=== PATIENT | female | born 1975 | race American Indian/Alaskan Native ===

== ENCOUNTER 2017-12-25 15:56 | Inpatient (IN) | payer MEDICAID ==
[2017-12-25 16:04] VITALS: BMI 10.6
--- NOTE | 2017-12-25 17:01 | ED PDOC ---
Arrival/HPI - General Time Seen by Provider: 12/25/17 16:15 Historian: Patient, Family (Mother) - History of Present Illness Narrative History of Present Illness (Text): 12/25/17 16:20 A 42 year old female, whose past medical history includes mental retardation, presents to the emergency department accompanied by mother complaining of hypoglycemic episode that occurred today. Per patient's mother, patient was noted to be not feeling well this morning and would appear to be intermittently confused. Mother further noted Patient had a brief episode of looking straight and was unresponsive to any commands. Mother reported patient sustained a seizure and ems was called. EMS noted patient's blood sugar was very low and administered an amp of D50 prior to arrival and patient was noted to have a low body temperature of 86.7. Mother denies any recent sick contacts, sick hospitalizations, fever, chills, dysuria, hematuria, bowel incontinence, or any other symptoms. A more complete HPI is unable to be obtained due to the patient's clinical condition. PMD: Dr. Ritchie Mariano Time/Duration: 4-6 hours (earlier today) Symptom Onset: Gradual Symptom Course: Worsening Quality: Unable to Describe Severity Level: Severe Activities at Onset: Light Context: Home Past Medical History - Provider Review Nursing Documentation Reviewed: Yes - Travel History Have you recently traveled outside [place] w/in the past 3 mons?: No Family/Social History - Physician Review Nursing Documentation Reviewed: Yes Family/Social History: Unknown Family HX Smoking Status: Never Smoked Allergies/Home Meds Allergies/Adverse Reactions: Allergies No Known Allergies Allergy (Verified 12/25/17 21:52) Home Medications: Home Meds Medication Instructions Recorded Confirmed Risperidone [Risperdal] 1 mg PO DAILY 12/25/17 12/25/17 Review of Systems - Physician Review All systems were reviewed & negative as marked: Yes - Review of Systems Systems not reviewed;Unavailable: Other Physical Exam Vital Signs Reviewed: Yes Vital Signs Temp Pulse Resp BP Pulse Ox 12/25/17 20:10 90.0 F L 84 16 119/74 12/25/17 18:51 89.4 F L 87 18 93 L 12/25/17 16:33 96.7 F L 71 19 123/65 98 Temperature: Hypothermic Blood Pressure: Normal Pulse: Regular Respiratory Rate: Normal Appearance: Positive for: Well-Appearing, Non-Toxic, Comfortable Pain Distress: None Mental Status: Positive for: Alert and Oriented X 3 - Systems Exam Head: Present: Atraumatic, Normocephalic Pupils: Present: PERRL Extroacular Muscles: Present: EOMI Conjunctiva: Present: Normal Mouth: Present: Moist Mucous Membranes Neck: Present: Normal Range of Motion Respiratory/Chest: Present: Clear to Auscultation, Good Air Exchange, Tachypneic , Other (contracted to left side ). No: Respiratory Distress, Accessory Muscle Use, Wheezes, Decreased Breath Sounds, Rales, Retracting, Rhonchi, Tender to Palpation Cardiovascular: Present: Regular Rate and Rhythm, Normal S1, S2. No: Murmurs Abdomen: Present: Other (Abdomen is scaphoid; pulses strong and equal, bilateral and present). No: Tenderness, Distention, Normal Bowel Sounds, Peritoneal Signs, Rebound, Guarding, McBurney's Point Tender, Rovsing's Sign Present, Hernias, Feeding Tubes, Ostomy Tubes, Mass/Organomegaly, Scars Back: Present: Normal Inspection Upper Extremity: Present: Normal Inspection. No: Cyanosis, Edema Lower Extremity: Present: Normal Inspection. No: Edema Neurological: Present: GCS=15, CN II-XII Intact, Speech Normal Skin: Present: Warm, Dry, Normal Color. No: Rashes Psychiatric: Present: Alert, Oriented x 3, Normal Insight, Normal Concentration Medical Decision Making ED Course and Treatment: 12/25/17 16:25 Impression: A 42 y/o F w/ h/o mental retardation presenting with hypoglycemic seizure Differential Diagnosis included but are not limited to: - Neoplasm - Sepsis - UTI - PNA Plan: -- EKG -- Labs -- VBG --Antibiotics --IVF -- Chest X-ray -- Blood Culture -- Urine Culture -- Urinalysis -- Reassess and disposition Prior Visits: Notes and results from previous visits were reviewed. Progress Notes: 12/25/17 16:25 Patient noted to be hypoglycemic to 60s, additional d50 syringe given. IVF switched from NS to D51/2NS. Hospitalist called. 12/25/17 17:[address] Whitmore(hospitalist), who is aware and agrees with decision to pursue head CT and ultrasound of abdomen; will follow up on patient once imaging studies have been resulted. 12/25/17 18:[address] Ruffin(health unit supervisor), who has agreed to come to emergency room and examine patient. 12/25/17 18:[address] Ruffin wo accepts him onto his service. Dr. Whitmore updated on patient's status. - Lab Interpretations Microbiology Results: Microbiology Results 12/25/17 16:45 Blood Blood Culture - Preliminary NO GROWTH AFTER 24 HOURS 12/25/17 16:30 Blood Blood Culture - Preliminary NO GROWTH AFTER 24 HOURS Lab Results: 12/25/17 16:45 12/25/17 16:45 Lab Results 12/25/17 18:00: Acetaminophen < 10.0 L 12/25/17 17:51: POC Glucose (mg/dL) 63 L 12/25/17 16:45: pO2 28 L, VBG pH 7.22 L, VBG pCO2 65.0 H, VBG HCO3 26.6, VBG Total CO2 28.6 H, VBG O2 Sat (Calc) 42.6, VBG Base Excess -2.5 L, VBG Potassium 4.3, Sodium 143.0, Chloride 113.0 H, Glucose 107 H, Lactate 1.4, FiO2 21.0, Venous Blood Potassium 4.3 12/25/17 16:45: PT 25.8 H, INR 2.23, APTT 27.2 12/25/17 16:45: WBC 9.1, RBC 3.47 L, Hgb 9.0 L, Hct 27.2 L, MCV 78.4 L, MCH 25.9 , MCHC 33.1, RDW 15.9 H, Plt Count 137, MPV 10.9, Gran % 85.1 H, Lymph % (Auto) 13.7 L, Starr % (Auto) 1.2, Eos % (Auto) 0.0 L, Baso % (Auto) 0.0, Gran # 7.71 H , Lymph # (Auto) 1.2, Starr # (Auto) 0.1, Eos # (Auto) 0.0, Baso # (Auto) 0.00 12/25/17 16:45: Beta HCG, Quant < 2.39 12/25/17 16:45: Sodium 143, Chloride 113 H, Potassium 4.5, Carbon Dioxide 26, Anion Gap 9 L, BUN 41 H, Creatinine 0.7, Est GFR ( Amer) > 60, Est GFR ( Non-Af Amer) > 60, Random Glucose 106, Calcium 6.3 L*, Total Bilirubin 0.7, AST 1576 H, ALT 1103 H, Alkaline Phosphatase 924 H, Troponin I < 0.01, Total Protein 4.4 L, Albumin 1.7 L, Globulin 2.6, Albumin/Globulin Ratio 0.7 L 12/25/17 16:15: POC Glucose (mg/dL) 213 H - RAD Interpretation Radiology Orders: 12/25/17 18:03 HEAD W/O CONTRAST [CT] Stat ABDOMEN COMPLETE [US] Stat 12/25/17 20:18 CHEST PORTABLE [RAD] Stat - Medication Orders Current Medication Orders: Heparin Sodium (Porcine) (Heparin) 5,000 units SC Q12 NASH PRN Reason: Protocol Last Admin: 12/26/17 22:25 Dose: 5,000 units Subcutaneous Administrations Document 12/26/17 22:25 AYAAN (Rec: 12/26/17 23:25 [facility] Injection Site MAR Injection Site Left Abdomen Charges for Administration # of Subcutaneous Administrations 1 Hydrocortisone Sodium Succinate (Solu-Cortef) 50 mg IVP Q6 [facility] Last Admin: 12/26/17 23:47 Dose: 50 mg IVP Administration Document 12/26/17 23:47 AYAAN (Rec: 12/26/17 23:47 [facility]) Charges for Administration # of IVP Administrations 1 Norepinephrine Bitartrate 8 mg (/ Sodium Chloride) 508 mls @ 15.24 mls/hr IV .Q24H PRN; Protocol; 4 MCG/MIN PRN Reason: TITRATE PER MD ORDER Last Titration: 12/26/17 23:46 Dose: 0 mcg/min, 0 mls/hr Titration Intervention Document 12/26/17 23:46 AYAAN (Rec: 12/26/17 23:46 [facility]) Titration Intake Titration Intake 10 Cumulative Intake 332 Cumulative Intake (Rx) 332 Waste Amount 0 Container Volume 176 Titration Dosing Titration Dose 0 IV Rate 0 Intake/Decrease Paused Cumulative Dose 5.228 Piperacillin Sod/Tazobactam Sod (Zosyn 3.375 In Ns 100ml) 100 mls @ 200 mls/hr IVPB Q6 NASH PRN Reason: Protocol Stop: 01/01/18 20:33 Last Admin: 12/26/17 23:48 Dose: 200 mls/hr eMAR Start Stop Document 12/26/17 23:48 AYAAN (Rec: 12/26/17 23:48 [facility]AN [facility]) Intravenous Solution Start Date 12/26/17 Start Time 23:48 End Date 12/27/17 End time 00:40 Total Infusion Time 52 Vancomycin HCl (Vancomycin 1gm) 1 gm in 250 mls @ 167 mls/hr IVPB Q12 NASH PRN Reason: Protocol Last Admin: 12/26/17 10:46 Dose: Levetiracetam 500 mg/ Sodium (Chloride) 105 mls @ 460 mls/hr IV Q12 NASH Last Admin: 12/26/17 22:25 Dose: 460 mls/hr eMAR Start Stop Document 12/26/17 22:25 AYAAN (Rec: 12/26/17 23:26 [facility]YAAN [facility]) Intravenous Solution Start Date 12/26/17 Start Time 22:00 End Date 12/26/17 End time 23:00 Total Infusion Time 60 Dextrose/Sodium Chloride (Dextrose 5%/0.45% Ns 1000 Ml) 1,000 mls @ 125 mls/hr IV .Q8H NASH Last Admin: 12/26/17 23:24 Dose: 125 mls/hr Pantoprazole Sodium (Protonix Inj) 40 mg IVP DAILY NASH Last Admin: 12/26/17 09:18 Dose: 40 mg IVP Administration Document 12/26/17 09:18 AE (Rec: 12/26/17 09:18 AE [id number]) Charges for Administration # of IVP Administrations 1 Discontinued Medications Albumin Human (Albumin Human 25% (12.5 Gm/50 Ml)) 12.5 gm IV ONCE ONE Stop: 12/26/17 03:44 Last Admin: 12/26/17 04:08 Dose: 12.5 gm eMAR Start Stop Document 12/26/17 04:08 MG (Rec: 12/26/17 04:09 MG [id number]) Intravenous Solution Start Date 12/26/17 Start Time 04:08 End Date 12/26/17 End time 05:08 Total Infusion Time 60 Atropine Sulfate (Atropine) 0.5 mg IVP STAT STA Stop: 12/25/17 20:05 Last Admin: 12/25/17 20:10 Dose: 0.5 mg IVP Administration Document 12/25/17 20:10 CNR (Rec: 12/25/17 20:17 CNR [id number]) Charges for Administration # of IVP Administrations 1 Calcium Gluconate (Calcium Gluconate Iv) 1,000 mg IVP ONCE ONE Stop: 12/25/17 20:12 Last Admin: 12/25/17 20:17 Dose: 1,000 mg IVP Administration Document 12/25/17 20:17 CNR (Rec: 12/25/17 20:17 CNR [id number]) Charges for Administration # of IVP Administrations 1 Dextrose (Dextrose 50% Inj) 50 ml IVP STAT STA Stop: 12/25/17 17:57 Last Admin: 12/25/17 17:54 Dose: 50 ml IVP Administration Document 12/25/17 17:54 GMD (Rec: 12/25/17 19:05 GMD [id number]) Charges for Administration # of IVP Administrations 1 Dextrose (Dextrose 50% Inj) 50 ml IVP STAT STA Stop: 12/26/17 12:45 Dextrose/Sodium Chloride (Dextrose 5%/0.45% Ns 1000 Ml) 1,000 mls @ 200 mls/hr IV .Q5H NASH Last Admin: 12/26/17 00:11 Dose: 200 mls/hr eMAR Start Stop Document 12/26/17 00:11 MG (Rec: 12/26/17 00:11 MG [id number]) Intravenous Solution Start Date 12/26/17 Start Time 00:11 Vancomycin HCl (Vancomycin 1gm) 1 gm in 250 mls @ 167 mls/hr IVPB DAILY NASH PRN Reason: Protocol Last Admin: 12/26/17 09:21 Dose: 167 mls/hr eMAR Start Stop Document 12/26/17 09:21 AE (Rec: 12/26/17 09:24 AE [id number]) Intravenous Solution Start Date 12/26/17 Start Time 09:24 End Date 12/26/17 End time 11:00 Total Infusion Time 96 Sodium Chloride (Sodium Chloride 0.9%) 500 mls @ 500 mls/hr IV .Q1H STA Stop: 12/26/17 03:02 Last Admin: 12/26/17 02:05 Dose: 500 mls/hr eMAR Start Stop Document 12/26/17 02:05 AYAAN (Rec: 12/26/17 03:17 [facility]YAAN [email or web address]) Intravenous Solution Start Date 12/26/17 Start Time 02:00 End Date 12/26/17 End time 02:30 Total Infusion Time 30 Sodium Chloride (Sodium Chloride 0.9%) 500 mls @ 500 mls/hr IV .Q1H NASH Last Admin: 12/26/17 02:50 Dose: 500 mls/hr eMAR Start Stop Document 12/26/17 02:50 AYAAN (Rec: 12/26/17 03:20 AYAAN [email or web address]) Intravenous Solution Start Date 12/26/17 Start Time 02:45 End Date 12/26/17 End time 03:30 Total Infusion Time 45 Sodium Chloride (Sodium Chloride 0.9%) 1,000 mls @ 125 mls/hr IV .Q8H NASH Last Admin: 12/26/17 06:00 Dose: 125 mls/hr eMAR Start Stop Document 12/26/17 06:00 MG (Rec: 12/26/17 06:35 MG [id number]) Intravenous Solution Start Date 12/26/17 Start Time 06:00 Albumin Human (Albumin Human 25% (12.5 Gm/50 Ml)) 50 mls @ 1 mls/min IVPB ONCE ONE Stop: 12/26/17 06:04 Last Admin: 12/26/17 06:20 Dose: 1 mls/min eMAR Start Stop Document 12/26/17 06:20 MG (Rec: 12/26/17 06:21 MG [id number]) Intravenous Solution Start Date 12/26/17 Start Time 06:30 End Date 12/26/17 End time 07:20 Total Infusion Time 50 Sodium Chloride (Sodium Chloride 0.9%) 500 mls @ 999 mls/hr IV .Q31M STA Stop: 12/26/17 08:12 Last Admin: 12/26/17 08:05 Dose: 999 mls/hr eMAR Start Stop Document 12/26/17 08:05 AE (Rec: 12/26/17 08:06 AE [id number]) Intravenous Solution Start Date 12/26/17 Start Time 08:06 End Date 12/26/17 End time 09:06 Total Infusion Time 60 Potassium Chloride (Potassium Chloride 20 Meq/100 Ml) 20 meq in 100 mls @ 50 mls/hr IVPB Q2H NASH Stop: 12/26/17 12:29 Last Admin: 12/26/17 12:30 Dose: 50 mls/hr eMAR Start Stop Document 12/26/17 12:30 AE (Rec: 12/26/17 14:33 AE [id number]) Intravenous Solution Start Date 12/26/17 Start Time 12:30 End Date 12/26/17 End time 14:30 Total Infusion Time 120 Magnesium Sulfate/Dextrose (Magnesium Sulfate 1 Gm/100 Ml D5w) 1 gm in 100 mls @ 100 mls/hr IVPB ONCE ONE Stop: 12/26/17 10:30 Last Admin: 12/26/17 13:30 Dose: 100 mls/hr eMAR Start Stop Document 12/26/17 13:30 AE (Rec: 12/26/17 14:30 AE [id number]) Intravenous Solution Start Date 12/26/17 Start Time 13:30 End Date 12/26/17 End time 14:30 Total Infusion Time 60 Levetiracetam 1,000 mg/ Sodium (Chloride) 110 mls @ 440 mls/hr IV ONCE ONE Stop: 12/26/17 11:40 Last Admin: 12/26/17 12:30 Dose: 440 mls/hr eMAR Start Stop Document 12/26/17 12:30 AE (Rec: 12/26/17 14:29 AE [id number]) Intravenous Solution Start Date 12/26/17 Start Time 12:30 End Date 12/26/17 End time 12:45 Total Infusion Time 15 Lorazepam (Ativan) 0.5 mg IVP ONCE ONE PRN Reason: Protocol Stop: 12/25/17 21:07 Last Admin: 12/25/17 20:30 Dose: 0.5 mg IVP Administration Document 12/25/17 20:30 CNR (Rec: 12/25/17 21:07 CNR [id number]) Charges for Administration # of IVP Administrations 1 Pneumococcal Polyvalent Vaccine (Pneumovax 23 Vaccine) 0.5 ml IM .ONCE ONE Stop: 12/25/17 23:02 Last Admin: 12/26/17 08:59 Dose: Immunization Registry Document 12/26/17 08:59 AE (Rec: 12/26/17 08:59 AE [id number]) Immunization Registry Consent Date 12/25/17 - Scribe Statement The provider has reviewed the documentation as recorded by the José Luisibmelanie Boyd All medical record entries made by the Scribe were at my direction and personally dictated by me. I have reviewed the chart and agree that the record accurately reflects my personal performance of the history, physical exam, medical decision making, and the department course for this patient. I have also personally directed, reviewed, and agree with the discharge instructions and disposition. Disposition/Present on Arrival - Present on Arrival Any Indicators Present on Arrival: No History of DVT/PE: No History of Uncontrolled Diabetes: No Urinary Catheter: No History of Decub. Ulcer: No - Disposition Have Diagnosis and Disposition been Completed?: Yes Diagnosis: Hypoglycemia, Seizure Disposition: HOSPITALIZED Disposition Time: 19:20 Patient Plan: ICU Patient Problems: Current Active Problems Problem Status Onset Hypoglycemia Acute Seizure Acute Condition: SERIOUS
[2017-12-25 17:02] LABS: VENOUS BLOOD GAS BASE EXCESS -2.5 mmol/L (0.0-2.0); VENOUS BLOOD GAS PO2 28 mm/Hg (30-55); VENOUS BLOOD PH 7.22 (7.32-7.43)
[2017-12-25 17:07] LABS: GRAN # 7.71 (1.4-6.5); GRAN % 85.1 % (50.0-68.0); LYMPH # 1.2 (1.2-3.4); LYMPH % 13.7 % (22.0-35.0); MEAN CELL VOLUME 78.4 fl (80.0-105.0); MEAN CORPUSCULAR HEMOGLOBIN 25.9 pg (25.0-35.0); MEAN CORPUSCULAR HGB CONC 33.1 g/dl (31.0-37.0); MEAN PLATELET VOLUME 10.9 fl (7.0-11.0); MONO # 0.1 (0.1-0.6); MONO % 1.2 % (1.0-6.0); RBC 3.47 10^6/uL (3.5-6.1); RED CELL DISTRIBUTION WIDTH 15.9 % (11.5-14.5); WHITE BLOOD COUNT 9.1 10^3/ul (4.5-11.0)
[2017-12-25 17:11] LABS: INR 2.23; PARTIAL THROMBOPLASTIN TIME 27.2 Seconds (25.1-36.5); PROTHROMBIN TIME 25.8 SECONDS (9.4-12.5)
[2017-12-25 17:23] LABS: TROPONIN I < 0.01 ng/mL
[2017-12-25 17:39] LABS: ALB/GLOB RATIO 0.7 (1.1-1.8); ALBUMIN 1.7 g/dL (3.0-4.8); ALT/SGPT 1103 U/L (7-56); BLOOD UREA NITROGEN 41 mg/dL (7-21); CALCIUM 6.3 mg/dL (8.4-10.5); GFR NON-AFRICAN AMERICAN > 60
[2017-12-25 17:45] LABS: AST/SGOT 1576 U/L (14-36)
[2017-12-25] MEDS ORDERED: Dextrose 50% SYRINGE Inj (50 ml) ONE (17:54)
[2017-12-25] MEDS ORDERED: Dextrose 50% SYRINGE Inj (50 ml) IVP STA (17:56)
--- NOTE | 2017-12-25 18:52 | CARD ---
APPROVED REPORT Date of service: 12/25/2017 EKG Measurement Heart [id number] <Conclusion> A Fib with slow Ventricular response Nonspecific ST and T wave abnormality Prolonged QT Abnormal ECG
[2017-12-25] MEDS: Dextrose 5%/0.45% NS 1,000 ML IV SCH (19:05)
[2017-12-25 19:38] LABS: URINE BILIRUBIN NEGATIVE (NEGATIVE); URINE BLOOD NEGATIVE (NEGATIVE); URINE GLUCOSE (UA) NEGATIVE (NEGATIVE); URINE LEUKOCYTE ESTERASE NEGATIVE Leu/uL (NEGATIVE); URINE PROTEIN NEGATIVE mg/dL (<30 mg/dL); URINE UROBILINOGEN 0.2 E.U./dL (<1 E.U./dL)
[2017-12-25 19:40] LABS: URINE APPEARANCE CLEAR (CLEAR); URINE COLOR LIGHT YELLOW (YELLOW)
[2017-12-25 20:22] LABS: ARTERIAL BLOOD GAS HCO3 21.6 mmol/L (21-28); ARTERIAL BLOOD GAS HEMOGLOBIN 7.8 g/dL (11.7-17.4); ARTERIAL BLOOD GAS O2 CAPACITY 10.9 mL/dl (16-24); ARTERIAL BLOOD GAS O2 CONTENT 10.9 ML/dl (15-23); ARTERIAL BLOOD GAS O2 SAT 99.6 % (95-98); ARTERIAL BLOOD GAS PCO2 41 mm/Hg (35-45); ARTERIAL BLOOD GAS PH 7.33 (7.35-7.45); ARTERIAL BLOOD GAS TCO2 22.9 mmol.L (22-28)
--- NOTE | 2017-12-25 20:52 | CP.PCM.HP ---
<Manoj Knox - Last Filed: 12/26/17 05:49> History of Present Illness - History of Present Illness History of Present Illness: Manoj Knox, PGY-1 History and Physical for Hospitalist Service CC: Hypoglycemia HPI: Ms. Mccartney is a 42 year old Female with developmental delay who presents with unresponsiveness and a seizure in the field. Patient lives with her mother , who provided the history. Patient had no symptoms until the late morning, when she started feeling weak and was staring into space and was not responding to questions. These symptoms had never occurred previously. Mother reports that patient's legs gave out, and she fell to the ground. Patient's mother was unclear whether she hit her head or how she landed on the ground. EMS was called , at which time they found that her sugars were in the 40's. Patient received 1 amp of D50 and reportedly had seizure activity after infusion. Patient's mother does not report any seizure activity in the past. Remainder of HPI and ROS was unobtainable due to patient's mental status. PMHx: history of mental retardation PSHx: none All: NKDA Social: denies ETOH, tobacco, IVDU. Currently lives at home with mom Family Hx: noncontributory Meds: Risperidone 1 mg PO daily PMD: Dr. Laura Pharmacy: [facility] Present on Admission - Present on Admission Any Indicators Present on Admission: Yes Decubitus Ulcer Present: Yes Decubitus Ulcer Location: R gluteal area Past Patient History - Past Social History Smoking Status: Never Smoked - CARDIAC Hx Cardiac Disorders: No - PULMONARY Hx Respiratory Disorders: No - NEUROLOGICAL Hx Neurological Disorder: No - HEENT Hx HEENT Problems: No - RENAL Hx Chronic Kidney Disease: No - ENDOCRINE/METABOLIC Hx Endocrine Disorders: No - HEMATOLOGICAL/ONCOLOGICAL Hx Blood Disorders: No - INTEGUMENTARY Hx Dermatological Problems: No - MUSCULOSKELETAL/RHEUMATOLOGICAL Hx Musculoskeletal Disorders: No - GASTROINTESTINAL Hx Gastrointestinal Disorders: No - GENITOURINARY/GYNECOLOGICAL Hx Genitourinary Disorders: No - PSYCHIATRIC Hx Psychophysiologic Disorder: Yes Hx Substance Use: No Other/Comment: Developmental delay - SURGICAL HISTORY Hx Surgeries: No Meds Allergies/Adverse Reactions: Allergies Allergy/AdvReac Type Severity Reaction Status Date / Time No Known Allergies Allergy Verified 12/25/17 21:52 Physical Exam - Constitutional Appears: In Acute Distress, Unkempt, Older Than Stated Age, Cachectic - Head Exam Head Exam: ATRAUMATIC. absent: NORMAL INSPECTION, NORMOCEPHALIC - Eye Exam Eye Exam: Normal appearance Pupil Exam: PERRL Additional comments: Patient unable to cooperate with commands. - ENT Exam ENT Exam: Mucous Membranes Dry - Neck Exam Neck exam: Positive for: Normal Inspection - Respiratory Exam Respiratory Exam: Rales (bilateral bbases), NORMAL BREATHING PATTERN - Cardiovascular Exam Cardiovascular Exam: Irregular Rhythm, +S1, +S2 - GI/Abdominal Exam GI & Abdominal Exam: Tenderness. absent: Distended, Firm, Guarding, Rebound - Extremities Exam Extremities exam: Positive for: calf tenderness, pedal pulses present. Negative for: pedal edema - Back Exam Back exam: NORMAL INSPECTION - Neurological Exam Additional comments: Patient is awake, alert, responds to verbal stimuli, occasionally follows commands, and moves extremities past midline. - Psychiatric Exam Psychiatric exam: Anxious - Skin Skin Exam: Dry, Intact, Pallor, Warm Results - Vital Signs Recent Vital Signs: Last Vital Signs Temp 90.0 F L 12/25/17 20:10 Pulse 84 12/25/17 20:10 Resp 16 12/25/17 20:10 BP 119/74 12/25/17 20:10 Pulse Ox 93 L 12/25/17 18:51 - Labs Result Diagrams: 12/25/17 16:45 12/25/17 16:45 Labs: Laboratory Results - last 24 hr 12/25/17 12/25/17 12/25/17 19:34 20:03 20:19 pCO2 41 pO2 110.0 H HCO3 21.6 ABG pH 7.33 L ABG Total CO2 22.9 ABG O2 Saturation 99.6 H ABG O2 Content 10.9 L ABG Base Excess -4.0 L ABG Hemoglobin 7.8 L ABG Carboxyhemoglobin 1.4 POC ABG HHb (Measured) 0.4 ABG Methemoglobin 0.7 ABG O2 Capacity 10.9 L Hgb O2 Saturation 97.4 FiO2 21.0 POC Glucose (mg/dL) 284 H Urine Color Light yellow Urine Appearance Clear Urine pH 6.0 Ur Specific [place] 1.010 Urine Protein Negative Urine Glucose (UA) Negative Urine Ketones Negative Urine Blood Negative Urine Nitrate Negative Urine Bilirubin Negative Urine Urobilinogen 0.2 Ur Leukocyte Esterase Negative Assessment & Plan - Assessment and Plan (Free Text) Assessment: Assessment: Ms. Mccartney is a 42 year old female with a PMHx of developmental delay who presented with sepsis of unknown etiology. Plan: Neuro: - possible seizure in field vs hypoglycemia - f/u CT head w/o contrast - f/u prolactin - aspiration, fall and seizure precautions in place; Neuro checks q2 - patient had episodes of hypothermia, Tmin 86.3 F, most recent 90.0 F, placed in bear-hugger - Maintain normothermia - Neuro consult placed (Dr. Rios) - appreciate recommendations Cardio: - HR upon admission was 71 bpm, then sander to 87 bpm - BP 123/65 upon admission . Hypothermic - EKG showed A fib with RVR in the 70's, slight QT prolongation with QTc 493. - Trop neg x1. Continue to trend next 2 - unclear if patient is chronically in a. fib. Follow up with Dr. Laura in AM - cardio consut placed (Dr. Newton)- recommendations appreciated - Levophed 4 mcg/min IV PRN, reported bradycardia and hypotension in field - keep MAPs > 65 - continue to monitor vitals Pulm: - f/u CXR final read. ? Dextrocardia, ? LLL infiltrate - keep SaO2 above 92% GI: - Abdominal U/S showed Echogenic atrophic kidneys without focal abnormality, gallbladder sludge without stones, and hepatic steatosis - CT Chest/Abd/Pelvis w/o contrast for source of infection. LLL infiltrate, Left 7-9 rib fractures- ? pathological vs 2/2 to fall, abdominal and pelvic ascites - Acute Liver failure with transaminitis AST/ALT 1576/1103 - Alk Phos 924 - NGT placed - Vanc 1gm IVPB daily and Zosyn 3.375 mg IV q6h broad spectrum ABx coverage - f/u amylase/lipase - f/u Mg and Phos - prophylaxis with protonix Renal/Electrolytes: - BUN and creatinine 41/0.7. Unknown if at baseline - Ammonia of 37 - D5 1/2 NS @ 200 cc/hr - UA negative - ann in place - f/u UDS - f/u AM CMP Endo: - sugars were 63 on admission but were reportedly in 40s in the field. Amp of D50 given at that time. F/u POC - Lactate 1.4 - F/u ammonia level - Pseudohypocalcemia 6.3 with Albumin 1.7 gives corrected Ca of 7.7, Calcium gluconate 1 gm given to replete - f/u TSH - f/u GI consult (Dr. Rizo) - recommendations appreciated - accuchecks - keep patient euglycemic Heme: - Hgbs 9.0, microcytic anemia, unknown if at baseline - ABG pH 7.33/pO2 110/ HCO3 21.6 - PLT 137 - f/u AM CBC - f/u blood and urine cx - ID consult placed (Dr. Jonas) - appreciate recommendations for continued antibiotic coverage - DVT prophylaxis with subq heparin 500 units SC BID Patient seen, case reviewed, and plan discussed with Dr. Diaz. Manoj Knox, PGY-1 <Willie Diaz - Last Filed: 12/28/17 04:37> Results - Vital Signs Recent Vital Signs: Last Vital Signs Temp 99.7 F H 12/27/17 20:00 Pulse 37 L 12/27/17 22:00 Resp 18 12/27/17 18:10 BP 137/82 12/27/17 18:00 Pulse Ox 94 L 12/27/17 18:10 - Labs Result Diagrams: 12/27/17 17:40 12/27/17 19:55 Labs: Laboratory Results - last 24 hr 12/26/17 12/26/17 12/26/17 11:00 14:55 19:49 WBC RBC Hgb Hct MCV MCH MCHC RDW Plt Count MPV Gran % Lymph % (Auto) [place] % (Auto) Eos % (Auto) Baso % (Auto) Gran # Lymph # (Auto) [place] # (Auto) Eos # (Auto) Baso # (Auto) PT INR Sodium Potassium Chloride Carbon Dioxide Anion Gap BUN Creatinine Est GFR ( Amer) Est GFR (Non-Af Amer) POC Glucose (mg/dL) 143 H Random Glucose Calcium Magnesium Total Bilirubin AST ALT Alkaline Phosphatase Total Protein Albumin Globulin Albumin/Globulin Ratio Whole Blood Lead <1 Hep B Core Total Ab Non reactive 12/26/17 12/26/17 12/27/17 21:34 23:48 01:48 WBC RBC Hgb Hct MCV MCH MCHC RDW Plt Count MPV Gran % Lymph % (Auto) [place] % (Auto) Eos % (Auto) Baso % (Auto) Gran # Lymph # (Auto) [place] # (Auto) Eos # (Auto) Baso # (Auto) PT INR Sodium Potassium Chloride Carbon Dioxide Anion Gap BUN Creatinine Est GFR ( Amer) Est GFR (Non-Af Amer) POC Glucose (mg/dL) 162 H 155 H 129 H Random Glucose Calcium Magnesium Total Bilirubin AST ALT Alkaline Phosphatase Total Protein Albumin Globulin Albumin/Globulin Ratio Whole Blood Lead Hep B Core Total Ab 12/27/17 12/27/17 12/27/17 03:57 05:15 05:15 WBC 7.7 RBC 3.95 Hgb 10.9 L Hct 31.4 L MCV 79.5 L MCH 27.6 MCHC 34.7 RDW 15.0 H Plt Count 52 L MPV 10.5 Gran % 93.9 H Lymph % (Auto) 5.1 L [place] % (Auto) 0.9 L Eos % (Auto) 0.0 L Baso % (Auto) 0.1 Gran # 7.24 H Lymph # (Auto) 0.4 L [place] # (Auto) 0.1 Eos # (Auto) 0.0 Baso # (Auto) 0.01 PT INR Sodium 151 H Potassium 2.6 L* D Chloride 116 H Carbon Dioxide 27 Anion Gap 10 BUN 24 H Creatinine 0.8 Est GFR ( Amer) > 60 Est GFR (Non-Af Amer) > 60 POC Glucose (mg/dL) 100 Random Glucose 114 H Calcium 6.7 L* Magnesium Total Bilirubin 2.4 H AST 639 H D ALT 596 H Alkaline Phosphatase 547 H Total Protein 4.7 L Albumin 2.2 L Globulin 2.5 Albumin/Globulin Ratio 0.9 L Whole Blood Lead Hep B Core Total Ab 12/27/17 12/27/17 12/27/17 05:15 05:58 07:00 WBC RBC Hgb Hct MCV MCH MCHC RDW Plt Count MPV Gran % Lymph % (Auto) [place] % (Auto) Eos % (Auto) Baso % (Auto) Gran # Lymph # (Auto) [place] # (Auto) Eos # (Auto) Baso # (Auto) PT 18.2 H INR 1.57 Sodium Potassium Chloride Carbon Dioxide Anion Gap BUN Creatinine Est GFR ( Amer) Est GFR (Non-Af Amer) POC Glucose (mg/dL) 145 H Random Glucose Calcium Magnesium 1.7 Total Bilirubin AST ALT Alkaline Phosphatase Total Protein Albumin Globulin Albumin/Globulin Ratio Whole Blood Lead Hep B Core Total Ab 12/27/17 12/27/17 12/27/17 07:56 10:32 13:10 WBC 9.2 RBC 4.51 Hgb 12.6 Hct 36.0 MCV 79.8 L MCH 27.9 MCHC 35.0 RDW 15.2 H Plt Count 49 L* MPV 10.3 Gran % 93.6 H Lymph % (Auto) 5.4 L [place] % (Auto) 1.0 Eos % (Auto) 0.0 L Baso % (Auto) 0.0 Gran # 8.63 H Lymph # (Auto) 0.5 L [place] # (Auto) 0.1 Eos # (Auto) 0.0 Baso # (Auto) 0.00 PT INR Sodium Potassium Chloride Carbon Dioxide Anion Gap BUN Creatinine Est GFR ( Amer) Est GFR (Non-Af Amer) POC Glucose (mg/dL) 129 H 151 H Random Glucose Calcium Magnesium Total Bilirubin AST ALT Alkaline Phosphatase Total Protein Albumin Globulin Albumin/Globulin Ratio Whole Blood Lead Hep B Core Total Ab 12/27/17 12/27/17 12/27/17 13:28 13:30 16:16 WBC RBC Hgb Hct MCV MCH MCHC RDW Plt Count MPV Gran % Lymph % (Auto) [place] % (Auto) Eos % (Auto) Baso % (Auto) Gran # Lymph # (Auto) [place] # (Auto) Eos # (Auto) Baso # (Auto) PT INR Sodium 152 H Potassium 3.2 L Chloride 114 H Carbon Dioxide 29 Anion Gap 12 BUN 21 Creatinine 0.8 Est GFR ( Amer) > 60 Est GFR (Non-Af Amer) > 60 POC Glucose (mg/dL) 169 H 196 H Random Glucose 166 H Calcium 7.1 L Magnesium Total Bilirubin 2.7 H AST 639 H ALT 660 H Alkaline Phosphatase 680 H D Total Protein 5.4 L Albumin 2.6 L Globulin 2.7 Albumin/Globulin Ratio 0.9 L Whole Blood Lead Hep B Core Total Ab 12/27/17 12/27/17 12/27/17 17:40 18:03 19:43 WBC 9.0 RBC 4.61 Hgb 13.1 Hct 36.8 MCV 79.8 L MCH 28.4 MCHC 35.6 RDW 15.4 H Plt Count 51 L MPV 10.5 Gran % 92.9 H Lymph % (Auto) 5.9 L [place] % (Auto) 1.2 Eos % (Auto) 0.0 L Baso % (Auto) 0.0 Gran # 8.33 H Lymph # (Auto) 0.5 L [place] # (Auto) 0.1 Eos # (Auto) 0.0 Baso # (Auto) 0.00 PT INR Sodium Potassium Chloride Carbon Dioxide Anion Gap BUN Creatinine Est GFR ( Amer) Est GFR (Non-Af Amer) POC Glucose (mg/dL) 177 H 203 H Random Glucose Calcium Magnesium Total Bilirubin AST ALT Alkaline Phosphatase Total Protein Albumin Globulin Albumin/Globulin Ratio Whole Blood Lead Hep B Core Total Ab 12/27/17 19:55 WBC RBC Hgb Hct MCV MCH MCHC RDW Plt Count MPV Gran % Lymph % (Auto) [place] % (Auto) Eos % (Auto) Baso % (Auto) Gran # Lymph # (Auto) [place] # (Auto) Eos # (Auto) Baso # (Auto) PT INR Sodium 149 H Potassium 3.2 L Chloride 113 H Carbon Dioxide 30 Anion Gap 10 BUN 19 Creatinine 0.8 Est GFR ( Amer) > 60 Est GFR (Non-Af Amer) > 60 POC Glucose (mg/dL) Random Glucose 196 H Calcium 7.5 L Magnesium 2.0 Total Bilirubin 2.3 H AST 491 H D ALT 617 H Alkaline Phosphatase 652 H Total Protein 5.4 L Albumin 2.6 L Globulin 2.8 Albumin/Globulin Ratio 0.9 L Whole Blood Lead Hep B Core Total Ab Attending/Attestation - Attestation I have personally seen and examined this patient.: Yes I have fully participated in the care of the patient.: Yes I have reviewed all pertinent clinical information: Yes Notes (Text): 12/28/17 04:35 Patient was seen when she was in the ER . Medical record was reviewed. Agree with history, physical examination, assessment and plan. 42 year old womanis here with hypoglycemia,confusion,possible seizure, hypothermia,hypotension,atrial fibrillation, bradyarrhythmia, sepsis,anemia, dementia,prolonged QT,hypocalcemia,hypoalbuminemia,malnourishment,cachexia.
[2017-12-25] MEDS: Norepinephrine 8 MG in Sodium Chloride 0.9% 500 ML IV PRN (22:05)
[2017-12-25] MEDS ORDERED: Pneumococcal 23-Valent Vaccine IM ONE (23:01)
[2017-12-25] MEDS: Vancomycin 1gm in NS 250ml 1 GM/250 ML BAG IVPB SCH (23:08)
[2017-12-25] MEDS: Piperacillin/Tazobact 3.375 gm 100 ML IVPB SCH (23:09)
[2017-12-25 23:44] LABS: BARBITURATES, UR NEGATIVE (NEGATIVE); BENZODIAZEPINES, UR NEGATIVE (NEGATIVE); OPIATES, UR NEGATIVE (NEGATIVE); PHENCYCLIDINE, UR NEGATIVE (NEGATIVE)
[2017-12-26] MEDS: Dextrose 5%/0.45% NS 1,000 ML IV SCH ×3 (00:11→23:24)
[2017-12-26] MEDS: Piperacillin/Tazobact 3.375 gm 100 ML IVPB SCH ×5 (00:39→23:48)
[2017-12-26] MEDS ORDERED: Sodium Chloride 0.9% 500 ML IV STA ×2 (02:03→07:42)
--- NOTE | 2017-12-26 02:32 | CP.PCM.CON ---
Past Patient History - Past Social History Smoking Status: Never Smoked - CARDIAC Hx Cardiac Disorders: No - PULMONARY Hx Respiratory Disorders: No - NEUROLOGICAL Hx Neurological Disorder: No - HEENT Hx HEENT Problems: No - RENAL Hx Chronic Kidney Disease: No - ENDOCRINE/METABOLIC Hx Endocrine Disorders: No - HEMATOLOGICAL/ONCOLOGICAL Hx Blood Disorders: No - INTEGUMENTARY Hx Dermatological Problems: No - MUSCULOSKELETAL/RHEUMATOLOGICAL Hx Musculoskeletal Disorders: No - GASTROINTESTINAL Hx Gastrointestinal Disorders: No - GENITOURINARY/GYNECOLOGICAL Hx Genitourinary Disorders: No - PSYCHIATRIC Hx Psychophysiologic Disorder: Yes Hx Substance Use: No Other/Comment: Developmental delay - SURGICAL HISTORY Hx Surgeries: No Meds Allergies/Adverse Reactions: Allergies Allergy/AdvReac Type Severity Reaction Status Date / Time No Known Allergies Allergy Verified 12/25/17 21:52 - Medications Medications: Current Medications Heparin Sodium (Porcine) (Heparin) 5,000 units SC BID NASH PRN Reason: Protocol Dextrose/Sodium Chloride (Dextrose 5%/0.45% Ns 1000 Ml) 1,000 mls @ 200 mls/hr IV .Q5H [facility] Last Admin: 12/26/17 00:11 Dose: 200 mls/hr Norepinephrine Bitartrate 8 mg (/ Sodium Chloride) 508 mls @ 15.24 mls/hr IV .Q24H PRN; Protocol; 4 MCG/MIN PRN Reason: TITRATE PER MD ORDER Last Titration: 12/26/17 00:30 Dose: 3 mcg/min, 11.43 mls/hr Vancomycin HCl (Vancomycin 1gm) 1 gm in 250 mls @ 167 mls/hr IVPB DAILY NASH PRN Reason: Protocol Last Admin: 12/25/17 23:08 Dose: 167 mls/hr Piperacillin Sod/Tazobactam Sod (Zosyn 3.375 In Ns 100ml) 100 mls @ 200 mls/hr IVPB Q6 NASH PRN Reason: Protocol Stop: 01/01/18 20:33 Last Admin: 12/26/17 00:39 Dose: Not Given Sodium Chloride (Sodium Chloride 0.9%) 500 mls @ 500 mls/hr IV .Q1H STA Stop: 12/26/17 03:02 Pantoprazole Sodium (Protonix Inj) [address] [facility] Results - Vital Signs Recent Vital Signs: Last Vital Signs Temp 98.1 F 12/26/17 01:21 Pulse 57 L 12/26/17 01:21 Resp 22 12/26/17 01:21 BP 87/57 L 12/26/17 01:15 Pulse Ox 98 12/26/17 01:21 - Labs Result Diagrams: 12/25/17 16:45 12/25/17 16:45 Labs: Laboratory Results - last 24 hr 12/25/17 12/25/17 12/25/17 19:34 20:03 20:19 pCO2 41 pO2 110.0 H HCO3 21.6 ABG pH 7.33 L ABG Total CO2 22.9 ABG O2 Saturation 99.6 H ABG O2 Content 10.9 L ABG Base Excess -4.0 L ABG Hemoglobin 7.8 L ABG Carboxyhemoglobin 1.4 POC ABG HHb (Measured) 0.4 ABG Methemoglobin 0.7 ABG O2 Capacity 10.9 L Hgb O2 Saturation 97.4 FiO2 21.0 POC Glucose (mg/dL) 284 H Ammonia Amylase Lipase Urine Color Light yellow Urine Appearance Clear Urine pH 6.0 Ur Specific [place] 1.010 Urine Protein Negative Urine Glucose (UA) Negative Urine Ketones Negative Urine Blood Negative Urine Nitrate Negative Urine Bilirubin Negative Urine Urobilinogen 0.2 Ur Leukocyte Esterase Negative Urine Opiates Screen Urine Methadone Screen Ur Barbiturates Screen Ur Phencyclidine Scrn Ur Amphetamines Screen U Benzodiazepines Scrn U Oth Cocaine Metabols U Cannabinoids Screen 12/25/17 12/25/17 12/25/17 21:30 21:30 23:09 pCO2 pO2 HCO3 ABG pH ABG Total CO2 ABG O2 Saturation ABG O2 Content ABG Base Excess ABG Hemoglobin ABG Carboxyhemoglobin POC ABG HHb (Measured) ABG Methemoglobin ABG O2 Capacity Hgb O2 Saturation FiO2 POC Glucose (mg/dL) Ammonia 37 H Amylase 367 H Lipase 549 H Urine Color Urine Appearance Urine pH Ur Specific [place] Urine Protein Urine Glucose (UA) Urine Ketones Urine Blood Urine Nitrate Urine Bilirubin Urine Urobilinogen Ur Leukocyte Esterase Urine Opiates Screen Negative Urine Methadone Screen Negative Ur Barbiturates Screen Negative Ur Phencyclidine Scrn Negative Ur Amphetamines Screen Negative U Benzodiazepines Scrn Negative U Oth Cocaine Metabols Negative U Cannabinoids Screen Negative
[2017-12-26] MEDS ORDERED: Sodium Chloride 0.9% 500 ML IV SCH (02:45)
[2017-12-26] MEDS ORDERED: Sodium Chloride 0.9% 1,000 ML IV SCH (02:45)
[2017-12-26] MEDS ORDERED: Albumin Human 25% (12.5 gm/50 ml) IV ONE (03:43)
[2017-12-26] MEDS ORDERED: Albumin Human 25% (12.5gm/50 ML) IVPB ONE (05:15)
[2017-12-26 06:20] LABS: TROPONIN I < 0.01 ng/mL
[2017-12-26 06:38] LABS: GRAN # 7.4 (1.4-6.5); GRAN % 89.1 % (50.0-68.0); HEMOGLOBIN 7.3 g/dL (12.0-16.0); LYMPH # 0.8 (1.2-3.4); LYMPH % 9.1 % (22.0-35.0); MEAN CELL VOLUME 77.5 fl (80.0-105.0); MEAN CORPUSCULAR HEMOGLOBIN 25.7 pg (25.0-35.0); MEAN CORPUSCULAR HGB CONC 33.2 g/dl (31.0-37.0); MEAN PLATELET VOLUME 10.7 fl (7.0-11.0); MONO # 0.2 (0.1-0.6); MONO % 1.8 % (1.0-6.0); RBC 2.84 10^6/uL (3.5-6.1); WHITE BLOOD COUNT 8.3 10^3/ul (4.5-11.0)
[2017-12-26 07:03] LABS: TROPONIN I < 0.01 ng/mL
[2017-12-26 07:57] LABS: ALB/GLOB RATIO 0.8 (1.1-1.8); ALBUMIN 2.1 g/dL (3.0-4.8); ALT/SGPT 788 U/L (7-56); AST/SGOT > 750 U/L (14-36); BLOOD UREA NITROGEN 31 mg/dL (7-21); CALCIUM 6.4 mg/dL (8.4-10.5); GFR NON-AFRICAN AMERICAN > 60
--- NOTE | 2017-12-26 08:03 | RAD ---
Date of service: 12/25/2017 HISTORY: seizure COMPARISON: No prior. FINDINGS: LUNGS: Limited examination as the left costophrenic angle has been excluded from the film. Allowing for this, the lungs are clear. PLEURA: No significant pleural effusion identified, no pneumothorax apparent. CARDIOVASCULAR: Normal. OSSEOUS STRUCTURES: No significant abnormalities. VISUALIZED UPPER ABDOMEN: Normal. OTHER FINDINGS: None. IMPRESSION: No acute findings.
[2017-12-26] MEDS: Vancomycin 1gm in NS 250ml 1 GM/250 ML BAG IVPB SCH ×3 (09:21→22:00)
[2017-12-26 09:23] LABS: INR 1.69; PROTHROMBIN TIME 19.6 SECONDS (9.4-12.5)
[2017-12-26] MEDS ORDERED: Magnesium Sulfate 1 gm in D5W 1 GM/100 ML BAG IVPB ONE (09:31)
--- NOTE | 2017-12-26 09:49 | CT ---
Date of service: 12/25/2017 PROCEDURE: CT HEAD WITHOUT CONTRAST. HISTORY: headache COMPARISON: None available. TECHNIQUE: Axial computed tomography images were obtained through the head/brain without intravenous contrast. Examination is degraded by patient motion. Radiation dose: Total exam DLP = 1650.04 mGy-cm. This CT exam was performed using one or more of the following dose reduction techniques: Automated exposure control, adjustment of the mA and/or kV according to patient size, and/or use of iterative reconstruction technique. FINDINGS: HEMORRHAGE: No intracranial hemorrhage. BRAIN: Alfredo-white matter differentiation is preserved. There is no mass, mass effect or abnormal extra-axial fluid collection. There is no territorial infarction. The midline sagittal structures are normal. VENTRICLES: There is mild age advanced global parenchymal volume loss and proportionate enlargement of the ventricles and cortical sulci. CALVARIUM: There is no calvarial fracture. PARANASAL SINUSES: Predominantly clear. MASTOID AIR CELLS: Predominantly clear. OTHER FINDINGS: There is dislocation of the left lens which is identified in the dependent posterior chamber. There is mild anterior scar and periorbital edema. IMPRESSION: No acute intracranial abnormality. Mild anterior scalp and periorbital edema. A preliminary report was provided by [facility] services.
--- NOTE | 2017-12-26 09:51 | CT ---
Date of service: 12/25/2017 PROCEDURE: CT Chest, Abdomen and Pelvis without intravenous contrast HISTORY: sepsis COMPARISON: None available. TECHNIQUE: Radiation dose: Total exam DLP = 246 mGy-cm. This CT exam was performed using one or more of the following dose reduction techniques: Automated exposure control, adjustment of the mA and/or kV according to patient size, and/or use of iterative reconstruction technique. FINDINGS: CT CHEST WITHOUT CONTRAST: LUNGS: There is a left lower lobe infiltrate or atelectasis which is adjacent to several left-sided rib fractures. There is no pneumothorax MEDIASTINUM: Unremarkable. Normal caliber aorta and pulmonary arterial trunk. Normal size heart. LYMPH NODES: Unremarkable. PLEURA: Unremarkable. No pneumothorax. No pleural fluid. BONES: Unremarkable. OTHER FINDINGS: None. CT ABDOMEN AND PELVIS: Evaluation of the abdomen is severely limited in this case due to lack of intra-abdominal fat as well as edema of the mesenteric fat and ascites. There is no oral or IV contrast LIVER: Unremarkable. No gross lesion or ductal dilatation. GALLBLADDER AND BILE DUCTS: Unremarkable. PANCREAS: Unremarkable. No gross lesion or ductal dilatation. SPLEEN: Unremarkable. ADRENALS: Unremarkable. No mass. KIDNEYS AND URETERS: Unremarkable. No hydronephrosis. No solid mass. VASCULATURE: Unremarkable. No aortic aneurysm. BOWEL: Unremarkable. No obstruction. No gross mural thickening. APPENDIX: Not visualized PERITONEUM: Ascites mesenteric edema , anasarca LYMPH NODES: Unremarkable. No enlarged lymph nodes. BLADDER: Unremarkable. REPRODUCTIVE: Unremarkable. BONES: No acute fracture. OTHER FINDINGS: The report concurs with the preliminary [facility] report The case was reviewed with Dr. Rizo IMPRESSION: Evaluation of the abdomen is severely limited in this case due to lack of intra-abdominal fat as well as edema of the mesenteric fat and ascites. There is no oral or IV contrast Left-sided rib fractures with atelectasis or pneumonia in the left lower lobe No obstruction or free air
[2017-12-26 10:36] LABS: TROPONIN I 0.02 ng/mL
--- NOTE | 2017-12-26 10:50 | US ---
Date of service: 12/25/2017 HISTORY: elevated LFTs COMPARISON: CT from 12/25/2017 TECHNIQUE: Grayscale imaging was performed. FINDINGS: LIVER: Measures 10.1 cm. There is diffuse increased echogenicity of the liver parenchyma. No mass. No intrahepatic bile duct dilatation. GALLBLADDER: The gallbladder is distended. No gallstones, wall thickening or pericholecystic fluid. The sonographic Diaz's sign is negative. COMMON BILE DUCT: Measures 3.6 mm. No stones. No dilatation. PANCREAS: Unremarkable as visualized. No mass. No ductal dilatation. RIGHT KIDNEY: Measures 7.5cm. Small echogenic atrophic kidney. No calculus, mass, or hydronephrosis. LEFT KIDNEY: Measures 5.5cm. Small echogenic atrophic kidney. No calculus, mass, or hydronephrosis. SPLEEN: Normal in size and contour. No mass. AORTA: No aneurysmal dilatation. IVC: Unremarkable. OTHER FINDINGS: None. IMPRESSION: Atrophied liver. Diffuse increased echogenicity in the liver may reflect hepatic steatosis however parenchymal infectious/ inflammatory etiologies cannot be entirely excluded. Clinical and laboratory correlation is advised. Bilateral renal atrophy. A preliminary report was provided by [employer] services.
--- NOTE | 2017-12-26 11:00 | PCM.PROC ---
<America Hernández - Last Filed: 12/26/17 10:58> Procedures Attestation:: I certify that I have explained the specified Operation(s) or Procedure(s), risks, benefits and reasonable alternatives to the Patient and/or other person responsible. The opportunity was given to ask questions and all questions answered - Central Line Placement Right Internal Jugular Triple Lumen Catheter Aseptic technique was employed throughout the procedure: Hand Hygiene done prior to procedure, Full sterile barriers (mask, hair cover, sterile gown, sterile gloves), Full body sterile drape, Chloraprep Antiseptic: 30 second prep for IJ or SC sites CVP Time Out Performed: Yes Pt. Placed on Pulse Ox Monitor: Yes Central Line Prep: Chlorhexidine-Alcohol Combination Local Anesthesia Used: Lidocaine 1% Amount of Anesthesia Used (mls): 5 Ultrasound Used for Placement: Yes Central Line Lumen Inserted: triple Central Line Length: 16 cm Post Procedure: Sutured in Place, Good Blood Return, All Ports Aspirated, Flushed, Capped, Sterile Dressing Applied Secured by: Suture Post procedure dressing: Gauze Post Procedure X-Ray: Yes Patient Tolerated Procedure: Well, No Complications Immediate Complications: None <Quinton Ruffin - Last Filed: 12/26/17 17:51> Addendum Addendum: 12/26/17 17:51 ICU Attending: I was present for the entire procedure. Agree with above. Quinton Ruffin MD [employer]
[2017-12-26] MEDS ORDERED: levETIRAcetam 1,000 MG in Sodium Chloride 0.9% 100 ML IV ONE (11:26)
--- NOTE | 2017-12-26 11:58 | RAD ---
Date of service: 12/26/2017 HISTORY: central line placement COMPARISON: No prior. FINDINGS: LUNGS: No active pulmonary disease. PLEURA: No significant pleural effusion identified, no pneumothorax apparent. CARDIOVASCULAR: Normal. OSSEOUS STRUCTURES: No significant abnormalities. VISUALIZED UPPER ABDOMEN: Normal. OTHER FINDINGS: There is a right internal jugular line that terminates in the right atrium. No pneumothorax IMPRESSION: As above
--- NOTE | 2017-12-26 12:00 | CT ---
Date of service: 12/26/2017 PROCEDURE: CT HEAD WITHOUT CONTRAST. HISTORY: pupils non reactive COMPARISON: Noncontrast head CT 12/25/2017. TECHNIQUE: Axial computed tomography images were obtained through the head/brain without intravenous contrast. Radiation dose: Total exam DLP = 788.41 mGy-cm. This CT exam was performed using one or more of the following dose reduction techniques: Automated exposure control, adjustment of the mA and/or kV according to patient size, and/or use of iterative reconstruction technique. FINDINGS: HEMORRHAGE: No intracranial hemorrhage. BRAIN: Normal contreras-white matter differentiation and density are appreciated throughout the cerebrum and cerebellum with the brainstem appearing unremarkable as well. There is no mass effect. There is no suspicious extra-axial fluid collection and the midline brain anatomy appears diffusely unremarkable. VENTRICLES: Unremarkable. No hydrocephalus. CALVARIUM: No destructive bony lesion or displaced fracture identified including through the skullbase. PARANASAL SINUSES: Unremarkable as visualized. No significant inflammatory changes. MASTOID AIR CELLS: Unremarkable as visualized. No inflammatory changes. OTHER FINDINGS: Limited left greater right periorbital and bilateral frontal scattered soft tissue edema changes. IMPRESSION: Unremarkable noncontrast head CT as discussed above. No significant interval change. Given clinical history, consider follow-up brain MRI if there is no contraindication. Limited left greater right periorbital and bilateral frontal scattered soft tissue edema changes.
[2017-12-26 12:22] LABS: PROLACTIN 29.2 ng/mL (3.0-18.9)
[2017-12-26] MEDS ORDERED: Dextrose 50% SYRINGE Inj (50 ml) IVP STA (12:44)
[2017-12-26 12:45] LABS: HEPATITIS A IGM NEGATIVE (NEGATIVE); HEPATITIS B CORE AB NEGATIVE (NEGATIVE)
[2017-12-26] MEDS ORDERED: Dextrose 50% SYRINGE Inj (50 ml) ONE (12:45)
--- NOTE | 2017-12-26 12:50 | RAD ---
Date of service: 12/26/2017 PROCEDURE: Bilateral ribs HISTORY: rib fracture COMPARISON: CT of the chest abdomen and pelvis 12/25/2017 TECHNIQUE: Three views FINDINGS: Two separate fractures are seen in the left 7th rib. There appears to be callus formation around the more proximal rib consistent with a previous injury. There is also a probable nondisplaced rib fracture of the 8th rib laterally There is an infiltrate at the left lung base that obscures the diaphragm. There is no pneumothorax IMPRESSION: Fractures in the left 7th and 8th ribs
[2017-12-26 12:59] LABS: HEPATITIS C ANTIBODY NEGATIVE (NEGATIVE)
[2017-12-26 13:07] LABS: HEPATITIS B SURFACE AG Negative (NEGATIVE)
--- NOTE | 2017-12-26 13:15 | CP.CCUPN ---
<America Hernández - Last Filed: 12/26/17 13:16> CCU Subjective - Physician Review Events Since Last Encounter (Free Text): Aimeehunter Edgar, PGY-1 ICU Progress Note Patient seen and examined at bedside this morning. Currently on elton hugger with Tmin of 89.2 overnight with most recent temperature of 97.2. Continues to be bradycardic in the 40s. Patient is altered and is poor historian at this time. Per mother, patient slept well and has no complaints. ROS limited due to patient status. CCU Objective - Vital Signs / Intake & Output Intake and Output (Last 8hrs): Intake & Output 12/25/17 12/26/17 12/26/17 22:59 06:59 14:59 Intake Total 3534 Output Total 725 Balance 2809 Weight 60 lb Intake: IV 3534 Left Antecubital 3397 Right Forearm 106 Output: Urine 725 Urethral (Jimenez) 725 Other: Voiding Method Incontinent # Bowel Movements 0 - Physical Exam Head: Positive for: Normocephalic, Other (right orbital swelling) Pupils: Positive for: PERRL, Sluggish Conjunctiva: Positive for: Normal Mouth: Positive for: Moist Mucous Membranes Neck: Positive for: Normal Range of Motion Respiratory/Chest: Positive for: Clear to Auscultation, Good Air Exchange. Negative for: Respiratory Distress, Accessory Muscle Use, Wheezes Cardiovascular: Positive for: Normal S1, S2. Negative for: Murmurs Abdomen: Positive for: Other (cachectic ). Negative for: Tenderness, Distention , Peritoneal Signs, Rebound, Guarding, McBurney's Point Tender, Rovsing's Sign Present, Hernias Back: Positive for: Normal Inspection Upper Extremity: Positive for: Normal Inspection. Negative for: Cyanosis, Edema Lower Extremity: Positive for: Normal Inspection. Negative for: Edema Neurological: Positive for: Other (altered mental status) Skin: Positive for: Warm, Dry, Normal Color. Negative for: Rashes Psychiatric: Positive for: Other (altered) - Medications Active Medications: Active Medications Generic Name Dose Route Start Last Admin Trade Name Freq PRN Reason Stop Dose Admin Heparin Sodium (Porcine) 5,000 units 12/26/17 10:00 Heparin SC Q12 [facility] Protocol Norepinephrine Bitartrate 8 mg 508 mls @ 15.24 mls/hr 12/25/17 20:06 01:30 / Sodium Chloride IV 4 mcg/min .Q24H PRN 15.24 mls/hr TITRATE PER MD ORDER Titration Protocol 4 MCG/MIN Piperacillin Sod/Tazobactam Sod 100 mls @ 200 mls/hr 12/25/17 20:32 12/26/17 06:42 Zosyn 3.375 In Ns 100ml IVPB 01/01/18 20:33 200 mls/hr Q6 NASH Administration Protocol Sodium Chloride 1,000 mls @ 125 mls/hr 12/26/17 02:45 12/26/17 06:00 Sodium Chloride 0.9% IV 125 mls/hr .Q8H [facility]H Administration Vancomycin HCl 1 gm in 250 mls @ 167 mls/hr 12/26/17 10:00 12/26/17 10:46 Vancomycin 1gm IVPB Not Given Q12 [facility] Protocol Pantoprazole Sodium 40 mg 12/26/17 10:00 12/26/17 09:18 Protonix Inj IVP 40 mg DAILY NASH Administration - Patient Studies Lab Studies: Lab Studies 12/26/17 12/26/17 12/26/17 Range/Units 09:35 09:10 09:10 WBC (4.5-11.0) 10^3/ul RBC (3.5-6.1) 10^6/uL Hgb (12.0-16.0) g/dL Hct (36.0-48.0) % MCV (80.0-105.0) fl MCH (25.0-35.0) pg MCHC (31.0-37.0) g/dl RDW (11.5-14.5) % Plt Count (120.0-450.0) 10^3/uL MPV (7.0-11.0) fl Gran % (50.0-68.0) % Lymph % (Auto) (22.0-35.0) % Bond % (Auto) (1.0-6.0) % Eos % (Auto) (1.5-5.0) % Baso % (Auto) (0.0-3.0) % Gran # (1.4-6.5) Lymph # (Auto) (1.2-3.4) Bond # (Auto) (0.1-0.6) Eos # (Auto) (0.0-0.7) Baso # (Auto) (0.0-2.0) K/mm3 PT 19.6 H (9.4-12.5) SECONDS INR 1.69 pCO2 (35-45) mm/Hg pO2 (80-100) mm/Hg HCO3 (21-28) mmol/L ABG pH (7.35-7.45) ABG Total CO2 (22-28) mmol.L ABG O2 Saturation (95-98) % ABG O2 Content (15-23) ML/dl ABG Base Excess (-2.0-3.0) mmol/L ABG Hemoglobin (11.7-17.4) g/dL ABG Carboxyhemoglobin (0.5-1.5) % POC ABG HHb (Measured) (0-5) % ABG Methemoglobin (0.0-3.0) % ABG O2 Capacity (16-24) mL/dl Hgb O2 Saturation (95.0-98.0) % FiO2 % Sodium (132-148) mmol/L Potassium (3.6-5.0) mmol/L Chloride (98-107) mmol/L Carbon Dioxide (21-33) mmol/L Anion Gap (10-20) BUN (7-21) mg/dL Creatinine (0.7-1.2) mg/dl Est GFR ( Amer) Est GFR (Non-Af Amer) POC Glucose (mg/dL) (65-110) mg/dL Random Glucose (70-110) mg/dL Calcium (8.4-10.5) mg/dL Phosphorus (2.5-4.5) mg/dL Magnesium (1.7-2.2) mg/dL Total Bilirubin (0.2-1.3) mg/dL AST (14-36) U/L ALT (7-56) U/L Alkaline Phosphatase (38-126) U/L Ammonia (9-33) umol/L Troponin I 0.02 D ng/mL Total Protein (5.8-8.3) g/dL Albumin (3.0-4.8) g/dL Globulin gm/dL Albumin/Globulin Ratio (1.1-1.8) Amylase (35-125) U/L Lipase (23-300) U/L Procalcitonin (0.19-0.49) NG/ML TSH 3rd Generation 2.98 (0.46-4.68) mIU/mL Prolactin (3.0-18.9) ng/mL Urine Color (YELLOW) Urine Appearance (CLEAR) Urine pH (4.7-8.0) Ur Specific Clayton (1.005-1.035) Urine Protein (<30 mg/dL) mg/dL Urine Glucose (UA) (NEGATIVE) mg/dL Urine Ketones (NEGATIVE) mg/dL Urine Blood (NEGATIVE) Urine Nitrate (NEGATIVE) Urine Bilirubin (NEGATIVE) Urine Urobilinogen (<1 E.U./dL) E.U./dL Ur Leukocyte Esterase (NEGATIVE) Alverto/uL Urine Opiates Screen (NEGATIVE) Urine Methadone Screen (NEGATIVE) Ur Barbiturates Screen (NEGATIVE) Ur Phencyclidine Scrn (NEGATIVE) Ur Amphetamines Screen (NEGATIVE) U Benzodiazepines Scrn (NEGATIVE) U Oth Cocaine Metabols (NEGATIVE) U Cannabinoids Screen (NEGATIVE) Hepatitis A IgM Ab (NEGATIVE) Hep Bs Antigen (NEGATIVE) Hep B Core IgM Ab (NEGATIVE) Hepatitis C Antibody (NEGATIVE) Blood Type Blood Type Confirm Antibody Screen Crossmatch BBK History Checked 12/26/17 12/26/17 12/26/17 Range/Units 08:06 05:30 05:30 WBC (4.5-11.0) 10^3/ul RBC (3.5-6.1) 10^6/uL Hgb (12.0-16.0) g/dL Hct (36.0-48.0) % MCV (80.0-105.0) fl MCH (25.0-35.0) pg MCHC (31.0-37.0) g/dl RDW (11.5-14.5) % Plt Count (120.0-450.0) 10^3/uL MPV (7.0-11.0) fl Gran % (50.0-68.0) % Lymph % (Auto) (22.0-35.0) % Bond % (Auto) (1.0-6.0) % Eos % (Auto) (1.5-5.0) % Baso % (Auto) (0.0-3.0) % Gran # (1.4-6.5) Lymph # (Auto) (1.2-3.4) Bond # (Auto) (0.1-0.6) Eos # (Auto) (0.0-0.7) Baso # (Auto) (0.0-2.0) K/mm3 PT (9.4-12.5) SECONDS INR pCO2 (35-45) mm/Hg pO2 (80-100) mm/Hg HCO3 (21-28) mmol/L ABG pH (7.35-7.45) ABG Total CO2 (22-28) mmol.L ABG O2 Saturation (95-98) % ABG O2 Content (15-23) ML/dl ABG Base Excess (-2.0-3.0) mmol/L ABG Hemoglobin (11.7-17.4) g/dL ABG Carboxyhemoglobin (0.5-1.5) % POC ABG HHb (Measured) (0-5) % ABG Methemoglobin (0.0-3.0) % ABG O2 Capacity (16-24) mL/dl Hgb O2 Saturation (95.0-98.0) % FiO2 % Sodium (132-148) mmol/L Potassium (3.6-5.0) mmol/L Chloride (98-107) mmol/L Carbon Dioxide (21-33) mmol/L Anion Gap (10-20) BUN (7-21) mg/dL Creatinine (0.7-1.2) mg/dl Est GFR ( Amer) Est GFR (Non-Af Amer) POC Glucose (mg/dL) 126 H (65-110) mg/dL Random Glucose (70-110) mg/dL Calcium (8.4-10.5) mg/dL Phosphorus (2.5-4.5) mg/dL Magnesium (1.7-2.2) mg/dL Total Bilirubin (0.2-1.3) mg/dL AST (14-36) U/L ALT (7-56) U/L Alkaline Phosphatase (38-126) U/L Ammonia (9-33) umol/L Troponin I ng/mL Total Protein (5.8-8.3) g/dL Albumin (3.0-4.8) g/dL Globulin gm/dL Albumin/Globulin Ratio (1.1-1.8) Amylase (35-125) U/L Lipase (23-300) U/L Procalcitonin 0.99 H (0.19-0.49) NG/ML TSH 3rd Generation (0.46-4.68) mIU/mL Prolactin (3.0-18.9) ng/mL Urine Color (YELLOW) Urine Appearance (CLEAR) Urine pH (4.7-8.0) Ur Specific Clayton (1.005-1.035) Urine Protein (<30 mg/dL) mg/dL Urine Glucose (UA) (NEGATIVE) mg/dL Urine Ketones (NEGATIVE) mg/dL Urine Blood (NEGATIVE) Urine Nitrate (NEGATIVE) Urine Bilirubin (NEGATIVE) Urine Urobilinogen (<1 E.U./dL) E.U./dL Ur Leukocyte Esterase (NEGATIVE) Alverto/uL Urine Opiates Screen (NEGATIVE) Urine Methadone Screen (NEGATIVE) Ur Barbiturates Screen (NEGATIVE) Ur Phencyclidine Scrn (NEGATIVE) Ur Amphetamines Screen (NEGATIVE) U Benzodiazepines Scrn (NEGATIVE) U Oth Cocaine Metabols (NEGATIVE) U Cannabinoids Screen (NEGATIVE) Hepatitis A IgM Ab Negative (NEGATIVE) Hep Bs Antigen Negative (NEGATIVE) Hep B Core IgM Ab Negative (NEGATIVE) Hepatitis C Antibody Negative (NEGATIVE) Blood Type Blood Type Confirm Antibody Screen Crossmatch BBK History Checked 12/26/17 12/26/17 12/26/17 Range/Units 05:30 05:30 03:24 WBC 8.3 (4.5-11.0) 10^3/ul RBC 2.84 L (3.5-6.1) 10^6/uL Hgb 7.3 L (12.0-16.0) g/dL Hct 22.0 L (36.0-48.0) % MCV 77.5 L (80.0-105.0) fl MCH 25.7 (25.0-35.0) pg MCHC 33.2 (31.0-37.0) g/dl RDW 16.0 H (11.5-14.5) % Plt Count 116 L (120.0-450.0) 10^3/uL MPV 10.7 (7.0-11.0) fl Gran % 89.1 H (50.0-68.0) % Lymph % (Auto) 9.1 L (22.0-35.0) % Bond % (Auto) 1.8 (1.0-6.0) % Eos % (Auto) 0.0 L (1.5-5.0) % Baso % (Auto) 0.0 (0.0-3.0) % Gran # 7.40 H (1.4-6.5) Lymph # (Auto) 0.8 L (1.2-3.4) Bond # (Auto) 0.2 (0.1-0.6) Eos # (Auto) 0.0 (0.0-0.7) Baso # (Auto) 0.00 (0.0-2.0) K/mm3 PT (9.4-12.5) SECONDS INR pCO2 (35-45) mm/Hg pO2 (80-100) mm/Hg HCO3 (21-28) mmol/L ABG pH (7.35-7.45) ABG Total CO2 (22-28) mmol.L ABG O2 Saturation (95-98) % ABG O2 Content (15-23) ML/dl ABG Base Excess (-2.0-3.0) mmol/L ABG Hemoglobin (11.7-17.4) g/dL ABG Carboxyhemoglobin (0.5-1.5) % POC ABG HHb (Measured) (0-5) % ABG Methemoglobin (0.0-3.0) % ABG O2 Capacity (16-24) mL/dl Hgb O2 Saturation (95.0-98.0) % FiO2 % Sodium 148 (132-148) mmol/L Potassium 3.3 L (3.6-5.0) mmol/L Chloride 117 H (98-107) mmol/L Carbon Dioxide 22 (21-33) mmol/L Anion Gap 12 (10-20) BUN 31 H (7-21) mg/dL Creatinine 0.8 (0.7-1.2) mg/dl Est GFR ( Amer) > 60 Est GFR (Non-Af Amer) > 60 POC Glucose (mg/dL) (65-110) mg/dL Random Glucose 126 H (70-110) mg/dL Calcium 6.4 L* (8.4-10.5) mg/dL Phosphorus 2.9 (2.5-4.5) mg/dL Magnesium 1.5 L (1.7-2.2) mg/dL Total Bilirubin 0.7 (0.2-1.3) mg/dL AST > 750 H D (14-36) U/L ALT 788 H (7-56) U/L Alkaline Phosphatase 707 H D (38-126) U/L Ammonia (9-33) umol/L Troponin I < 0.01 ng/mL Total Protein 4.7 L (5.8-8.3) g/dL Albumin 2.1 L (3.0-4.8) g/dL Globulin 2.6 gm/dL Albumin/Globulin Ratio 0.8 L (1.1-1.8) Amylase (35-125) U/L Lipase (23-300) U/L Procalcitonin (0.19-0.49) NG/ML TSH 3rd Generation (0.46-4.68) mIU/mL Prolactin (3.0-18.9) ng/mL Urine Color (YELLOW) Urine Appearance (CLEAR) Urine pH (4.7-8.0) Ur Specific Clayton (1.005-1.035) Urine Protein (<30 mg/dL) mg/dL Urine Glucose (UA) (NEGATIVE) mg/dL Urine Ketones (NEGATIVE) mg/dL Urine Blood (NEGATIVE) Urine Nitrate (NEGATIVE) Urine Bilirubin (NEGATIVE) Urine Urobilinogen (<1 E.U./dL) E.U./dL Ur Leukocyte Esterase (NEGATIVE) Alverto/uL Urine Opiates Screen (NEGATIVE) Urine Methadone Screen (NEGATIVE) Ur Barbiturates Screen (NEGATIVE) Ur Phencyclidine Scrn (NEGATIVE) Ur Amphetamines Screen (NEGATIVE) U Benzodiazepines Scrn (NEGATIVE) U Oth Cocaine Metabols (NEGATIVE) U Cannabinoids Screen (NEGATIVE) Hepatitis A IgM Ab (NEGATIVE) Hep Bs Antigen (NEGATIVE) Hep B Core IgM Ab (NEGATIVE) Hepatitis C Antibody (NEGATIVE) Blood Type Blood Type Confirm A NEGATIVE Antibody Screen Crossmatch BBK History Checked 12/26/17 12/25/17 12/25/17 Range/Units 03:00 23:09 21:49 WBC (4.5-11.0) 10^3/ul RBC (3.5-6.1) 10^6/uL Hgb (12.0-16.0) g/dL Hct (36.0-48.0) % MCV (80.0-105.0) fl MCH (25.0-35.0) pg MCHC (31.0-37.0) g/dl RDW (11.5-14.5) % Plt Count (120.0-450.0) 10^3/uL MPV (7.0-11.0) fl Gran % (50.0-68.0) % Lymph % (Auto) (22.0-35.0) % Bond % (Auto) (1.0-6.0) % Eos % (Auto) (1.5-5.0) % Baso % (Auto) (0.0-3.0) % Gran # (1.4-6.5) Lymph # (Auto) (1.2-3.4) Bond # (Auto) (0.1-0.6) Eos # (Auto) (0.0-0.7) Baso # (Auto) (0.0-2.0) K/mm3 PT (9.4-12.5) SECONDS INR pCO2 (35-45) mm/Hg pO2 (80-100) mm/Hg HCO3 (21-28) mmol/L ABG pH (7.35-7.45) ABG Total CO2 (22-28) mmol.L ABG O2 Saturation (95-98) % ABG O2 Content (15-23) ML/dl ABG Base Excess (-2.0-3.0) mmol/L ABG Hemoglobin (11.7-17.4) g/dL ABG Carboxyhemoglobin (0.5-1.5) % POC ABG HHb (Measured) (0-5) % ABG Methemoglobin (0.0-3.0) % ABG O2 Capacity (16-24) mL/dl Hgb O2 Saturation (95.0-98.0) % FiO2 % Sodium (132-148) mmol/L Potassium (3.6-5.0) mmol/L Chloride (98-107) mmol/L Carbon Dioxide (21-33) mmol/L Anion Gap (10-20) BUN (7-21) mg/dL Creatinine (0.7-1.2) mg/dl Est GFR ( Amer) Est GFR (Non-Af Amer) POC Glucose (mg/dL) 269 H (65-110) mg/dL Random Glucose (70-110) mg/dL Calcium (8.4-10.5) mg/dL Phosphorus (2.5-4.5) mg/dL Magnesium (1.7-2.2) mg/dL Total Bilirubin (0.2-1.3) mg/dL AST (14-36) U/L ALT (7-56) U/L Alkaline Phosphatase (38-126) U/L Ammonia (9-33) umol/L Troponin I ng/mL Total Protein (5.8-8.3) g/dL Albumin (3.0-4.8) g/dL Globulin gm/dL Albumin/Globulin Ratio (1.1-1.8) Amylase (35-125) U/L Lipase (23-300) U/L Procalcitonin (0.19-0.49) NG/ML TSH 3rd Generation (0.46-4.68) mIU/mL Prolactin (3.0-18.9) ng/mL Urine Color (YELLOW) Urine Appearance (CLEAR) Urine pH (4.7-8.0) Ur Specific Clayton (1.005-1.035) Urine Protein (<30 mg/dL) mg/dL Urine Glucose (UA) (NEGATIVE) mg/dL Urine Ketones (NEGATIVE) mg/dL Urine Blood (NEGATIVE) Urine Nitrate (NEGATIVE) Urine Bilirubin (NEGATIVE) Urine Urobilinogen (<1 E.U./dL) E.U./dL Ur Leukocyte Esterase (NEGATIVE) Alverto/uL Urine Opiates Screen Negative (NEGATIVE) Urine Methadone Screen Negative (NEGATIVE) Ur Barbiturates Screen Negative (NEGATIVE) Ur Phencyclidine Scrn Negative (NEGATIVE) Ur Amphetamines Screen Negative (NEGATIVE) U Benzodiazepines Scrn Negative (NEGATIVE) U Oth Cocaine Metabols Negative (NEGATIVE) U Cannabinoids Screen Negative (NEGATIVE) Hepatitis A IgM Ab (NEGATIVE) Hep Bs Antigen (NEGATIVE) Hep B Core IgM Ab (NEGATIVE) Hepatitis C Antibody (NEGATIVE) Blood Type A NEGATIVE Blood Type Confirm Antibody Screen Negative Crossmatch See Detail BBK History Checked No verified bt 12/25/17 12/25/17 12/25/17 Range/Units 21:30 21:30 21:30 WBC (4.5-11.0) 10^3/ul RBC (3.5-6.1) 10^6/uL Hgb (12.0-16.0) g/dL Hct (36.0-48.0) % MCV (80.0-105.0) fl MCH (25.0-35.0) pg MCHC (31.0-37.0) g/dl RDW (11.5-14.5) % Plt Count (120.0-450.0) 10^3/uL MPV (7.0-11.0) fl Gran % (50.0-68.0) % Lymph % (Auto) (22.0-35.0) % Bond % (Auto) (1.0-6.0) % Eos % (Auto) (1.5-5.0) % Baso % (Auto) (0.0-3.0) % Gran # (1.4-6.5) Lymph # (Auto) (1.2-3.4) Bond # (Auto) (0.1-0.6) Eos # (Auto) (0.0-0.7) Baso # (Auto) (0.0-2.0) K/mm3 PT (9.4-12.5) SECONDS INR pCO2 (35-45) mm/Hg pO2 (80-100) mm/Hg HCO3 (21-28) mmol/L ABG pH (7.35-7.45) ABG Total CO2 (22-28) mmol.L ABG O2 Saturation (95-98) % ABG O2 Content (15-23) ML/dl ABG Base Excess (-2.0-3.0) mmol/L ABG Hemoglobin (11.7-17.4) g/dL ABG Carboxyhemoglobin (0.5-1.5) % POC ABG HHb (Measured) (0-5) % ABG Methemoglobin (0.0-3.0) % ABG O2 Capacity (16-24) mL/dl Hgb O2 Saturation (95.0-98.0) % FiO2 % Sodium (132-148) mmol/L Potassium (3.6-5.0) mmol/L Chloride (98-107) mmol/L Carbon Dioxide (21-33) mmol/L Anion Gap (10-20) BUN (7-21) mg/dL Creatinine (0.7-1.2) mg/dl Est GFR ( Amer) Est GFR (Non-Af Amer) POC Glucose (mg/dL) (65-110) mg/dL Random Glucose (70-110) mg/dL Calcium (8.4-10.5) mg/dL Phosphorus 3.1 (2.5-4.5) mg/dL Magnesium 1.7 (1.7-2.2) mg/dL Total Bilirubin (0.2-1.3) mg/dL AST (14-36) U/L ALT (7-56) U/L Alkaline Phosphatase (38-126) U/L Ammonia 37 H (9-33) umol/L Troponin I < 0.01 ng/mL Total Protein (5.8-8.3) g/dL Albumin (3.0-4.8) g/dL Globulin gm/dL Albumin/Globulin Ratio (1.1-1.8) Amylase 367 H (35-125) U/L Lipase 549 H (23-300) U/L Procalcitonin (0.19-0.49) NG/ML TSH 3rd Generation (0.46-4.68) mIU/mL Prolactin 29.2 H (3.0-18.9) ng/mL Urine Color (YELLOW) Urine Appearance (CLEAR) Urine pH (4.7-8.0) Ur Specific Clayton (1.005-1.035) Urine Protein (<30 mg/dL) mg/dL Urine Glucose (UA) (NEGATIVE) mg/dL Urine Ketones (NEGATIVE) mg/dL Urine Blood (NEGATIVE) Urine Nitrate (NEGATIVE) Urine Bilirubin (NEGATIVE) Urine Urobilinogen (<1 E.U./dL) E.U./dL Ur Leukocyte Esterase (NEGATIVE) Alverto/uL Urine Opiates Screen (NEGATIVE) Urine Methadone Screen (NEGATIVE) Ur Barbiturates Screen (NEGATIVE) Ur Phencyclidine Scrn (NEGATIVE) Ur Amphetamines Screen (NEGATIVE) U Benzodiazepines Scrn (NEGATIVE) U Oth Cocaine Metabols (NEGATIVE) U Cannabinoids Screen (NEGATIVE) Hepatitis A IgM Ab (NEGATIVE) Hep Bs Antigen (NEGATIVE) Hep B Core IgM Ab (NEGATIVE) Hepatitis C Antibody (NEGATIVE) Blood Type Blood Type Confirm Antibody Screen Crossmatch BBK History Checked 12/25/17 12/25/17 12/25/17 Range/Units 20:19 20:03 19:34 WBC (4.5-11.0) 10^3/ul RBC (3.5-6.1) 10^6/uL Hgb (12.0-16.0) g/dL Hct (36.0-48.0) % MCV (80.0-105.0) fl MCH (25.0-35.0) pg MCHC (31.0-37.0) g/dl RDW (11.5-14.5) % Plt Count (120.0-450.0) 10^3/uL MPV (7.0-11.0) fl Gran % (50.0-68.0) % Lymph % (Auto) (22.0-35.0) % Bond % (Auto) (1.0-6.0) % Eos % (Auto) (1.5-5.0) % Baso % (Auto) (0.0-3.0) % Gran # (1.4-6.5) Lymph # (Auto) (1.2-3.4) Bond # (Auto) (0.1-0.6) Eos # (Auto) (0.0-0.7) Baso # (Auto) (0.0-2.0) K/mm3 PT (9.4-12.5) SECONDS INR pCO2 41 (35-45) mm/Hg pO2 110.0 H (80-100) mm/Hg HCO3 21.6 (21-28) mmol/L ABG pH 7.33 L (7.35-7.45) ABG Total CO2 22.9 (22-28) mmol.L ABG O2 Saturation 99.6 H (95-98) % ABG O2 Content 10.9 L (15-23) ML/dl ABG Base Excess -4.0 L (-2.0-3.0) mmol/L ABG Hemoglobin 7.8 L (11.7-17.4) g/dL ABG Carboxyhemoglobin 1.4 (0.5-1.5) % POC ABG HHb (Measured) 0.4 (0-5) % ABG Methemoglobin 0.7 (0.0-3.0) % ABG O2 Capacity 10.9 L (16-24) mL/dl Hgb O2 Saturation 97.4 (95.0-98.0) % FiO2 21.0 % Sodium (132-148) mmol/L Potassium (3.6-5.0) mmol/L Chloride (98-107) mmol/L Carbon Dioxide (21-33) mmol/L Anion Gap (10-20) BUN (7-21) mg/dL Creatinine (0.7-1.2) mg/dl Est GFR ( Amer) Est GFR (Non-Af Amer) POC Glucose (mg/dL) 284 H (65-110) mg/dL Random Glucose (70-110) mg/dL Calcium (8.4-10.5) mg/dL Phosphorus (2.5-4.5) mg/dL Magnesium (1.7-2.2) mg/dL Total Bilirubin (0.2-1.3) mg/dL AST (14-36) U/L ALT (7-56) U/L Alkaline Phosphatase (38-126) U/L Ammonia (9-33) umol/L Troponin I ng/mL Total Protein (5.8-8.3) g/dL Albumin (3.0-4.8) g/dL Globulin gm/dL Albumin/Globulin Ratio (1.1-1.8) Amylase (35-125) U/L Lipase (23-300) U/L Procalcitonin (0.19-0.49) NG/ML TSH 3rd Generation (0.46-4.68) mIU/mL Prolactin (3.0-18.9) ng/mL Urine Color Light yellow (YELLOW) Urine Appearance Clear (CLEAR) Urine pH 6.0 (4.7-8.0) Ur Specific Clayton 1.010 (1.005-1.035) Urine Protein Negative (<30 mg/dL) mg/dL Urine Glucose (UA) Negative (NEGATIVE) mg/dL Urine Ketones Negative (NEGATIVE) mg/dL Urine Blood Negative (NEGATIVE) Urine Nitrate Negative (NEGATIVE) Urine Bilirubin Negative (NEGATIVE) Urine Urobilinogen 0.2 (<1 E.U./dL) E.U./dL Ur Leukocyte Esterase Negative (NEGATIVE) Alverto/uL Urine Opiates Screen (NEGATIVE) Urine Methadone Screen (NEGATIVE) Ur Barbiturates Screen (NEGATIVE) Ur Phencyclidine Scrn (NEGATIVE) Ur Amphetamines Screen (NEGATIVE) U Benzodiazepines Scrn (NEGATIVE) U Oth Cocaine Metabols (NEGATIVE) U Cannabinoids Screen (NEGATIVE) Hepatitis A IgM Ab (NEGATIVE) Hep Bs Antigen (NEGATIVE) Hep B Core IgM Ab (NEGATIVE) Hepatitis C Antibody (NEGATIVE) Blood Type Blood Type Confirm Antibody Screen Crossmatch BBK History Checked Laboratory Results - last 24 hr 12/25/17 12/25/17 12/25/17 19:34 20:03 20:19 WBC RBC Hgb Hct MCV MCH MCHC RDW Plt Count MPV Gran % Lymph % (Auto) Bond % (Auto) Eos % (Auto) Baso % (Auto) Gran # Lymph # (Auto) Bond # (Auto) Eos # (Auto) Baso # (Auto) PT INR pCO2 41 pO2 110.0 H HCO3 21.6 ABG pH 7.33 L ABG Total CO2 22.9 ABG O2 Saturation 99.6 H ABG O2 Content 10.9 L ABG Base Excess -4.0 L ABG Hemoglobin 7.8 L ABG Carboxyhemoglobin 1.4 POC ABG HHb (Measured) 0.4 ABG Methemoglobin 0.7 ABG O2 Capacity 10.9 L Hgb O2 Saturation 97.4 FiO2 21.0 Sodium Potassium Chloride Carbon Dioxide Anion Gap BUN Creatinine Est GFR ( Amer) Est GFR (Non-Af Amer) POC Glucose (mg/dL) 284 H Random Glucose Calcium Phosphorus Magnesium Total Bilirubin AST ALT Alkaline Phosphatase Ammonia Troponin I Total Protein Albumin Globulin Albumin/Globulin Ratio Amylase Lipase Procalcitonin TSH 3rd Generation Prolactin Urine Color Light yellow Urine Appearance Clear Urine pH 6.0 Ur Specific [place] 1.010 Urine Protein Negative Urine Glucose (UA) Negative Urine Ketones Negative Urine Blood Negative Urine Nitrate Negative Urine Bilirubin Negative Urine Urobilinogen 0.2 Ur Leukocyte Esterase Negative Urine Opiates Screen Urine Methadone Screen Ur Barbiturates Screen Ur Phencyclidine Scrn Ur Amphetamines Screen U Benzodiazepines Scrn U Oth Cocaine Metabols U Cannabinoids Screen Hepatitis A IgM Ab Hep Bs Antigen Hep B Core IgM Ab Hepatitis C Antibody Blood Type Blood Type Confirm Antibody Screen Crossmatch BBK History Checked 08/12/25/17 12/25/17 21:30 21:30 21:30 WBC RBC Hgb Hct MCV MCH MCHC RDW Plt Count MPV Gran % Lymph % (Auto) Bond % (Auto) Eos % (Auto) Baso % (Auto) Gran # Lymph # (Auto) Bond # (Auto) Eos # (Auto) Baso # (Auto) PT INR pCO2 pO2 HCO3 ABG pH ABG Total CO2 ABG O2 Saturation ABG O2 Content ABG Base Excess ABG Hemoglobin ABG Carboxyhemoglobin POC ABG HHb (Measured) ABG Methemoglobin ABG O2 Capacity Hgb O2 Saturation FiO2 Sodium Potassium Chloride Carbon Dioxide Anion Gap BUN Creatinine Est GFR ( Amer) Est GFR (Non-Af Amer) POC Glucose (mg/dL) Random Glucose Calcium Phosphorus 3.1 Magnesium 1.7 Total Bilirubin AST ALT Alkaline Phosphatase Ammonia 37 H Troponin I < 0.01 Total Protein Albumin Globulin Albumin/Globulin Ratio Amylase 367 H Lipase 549 H Procalcitonin TSH 3rd Generation Prolactin 29.2 H Urine Color Urine Appearance Urine pH Ur Specific [place] Urine Protein Urine Glucose (UA) Urine Ketones Urine Blood Urine Nitrate Urine Bilirubin Urine Urobilinogen Ur Leukocyte Esterase Urine Opiates Screen Urine Methadone Screen Ur Barbiturates Screen Ur Phencyclidine Scrn Ur Amphetamines Screen U Benzodiazepines Scrn U Oth Cocaine Metabols U Cannabinoids Screen Hepatitis A IgM Ab Hep Bs Antigen Hep B Core IgM Ab Hepatitis C Antibody Blood Type Blood Type Confirm Antibody Screen Crossmatch BBK History Checked 12/25/17 12/25/17 12/26/17 21:49 23:09 03:00 WBC RBC Hgb Hct MCV MCH MCHC RDW Plt Count MPV Gran % Lymph % (Auto) Bond % (Auto) Eos % (Auto) Baso % (Auto) Gran # Lymph # (Auto) Bond # (Auto) Eos # (Auto) Baso # (Auto) PT INR pCO2 pO2 HCO3 ABG pH ABG Total CO2 ABG O2 Saturation ABG O2 Content ABG Base Excess ABG Hemoglobin ABG Carboxyhemoglobin POC ABG HHb (Measured) ABG Methemoglobin ABG O2 Capacity Hgb O2 Saturation FiO2 Sodium Potassium Chloride Carbon Dioxide Anion Gap BUN Creatinine Est GFR ( Amer) Est GFR (Non-Af Amer) POC Glucose (mg/dL) 269 H Random Glucose Calcium Phosphorus Magnesium Total Bilirubin AST ALT Alkaline Phosphatase Ammonia Troponin I Total Protein Albumin Globulin Albumin/Globulin Ratio Amylase Lipase Procalcitonin TSH 3rd Generation Prolactin Urine Color Urine Appearance Urine pH Ur Specific [place] Urine Protein Urine Glucose (UA) Urine Ketones Urine Blood Urine Nitrate Urine Bilirubin Urine Urobilinogen Ur Leukocyte Esterase Urine Opiates Screen Negative Urine Methadone Screen Negative Ur Barbiturates Screen Negative Ur Phencyclidine Scrn Negative Ur Amphetamines Screen Negative U Benzodiazepines Scrn Negative U Oth Cocaine Metabols Negative U Cannabinoids Screen Negative Hepatitis A IgM Ab Hep Bs Antigen Hep B Core IgM Ab Hepatitis C Antibody Blood Type A NEGATIVE Blood Type Confirm Antibody Screen Negative Crossmatch See Detail BBK History Checked No verified bt 12/26/17 12/26/17 12/26/17 03:24 05:30 05:30 WBC 8.3 RBC 2.84 L Hgb 7.3 L Hct 22.0 L MCV 77.5 L MCH 25.7 MCHC 33.2 RDW 16.0 H Plt Count 116 L MPV 10.7 Gran % 89.1 H Lymph % (Auto) 9.1 L Bond % (Auto) 1.8 Eos % (Auto) 0.0 L Baso % (Auto) 0.0 Gran # 7.40 H Lymph # (Auto) 0.8 L Bond # (Auto) 0.2 Eos # (Auto) 0.0 Baso # (Auto) 0.00 PT INR pCO2 pO2 HCO3 ABG pH ABG Total CO2 ABG O2 Saturation ABG O2 Content ABG Base Excess ABG Hemoglobin ABG Carboxyhemoglobin POC ABG HHb (Measured) ABG Methemoglobin ABG O2 Capacity Hgb O2 Saturation FiO2 Sodium 148 Potassium 3.3 L Chloride 117 H Carbon Dioxide 22 Anion Gap 12 BUN 31 H Creatinine 0.8 Est GFR ( Amer) > 60 Est GFR (Non-Af Amer) > 60 POC Glucose (mg/dL) Random Glucose 126 H Calcium 6.4 L* Phosphorus 2.9 Magnesium 1.5 L Total Bilirubin 0.7 AST > 750 H D ALT 788 H Alkaline Phosphatase 707 H D Ammonia Troponin I < 0.01 Total Protein 4.7 L Albumin 2.1 L Globulin 2.6 Albumin/Globulin Ratio 0.8 L Amylase Lipase Procalcitonin TSH 3rd Generation Prolactin Urine Color Urine Appearance Urine pH Ur Specific [place] Urine Protein Urine Glucose (UA) Urine Ketones Urine Blood Urine Nitrate Urine Bilirubin Urine Urobilinogen Ur Leukocyte Esterase Urine Opiates Screen Urine Methadone Screen Ur Barbiturates Screen Ur Phencyclidine Scrn Ur Amphetamines Screen U Benzodiazepines Scrn U Oth Cocaine Metabols U Cannabinoids Screen Hepatitis A IgM Ab Hep Bs Antigen Hep B Core IgM Ab Hepatitis C Antibody Blood Type Blood Type Confirm A NEGATIVE Antibody Screen Crossmatch BBK History Checked 12/26/17 12/26/17 12/26/17 05:30 05:30 08:06 WBC RBC Hgb Hct MCV MCH MCHC RDW Plt Count MPV Gran % Lymph % (Auto) Bond % (Auto) Eos % (Auto) Baso % (Auto) Gran # Lymph # (Auto) Bond # (Auto) Eos # (Auto) Baso # (Auto) PT INR pCO2 pO2 HCO3 ABG pH ABG Total CO2 ABG O2 Saturation ABG O2 Content ABG Base Excess ABG Hemoglobin ABG Carboxyhemoglobin POC ABG HHb (Measured) ABG Methemoglobin ABG O2 Capacity Hgb O2 Saturation FiO2 Sodium Potassium Chloride Carbon Dioxide Anion Gap BUN Creatinine Est GFR ( Amer) Est GFR (Non-Af Amer) POC Glucose (mg/dL) 126 H Random Glucose Calcium Phosphorus Magnesium Total Bilirubin AST ALT Alkaline Phosphatase Ammonia Troponin I Total Protein Albumin Globulin Albumin/Globulin Ratio Amylase Lipase Procalcitonin 0.99 H TSH 3rd Generation Prolactin Urine Color Urine Appearance Urine pH Ur Specific Clayton Urine Protein Urine Glucose (UA) Urine Ketones Urine Blood Urine Nitrate Urine Bilirubin Urine Urobilinogen Ur Leukocyte Esterase Urine Opiates Screen Urine Methadone Screen Ur Barbiturates Screen Ur Phencyclidine Scrn Ur Amphetamines Screen U Benzodiazepines Scrn U Oth Cocaine Metabols U Cannabinoids Screen Hepatitis A IgM Ab Negative Hep Bs Antigen Negative Hep B Core IgM Ab Negative Hepatitis C Antibody Negative Blood Type Blood Type Confirm Antibody Screen Crossmatch BBK History Checked 12/26/17 12/26/17 12/26/17 09:10 09:10 09:35 WBC RBC Hgb Hct MCV MCH MCHC RDW Plt Count MPV Gran % Lymph % (Auto) Bond % (Auto) Eos % (Auto) Baso % (Auto) Gran # Lymph # (Auto) Bond # (Auto) Eos # (Auto) Baso # (Auto) PT 19.6 H INR 1.69 pCO2 pO2 HCO3 ABG pH ABG Total CO2 ABG O2 Saturation ABG O2 Content ABG Base Excess ABG Hemoglobin ABG Carboxyhemoglobin POC ABG HHb (Measured) ABG Methemoglobin ABG O2 Capacity Hgb O2 Saturation FiO2 Sodium Potassium Chloride Carbon Dioxide Anion Gap BUN Creatinine Est GFR ( Amer) Est GFR (Non-Af Amer) POC Glucose (mg/dL) Random Glucose Calcium Phosphorus Magnesium Total Bilirubin AST ALT Alkaline Phosphatase Ammonia Troponin I 0.02 D Total Protein Albumin Globulin Albumin/Globulin Ratio Amylase Lipase Procalcitonin TSH 3rd Generation 2.98 Prolactin Urine Color Urine Appearance Urine pH Ur Specific Clayton Urine Protein Urine Glucose (UA) Urine Ketones Urine Blood Urine Nitrate Urine Bilirubin Urine Urobilinogen Ur Leukocyte Esterase Urine Opiates Screen Urine Methadone Screen Ur Barbiturates Screen Ur Phencyclidine Scrn Ur Amphetamines Screen U Benzodiazepines Scrn U Oth Cocaine Metabols U Cannabinoids Screen Hepatitis A IgM Ab Hep Bs Antigen Hep B Core IgM Ab Hepatitis C Antibody Blood Type Blood Type Confirm Antibody Screen Crossmatch BBK History Checked EKG/Cardiology Studies: Cardiology / EKG Studies 12/25/17 22:30 EKG [ELECTROCARDIOGRAM] Q6H Comment: Reason For Exam: a fib, hypotension edis-tachy arrhythmia 12/26/17 07:00 EKG [ELECTROCARDIOGRAM] Routine Comment: Reason For Exam: syncope Fingerstick Blood Sugar Results: 269 Critical Care Progress Note - Nutrition Nutrition: Nutrition Category Date Time Status NPO Diet [DIET] Diets 12/26/17 Dinner Ordered Assessment/Plan - Assessment and Plan (Free Text) Assessment: This is a 42 year old female with PMH of mental retardation on risperodone presenting to ICU for management of cardiogenic shock requiring pressor support with hypotension, bradycardia, hypoglycemia, transaminitis and hypothermia 2/2 to likely chronic malnutrition with BMI of 10. Patient also has periorbital swelling, anterior scalp swelling and left rib 7-9 fractures concerning for trauma/fall. Plan: Neuro: -maintain normothermia, currently on elton hugger with improving temperature -patient is altered with sluggish pupils and minimal verbal response. CT Head last night showed anterior scalp and periorbital swelling. Repeat CT head today showed no interval change. Concern for recent trauma/fall. 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 Rios Cardio: -maintain MAP>65, currently receiving levophed @ 4 mcg/min -will monitor vitals including HR and BP closely, heart rate in the 40's today -EKG on admission showed afib, currently in sinus rhythm -troponin unremarkable -echo shows EF 53%, RVSP 57 and moderate MR. Otherwise unremarkable -Cardiology on consult, Dr. Pierson Lungs: -SaO2 >90% -supplementary O2 PRN -CT chest shows LLB atelectasis/infiltrate and acute left rib 7-9 fracture concerning for trauma/fall -CXR shows no active disease Renal: -maintain euvolemia -avoid nephrotoxic agents, hypochloremia -replace electrolytes as needed -BUN/Cr WNL -Mg and calcium low, replacements given -urine drug screen and acetominphen level are negative -GI: -patient is cachectic with BMI of 10, concern for chronic malnutrition -transaminitis improved today, likely secondary to shock liver -CT abd/chest shows severe edema in mesenteric fat, esophagitis and pelvis ascites. The swelling is consistent with severe malnutrition with low albumin -albumin on admission was 1.7, total of 25mg albumin given and today albumin is 2.1 -hepatitis panel is negative -CA-125 pending -GI prophylaxis with protonix -GI on consult, Dr. Rizo Heme: -INR elevated at 2.23 yesterday, received 2 units FFP. Today INR is 1.69 -Hg this morning was 7.3 from 9 yesterday. Recheck CBC today at 4pm -3 units PRBC on hold -DVT ppx with heparin 5k Endo: -maintain euglycemia, glucose 46 at 12pm -c-peptide pending -currently receiving D5 1/2 NS @ 125 ml/hr -TSH WNL ID: -WBC is 8.3 WNL, hypothermic -on vanc, zosyn -blood culture, urine culture, MRSA screen pending -HIV panel pending -ID on consult, Dr. Miles <Quinton Ruffin - Last Filed: 12/26/17 17:37> CCU Objective - Vital Signs / Intake & Output Vital Signs (Last 4 hours): Vital Signs Temp Pulse Resp BP 12/26/17 16:51 95.7 F L 38 L 15 116/58 L 12/26/17 16:34 95.6 F L 38 L 18 118/77 Intake and Output (Last 8hrs): Intake & Output 12/26/17 12/26/17 12/26/17 06:59 14:59 22:59 Intake Total 3534 0 Output Total 725 Balance 2809 0 Intake: IV 3534 Left Antecubital 3397 Right Forearm 106 Blood Product 0 Apheresis Rbc Cp2d As3 Lr 0 1st Unit [id number] Output: Urine 725 Urethral (Jimenez) 725 Other: # Bowel Movements 0 - Medications Active Medications: Active Medications Generic Name Dose Route Start Last Admin Trade Name Freq PRN Reason Stop Dose Admin Heparin Sodium (Porcine) 5,000 units 12/26/17 10:00 12/26/17 16:48 Heparin SC Not Given Q12 NASH Protocol Hydrocortisone Sodium Succinate 50 mg 12/26/17 18:00 Solu-Cortef IVP Q6 NASH Norepinephrine Bitartrate 8 mg 508 mls @ 15.24 mls/hr 12/25/17 20:06 01:30 / Sodium Chloride IV 4 mcg/min .Q24H PRN 15.24 mls/hr TITRATE PER MD ORDER Titration Protocol 4 MCG/MIN Piperacillin Sod/Tazobactam Sod 100 mls @ 200 mls/hr 12/25/17 20:32 12/26/17 17:34 Zosyn 3.375 In Ns 100ml IVPB 01/01/18 20:33 200 mls/hr Q6 NASH Administration Protocol Vancomycin HCl 1 gm in 250 mls @ 167 mls/hr 12/26/17 10:00 12/26/17 10:46 Vancomycin 1gm IVPB Not Given Q12 [facility]H Protocol Levetiracetam 500 mg/ Sodium 105 mls @ 460 mls/hr 12/26/17 22:00 Chloride IV Q12 NASH Dextrose/Sodium Chloride 1,000 mls @ 125 mls/hr 12/26/17 14:15 12/26/17 14:31 Dextrose 5%/0.45% Ns 1000 Ml IV 125 mls/hr .Q8H NASH Administration Pantoprazole Sodium 40 mg 12/26/17 10:00 12/26/17 09:18 Protonix Inj IVP 40 mg DAILY NASH Administration - Patient Studies Lab Studies: Lab Studies 12/26/17 12/26/17 12/26/17 Range/Units 16:00 14:55 13:00 WBC 4.5 D (4.5-11.0) 10^3/ul RBC 2.36 L (3.5-6.1) 10^6/uL Hgb 6.2 L* (12.0-16.0) g/dL Hct 18.4 L* (36.0-48.0) % MCV 78.0 L (80.0-105.0) fl MCH 26.3 (25.0-35.0) pg MCHC 33.7 (31.0-37.0) g/dl RDW 16.3 H (11.5-14.5) % Plt Count 89 L (120.0-450.0) 10^3/uL MPV 11.7 H (7.0-11.0) fl Gran % 89.8 H (50.0-68.0) % Lymph % (Auto) 8.9 L (22.0-35.0) % Bond % (Auto) 1.3 (1.0-6.0) % Eos % (Auto) 0.0 L (1.5-5.0) % Baso % (Auto) 0.0 (0.0-3.0) % Gran # 4.03 (1.4-6.5) Lymph # (Auto) 0.4 L (1.2-3.4) Bond # (Auto) 0.1 (0.1-0.6) Eos # (Auto) 0.0 (0.0-0.7) Baso # (Auto) 0.00 (0.0-2.0) K/mm3 Differential Comment Haptoglobin 55.8 (30.0-200.0) mg/dL PT (9.4-12.5) SECONDS INR pCO2 (35-45) mm/Hg pO2 (80-100) mm/Hg HCO3 (21-28) mmol/L ABG pH (7.35-7.45) ABG Total CO2 (22-28) mmol.L ABG O2 Saturation (95-98) % ABG O2 Content (15-23) ML/dl ABG Base Excess (-2.0-3.0) mmol/L ABG Hemoglobin (11.7-17.4) g/dL ABG Carboxyhemoglobin (0.5-1.5) % POC ABG HHb (Measured) (0-5) % ABG Methemoglobin (0.0-3.0) % ABG O2 Capacity (16-24) mL/dl Hgb O2 Saturation (95.0-98.0) % FiO2 % Sodium 150 H (132-148) mmol/L Potassium 3.5 L (3.6-5.0) mmol/L Chloride 119 H (98-107) mmol/L Carbon Dioxide 25 (21-33) mmol/L Anion Gap 10 (10-20) BUN 27 H (7-21) mg/dL Creatinine 0.9 (0.7-1.2) mg/dl Est GFR ( Amer) > 60 Est GFR (Non-Af Amer) > 60 POC Glucose (mg/dL) (65-110) mg/dL Random Glucose 146 H (70-110) mg/dL Calcium 6.2 L* (8.4-10.5) mg/dL Phosphorus (2.5-4.5) mg/dL Magnesium (1.7-2.2) mg/dL Iron (45-180) ug/dL TIBC (265-497) ug/dL % Saturation (20-55) % Transferrin 100.93 L (206-381) mg/dL Total Bilirubin 1.3 (0.2-1.3) mg/dL AST 975 H D (14-36) U/L ALT 680 H (7-56) U/L Alkaline Phosphatase 576 H (38-126) U/L Ammonia (9-33) umol/L Troponin I ng/mL Total Protein 4.5 L (5.8-8.3) g/dL Albumin 2.1 L (3.0-4.8) g/dL Globulin 2.4 gm/dL Albumin/Globulin Ratio 0.9 L (1.1-1.8) Amylase (35-125) U/L Lipase (23-300) U/L CA 125 Antigen (0-35) U/mL Procalcitonin (0.19-0.49) NG/ML TSH 3rd Generation (0.46-4.68) mIU/mL Prolactin (3.0-18.9) ng/mL Urine Color (YELLOW) Urine Appearance (CLEAR) Urine pH (4.7-8.0) Ur Specific Clayton (1.005-1.035) Urine Protein (<30 mg/dL) mg/dL Urine Glucose (UA) (NEGATIVE) mg/dL Urine Ketones (NEGATIVE) mg/dL Urine Blood (NEGATIVE) Urine Nitrate (NEGATIVE) Urine Bilirubin (NEGATIVE) Urine Urobilinogen (<1 E.U./dL) E.U./dL Ur Leukocyte Esterase (NEGATIVE) Alverto/uL Urine Opiates Screen (NEGATIVE) Urine Methadone Screen (NEGATIVE) Ur Barbiturates Screen (NEGATIVE) Ur Phencyclidine Scrn (NEGATIVE) Ur Amphetamines Screen (NEGATIVE) U Benzodiazepines Scrn (NEGATIVE) U Oth Cocaine Metabols (NEGATIVE) U Cannabinoids Screen (NEGATIVE) Hepatitis A IgM Ab (NEGATIVE) Hepatitis A Ab Total (NEGATIVE) Hep Bs Antigen (NEGATIVE) Hep B Core IgM Ab (NEGATIVE) Hepatitis C Antibody (NEGATIVE) Blood Type Blood Type Confirm Antibody Screen Crossmatch BBK History Checked 12/26/17 12/26/17 12/26/17 Range/Units 13:00 11:00 11:00 WBC (4.5-11.0) 10^3/ul RBC (3.5-6.1) 10^6/uL Hgb (12.0-16.0) g/dL Hct (36.0-48.0) % MCV (80.0-105.0) fl MCH (25.0-35.0) pg MCHC (31.0-37.0) g/dl RDW (11.5-14.5) % Plt Count (120.0-450.0) 10^3/uL MPV (7.0-11.0) fl Gran % (50.0-68.0) % Lymph % (Auto) (22.0-35.0) % Bond % (Auto) (1.0-6.0) % Eos % (Auto) (1.5-5.0) % Baso % (Auto) (0.0-3.0) % Gran # (1.4-6.5) Lymph # (Auto) (1.2-3.4) Bond # (Auto) (0.1-0.6) Eos # (Auto) (0.0-0.7) Baso # (Auto) (0.0-2.0) K/mm3 Differential Comment Haptoglobin (30.0-200.0) mg/dL PT (9.4-12.5) SECONDS INR pCO2 (35-45) mm/Hg pO2 (80-100) mm/Hg HCO3 (21-28) mmol/L ABG pH (7.35-7.45) ABG Total CO2 (22-28) mmol.L ABG O2 Saturation (95-98) % ABG O2 Content (15-23) ML/dl ABG Base Excess (-2.0-3.0) mmol/L ABG Hemoglobin (11.7-17.4) g/dL ABG Carboxyhemoglobin (0.5-1.5) % POC ABG HHb (Measured) (0-5) % ABG Methemoglobin (0.0-3.0) % ABG O2 Capacity (16-24) mL/dl Hgb O2 Saturation (95.0-98.0) % FiO2 % Sodium (132-148) mmol/L Potassium (3.6-5.0) mmol/L Chloride (98-107) mmol/L Carbon Dioxide (21-33) mmol/L Anion Gap (10-20) BUN (7-21) mg/dL Creatinine (0.7-1.2) mg/dl Est GFR ( Amer) Est GFR (Non-Af Amer) POC Glucose (mg/dL) (65-110) mg/dL Random Glucose (70-110) mg/dL Calcium (8.4-10.5) mg/dL Phosphorus (2.5-4.5) mg/dL Magnesium (1.7-2.2) mg/dL Iron 55 (45-180) ug/dL TIBC 174 L (265-497) ug/dL % Saturation 32 (20-55) % Transferrin (206-381) mg/dL Total Bilirubin (0.2-1.3) mg/dL AST (14-36) U/L ALT (7-56) U/L Alkaline Phosphatase (38-126) U/L Ammonia (9-33) umol/L Troponin I ng/mL Total Protein (5.8-8.3) g/dL Albumin (3.0-4.8) g/dL Globulin gm/dL Albumin/Globulin Ratio (1.1-1.8) Amylase (35-125) U/L Lipase (23-300) U/L CA 125 Antigen 21.4 (0-35) U/mL Procalcitonin (0.19-0.49) NG/ML TSH 3rd Generation (0.46-4.68) mIU/mL Prolactin (3.0-18.9) ng/mL Urine Color (YELLOW) Urine Appearance (CLEAR) Urine pH (4.7-8.0) Ur Specific Clayton (1.005-1.035) Urine Protein (<30 mg/dL) mg/dL Urine Glucose (UA) (NEGATIVE) mg/dL Urine Ketones (NEGATIVE) mg/dL Urine Blood (NEGATIVE) Urine Nitrate (NEGATIVE) Urine Bilirubin (NEGATIVE) Urine Urobilinogen (<1 E.U./dL) E.U./dL Ur Leukocyte Esterase (NEGATIVE) Alverto/uL Urine Opiates Screen (NEGATIVE) Urine Methadone Screen (NEGATIVE) Ur Barbiturates Screen (NEGATIVE) Ur Phencyclidine Scrn (NEGATIVE) Ur Amphetamines Screen (NEGATIVE) U Benzodiazepines Scrn (NEGATIVE) U Oth Cocaine Metabols (NEGATIVE) U Cannabinoids Screen (NEGATIVE) Hepatitis A IgM Ab Negative (NEGATIVE) Hepatitis A Ab Total Antibody neg (NEGATIVE) Hep Bs Antigen (NEGATIVE) Hep B Core IgM Ab (NEGATIVE) Hepatitis C Antibody Negative (NEGATIVE) Blood Type Blood Type Confirm Antibody Screen Crossmatch BBK History Checked 12/26/17 12/26/17 12/26/17 Range/Units 09:35 09:10 09:10 WBC (4.5-11.0) 10^3/ul RBC (3.5-6.1) 10^6/uL Hgb (12.0-16.0) g/dL Hct (36.0-48.0) % MCV (80.0-105.0) fl MCH (25.0-35.0) pg MCHC (31.0-37.0) g/dl RDW (11.5-14.5) % Plt Count (120.0-450.0) 10^3/uL MPV (7.0-11.0) fl Gran % (50.0-68.0) % Lymph % (Auto) (22.0-35.0) % Bond % (Auto) (1.0-6.0) % Eos % (Auto) (1.5-5.0) % Baso % (Auto) (0.0-3.0) % Gran # (1.4-6.5) Lymph # (Auto) (1.2-3.4) Bond # (Auto) (0.1-0.6) Eos # (Auto) (0.0-0.7) Baso # (Auto) (0.0-2.0) K/mm3 Differential Comment Haptoglobin (30.0-200.0) mg/dL PT 19.6 H (9.4-12.5) SECONDS INR 1.69 pCO2 (35-45) mm/Hg pO2 (80-100) mm/Hg HCO3 (21-28) mmol/L ABG pH (7.35-7.45) ABG Total CO2 (22-28) mmol.L ABG O2 Saturation (95-98) % ABG O2 Content (15-23) ML/dl ABG Base Excess (-2.0-3.0) mmol/L ABG Hemoglobin (11.7-17.4) g/dL ABG Carboxyhemoglobin (0.5-1.5) % POC ABG HHb (Measured) (0-5) % ABG Methemoglobin (0.0-3.0) % ABG O2 Capacity (16-24) mL/dl Hgb O2 Saturation (95.0-98.0) % FiO2 % Sodium (132-148) mmol/L Potassium (3.6-5.0) mmol/L Chloride (98-107) mmol/L Carbon Dioxide (21-33) mmol/L Anion Gap (10-20) BUN (7-21) mg/dL Creatinine (0.7-1.2) mg/dl Est GFR ( Amer) Est GFR (Non-Af Amer) POC Glucose (mg/dL) (65-110) mg/dL Random Glucose (70-110) mg/dL Calcium (8.4-10.5) mg/dL Phosphorus (2.5-4.5) mg/dL Magnesium (1.7-2.2) mg/dL Iron (45-180) ug/dL TIBC (265-497) ug/dL % Saturation (20-55) % Transferrin (206-381) mg/dL Total Bilirubin (0.2-1.3) mg/dL AST (14-36) U/L ALT (7-56) U/L Alkaline Phosphatase (38-126) U/L Ammonia (9-33) umol/L Troponin I 0.02 D ng/mL Total Protein (5.8-8.3) g/dL Albumin (3.0-4.8) g/dL Globulin gm/dL Albumin/Globulin Ratio (1.1-1.8) Amylase (35-125) U/L Lipase (23-300) U/L CA 125 Antigen (0-35) U/mL Procalcitonin (0.19-0.49) NG/ML TSH 3rd Generation 2.98 (0.46-4.68) mIU/mL Prolactin (3.0-18.9) ng/mL Urine Color (YELLOW) Urine Appearance (CLEAR) Urine pH (4.7-8.0) Ur Specific Clayton (1.005-1.035) Urine Protein (<30 mg/dL) mg/dL Urine Glucose (UA) (NEGATIVE) mg/dL Urine Ketones (NEGATIVE) mg/dL Urine Blood (NEGATIVE) Urine Nitrate (NEGATIVE) Urine Bilirubin (NEGATIVE) Urine Urobilinogen (<1 E.U./dL) E.U./dL Ur Leukocyte Esterase (NEGATIVE) Alverto/uL Urine Opiates Screen (NEGATIVE) Urine Methadone Screen (NEGATIVE) Ur Barbiturates Screen (NEGATIVE) Ur Phencyclidine Scrn (NEGATIVE) Ur Amphetamines Screen (NEGATIVE) U Benzodiazepines Scrn (NEGATIVE) U Oth Cocaine Metabols (NEGATIVE) U Cannabinoids Screen (NEGATIVE) Hepatitis A IgM Ab (NEGATIVE) Hepatitis A Ab Total (NEGATIVE) Hep Bs Antigen Negative (NEGATIVE) Hep B Core IgM Ab (NEGATIVE) Hepatitis C Antibody (NEGATIVE) Blood Type Blood Type Confirm Antibody Screen Crossmatch BBK History Checked 12/26/17 12/26/17 12/26/17 Range/Units 08:06 06:30 05:30 WBC (4.5-11.0) 10^3/ul RBC (3.5-6.1) 10^6/uL Hgb (12.0-16.0) g/dL Hct (36.0-48.0) % MCV (80.0-105.0) fl MCH (25.0-35.0) pg MCHC (31.0-37.0) g/dl RDW (11.5-14.5) % Plt Count (120.0-450.0) 10^3/uL MPV (7.0-11.0) fl Gran % (50.0-68.0) % Lymph % (Auto) (22.0-35.0) % Bond % (Auto) (1.0-6.0) % Eos % (Auto) (1.5-5.0) % Baso % (Auto) (0.0-3.0) % Gran # (1.4-6.5) Lymph # (Auto) (1.2-3.4) Bond # (Auto) (0.1-0.6) Eos # (Auto) (0.0-0.7) Baso # (Auto) (0.0-2.0) K/mm3 Differential Comment See pathology report Haptoglobin (30.0-200.0) mg/dL PT (9.4-12.5) SECONDS INR pCO2 (35-45) mm/Hg pO2 (80-100) mm/Hg HCO3 (21-28) mmol/L ABG pH (7.35-7.45) ABG Total CO2 (22-28) mmol.L ABG O2 Saturation (95-98) % ABG O2 Content (15-23) ML/dl ABG Base Excess (-2.0-3.0) mmol/L ABG Hemoglobin (11.7-17.4) g/dL ABG Carboxyhemoglobin (0.5-1.5) % POC ABG HHb (Measured) (0-5) % ABG Methemoglobin (0.0-3.0) % ABG O2 Capacity (16-24) mL/dl Hgb O2 Saturation (95.0-98.0) % FiO2 % Sodium (132-148) mmol/L Potassium (3.6-5.0) mmol/L Chloride (98-107) mmol/L Carbon Dioxide (21-33) mmol/L Anion Gap (10-20) BUN (7-21) mg/dL Creatinine (0.7-1.2) mg/dl Est GFR ( Amer) Est GFR (Non-Af Amer) POC Glucose (mg/dL) 126 H (65-110) mg/dL Random Glucose (70-110) mg/dL Calcium (8.4-10.5) mg/dL Phosphorus (2.5-4.5) mg/dL Magnesium (1.7-2.2) mg/dL Iron (45-180) ug/dL TIBC (265-497) ug/dL % Saturation (20-55) % Transferrin (206-381) mg/dL Total Bilirubin (0.2-1.3) mg/dL AST (14-36) U/L ALT (7-56) U/L Alkaline Phosphatase (38-126) U/L Ammonia (9-33) umol/L Troponin I ng/mL Total Protein (5.8-8.3) g/dL Albumin (3.0-4.8) g/dL Globulin gm/dL Albumin/Globulin Ratio (1.1-1.8) Amylase (35-125) U/L Lipase (23-300) U/L CA 125 Antigen (0-35) U/mL Procalcitonin (0.19-0.49) NG/ML TSH 3rd Generation (0.46-4.68) mIU/mL Prolactin (3.0-18.9) ng/mL Urine Color (YELLOW) Urine Appearance (CLEAR) Urine pH (4.7-8.0) Ur Specific Clayton (1.005-1.035) Urine Protein (<30 mg/dL) mg/dL Urine Glucose (UA) (NEGATIVE) mg/dL Urine Ketones (NEGATIVE) mg/dL Urine Blood (NEGATIVE) Urine Nitrate (NEGATIVE) Urine Bilirubin (NEGATIVE) Urine Urobilinogen (<1 E.U./dL) E.U./dL Ur Leukocyte Esterase (NEGATIVE) Alverto/uL Urine Opiates Screen (NEGATIVE) Urine Methadone Screen (NEGATIVE) Ur Barbiturates Screen (NEGATIVE) Ur Phencyclidine Scrn (NEGATIVE) Ur Amphetamines Screen (NEGATIVE) U Benzodiazepines Scrn (NEGATIVE) U Oth Cocaine Metabols (NEGATIVE) U Cannabinoids Screen (NEGATIVE) Hepatitis A IgM Ab Negative (NEGATIVE) Hepatitis A Ab Total (NEGATIVE) Hep Bs Antigen Negative (NEGATIVE) Hep B Core IgM Ab Negative (NEGATIVE) Hepatitis C Antibody Negative (NEGATIVE) Blood Type Blood Type Confirm Antibody Screen Crossmatch BBK History Checked 08/24/18 08/24/18 08/24/18 Range/Units 05:30 05:30 05:30 WBC 8.3 (4.5-11.0) 10^3/ul RBC 2.84 L (3.5-6.1) 10^6/uL Hgb 7.3 L (12.0-16.0) g/dL Hct 22.0 L (36.0-48.0) % MCV 77.5 L (80.0-105.0) fl MCH 25.7 (25.0-35.0) pg MCHC 33.2 (31.0-37.0) g/dl RDW 16.0 H (11.5-14.5) % Plt Count 116 L (120.0-450.0) 10^3/uL MPV 10.7 (7.0-11.0) fl Gran % 89.1 H (50.0-68.0) % Lymph % (Auto) 9.1 L (22.0-35.0) % Bond % (Auto) 1.8 (1.0-6.0) % Eos % (Auto) 0.0 L (1.5-5.0) % Baso % (Auto) 0.0 (0.0-3.0) % Gran # 7.40 H (1.4-6.5) Lymph # (Auto) 0.8 L (1.2-3.4) Bond # (Auto) 0.2 (0.1-0.6) Eos # (Auto) 0.0 (0.0-0.7) Baso # (Auto) 0.00 (0.0-2.0) K/mm3 Differential Comment Haptoglobin (30.0-200.0) mg/dL PT (9.4-12.5) SECONDS INR pCO2 (35-45) mm/Hg pO2 (80-100) mm/Hg HCO3 (21-28) mmol/L ABG pH (7.35-7.45) ABG Total CO2 (22-28) mmol.L ABG O2 Saturation (95-98) % ABG O2 Content (15-23) ML/dl ABG Base Excess (-2.0-3.0) mmol/L ABG Hemoglobin (11.7-17.4) g/dL ABG Carboxyhemoglobin (0.5-1.5) % POC ABG HHb (Measured) (0-5) % ABG Methemoglobin (0.0-3.0) % ABG O2 Capacity (16-24) mL/dl Hgb O2 Saturation (95.0-98.0) % FiO2 % Sodium 148 (132-148) mmol/L Potassium 3.3 L (3.6-5.0) mmol/L Chloride 117 H (98-107) mmol/L Carbon Dioxide 22 (21-33) mmol/L Anion Gap 12 (10-20) BUN 31 H (7-21) mg/dL Creatinine 0.8 (0.7-1.2) mg/dl Est GFR ( Amer) > 60 Est GFR (Non-Af Amer) > 60 POC Glucose (mg/dL) (65-110) mg/dL Random Glucose 126 H (70-110) mg/dL Calcium 6.4 L* (8.4-10.5) mg/dL Phosphorus 2.9 (2.5-4.5) mg/dL Magnesium 1.5 L (1.7-2.2) mg/dL Iron (45-180) ug/dL TIBC (265-497) ug/dL % Saturation (20-55) % Transferrin (206-381) mg/dL Total Bilirubin 0.7 (0.2-1.3) mg/dL AST > 750 H D (14-36) U/L ALT 788 H (7-56) U/L Alkaline Phosphatase 707 H D (38-126) U/L Ammonia (9-33) umol/L Troponin I < 0.01 ng/mL Total Protein 4.7 L (5.8-8.3) g/dL Albumin 2.1 L (3.0-4.8) g/dL Globulin 2.6 gm/dL Albumin/Globulin Ratio 0.8 L (1.1-1.8) Amylase (35-125) U/L Lipase (23-300) U/L CA 125 Antigen (0-35) U/mL Procalcitonin 0.99 H (0.19-0.49) NG/ML TSH 3rd Generation (0.46-4.68) mIU/mL Prolactin (3.0-18.9) ng/mL Urine Color (YELLOW) Urine Appearance (CLEAR) Urine pH (4.7-8.0) Ur Specific Clayton (1.005-1.035) Urine Protein (<30 mg/dL) mg/dL Urine Glucose (UA) (NEGATIVE) mg/dL Urine Ketones (NEGATIVE) mg/dL Urine Blood (NEGATIVE) Urine Nitrate (NEGATIVE) Urine Bilirubin (NEGATIVE) Urine Urobilinogen (<1 E.U./dL) E.U./dL Ur Leukocyte Esterase (NEGATIVE) Alverto/uL Urine Opiates Screen (NEGATIVE) Urine Methadone Screen (NEGATIVE) Ur Barbiturates Screen (NEGATIVE) Ur Phencyclidine Scrn (NEGATIVE) Ur Amphetamines Screen (NEGATIVE) U Benzodiazepines Scrn (NEGATIVE) U Oth Cocaine Metabols (NEGATIVE) U Cannabinoids Screen (NEGATIVE) Hepatitis A IgM Ab (NEGATIVE) Hepatitis A Ab Total (NEGATIVE) Hep Bs Antigen (NEGATIVE) Hep B Core IgM Ab (NEGATIVE) Hepatitis C Antibody (NEGATIVE) Blood Type Blood Type Confirm Antibody Screen Crossmatch BBK History Checked 12/26/17 12/26/17 12/25/17 Range/Units 03:24 03:00 23:09 WBC (4.5-11.0) 10^3/ul RBC (3.5-6.1) 10^6/uL Hgb (12.0-16.0) g/dL Hct (36.0-48.0) % MCV (80.0-105.0) fl MCH (25.0-35.0) pg MCHC (31.0-37.0) g/dl RDW (11.5-14.5) % Plt Count (120.0-450.0) 10^3/uL MPV (7.0-11.0) fl Gran % (50.0-68.0) % Lymph % (Auto) (22.0-35.0) % Bond % (Auto) (1.0-6.0) % Eos % (Auto) (1.5-5.0) % Baso % (Auto) (0.0-3.0) % Gran # (1.4-6.5) Lymph # (Auto) (1.2-3.4) Bond # (Auto) (0.1-0.6) Eos # (Auto) (0.0-0.7) Baso # (Auto) (0.0-2.0) K/mm3 Differential Comment Haptoglobin (30.0-200.0) mg/dL PT (9.4-12.5) SECONDS INR pCO2 (35-45) mm/Hg pO2 (80-100) mm/Hg HCO3 (21-28) mmol/L ABG pH (7.35-7.45) ABG Total CO2 (22-28) mmol.L ABG O2 Saturation (95-98) % ABG O2 Content (15-23) ML/dl ABG Base Excess (-2.0-3.0) mmol/L ABG Hemoglobin (11.7-17.4) g/dL ABG Carboxyhemoglobin (0.5-1.5) % POC ABG HHb (Measured) (0-5) % ABG Methemoglobin (0.0-3.0) % ABG O2 Capacity (16-24) mL/dl Hgb O2 Saturation (95.0-98.0) % FiO2 % Sodium (132-148) mmol/L Potassium (3.6-5.0) mmol/L Chloride (98-107) mmol/L Carbon Dioxide (21-33) mmol/L Anion Gap (10-20) BUN (7-21) mg/dL Creatinine (0.7-1.2) mg/dl Est GFR ( Amer) Est GFR (Non-Af Amer) POC Glucose (mg/dL) (65-110) mg/dL Random Glucose (70-110) mg/dL Calcium (8.4-10.5) mg/dL Phosphorus (2.5-4.5) mg/dL Magnesium (1.7-2.2) mg/dL Iron (45-180) ug/dL TIBC (265-497) ug/dL % Saturation (20-55) % Transferrin (206-381) mg/dL Total Bilirubin (0.2-1.3) mg/dL AST (14-36) U/L ALT (7-56) U/L Alkaline Phosphatase (38-126) U/L Ammonia (9-33) umol/L Troponin I ng/mL Total Protein (5.8-8.3) g/dL Albumin (3.0-4.8) g/dL Globulin gm/dL Albumin/Globulin Ratio (1.1-1.8) Amylase (35-125) U/L Lipase (23-300) U/L CA 125 Antigen (0-35) U/mL Procalcitonin (0.19-0.49) NG/ML TSH 3rd Generation (0.46-4.68) mIU/mL Prolactin (3.0-18.9) ng/mL Urine Color (YELLOW) Urine Appearance (CLEAR) Urine pH (4.7-8.0) Ur Specific Clayton (1.005-1.035) Urine Protein (<30 mg/dL) mg/dL Urine Glucose (UA) (NEGATIVE) mg/dL Urine Ketones (NEGATIVE) mg/dL Urine Blood (NEGATIVE) Urine Nitrate (NEGATIVE) Urine Bilirubin (NEGATIVE) Urine Urobilinogen (<1 E.U./dL) E.U./dL Ur Leukocyte Esterase (NEGATIVE) Alverto/uL Urine Opiates Screen Negative (NEGATIVE) Urine Methadone Screen Negative (NEGATIVE) Ur Barbiturates Screen Negative (NEGATIVE) Ur Phencyclidine Scrn Negative (NEGATIVE) Ur Amphetamines Screen Negative (NEGATIVE) U Benzodiazepines Scrn Negative (NEGATIVE) U Oth Cocaine Metabols Negative (NEGATIVE) U Cannabinoids Screen Negative (NEGATIVE) Hepatitis A IgM Ab (NEGATIVE) Hepatitis A Ab Total (NEGATIVE) Hep Bs Antigen (NEGATIVE) Hep B Core IgM Ab (NEGATIVE) Hepatitis C Antibody (NEGATIVE) Blood Type A NEGATIVE Blood Type Confirm A NEGATIVE Antibody Screen Negative Crossmatch See Detail BBK History Checked No verified bt 12/25/17 12/25/17 12/25/17 Range/Units 21:49 21:30 21:30 WBC (4.5-11.0) 10^3/ul RBC (3.5-6.1) 10^6/uL Hgb (12.0-16.0) g/dL Hct (36.0-48.0) % MCV (80.0-105.0) fl MCH (25.0-35.0) pg MCHC (31.0-37.0) g/dl RDW (11.5-14.5) % Plt Count (120.0-450.0) 10^3/uL MPV (7.0-11.0) fl Gran % (50.0-68.0) % Lymph % (Auto) (22.0-35.0) % Bond % (Auto) (1.0-6.0) % Eos % (Auto) (1.5-5.0) % Baso % (Auto) (0.0-3.0) % Gran # (1.4-6.5) Lymph # (Auto) (1.2-3.4) Bond # (Auto) (0.1-0.6) Eos # (Auto) (0.0-0.7) Baso # (Auto) (0.0-2.0) K/mm3 Differential Comment Haptoglobin (30.0-200.0) mg/dL PT (9.4-12.5) SECONDS INR pCO2 (35-45) mm/Hg pO2 (80-100) mm/Hg HCO3 (21-28) mmol/L ABG pH (7.35-7.45) ABG Total CO2 (22-28) mmol.L ABG O2 Saturation (95-98) % ABG O2 Content (15-23) ML/dl ABG Base Excess (-2.0-3.0) mmol/L ABG Hemoglobin (11.7-17.4) g/dL ABG Carboxyhemoglobin (0.5-1.5) % POC ABG HHb (Measured) (0-5) % ABG Methemoglobin (0.0-3.0) % ABG O2 Capacity (16-24) mL/dl Hgb O2 Saturation (95.0-98.0) % FiO2 % Sodium (132-148) mmol/L Potassium (3.6-5.0) mmol/L Chloride (98-107) mmol/L Carbon Dioxide (21-33) mmol/L Anion Gap (10-20) BUN (7-21) mg/dL Creatinine (0.7-1.2) mg/dl Est GFR ( Amer) Est GFR (Non-Af Amer) POC Glucose (mg/dL) 269 H (65-110) mg/dL Random Glucose (70-110) mg/dL Calcium (8.4-10.5) mg/dL Phosphorus 3.1 (2.5-4.5) mg/dL Magnesium 1.7 (1.7-2.2) mg/dL Iron (45-180) ug/dL TIBC (265-497) ug/dL % Saturation (20-55) % Transferrin (206-381) mg/dL Total Bilirubin (0.2-1.3) mg/dL AST (14-36) U/L ALT (7-56) U/L Alkaline Phosphatase (38-126) U/L Ammonia (9-33) umol/L Troponin I < 0.01 ng/mL Total Protein (5.8-8.3) g/dL Albumin (3.0-4.8) g/dL Globulin gm/dL Albumin/Globulin Ratio (1.1-1.8) Amylase 367 H (35-125) U/L Lipase 549 H (23-300) U/L CA 125 Antigen (0-35) U/mL Procalcitonin (0.19-0.49) NG/ML TSH 3rd Generation (0.46-4.68) mIU/mL Prolactin 29.2 H (3.0-18.9) ng/mL Urine Color (YELLOW) Urine Appearance (CLEAR) Urine pH (4.7-8.0) Ur Specific [place] (1.005-1.035) Urine Protein (<30 mg/dL) mg/dL Urine Glucose (UA) (NEGATIVE) mg/dL Urine Ketones (NEGATIVE) mg/dL Urine Blood (NEGATIVE) Urine Nitrate (NEGATIVE) Urine Bilirubin (NEGATIVE) Urine Urobilinogen (<1 E.U./dL) E.U./dL Ur Leukocyte Esterase (NEGATIVE) Alverto/uL Urine Opiates Screen (NEGATIVE) Urine Methadone Screen (NEGATIVE) Ur Barbiturates Screen (NEGATIVE) Ur Phencyclidine Scrn (NEGATIVE) Ur Amphetamines Screen (NEGATIVE) U Benzodiazepines Scrn (NEGATIVE) U Oth Cocaine Metabols (NEGATIVE) U Cannabinoids Screen (NEGATIVE) Hepatitis A IgM Ab (NEGATIVE) Hepatitis A Ab Total (NEGATIVE) Hep Bs Antigen (NEGATIVE) Hep B Core IgM Ab (NEGATIVE) Hepatitis C Antibody (NEGATIVE) Blood Type Blood Type Confirm Antibody Screen Crossmatch BBK History Checked 12/25/17 12/25/17 12/25/17 Range/Units 21:30 20:19 20:03 WBC (4.5-11.0) 10^3/ul RBC (3.5-6.1) 10^6/uL Hgb (12.0-16.0) g/dL Hct (36.0-48.0) % MCV (80.0-105.0) fl MCH (25.0-35.0) pg MCHC (31.0-37.0) g/dl RDW (11.5-14.5) % Plt Count (120.0-450.0) 10^3/uL MPV (7.0-11.0) fl Gran % (50.0-68.0) % Lymph % (Auto) (22.0-35.0) % Bond % (Auto) (1.0-6.0) % Eos % (Auto) (1.5-5.0) % Baso % (Auto) (0.0-3.0) % Gran # (1.4-6.5) Lymph # (Auto) (1.2-3.4) Bond # (Auto) (0.1-0.6) Eos # (Auto) (0.0-0.7) Baso # (Auto) (0.0-2.0) K/mm3 Differential Comment Haptoglobin (30.0-200.0) mg/dL PT (9.4-12.5) SECONDS INR pCO2 41 (35-45) mm/Hg pO2 110.0 H (80-100) mm/Hg HCO3 21.6 (21-28) mmol/L ABG pH 7.33 L (7.35-7.45) ABG Total CO2 22.9 (22-28) mmol.L ABG O2 Saturation 99.6 H (95-98) % ABG O2 Content 10.9 L (15-23) ML/dl ABG Base Excess -4.0 L (-2.0-3.0) mmol/L ABG Hemoglobin 7.8 L (11.7-17.4) g/dL ABG Carboxyhemoglobin 1.4 (0.5-1.5) % POC ABG HHb (Measured) 0.4 (0-5) % ABG Methemoglobin 0.7 (0.0-3.0) % ABG O2 Capacity 10.9 L (16-24) mL/dl Hgb O2 Saturation 97.4 (95.0-98.0) % FiO2 21.0 % Sodium (132-148) mmol/L Potassium (3.6-5.0) mmol/L Chloride (98-107) mmol/L Carbon Dioxide (21-33) mmol/L Anion Gap (10-20) BUN (7-21) mg/dL Creatinine (0.7-1.2) mg/dl Est GFR ( Amer) Est GFR (Non-Af Amer) POC Glucose (mg/dL) 284 H (65-110) mg/dL Random Glucose (70-110) mg/dL Calcium (8.4-10.5) mg/dL Phosphorus (2.5-4.5) mg/dL Magnesium (1.7-2.2) mg/dL Iron (45-180) ug/dL TIBC (265-497) ug/dL % Saturation (20-55) % Transferrin (206-381) mg/dL Total Bilirubin (0.2-1.3) mg/dL AST (14-36) U/L ALT (7-56) U/L Alkaline Phosphatase (38-126) U/L Ammonia 37 H (9-33) umol/L Troponin I ng/mL Total Protein (5.8-8.3) g/dL Albumin (3.0-4.8) g/dL Globulin gm/dL Albumin/Globulin Ratio (1.1-1.8) Amylase (35-125) U/L Lipase (23-300) U/L CA 125 Antigen (0-35) U/mL Procalcitonin (0.19-0.49) NG/ML TSH 3rd Generation (0.46-4.68) mIU/mL Prolactin (3.0-18.9) ng/mL Urine Color (YELLOW) Urine Appearance (CLEAR) Urine pH (4.7-8.0) Ur Specific [place] (1.005-1.035) Urine Protein (<30 mg/dL) mg/dL Urine Glucose (UA) (NEGATIVE) mg/dL Urine Ketones (NEGATIVE) mg/dL Urine Blood (NEGATIVE) Urine Nitrate (NEGATIVE) Urine Bilirubin (NEGATIVE) Urine Urobilinogen (<1 E.U./dL) E.U./dL Ur Leukocyte Esterase (NEGATIVE) Alverto/uL Urine Opiates Screen (NEGATIVE) Urine Methadone Screen (NEGATIVE) Ur Barbiturates Screen (NEGATIVE) Ur Phencyclidine Scrn (NEGATIVE) Ur Amphetamines Screen (NEGATIVE) U Benzodiazepines Scrn (NEGATIVE) U Oth Cocaine Metabols (NEGATIVE) U Cannabinoids Screen (NEGATIVE) Hepatitis A IgM Ab (NEGATIVE) Hepatitis A Ab Total (NEGATIVE) Hep Bs Antigen (NEGATIVE) Hep B Core IgM Ab (NEGATIVE) Hepatitis C Antibody (NEGATIVE) Blood Type Blood Type Confirm Antibody Screen Crossmatch BBK History Checked 12/25/17 Range/Units 19:34 WBC (4.5-11.0) 10^3/ul RBC (3.5-6.1) 10^6/uL Hgb (12.0-16.0) g/dL Hct (36.0-48.0) % MCV (80.0-105.0) fl MCH (25.0-35.0) pg MCHC (31.0-37.0) g/dl RDW (11.5-14.5) % Plt Count (120.0-450.0) 10^3/uL MPV (7.0-11.0) fl Gran % (50.0-68.0) % Lymph % (Auto) (22.0-35.0) % Bond % (Auto) (1.0-6.0) % Eos % (Auto) (1.5-5.0) % Baso % (Auto) (0.0-3.0) % Gran # (1.4-6.5) Lymph # (Auto) (1.2-3.4) Bond # (Auto) (0.1-0.6) Eos # (Auto) (0.0-0.7) Baso # (Auto) (0.0-2.0) K/mm3 Differential Comment Haptoglobin (30.0-200.0) mg/dL PT (9.4-12.5) SECONDS INR pCO2 (35-45) mm/Hg pO2 (80-100) mm/Hg HCO3 (21-28) mmol/L ABG pH (7.35-7.45) ABG Total CO2 (22-28) mmol.L ABG O2 Saturation (95-98) % ABG O2 Content (15-23) ML/dl ABG Base Excess (-2.0-3.0) mmol/L ABG Hemoglobin (11.7-17.4) g/dL ABG Carboxyhemoglobin (0.5-1.5) % POC ABG HHb (Measured) (0-5) % ABG Methemoglobin (0.0-3.0) % ABG O2 Capacity (16-24) mL/dl Hgb O2 Saturation (95.0-98.0) % FiO2 % Sodium (132-148) mmol/L Potassium (3.6-5.0) mmol/L Chloride (98-107) mmol/L Carbon Dioxide (21-33) mmol/L Anion Gap (10-20) BUN (7-21) mg/dL Creatinine (0.7-1.2) mg/dl Est GFR ( Amer) Est GFR (Non-Af Amer) POC Glucose (mg/dL) (65-110) mg/dL Random Glucose (70-110) mg/dL Calcium (8.4-10.5) mg/dL Phosphorus (2.5-4.5) mg/dL Magnesium (1.7-2.2) mg/dL Iron (45-180) ug/dL TIBC (265-497) ug/dL % Saturation (20-55) % Transferrin (206-381) mg/dL Total Bilirubin (0.2-1.3) mg/dL AST (14-36) U/L ALT (7-56) U/L Alkaline Phosphatase (38-126) U/L Ammonia (9-33) umol/L Troponin I ng/mL Total Protein (5.8-8.3) g/dL Albumin (3.0-4.8) g/dL Globulin gm/dL Albumin/Globulin Ratio (1.1-1.8) Amylase (35-125) U/L Lipase (23-300) U/L CA 125 Antigen (0-35) U/mL Procalcitonin (0.19-0.49) NG/ML TSH 3rd Generation (0.46-4.68) mIU/mL Prolactin (3.0-18.9) ng/mL Urine Color Light yellow (YELLOW) Urine Appearance Clear (CLEAR) Urine pH 6.0 (4.7-8.0) Ur Specific [place] 1.010 (1.005-1.035) Urine Protein Negative (<30 mg/dL) mg/dL Urine Glucose (UA) Negative (NEGATIVE) mg/dL Urine Ketones Negative (NEGATIVE) mg/dL Urine Blood Negative (NEGATIVE) Urine Nitrate Negative (NEGATIVE) Urine Bilirubin Negative (NEGATIVE) Urine Urobilinogen 0.2 (<1 E.U./dL) E.U./dL Ur Leukocyte Esterase Negative (NEGATIVE) Alverto/uL Urine Opiates Screen (NEGATIVE) Urine Methadone Screen (NEGATIVE) Ur Barbiturates Screen (NEGATIVE) Ur Phencyclidine Scrn (NEGATIVE) Ur Amphetamines Screen (NEGATIVE) U Benzodiazepines Scrn (NEGATIVE) U Oth Cocaine Metabols (NEGATIVE) U Cannabinoids Screen (NEGATIVE) Hepatitis A IgM Ab (NEGATIVE) Hepatitis A Ab Total (NEGATIVE) Hep Bs Antigen (NEGATIVE) Hep B Core IgM Ab (NEGATIVE) Hepatitis C Antibody (NEGATIVE) Blood Type Blood Type Confirm Antibody Screen Crossmatch BBK History Checked Laboratory Results - last 24 hr 12/25/17 12/25/17 12/25/17 19:34 20:03 20:19 WBC RBC Hgb Hct MCV MCH MCHC RDW Plt Count MPV Gran % Lymph % (Auto) Bond % (Auto) Eos % (Auto) Baso % (Auto) Gran # Lymph # (Auto) Bond # (Auto) Eos # (Auto) Baso # (Auto) Differential Comment Haptoglobin PT INR pCO2 41 pO2 110.0 H HCO3 21.6 ABG pH 7.33 L ABG Total CO2 22.9 ABG O2 Saturation 99.6 H ABG O2 Content 10.9 L ABG Base Excess -4.0 L ABG Hemoglobin 7.8 L ABG Carboxyhemoglobin 1.4 POC ABG HHb (Measured) 0.4 ABG Methemoglobin 0.7 ABG O2 Capacity 10.9 L Hgb O2 Saturation 97.4 FiO2 21.0 Sodium Potassium Chloride Carbon Dioxide Anion Gap BUN Creatinine Est GFR ( Amer) Est GFR (Non-Af Amer) POC Glucose (mg/dL) 284 H Random Glucose Calcium Phosphorus Magnesium Iron TIBC % Saturation Transferrin Total Bilirubin AST ALT Alkaline Phosphatase Ammonia Troponin I Total Protein Albumin Globulin Albumin/Globulin Ratio Amylase Lipase CA 125 Antigen Procalcitonin TSH 3rd Generation Prolactin Urine Color Light yellow Urine Appearance Clear Urine pH 6.0 Ur Specific [place] 1.010 Urine Protein Negative Urine Glucose (UA) Negative Urine Ketones Negative Urine Blood Negative Urine Nitrate Negative Urine Bilirubin Negative Urine Urobilinogen 0.2 Ur Leukocyte Esterase Negative Urine Opiates Screen Urine Methadone Screen Ur Barbiturates Screen Ur Phencyclidine Scrn Ur Amphetamines Screen U Benzodiazepines Scrn U Oth Cocaine Metabols U Cannabinoids Screen Hepatitis A IgM Ab Hepatitis A Ab Total Hep Bs Antigen Hep B Core IgM Ab Hepatitis C Antibody Blood Type Blood Type Confirm Antibody Screen Crossmatch BBK History Checked 12/25/17 12/25/17 12/25/17 21:30 21:30 21:30 WBC RBC Hgb Hct MCV MCH MCHC RDW Plt Count MPV Gran % Lymph % (Auto) Bond % (Auto) Eos % (Auto) Baso % (Auto) Gran # Lymph # (Auto) Bond # (Auto) Eos # (Auto) Baso # (Auto) Differential Comment Haptoglobin PT INR pCO2 pO2 HCO3 ABG pH ABG Total CO2 ABG O2 Saturation ABG O2 Content ABG Base Excess ABG Hemoglobin ABG Carboxyhemoglobin POC ABG HHb (Measured) ABG Methemoglobin ABG O2 Capacity Hgb O2 Saturation FiO2 Sodium Potassium Chloride Carbon Dioxide Anion Gap BUN Creatinine Est GFR ( Amer) Est GFR (Non-Af Amer) POC Glucose (mg/dL) Random Glucose Calcium Phosphorus 3.1 Magnesium 1.7 Iron TIBC % Saturation Transferrin Total Bilirubin AST ALT Alkaline Phosphatase Ammonia 37 H Troponin I < 0.01 Total Protein Albumin Globulin Albumin/Globulin Ratio Amylase 367 H Lipase 549 H CA 125 Antigen Procalcitonin TSH 3rd Generation Prolactin 29.2 H Urine Color Urine Appearance Urine pH Ur Specific [place] Urine Protein Urine Glucose (UA) Urine Ketones Urine Blood Urine Nitrate Urine Bilirubin Urine Urobilinogen Ur Leukocyte Esterase Urine Opiates Screen Urine Methadone Screen Ur Barbiturates Screen Ur Phencyclidine Scrn Ur Amphetamines Screen U Benzodiazepines Scrn U Oth Cocaine Metabols U Cannabinoids Screen Hepatitis A IgM Ab Hepatitis A Ab Total Hep Bs Antigen Hep B Core IgM Ab Hepatitis C Antibody Blood Type Blood Type Confirm Antibody Screen Crossmatch BBK History Checked 12/25/17 12/25/17 12/26/17 21:49 23:09 03:00 WBC RBC Hgb Hct MCV MCH MCHC RDW Plt Count MPV Gran % Lymph % (Auto) Bond % (Auto) Eos % (Auto) Baso % (Auto) Gran # Lymph # (Auto) Bond # (Auto) Eos # (Auto) Baso # (Auto) Differential Comment Haptoglobin PT INR pCO2 pO2 HCO3 ABG pH ABG Total CO2 ABG O2 Saturation ABG O2 Content ABG Base Excess ABG Hemoglobin ABG Carboxyhemoglobin POC ABG HHb (Measured) ABG Methemoglobin ABG O2 Capacity Hgb O2 Saturation FiO2 Sodium Potassium Chloride Carbon Dioxide Anion Gap BUN Creatinine Est GFR ( Amer) Est GFR (Non-Af Amer) POC Glucose (mg/dL) 269 H Random Glucose Calcium Phosphorus Magnesium Iron TIBC % Saturation Transferrin Total Bilirubin AST ALT Alkaline Phosphatase Ammonia Troponin I Total Protein Albumin Globulin Albumin/Globulin Ratio Amylase Lipase CA 125 Antigen Procalcitonin TSH 3rd Generation Prolactin Urine Color Urine Appearance Urine pH Ur Specific [place] Urine Protein Urine Glucose (UA) Urine Ketones Urine Blood Urine Nitrate Urine Bilirubin Urine Urobilinogen Ur Leukocyte Esterase Urine Opiates Screen Negative Urine Methadone Screen Negative Ur Barbiturates Screen Negative Ur Phencyclidine Scrn Negative Ur Amphetamines Screen Negative U Benzodiazepines Scrn Negative U Oth Cocaine Metabols Negative U Cannabinoids Screen Negative Hepatitis A IgM Ab Hepatitis A Ab Total Hep Bs Antigen Hep B Core IgM Ab Hepatitis C Antibody Blood Type A NEGATIVE Blood Type Confirm Antibody Screen Negative Crossmatch See Detail BBK History Checked No verified bt 12/26/17 12/26/17 12/26/17 03:24 05:30 05:30 WBC 8.3 RBC 2.84 L Hgb 7.3 L Hct 22.0 L MCV 77.5 L MCH 25.7 MCHC 33.2 RDW 16.0 H Plt Count 116 L MPV 10.7 Gran % 89.1 H Lymph % (Auto) 9.1 L Bond % (Auto) 1.8 Eos % (Auto) 0.0 L Baso % (Auto) 0.0 Gran # 7.40 H Lymph # (Auto) 0.8 L Bond # (Auto) 0.2 Eos # (Auto) 0.0 Baso # (Auto) 0.00 Differential Comment Haptoglobin PT INR pCO2 pO2 HCO3 ABG pH ABG Total CO2 ABG O2 Saturation ABG O2 Content ABG Base Excess ABG Hemoglobin ABG Carboxyhemoglobin POC ABG HHb (Measured) ABG Methemoglobin ABG O2 Capacity Hgb O2 Saturation FiO2 Sodium 148 Potassium 3.3 L Chloride 117 H Carbon Dioxide 22 Anion Gap 12 BUN 31 H Creatinine 0.8 Est GFR ( Amer) > 60 Est GFR (Non-Af Amer) > 60 POC Glucose (mg/dL) Random Glucose 126 H Calcium 6.4 L* Phosphorus 2.9 Magnesium 1.5 L Iron TIBC % Saturation Transferrin Total Bilirubin 0.7 AST > 750 H D ALT 788 H Alkaline Phosphatase 707 H D Ammonia Troponin I < 0.01 Total Protein 4.7 L Albumin 2.1 L Globulin 2.6 Albumin/Globulin Ratio 0.8 L Amylase Lipase CA 125 Antigen Procalcitonin TSH 3rd Generation Prolactin Urine Color Urine Appearance Urine pH Ur Specific [place] Urine Protein Urine Glucose (UA) Urine Ketones Urine Blood Urine Nitrate Urine Bilirubin Urine Urobilinogen Ur Leukocyte Esterase Urine Opiates Screen Urine Methadone Screen Ur Barbiturates Screen Ur Phencyclidine Scrn Ur Amphetamines Screen U Benzodiazepines Scrn U Oth Cocaine Metabols U Cannabinoids Screen Hepatitis A IgM Ab Hepatitis A Ab Total Hep Bs Antigen Hep B Core IgM Ab Hepatitis C Antibody Blood Type Blood Type Confirm A NEGATIVE Antibody Screen Crossmatch BBK History Checked 12/26/17 12/26/17 12/26/17 05:30 05:30 06:30 WBC RBC Hgb Hct MCV MCH MCHC RDW Plt Count MPV Gran % Lymph % (Auto) Bond % (Auto) Eos % (Auto) Baso % (Auto) Gran # Lymph # (Auto) Bond # (Auto) Eos # (Auto) Baso # (Auto) Differential Comment See pathology report Haptoglobin PT INR pCO2 pO2 HCO3 ABG pH ABG Total CO2 ABG O2 Saturation ABG O2 Content ABG Base Excess ABG Hemoglobin ABG Carboxyhemoglobin POC ABG HHb (Measured) ABG Methemoglobin ABG O2 Capacity Hgb O2 Saturation FiO2 Sodium Potassium Chloride Carbon Dioxide Anion Gap BUN Creatinine Est GFR ( Amer) Est GFR (Non-Af Amer) POC Glucose (mg/dL) Random Glucose Calcium Phosphorus Magnesium Iron TIBC % Saturation Transferrin Total Bilirubin AST ALT Alkaline Phosphatase Ammonia Troponin I Total Protein Albumin Globulin Albumin/Globulin Ratio Amylase Lipase CA 125 Antigen Procalcitonin 0.99 H TSH 3rd Generation Prolactin Urine Color Urine Appearance Urine pH Ur Specific [place] Urine Protein Urine Glucose (UA) Urine Ketones Urine Blood Urine Nitrate Urine Bilirubin Urine Urobilinogen Ur Leukocyte Esterase Urine Opiates Screen Urine Methadone Screen Ur Barbiturates Screen Ur Phencyclidine Scrn Ur Amphetamines Screen U Benzodiazepines Scrn U Oth Cocaine Metabols U Cannabinoids Screen Hepatitis A IgM Ab Negative Hepatitis A Ab Total Hep Bs Antigen Negative Hep B Core IgM Ab Negative Hepatitis C Antibody Negative Blood Type Blood Type Confirm Antibody Screen Crossmatch BBK History Checked 12/26/17 12/26/17 12/26/17 08:06 09:10 09:10 WBC RBC Hgb Hct MCV MCH MCHC RDW Plt Count MPV Gran % Lymph % (Auto) Bond % (Auto) Eos % (Auto) Baso % (Auto) Gran # Lymph # (Auto) Bond # (Auto) Eos # (Auto) Baso # (Auto) Differential Comment Haptoglobin PT 19.6 H INR 1.69 pCO2 pO2 HCO3 ABG pH ABG Total CO2 ABG O2 Saturation ABG O2 Content ABG Base Excess ABG Hemoglobin ABG Carboxyhemoglobin POC ABG HHb (Measured) ABG Methemoglobin ABG O2 Capacity Hgb O2 Saturation FiO2 Sodium Potassium Chloride Carbon Dioxide Anion Gap BUN Creatinine Est GFR ( Amer) Est GFR (Non-Af Amer) POC Glucose (mg/dL) 126 H Random Glucose Calcium Phosphorus Magnesium Iron TIBC % Saturation Transferrin Total Bilirubin AST ALT Alkaline Phosphatase Ammonia Troponin I Total Protein Albumin Globulin Albumin/Globulin Ratio Amylase Lipase CA 125 Antigen Procalcitonin TSH 3rd Generation 2.98 Prolactin Urine Color Urine Appearance Urine pH Ur Specific [place] Urine Protein Urine Glucose (UA) Urine Ketones Urine Blood Urine Nitrate Urine Bilirubin Urine Urobilinogen Ur Leukocyte Esterase Urine Opiates Screen Urine Methadone Screen Ur Barbiturates Screen Ur Phencyclidine Scrn Ur Amphetamines Screen U Benzodiazepines Scrn U Oth Cocaine Metabols U Cannabinoids Screen Hepatitis A IgM Ab Hepatitis A Ab Total Hep Bs Antigen Hep B Core IgM Ab Hepatitis C Antibody Blood Type Blood Type Confirm Antibody Screen Crossmatch BBK History Checked 12/26/17 12/26/17 12/26/17 09:35 11:00 11:00 WBC RBC Hgb Hct MCV MCH MCHC RDW Plt Count MPV Gran % Lymph % (Auto) Bond % (Auto) Eos % (Auto) Baso % (Auto) Gran # Lymph # (Auto) Bond # (Auto) Eos # (Auto) Baso # (Auto) Differential Comment Haptoglobin PT INR pCO2 pO2 HCO3 ABG pH ABG Total CO2 ABG O2 Saturation ABG O2 Content ABG Base Excess ABG Hemoglobin ABG Carboxyhemoglobin POC ABG HHb (Measured) ABG Methemoglobin ABG O2 Capacity Hgb O2 Saturation FiO2 Sodium Potassium Chloride Carbon Dioxide Anion Gap BUN Creatinine Est GFR ( Amer) Est GFR (Non-Af Amer) POC Glucose (mg/dL) Random Glucose Calcium Phosphorus Magnesium Iron TIBC % Saturation Transferrin Total Bilirubin AST ALT Alkaline Phosphatase Ammonia Troponin I 0.02 D Total Protein Albumin Globulin Albumin/Globulin Ratio Amylase Lipase CA 125 Antigen 21.4 Procalcitonin TSH 3rd Generation Prolactin Urine Color Urine Appearance Urine pH Ur Specific [place] Urine Protein Urine Glucose (UA) Urine Ketones Urine Blood Urine Nitrate Urine Bilirubin Urine Urobilinogen Ur Leukocyte Esterase Urine Opiates Screen Urine Methadone Screen Ur Barbiturates Screen Ur Phencyclidine Scrn Ur Amphetamines Screen U Benzodiazepines Scrn U Oth Cocaine Metabols U Cannabinoids Screen Hepatitis A IgM Ab Negative Hepatitis A Ab Total Antibody neg Hep Bs Antigen Negative Hep B Core IgM Ab Hepatitis C Antibody Negative Blood Type Blood Type Confirm Antibody Screen Crossmatch BBK History Checked 12/26/17 12/26/17 12/26/17 13:00 13:00 14:55 WBC RBC Hgb Hct MCV MCH MCHC RDW Plt Count MPV Gran % Lymph % (Auto) Bond % (Auto) Eos % (Auto) Baso % (Auto) Gran # Lymph # (Auto) Bond # (Auto) Eos # (Auto) Baso # (Auto) Differential Comment Haptoglobin 55.8 PT INR pCO2 pO2 HCO3 ABG pH ABG Total CO2 ABG O2 Saturation ABG O2 Content ABG Base Excess ABG Hemoglobin ABG Carboxyhemoglobin POC ABG HHb (Measured) ABG Methemoglobin ABG O2 Capacity Hgb O2 Saturation FiO2 Sodium 150 H Potassium 3.5 L Chloride 119 H Carbon Dioxide 25 Anion Gap 10 BUN 27 H Creatinine 0.9 Est GFR ( Amer) > 60 Est GFR (Non-Af Amer) > 60 POC Glucose (mg/dL) Random Glucose 146 H Calcium 6.2 L* Phosphorus Magnesium Iron 55 TIBC 174 L % Saturation 32 Transferrin 100.93 L Total Bilirubin 1.3 AST 975 H D ALT 680 H Alkaline Phosphatase 576 H Ammonia Troponin I Total Protein 4.5 L Albumin 2.1 L Globulin 2.4 Albumin/Globulin Ratio 0.9 L Amylase Lipase CA 125 Antigen Procalcitonin TSH 3rd Generation Prolactin Urine Color Urine Appearance Urine pH Ur Specific [place] Urine Protein Urine Glucose (UA) Urine Ketones Urine Blood Urine Nitrate Urine Bilirubin Urine Urobilinogen Ur Leukocyte Esterase Urine Opiates Screen Urine Methadone Screen Ur Barbiturates Screen Ur Phencyclidine Scrn Ur Amphetamines Screen U Benzodiazepines Scrn U Oth Cocaine Metabols U Cannabinoids Screen Hepatitis A IgM Ab Hepatitis A Ab Total Hep Bs Antigen Hep B Core IgM Ab Hepatitis C Antibody Blood Type Blood Type Confirm Antibody Screen Crossmatch BBK History Checked 12/26/17 16:00 WBC 4.5 D RBC 2.36 L Hgb 6.2 L* Hct 18.4 L* MCV 78.0 L MCH 26.3 MCHC 33.7 RDW 16.3 H Plt Count 89 L MPV 11.7 H Gran % 89.8 H Lymph % (Auto) 8.9 L Bond % (Auto) 1.3 Eos % (Auto) 0.0 L Baso % (Auto) 0.0 Gran # 4.03 Lymph # (Auto) 0.4 L Bond # (Auto) 0.1 Eos # (Auto) 0.0 Baso # (Auto) 0.00 Differential Comment Haptoglobin PT INR pCO2 pO2 HCO3 ABG pH ABG Total CO2 ABG O2 Saturation ABG O2 Content ABG Base Excess ABG Hemoglobin ABG Carboxyhemoglobin POC ABG HHb (Measured) ABG Methemoglobin ABG O2 Capacity Hgb O2 Saturation FiO2 Sodium Potassium Chloride Carbon Dioxide Anion Gap BUN Creatinine Est GFR ( Amer) Est GFR (Non-Af Amer) POC Glucose (mg/dL) Random Glucose Calcium Phosphorus Magnesium Iron TIBC % Saturation Transferrin Total Bilirubin AST ALT Alkaline Phosphatase Ammonia Troponin I Total Protein Albumin Globulin Albumin/Globulin Ratio Amylase Lipase CA 125 Antigen Procalcitonin TSH 3rd Generation Prolactin Urine Color Urine Appearance Urine pH Ur Specific [place] Urine Protein Urine Glucose (UA) Urine Ketones Urine Blood Urine Nitrate Urine Bilirubin Urine Urobilinogen Ur Leukocyte Esterase Urine Opiates Screen Urine Methadone Screen Ur Barbiturates Screen Ur Phencyclidine Scrn Ur Amphetamines Screen U Benzodiazepines Scrn U Oth Cocaine Metabols U Cannabinoids Screen Hepatitis A IgM Ab Hepatitis A Ab Total Hep Bs Antigen Hep B Core IgM Ab Hepatitis C Antibody Blood Type Blood Type Confirm Antibody Screen Crossmatch BBK History Checked EKG/Cardiology Studies: Cardiology / EKG Studies 12/25/17 22:30 EKG [ELECTROCARDIOGRAM] Q6H Comment: Reason For Exam: a fib, hypotension edis-tachy arrhythmia 12/26/17 07:00 EKG [ELECTROCARDIOGRAM] Routine Comment: Reason For Exam: syncope Critical Care Progress Note - Nutrition Nutrition: Nutrition Category Date Time Status NPO Diet [DIET] Diets 12/26/17 Dinner Ordered Addendum Addendum: 12/26/17 17:36 ICU Attending Addendum: Patient seen and examined. Case reviewed on round with housestaff. Agree with resident note above with the following additions/exceptions: 42 with mental retardation admitted with a seizure like episode, hypothermia and hypoglycemia now in shock and bradycardic. It is unclear what the precipitating cause of she shock is. No clear source for sepsis but empiric abx given and cultures pending. ECHO not significant for heart failure. Relative adrenal insuff is possible and we will give solucortef while awaiting cortisol. TSH normal. She is malnourished as evident by her low albumin and low weight. It is possible that this is causing her hypoglycemia is her glycogen storage is depleted. Hypoglycemia can result in hypothermia and bradycardia. Cardio is on board as well. For now, cont levophed titrate to systolic > 90. She has recevied 3L IVF which is sufficient for her given her low weight. Cont steroids. F/u cultures. Cont D5 drip with frequent fiddlesticks. Neuro on board, f.u EEG Consult nutrition for diet recs and possible refeeding syndrome risk Consult Social work with concern for abuse Rest of care as noted above. Quinton Ruffin MD Vice President Business & Corporate Development Critical care time : 40 mins
--- NOTE | 2017-12-26 13:28 | CON ---
Copied To: Giancarlo Rizo MD Attending MD: Giancarlo Rizo MD DATE: 12/26/2017 REQUESTING PHYSICIAN: Dr. Berrios. REASON FOR CONSULTATION: I have been asked to see this 42-year-old female with mental retardation who was admitted to the hospital after an episode of unresponsiveness and seizures. There is no history of any syncope or head trauma. EMS was called and the patient was hypoglycemic with blood sugar in the 40s. She had a witnessed seizure by EMS at home. I have been asked to see this patient for elevated liver enzymes. CT scan of the abdomen and pelvis performed in the emergency room reveals anasarca with large amount of ascites in the abdomen and pelvis. There is also mesenteric edema. The patient is nonverbal. History is obtained from the chart. PAST MEDICAL HISTORY: Notable for mental retardation. SOCIAL HISTORY: She apparently lives at home with her mother. There is no history of alcohol use, drug use or cigarette smoking. REVIEW OF SYSTEMS: A 14-point review of systems is unobtainable. PHYSICAL EXAMINATION: GENERAL: Cachectic female lying in bed, eyes open, but nonverbal. VITAL SIGNS: Reveal temperature of 97.2, blood pressure 93/59, heart rate of 33. HEENT: Reveal sclerae to be white. Conjunctivae pink. NECK: Supple. CHEST: Revealed decreased breath sounds. HEART: Reveals bradycardia. ABDOMEN: Softly distended, nontender. EXTREMITIES: Show no edema with muscle wasting. LABORATORY DATA: Reveal white blood cell count 8.3, hemoglobin 7.3. Chemistries reveal on admission to the hospital, AST 1576, ALT 1103, alkaline phosphatase of 924, BUN 41, creatinine 0.7. This morning, her BUN is 31, creatinine 0.8, potassium 3.3, AST is greater than 750, ALT 788, alkaline phosphatase 707, total bilirubin is 0.7. Tox screen is negative. Acetaminophen level was less than 10. Hepatitis serology is pending. IMPRESSION: An unfortunate 42-year-old mentally-retarded female admitted to the hospital with altered mental status, seizure activity, hypoglycemia with elevated AST, ALT. I suspect that the elevated AST, ALT, alk phos are from shock liver as the patient did have a period of unresponsiveness. Her liver enzymes are trending downwards. CT scan of the abdomen and pelvis shows moderate amount of ascites, anasarca and mesenteric edema. The etiology includes protein-calorie malnutrition as her albumin on admission to the hospital was only 1.7. One must also rule out proteinuria. Her spot protein on urinalysis was negative. One must also rule out [place] syndrome with ovarian cancer. The CAT scan was a limited study. RECOMMENDATIONS: 1. Check CA-125 level. 2. Would check a pelvic and transvaginal ultrasound when the patient becomes more stable. Giancarlo Rizo MD
[2017-12-26 13:52] LABS: IRON 55 ug/dL (45-180)
[2017-12-26 14:02] LABS: % IRON SATURATION 32 % (20-55); TOTAL IRON BINDING CAPACITY 174 ug/dL (265-497)
--- NOTE | 2017-12-26 14:08 | CARD ---
APPROVED REPORT Date of service: 12/26/2017 EXAM: Two-dimensional and M-mode echocardiogram with Doppler and color Doppler. INDICATION Atrial Fibrillation 2D DIMENSIONS RVDd2.5 (2.9-3.5cm)Left Atrium (2D)4.9 (1.6-4.0cm) IVSd0.8 (0.7-1.1cm)LVDd4.0 (3.9-5.9cm) PWd0.7 (0.7-1.1cm)LVDs2.9 (2.5-4.0cm) FS (%) 27.2 %LVEF (%)53.6 (>50%) M-Mode DIMENSIONS Aortic Root2.40 (2.2-3.7cm)Aortic Cusp Exc.1.40 (1.5-2.0cm) Aortic Valve AoV Peak Vgozmnba567.0cm/Светлана Peak GR.4mmHg Mitral Valve MV E Ywuhdqhh01.4cm/sMV A Ljllxjsd83.0cm/sE/A ratio2.3 TDI E/Lateral E'0.0E/Medial E'0.0 Pulmonary Valve PV Peak Mubmcjut97.3cm/sPV Peak Grad.1mmHg Tricuspid Valve TR Peak Xmoyqqdk101fq/sRAP [id number] Peak Gr.47mmHg [id number] LEFT VENTRICLE The left ventricle is normal size. There is normal left ventricular wall thickness. The left ventricular function is normal. The left ventricular ejection fraction is within the normal range. There is normal LV segmental wall motion. The left ventricular diastolic function is normal. RIGHT VENTRICLE The right ventricle is normal size. There is normal right ventricular wall thickness. The right ventricular systolic function is normal. ATRIA The left atrium is moderately dilated. The right atrium is moderately dilated. AORTIC VALVE The aortic valve is normal in structure. No aortic regurgitation is present. There is no aortic valvular stenosis. MITRAL VALVE The mitral valve is mildly thickened. Mitral regurgitation is moderate. There is no mitral valve stenosis. TRICUSPID VALVE The tricuspid valve is normal in structure. There is moderate tricuspid regurgitation. There is moderate to severe pulmonary hypertension. PULMONIC VALVE The pulmonary valve is normal in structure. There is no pulmonic valvular regurgitation. GREAT VESSELS The aortic root is normal in size. The IVC is dilated. PERICARDIAL EFFUSION There is small left pleural effusion. There is no pericardial effusion. <Conclusion> The left ventricle is normal size. There is normal left ventricular wall thickness. The left ventricular function is normal. The left ventricular ejection fraction is within the normal range. There is normal LV segmental wall motion. The left ventricular diastolic function is normal. Mitral regurgitation is moderate. There is moderate tricuspid regurgitation. There is moderate to severe pulmonary hypertension.
[2017-12-26 15:58] LABS: GRAN # 4.03 (1.4-6.5); GRAN % 89.8 % (50.0-68.0); LYMPH # 0.4 (1.2-3.4); LYMPH % 8.9 % (22.0-35.0); MEAN CORPUSCULAR HEMOGLOBIN 26.3 pg (25.0-35.0); MEAN CORPUSCULAR HGB CONC 33.7 g/dl (31.0-37.0); MEAN PLATELET VOLUME 11.7 fl (7.0-11.0); MONO # 0.1 (0.1-0.6); MONO % 1.3 % (1.0-6.0); RBC 2.36 10^6/uL (3.5-6.1); RED CELL DISTRIBUTION WIDTH 16.3 % (11.5-14.5)
--- NOTE | 2017-12-26 15:58 | CP.PCM.PN ---
Subjective - Date & Time of Evaluation Date of Evaluation: 12/26/17 Time of Evaluation: 15:56 Objective - Vital Signs/Intake and Output Vital Signs (last 24 hours): Temp Pulse Resp BP Pulse Ox 97.2 F L 45 L 13 93/59 L 95 12/26/17 05:50 12/26/17 05:50 12/26/17 05:50 12/26/17 05:45 12/26/17 05:50 Intake and Output: 12/26/17 12/26/17 06:59 18:59 Intake Total 3534 Output Total 725 Balance 2809 - Medications Medications: Current Medications Heparin Sodium (Porcine) (Heparin) 5,000 units SC Q12 NAS[facility] PRN Reason: Protocol Norepinephrine Bitartrate 8 mg (/ Sodium Chloride) 508 mls @ 15.24 mls/hr IV .Q24H PRN; Protocol; 4 MCG/MIN PRN Reason: TITRATE PER MD ORDER Last Titration: 12/26/17 01:30 Dose: 4 mcg/min, 15.24 mls/hr Piperacillin Sod/Tazobactam Sod (Zosyn 3.375 In Ns 100ml) 100 mls @ 200 mls/hr IVPB Q6 NASH PRN Reason: Protocol Stop: 01/01/18 20:33 Last Admin: 12/26/17 06:42 Dose: 200 mls/hr Vancomycin HCl (Vancomycin 1gm) 1 gm in 250 mls @ 167 mls/hr IVPB Q12 NASH PRN Reason: Protocol Last Admin: 12/26/17 10:46 Dose: Not Given Levetiracetam 500 mg/ Sodium (Chloride) 105 mls @ 460 mls/hr IV Q12 NASH Dextrose/Sodium Chloride (Dextrose 5%/0.45% Ns 1000 Ml) 1,000 mls @ 125 mls/hr IV .Q8H NASH Last Admin: 12/26/17 14:31 Dose: 125 mls/hr Pantoprazole Sodium (Protonix Inj) 40 mg IVP DAILY NASH Last Admin: 12/26/17 09:18 Dose: 40 mg - Labs Labs: 12/26/17 05:30 12/26/17 05:30 PT 19.6 SECONDS (9.4-12.5) H 12/26/17 09:10 INR 1.69 12/26/17 09:10 APTT 27.2 Seconds (25.1-36.5) 12/25/17 16:45
[2017-12-26 16:04] LABS: HEMOGLOBIN 6.2 g/dL (12.0-16.0); WHITE BLOOD COUNT 4.5 10^3/ul (4.5-11.0)
--- NOTE | 2017-12-26 16:28 | CON ---
Copied To: Bk Newton MD Attending MD: Bk Newton MD DATE: 12/26/2017 REASON FOR CONSULTATION: Atrial fibrillation. HISTORY OF PRESENT ILLNESS: The patient is a 42-year-old mentally challenged female who lives with her mom and was brought in because of unresponsiveness. According to the mom, the patient was sitting and staring and when was activated, EMS told the mother that her daughter had the seizure, mother herself did not witness any chronic orthotic movements and she is unaware of any prior history of seizures. The patient was noticed to be hypoglycemic and the mother denies having any diabetic medications for the patient or for the mother herself at home and nobody else lives with them and the mom takes full care of her daughter and she takes her to the primary physician, Dr. Mariano in [place] and the mother denies any hospitalization either in the recent or the remote past for any medical problems. The patient's mother claims that the patient eats three or four meals a day and she does have enough Government financial support to help maintain reasonable living conditions for the patient and for the mother herself. Mother denies that the patient has fallen or assaulted by anyone. The patient was noted to be hypotensive requiring Levophed infusion; initially was in slow atrial fibrillation and now converted to sinus bradycardia. The mother is unaware of any prior cardiac history. SOCIAL HISTORY: Nonsmoker, nondrinker. She lives with her mother who takes full care of her. MEDICATIONS: Heparin 5000 units subcutaneously twice a day, Levophed infusion 4 mcg/minute, vancomycin 1 g intravenously twice a day, Zosyn 3.375 g intravenously every 6 hours. PHYSICAL EXAMINATION: GENERAL: The patient is a middle-aged female who does not appear to be in acute distress, but she is . VITAL SIGNS: Blood pressure 93/59, heart rate 45, temperature 97.2, respirations 13. HEENT: Right eye brow bruising. CHEST: Diminished breath sounds bilaterally. HEART: S1 and S2 regular. ABDOMEN: Soft. EXTREMITIES: Significant muscle wasting. LABORATORY DATA: Hemoglobin and hematocrit today is 7.3 and 22, white count 8.3, platelet count 116,000. Today's SMA-7: Sodium 148, potassium 3.3, chloride 117, CO2 22, glucose 126. BUN 31, creatinine 0.8, calcium 6.4. AST and ALT are 750 and 788, alkaline phosphatase 707, amylase 367, lipase 549. Troponin 0.01 and 0.02. Ammonia is elevated at 37. Magnesium is below normal at 1.5. INR is 1.69. Urine drug screen is negative. Initial EKG revealed atrial fibrillation with slow ventricular response. Subsequent EKG reveals sinus bradycardia at rate of 55. Chest, abdomen and pelvis CT scan, left-sided rib fracture with atelectasis or pneumonia in the left lower lobe. Head CT scan without contrast, no acute intracranial findings, mild anterior scalp and periorbital edema. Abdomen ultrasound, atrophied liver, diffuse increased echogenicity in the liver may reflect hepatic steatosis. Bilateral renal atrophy. Urinalysis is unremarkable. ASSESSMENT: 1. Hypoglycemia. 2. Pancreatitis. 3. Hepatitis. 4. Hypokalemia and hypomagnesemia. 5. Hypotension, rule out underlying sepsis. 6. Right eyebrow bruising with evidence of mild anterior scalp and periorbital edema, consider a fall. RECOMMENDATIONS: Case was discussed with crop roller and with the hospitalist. Continue subcutaneous heparin. Continue Levophed infusion. Optimize hydration. Start enteral nutrition. Supplement potassium and magnesium. Obtain a bedside echocardiogram study as well as TSH level. Bk Newton MD
[2017-12-26 16:32] LABS: TRANSFERRIN 100.93 mg/dL (206-381)
[2017-12-26 17:04] LABS: HEPATITIS B SURFACE AG Negative (NEGATIVE)
[2017-12-26 17:14] LABS: HEPATITIS A IGM NEGATIVE (NEGATIVE)
[2017-12-26 17:19] LABS: ALB/GLOB RATIO 0.9 (1.1-1.8); ALBUMIN 2.1 g/dL (3.0-4.8); ALT/SGPT 680 U/L (7-56); AST/SGOT 975 U/L (14-36); BLOOD UREA NITROGEN 27 mg/dL (7-21); CALCIUM 6.2 mg/dL (8.4-10.5); GFR NON-AFRICAN AMERICAN > 60
[2017-12-26 17:26] LABS: HEPATITIS C ANTIBODY NEGATIVE (NEGATIVE)
--- NOTE | 2017-12-26 17:55 | CARD ---
APPROVED REPORT Date of service: 12/25/2017 EKG Measurement Heart [id number] <Conclusion> Poor data quality, interpretation may be adversely affected Sinus bradycardia T wave abnormality, consider anterior ischemia Abnormal ECG
--- NOTE | 2017-12-26 19:47 | CP.PCM.CON ---
History of Present Illness - History of Present Illness History of Present Illness: 42 year old female with PMH of mental disability and developmental delay, cachexia was brought in to [facility] after she was noted have seizure-like activity and experienced a fall after that. As per the mother, she was doing well prior to the episode, did not have fevers, no vomiting, no diarrhea, no cough, no rhinorrhea, able to eat, conversant. EMS was called and at the scene, she was noted to have low sugars and was given 1 amp of D50 and was brought in for further evaluation. Currently the patient is still lethargic, under a warming blanket. She is noted to have hypotension. Infectious Diseases consult is requested to further evaluate and manage. Review of Systems - Review of Systems All systems: reviewed and no additional remarkable complaints except (as per HPI ) Past Patient History - Past Social History Smoking Status: Never Smoked - CARDIAC Hx Cardiac Disorders: No - PULMONARY Hx Respiratory Disorders: No - NEUROLOGICAL Hx Neurological Disorder: No - HEENT Hx HEENT Problems: No - RENAL Hx Chronic Kidney Disease: No - ENDOCRINE/METABOLIC Hx Endocrine Disorders: No - HEMATOLOGICAL/ONCOLOGICAL Hx Blood Disorders: No - INTEGUMENTARY Hx Dermatological Problems: No - MUSCULOSKELETAL/RHEUMATOLOGICAL Hx Musculoskeletal Disorders: No - GASTROINTESTINAL Hx Gastrointestinal Disorders: No - GENITOURINARY/GYNECOLOGICAL Hx Genitourinary Disorders: No - PSYCHIATRIC Hx Psychophysiologic Disorder: Yes Hx Substance Use: No Other/Comment: Developmental delay - SURGICAL HISTORY Hx Surgeries: No Meds Allergies/Adverse Reactions: Allergies Allergy/AdvReac Type Severity Reaction Status Date / Time No Known Allergies Allergy Verified 12/25/17 21:52 - Medications Medications: Current Medications Heparin Sodium (Porcine) (Heparin) 5,000 units SC BID NASH PRN Reason: Protocol Dextrose/Sodium Chloride (Dextrose 5%/0.45% Ns 1000 Ml) 1,000 mls @ 200 mls/hr IV .Q5H NASH Last Admin: 12/25/17 19:05 Dose: 200 mls/hr Norepinephrine Bitartrate 8 mg (/ Sodium Chloride) 508 mls @ 15.24 mls/hr IV .Q24H PRN; Protocol; 4 MCG/MIN PRN Reason: TITRATE PER MD ORDER Last Admin: 12/25/17 22:05 Dose: 2 mcg/min, 7.62 mls/hr Vancomycin HCl (Vancomycin 1gm) 1 gm in 250 mls @ 167 mls/hr IVPB DAILY [facility] PRN Reason: Protocol Piperacillin Sod/Tazobactam Sod (Zosyn 3.375 In Ns 100ml) 100 mls @ 200 mls/hr IVPB Q6 [facility] PRN Reason: Protocol Stop: 12/26/17 00:29 Pantoprazole Sodium (Protonix Inj) 40 mg IVP DAILY [facility] Physical Exam - Constitutional Appears: Cachectic, Chronically Ill - Head Exam Head Exam: NORMAL INSPECTION - Neck Exam Neck exam: Negative for: Meningismus - Respiratory Exam Respiratory Exam: Decreased Breath Sounds - Cardiovascular Exam Cardiovascular Exam: +S1, +S2 - GI/Abdominal Exam GI & Abdominal Exam: Soft. absent: Tenderness Results - Vital Signs Recent Vital Signs: Last Vital Signs Temp 90.0 F L 12/25/17 20:10 Pulse 84 12/25/17 20:10 Resp 16 12/25/17 20:10 BP 119/74 12/25/17 20:10 Pulse Ox 93 L 12/25/17 18:51 - Labs Result Diagrams: 12/26/17 16:00 12/26/17 14:55 Labs: Laboratory Results - last 24 hr 12/25/17 12/25/17 12/25/17 19:34 20:03 20:19 pCO2 41 pO2 110.0 H HCO3 21.6 ABG pH 7.33 L ABG Total CO2 22.9 ABG O2 Saturation 99.6 H ABG O2 Content 10.9 L ABG Base Excess -4.0 L ABG Hemoglobin 7.8 L ABG Carboxyhemoglobin 1.4 POC ABG HHb (Measured) 0.4 ABG Methemoglobin 0.7 ABG O2 Capacity 10.9 L Hgb O2 Saturation 97.4 FiO2 21.0 POC Glucose (mg/dL) 284 H Ammonia Amylase Lipase Urine Color Light yellow Urine Appearance Clear Urine pH 6.0 Ur Specific [place] 1.010 Urine Protein Negative Urine Glucose (UA) Negative Urine Ketones Negative Urine Blood Negative Urine Nitrate Negative Urine Bilirubin Negative Urine Urobilinogen 0.2 Ur Leukocyte Esterase Negative 12/25/17 12/25/17 21:30 21:30 pCO2 pO2 HCO3 ABG pH ABG Total CO2 ABG O2 Saturation ABG O2 Content ABG Base Excess ABG Hemoglobin ABG Carboxyhemoglobin POC ABG HHb (Measured) ABG Methemoglobin ABG O2 Capacity Hgb O2 Saturation FiO2 POC Glucose (mg/dL) Ammonia 37 H Amylase 367 H Lipase 549 H Urine Color Urine Appearance Urine pH Ur Specific [place] Urine Protein Urine Glucose (UA) Urine Ketones Urine Blood Urine Nitrate Urine Bilirubin Urine Urobilinogen Ur Leukocyte Esterase Assessment & Plan - Assessment and Plan (Free Text) Plan: Assessment Systemic Inflammatory Response Syndrome after seizure episode from hypoglycemia , R/O sepsis source to be determined in this patient with malnutrition mental disability and developmental delay cachexia Plan Started Vancomycin and Zosyn pending blood cx, urine cx reviewed CT A/P which showed anasarca but no specific source of infection follow up Neurology evaluation - would recommend MRI brain will check HIV test will monitor clinically
--- NOTE | 2017-12-26 20:42 | CP.PCM.PN ---
<Tenzin Welch - Last Filed: 12/26/17 20:39> Subjective - Date & Time of Evaluation Date of Evaluation: 12/26/17 Time of Evaluation: 20:39 - Subjective Subjective: Tenzin Welch DO PGY1 - Internal Medicine Job Trainer -Hospital Progress Note Patient was seen and examined at bedside in ICU this AM. Mother was present at bedside as well. HPI and baseline reviewed. Mother states patient is able to walk and toilet on her own; typically AAOx1 at baseline. Patient appears extremely lethargic however was arousable to pain this AM. Remainder of ROS unable to be assessed due to current state/ condition. Objective - Vital Signs/Intake and Output Vital Signs (last 24 hours): Temp Pulse Resp BP Pulse Ox 97.7 F 41 L 22 131/76 100 12/26/17 19:40 12/26/17 19:40 12/26/17 19:40 12/26/17 19:30 12/26/17 19:40 Intake and Output: 12/26/17 12/27/17 18:59 06:59 Intake Total 1605 332 Output Total 2300 Balance -695 332 - Medications Medications: Current Medications Heparin Sodium (Porcine) (Heparin) 5,000 units SC Q12 [facility] PRN Reason: Protocol Last Admin: 12/26/17 16:48 Dose: Not Given Hydrocortisone Sodium Succinate (Solu-Cortef) 50 mg IVP Q6 [facility] Last Admin: 12/26/17 17:46 Dose: 50 mg Norepinephrine Bitartrate 8 mg (/ Sodium Chloride) 508 mls @ 15.24 mls/hr IV .Q24H PRN; Protocol; 4 MCG/MIN PRN Reason: TITRATE PER MD ORDER Last Titration: 12/26/17 01:30 Dose: 4 mcg/min, 15.24 mls/hr Piperacillin Sod/Tazobactam Sod (Zosyn 3.375 In Ns 100ml) 100 mls @ 200 mls/hr IVPB Q6 [facility] PRN Reason: Protocol Stop: 01/01/18 20:33 Last Admin: 12/26/17 17:34 Dose: 200 mls/hr Vancomycin HCl (Vancomycin 1gm) 1 gm in 250 mls @ 167 mls/hr IVPB Q12 [facility] PRN Reason: Protocol Last Admin: 12/26/17 10:46 Dose: Not Given Levetiracetam 500 mg/ Sodium (Chloride) 105 mls @ 460 mls/hr IV Q12 [facility] Dextrose/Sodium Chloride (Dextrose 5%/0.45% Ns 1000 Ml) 1,000 mls @ 125 mls/hr IV .Q8H [facility] Last Admin: 12/26/17 14:31 Dose: 125 mls/hr Pantoprazole Sodium (Protonix Inj) 40 mg IVP DAILY [facility] Last Admin: 12/26/17 09:18 Dose: 40 mg - Labs Labs: 12/26/17 16:00 12/26/17 14:55 PT 19.6 SECONDS (9.4-12.5) H 12/26/17 09:10 INR 1.69 12/26/17 09:10 APTT 27.2 Seconds (25.1-36.5) 12/25/17 16:45 - Constitutional Appears: No Acute Distress, Younger Than Stated Age, Cachectic, Chronically Ill - Head Exam Additional comments: Echymosis appreciated under R eye L upper lid with significant swelling - Eye Exam Additional comments: Pupils unequal; L pupil w/ significant dilation compared to R. L pupil sluggish in reaction to light. - ENT Exam Additional comments: Poor dentition - Respiratory Exam Respiratory Exam: Clear to Ausculation Bilateral, NORMAL BREATHING PATTERN. absent: Respiratory Distress - Cardiovascular Exam Cardiovascular Exam: Bradycardia, REGULAR RHYTHM, +S1, +S2. absent: JVD, Rubs, Murmur - GI/Abdominal Exam GI & Abdominal Exam: Soft. absent: Tenderness - Extremities Exam Additional comments: UE and LE BL appear to be Atrophied; Distal pulses difficult to palpate; limbs do not appear to be ischemic - Neurological Exam Neurological Exam: Altered Additional comments: Arousable to painful stimulus; Babinski reflexes within normal limit - Skin Skin Exam: Dry, Intact Assessment and Plan - Assessment and Plan (Free Text) Assessment: 42F with PMH of developmental delay reported to have absence seizure and BL LE weakness prior to admission; was found to have altered mental status, significant hypotension, bradycardia, hypothermia, liver failure, and paroxysmal atrial fibrillation; admitted to ICU for further workup and management. AMS Etiologies: Post-Ictal State vs. Septic Encephalopathy vs. Hepatic Encephalopathy vs. ACS vs. Intoxication -CT Head on admission showed no acute intracranial abnormality. mild anterior scalp and periorbital edema. -Repeat CT head showed limited left greater right periorbital and bilateral frontal scattered soft tissue edema changes -CT Chest, Abdomen and Pelvis showed edema of mesenteric fat and ascites. left- sided rib fractures with atelectasis or pneumonia in the LLL -Chest X-Ray showed no acute findings -EKG on admission showed atrial fibrillation at 71 beats/min with prolonged QTc at 493 -EEG pending -Prolactin elevated at 29.2 -Ammonia mildly elevated at 37 -Four serial troponins negative -UA without signs of UTI -UDS and Acetaminophen levels negative -HIV, Procal, blood, urine and MRSA screen cultures pending -Continue emperic IV Vancomycin 1gm Q12 and IVPB Zosyn 3.375 Q6 -IV Keppra 1000mg ONCE -Neuro checks Q2 and fall/aspiration/seizure precautions -Neurology, ID, Cardiology, and GI consulted, all recommendations appreciated Acute Liver Failure Etiologies: Shock Liver vs. Inflammatory vs. Infectious vs. Drug-Induced -CT Chest, Abdomen and Pelvis showed findings as above -Abdominal US showed atrophied liver. diffuse increased echogenicity in liver may reflect hepatic steatosis however parenchymal infectious/inflammatory etiologies cannot be excluded. bilateral renal atrophy. -Total Bilirubin/AST/ALT/ALP: 0.7/>750/788/707 (downtrending) -Hepatitis and HIV workup pending -Acetaminophen levels negative -GI Consulted, all recommendations appreciated Hypotension -BP at 73/40 overnight and ranging in 80-90's/40-50s consistently -Unresponsive to two liters of NS bolus and Albumin 25% 12.5mg ONCE -Continue Levophed at 4mcg/min -Continue NS at 125mls/hr -Continue to monitor Q15min Microcytic Normochromic Anemia -H/H at 7.3/22.0 (9.0/27.2 on admission) -S/P two units FFP -Four units of pRBCs ordered in preparation for possible transfusion -Transvaginal US, CA-125, and FOBT pending -Continue to monitor with daily CBCs Paroxysmal Atrial Fibrillation -EKG on admission showed atrial fibrillation at 71 beats/min with prolonged QTc at 493 -Repeat EKGs showing NSR -[id number] score: 1 -Echocardiogram pending -Continue to monitor with telemetry monitoring Bradycardia -EKG and electronic device monitor showing sinus bradycardia in the 40-50 beats/min range -S/P Atropine 0.5mg -Continue to monitor with telemetry monitoring in ICU -Cardiology consulted, all recommendations appreciated Fractured Left Ribs 7-9 -CT Chest, Abdomen and Pelvis findings as above -Ribs X-Ray - fractures in the left 7th and 8th ribs -Will hold pain medication at this time due to AMS Access: Right IJ TLC and PIV Diet: NPO (NGT in place) GI Prophylaxis: Protonix IVP DVT Prophylaxis: Heparin SC Disposition: Palliative care consulted to clarify resuscitation status. Will remain in ICU until she is no longer requiring pressure support. Patient seen and case discussed with attending, Dr. Berrios. Tenzin Welch DO PGY1 - Internal Medicine Job Trainer - Pager [phone] <Brandon Berrios - Last Filed: 12/27/17 07:28> Objective - Vital Signs/Intake and Output Vital Signs (last 24 hours): Temp Pulse Resp BP Pulse Ox 94.1 F L 35 L 12 132/59 L 97 12/27/17 03:40 12/27/17 06:00 12/27/17 03:40 12/27/17 03:30 12/27/17 03:40 Intake and Output: 12/27/17 12/27/17 06:59 18:59 Intake Total 2812 Output Total 1900 Balance 912 - Medications Medications: Current Medications Heparin Sodium (Porcine) (Heparin) 5,000 units SC Q12 [facility] PRN Reason: Protocol Last Admin: 12/26/17 22:25 Dose: 5,000 units Hydrocortisone Sodium Succinate (Solu-Cortef) 50 mg IVP Q6 [facility] Last Admin: 12/27/17 06:08 Dose: 50 mg Norepinephrine Bitartrate 8 mg (/ Sodium Chloride) 508 mls @ 15.24 mls/hr IV .Q24H PRN; Protocol; 4 MCG/MIN PRN Reason: TITRATE PER MD ORDER Last Titration: 12/26/17 23:46 Dose: 0 mcg/min, 0 mls/hr Piperacillin Sod/Tazobactam Sod (Zosyn 3.375 In Ns 100ml) 100 mls @ 200 mls/hr IVPB Q6 [facility] PRN Reason: Protocol Stop: 01/01/18 20:33 Last Admin: 12/27/17 06:14 Dose: 200 mls/hr Vancomycin HCl (Vancomycin 1gm) 1 gm in 250 mls @ 167 mls/hr IVPB Q12 [facility] PRN Reason: Protocol Last Admin: 12/26/17 22:00 Dose: 167 mls/hr Levetiracetam 500 mg/ Sodium (Chloride) 105 mls @ 460 mls/hr IV Q12 [facility] Last Admin: 12/26/17 22:25 Dose: 460 mls/hr Dextrose/Sodium Chloride (Dextrose 5%/0.45% Ns 1000 Ml) 1,000 mls @ 125 mls/hr IV .Q8H [facility] Last Admin: 12/26/17 23:24 Dose: 125 mls/hr Pantoprazole Sodium (Protonix Inj) 40 mg IVP DAILY [facility] Last Admin: 12/26/17 09:18 Dose: 40 mg - Labs Labs: 12/27/17 05:15 12/27/17 05:15 PT 18.2 SECONDS (9.4-12.5) H 12/27/17 05:15 INR 1.57 12/27/17 05:15 APTT 27.2 Seconds (25.1-36.5) 12/25/17 16:45 Attending/Attestation - Attestation I have personally seen and examined this patient.: Yes I have fully participated in the care of the patient.: Yes I have reviewed all pertinent clinical information, including history, physical exam and plan: Yes Notes (Text): 12/26/17 42 year old female with past medical history of developmental delay who presented with seizure at home. She was found to have hypothermia, hypotension, bradycardia and transaminitis. CT head was negative for acute findings except mild anterior scalp and periorbital edema. CT chest/abdomen/pelvis showed anasarca, ascites, left sided rib fractures and LLL atelecatasis or pneumonia. GI is following. Transaminitis possibly secondary to shock liver. Hepatitis panel was ordered. Transvaginal ultrasound is ordered and CA 125. Neurology evaluation was appreciated. EEG is ordered. Patient is started on keppra. Cardiology evaluation was appreciated. Echocardiogram is ordered. Patient initially had afib not now has sinus bradycardia. Patient is on broad spectrum antibiotics as per ID. Will follow up on cultures. Patient has worsening anemia, possibly dilutional component. Will monitor and transfuse as needed. She is currently on pressors. Mother is at bedside and questions were answered. wash worker evaluation was requested. Brandon Berrios MD Hospitalist.
--- NOTE | 2017-12-26 21:56 | CP.PCM.CON ---
History of Present Illness - History of Present Illness History of Present Illness: Mp Yi PGY2 Neurology Consult Note for Dr. Rios Ms. Mccartney is a 42-year-old female with a PMH of mental retardation and developmental delay who was brought to [facility] ED via EMS for a hypoglycemic episode and subsequent seizure-like activity following administration of 1 amp of D50. The patient is in the ICU due to hypotension requiring pressors and lethargy. Neurology is consulted for the questionable seizure-like activity. Per mother, who is at bedside, the patient has had no prior seizure episodes. HPI and ROS were limited due to patient being minimally responsive, but mother denies recent fevers/chills, nausea/vomiting/diarrhea/constipation, chest pain, shortness of breath. CT head showed edema in the soft tissues over anterior scalp, and lens of the left globe lies dependently in the left lobe. Abdominal ultrasound showed echogenic atrophic kidneys, gallbladder sludge without gallstones and hepatic steatosis. CT abdomen showed severe edema within the mesenteric fat limiting evaluation of organs, consolidative infiltrate or atelectasis in left lower lobe, scattered infiltrates in the remainder of each lobe, worrisome for pneumonia. Diffuse subcutaneous edema suggesting anasarca, left 7 through 9 rib fractures laterally. Extensive mucosal thickening in the mid and distal esophagus concerning for esophagitis. When evaluated in the ICU, mom is bedside. The patient is minimally responsive , awakening to pain/sternal rub but nonverbal. The patient is off sedation. She is not intubated, but is requiring pressors for BP support. ROS was attempted but limited due to altered mental state. Review of Systems - Review of Systems Systems not reviewed;Unavailable: Altered Mental Status Past Patient History - Past Social History Smoking Status: Never Smoked - CARDIAC Hx Cardiac Disorders: No - PULMONARY Hx Respiratory Disorders: No - NEUROLOGICAL Hx Neurological Disorder: Yes Other/Comment: developmental delay - HEENT Hx HEENT Problems: No - RENAL Hx Chronic Kidney Disease: No - ENDOCRINE/METABOLIC Hx Endocrine Disorders: No - HEMATOLOGICAL/ONCOLOGICAL Hx Blood Disorders: No - INTEGUMENTARY Hx Dermatological Problems: No - MUSCULOSKELETAL/RHEUMATOLOGICAL Hx Musculoskeletal Disorders: No - GASTROINTESTINAL Hx Gastrointestinal Disorders: No - GENITOURINARY/GYNECOLOGICAL Hx Genitourinary Disorders: No - PSYCHIATRIC Hx Psychophysiologic Disorder: Yes Hx Substance Use: No Other/Comment: Developmental delay - SURGICAL HISTORY Hx Surgeries: No Meds Allergies/Adverse Reactions: Allergies Allergy/AdvReac Type Severity Reaction Status Date / Time No Known Allergies Allergy Verified 12/25/17 21:52 - Medications Medications: Current Medications Heparin Sodium (Porcine) (Heparin) 5,000 units SC Q12 [facility] PRN Reason: Protocol Last Admin: 12/26/17 16:48 Dose: Not Given Hydrocortisone Sodium Succinate (Solu-Cortef) 50 mg IVP Q6 [facility] Last Admin: 12/26/17 17:46 Dose: 50 mg Norepinephrine Bitartrate 8 mg (/ Sodium Chloride) 508 mls @ 15.24 mls/hr IV .Q24H PRN; Protocol; 4 MCG/MIN PRN Reason: TITRATE PER MD ORDER Last Titration: 12/26/17 01:30 Dose: 4 mcg/min, 15.24 mls/hr Piperacillin Sod/Tazobactam Sod (Zosyn 3.375 In Ns 100ml) 100 mls @ 200 mls/hr IVPB Q6 [facility]H PRN Reason: Protocol Stop: 01/01/18 20:33 Last Admin: 12/26/17 17:34 Dose: 200 mls/hr Vancomycin HCl (Vancomycin 1gm) 1 gm in 250 mls @ 167 mls/hr IVPB Q12 [facility]H PRN Reason: Protocol Last Admin: 12/26/17 10:46 Dose: Not Given Levetiracetam 500 mg/ Sodium (Chloride) 105 mls @ 460 mls/hr IV Q12 [facility] Dextrose/Sodium Chloride (Dextrose 5%/0.45% Ns 1000 Ml) 1,000 mls @ 125 mls/hr IV .Q8H [facility] Last Admin: 12/26/17 14:31 Dose: 125 mls/hr Pantoprazole Sodium (Protonix Inj) 40 mg IVP DAILY [facility] Last Admin: 12/26/17 09:18 Dose: 40 mg Physical Exam - Constitutional Appears: Non-toxic, No Acute Distress, Chronically Ill - Head Exam Head Exam: NORMAL INSPECTION - Eye Exam Eye Exam: Periorbital swelling (left eye, consistent w/ CT). absent: PERRL ( right eye sluggish, left eye minimally responsive (appears detached)) Pupil Exam: Unequal - ENT Exam ENT Exam: Mucous Membranes Dry - Neck Exam Neck exam: Negative for: Meningismus Additional comments: R IJ TLC in place - Respiratory Exam Respiratory Exam: NORMAL BREATHING PATTERN - Cardiovascular Exam Cardiovascular Exam: Bradycardia (40's), +S1, +S2 - GI/Abdominal Exam GI & Abdominal Exam: Soft. absent: Tenderness - Extremities Exam Extremities exam: Negative for: pedal edema - Neurological Exam Neurological exam: Altered Additional comments: Babinski negative b/l reflexes 2+ patellar GCS 9 ([id number]) Results - Vital Signs Recent Vital Signs: Last Vital Signs Temp 98 F 12/26/17 21:10 Pulse 45 L 12/26/17 21:10 Resp 20 12/26/17 21:10 BP 127/77 12/26/17 21:10 Pulse Ox 100 12/26/17 19:40 - Labs Result Diagrams: 12/26/17 16:00 12/26/17 14:55 Labs: Laboratory Results - last 24 hr 12/25/17 12/25/17 12/25/17 21:30 21:30 21:30 WBC RBC Hgb Hct MCV MCH MCHC RDW Plt Count MPV Gran % Lymph % (Auto) [place] % (Auto) Eos % (Auto) Baso % (Auto) Gran # Lymph # (Auto) [place] # (Auto) Eos # (Auto) Baso # (Auto) Differential Comment Haptoglobin PT INR Sodium Potassium Chloride Carbon Dioxide Anion Gap BUN Creatinine Est GFR ( Amer) Est GFR (Non-Af Amer) POC Glucose (mg/dL) Random Glucose Calcium Phosphorus 3.1 Magnesium 1.7 Iron TIBC % Saturation Transferrin Ferritin Total Bilirubin AST ALT Alkaline Phosphatase Ammonia 37 H Troponin I < 0.01 Total Protein Albumin Globulin Albumin/Globulin Ratio Amylase 367 H Lipase 549 H CA 125 Antigen Procalcitonin TSH 3rd Generation Prolactin 29.2 H Plasma Cortisol PM Urine Opiates Screen Urine Methadone Screen Ur Barbiturates Screen Ur Phencyclidine Scrn Ur Amphetamines Screen U Benzodiazepines Scrn U Oth Cocaine Metabols U Cannabinoids Screen Hepatitis A IgM Ab Hepatitis A Ab Total Hep Bs Antigen Hep B Core IgM Ab Hepatitis C Antibody Blood Type Blood Type Confirm Antibody Screen Crossmatch BBK History Checked 12/25/17 12/25/17 12/26/17 21:49 23:09 03:00 WBC RBC Hgb Hct MCV MCH MCHC RDW Plt Count MPV Gran % Lymph % (Auto) [place] % (Auto) Eos % (Auto) Baso % (Auto) Gran # Lymph # (Auto) [place] # (Auto) Eos # (Auto) Baso # (Auto) Differential Comment Haptoglobin PT INR Sodium Potassium Chloride Carbon Dioxide Anion Gap BUN Creatinine Est GFR ( Amer) Est GFR (Non-Af Amer) POC Glucose (mg/dL) 269 H Random Glucose Calcium Phosphorus Magnesium Iron TIBC % Saturation Transferrin Ferritin Total Bilirubin AST ALT Alkaline Phosphatase Ammonia Troponin I Total Protein Albumin Globulin Albumin/Globulin Ratio Amylase Lipase CA 125 Antigen Procalcitonin TSH 3rd Generation Prolactin Plasma Cortisol PM Urine Opiates Screen Negative Urine Methadone Screen Negative Ur Barbiturates Screen Negative Ur Phencyclidine Scrn Negative Ur Amphetamines Screen Negative U Benzodiazepines Scrn Negative U Oth Cocaine Metabols Negative U Cannabinoids Screen Negative Hepatitis A IgM Ab Hepatitis A Ab Total Hep Bs Antigen Hep B Core IgM Ab Hepatitis C Antibody Blood Type A NEGATIVE Blood Type Confirm Antibody Screen Negative Crossmatch See Detail BBK History Checked No verified bt 12/26/17 12/26/17 12/26/17 03:24 05:30 05:30 WBC 8.3 RBC 2.84 L Hgb 7.3 L Hct 22.0 L MCV 77.5 L MCH 25.7 MCHC 33.2 RDW 16.0 H Plt Count 116 L MPV 10.7 Gran % 89.1 H Lymph % (Auto) 9.1 L [place] % (Auto) 1.8 Eos % (Auto) 0.0 L Baso % (Auto) 0.0 Gran # 7.40 H Lymph # (Auto) 0.8 L [place] # (Auto) 0.2 Eos # (Auto) 0.0 Baso # (Auto) 0.00 Differential Comment Haptoglobin PT INR Sodium 148 Potassium 3.3 L Chloride 117 H Carbon Dioxide 22 Anion Gap 12 BUN 31 H Creatinine 0.8 Est GFR ( Amer) > 60 Est GFR (Non-Af Amer) > 60 POC Glucose (mg/dL) Random Glucose 126 H Calcium 6.4 L* Phosphorus 2.9 Magnesium 1.5 L Iron TIBC % Saturation Transferrin Ferritin Total Bilirubin 0.7 AST > 750 H D ALT 788 H Alkaline Phosphatase 707 H D Ammonia Troponin I < 0.01 Total Protein 4.7 L Albumin 2.1 L Globulin 2.6 Albumin/Globulin Ratio 0.8 L Amylase Lipase CA 125 Antigen Procalcitonin TSH 3rd Generation Prolactin Plasma Cortisol PM Urine Opiates Screen Urine Methadone Screen Ur Barbiturates Screen Ur Phencyclidine Scrn Ur Amphetamines Screen U Benzodiazepines Scrn U Oth Cocaine Metabols U Cannabinoids Screen Hepatitis A IgM Ab Hepatitis A Ab Total Hep Bs Antigen Hep B Core IgM Ab Hepatitis C Antibody Blood Type Blood Type Confirm A NEGATIVE Antibody Screen Crossmatch BBK History Checked 12/26/17 12/26/17 12/26/17 05:30 05:30 06:30 WBC RBC Hgb Hct MCV MCH MCHC RDW Plt Count MPV Gran % Lymph % (Auto) [place] % (Auto) Eos % (Auto) Baso % (Auto) Gran # Lymph # (Auto) [place] # (Auto) Eos # (Auto) Baso # (Auto) Differential Comment See pathology report Haptoglobin PT INR Sodium Potassium Chloride Carbon Dioxide Anion Gap BUN Creatinine Est GFR ( Amer) Est GFR (Non-Af Amer) POC Glucose (mg/dL) Random Glucose Calcium Phosphorus Magnesium Iron TIBC % Saturation Transferrin Ferritin Total Bilirubin AST ALT Alkaline Phosphatase Ammonia Troponin I Total Protein Albumin Globulin Albumin/Globulin Ratio Amylase Lipase CA 125 Antigen Procalcitonin 0.99 H TSH 3rd Generation Prolactin Plasma Cortisol PM Urine Opiates Screen Urine Methadone Screen Ur Barbiturates Screen Ur Phencyclidine Scrn Ur Amphetamines Screen U Benzodiazepines Scrn U Oth Cocaine Metabols U Cannabinoids Screen Hepatitis A IgM Ab Negative Hepatitis A Ab Total Hep Bs Antigen Negative Hep B Core IgM Ab Negative Hepatitis C Antibody Negative Blood Type Blood Type Confirm Antibody Screen Crossmatch BBK History Checked 12/26/17 12/26/17 12/26/17 08:06 09:10 09:10 WBC RBC Hgb Hct MCV MCH MCHC RDW Plt Count MPV Gran % Lymph % (Auto) [place] % (Auto) Eos % (Auto) Baso % (Auto) Gran # Lymph # (Auto) [place] # (Auto) Eos # (Auto) Baso # (Auto) Differential Comment Haptoglobin PT 19.6 H INR 1.69 Sodium Potassium Chloride Carbon Dioxide Anion Gap BUN Creatinine Est GFR ( Amer) Est GFR (Non-Af Amer) POC Glucose (mg/dL) 126 H Random Glucose Calcium Phosphorus Magnesium Iron TIBC % Saturation Transferrin Ferritin Total Bilirubin AST ALT Alkaline Phosphatase Ammonia Troponin I Total Protein Albumin Globulin Albumin/Globulin Ratio Amylase Lipase CA 125 Antigen Procalcitonin TSH 3rd Generation 2.98 Prolactin Plasma Cortisol PM Urine Opiates Screen Urine Methadone Screen Ur Barbiturates Screen Ur Phencyclidine Scrn Ur Amphetamines Screen U Benzodiazepines Scrn U Oth Cocaine Metabols U Cannabinoids Screen Hepatitis A IgM Ab Hepatitis A Ab Total Hep Bs Antigen Hep B Core IgM Ab Hepatitis C Antibody Blood Type Blood Type Confirm Antibody Screen Crossmatch BBK History Checked 12/26/17 12/26/17 12/26/17 09:35 11:00 11:00 WBC RBC Hgb Hct MCV MCH MCHC RDW Plt Count MPV Gran % Lymph % (Auto) [place] % (Auto) Eos % (Auto) Baso % (Auto) Gran # Lymph # (Auto) [place] # (Auto) Eos # (Auto) Baso # (Auto) Differential Comment Haptoglobin PT INR Sodium Potassium Chloride Carbon Dioxide Anion Gap BUN Creatinine Est GFR ( Amer) Est GFR (Non-Af Amer) POC Glucose (mg/dL) Random Glucose Calcium Phosphorus Magnesium Iron TIBC % Saturation Transferrin Ferritin Total Bilirubin AST ALT Alkaline Phosphatase Ammonia Troponin I 0.02 D Total Protein Albumin Globulin Albumin/Globulin Ratio Amylase Lipase CA 125 Antigen 21.4 Procalcitonin TSH 3rd Generation Prolactin Plasma Cortisol PM Urine Opiates Screen Urine Methadone Screen Ur Barbiturates Screen Ur Phencyclidine Scrn Ur Amphetamines Screen U Benzodiazepines Scrn U Oth Cocaine Metabols U Cannabinoids Screen Hepatitis A IgM Ab Negative Hepatitis A Ab Total Antibody neg Hep Bs Antigen Negative Hep B Core IgM Ab Hepatitis C Antibody Negative Blood Type Blood Type Confirm Antibody Screen Crossmatch BBK History Checked 12/26/17 12/26/17 12/26/17 12:40 13:00 13:00 WBC RBC Hgb Hct MCV MCH MCHC RDW Plt Count MPV Gran % Lymph % (Auto) [place] % (Auto) Eos % (Auto) Baso % (Auto) Gran # Lymph # (Auto) [place] # (Auto) Eos # (Auto) Baso # (Auto) Differential Comment Haptoglobin 55.8 PT INR Sodium Potassium Chloride Carbon Dioxide Anion Gap BUN Creatinine Est GFR ( Amer) Est GFR (Non-Af Amer) POC Glucose (mg/dL) 46 L Random Glucose Calcium Phosphorus Magnesium Iron 55 TIBC 174 L % Saturation 32 Transferrin 100.93 L Ferritin Total Bilirubin AST ALT Alkaline Phosphatase Ammonia Troponin I Total Protein Albumin Globulin Albumin/Globulin Ratio Amylase Lipase CA 125 Antigen Procalcitonin TSH 3rd Generation Prolactin Plasma Cortisol PM Urine Opiates Screen Urine Methadone Screen Ur Barbiturates Screen Ur Phencyclidine Scrn Ur Amphetamines Screen U Benzodiazepines Scrn U Oth Cocaine Metabols U Cannabinoids Screen Hepatitis A IgM Ab Hepatitis A Ab Total Hep Bs Antigen Hep B Core IgM Ab Hepatitis C Antibody Blood Type Blood Type Confirm Antibody Screen Crossmatch BBK History Checked 12/26/17 12/26/17 12/26/17 14:35 14:55 14:55 WBC RBC Hgb Hct MCV MCH MCHC RDW Plt Count MPV Gran % Lymph % (Auto) [place] % (Auto) Eos % (Auto) Baso % (Auto) Gran # Lymph # (Auto) [place] # (Auto) Eos # (Auto) Baso # (Auto) Differential Comment Haptoglobin PT INR Sodium 150 H Potassium 3.5 L Chloride 119 H Carbon Dioxide 25 Anion Gap 10 BUN 27 H Creatinine 0.9 Est GFR ( Amer) > 60 Est GFR (Non-Af Amer) > 60 POC Glucose (mg/dL) 171 H Random Glucose 146 H Calcium 6.2 L* Phosphorus Magnesium Iron TIBC % Saturation Transferrin Ferritin 182.0 Total Bilirubin 1.3 AST 975 H D ALT 680 H Alkaline Phosphatase 576 H Ammonia Troponin I Total Protein 4.5 L Albumin 2.1 L Globulin 2.4 Albumin/Globulin Ratio 0.9 L Amylase Lipase CA 125 Antigen Procalcitonin TSH 3rd Generation Prolactin Plasma Cortisol PM Urine Opiates Screen Urine Methadone Screen Ur Barbiturates Screen Ur Phencyclidine Scrn Ur Amphetamines Screen U Benzodiazepines Scrn U Oth Cocaine Metabols U Cannabinoids Screen Hepatitis A IgM Ab Hepatitis A Ab Total Hep Bs Antigen Hep B Core IgM Ab Hepatitis C Antibody Blood Type Blood Type Confirm Antibody Screen Crossmatch BBK History Checked 12/26/17 12/26/17 12/26/17 14:55 15:45 16:00 WBC 4.5 D RBC 2.36 L Hgb 6.2 L* Hct 18.4 L* MCV 78.0 L MCH 26.3 MCHC 33.7 RDW 16.3 H Plt Count 89 L MPV 11.7 H Gran % 89.8 H Lymph % (Auto) 8.9 L [place] % (Auto) 1.3 Eos % (Auto) 0.0 L Baso % (Auto) 0.0 Gran # 4.03 Lymph # (Auto) 0.4 L [place] # (Auto) 0.1 Eos # (Auto) 0.0 Baso # (Auto) 0.00 Differential Comment Haptoglobin PT INR Sodium Potassium Chloride Carbon Dioxide Anion Gap BUN Creatinine Est GFR ( Amer) Est GFR (Non-Af Amer) POC Glucose (mg/dL) 175 H Random Glucose Calcium Phosphorus Magnesium Iron TIBC % Saturation Transferrin Ferritin Total Bilirubin AST ALT Alkaline Phosphatase Ammonia Troponin I Total Protein Albumin Globulin Albumin/Globulin Ratio Amylase Lipase CA 125 Antigen Procalcitonin TSH 3rd Generation Prolactin Plasma Cortisol PM 27.4 H Urine Opiates Screen Urine Methadone Screen Ur Barbiturates Screen Ur Phencyclidine Scrn Ur Amphetamines Screen U Benzodiazepines Scrn U Oth Cocaine Metabols U Cannabinoids Screen Hepatitis A IgM Ab Hepatitis A Ab Total Hep Bs Antigen Hep B Core IgM Ab Hepatitis C Antibody Blood Type Blood Type Confirm Antibody Screen Crossmatch BBK History Checked 12/26/17 17:36 WBC RBC Hgb Hct MCV MCH MCHC RDW Plt Count MPV Gran % Lymph % (Auto) [place] % (Auto) Eos % (Auto) Baso % (Auto) Gran # Lymph # (Auto) [place] # (Auto) Eos # (Auto) Baso # (Auto) Differential Comment Haptoglobin PT INR Sodium Potassium Chloride Carbon Dioxide Anion Gap BUN Creatinine Est GFR ( Amer) Est GFR (Non-Af Amer) POC Glucose (mg/dL) 172 H Random Glucose Calcium Phosphorus Magnesium Iron TIBC % Saturation Transferrin Ferritin Total Bilirubin AST ALT Alkaline Phosphatase Ammonia Troponin I Total Protein Albumin Globulin Albumin/Globulin Ratio Amylase Lipase CA 125 Antigen Procalcitonin TSH 3rd Generation Prolactin Plasma Cortisol PM Urine Opiates Screen Urine Methadone Screen Ur Barbiturates Screen Ur Phencyclidine Scrn Ur Amphetamines Screen U Benzodiazepines Scrn U Oth Cocaine Metabols U Cannabinoids Screen Hepatitis A IgM Ab Hepatitis A Ab Total Hep Bs Antigen Hep B Core IgM Ab Hepatitis C Antibody Blood Type Blood Type Confirm Antibody Screen Crossmatch BBK History Checked Assessment & Plan - Assessment and Plan (Free Text) Assessment: 42-year-old -[place] female with a PMH of MR and DD being managed in ICU for hypoglycemia and seizure-like activity, possibly in postictal state at this time. Multiple metabolic derangements noted on lab work including transaminitis, with elevated ammonia level. Elevated amylase lipase concerning for possible pancreatitis. Anemia is also noted. Patient is bradycardic and hypotensive, currently requiring pressors. Plan: - Keppra 1000 mg 1 - Keppra 500 mg twice daily to be started - CT head ordered - EEG stat ordered - Neurochecks - On Vanco and Zosyn, ID is managing - Cardio and GI also following - Palliative care - Maintain MAP > 65 - Avoid hepatotoxic drugs. - Further recs per Dr. Rios Case was reviewed and discussed with attending, Dr. Gabriel Yi PGY2
[2017-12-26] MEDS ORDERED: levETIRAcetam 500 MG in Sodium Chloride 0.9% 100 ML IV SCH (22:00)
[2017-12-26 22:23] LABS: FOLATE 11.1 ng/mL
[2017-12-27 00:44] LABS: GRAN # 6.66 (1.4-6.5); GRAN % 96.1 % (50.0-68.0); LYMPH # 0.2 (1.2-3.4); LYMPH % 3.3 % (22.0-35.0); MEAN CELL VOLUME 80.3 fl (80.0-105.0); MEAN CORPUSCULAR HEMOGLOBIN 27.8 pg (25.0-35.0); MEAN CORPUSCULAR HGB CONC 34.6 g/dl (31.0-37.0); MEAN PLATELET VOLUME 10.7 fl (7.0-11.0); MONO % 0.6 % (1.0-6.0); PLATELET COUNT 58 10^3/uL (120.0-450.0); RBC 3.96 10^6/uL (3.5-6.1); RED CELL DISTRIBUTION WIDTH 15.1 % (11.5-14.5); WHITE BLOOD COUNT 6.9 10^3/ul (4.5-11.0)
[2017-12-27 02:57] LABS: ANISOCYTOSIS SLIGHT; BAND 6 % (0-2); EOSINOPHIL 1 % (0.0-3.0); HYPOCHROMIA 2+; LYMPHOCYTE 7 % (22.0-35.0); MONOCYTE 3 % (1.0-6.0); NEUTROPHIL 83 % (50.0-70.0); PLATELET ESTIMATE NORMAL (NORMAL); TARGET CELLS 1+
[2017-12-27 02:58] LABS: ROULEAU 1+; STOMATOCYTE SLIGHT
[2017-12-27 05:59] LABS: BASO # 0.01 K/mm3 (0.0-2.0); BASO % 0.1 % (0.0-3.0); GRAN # 7.24 (1.4-6.5); GRAN % 93.9 % (50.0-68.0); HEMOGLOBIN 10.9 g/dL (12.0-16.0); LYMPH # 0.4 (1.2-3.4); LYMPH % 5.1 % (22.0-35.0); MEAN CELL VOLUME 79.5 fl (80.0-105.0); MEAN CORPUSCULAR HEMOGLOBIN 27.6 pg (25.0-35.0); MEAN CORPUSCULAR HGB CONC 34.7 g/dl (31.0-37.0); MEAN PLATELET VOLUME 10.5 fl (7.0-11.0); MONO # 0.1 (0.1-0.6); MONO % 0.9 % (1.0-6.0); RBC 3.95 10^6/uL (3.5-6.1); WHITE BLOOD COUNT 7.7 10^3/ul (4.5-11.0)
[2017-12-27 06:05] LABS: INR 1.57; PROTHROMBIN TIME 18.2 SECONDS (9.4-12.5)
[2017-12-27] MEDS: Piperacillin/Tazobact 3.375 gm 100 ML IVPB SCH ×3 (06:14→17:19)
[2017-12-27 06:35] LABS: ALB/GLOB RATIO 0.9 (1.1-1.8); ALBUMIN 2.2 g/dL (3.0-4.8); ALT/SGPT 596 U/L (7-56); AST/SGOT 639 U/L (14-36); BLOOD UREA NITROGEN 24 mg/dL (7-21); CALCIUM 6.7 mg/dL (8.4-10.5); GFR NON-AFRICAN AMERICAN > 60
--- NOTE | 2017-12-27 08:32 | PN ---
Copied To: Erasmo Remy MD Attending MD: Erasmo Remy MD DATE: 12/27/2017 [employer] NOTE LOCATION: At [facility] SUBJECTIVE: The patient is still lethargic, resting in bed with her family member/mother is at bedside. The patient has O2 via nasal cannula, but saturation is 100%. No obvious distress this morning. The patient will be given potassium for hypokalemia this morning and she continues to be bradycardic on the monitor, but blood pressure is stable. The patient continues with a warming blanket. PHYSICAL EXAMINATION: VITAL SIGNS: Physical exam note that her temperature is 94.1, her pulse is 38, respirations of 12 and BP is 132/59. HEENT: Head is atraumatic, normocephalic. Eyes reactive to light. Ears, nose and throat seemed to be within normal limits. NECK: Supple. No JVD. No thyroid enlargement. No lymph nodes. HEART: Has normal rhythm, but is bradycardic. Normal S1, S2. LUNGS: Reveal decreased breath sounds at the bases, but no significant rhonchi or rales. ABDOMEN: Soft. Decreased bowel sounds. GENITALIA AND RECTAL: Deferred. MUSCULOSKELETAL: No joint deformities. EXTREMITIES: Reveal no significant edema. NEUROLOGICAL: The patient is lethargic. LABORATORY DATA: As far as her laboratories are concerned, her white count is 7.7, hemoglobin is 10.9 and hematocrit 31.4 with platelets of 52,000. The patient's sodium is 151, potassium 2.6, chloride 116, CO2 of 27 with a BUN of 24, creatinine of 0.8 and a glucose of 114. The patient has increased LFTs as well. IMPRESSION: As far as my impression, this patient has possible sepsis with hypothermia, also is noted to be hypokalemic this morning. The patient has left-sided rib fractures of seventh and eighth along with some atelectasis and possible pneumonia on that side as well. The patient has a history of mental retardation and cachexia. She also presented with possible seizure and falling. The patient has bradycardia, anemia, thrombocytopenia and elevated liver enzymes. PLAN: As far as our plan, we will correct the potassium and continue with D5 and half normal saline as far as IV fluids. The patient is getting heparin prophylactically and is getting Keppra as well. She is getting Protonix and hydrocortisone as well as vancomycin and Zosyn. We will continue to monitor closely and treat aggressively along with the other consultants and the primary care doctor. Erasmo Remy MD
[2017-12-27] MEDS ORDERED: DOPamine 400mg/250ml D5W 400 MG/250 ML BAG IV ONE (08:46)
[2017-12-27] MEDS: DOPamine 400mg/250ml D5W 400 MG/250 ML BAG IV PRN (08:49)
--- NOTE | 2017-12-27 08:49 | CP.PCM.PN ---
<Tenzin Welch - Last Filed: 12/27/17 13:00> Subjective - Date & Time of Evaluation Date of Evaluation: 12/27/17 Time of Evaluation: 08:48 - Subjective Subjective: Tenzin Welch DO PGY1 - Internal Medicine [employer] - Hospital Progress Note Patient was seen and examined at bedside in ICU; No change in presentation from day before. Mother was presented and reported patient had minimal Clarified code status with mother; patient is full code. DNI order discontinued. Still bradycardic, MAP is improving; ROS unable to be obtained Objective - Vital Signs/Intake and Output Vital Signs (last 24 hours): Temp Pulse Resp BP Pulse Ox 95.9 F L 37 L 14 108/54 L 100 12/27/17 08:30 12/27/17 08:30 12/27/17 08:30 12/27/17 08:30 12/27/17 08:30 Intake and Output: 12/27/17 12/27/17 06:59 18:59 Intake Total 2812 Output Total 1900 Balance 912 - Medications Medications: Current Medications Heparin Sodium (Porcine) (Heparin) 5,000 units SC Q12 NAS[facility] PRN Reason: Protocol Last Admin: 12/26/17 22:25 Dose: 5,000 units Hydrocortisone Sodium Succinate (Solu-Cortef) 50 mg IVP Q6 NAS[facility] Last Admin: 12/27/17 06:08 Dose: 50 mg Norepinephrine Bitartrate 8 mg (/ Sodium Chloride) 508 mls @ 15.24 mls/hr IV .Q24H PRN; Protocol; 4 MCG/MIN PRN Reason: TITRATE PER MD ORDER Last Titration: 12/26/17 23:46 Dose: 0 mcg/min, 0 mls/hr Piperacillin Sod/Tazobactam Sod (Zosyn 3.375 In Ns 100ml) 100 mls @ 200 mls/hr IVPB Q6 NASH PRN Reason: Protocol Stop: 01/01/18 20:33 Last Admin: 12/27/17 06:14 Dose: 200 mls/hr Vancomycin HCl (Vancomycin 1gm) 1 gm in 250 mls @ 167 mls/hr IVPB Q12 [facility] PRN Reason: Protocol Last Admin: 12/26/17 22:00 Dose: 167 mls/hr Dextrose/Sodium Chloride (Dextrose 5%/0.45% Ns 1000 Ml) 1,000 mls @ 125 mls/hr IV .Q8H [facility] Last Admin: 12/26/17 23:24 Dose: 125 mls/hr Potassium Chloride (Potassium Chloride 20 Meq/100 Ml) 20 meq in 100 mls @ 50 mls/hr IVPB Q2H [facility] Stop: 12/27/17 11:29 Last Admin: 12/27/17 07:41 Dose: 50 mls/hr Levetiracetam (Keppra 500mg Ivpb) 500 mg in 100 mls @ 460 mls/hr IV Q12 NAS[facility] Dopamine HCl/Dextrose (Dopamine 400mg/250ml D5w) 400 mg in 250 mls @ 5.188 mls/ hr IV .Q24H PRN; Protocol; 5 MCG/KG/MIN PRN Reason: TITRATE PER MD ORDER Pantoprazole Sodium (Protonix Inj) 40 mg IVP DAILY [facility] Last Admin: 12/26/17 09:18 Dose: 40 mg - Labs Labs: 12/27/17 05:15 12/27/17 05:15 PT 18.2 SECONDS (9.4-12.5) H 12/27/17 05:15 INR 1.57 12/27/17 05:15 APTT 27.2 Seconds (25.1-36.5) 12/25/17 16:45 Physical - Constitutional Appears: No Acute Distress, Younger Than Stated Age, Cachectic, Chronically Ill , Still minimally responsive - Head Exam Additional comments: Echymosis appreciated under R eye L upper lid with significant swelling - Eye Exam Additional comments: Pupils appearing to be minimally sluggish to light; 5mm dilated - ENT Exam Additional comments: Poor dentition - Respiratory Exam Respiratory Exam: Clear to Ausculation Bilateral, NORMAL BREATHING PATTERN. absent: Respiratory Distress - Cardiovascular Exam Cardiovascular Exam: Bradycardia, REGULAR RHYTHM, +S1, +S2. absent: JVD, Rubs, Murmur - GI/Abdominal Exam GI & Abdominal Exam: Soft. absent: Tenderness - Extremities Exam Additional comments: UE and LE BL appear to be Atrophied; Distal pulses difficult to palpate; limbs do not appear to be ischemic - Neurological Exam Neurological Exam: Altered Additional comments: GCS 9 Arousable to painful stimulus; Withdraws from stimuli; Babinski reflexes within normal limit - Skin Skin Exam: Dry, Intact Assessment and Plan - Assessment and Plan (Free Text) Assessment: 42F with PMH of developmental delay reported to have absence seizure and BL LE weakness prior to admission; was found to have altered mental status, significant hypotension, bradycardia, hypothermia, liver failure, and paroxysmal atrial fibrillation; admitted to ICU for further workup and management. AMS Etiologies: Post-Ictal State vs. Septic Encephalopathy vs. Hepatic Encephalopathy vs. ACS vs. Intoxication -CT Head on admission showed no acute intracranial abnormality. mild anterior scalp and periorbital edema. -Repeat CT head showed limited left greater right periorbital and bilateral frontal scattered soft tissue edema changes -CT Chest, Abdomen and Pelvis showed edema of mesenteric fat and ascites. left- sided rib fractures with atelectasis or pneumonia in the LLL -Chest X-Ray showed no acute findings -EEG pending -Prolactin elevated at 29.2 -Ammonia mildly elevated at 37 -Four serial troponins negative -UA without signs of UTI -UDS and Acetaminophen levels negative -HIV pending -Blood Cx 2/2 negative @ 24H; UCx negative; MRSA screen negative -Continue emperic IV Vancomycin 1gm Q12 and IVPB Zosyn 3.375 Q6 -IV Keppra 1000mg ONCE; Then Keppra 500mg BID -Neuro checks Q2 and fall/aspiration/seizure precautions -Neurology, ID, Cardiology, and GI consulted, all recommendations appreciated Acute Liver Failure Etiologies: Shock Liver vs. Inflammatory vs. Infectious vs. Drug-Induced -CT Chest, Abdomen and Pelvis showed findings as above -Abdominal US showed atrophied liver. diffuse increased echogenicity in liver may reflect hepatic steatosis however parenchymal infectious/inflammatory etiologies cannot be excluded. bilateral renal atrophy. -Total Bilirubin/AST/ALT/ALP: 0.7/>750/788/707 (downtrending) -Hepatitis and HIV workup pending -Acetaminophen levels negative -GI Consulted, all recommendations appreciated Hypotension -MAPs significantly improved over last 24H -Unresponsive to two liters of NS bolus and Albumin 25% 12.5mg ONCE initially -S/p Levophed drip -Maintaining pressures well -Continue D5 1/2 @125mls/hr -Continue to monitor Q15min Bradycardia -EKG and teletypesetter monitor showing sinus bradycardia in the 40-50 beats/min range -S/P Atropine 0.5mg -Continue to monitor with telemetry monitoring in ICU - Started on Dopamine drip -Cardiology following, all recommendations appreciated Fractured Left Ribs 7-9 -CT Chest, Abdomen and Pelvis findings as above -Ribs X-Ray - fractures in the left 7th and 8th ribs -Will hold pain medication at this time due to AMS Hypkalemia/Hypomag Repleted today 60meqK+/ 1gm Mg Recheck tomorrow Microcytic Normochromic Anemia -H/H at 7.3/22.0 (9.0/27.2 on admission) -S/P two units FFP; Two units pRBC -Hb 11 this AM. -2U pRBC prepared for further transfusion -Transvaginal US, CA-125, and FOBT pending -Continue to monitor with daily CBCs Paroxysmal Atrial Fibrillation - Ruled out - Most likely due to artifact -EKG on admission showed atrial fibrillation at 71 beats/min with prolonged QTc at 493 -Repeat EKGs showing NSR -[id number] score: 1 -Echocardiogram pending -Continue to monitor with telemetry monitoring Access: Right IJ TLC and PIV Diet: NPO (NGT in place) GI Prophylaxis: Protonix IVP DVT Prophylaxis: Heparin SC Disposition: Resuscitation status confirmed w/ mother today; patient is FULL CODE. She will remain in ICU until she is stable. Patient seen and case discussed with attending, Dr. Berrios. Tenzin Welch DO PGY1 - Internal Medicine [employer] - Pager [phone] <Brandon Berrios - Last Filed: 12/27/17 14:47> Objective - Vital Signs/Intake and Output Vital Signs (last 24 hours): Temp Pulse Resp BP Pulse Ox 96.3 F L 37 L 17 146/75 100 12/27/17 13:20 12/27/17 13:20 12/27/17 13:20 12/27/17 13:00 12/27/17 13:20 Intake and Output: 12/27/17 12/27/17 06:59 18:59 Intake Total 2812 50 Output Total 1900 Balance 912 50 - Medications Medications: Current Medications Heparin Sodium (Porcine) (Heparin) 5,000 units SC Q12 NASH PRN Reason: Protocol Last Admin: 12/27/17 09:42 Dose: 5,000 units Hydrocortisone Sodium Succinate (Solu-Cortef) 50 mg IVP Q6 NASH Last Admin: 12/27/17 12:21 Dose: 50 mg Norepinephrine Bitartrate 8 mg (/ Sodium Chloride) 508 mls @ 15.24 mls/hr IV .Q24H PRN; Protocol; 4 MCG/MIN PRN Reason: TITRATE PER MD ORDER Last Titration: 12/26/17 23:46 Dose: 0 mcg/min, 0 mls/hr Piperacillin Sod/Tazobactam Sod (Zosyn 3.375 In Ns 100ml) 100 mls @ 200 mls/hr IVPB Q6 NASH PRN Reason: Protocol Stop: 01/01/18 20:33 Last Admin: 12/27/17 12:22 Dose: 200 mls/hr Vancomycin HCl (Vancomycin 1gm) 1 gm in 250 mls @ 167 mls/hr IVPB Q12 NASH PRN Reason: Protocol Last Admin: 12/27/17 09:47 Dose: 167 mls/hr Dextrose/Sodium Chloride (Dextrose 5%/0.45% Ns 1000 Ml) 1,000 mls @ 125 mls/hr IV .Q8H [facility] Last Admin: 12/27/17 09:42 Dose: 125 mls/hr Levetiracetam (Keppra 500mg Ivpb) 500 mg in 100 mls @ 460 mls/hr IV Q12 [facility] Last Admin: 12/27/17 09:47 Dose: 460 mls/hr Dopamine HCl/Dextrose (Dopamine 400mg/250ml D5w) 400 mg in 250 mls @ 5.188 mls/ hr IV .Q24H PRN; Protocol; 5 MCG/KG/MIN PRN Reason: TITRATE PER MD ORDER Last Titration: 12/27/17 12:26 Dose: 10 mcg/kg/min, 10.376 mls/hr Magnesium Sulfate/Dextrose (Magnesium Sulfate 1 Gm/100 Ml D5w) 1 gm in 100 mls @ 100 mls/hr IVPB ONCE ONE Stop: 12/27/17 15:05 Last Admin: 12/27/17 14:22 Dose: 100 mls/hr Potassium Chloride (Potassium Chloride 20 Meq/100 Ml) 20 meq in 100 mls @ 50 mls/hr IVPB ONCE ONE Stop: 12/27/17 16:04 Last Admin: 12/27/17 14:22 Dose: 50 mls/hr Pantoprazole Sodium (Protonix Inj) 40 mg IVP DAILY [facility] Last Admin: 12/27/17 10:21 Dose: 40 mg - Labs Labs: 12/27/17 13:10 12/27/17 13:30 PT 18.2 SECONDS (9.4-12.5) H 12/27/17 05:15 INR 1.57 12/27/17 05:15 APTT 27.2 Seconds (25.1-36.5) 12/25/17 16:45 Attending/Attestation - Attestation I have personally seen and examined this patient.: Yes I have fully participated in the care of the patient.: Yes I have reviewed all pertinent clinical information, including history, physical exam and plan: Yes Notes (Text): 12/27/17 14:44 42 year old female with past medical history of developmental delay who presented with seizure at home. She was found to have hypothermia, hypotension, bradycardia and transaminitis. CT head was negative for acute findings except mild anterior scalp and periorbital edema. CT chest/abdomen/pelvis showed anasarca, ascites, left sided rib fractures and LLL atelecatasis or pneumonia. I did discuss rib fracture and periorbital edema findings with the mother at bedside; she denied any recent fall, trauma or abuse. GI is following. Transaminitis possibly secondary to shock liver is slowly improving. Hepatitis panel was negative. Transvaginal ultrasound was ordered and CA 125. Neurology evaluation was appreciated. EEG was ordered. Patient is started on keppra. Cardiology is also following for bradycardia and patient is started on dopamine drip. Patient is on broad spectrum antibiotics as per ID. Will follow up on cultures. Anemia improved after prbc transfusion yesterday. Will replete and repeat lytes (potassium). railway traction line worker evaluation was requested. Brandon Berrios MD Hospitalist.
[2017-12-27] MEDS: Dextrose 5%/0.45% NS 1,000 ML IV SCH ×2 (09:42→17:18)
[2017-12-27] MEDS: Vancomycin 1gm in NS 250ml 1 GM/250 ML BAG IVPB SCH ×2 (09:47→21:44)
[2017-12-27] MEDS: levETIRAcetam 500mg IVPB 500 MG/100 ML BAG IV SCH ×2 (09:47→21:44)
--- NOTE | 2017-12-27 11:14 | PN ---
Copied To: Abdiaziz Sousa MD Attending MD: Abdiaziz Sousa MD DATE: 12/27/2017 SUBJECTIVE: The patient is in bed, in no acute distress, nontoxic. PHYSICAL EXAMINATION: VITAL SIGNS: On exam, temperature is 95, respiratory rate is 18, heart rate of 38. HEENT: examination of HEENT is unremarkable. NECK: Supple. LUNGS: Have decreased breath sounds. HEART: Normal S1, S2. ABDOMEN: Soft, nontender. LABORATORY DATA: Laboratory examination reveals the patient's white count is 7.7, hemoglobin of 10, platelets of 52. Chemistries reveals a BUN of 24, creatinine of 0.8. Urinalysis is noted. Microbiology reveals the blood cultures are negative. Urine cultures are negative. Review of orders are noted. ASSESSMENT AND PLAN: A 42-year-old female with mental disability, developmental delay, cachexia, who was brought in, noted to have seizure-like activity after a fall with systemic inflammatory response syndrome after a seizure episode from hypoglycemia. The patient with cachexia, mental disability, developmental delay with malnutrition, on vancomycin and Zosyn. Thus far with negative blood cultures, negative urine cultures, normal white count, elevated procalcitonin of 29. We will continue the vancomycin and Zosyn pending panculture results. The patient also had a CAT scan of the chest and abdomen, had a chest x-ray yesterday with no pulmonary disease. CAT scan of the chest and abdomen, left-sided rib fracture, atelectasis in the left lower lobe. We will follow with you. LFTs are elevated as is the alkaline phosphatase. The patient also had an ultrasound of the abdomen. Distended gallbladder. No gallstones. No wall thickening or pericholecystic fluid. Sonographic Diaz's sign is negative and the common bile duct is not dilated. The patient did have hypothermia. We will follow closely with you. Dr. Erasmo Remy's progress note from today who was the technician support association in bed in the ICU is reviewed. His concern is that the left-sided rib fracture with possible atelectasis and possible pneumonia. We will follow closely with you. We will continue the antibiotics for now. Prognosis is poor. Abdiaziz Sousa MD
[2017-12-27 13:25] LABS: GRAN # 8.63 (1.4-6.5); GRAN % 93.6 % (50.0-68.0); HEMOGLOBIN 12.6 g/dL (12.0-16.0); LYMPH # 0.5 (1.2-3.4); LYMPH % 5.4 % (22.0-35.0); MEAN CELL VOLUME 79.8 fl (80.0-105.0); MEAN CORPUSCULAR HEMOGLOBIN 27.9 pg (25.0-35.0); MEAN PLATELET VOLUME 10.3 fl (7.0-11.0); MONO # 0.1 (0.1-0.6); RBC 4.51 10^6/uL (3.5-6.1); RED CELL DISTRIBUTION WIDTH 15.2 % (11.5-14.5); WHITE BLOOD COUNT 9.2 10^3/ul (4.5-11.0)
[2017-12-27 13:27] LABS: PLATELET COUNT 49 10^3/uL (120.0-450.0)
[2017-12-27 13:58] LABS: ALB/GLOB RATIO 0.9 (1.1-1.8); ALBUMIN 2.6 g/dL (3.0-4.8); ALT/SGPT 660 U/L (7-56); AST/SGOT 639 U/L (14-36); BLOOD UREA NITROGEN 21 mg/dL (7-21); CALCIUM 7.1 mg/dL (8.4-10.5); GFR NON-AFRICAN AMERICAN > 60
[2017-12-27] MEDS ORDERED: Magnesium Sulfate 1 gm in D5W 1 GM/100 ML BAG IVPB ONE (14:06)
--- NOTE | 2017-12-27 15:50 | PN ---
Copied To: Bhavik Pritchett MD Attending MD: Bhavik Pritchett MD DATE: 12/27/2017 LOCATION: The patient in CCU 129, bed 6. This progress note being written on behalf of Dr. Newton whom I am covering. REASON FOR CONSULTATION: Bradycardia, hypothermia. Initially, it was thought that the patient on admission had atrial fibrillation. I reviewed the EKG, this artifact is not atrial fibrillation. The patient had sinus bradycardia. SUBJECTIVE: The patient drowsy, not responding. The patient is a mentally challenged patient. Mother on the bedside. The patient on admission also was found to have hypoglycemia. The patient was brought here because of unresponsiveness and there is questionable seizure or fall. The patient also was found to have rib fractures. PHYSICAL EXAMINATION: VITAL SIGNS: Blood pressure 108/54, respirations 14, temperature 95.9, pulse 38 per minute. HEENT: Head is normocephalic. Eyes: Pupils normal, conjunctivae slightly pale. NECK: JVP low, carotid equal. THORAX: AP diameter normal. LUNGS: No rales. CARDIOVASCULAR: S1, S2. EXTREMITIES: No clubbing. No cyanosis. LABORATORY DATA: WBC 7.7; hemoglobin 10.9, hematocrit 31.4, platelet 252. Sodium 151, potassium 2.6, BUN 24, creatinine 0.8, sugar 129. Total bilirubin 2.4, AST 639, ALT 596, alkaline phosphatase 547, total protein 4.7, albumin 2.2. TSH 2.98, which is normal. DIAGNOSES: The patient unresponsive, hypoglycemia, question of fall versus seizures, hepatitis, liver enzymes are elevated, hypokalemia, hypernatremia, hypothermia, thrombocytopenia, bradycardia. PLAN: The patient continued IV fluid therapy. The patient is rehydrated. I will start dopamine drip for bradycardia. Continue to treat the patient for hypothermia. The patient also getting levetiracetam 500 mg IV every 12 hours. Potassium therapy has been ordered. Protonix 40 IV daily, hydrocortisone 50 mg IV every 6 hours, vancomycin 1 g IV every 12 hours, piperacillin and tazobactam 100 mL IV every 6 hours. For anemia, the patient received blood transfusion. Repeat labs for the morning already requested. Echo was done yesterday, showed ejection fraction normal, left ventricle size normal, wall thickness normal. Moderate mitral regurgitation. Moderate tricuspid regurgitation. [id number] pulmonary hypertension with RVSP of 57 mmHg. We will follow up. Bhavik Pritchett MD
[2017-12-27 17:54] LABS: GRAN # 8.33 (1.4-6.5); GRAN % 92.9 % (50.0-68.0); HEMOGLOBIN 13.1 g/dL (12.0-16.0); LYMPH # 0.5 (1.2-3.4); LYMPH % 5.9 % (22.0-35.0); MEAN CELL VOLUME 79.8 fl (80.0-105.0); MEAN CORPUSCULAR HEMOGLOBIN 28.4 pg (25.0-35.0); MEAN CORPUSCULAR HGB CONC 35.6 g/dl (31.0-37.0); MEAN PLATELET VOLUME 10.5 fl (7.0-11.0); MONO # 0.1 (0.1-0.6); MONO % 1.2 % (1.0-6.0); RBC 4.61 10^6/uL (3.5-6.1); RED CELL DISTRIBUTION WIDTH 15.4 % (11.5-14.5)
[2017-12-27 20:39] LABS: ALB/GLOB RATIO 0.9 (1.1-1.8); ALBUMIN 2.6 g/dL (3.0-4.8); ALT/SGPT 617 U/L (7-56); AST/SGOT 491 U/L (14-36); BLOOD UREA NITROGEN 19 mg/dL (7-21); CALCIUM 7.5 mg/dL (8.4-10.5); GFR NON-AFRICAN AMERICAN > 60
[2017-12-27] MEDS: Potassium Chloride 40 MEQ in Dextrose 5%/0.45% NS 1,000 ML IV SCH (21:46)
[2017-12-28] MEDS: Piperacillin/Tazobact 3.375 gm 100 ML IVPB SCH ×4 (01:42→17:15)
--- NOTE | 2017-12-28 05:57 | CP.PCM.PN ---
Subjective - Date & Time of Evaluation Date of Evaluation: 12/28/17 Time of Evaluation: 05:54 - Subjective Subjective: Ms. Mccartney was seen and examined at the bedside in ICU. She remains non-verbal, withdraws from pain stimuli, breathing on her own with oxygen supplement via nasal cannula. Her pupils is in downward position, unable to assess pupils. Currently, on vasopressor for blood pressure support.There was no untoward events overnight. Objective - Vital Signs/Intake and Output Vital Signs (last 24 hours): Temp Pulse Resp BP Pulse Ox 99.7 F H 37 L 18 137/82 94 L 12/27/17 20:00 12/27/17 22:00 12/27/17 18:10 12/27/17 18:00 12/27/17 18:10 Intake and Output: 12/27/17 12/28/17 18:59 06:59 Intake Total 2476 Output Total 3300 Balance -824 - Medications Medications: Current Medications Heparin Sodium (Porcine) (Heparin) 5,000 units SC Q12 NASH PRN Reason: Protocol Last Admin: 12/27/17 21:44 Dose: 5,000 units Hydrocortisone Sodium Succinate (Solu-Cortef) 50 mg IVP Q6 [facility] Last Admin: 12/28/17 01:42 Dose: 50 mg Norepinephrine Bitartrate 8 mg (/ Sodium Chloride) 508 mls @ 15.24 mls/hr IV .Q24H PRN; Protocol; 4 MCG/MIN PRN Reason: TITRATE PER MD ORDER Last Titration: 12/26/17 23:46 Dose: 0 mcg/min, 0 mls/hr Piperacillin Sod/Tazobactam Sod (Zosyn 3.375 In Ns 100ml) 100 mls @ 200 mls/hr IVPB Q6 NASH PRN Reason: Protocol Stop: 01/01/18 20:33 Last Admin: 12/28/17 01:42 Dose: 200 mls/hr Vancomycin HCl (Vancomycin 1gm) 1 gm in 250 mls @ 167 mls/hr IVPB Q12 [facility]H PRN Reason: Protocol Last Admin: 12/27/17 21:44 Dose: 167 mls/hr Levetiracetam (Keppra 500mg Ivpb) 500 mg in 100 mls @ 460 mls/hr IV Q12 [facility] Last Admin: 12/27/17 21:44 Dose: 460 mls/hr Dopamine HCl/Dextrose (Dopamine 400mg/250ml D5w) 400 mg in 250 mls @ 5.188 mls/ hr IV .Q24H PRN; Protocol; 5 MCG/KG/MIN PRN Reason: TITRATE PER MD ORDER Last Titration: 12/27/17 12:26 Dose: 10 mcg/kg/min, 10.376 mls/hr Potassium Chloride 40 meq/ (Dextrose/Sodium Chloride) 1,020 mls @ 100 mls/hr IV .[id number] [facility] Last Admin: 12/27/17 21:46 Dose: 100 mls/hr Pantoprazole Sodium (Protonix Inj) 40 mg IVP DAILY [facility] Last Admin: 12/27/17 10:21 Dose: 40 mg - Labs Labs: 12/27/17 17:40 12/27/17 19:55 PT 18.2 SECONDS (9.4-12.5) H 12/27/17 05:15 INR 1.57 12/27/17 05:15 APTT 27.2 Seconds (25.1-36.5) 12/25/17 16:45 - Constitutional Appears: No Acute Distress - Head Exam Head Exam: ATRAUMATIC - Neurological Exam Neuro motor strength exam: Left Upper Extremity: 0, Right Upper Extremity: 0, Left Lower Extremity: 0, Right Lower Extremity: 0 Additional comments: response to pain stimuli, sensation remains intact. Assessment and Plan (1) Seizure Assessment & Plan: Continue all current medical regimen including ICU team management for blood pressure. EEG result is pending. Recommend to treat any electrolyte abnormalities, normothermic. Status: Acute
[2017-12-28 06:19] LABS: BASO # 0.01 K/mm3 (0.0-2.0); BASO % 0.1 % (0.0-3.0); GRAN # 8.82 (1.4-6.5); GRAN % 91.3 % (50.0-68.0); HEMOGLOBIN 13.3 g/dL (12.0-16.0); LYMPH # 0.7 (1.2-3.4); LYMPH % 6.8 % (22.0-35.0); MEAN CELL VOLUME 80.9 fl (80.0-105.0); MEAN CORPUSCULAR HEMOGLOBIN 28.2 pg (25.0-35.0); MEAN CORPUSCULAR HGB CONC 34.8 g/dl (31.0-37.0); MONO # 0.2 (0.1-0.6); MONO % 1.8 % (1.0-6.0); RBC 4.72 10^6/uL (3.5-6.1); RED CELL DISTRIBUTION WIDTH 15.7 % (11.5-14.5); WHITE BLOOD COUNT 9.7 10^3/ul (4.5-11.0)
[2017-12-28] MEDS: DOPamine 400mg/250ml D5W 400 MG/250 ML BAG IV PRN (06:21)
[2017-12-28 06:31] LABS: PLATELET COUNT 39 10^3/uL (120.0-450.0)
[2017-12-28 06:41] LABS: ALB/GLOB RATIO 0.9 (1.1-1.8); ALBUMIN 2.6 g/dL (3.0-4.8); ALT/SGPT 568 U/L (7-56); AST/SGOT 365 U/L (14-36); BLOOD UREA NITROGEN 17 mg/dL (7-21); CALCIUM 7.6 mg/dL (8.4-10.5); GFR NON-AFRICAN AMERICAN > 60
--- NOTE | 2017-12-28 08:34 | PN ---
Copied To: Erasmo Remy MD Attending MD: Erasmo Remy MD DATE: 12/28/2017 [employer] CONSULTANT NOTE LOCATION: At [facility] SUBJECTIVE: The patient continues to be lethargic, resting in bed. Family at bedside. O2 via nasal cannula. O2 saturations are very good. No obvious distress. Still on a warming blanket. The patient is on dopamine to help correct the bradycardia. Her heart rate is up to 47 this morning. PHYSICAL EXAMINATION: VITAL SIGNS: Physical exam note that her temperature is 99.7, pulse is 47, respirations are 18, BP is 125/71. SKIN: Warm and dry. HEENT: Head atraumatic, normocephalic. Eyes reactive to light. Ears, nose and throat seemed to be within normal limits. NECK: Supple. No JVD. No thyroid enlargement or lymph nodes. HEART: Has a normal rhythm, but rate is slow, slightly bradycardic. LUNGS: Reveal good breath sounds bilaterally. ABDOMEN: Soft. Decreased bowel sounds. GENITALIA AND RECTAL: Deferred. MUSCULOSKELETAL: No joint deformities. EXTREMITIES: Reveal no significant lower extremity edema. NEUROLOGICAL: She is lethargic. LABORATORY DATA: As far as her laboratories are concerned, her white count is 9.7, hemoglobin is 13.3, hematocrit 38.2 with platelets of 39,000. Her sodium is 150, potassium 3.5, chloride 113, CO2 of 29 with a BUN of 17, creatinine of 0.7 and a glucose of 159. LFTs continue to be elevated. IMPRESSION: As far as my impression, this patient has possible sepsis with hypothermia and noted hypokalemia this morning as well. She has the right-sided rib fractures, seventh and eighth and atelectasis and possible pneumonia in that area. History of mental retardation and cachexia. The patient has history of falling with possible seizures. She has bradycardia as well as anemia, thrombocytopenia and elevated liver enzymes. PLAN: As far as our plan, we will continue to correct the potassium. The patient is on dopamine IV. She will continue with the D5 half normal saline and is on heparin prophylactically and Keppra, Protonix, hydrocortisone, vancomycin and Zosyn. We will continue to treat aggressively along with the other consultants and the primary care doctor. Erasmo Remy MD
[2017-12-28] MEDS: Vancomycin 1gm in NS 250ml 1 GM/250 ML BAG IVPB SCH (10:09)
[2017-12-28] MEDS: levETIRAcetam 500mg IVPB 500 MG/100 ML BAG IV SCH ×2 (10:09→21:01)
[2017-12-28] MEDS: Potassium Chloride 40 MEQ in Dextrose 5%/0.45% NS 1,000 ML IV SCH ×2 (10:09→21:02)
[2017-12-28] MEDS ORDERED: Gadodiamide 287 MG/ML VIAL (15ML) IV ONE (11:28)
--- NOTE | 2017-12-28 11:37 | PN ---
Copied To: Abdiaziz Sousa MD Attending MD: Abdiaziz Sousa MD DATE: 12/28/2017 SUBJECTIVE: The patient is in bed, in no acute distress, nontoxic. No fevers; however, the patient did have periods of hypothermia. PHYSICAL EXAMINATION: VITAL SIGNS: On exam, temperature is 96.4, it was down to 95 and blood pressure is 135/90, respiratory rate of 18, heart rate of 55. HEENT: Examination of HEENT is unremarkable. NECK: Supple. LUNGS: Have decreased breath sounds. HEART: Normal S1, S2. ABDOMEN: Soft, nontender. LABORATORY DATA: Laboratory examination reveals the patient's white count is 9, hemoglobin of 13, platelets of 39. Chemistries reveals a BUN of 17, creatinine of 0.7. LFTs are elevated. The alk phos is 630. Procalcitonin is 0.99. Urinalysis is noted and that is from 12/25/2017. Microbiology reveals negative nasal MRSA, negative urine cultures, negative blood cultures. Review of orders reveals the patient to be on Solu-Cortef, vancomycin, Zosyn. Dr. Remy's progress note from today is reviewed. Dr. Pritchett's progress note from yesterday is reviewed. progress note from today is reviewed. ASSESSMENT AND PLAN: A 42-year-old female, seen in the ICU 129, bed six earlier who is end stage, cachectic, chronically ill, unresponsive, mentally disability, developmental delay and found to have seizures, systemic inflammatory response syndrome with hypoglycemia, cachectic, malnutrition with negative blood cultures, negative urine cultures, negative methicillin-resistant Staphylococcus aureus screen. Has liver function test elevations. No evidence of infection. Possible atelectasis versus pneumonia with mild elevation of procalcitonin. Negative cultures. Etiology of the hypothermia is not entirely clear, although the LFTs are elevated. The patient's albumin is 2.6 with bilirubin mildly elevated. Coagulation is essentially normal. I doubt the hypoglycemia being from underlying liver disease, although the LFTs are elevated. Dr. Rizo's consultation from 12/26/2017 is reviewed. LFTs are elevated, but not extremely high, from hypotension. Protein calorie malnutrition, albumin. Etiology of the LFT elevation is not entirely clear. Appears to be on downward. The hypothermia is not entirely clear with no evidence of infection. Hepatitis profile is pending. We will follow with you. Overall prognosis is quite poor. Abdiaziz Sousa MD
--- NOTE | 2017-12-28 12:14 | MRI ---
Date of service: 12/28/2017 PROCEDURE: MRI brain without contrast HISTORY: RULE OUT MASS COMPARISON: Noncontrast head CT from 12/26/2017 TECHNIQUE: MRI of the brain without intravenous contrast was attempted however the patient was unable to cooperate and examination was terminated due to severe motion degraded images and lack of diagnostic quality. FINDINGS: As above IMPRESSION: Examination were terminated due to significant patient motion and lack of diagnostic quality.
--- NOTE | 2017-12-28 12:56 | CARD ---
APPROVED REPORT Date of service: 12/27/2017 EKG Measurement Heart [id number] <Conclusion> Marked sinus bradycardia with Junctional escape T wave abnormality, consider anterior ischemia Abnormal ECG
--- NOTE | 2017-12-28 14:55 | CP.PCM.PN ---
<Tenzin Welch - Last Filed: 12/28/17 14:46> Subjective - Date & Time of Evaluation Date of Evaluation: 12/28/17 Time of Evaluation: 14:46 - Subjective Subjective: Tenzin Welch DO PGY1 - Internal Medicine Radio Station Operator - Hospital Progress Patient was seen and examined this AM at bedside in ICU. No acute events overnight; patient much more responsive this morning than days prior. She is spontaneously opening her eyes to verbal stimulus and answering back w/ appropriate statments to questions. Albeit she is still lethargic ROS is still unobtainable at this time Objective - Vital Signs/Intake and Output Vital Signs (last 24 hours): Temp Pulse Resp BP Pulse Ox 95.2 F L 37 L 15 105/60 100 12/28/17 12:14 12/28/17 12:14 12/28/17 12:14 12/28/17 12:15 12/28/17 12:14 Intake and Output: 12/28/17 12/28/17 06:59 18:59 Intake Total 200 35 Balance 200 35 - Medications Medications: Current Medications Heparin Sodium (Porcine) (Heparin) 5,000 units SC Q12 NASH PRN Reason: Protocol Last Admin: 12/27/17 21:44 Dose: 5,000 units Hydrocortisone Sodium Succinate (Solu-Cortef) 50 mg IVP DAILY [facility] Norepinephrine Bitartrate 8 mg (/ Sodium Chloride) 508 mls @ 15.24 mls/hr IV .Q24H PRN; Protocol; 4 MCG/MIN PRN Reason: TITRATE PER MD ORDER Last Titration: 12/26/17 23:46 Dose: 0 mcg/min, 0 mls/hr Piperacillin Sod/Tazobactam Sod (Zosyn 3.375 In Ns 100ml) 100 mls @ 200 mls/hr IVPB Q6 NASH PRN Reason: Protocol Stop: 01/01/18 20:33 Last Admin: 12/28/17 12:48 Dose: 200 mls/hr Vancomycin HCl (Vancomycin 1gm) 1 gm in 250 mls @ 167 mls/hr IVPB Q12 NASH PRN Reason: Protocol Last Admin: 12/28/17 10:09 Dose: 167 mls/hr Levetiracetam (Keppra 500mg Ivpb) 500 mg in 100 mls @ 460 mls/hr IV Q12 NASH Last Admin: 12/28/17 10:09 Dose: 460 mls/hr Dopamine HCl/Dextrose (Dopamine 400mg/250ml D5w) 400 mg in 250 mls @ 5.188 mls/ hr IV .Q24H PRN; Protocol; 5 MCG/KG/MIN PRN Reason: TITRATE PER MD ORDER Last Titration: 12/28/17 12:24 Dose: 8 mcg/kg/min, 8.301 mls/hr Potassium Chloride 40 meq/ (Dextrose/Sodium Chloride) 1,020 mls @ 100 mls/hr IV .[id number] NASH Last Admin: 12/28/17 10:09 Dose: 100 mls/hr Pantoprazole Sodium (Protonix Inj) 40 mg IVP DAILY [facility] Last Admin: 12/28/17 10:08 Dose: 40 mg - Labs Labs: 12/28/17 05:30 12/28/17 05:30 PT 18.2 SECONDS (9.4-12.5) H 12/27/17 05:15 INR 1.57 12/27/17 05:15 APTT 27.2 Seconds (25.1-36.5) 12/25/17 16:45 Physical Exam - Constitutional Appears: No Acute Distress, Younger Than Stated Age, Cachectic, Chronically Ill , More responsive today than day prior - Head Exam Additional comments: Echymosis appreciated under R eye improving L upper lid with significant swelling improving - Eye Exam Additional comments: Less sluggish; responsive - ENT Exam Additional comments: Poor dentition - Respiratory Exam Respiratory Exam: Clear to Ausculation Bilateral, NORMAL BREATHING PATTERN. absent: Respiratory Distress - Cardiovascular Exam Cardiovascular Exam: Bradycardia, REGULAR RHYTHM, +S1, +S2. absent: JVD, Rubs, Murmur - GI/Abdominal Exam GI & Abdominal Exam: Soft. absent: Tenderness - Extremities Exam Additional comments: UE and LE BL appear to be Atrophied; Distal pulses difficult to palpate; limbs do not appear to be ischemic - Neurological Exam Neurological Exam: Altered Additional comments: GCS 12 -[id number] Opening eyes to verbal stimuli, Responds to greetings / questions as she does at baseline, Withdraws from painful stimuli Babinski reflexes within normal limit - Skin Skin Exam: Dry, Intact Assessment and Plan - Assessment and Plan (Free Text) Assessment: 42F with PMH of developmental delay reported to have absence seizure and BL LE weakness prior to admission; was found to have altered mental status, significant hypotension, bradycardia, hypothermia, liver failure, and paroxysmal atrial fibrillation; admitted to ICU for further workup and management. Plan: AMS - Improving Etiologies: Post-Ictal State vs. Septic Encephalopathy vs. Hepatic Encephalopathy vs. ACS vs. Intoxication Appears to be improving today; Less lethargic than prior encounters; MRI unable to be completed yesterday as patient began moving too much in exam -CT Head on admission showed no acute intracranial abnormality. mild anterior scalp and periorbital edema. -Repeat CT head showed limited left greater right periorbital and bilateral frontal scattered soft tissue edema changes -CT Chest, Abdomen and Pelvis showed edema of mesenteric fat and ascites. left- sided rib fractures with atelectasis or pneumonia in the LLL -Chest X-Ray showed no acute findings -EEG pending -Prolactin elevated at 29.2 -Ammonia mildly elevated at 37 -Four serial troponins negative -UA without signs of UTI -UDS and Acetaminophen levels negative -HIV pending -Blood Cx 1/2 Positive @ 48H - GNR -Blood Cx 1/2 negative@ 48H -Sent for repeat set 12/28 PM -UCx negative; MRSA screen negative -Continue emperic IV Vancomycin 1gm Q12 and IVPB Zosyn 3.375 Q6 ; Day 3 -IV Keppra 1000mg ONCE; Then Keppra 500mg BID -Neuro checks Q2 and fall/aspiration/seizure precautions -Neurology, ID, Cardiology, and GI consulted, all recommendations appreciated Acute Liver Failure - Improving Etiologies: Shock Liver vs. Inflammatory vs. Infectious vs. Drug-Induced -CT Chest, Abdomen and Pelvis showed findings as above -Abdominal US showed atrophied liver. diffuse increased echogenicity in liver may reflect hepatic steatosis however parenchymal infectious/inflammatory etiologies cannot be excluded. bilateral renal atrophy. -Total Bilirubin/AST/ALT/ALP: 0.7/>750/788/707 (downtrending) -Hepatitis and HIV workup pending -Acetaminophen levels negative -GI Consulted, all recommendations appreciated Hypotension - Improved -Initially on levophed drip -Has not required pressors in last 24H -MAPs significantly improved over last 24H -Maintaining pressures well -Continue D5 1/2 @125mls/hr -Continue to monitor Q15min Bradycardia -EKG and monitoring coordinator showing sinus bradycardia in the 40-50 beats/min range -S/P Atropine 0.5mg -Continue to monitor with telemetry monitoring in ICU -Decreased dopamine drip rate today -Cardiology following, all recommendations appreciated Fractured Left Ribs 7-9 -CT Chest, Abdomen and Pelvis findings as above -Ribs X-Ray - fractures in the left 7th and 8th ribs -Will hold pain medication at this time due to AMS Hypkalemia/Hypomag Repleted today 60meqK+/ 1gm Mg Recheck tomorrow Microcytic Normochromic Anemia -H/H at 7.3/22.0 (9.0/27.2 on admission) -S/P two units FFP; Two units pRBC -Hb 13.3 this AM Improving -2U pRBC prepared for further transfusion -Transvaginal US, CA-125, and FOBT pending -Continue to monitor with daily CBCs Paroxysmal Atrial Fibrillation - Ruled out - Most likely due to artifact -EKG on admission showed atrial fibrillation at 71 beats/min with prolonged QTc at 493 -Repeat EKGs showing NSR -[id number] score: 1 -Echocardiogram pending -Continue to monitor with telemetry monitoring Access: Right IJ TLC and PIV Diet: NPO; Consider NG tube vs PO GI Prophylaxis: Protonix IVP DVT Prophylaxis: Heparin SC Disposition: Patient is full code, clinical status much improved from day prior ; no issues overnight; continued ICU management at this time. Patient seen and case discussed with attending, Dr. Berrios. Tenzin Welch DO PGY1 - Internal Medicine Radio Station Operator - Pager [phone] <Brandon Berrios - Last Filed: 12/28/17 18:15> Objective - Vital Signs/Intake and Output Vital Signs (last 24 hours): Temp Pulse Resp BP Pulse Ox 97.0 F L 41 L 22 112/63 98 12/28/17 17:20 12/28/17 17:37 12/28/17 17:20 12/28/17 17:00 12/28/17 17:20 Intake and Output: 12/28/17 12/28/17 06:59 18:59 Intake Total 200 1895 Output Total 950 Balance 200 945 - Medications Medications: Current Medications Heparin Sodium (Porcine) (Heparin) 5,000 units SC Q12 NASH PRN Reason: Protocol Last Admin: 12/27/17 21:44 Dose: 5,000 units Hydrocortisone Sodium Succinate (Solu-Cortef) 50 mg IVP DAILY [facility] Norepinephrine Bitartrate 8 mg (/ Sodium Chloride) 508 mls @ 15.24 mls/hr IV .Q24H PRN; Protocol; 4 MCG/MIN PRN Reason: TITRATE PER MD ORDER Last Titration: 12/26/17 23:46 Dose: 0 mcg/min, 0 mls/hr Piperacillin Sod/Tazobactam Sod (Zosyn 3.375 In Ns 100ml) 100 mls @ 200 mls/hr IVPB Q6 NASH PRN Reason: Protocol Stop: 01/01/18 20:33 Last Admin: 12/28/17 17:15 Dose: 200 mls/hr Vancomycin HCl (Vancomycin 1gm) 1 gm in 250 mls @ 167 mls/hr IVPB Q12 ANSH PRN Reason: Protocol Last Admin: 12/28/17 10:09 Dose: 167 mls/hr Levetiracetam (Keppra 500mg Ivpb) 500 mg in 100 mls @ 460 mls/hr IV Q12 NASH Last Admin: 12/28/17 10:09 Dose: 460 mls/hr Dopamine HCl/Dextrose (Dopamine 400mg/250ml D5w) 400 mg in 250 mls @ 5.188 mls/ hr IV .Q24H PRN; Protocol; 5 MCG/KG/MIN PRN Reason: TITRATE PER MD ORDER Last Titration: 12/28/17 12:24 Dose: 8 mcg/kg/min, 8.301 mls/hr Potassium Chloride 40 meq/ (Dextrose/Sodium Chloride) 1,020 mls @ 100 mls/hr IV .[id number] [facility] Last Admin: 12/28/17 10:09 Dose: 100 mls/hr Pantoprazole Sodium (Protonix Inj) 40 mg IVP DAILY [facility] Last Admin: 12/28/17 10:08 Dose: 40 mg - Labs Labs: 12/28/17 05:30 12/28/17 15:18 PT 18.2 SECONDS (9.4-12.5) H 12/27/17 05:15 INR 1.57 12/27/17 05:15 APTT 27.2 Seconds (25.1-36.5) 12/25/17 16:45 Attending/Attestation - Attestation I have personally seen and examined this patient.: Yes I have fully participated in the care of the patient.: Yes I have reviewed all pertinent clinical information, including history, physical exam and plan: Yes Notes (Text): 12/28/17 18:10 42 year old female with past medical history of developmental delay who presented with seizure at home. She was found to have hypothermia, hypotension, bradycardia and transaminitis. CT head was negative for acute findings except mild anterior scalp and periorbital edema. CT chest/abdomen/pelvis showed anasarca, ascites, left sided rib fractures and LLL atelecatasis or pneumonia. Rib fracture and periorbital edema findings were discussed with the mother at bedside; she denied any recent fall, trauma or abuse. GI is following. Transaminitis possibly secondary to shock liver is slowly improving. Hepatitis panel was negative. Transvaginal ultrasound was ordered and CA 125 was within normal limits. Neurology evaluation was appreciated. EEG was done with pending read. MRI brain done today but limited study. Patient is started on keppra. Cardiology is also following for bradycardia and patient is on dopamine drip with mild improvement of heart rate. She has been on levophed. Will begin to taper her stress dose steroids. Patient is on broad spectrum antibiotics as per ID. Will follow up on cultures. Anemia improved after prbc transfusion. Will replete and repeat lytes (potassium). Hypernatremia has improved. Continue to monitor mental status closely; consider feeds. tailings worker evaluation was requested. Brandon Berrios MD Hospitalist.
[2017-12-28 15:38] LABS: ALB/GLOB RATIO 0.8 (1.1-1.8); ALBUMIN 2.2 g/dL (3.0-4.8); ALT/SGPT 558 U/L (7-56); AST/SGOT 555 U/L (14-36); BLOOD UREA NITROGEN 16 mg/dL (7-21); CALCIUM 7.7 mg/dL (8.4-10.5); GFR NON-AFRICAN AMERICAN > 60
--- NOTE | 2017-12-28 16:44 | PN ---
Copied To: Bhavik Pritchett MD Attending MD: Bhavik Pritchett MD DATE: 12/28/2017 LOCATION: Patient in CCU, room 129, bed 6. This progress note is being dictated on behalf of Dr. Newton, whom I am covering. REASON FOR CONSULTATION: Bradycardia, hypothermia. Initially, it was thought that patient on admission had atrial fibrillation. I reviewed the EKG, but it was artifact and there was no atrial fibrillation. Patient continued to be in sinus bradycardia and patient is unresponsive. SUBJECTIVE: Patient continued to be unresponsive, mentally challenged patient, cachexia and malnutrition, also found to have hypoglycemia on admission. There is a question about seizures at home. Patient also found to have rib fractures, so there is a question about the fall. Patient also had hypothermia on admission. PHYSICAL EXAMINATION: VITAL SIGNS: Blood pressure is 105/60, respirations 15, pulse at times 49 to 40, temperature again 95.2. HEENT: Head is normocephalic. Eyes: Pupils normal, conjunctivae slightly pale. NECK: JVP low, carotid equal. THORAX: AP diameter normal. LUNGS: No significant rales. CARDIOVASCULAR: S1, S2. ABDOMEN: Soft. No tenderness. Bowels are normal. EXTREMITIES: No clubbing. No cyanosis. LABORATORY DATA: WBC 9.7, hemoglobin 13.3, hematocrit 38.2, and platelets 39. Sodium 150, potassium 3.5. BUN 17, creatinine 0.7. Sugar 159. AST 365, ALT 568, alkaline phosphatase 630. Total protein 5.4, albumin 2.6. Echo done on 12/26/2017, showed LV size normal. Normal LV systolic function. Ejection fraction about 54%. Moderate mitral regurgitation. Moderate tricuspid regurgitation. RVSP 57 mmHg suggestive of [id number] pulmonary hypertension. DIAGNOSES: Patient unresponsive, hypoglycemia, question of fall versus seizure disorder, liver enzymes elevated, hypokalemia, hypernatremia, hypothermia, thrombocytopenia, anemia, status post blood transfusions, bradycardia, mentally challenged patient, cachexia, low proteins, malnutrition. PLAN: Patient getting D5W with potassium and IV. Patient on dopamine drip for bradycardia. Heparin 5000 units subcutaneous every 12 hours, which has been put on hold because of low platelet count. Levitra 500 mg every 12 hours. potassium, piggyback also ordered, Protonix 40 IV daily, hydrocortisone 50 mg IV every 6 hours, vancomycin 1 g IV every 12 hours, piperacillin and tazobactam 100 mL IV every 6 hours. We will continue present therapy and Dr. Newton will be following the patient starting tomorrow. Bhavik Pritchett MD
--- NOTE | 2017-12-28 17:37 | RAD ---
Date of service: 12/28/2017 HISTORY: s/p ngt placement COMPARISON: 12/26/2017 FINDINGS: The nasogastric tube terminates in the stomach. The right IJV line terminates in the right atrium. LUNGS: The lungs are well inflated. The right lung is clear. There is interval development of left perihilar airspace disease. PLEURA: Bilateral pleural effusions. No pneumothorax. CARDIOVASCULAR: Normal. OSSEOUS STRUCTURES: No significant abnormalities. VISUALIZED UPPER ABDOMEN: Normal. OTHER FINDINGS: None. IMPRESSION: Nasogastric tube terminates in the stomach. Interval development of left perihilar airspace disease which may represent pulmonary edema or pneumonia. Follow-up is advised. Small pleural effusions.
[2017-12-28] MEDS: Meropenem IV 1 gm in NS 50 ML IVPB SCH (21:02)
[2017-12-29] MEDS: Meropenem IV 1 gm in NS 50 ML IVPB SCH ×5 (01:52→22:14)
[2017-12-29 08:47] LABS: EOS % 0.1 % (1.5-5.0); GRAN # 9.67 (1.4-6.5); GRAN % 89.6 % (50.0-68.0); HEMOGLOBIN 10.8 g/dL (12.0-16.0); LYMPH # 0.9 (1.2-3.4); LYMPH % 8.5 % (22.0-35.0); MEAN CELL VOLUME 82.6 fl (80.0-105.0); MEAN CORPUSCULAR HEMOGLOBIN 27.6 pg (25.0-35.0); MEAN CORPUSCULAR HGB CONC 33.4 g/dl (31.0-37.0); MONO # 0.2 (0.1-0.6); MONO % 1.8 % (1.0-6.0); RBC 3.91 10^6/uL (3.5-6.1); RED CELL DISTRIBUTION WIDTH 15.8 % (11.5-14.5); WHITE BLOOD COUNT 10.8 10^3/ul (4.5-11.0)
[2017-12-29 08:54] LABS: PLATELET COUNT 32 10^3/uL (120.0-450.0)
[2017-12-29 09:14] LABS: ALB/GLOB RATIO 0.8 (1.1-1.8); ALBUMIN 2.1 g/dL (3.0-4.8); ALT/SGPT 485 U/L (7-56); AST/SGOT 337 U/L (14-36); BLOOD UREA NITROGEN 16 mg/dL (7-21); CALCIUM 7.7 mg/dL (8.4-10.5); GFR NON-AFRICAN AMERICAN > 60
[2017-12-29] MEDS ORDERED: Potassium Phosphate 15 MMOLE in Sodium Chloride 0.9% 250 ML IVPB ONE ×2 (09:18→09:48)
[2017-12-29] MEDS: levETIRAcetam 500mg IVPB 500 MG/100 ML BAG IV SCH ×2 (10:18→22:16)
[2017-12-29] MEDS: Potassium Chloride 40 MEQ in Dextrose 5%/0.45% NS 1,000 ML IV SCH (10:25)
[2017-12-29 10:37] LABS: INR 1.32; PARTIAL THROMBOPLASTIN TIME 35.9 Seconds (25.1-36.5); PROTHROMBIN TIME 15.3 SECONDS (9.4-12.5)
--- NOTE | 2017-12-29 11:42 | CP.CCUPN ---
<Tenzin Welch - Last Filed: 12/29/17 11:38> CCU Subjective - Physician Review Subjective (Free Text): 12/29/17 11:39 Tenzin Welch DO PGy1 - Internal Medicine [employer]orer [employer] - ICU Progress Note Seen and examined this morning at bedside in ICU. Overnight patient pulled out NG tube Patient appears to be much more responsive today than prior encounters. However still not able to provide complete ROS; Critical Care Time Spent (in minutes): 60 CCU Objective - Vital Signs / Intake & Output Intake and Output (Last 8hrs): Intake & Output 12/28/17 12/29/17 12/29/17 22:59 06:59 14:59 Intake Total 1860 3866 Output Total 950 950 Balance 910 2916 Weight 63 lb Intake: IV 1850 3856 Left Antecubital 400 Right External Jugular 1500 Right Forearm 106 Right Internal Jugular 1850 1850 Tube Feeding 10 10 Output: Urine 950 950 Urethral (Jimenez) 950 950 Other: # Bowel Movements 1 1 - Physical Exam Head: Positive for: Atraumatic, Normocephalic Pupils: Positive for: PERRL Extroacular Muscles: Positive for: EOMI Conjunctiva: Positive for: Normal Mouth: Positive for: Moist Mucous Membranes Neck: Positive for: Normal Range of Motion Respiratory/Chest: Positive for: Clear to Auscultation, Good Air Exchange, Tachypneic, Other (contracted to left side ). Negative for: Respiratory Distress, Accessory Muscle Use, Wheezes, Decreased Breath Sounds, Rales, Retracting, Rhonchi, Tender to Palpation Cardiovascular: Positive for: Regular Rate and Rhythm, Normal S1, S2. Negative for: Murmurs Abdomen: Positive for: Other (Abdomen is scaphoid;). Negative for: Tenderness, Distention, Normal Bowel Sounds, Peritoneal Signs, Rebound, Guarding, McBurney' s Point Tender, Rovsing's Sign Present, Hernias, Feeding Tubes, Ostomy Tubes, Mass/Organomegaly, Scars Back: Positive for: Normal Inspection Upper Extremity: Positive for: Normal Inspection. Negative for: Cyanosis, Edema Lower Extremity: Positive for: Normal Inspection, NORMAL PULSES ( pulses strong and equal, bilateral and present). Negative for: Edema Skin: Positive for: Warm, Dry, Normal Color. Negative for: Rashes Psychiatric: Positive for: Alert, Lethargic - Medications Active Medications: Active Medications Generic Name Dose Route Start Last Admin Trade Name Freq PRN Reason Stop Dose Admin Hydrocortisone Sodium Succinate 50 mg 12/29/17 10:00 12/29/17 10:19 Solu-Cortef IVP 50 mg DAILY NASH Administration Norepinephrine Bitartrate 8 mg 508 mls @ 15.24 mls/hr 12/25/17 20:06 23:46 / Sodium Chloride IV 0 mcg/min .Q24H PRN 0 mls/hr TITRATE PER MD ORDER Titration Protocol 4 MCG/MIN Levetiracetam 500 mg in 100 mls @ 460 mls/hr 12/27/17 07:57 12/29/17 10:18 Keppra 500mg Ivpb IV 460 mls/hr Q12 NASH Administration Dopamine HCl/Dextrose 400 mg in 250 mls @ 5.188 mls/hr 12/27/17 08:40 12:24 Dopamine 400mg/250ml D5w IV 8 mcg/kg/min .Q24H PRN 8.301 mls/hr TITRATE PER MD ORDER Titration Protocol 5 MCG/KG/MIN Potassium Chloride 40 meq/ 1,020 mls @ 100 mls/hr 12/27/17 21:15 12/29/17 10: 25 Dextrose/Sodium Chloride IV 100 mls/hr .[id number] NASH Administration Meropenem 50 mls @ 100 mls/hr 12/28/17 19:07 12/29/17 10:23 Merrem Iv 1 Gm Premix IVPB 01/06/18 19:08 100 mls/hr Q8 NASH Administration Protocol Potassium Phosphate 15 mmole/ 255 mls @ 42.5 mls/hr 12/29/17 09:18 12/29/17 10:35 Sodium Chloride IVPB 12/29/17 15:17 42.5 mls/hr ONCE ONE Administration Pantoprazole Sodium 40 mg 12/26/17 10:00 12/29/17 10:19 Protonix Inj IVP 40 mg DAILY NASH Administration - Patient Studies Lab Studies: Lab Studies 12/29/17 12/29/17 12/29/17 Range/Units 11:25 10:15 08:30 WBC (4.5-11.0) 10^3/ul RBC (3.5-6.1) 10^6/uL Hgb (12.0-16.0) g/dL Hct (36.0-48.0) % MCV (80.0-105.0) fl MCH (25.0-35.0) pg MCHC (31.0-37.0) g/dl RDW (11.5-14.5) % Plt Count (120.0-450.0) 10^3/uL Gran % (50.0-68.0) % Lymph % (Auto) (22.0-35.0) % Carbon % (Auto) (1.0-6.0) % Eos % (Auto) (1.5-5.0) % Baso % (Auto) (0.0-3.0) % Gran # (1.4-6.5) Lymph # (Auto) (1.2-3.4) Carbon # (Auto) (0.1-0.6) Eos # (Auto) (0.0-0.7) Baso # (Auto) (0.0-2.0) K/mm3 PT 15.3 H (9.4-12.5) SECONDS INR 1.32 APTT 35.9 (25.1-36.5) Seconds Sodium 146 (132-148) mmol/L Potassium 4.2 (3.6-5.0) mmol/L Chloride 111 H (98-107) mmol/L Carbon Dioxide 33 (21-33) mmol/L Anion Gap 6 L (10-20) BUN 16 (7-21) mg/dL Creatinine 0.6 L (0.7-1.2) mg/dl Est GFR ( Amer) > 60 Est GFR (Non-Af Amer) > 60 POC Glucose (mg/dL) 120 H (65-110) mg/dL Random Glucose 110 (70-110) mg/dL Calcium 7.7 L (8.4-10.5) mg/dL Phosphorus 1.2 L* (2.5-4.5) mg/dL Magnesium 1.7 (1.7-2.2) mg/dL Total Bilirubin 1.0 (0.2-1.3) mg/dL AST 337 H D (14-36) U/L ALT 485 H (7-56) U/L Alkaline Phosphatase 527 H (38-126) U/L Total Protein 4.6 L (5.8-8.3) g/dL Albumin 2.1 L (3.0-4.8) g/dL Globulin 2.5 gm/dL Albumin/Globulin Ratio 0.8 L (1.1-1.8) Hep Bs Antibody (NEGATIVE) Crossmatch 12/29/17 12/29/17 12/29/17 Range/Units 08:30 07:32 04:11 WBC 10.8 (4.5-11.0) 10^3/ul RBC 3.91 (3.5-6.1) 10^6/uL Hgb 10.8 L D (12.0-16.0) g/dL Hct 32.3 L (36.0-48.0) % MCV 82.6 (80.0-105.0) fl MCH 27.6 (25.0-35.0) pg MCHC 33.4 (31.0-37.0) g/dl RDW 15.8 H (11.5-14.5) % Plt Count 32 L* (120.0-450.0) 10^3/uL Gran % 89.6 H (50.0-68.0) % Lymph % (Auto) 8.5 L (22.0-35.0) % Carbon % (Auto) 1.8 (1.0-6.0) % Eos % (Auto) 0.1 L (1.5-5.0) % Baso % (Auto) 0.0 (0.0-3.0) % Gran # 9.67 H (1.4-6.5) Lymph # (Auto) 0.9 L (1.2-3.4) Carbon # (Auto) 0.2 (0.1-0.6) Eos # (Auto) 0.0 (0.0-0.7) Baso # (Auto) 0.00 (0.0-2.0) K/mm3 PT (9.4-12.5) SECONDS INR APTT (25.1-36.5) Seconds Sodium (132-148) mmol/L Potassium (3.6-5.0) mmol/L Chloride (98-107) mmol/L Carbon Dioxide (21-33) mmol/L Anion Gap (10-20) BUN (7-21) mg/dL Creatinine (0.7-1.2) mg/dl Est GFR ( Amer) Est GFR (Non-Af Amer) POC Glucose (mg/dL) 131 H 127 H (65-110) mg/dL Random Glucose (70-110) mg/dL Calcium (8.4-10.5) mg/dL Phosphorus (2.5-4.5) mg/dL Magnesium (1.7-2.2) mg/dL Total Bilirubin (0.2-1.3) mg/dL AST (14-36) U/L ALT (7-56) U/L Alkaline Phosphatase (38-126) U/L Total Protein (5.8-8.3) g/dL Albumin (3.0-4.8) g/dL Globulin gm/dL Albumin/Globulin Ratio (1.1-1.8) Hep Bs Antibody (NEGATIVE) Crossmatch 12/28/17 12/28/17 12/28/17 Range/Units 23:42 19:40 16:02 WBC (4.5-11.0) 10^3/ul RBC (3.5-6.1) 10^6/uL Hgb (12.0-16.0) g/dL Hct (36.0-48.0) % MCV (80.0-105.0) fl MCH (25.0-35.0) pg MCHC (31.0-37.0) g/dl RDW (11.5-14.5) % Plt Count (120.0-450.0) 10^3/uL Gran % (50.0-68.0) % Lymph % (Auto) (22.0-35.0) % Carbon % (Auto) (1.0-6.0) % Eos % (Auto) (1.5-5.0) % Baso % (Auto) (0.0-3.0) % Gran # (1.4-6.5) Lymph # (Auto) (1.2-3.4) Carbon # (Auto) (0.1-0.6) Eos # (Auto) (0.0-0.7) Baso # (Auto) (0.0-2.0) K/mm3 PT (9.4-12.5) SECONDS INR APTT (25.1-36.5) Seconds Sodium (132-148) mmol/L Potassium (3.6-5.0) mmol/L Chloride (98-107) mmol/L Carbon Dioxide (21-33) mmol/L Anion Gap (10-20) BUN (7-21) mg/dL Creatinine (0.7-1.2) mg/dl Est GFR ( Amer) Est GFR (Non-Af Amer) POC Glucose (mg/dL) 125 H 141 H 134 H (65-110) mg/dL Random Glucose (70-110) mg/dL Calcium (8.4-10.5) mg/dL Phosphorus (2.5-4.5) mg/dL Magnesium (1.7-2.2) mg/dL Total Bilirubin (0.2-1.3) mg/dL AST (14-36) U/L ALT (7-56) U/L Alkaline Phosphatase (38-126) U/L Total Protein (5.8-8.3) g/dL Albumin (3.0-4.8) g/dL Globulin gm/dL Albumin/Globulin Ratio (1.1-1.8) Hep Bs Antibody (NEGATIVE) Crossmatch 12/28/17 12/28/17 12/26/17 Range/Units 15:18 12:15 11:00 WBC (4.5-11.0) 10^3/ul RBC (3.5-6.1) 10^6/uL Hgb (12.0-16.0) g/dL Hct (36.0-48.0) % MCV (80.0-105.0) fl MCH (25.0-35.0) pg MCHC (31.0-37.0) g/dl RDW (11.5-14.5) % Plt Count (120.0-450.0) 10^3/uL Gran % (50.0-68.0) % Lymph % (Auto) (22.0-35.0) % Carbon % (Auto) (1.0-6.0) % Eos % (Auto) (1.5-5.0) % Baso % (Auto) (0.0-3.0) % Gran # (1.4-6.5) Lymph # (Auto) (1.2-3.4) Carbon # (Auto) (0.1-0.6) Eos # (Auto) (0.0-0.7) Baso # (Auto) (0.0-2.0) K/mm3 PT (9.4-12.5) SECONDS INR APTT (25.1-36.5) Seconds Sodium 148 (132-148) mmol/L Potassium 4.1 (3.6-5.0) mmol/L Chloride 112 H (98-107) mmol/L Carbon Dioxide 31 (21-33) mmol/L Anion Gap 9 L (10-20) BUN 16 (7-21) mg/dL Creatinine 0.7 (0.7-1.2) mg/dl Est GFR ( Amer) > 60 Est GFR (Non-Af Amer) > 60 POC Glucose (mg/dL) 127 H (65-110) mg/dL Random Glucose 133 H (70-110) mg/dL Calcium 7.7 L (8.4-10.5) mg/dL Phosphorus (2.5-4.5) mg/dL Magnesium 1.7 (1.7-2.2) mg/dL Total Bilirubin 1.7 H (0.2-1.3) mg/dL AST 555 H D (14-36) U/L ALT 558 H (7-56) U/L Alkaline Phosphatase 611 H (38-126) U/L Total Protein 4.8 L (5.8-8.3) g/dL Albumin 2.2 L (3.0-4.8) g/dL Globulin 2.6 gm/dL Albumin/Globulin Ratio 0.8 L (1.1-1.8) Hep Bs Antibody Negative (NEGATIVE) Crossmatch 12/26/17 Range/Units 03:00 WBC (4.5-11.0) 10^3/ul RBC (3.5-6.1) 10^6/uL Hgb (12.0-16.0) g/dL Hct (36.0-48.0) % MCV (80.0-105.0) fl MCH (25.0-35.0) pg MCHC (31.0-37.0) g/dl RDW (11.5-14.5) % Plt Count (120.0-450.0) 10^3/uL Gran % (50.0-68.0) % Lymph % (Auto) (22.0-35.0) % Carbon % (Auto) (1.0-6.0) % Eos % (Auto) (1.5-5.0) % Baso % (Auto) (0.0-3.0) % Gran # (1.4-6.5) Lymph # (Auto) (1.2-3.4) Carbon # (Auto) (0.1-0.6) Eos # (Auto) (0.0-0.7) Baso # (Auto) (0.0-2.0) K/mm3 PT (9.4-12.5) SECONDS INR APTT (25.1-36.5) Seconds Sodium (132-148) mmol/L Potassium (3.6-5.0) mmol/L Chloride (98-107) mmol/L Carbon Dioxide (21-33) mmol/L Anion Gap (10-20) BUN (7-21) mg/dL Creatinine (0.7-1.2) mg/dl Est GFR ( Amer) Est GFR (Non-Af Amer) POC Glucose (mg/dL) (65-110) mg/dL Random Glucose (70-110) mg/dL Calcium (8.4-10.5) mg/dL Phosphorus (2.5-4.5) mg/dL Magnesium (1.7-2.2) mg/dL Total Bilirubin (0.2-1.3) mg/dL AST (14-36) U/L ALT (7-56) U/L Alkaline Phosphatase (38-126) U/L Total Protein (5.8-8.3) g/dL Albumin (3.0-4.8) g/dL Globulin gm/dL Albumin/Globulin Ratio (1.1-1.8) Hep Bs Antibody (NEGATIVE) Crossmatch See Detail Laboratory Results - last 24 hr 12/26/17 12/26/17 12/28/17 03:00 11:00 12:15 WBC RBC Hgb Hct MCV MCH MCHC RDW Plt Count Gran % Lymph % (Auto) Carbon % (Auto) Eos % (Auto) Baso % (Auto) Gran # Lymph # (Auto) Carbon # (Auto) Eos # (Auto) Baso # (Auto) PT INR APTT Sodium Potassium Chloride Carbon Dioxide Anion Gap BUN Creatinine Est GFR ( Amer) Est GFR (Non-Af Amer) POC Glucose (mg/dL) 127 H Random Glucose Calcium Phosphorus Magnesium Total Bilirubin AST ALT Alkaline Phosphatase Total Protein Albumin Globulin Albumin/Globulin Ratio Hep Bs Antibody Negative Crossmatch See Detail 12/28/17 12/28/17 12/28/17 15:18 16:02 19:40 WBC RBC Hgb Hct MCV MCH MCHC RDW Plt Count Gran % Lymph % (Auto) Carbon % (Auto) Eos % (Auto) Baso % (Auto) Gran # Lymph # (Auto) Carbon # (Auto) Eos # (Auto) Baso # (Auto) PT INR APTT Sodium 148 Potassium 4.1 Chloride 112 H Carbon Dioxide 31 Anion Gap 9 L BUN 16 Creatinine 0.7 Est GFR ( Amer) > 60 Est GFR (Non-Af Amer) > 60 POC Glucose (mg/dL) 134 H 141 H Random Glucose 133 H Calcium 7.7 L Phosphorus Magnesium 1.7 Total Bilirubin 1.7 H AST 555 H D ALT 558 H Alkaline Phosphatase 611 H Total Protein 4.8 L Albumin 2.2 L Globulin 2.6 Albumin/Globulin Ratio 0.8 L Hep Bs Antibody Crossmatch 12/28/17 12/29/17 12/29/17 23:42 04:11 07:32 WBC RBC Hgb Hct MCV MCH MCHC RDW Plt Count Gran % Lymph % (Auto) Carbon % (Auto) Eos % (Auto) Baso % (Auto) Gran # Lymph # (Auto) Carbon # (Auto) Eos # (Auto) Baso # (Auto) PT INR APTT Sodium Potassium Chloride Carbon Dioxide Anion Gap BUN Creatinine Est GFR ( Amer) Est GFR (Non-Af Amer) POC Glucose (mg/dL) 125 H 127 H 131 H Random Glucose Calcium Phosphorus Magnesium Total Bilirubin AST ALT Alkaline Phosphatase Total Protein Albumin Globulin Albumin/Globulin Ratio Hep Bs Antibody Crossmatch 12/29/17 12/29/17 12/29/17 08:30 08:30 10:15 WBC 10.8 RBC 3.91 Hgb 10.8 L D Hct 32.3 L MCV 82.6 MCH 27.6 MCHC 33.4 RDW 15.8 H Plt Count 32 L* Gran % 89.6 H Lymph % (Auto) 8.5 L Carbon % (Auto) 1.8 Eos % (Auto) 0.1 L Baso % (Auto) 0.0 Gran # 9.67 H Lymph # (Auto) 0.9 L Carbon # (Auto) 0.2 Eos # (Auto) 0.0 Baso # (Auto) 0.00 PT 15.3 H INR 1.32 APTT 35.9 Sodium 146 Potassium 4.2 Chloride 111 H Carbon Dioxide 33 Anion Gap 6 L BUN 16 Creatinine 0.6 L Est GFR ( Amer) > 60 Est GFR (Non-Af Amer) > 60 POC Glucose (mg/dL) Random Glucose 110 Calcium 7.7 L Phosphorus 1.2 L* Magnesium 1.7 Total Bilirubin 1.0 AST 337 H D ALT 485 H Alkaline Phosphatase 527 H Total Protein 4.6 L Albumin 2.1 L Globulin 2.5 Albumin/Globulin Ratio 0.8 L Hep Bs Antibody Crossmatch 12/29/17 11:25 WBC RBC Hgb Hct MCV MCH MCHC RDW Plt Count Gran % Lymph % (Auto) Carbon % (Auto) Eos % (Auto) Baso % (Auto) Gran # Lymph # (Auto) Carbon # (Auto) Eos # (Auto) Baso # (Auto) PT INR APTT Sodium Potassium Chloride Carbon Dioxide Anion Gap BUN Creatinine Est GFR ( Amer) Est GFR (Non-Af Amer) POC Glucose (mg/dL) 120 H Random Glucose Calcium Phosphorus Magnesium Total Bilirubin AST ALT Alkaline Phosphatase Total Protein Albumin Globulin Albumin/Globulin Ratio Hep Bs Antibody Crossmatch Fingerstick Blood Sugar Results: 134 Review of Systems - Review of Systems Systems not reviewed;Unavailable: Altered Mental Status Critical Care Progress Note - Extremities/Vascular Does the Patient have a Central Venous Catheter?: Yes Insertion Site: Internal Jugular Vein - Prophylaxis GI Prophylaxis GI: PPI - Prophylaxis DVT Prophylaxis DVT: SCDs - Nutrition Nutrition: Nutrition Category Date Time Status NPO Diet [DIET] Diets 12/26/17 Dinner Ordered Assessment/Plan - Assessment and Plan (Free Text) Assessment: 42F w/ a PMH of developmental delay presenting w/ AMS, hypotesnion, bradycardia , Acute liver failure. Neuro: -AMS is improving at this time -Most likely 2/2 Shock -CT Head on admission negative, repeat CT head negative -Maintain normothermia, temperatures are improving, currently on bear hugger -seizure, aspiration and high fall risk precautions -EEG pending -on keppra 500 Q12 -Neurology on consult, Dr. Rios Cardio: -Patient is maintaining MAP>65; Hypotensive on admission - possibly due to septic shock given +BCx below -Bradycardia; Currently on dopamine drip @ 5mcg/kg/min; Hear rate improving - Etiology of bradycardia unknow; Hypothermia vs ? -EKG on admission showed afib, currently in sinus rhythm -troponin unremarkable -echo shows EF 53%, RVSP 57 and moderate MR. Otherwise unremarkable -Cardiology Following Lungs: -Hypoxemia: O2 Sat >95% on 4L NC -Maintain O2 Sat >90% -CTA BL -CT chest shows LLB atelectasis/infiltrate and acute left rib 7-9 fracture concerning for trauma/fall -CXR shows no active disease Renal: -Maintain euvolemia -C/w D5 1/2 NS @ 100mls/hr -Hypophosphatemia this AM ML 2/2 refeeding syndrome -Will replete and recheck in PM today -Avoid nephrotoxic agents, hypochloremia -Replace electrolytes as needed -BUN/Cr WNL -Corrected calcium 9.6 -urine drug screen and acetominphen level are negative GI: -LFTs improving; most likely 2/2 shock liver -Will get duplex ultra sound r/o hepatic thrombosis -Albumin level stable however still decreased; most likely 2/2 malnutrition- Prealbumin level pending -Patient is cachectic with BMI of 10, concern for chronic malnutrition -CT abd/chest shows severe edema in mesenteric fat, esophagitis and pelvis ascites. The swelling is consistent with severe malnutrition with low albumin -hepatitis panel is negative -CA-125 wnl -GI prophylaxis with protonix -Can consider reinserting NG tube vs peg for nutrition if patient does not show capacity for PO intake -GI on consult, Dr. Rizo Heme: -H/H Stable; S/p 2U pRBC -Thrombocytopenia - most likely 2/2 shock liver; vs HIT -Holding heparin at this time -Continue monitor for s/s of bleeding -Microcytic Anemia : -TVUS pending Endo: -Euglycemic/ Hyperglycemic now -currently receiving D5 1/2 NS @ 125 ml/hr -c-peptide wnl -Will get A1C level -TSH WNL -Was started on stress response steroid initially; began tapering yesterday; Will decrease Hydrocortisone from 50 to 25/QD ID: -Questionable septic shock due to bactremia vs contaminated samples; source of infection is still unclear -WBC wnl -Blood Cx 1/2 - negative @ 3 days -Blood Cx 1/2 - GNR -Repeat Cx set ordered -Urine Cx negative -DC'd vanc, zosyn yesterday; Received 3 days -Started Merem Q8 - Day 1 -HIV Panel negative -ID on consult, Dr. Miles GI/DVT Ppx: Protonix IVP, SCDs Dispostion: Continued ICU management at this time for workup of shock, bradycardia, possible bacteremia, and hepatic failure. Patient was seen, examined, and discussed w/ attending physician Dr. Quinton Welch DO PGY1 - Internal Medicine Laborer [employer] - Date & Time Date: 12/29/17 Time: 12:49 <Quinton Ruffin - Last Filed: 12/29/17 13:08> CCU Subjective - Physician Review Critical Care Time Spent (in minutes): 0 CCU Objective - Vital Signs / Intake & Output Vital Signs (Last 4 hours): Vital Signs Temp Pulse Resp BP Pulse Ox 12/29/17 12:30 95.9 F L 41 L 15 115/64 100 12/29/17 12:20 95.9 F L 37 L 14 100 12/29/17 12:10 95.7 F L 37 L 14 100 12/29/17 12:00 95.7 F L 41 L 15 109/73 100 12/29/17 11:50 95.9 F L 44 L 19 100 12/29/17 11:40 95.9 F L 12/29/17 11:39 95.9 F L 12/29/17 11:38 95.9 F L 62 93 L 12/29/17 11:30 104/59 L 12/29/17 11:20 95.9 F L 48 L 16 100 12/29/17 11:10 95.9 F L 40 L 21 100 12/29/17 11:00 95.7 F L 38 L 18 108/57 L 100 12/29/17 10:50 95.7 F L 39 L 14 100 12/29/17 10:40 95.7 F L 46 L 17 100 12/29/17 10:30 95.7 F L 53 L 16 105/52 L 100 12/29/17 10:20 95.7 F L 43 L 16 100 12/29/17 10:10 95.7 F L 47 L 16 100 12/29/17 10:00 95.7 F L 48 L 17 99/52 L 100 12/29/17 09:50 95.5 F L 46 L 15 100 12/29/17 09:40 95.5 F L 56 L 18 100 12/29/17 09:30 95.5 F L 55 L 22 107/63 100 12/29/17 09:23 95.5 F L 57 L 100 12/29/17 09:20 95.5 F L 48 L 13 92 L 12/29/17 09:10 95.4 F L 45 L 16 100 12/29/17 09:07 95.4 F L 53 L 98 Intake and Output (Last 8hrs): Intake & Output 12/28/17 12/29/17 12/29/17 22:59 06:59 14:59 Intake Total 1860 3866 Output Total 950 950 Balance 910 2916 Weight 63 lb Intake: IV 1850 3856 Left Antecubital 400 Right External Jugular 1500 Right Forearm 106 Right Internal Jugular 1850 1850 Tube Feeding 10 10 Output: Urine 950 950 Urethral (Jimenez) 950 950 Other: # Bowel Movements 1 1 - Medications Active Medications: Active Medications Generic Name Dose Route Start Last Admin Trade Name Freq PRN Reason Stop Dose Admin Hydrocortisone Sodium Succinate 50 mg 12/29/17 10:00 12/29/17 10:19 Solu-Cortef IVP 50 mg DAILY NASH Administration Norepinephrine Bitartrate 8 mg 508 mls @ 15.24 mls/hr 12/25/17 20:06 23:46 / Sodium Chloride IV 0 mcg/min .Q24H PRN 0 mls/hr TITRATE PER MD ORDER Titration Protocol 4 MCG/MIN Levetiracetam 500 mg in 100 mls @ 460 mls/hr 12/27/17 07:57 12/29/17 10:18 Keppra 500mg Ivpb IV 460 mls/hr Q12 NASH Administration Dopamine HCl/Dextrose 400 mg in 250 mls @ 5.188 mls/hr 12/27/17 08:40 12:24 Dopamine 400mg/250ml D5w IV 8 mcg/kg/min .Q24H PRN 8.301 mls/hr TITRATE PER MD ORDER Titration Protocol 5 MCG/KG/MIN Potassium Chloride 40 meq/ 1,020 mls @ 100 mls/hr 12/27/17 21:15 12/29/17 10: 25 Dextrose/Sodium Chloride IV 100 mls/hr .[id number] NASH Administration Meropenem 50 mls @ 100 mls/hr 12/28/17 19:07 12/29/17 10:23 Merrem Iv 1 Gm Premix IVPB 01/06/18 19:08 100 mls/hr Q8 NASH Administration Protocol Potassium Phosphate 15 mmole/ 255 mls @ 42.5 mls/hr 12/29/17 09:18 12/29/17 10:35 Sodium Chloride IVPB 12/29/17 15:17 42.5 mls/hr ONCE ONE Administration Pantoprazole Sodium 40 mg 12/26/17 10:00 12/29/17 10:19 Protonix Inj IVP 40 mg DAILY NASH Administration - Patient Studies Lab Studies: Lab Studies 12/29/17 12/29/17 12/29/17 Range/Units 11:25 10:15 08:30 WBC (4.5-11.0) 10^3/ul RBC (3.5-6.1) 10^6/uL Hgb (12.0-16.0) g/dL Hct (36.0-48.0) % MCV (80.0-105.0) fl MCH (25.0-35.0) pg MCHC (31.0-37.0) g/dl RDW (11.5-14.5) % Plt Count (120.0-450.0) 10^3/uL Gran % (50.0-68.0) % Lymph % (Auto) (22.0-35.0) % Carbon % (Auto) (1.0-6.0) % Eos % (Auto) (1.5-5.0) % Baso % (Auto) (0.0-3.0) % Gran # (1.4-6.5) Lymph # (Auto) (1.2-3.4) Carbon # (Auto) (0.1-0.6) Eos # (Auto) (0.0-0.7) Baso # (Auto) (0.0-2.0) K/mm3 PT 15.3 H (9.4-12.5) SECONDS INR 1.32 APTT 35.9 (25.1-36.5) Seconds Sodium 146 (132-148) mmol/L Potassium 4.2 (3.6-5.0) mmol/L Chloride 111 H (98-107) mmol/L Carbon Dioxide 33 (21-33) mmol/L Anion Gap 6 L (10-20) BUN 16 (7-21) mg/dL Creatinine 0.6 L (0.7-1.2) mg/dl Est GFR ( Amer) > 60 Est GFR (Non-Af Amer) > 60 POC Glucose (mg/dL) 120 H (65-110) mg/dL Random Glucose 110 (70-110) mg/dL C-Peptide (0.80-3.85) ng/mL Calcium 7.7 L (8.4-10.5) mg/dL Phosphorus 1.2 L* (2.5-4.5) mg/dL Magnesium 1.7 (1.7-2.2) mg/dL Total Bilirubin 1.0 (0.2-1.3) mg/dL AST 337 H D (14-36) U/L ALT 485 H (7-56) U/L Alkaline Phosphatase 527 H (38-126) U/L Total Protein 4.6 L (5.8-8.3) g/dL Albumin 2.1 L (3.0-4.8) g/dL Globulin 2.5 gm/dL Albumin/Globulin Ratio 0.8 L (1.1-1.8) Hep Bs Antibody (NEGATIVE) Crossmatch 12/29/17 12/29/17 12/29/17 Range/Units 08:30 07:32 04:11 WBC 10.8 (4.5-11.0) 10^3/ul RBC 3.91 (3.5-6.1) 10^6/uL Hgb 10.8 L D (12.0-16.0) g/dL Hct 32.3 L (36.0-48.0) % MCV 82.6 (80.0-105.0) fl MCH 27.6 (25.0-35.0) pg MCHC 33.4 (31.0-37.0) g/dl RDW 15.8 H (11.5-14.5) % Plt Count 32 L* (120.0-450.0) 10^3/uL Gran % 89.6 H (50.0-68.0) % Lymph % (Auto) 8.5 L (22.0-35.0) % Carbon % (Auto) 1.8 (1.0-6.0) % Eos % (Auto) 0.1 L (1.5-5.0) % Baso % (Auto) 0.0 (0.0-3.0) % Gran # 9.67 H (1.4-6.5) Lymph # (Auto) 0.9 L (1.2-3.4) Carbon # (Auto) 0.2 (0.1-0.6) Eos # (Auto) 0.0 (0.0-0.7) Baso # (Auto) 0.00 (0.0-2.0) K/mm3 PT (9.4-12.5) SECONDS INR APTT (25.1-36.5) Seconds Sodium (132-148) mmol/L Potassium (3.6-5.0) mmol/L Chloride (98-107) mmol/L Carbon Dioxide (21-33) mmol/L Anion Gap (10-20) BUN (7-21) mg/dL Creatinine (0.7-1.2) mg/dl Est GFR ( Amer) Est GFR (Non-Af Amer) POC Glucose (mg/dL) 131 H 127 H (65-110) mg/dL Random Glucose (70-110) mg/dL C-Peptide (0.80-3.85) ng/mL Calcium (8.4-10.5) mg/dL Phosphorus (2.5-4.5) mg/dL Magnesium (1.7-2.2) mg/dL Total Bilirubin (0.2-1.3) mg/dL AST (14-36) U/L ALT (7-56) U/L Alkaline Phosphatase (38-126) U/L Total Protein (5.8-8.3) g/dL Albumin (3.0-4.8) g/dL Globulin gm/dL Albumin/Globulin Ratio (1.1-1.8) Hep Bs Antibody (NEGATIVE) Crossmatch 12/28/17 12/28/17 12/28/17 Range/Units 23:42 19:40 16:02 WBC (4.5-11.0) 10^3/ul RBC (3.5-6.1) 10^6/uL Hgb (12.0-16.0) g/dL Hct (36.0-48.0) % MCV (80.0-105.0) fl MCH (25.0-35.0) pg MCHC (31.0-37.0) g/dl RDW (11.5-14.5) % Plt Count (120.0-450.0) 10^3/uL Gran % (50.0-68.0) % Lymph % (Auto) (22.0-35.0) % Carbon % (Auto) (1.0-6.0) % Eos % (Auto) (1.5-5.0) % Baso % (Auto) (0.0-3.0) % Gran # (1.4-6.5) Lymph # (Auto) (1.2-3.4) Carbon # (Auto) (0.1-0.6) Eos # (Auto) (0.0-0.7) Baso # (Auto) (0.0-2.0) K/mm3 PT (9.4-12.5) SECONDS INR APTT (25.1-36.5) Seconds Sodium (132-148) mmol/L Potassium (3.6-5.0) mmol/L Chloride (98-107) mmol/L Carbon Dioxide (21-33) mmol/L Anion Gap (10-20) BUN (7-21) mg/dL Creatinine (0.7-1.2) mg/dl Est GFR ( Amer) Est GFR (Non-Af Amer) POC Glucose (mg/dL) 125 H 141 H 134 H (65-110) mg/dL Random Glucose (70-110) mg/dL C-Peptide (0.80-3.85) ng/mL Calcium (8.4-10.5) mg/dL Phosphorus (2.5-4.5) mg/dL Magnesium (1.7-2.2) mg/dL Total Bilirubin (0.2-1.3) mg/dL AST (14-36) U/L ALT (7-56) U/L Alkaline Phosphatase (38-126) U/L Total Protein (5.8-8.3) g/dL Albumin (3.0-4.8) g/dL Globulin gm/dL Albumin/Globulin Ratio (1.1-1.8) Hep Bs Antibody (NEGATIVE) Crossmatch 12/28/17 12/28/17 12/27/17 Range/Units 15:18 12:15 00:15 WBC (4.5-11.0) 10^3/ul RBC (3.5-6.1) 10^6/uL Hgb (12.0-16.0) g/dL Hct (36.0-48.0) % MCV (80.0-105.0) fl MCH (25.0-35.0) pg MCHC (31.0-37.0) g/dl RDW (11.5-14.5) % Plt Count (120.0-450.0) 10^3/uL Gran % (50.0-68.0) % Lymph % (Auto) (22.0-35.0) % Carbon % (Auto) (1.0-6.0) % Eos % (Auto) (1.5-5.0) % Baso % (Auto) (0.0-3.0) % Gran # (1.4-6.5) Lymph # (Auto) (1.2-3.4) Carbon # (Auto) (0.1-0.6) Eos # (Auto) (0.0-0.7) Baso # (Auto) (0.0-2.0) K/mm3 PT (9.4-12.5) SECONDS INR APTT (25.1-36.5) Seconds Sodium 148 (132-148) mmol/L Potassium 4.1 (3.6-5.0) mmol/L Chloride 112 H (98-107) mmol/L Carbon Dioxide 31 (21-33) mmol/L Anion Gap 9 L (10-20) BUN 16 (7-21) mg/dL Creatinine 0.7 (0.7-1.2) mg/dl Est GFR ( Amer) > 60 Est GFR (Non-Af Amer) > 60 POC Glucose (mg/dL) 127 H (65-110) mg/dL Random Glucose 133 H (70-110) mg/dL C-Peptide 0.20 L (0.80-3.85) ng/mL Calcium 7.7 L (8.4-10.5) mg/dL Phosphorus (2.5-4.5) mg/dL Magnesium 1.7 (1.7-2.2) mg/dL Total Bilirubin 1.7 H (0.2-1.3) mg/dL AST 555 H D (14-36) U/L ALT 558 H (7-56) U/L Alkaline Phosphatase 611 H (38-126) U/L Total Protein 4.8 L (5.8-8.3) g/dL Albumin 2.2 L (3.0-4.8) g/dL Globulin 2.6 gm/dL Albumin/Globulin Ratio 0.8 L (1.1-1.8) Hep Bs Antibody (NEGATIVE) Crossmatch 12/26/17 12/26/17 Range/Units 11:00 03:00 WBC (4.5-11.0) 10^3/ul RBC (3.5-6.1) 10^6/uL Hgb (12.0-16.0) g/dL Hct (36.0-48.0) % MCV (80.0-105.0) fl MCH (25.0-35.0) pg MCHC (31.0-37.0) g/dl RDW (11.5-14.5) % Plt Count (120.0-450.0) 10^3/uL Gran % (50.0-68.0) % Lymph % (Auto) (22.0-35.0) % Carbon % (Auto) (1.0-6.0) % Eos % (Auto) (1.5-5.0) % Baso % (Auto) (0.0-3.0) % Gran # (1.4-6.5) Lymph # (Auto) (1.2-3.4) Carbon # (Auto) (0.1-0.6) Eos # (Auto) (0.0-0.7) Baso # (Auto) (0.0-2.0) K/mm3 PT (9.4-12.5) SECONDS INR APTT (25.1-36.5) Seconds Sodium (132-148) mmol/L Potassium (3.6-5.0) mmol/L Chloride (98-107) mmol/L Carbon Dioxide (21-33) mmol/L Anion Gap (10-20) BUN (7-21) mg/dL Creatinine (0.7-1.2) mg/dl Est GFR ( Amer) Est GFR (Non-Af Amer) POC Glucose (mg/dL) (65-110) mg/dL Random Glucose (70-110) mg/dL C-Peptide (0.80-3.85) ng/mL Calcium (8.4-10.5) mg/dL Phosphorus (2.5-4.5) mg/dL Magnesium (1.7-2.2) mg/dL Total Bilirubin (0.2-1.3) mg/dL AST (14-36) U/L ALT (7-56) U/L Alkaline Phosphatase (38-126) U/L Total Protein (5.8-8.3) g/dL Albumin (3.0-4.8) g/dL Globulin gm/dL Albumin/Globulin Ratio (1.1-1.8) Hep Bs Antibody Negative (NEGATIVE) Crossmatch See Detail Laboratory Results - last 24 hr 12/26/17 12/26/17 12/27/17 03:00 11:00 00:15 WBC RBC Hgb Hct MCV MCH MCHC RDW Plt Count Gran % Lymph % (Auto) Carbon % (Auto) Eos % (Auto) Baso % (Auto) Gran # Lymph # (Auto) Carbon # (Auto) Eos # (Auto) Baso # (Auto) PT INR APTT Sodium Potassium Chloride Carbon Dioxide Anion Gap BUN Creatinine Est GFR ( Amer) Est GFR (Non-Af Amer) POC Glucose (mg/dL) Random Glucose C-Peptide 0.20 L Calcium Phosphorus Magnesium Total Bilirubin AST ALT Alkaline Phosphatase Total Protein Albumin Globulin Albumin/Globulin Ratio Hep Bs Antibody Negative Crossmatch See Detail 12/28/17 12/28/17 12/28/17 12:15 15:18 16:02 WBC RBC Hgb Hct MCV MCH MCHC RDW Plt Count Gran % Lymph % (Auto) Carbon % (Auto) Eos % (Auto) Baso % (Auto) Gran # Lymph # (Auto) Carbon # (Auto) Eos # (Auto) Baso # (Auto) PT INR APTT Sodium 148 Potassium 4.1 Chloride 112 H Carbon Dioxide 31 Anion Gap 9 L BUN 16 Creatinine 0.7 Est GFR ( Amer) > 60 Est GFR (Non-Af Amer) > 60 POC Glucose (mg/dL) 127 H 134 H Random Glucose 133 H C-Peptide Calcium 7.7 L Phosphorus Magnesium 1.7 Total Bilirubin 1.7 H AST 555 H D ALT 558 H Alkaline Phosphatase 611 H Total Protein 4.8 L Albumin 2.2 L Globulin 2.6 Albumin/Globulin Ratio 0.8 L Hep Bs Antibody Crossmatch 12/28/17 12/28/17 12/29/17 19:40 23:42 04:11 WBC RBC Hgb Hct MCV MCH MCHC RDW Plt Count Gran % Lymph % (Auto) Carbon % (Auto) Eos % (Auto) Baso % (Auto) Gran # Lymph # (Auto) Carbon # (Auto) Eos # (Auto) Baso # (Auto) PT INR APTT Sodium Potassium Chloride Carbon Dioxide Anion Gap BUN Creatinine Est GFR ( Amer) Est GFR (Non-Af Amer) POC Glucose (mg/dL) 141 H 125 H 127 H Random Glucose C-Peptide Calcium Phosphorus Magnesium Total Bilirubin AST ALT Alkaline Phosphatase Total Protein Albumin Globulin Albumin/Globulin Ratio Hep Bs Antibody Crossmatch 12/29/17 12/29/17 12/29/17 07:32 08:30 08:30 WBC 10.8 RBC 3.91 Hgb 10.8 L D Hct 32.3 L MCV 82.6 MCH 27.6 MCHC 33.4 RDW 15.8 H Plt Count 32 L* Gran % 89.6 H Lymph % (Auto) 8.5 L Carbon % (Auto) 1.8 Eos % (Auto) 0.1 L Baso % (Auto) 0.0 Gran # 9.67 H Lymph # (Auto) 0.9 L Carbon # (Auto) 0.2 Eos # (Auto) 0.0 Baso # (Auto) 0.00 PT INR APTT Sodium 146 Potassium 4.2 Chloride 111 H Carbon Dioxide 33 Anion Gap 6 L BUN 16 Creatinine 0.6 L Est GFR ( Amer) > 60 Est GFR (Non-Af Amer) > 60 POC Glucose (mg/dL) 131 H Random Glucose 110 C-Peptide Calcium 7.7 L Phosphorus 1.2 L* Magnesium 1.7 Total Bilirubin 1.0 AST 337 H D ALT 485 H Alkaline Phosphatase 527 H Total Protein 4.6 L Albumin 2.1 L Globulin 2.5 Albumin/Globulin Ratio 0.8 L Hep Bs Antibody Crossmatch 12/29/17 12/29/17 10:15 11:25 WBC RBC Hgb Hct MCV MCH MCHC RDW Plt Count Gran % Lymph % (Auto) Carbon % (Auto) Eos % (Auto) Baso % (Auto) Gran # Lymph # (Auto) Carbon # (Auto) Eos # (Auto) Baso # (Auto) PT 15.3 H INR 1.32 APTT 35.9 Sodium Potassium Chloride Carbon Dioxide Anion Gap BUN Creatinine Est GFR ( Amer) Est GFR (Non-Af Amer) POC Glucose (mg/dL) 120 H Random Glucose C-Peptide Calcium Phosphorus Magnesium Total Bilirubin AST ALT Alkaline Phosphatase Total Protein Albumin Globulin Albumin/Globulin Ratio Hep Bs Antibody Crossmatch Critical Care Progress Note - Nutrition Nutrition: Nutrition Category Date Time Status NPO Diet [DIET] Diets 12/26/17 Dinner Ordered Addendum Addendum: 12/29/17 13:06 ICU Attending Addendum: Patient seen and examined. Case reviewed on round with housestaff. Agree with resident note above with the following additions/exceptions: ICU Attending Addendum: 42 with mental retardation admitted with a seizure like episode, hypothermia and hypoglycemia, bradycardia likely secondary to shock. To this point the etiology of her shock has been unclear however with recent anerobic bottle growing GNR this is likely septic shock. I suspect her septic shock caused her to be hypothermic and also caused shock liver. Given her profound malnutrition, her glycogen stores were already depleted putting her in a hypoglycemic state. She is still requiring D5 as she did not tolerated NGT. Her BP has been stable however she remains bradycardic and dependant on dopamine. Unclear as to why. Cardio is on boards. Will cont steroids for now. The source of GNR may be clearer once the bug is identified. Urine did not look dirty. This could be a hepatobiliary source such as acalculous cholecytisis. We will have GI take another look at her and will also order doppler to r/o portal vein thrombosis. Encouraged by LFTs coming down. Her HB is holding, likely anemic as baseline from Iron Def; Will begin iron IV; HB goal > 7 Plat are low, may be hepatic cause or med induced, cont to monitor, goal > 20 Nutrition will be martins for her but I am ok waiting for GI workup to be complete as to not make a potential haptobil problem worse with feeding. 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 Will discuss with family. Her overall pre-hospital care is in questoin with her low BMI, alb 1.7 all suggesting malnutrition. May need to involve ethics committee as well. Social work is on board. Neurologically improving, will await EEG. MRI was not able to be done due to movement. If EEG is negative, we can hold off on MRI. Consult nutrition for diet recs. Will replace and closely monitor phose as she is at risk for refeeding syndrome risk Rest of care as noted above. Quinton Ruffin MD [employer] Critical care time : 39 mins
[2017-12-29 12:20] LABS: C-PEPTIDE 0.2 ng/mL (0.80-3.85)
--- NOTE | 2017-12-29 13:14 | PN ---
Copied To: Giancarlo Rizo MD Attending MD: Giancarlo Rizo MD DATE: 12/29/2017 SUBJECTIVE: The patient remains in ICU. She is more awake and alert. She is beginning to verbalize. PHYSICAL EXAMINATION: VITAL SIGNS: Reveal temperature of 95.4, blood pressure 135/80, heart rate of 48. HEENT: Reveal sclerae to be white. Conjunctivae pale. NECK: Supple. CHEST: Reveal decreased breath sounds at the bases. HEART: Reveals a regular rate and rhythm. ABDOMEN: Distended with ascites. EXTREMITIES: Show no edema. LABORATORY DATA: Reveal hemoglobin 10.8, white blood cell count 10.8, platelet count 32,000, BUN 16, creatinine 0.6. AST is down to 337, ALT is down to 485, alkaline phosphatase is down to 527, total bilirubin is 1. IMPRESSION: A 42-year-old female with mental retardation with elevated liver enzymes, history of seizures, history of transient unresponsiveness with large amount of ascites and mesenteric edema on CT imaging of her Abdomen. Her serum albumin was less than 2. I suspect the ascites is partly due to protein-calorie malnutrition. Her oral intake at home was apparently poor. RECOMMENDATIONS: 1. Would obtain Palliative Care evaluation. 2. Continue comfort measures. Giancarlo Rizo MD
--- NOTE | 2017-12-29 14:41 | CP.PCM.PN ---
<Juancarlos Nguyen - Last Filed: 12/29/17 18:47> Subjective - Date & Time of Evaluation Date of Evaluation: 12/29/17 Time of Evaluation: 07:30 - Subjective Subjective: Hospitalist Service Progress Note Juancarlos Nguyen, PGY-3 IM Seen and examined at bedside in ICU. Overnight, patient pulled out NGT, but no other acute events reported. Arousable to loud verbal and light physical stimuli (i.e tapping the shoulder). Not at baseline mental state; mutters a few non-sensical words, not following commands, but tracking through room with eyes. Given patient current status, would likely require PEG or G-tube, but patient obviously not capable to consent herself to procedure. In discussion with Case Management/Parts Counter Salesperson, unclear if patient's mother is POA, trying to determine, but number for mother is either not in service or is incorrect, and has not yet shown up to bedside today. Will have to wait for any possible procedure pending determination of POA to obtain consent. Objective - Vital Signs/Intake and Output Vital Signs (last 24 hours): Temp Pulse Resp BP Pulse Ox 95.9 F L 41 L 15 115/64 100 12/29/17 12:30 12/29/17 12:30 12/29/17 12:30 12/29/17 12:30 12/29/17 12:30 Intake and Output: 12/29/17 12/29/17 06:59 18:59 Intake Total 3866 Output Total 950 Balance 2916 - Medications Medications: Current Medications Hydrocortisone Sodium Succinate (Solu-Cortef) 50 mg IVP DAILY [facility] Last Admin: 12/29/17 10:19 Dose: 50 mg Norepinephrine Bitartrate 8 mg (/ Sodium Chloride) 508 mls @ 15.24 mls/hr IV .Q24H PRN; Protocol; 4 MCG/MIN PRN Reason: TITRATE PER MD ORDER Last Titration: 12/26/17 23:46 Dose: 0 mcg/min, 0 mls/hr Levetiracetam (Keppra 500mg Ivpb) 500 mg in 100 mls @ 460 mls/hr IV Q12 [facility] Last Admin: 12/29/17 10:18 Dose: 460 mls/hr Dopamine HCl/Dextrose (Dopamine 400mg/250ml D5w) 400 mg in 250 mls @ 5.188 mls/ hr IV .Q24H PRN; Protocol; 5 MCG/KG/MIN PRN Reason: TITRATE PER MD ORDER Last Titration: 12/28/17 12:24 Dose: 8 mcg/kg/min, 8.301 mls/hr Potassium Chloride 40 meq/ (Dextrose/Sodium Chloride) 1,020 mls @ 100 mls/hr IV .[id number] [facility] Last Admin: 12/29/17 10:25 Dose: 100 mls/hr Meropenem (Merrem Iv 1 Gm Premix) 50 mls @ 100 mls/hr IVPB Q8 [facility] PRN Reason: Protocol Stop: 01/06/18 19:08 Last Admin: 12/29/17 13:58 Dose: 100 mls/hr Potassium Phosphate 15 mmole/ (Sodium Chloride) 255 mls @ 42.5 mls/hr IVPB ONCE ONE Stop: 12/29/17 15:17 Last Admin: 12/29/17 10:35 Dose: 42.5 mls/hr Pantoprazole Sodium (Protonix Inj) 40 mg IVP DAILY [facility] Last Admin: 12/29/17 10:19 Dose: 40 mg - Labs Labs: 12/29/17 08:30 12/29/17 08:30 PT 15.3 SECONDS (9.4-12.5) H 12/29/17 10:15 INR 1.32 12/29/17 10:15 APTT 35.9 Seconds (25.1-36.5) 12/29/17 10:15 - Constitutional Appears: Non-toxic, No Acute Distress - Head Exam Head Exam: ATRAUMATIC, NORMOCEPHALIC - Eye Exam Eye Exam: EOMI, Normal appearance. absent: Conjunctival injection, Scleral icterus Pupil Exam: absent: Fixed, Irregular - ENT Exam ENT Exam: Mucous Membranes Dry Additional comments: NGT no longer present poor dentition - Neck Exam Neck Exam: absent: Lymphadenopathy, Thyromegaly - Respiratory Exam Respiratory Exam: Clear to Ausculation Bilateral, NORMAL BREATHING PATTERN. absent: Accessory Muscle Use, Chest Wall Tenderness, Decreased Breath Sounds, Rales, Rhonchi, Wheezes - Cardiovascular Exam Cardiovascular Exam: Bradycardia, REGULAR RHYTHM, +S1, +S2. absent: Tachycardia , Irregular Rhythm, JVD - GI/Abdominal Exam GI & Abdominal Exam: Soft, Normal Bowel Sounds. absent: Distended, Firm, Rigid , Tenderness, Diminished Bowel Sounds, Hyperactive Bowel Sounds, Hypoactive Bowel Sounds - Extremities Exam Extremities Exam: absent: Pedal Edema Additional comments: atrophic bilateral LE, unable to palpate distal LE pulses - Neurological Exam Additional comments: somnolent but arousable, awake and alert but confused, garbled speech, not following commands, minimal spontaneous movements - Psychiatric Exam Additional comments: unable to assess, mostly non-verbal - Skin Skin Exam: Dry, Intact, Normal Color, Warm Assessment and Plan - Assessment and Plan (Free Text) Assessment: 42F with PMH of developmental delay reported to have absence seizure and BL LE weakness prior to admission; was found to have altered mental status, significant hypotension, bradycardia, hypothermia, liver failure, and paroxysmal atrial fibrillation; admitted to ICU for further workup and management. Plan: 1) AMS Ddx: Post-Ictal State vs. Septic Encephalopathy vs. Hepatic Encephalopathy vs. ACS vs. Intoxication, difficult to quantify changes due to overlying MR -Head CTs not indicative of acute process -CT Chest, Abdomen and Pelvis showed edema of mesenteric fat and ascites. left- sided rib fractures with atelectasis or pneumonia in the LLL -Chest X-Ray showed no acute findings on 12/28 -EEG pending -Prolactin elevated at 29.2, Ammonia mildly elevated at 37 -Four serial troponins negative -UA without signs of UTI -UDS and Acetaminophen levels negative -HIV negative -Blood Cx 1/2 Positive @ 48H - GNR, remaining culture remains negative, repeat blood cx negative x2 at 24 hrs -UCx negative; MRSA screen negative -Continue emperic IV Vancomycin 1gm Q12 and IVPB Zosyn 3.375 Q6 -continue Keppra 500mg BID -Neurology, ID, Cardiology, and GI consulted, all recommendations appreciated -Pulled NGT, not eating today, need to consider PEG/G-tube but need to determine POA to obtain consent; Palliative also consulted 2) Acute Liver Failure - Improving Ddx: Shock Liver vs. Inflammatory vs. Infectious vs. Drug-Induced -CT Chest, Abdomen and Pelvis showed findings as above -Abdominal US showed atrophied liver. diffuse increased echogenicity in liver may reflect hepatic steatosis however parenchymal infectious/inflammatory etiologies cannot be excluded. bilateral renal atrophy. -LFTs continue to improve -Hepatitis and HIV workup negative -Acetaminophen levels negative -GI Consulted, all recommendations appreciated 3) Hypotension - Improved -Off all pressors, maintaining BP 110's/60's 4) Bradycardia -EKG and monitor tech showing sinus bradycardia in the 40-50 beats/min range -Persisting, remains on dopamine drip -Continue to monitor with telemetry monitoring in ICU -Cardiology following, all recommendations appreciated 5) Fractured Left Ribs 7-9 -CT Chest, Abdomen, and Pelvis findings as above -Ribs X-Ray - fractures in the left 7th and 8th ribs 6) Microcytic Normochromic Anemia -H/H 10.8/32.3 -no need for transfusion at this time Dispo: Remains in ICU, pending determination of POA, pending Palliative Consult FEN: Pureed diet Access: Peripheral IV, R IJ TLC Consults: ICU, Neuro, Cardio, GI, ID Ppx: Protonix for GI, Heparin for DVT Code Status: Full Patient seen, reviewed, and examined with attending, Dr. Berrios <Brandon Berrios - Last Filed: 12/30/17 08:02> Objective - Vital Signs/Intake and Output Vital Signs (last 24 hours): Temp Pulse Resp BP Pulse Ox 95.4 F L 58 L 21 111/60 100 12/29/17 18:30 12/29/17 22:00 12/29/17 18:30 12/29/17 18:30 12/29/17 18:30 Intake and Output: 12/30/17 12/30/17 06:59 18:59 Intake Total 1320 Output Total 400 Balance 920 - Medications Medications: Current Medications Hydrocortisone Sodium Succinate (Solu-Cortef) 25 mg IVP DAILY [facility] Norepinephrine Bitartrate 8 mg (/ Sodium Chloride) 508 mls @ 15.24 mls/hr IV .Q24H PRN; Protocol; 4 MCG/MIN PRN Reason: TITRATE PER MD ORDER Last Titration: 12/26/17 23:46 Dose: 0 mcg/min, 0 mls/hr Levetiracetam (Keppra 500mg Ivpb) 500 mg in 100 mls @ 460 mls/hr IV Q12 [facility] Last Admin: 12/29/17 22:16 Dose: 460 mls/hr Dopamine HCl/Dextrose (Dopamine 400mg/250ml D5w) 400 mg in 250 mls @ 5.188 mls/ hr IV .Q24H PRN; Protocol; 5 MCG/KG/MIN PRN Reason: TITRATE PER MD ORDER Last Titration: 12/29/17 16:46 Dose: 0 mcg/kg/min, 0 mls/hr Potassium Chloride 40 meq/ (Dextrose/Sodium Chloride) 1,020 mls @ 100 mls/hr IV .[id number] [facility] Last Admin: 12/30/17 00:45 Dose: 100 mls/hr Meropenem (Merrem Iv 1 Gm Premix) 50 mls @ 100 mls/hr IVPB Q8 [facility] PRN Reason: Protocol Stop: 01/06/18 19:08 Last Admin: 12/30/17 06:31 Dose: 100 mls/hr Pantoprazole Sodium (Protonix Inj) 40 mg IVP DAILY [facility] Last Admin: 12/29/17 10:19 Dose: 40 mg - Labs Labs: 12/29/17 08:30 12/29/17 08:30 PT 14.4 SECONDS (9.4-12.5) H 12/30/17 06:00 INR 1.25 12/30/17 06:00 APTT 39.4 Seconds (25.1-36.5) H 12/30/17 06:00 Attending/Attestation - Attestation I have personally seen and examined this patient.: Yes I have fully participated in the care of the patient.: Yes I have reviewed all pertinent clinical information, including history, physical exam and plan: Yes Notes (Text): 12/29/17 42 year old female with past medical history of developmental delay who presented with seizure at home. She was found to have hypothermia, hypotension, bradycardia and transaminitis. CT head was negative for acute findings except mild anterior scalp and periorbital edema. MRI was done yesterday but limited study. EEG read is pending. Patient is on keppra. CT chest/abdomen/pelvis showed anasarca, ascites, left sided rib fractures and LLL atelecatasis or pneumonia. Rib fracture and periorbital edema findings were discussed with the mother at bedside; she denied any recent fall, trauma or abuse. GI is following. Transaminitis possibly secondary to shock liver is slowly improving. Hepatitis panel was negative. Transvaginal ultrasound is pending and CA 125 was within normal limits. Patient is on iv antibiotics. One bottle was positive for gram negative rods. Repeat culture is negative. Case was discussed with ID and repeat ultrasound was ordered. GI follow up was appreciated. Cardiology is also following for bradycardia and patient is on dopamine drip with mild improvement of heart rate. Anemia improved after prbc transfusion. Continue to monitor thrombocytopenia closely. Will replete and repeat lytes (phosphorous). Hypernatremia has improved. Continue to monitor mental status closely which has improved. Palliative care and case management social worker evaluation were requested. Brandon Berrios MD Hospitalist.
[2017-12-29] MEDS: DOPamine 400mg/250ml D5W 400 MG/250 ML BAG IV PRN (16:44)
--- NOTE | 2017-12-29 17:12 | US ---
PROCEDURE: Portal vein duplex ultrasound. CLINICAL HISTORY: Cirrhosis. Deteriorating liver function. Evaluate for portal vein thrombosis. PHYSICIAN(S): Sloan Armendariz M.D. FINDINGS: The hepatic parenchyma is nodular heterogeneous and echogenic, consistent with cirrhosis. No obvious mass is appreciated on these limited images. The extrahepatic portal vein is patent with hepatopetal flow. The hepatic artery is patent. There is a small to moderate amount of ascites in the upper abdomen. The spleen was not imaged. IMPRESSION: 1. Patent portal vein with hepatopetal flow.
--- NOTE | 2017-12-29 17:17 | PN ---
Copied To: Bk Newton MD Attending MD: Bk Newton MD DATE: 12/29/2017 SUBJECTIVE: The patient is lethargic. She has very poor oral intake. She is on dopamine for sinus bradycardia. PHYSICAL EXAMINATION: VITAL SIGNS: Blood pressure 135/80, heart rate 55, temperature 96.3, respiration 21. HEENT: Significant temporal wasting. CHEST: Clear. HEART: S1 and S2 regular. EXTREMITIES: Significant muscle wasting. LABORATORY DATA: SMA-7: Sodium 146, potassium 4.2, chloride 111, CO2 of 33, glucose 110, BUN 16, creatinine 0.6. Phosphorus is below normal, 1.2. AST and ALT are 337 and 485 respectively. Alkaline phosphatase 527. INR is 1.32. PTT is 35.9. Hemoglobin and hematocrit 10.8 and 32.7, platelet count is 32,000. Brain MRI, impression, examination was terminated due to significant patient motion and lack of diagnostic quality. Chest x-ray revealed mild cardiomegaly with left lung haziness. Official report, interval development of left perihilar airspace disease, which may represent pulmonary edema or pneumonia. Echocardiogram revealed normal left ventricular size wall thickness and ejection fraction, moderate mitral insufficiency and [id number] pulmonary hypertension. ASSESSMENT: 1. Mild sinus bradycardia. 2. Gram-negative bacteremia. 3. Left lung infiltrate, consider underlying pneumonia. 4. Malnutrition and hypoalbuminemia. RECOMMENDATIONS: Continue current IV meropenem and low-dose dopamine. Continue Solu-Cortef at 50 mg intravenously daily, Protonix 40 mg intravenously daily. I did discuss with the medical team possibility of gastrostomy feeding tube placement. No transvenous pacemaker is indicated at this time or even justified in the presence of Gram-negative bacteremia and the fact that the lowest heart rate is in the 30s and not below that. Bk Newton MD
--- NOTE | 2017-12-29 22:26 | PN ---
Copied To: Abdiaziz Sousa MD Attending MD: Abdiaziz Sousa MD DATE: 12/29/2017 SUBJECTIVE: The patient is in bed, in no acute distress, nontoxic. The patient is still hypothyroid. The patient is seen earlier. However, chronically ill, debilitated. VITAL SIGNS: Temperature of 97, blood pressure is 111/60, respiratory rate of 21, heart rate is 43 and BMI is 11. HEENT: Examination of HEENT is temporal wasting. NECK: Supple. LUNGS: Have decreased breath sounds. HEART: Normal S1, S2. ABDOMEN: Soft, nontender. LABORATORY DATA: Laboratory examination reveals the white count is 10,000, hemoglobin of 10, platelets of 32. Chemistries reveals a BUN of 16, creatinine of 0.6, phosphorus is 1.2. LFTs are elevated and the alk phos is 527. The patient's procalcitonin is 0.99. Urinalysis is noted to be negative and the serology is negative. Microbiology reveals a gram-negative nichole in the blood. Repeat blood cultures are negative. Urine cultures are negative. The patient had abdominal ultrasound as per my discussion with Dr. Berrios yesterday about the GI source of the gram-negative sepsis and patent portal vein with hepatopetal flow consistent with cirrhosis. Chest x-ray is noted. Dr. Giancarlo Rizo's progress note is reviewed from today. He recommends supportive therapy, palliative care. Dr. Ruffin's progress note is reviewed. ASSESSMENT AND PLAN: A 42-year-old female who was seen earlier today, who is end stage, cachectic, chronically ill, unresponsive, mentally disabled, developmentally delayed, found to have seizures with sepsis with gram-negative nichole bacteremia. Gastrointestinal source is most likely the case. May consider repeat CAT scan of the abdomen and pelvis to evaluate a biliary source. Currently, on meropenem, waiting for identification and sensitivity of the gram-negative nichole. The patient did have a CAT scan of the abdomen on 12/25/2017. I discussed this case in detail with Dr. Berrios yesterday, recommended reevaluation by GI and surgical evaluation and repeat CAT scan of the abdomen and pelvis. On the initial CAT scan, the gallbladder and bile ducts are unremarkable. I am concerned about biliary source of the gram-negative nichole bacteremia. We will follow with you. Overall prognosis is quite poor for this end-stage patient. Abdiaziz Sousa MD [facility] # [id number]
[2017-12-30] MEDS: Potassium Chloride 40 MEQ in Dextrose 5%/0.45% NS 1,000 ML IV SCH ×2 (00:45→21:16)
[2017-12-30] MEDS: Meropenem IV 1 gm in NS 50 ML IVPB SCH (06:31)
--- NOTE | 2017-12-30 06:48 | CARD ---
APPROVED REPORT Date of service: 12/26/2017 EKG Measurement Heart [id number] <Conclusion> Sinus bradycardia T wave abnormality, consider anterior ischemia Abnormal ECG
[2017-12-30 07:13] LABS: INR 1.25; PARTIAL THROMBOPLASTIN TIME 39.4 Seconds (25.1-36.5); PROTHROMBIN TIME 14.4 SECONDS (9.4-12.5)
[2017-12-30 08:06] LABS: GRAN # 9.14 (1.4-6.5); GRAN % 90.1 % (50.0-68.0); HEMOGLOBIN 10.7 g/dL (12.0-16.0); LYMPH # 0.8 (1.2-3.4); LYMPH % 7.8 % (22.0-35.0); MEAN CELL VOLUME 82.3 fl (80.0-105.0); MEAN CORPUSCULAR HEMOGLOBIN 27.8 pg (25.0-35.0); MEAN CORPUSCULAR HGB CONC 33.8 g/dl (31.0-37.0); MONO # 0.2 (0.1-0.6); MONO % 2.1 % (1.0-6.0); RBC 3.85 10^6/uL (3.5-6.1); RED CELL DISTRIBUTION WIDTH 15.8 % (11.5-14.5); WHITE BLOOD COUNT 10.1 10^3/ul (4.5-11.0)
[2017-12-30 08:16] LABS: ALB/GLOB RATIO 0.8 (1.1-1.8); ALT/SGPT 707 U/L (7-56); AST/SGOT 718 U/L (14-36); BLOOD UREA NITROGEN 14 mg/dL (7-21); CALCIUM 7.4 mg/dL (8.4-10.5); GFR NON-AFRICAN AMERICAN > 60
[2017-12-30 08:17] LABS: PLATELET COUNT 35 10^3/uL (120.0-450.0)
[2017-12-30 08:28] LABS: LYMPHOCYTE 11 % (22.0-35.0); MONOCYTE 2 % (1.0-6.0); NEUTROPHIL 87 % (50.0-70.0); PLATELET ESTIMATE LOW (NORMAL)
[2017-12-30] MEDS ORDERED: Potassium Phosphate 15 MMOLE in Sodium Chloride 0.9% 250 ML IVPB ONE (08:31)
[2017-12-30] MEDS ORDERED: Magnesium Sulfate 1 gm in D5W 1 GM/100 ML BAG IVPB ONE (08:31)
--- NOTE | 2017-12-30 08:50 | CP.PCM.PN ---
Subjective - Date & Time of Evaluation Date of Evaluation: 12/30/17 Time of Evaluation: 08:50 - Subjective Subjective: PGY3 ID Progress note for Dr. Sousa Objective - Vital Signs/Intake and Output Vital Signs (last 24 hours): Temp Pulse Resp BP Pulse Ox 91.9 F L 59 L 21 117/56 L 89 L 12/30/17 05:48 12/30/17 08:01 12/30/17 08:00 12/30/17 08:01 12/30/17 08:01 Intake and Output: 12/30/17 12/30/17 06:59 18:59 Intake Total 1320 Output Total 400 Balance 920 - Medications Medications: Current Medications Hydrocortisone Sodium Succinate (Solu-Cortef) 25 mg IVP DAILY [facility] Norepinephrine Bitartrate 8 mg (/ Sodium Chloride) 508 mls @ 15.24 mls/hr IV .Q24H PRN; Protocol; 4 MCG/MIN PRN Reason: TITRATE PER MD ORDER Last Titration: 12/26/17 23:46 Dose: 0 mcg/min, 0 mls/hr Levetiracetam (Keppra 500mg Ivpb) 500 mg in 100 mls @ 460 mls/hr IV Q12 [facility] Last Admin: 12/29/17 22:16 Dose: 460 mls/hr Dopamine HCl/Dextrose (Dopamine 400mg/250ml D5w) 400 mg in 250 mls @ 5.188 mls/ hr IV .Q24H PRN; Protocol; 5 MCG/KG/MIN PRN Reason: TITRATE PER MD ORDER Last Titration: 12/29/17 16:46 Dose: 0 mcg/kg/min, 0 mls/hr Potassium Chloride 40 meq/ (Dextrose/Sodium Chloride) 1,020 mls @ 100 mls/hr IV .[id number] [facility] Last Admin: 12/30/17 00:45 Dose: 100 mls/hr Meropenem (Merrem Iv 1 Gm Premix) 50 mls @ 100 mls/hr IVPB Q8 [facility] PRN Reason: Protocol Stop: 01/06/18 19:08 Last Admin: 12/30/17 06:31 Dose: 100 mls/hr Magnesium Sulfate/Dextrose (Magnesium Sulfate 1 Gm/100 Ml D5w) 1 gm in 100 mls @ 100 mls/hr IVPB ONCE ONE Stop: 12/30/17 09:30 Potassium Phosphate 15 mmole/ (Sodium Chloride) 255 mls @ 42.5 mls/hr IVPB ONCE ONE Stop: 12/30/17 14:30 Pantoprazole Sodium (Protonix Inj) 40 mg IVP DAILY [facility] Last Admin: 12/29/17 10:19 Dose: 40 mg - Labs Labs: 12/30/17 08:00 12/30/17 08:00 PT 14.4 SECONDS (9.4-12.5) H 12/30/17 06:00 INR 1.25 12/30/17 06:00 APTT 39.4 Seconds (25.1-36.5) H 12/30/17 06:00
[2017-12-30] MEDS: levETIRAcetam 500mg IVPB 500 MG/100 ML BAG IV SCH ×2 (09:06→21:15)
[2017-12-30] MEDS ORDERED: Iohexol 350 MG/100 ML VIAL ONE (09:19)
[2017-12-30] MEDS: DOPamine 400mg/250ml D5W 400 MG/250 ML BAG IV PRN (10:38)
--- NOTE | 2017-12-30 10:47 | PN ---
Copied To: Abdiaziz Sousa MD Attending MD: Abdiaziz Sousa MD DATE: 12/30/2017 SUBJECTIVE: The patient was seen in 129, bed 6 earlier this morning. The patient does have hypothermia and clinically weak and overall poor condition. PHYSICAL EXAMINATION: VITAL SIGNS: Temperature is 91, blood pressure is 117/50, respiratory rate 21, heart rate of 58. HEENT: Temporal wasting. NECK: Supple. LUNGS: Have decreased breath sounds. HEART: Normal S1 and S2. ABDOMEN: Soft. DATA: Laboratory examination reveals a white count of 10,000, hemoglobin of 10 and platelets of 35,000. BUN of 15, creatinine of 0.5. LFTs are noted to be elevated with a high alkaline phosphatase. Urinalysis is noted. The patient's creatinine is at 0.5. Microbiology reveals a gram-negative ncihole in the blood. The urine cultures are negative. Review of order reveals the patient is on dopamine, Keppra, meropenem. CAT scan of the abdomen and pelvis is ordered by Dr. Gresham . Dr. Kelli Washington's progress note is reviewed. ASSESSMENT AND PLAN: This is a 42-year-old female with a body mass index of 11, with end-stage cachectic, chronically ill, unresponsive, mentally disabled, developmentally delayed with seizures, now with sepsis with gram-negative nichole bacteremia with a negative urine cultures, considered GI, specifically biliary source, on meropenem, waiting for identification of sensitivity of gram-negative nichole. A repeat CAT scan of the abdomen and pelvis should have a GI and surgical evaluation and I have discussed the case with ICU team regarding the source of the gram-negative nichole most likely GI source, biliary source is a concern. We will follow closely with you. Abdiaziz Sousa MD
--- NOTE | 2017-12-30 11:01 | CP.PCM.CON ---
History of Present Illness - History of Present Illness History of Present Illness: Palliative consult requested by Dr Kenrick Berrios Reason: Goals of care. 42 year old female with history of mental retardation who presented to ED on with hypoglycemic episode. The patient was accompanied by her mother who reported the patient as having a seizure which prompted her to call EMS. The mother denied illness,fever, chills, dysuria, hematuria, bowel incontinence or other symptoms. CT of head showed mild anterior scalp and periorbital edema, no acute intracranial finding. CT of Abdomen;study limited due to lack of intra abdominal fat,edema of the mesenteric fat and ascites, left rib fractures with atelactasis and or pneumonia of LLL. X ray confirms fracture of left 7th and 8th ribs. US of liver showed diffuse increased echogenicity which may reflect hepatic steatosis /parenchymal infection or other inflammatory etiology, bilateral renal atrophy. Labs; Wbc 9.1, Hgb 9.0, Plt 137,Na 148, K 4.1, Bun 16, Creat 0.7, Eliot 7.7, T Bili 1.7, ASt 555,Alt 558, ALK 611, aLB 2.2. Blood culture + gram negative rods > serology panels negative for Hep, HIV. Echo; mild mitral regurgitation, otherwise normal. Social History: Non smoker, no alcohol or drug use. Lives with her mother. Family History: Unknown. Advance Care Planning: The patient does not have an advanced Directive. She is full code. Review of Systems: As per HPI, not obtained, patient is unable to communicate. Past Patient History - Past Social History Smoking Status: Never Smoked - CARDIAC Hx Cardiac Disorders: No - PULMONARY Hx Respiratory Disorders: No - NEUROLOGICAL Hx Neurological Disorder: Yes Other/Comment: developmental delay - HEENT Hx HEENT Problems: No - RENAL Hx Chronic Kidney Disease: No - ENDOCRINE/METABOLIC Hx Endocrine Disorders: No - HEMATOLOGICAL/ONCOLOGICAL Hx Blood Disorders: No - INTEGUMENTARY Hx Dermatological Problems: No - MUSCULOSKELETAL/RHEUMATOLOGICAL Hx Musculoskeletal Disorders: No - GASTROINTESTINAL Hx Gastrointestinal Disorders: No - GENITOURINARY/GYNECOLOGICAL Hx Genitourinary Disorders: No - PSYCHIATRIC Hx Psychophysiologic Disorder: Yes Hx Substance Use: No Other/Comment: Developmental delay - SURGICAL HISTORY Hx Surgeries: No Meds Allergies/Adverse Reactions: Allergies Allergy/AdvReac Type Severity Reaction Status Date / Time No Known Allergies Allergy Verified 12/25/17 21:52 - Medications Medications: Current Medications Hydrocortisone Sodium Succinate (Solu-Cortef) 25 mg IVP DAILY [facility] Last Admin: 12/30/17 09:06 Dose: 25 mg Norepinephrine Bitartrate 8 mg (/ Sodium Chloride) 508 mls @ 15.24 mls/hr IV .Q24H PRN; Protocol; 4 MCG/MIN PRN Reason: TITRATE PER MD ORDER Last Titration: 12/26/17 23:46 Dose: 0 mcg/min, 0 mls/hr Levetiracetam (Keppra 500mg Ivpb) 500 mg in 100 mls @ 460 mls/hr IV Q12 [facility] Last Admin: 12/30/17 09:06 Dose: 460 mls/hr Dopamine HCl/Dextrose (Dopamine 400mg/250ml D5w) 400 mg in 250 mls @ 5.188 mls/ hr IV .Q24H PRN; Protocol; 5 MCG/KG/MIN PRN Reason: TITRATE PER MD ORDER Last Titration: 12/29/17 16:46 Dose: 0 mcg/kg/min, 0 mls/hr Potassium Chloride 40 meq/ (Dextrose/Sodium Chloride) 1,020 mls @ 100 mls/hr IV .[id number] [facility] Last Admin: 12/30/17 00:45 Dose: 100 mls/hr Meropenem (Merrem Iv 1 Gm Premix) 50 mls @ 100 mls/hr IVPB Q8 [facility] PRN Reason: Protocol Stop: 01/06/18 19:08 Last Admin: 12/30/17 06:31 Dose: 100 mls/hr Potassium Phosphate 15 mmole/ (Sodium Chloride) 255 mls @ 42.5 mls/hr IVPB ONCE ONE Stop: 12/30/17 14:30 Last Admin: 12/30/17 10:15 Dose: 42.5 mls/hr Pantoprazole Sodium (Protonix Inj) 40 mg IVP DAILY [facility] Last Admin: 12/30/17 09:06 Dose: 40 mg Physical Exam - Constitutional Appears: Cachectic, Chronically Ill - Head Exam Head Exam: NORMOCEPHALIC - Eye Exam Eye Exam: Normal appearance, PERRL - ENT Exam ENT Exam: Mucous Membranes Moist - Respiratory Exam Respiratory Exam: Decreased Breath Sounds, NORMAL BREATHING PATTERN - Cardiovascular Exam Cardiovascular Exam: REGULAR RHYTHM, +S1, +S2 - GI/Abdominal Exam GI & Abdominal Exam: Distended, Hypoactive Bowel Sounds, Soft - Extremities Exam Additional comments: contractures - Neurological Exam Neurological exam: Altered - Skin Skin Exam: Dry, Pallor Additional comments: Stage 2 pressure ulcer R buttock, left heel ulcer Results - Vital Signs Recent Vital Signs: Last Vital Signs Temp 97.7 F 12/30/17 08:00 Pulse 59 L 12/30/17 08:01 Resp 21 12/30/17 08:00 BP 117/56 L 12/30/17 08:01 Pulse Ox 89 L 12/30/17 08:01 - Labs Result Diagrams: 12/30/17 08:00 12/30/17 08:00 Labs: Laboratory Results - last 24 hr 12/26/17 12/27/17 12/29/17 03:00 00:15 11:25 WBC RBC Hgb Hct MCV MCH MCHC RDW Plt Count Gran % Lymph % (Auto) [place] % (Auto) Eos % (Auto) Baso % (Auto) Gran # Lymph # (Auto) [place] # (Auto) Eos # (Auto) Baso # (Auto) Neutrophils % (Manual) Lymphocytes % (Manual) Monocytes % (Manual) Platelet Evaluation PT INR APTT Sodium Potassium Chloride Carbon Dioxide Anion Gap BUN Creatinine Est GFR ( Amer) Est GFR (Non-Af Amer) POC Glucose (mg/dL) 120 H Random Glucose C-Peptide 0.20 L Calcium Phosphorus Magnesium Total Bilirubin AST ALT Alkaline Phosphatase Total Protein Albumin Globulin Albumin/Globulin Ratio Crossmatch See Detail 12/29/17 12/29/17 12/29/17 16:36 19:00 20:47 WBC RBC Hgb Hct MCV MCH MCHC RDW Plt Count Gran % Lymph % (Auto) [place] % (Auto) Eos % (Auto) Baso % (Auto) Gran # Lymph # (Auto) [place] # (Auto) Eos # (Auto) Baso # (Auto) Neutrophils % (Manual) Lymphocytes % (Manual) Monocytes % (Manual) Platelet Evaluation PT INR APTT Sodium Potassium Chloride Carbon Dioxide Anion Gap BUN Creatinine Est GFR ( Amer) Est GFR (Non-Af Amer) POC Glucose (mg/dL) 82 115 H Random Glucose C-Peptide Calcium Phosphorus 2.6 Magnesium Total Bilirubin AST ALT Alkaline Phosphatase Total Protein Albumin Globulin Albumin/Globulin Ratio Crossmatch 12/30/17 12/30/1712/30/18 00:07 03:53 06:00 WBC RBC Hgb Hct MCV MCH MCHC RDW Plt Count Gran % Lymph % (Auto) [place] % (Auto) Eos % (Auto) Baso % (Auto) Gran # Lymph # (Auto) [place] # (Auto) Eos # (Auto) Baso # (Auto) Neutrophils % (Manual) Lymphocytes % (Manual) Monocytes % (Manual) Platelet Evaluation PT 14.4 H INR 1.25 APTT 39.4 H Sodium Potassium Chloride Carbon Dioxide Anion Gap BUN Creatinine Est GFR ( Amer) Est GFR (Non-Af Amer) POC Glucose (mg/dL) 99 105 Random Glucose C-Peptide Calcium Phosphorus Magnesium Total Bilirubin AST ALT Alkaline Phosphatase Total Protein Albumin Globulin Albumin/Globulin Ratio Crossmatch 12/30/17 12/30/17 12/30/17 07:47 08:00 08:00 WBC 10.1 RBC 3.85 Hgb 10.7 L Hct 31.7 L MCV 82.3 MCH 27.8 MCHC 33.8 RDW 15.8 H Plt Count 35 L* Gran % 90.1 H Lymph % (Auto) 7.8 L [place] % (Auto) 2.1 Eos % (Auto) 0.0 L Baso % (Auto) 0.0 Gran # 9.14 H Lymph # (Auto) 0.8 L [place] # (Auto) 0.2 Eos # (Auto) 0.0 Baso # (Auto) 0.00 Neutrophils % (Manual) 87 H Lymphocytes % (Manual) 11 L Monocytes % (Manual) 2 Platelet Evaluation Low PT INR APTT Sodium 145 Potassium 4.4 Chloride 112 H Carbon Dioxide 29 Anion Gap 8 L BUN 14 Creatinine 0.5 L Est GFR ( Amer) > 60 Est GFR (Non-Af Amer) > 60 POC Glucose (mg/dL) 82 Random Glucose 88 C-Peptide Calcium 7.4 L Phosphorus 2.0 L Magnesium 1.6 L Total Bilirubin 0.9 AST 718 H D ALT 707 H Alkaline Phosphatase 731 H D Total Protein 4.6 L Albumin 2.0 L Globulin 2.6 Albumin/Globulin Ratio 0.8 L Crossmatch Assessment & Plan - Assessment and Plan (Free Text) Assessment: 42 year old female with history of mental retardation who was admitted with hypoglycemia, seizures, anorexia, cachexia, malnutrition, sepsis, left 7th/ 8th rib fractures, ascites, elevated LFT's The patient is alert, unable to communicate. Bed bound, contracted. Skin break down on right gluteus, heels. She was evaluated by speech therapy with findings of moderate oropharyngeal dyspahgia and risk for aspiration. Recommendation for trial of puree diet with thin liquids. Patient also found to have lower loose tooth which speech therapist felt may be causing her discomfort. I was asked to evaluate this patient for palliative services. Due to severe anorexia/ cachexia, malnutrition, failure to thrive, liver failure,ascites, palliative performance rating 30%, she is certainly appropriate for palliative care. Attempts by Social Workers/medical team to reach patients mother have been unsuccessful. Intent would be to have discussion with parent regarding goals of care. Plan: Goals of care Seizure disorder: Continue Keppra Sepsis: ID following, On Merrem. Anorexia/ Cachexia/Malnutrition: Mild oropharangeal dyspagaia, trial of puree diet/thin liquids, aspiration precautions. GI consult reviewed and appreciated Transaminitis:shock liver resolving, monitor labs Bradycardia: Echo essentially nornmal,on doputamine, cardiology following
--- NOTE | 2017-12-30 11:15 | PN ---
Copied To: Silver Cazares MD Attending MD: Silver Cazares MD DATE: 12/30/2017 SUBJECTIVE: The patient is seen and examined at bedside. She is comfortable. She is at her baseline in terms of her mental status (the patient has developmental delay and mental retardation at baseline). The patient is malnourished; however, that is what she had at baseline even prior to admission. The patient is comfortable. PHYSICAL EXAMINATION: VITAL SIGNS: Heart rate 59, blood pressure 117/56, respiratory rate 21, oxygen saturation 89 on room air; however, ABG is pending as waveform on pulse ox monitor appears to be suboptimal. ENT: Head and neck atraumatic. LUNGS: A few crackles, left lower lobe. HEART: Regular rate and rhythm. S1 and S2 normal. ABDOMEN: Soft, nontender and nondistended. MUSCULOSKELETAL: Malnutrition is evident. SKIN: Moist. PSYCH: The patient is at baseline of her mental status. LABORATORY DATA: WBC 10.1; hemoglobin 10.7; platelet count 35, up from 32. Sodium 145, potassium 4.4, chloride 112, carbon dioxide 29, BUN 14, creatinine 0.5, glucose 88, total bilirubin 0.9, AST 718, ALT 707, alkaline phosphatase 731, ammonia level slightly elevated at 37, total protein 4.6, albumin 2, TSH is within normal limits 2.98. Beta HCG is negative. Urinalysis is negative for leukocyte esterase and nitrites. Abdominal ultrasound from 12/25/2017 and 12/28/2017 did not reveal any signs of either ascending cholangitis, CBD dilatation or signs of acute cholecystitis. CAT scan of the abdomen and pelvis from 12/25/2017 also did not reveal any potential hepatobiliary source of gram-negative rods. However, chest CT showed some ground-glass opacification/consolidation/some tree-in-bud nodule/opacities in the left lower lobes. Left lower lobe which highly suspicious for chronic aspiration. The patient did pass swallow eval here in the hospital reportedly; however, I still have high index of suspicion for chronic aspiration. Because the patient's underlying condition, potential for gram-negative colonization of the oral cavity and subsequent development of "healthcare-associated" pneumonia with subsequent seeding of her gram-negative rods into blood is a possible event and would potentially explain gram-negative bacteremia. ASSESSMENT AND PLAN: This is a 42-year-old lady who is recovering from septic shock due to gram-negative bacteremia. There is no clear-cut hepatobiliary source and urinalysis did not reveal any signs that otherwise would suggest urinary tract infection. Her chest imaging may potentially suggest pneumonia as the source of gram-negative bacteremia (as explained above). The patient is on meropenem. Speciation of gram-negative rods is still pending. The patient is off of vasopressor support. The other concern is the patient's nutrition status. I am concerned that she will not be able to get her caloric need with oral nutrition even with assistance. She pulled her NGT yesterday and has ascites, which may complicate decision to put peg tube. As her last blood culture came back negative, we will put peripherally inserted central catheter line in and start parenteral nutrition. She appears clinically improved and weaned off vasopressor support. Her TSH was within normal limits. She is still on small dose of hydrocortisone, which would likely prevent her from full-blown adrenal insufficiency. Echocardiogram also did not show significant signs of left or right ventricular failure. We will continue to target euvolemia, euglycemia, normothermia and oxygen saturation more than 90%. We will continue with deep venous thrombosis, gastrointestinal prophylaxes. Addendum: Spoke with Dr. Sousa-->will stop hydrocortisone as patient is only on minimal dopamine drip (had to be restarted as HR started trending down to 30s territory--, will try to wean later). Concern for GI origin of GNR bacteremia still present (from ID point of view)-->CTAP was repeated: progression of bibasilar consolidation and severe ascites in the setting of signs of liver cirrhosis. GB is only minimally distended. SBP vs pneumonia with parapneumonic effusion is still on Diff diagnosis list. Will consider paracenthesis once platelets>50. Meanwhile continue abx. ccm time 40 min Silver Cazares MD [facility]
--- NOTE | 2017-12-30 11:24 | CP.CCUPN ---
<YuriTenzin - Last Filed: 12/30/17 11:30> CCU Subjective - Physician Review Subjective (Free Text): Tenzin Welch DO PGY1 - Internal Medicine Physical Therapist Center Manager - ICU Progress Note Seen and examined this morning at bedside in ICU. Very responsive today; Spontaneously opening eyes and looking around However still not able to provide complete ROS due to baseline MS. 12/30/17 11:21 Critical Care Time Spent (in minutes): 60 CCU Objective - Vital Signs / Intake & Output Vital Signs (Last 4 hours): Vital Signs Temp Pulse Resp BP Pulse Ox 12/30/17 10:38 47 L 121/71 12/30/17 08:01 59 L 117/56 L 89 L 12/30/17 08:00 97.7 F 53 L 21 75 L 12/30/17 07:30 58 L 38 H 108/69 85 L Intake and Output (Last 8hrs): Intake & Output 12/29/17 12/30/17 12/30/17 22:59 06:59 14:59 Intake Total 1700 1320 250 Output Total 1000 400 Balance 700 920 250 Intake: IV 1500 1200 250 Right Internal Jugular 1500 1200 Oral 200 120 Output: Urine 900 400 Urethral (Jimenez) 900 400 Stool 100 Other: # Bowel Movements 2 - Physical Exam Head: Positive for: Atraumatic, Normocephalic Pupils: Positive for: PERRL Extroacular Muscles: Positive for: EOMI Conjunctiva: Positive for: Normal Mouth: Positive for: Moist Mucous Membranes Neck: Positive for: Normal Range of Motion Respiratory/Chest: Positive for: Clear to Auscultation, Good Air Exchange, Tachypneic, Other (contracted to left side ). Negative for: Respiratory Distress, Accessory Muscle Use, Wheezes, Decreased Breath Sounds, Rales, Retracting, Rhonchi, Tender to Palpation Cardiovascular: Positive for: Regular Rate and Rhythm, Normal S1, S2. Negative for: Murmurs Abdomen: Positive for: Other (Abdomen is scaphoid;). Negative for: Tenderness, Distention, Normal Bowel Sounds, Peritoneal Signs, Rebound, Guarding, McBurney' s Point Tender, Rovsing's Sign Present, Hernias, Feeding Tubes, Ostomy Tubes, Mass/Organomegaly, Scars Back: Positive for: Normal Inspection Upper Extremity: Positive for: Normal Inspection. Negative for: Cyanosis, Edema Lower Extremity: Positive for: Normal Inspection, NORMAL PULSES ( pulses strong and equal, bilateral and present). Negative for: Edema Neurological: Positive for: GCS=15, CN II-XII Intact, Speech Normal Skin: Positive for: Warm, Dry, Normal Color. Negative for: Rashes Psychiatric: Positive for: Alert, Lethargic - Medications Active Medications: Active Medications Generic Name Dose Route Start Last Admin Trade Name Freq PRN Reason Stop Dose Admin Hydrocortisone Sodium Succinate 25 mg 12/29/17 23:54 12/30/17 09:06 Solu-Cortef IVP 25 mg DAILY NASH Administration Norepinephrine Bitartrate 8 mg 508 mls @ 15.24 mls/hr 12/25/17 20:06 23:46 / Sodium Chloride IV 0 mcg/min .Q24H PRN 0 mls/hr TITRATE PER MD ORDER Titration Protocol 4 MCG/MIN Levetiracetam 500 mg in 100 mls @ 460 mls/hr 12/27/17 07:57 12/30/17 09:06 Keppra 500mg Ivpb IV 460 mls/hr Q12 NASH Administration Dopamine HCl/Dextrose 400 mg in 250 mls @ 5.188 mls/hr 12/27/17 08:40 10:38 Dopamine 400mg/250ml D5w IV 5 mcg/kg/min .Q24H PRN 5.188 mls/hr TITRATE PER MD ORDER Administration Protocol 5 MCG/KG/MIN Potassium Chloride 40 meq/ 1,020 mls @ 100 mls/hr 12/27/17 21:15 12/30/17 00: 45 Dextrose/Sodium Chloride IV 100 mls/hr .[id number] NASH Administration Meropenem 50 mls @ 100 mls/hr 12/28/17 19:07 12/30/17 06:31 Merrem Iv 1 Gm Premix IVPB 01/06/18 19:08 100 mls/hr Q8 NASH Administration Protocol Potassium Phosphate 15 mmole/ 255 mls @ 42.5 mls/hr 12/30/17 08:31 12/30/17 10:15 Sodium Chloride IVPB 12/30/17 14:30 42.5 mls/hr ONCE ONE Administration Pantoprazole Sodium 40 mg 12/26/17 10:00 12/30/17 09:06 Protonix Inj IVP 40 mg DAILY NASH Administration - Patient Studies Lab Studies: Microbiology Studies 12/28/17 17:00 Blood Culture - Preliminary Blood NO GROWTH AFTER 24 HOURS 12/28/17 16:30 Blood Culture - Preliminary Blood NO GROWTH AFTER 24 HOURS Lab Studies 12/30/17 12/30/17 12/30/17 Range/Units 08:00 08:00 07:47 WBC 10.1 (4.5-11.0) 10^3/ul RBC 3.85 (3.5-6.1) 10^6/uL Hgb 10.7 L (12.0-16.0) g/dL Hct 31.7 L (36.0-48.0) % MCV 82.3 (80.0-105.0) fl MCH 27.8 (25.0-35.0) pg MCHC 33.8 (31.0-37.0) g/dl RDW 15.8 H (11.5-14.5) % Plt Count 35 L* (120.0-450.0) 10^3/uL Gran % 90.1 H (50.0-68.0) % Lymph % (Auto) 7.8 L (22.0-35.0) % Sterling % (Auto) 2.1 (1.0-6.0) % Eos % (Auto) 0.0 L (1.5-5.0) % Baso % (Auto) 0.0 (0.0-3.0) % Gran # 9.14 H (1.4-6.5) Lymph # (Auto) 0.8 L (1.2-3.4) Sterling # (Auto) 0.2 (0.1-0.6) Eos # (Auto) 0.0 (0.0-0.7) Baso # (Auto) 0.00 (0.0-2.0) K/mm3 Neutrophils % (Manual) 87 H (50.0-70.0) % Lymphocytes % (Manual) 11 L (22.0-35.0) % Monocytes % (Manual) 2 (1.0-6.0) % Platelet Evaluation Low (NORMAL) PT (9.4-12.5) SECONDS INR APTT (25.1-36.5) Seconds Sodium 145 (132-148) mmol/L Potassium 4.4 (3.6-5.0) mmol/L Chloride 112 H (98-107) mmol/L Carbon Dioxide 29 (21-33) mmol/L Anion Gap 8 L (10-20) BUN 14 (7-21) mg/dL Creatinine 0.5 L (0.7-1.2) mg/dl Est GFR ( Amer) > 60 Est GFR (Non-Af Amer) > 60 POC Glucose (mg/dL) 82 (65-110) mg/dL Random Glucose 88 (70-110) mg/dL C-Peptide (0.80-3.85) ng/mL Calcium 7.4 L (8.4-10.5) mg/dL Phosphorus 2.0 L (2.5-4.5) mg/dL Magnesium 1.6 L (1.7-2.2) mg/dL Total Bilirubin 0.9 (0.2-1.3) mg/dL AST 718 H D (14-36) U/L ALT 707 H (7-56) U/L Alkaline Phosphatase 731 H D (38-126) U/L Total Protein 4.6 L (5.8-8.3) g/dL Albumin 2.0 L (3.0-4.8) g/dL Globulin 2.6 gm/dL Albumin/Globulin Ratio 0.8 L (1.1-1.8) Crossmatch 12/30/17 12/30/17 12/30/17 Range/Units 06:00 03:53 00:07 WBC (4.5-11.0) 10^3/ul RBC (3.5-6.1) 10^6/uL Hgb (12.0-16.0) g/dL Hct (36.0-48.0) % MCV (80.0-105.0) fl MCH (25.0-35.0) pg MCHC (31.0-37.0) g/dl RDW (11.5-14.5) % Plt Count (120.0-450.0) 10^3/uL Gran % (50.0-68.0) % Lymph % (Auto) (22.0-35.0) % Sterling % (Auto) (1.0-6.0) % Eos % (Auto) (1.5-5.0) % Baso % (Auto) (0.0-3.0) % Gran # (1.4-6.5) Lymph # (Auto) (1.2-3.4) Sterling # (Auto) (0.1-0.6) Eos # (Auto) (0.0-0.7) Baso # (Auto) (0.0-2.0) K/mm3 Neutrophils % (Manual) (50.0-70.0) % Lymphocytes % (Manual) (22.0-35.0) % Monocytes % (Manual) (1.0-6.0) % Platelet Evaluation (NORMAL) PT 14.4 H (9.4-12.5) SECONDS INR 1.25 APTT 39.4 H (25.1-36.5) Seconds Sodium (132-148) mmol/L Potassium (3.6-5.0) mmol/L Chloride (98-107) mmol/L Carbon Dioxide (21-33) mmol/L Anion Gap (10-20) BUN (7-21) mg/dL Creatinine (0.7-1.2) mg/dl Est GFR ( Amer) Est GFR (Non-Af Amer) POC Glucose (mg/dL) 105 99 (65-110) mg/dL Random Glucose (70-110) mg/dL C-Peptide (0.80-3.85) ng/mL Calcium (8.4-10.5) mg/dL Phosphorus (2.5-4.5) mg/dL Magnesium (1.7-2.2) mg/dL Total Bilirubin (0.2-1.3) mg/dL AST (14-36) U/L ALT (7-56) U/L Alkaline Phosphatase (38-126) U/L Total Protein (5.8-8.3) g/dL Albumin (3.0-4.8) g/dL Globulin gm/dL Albumin/Globulin Ratio (1.1-1.8) Crossmatch 12/29/17 12/29/17 12/29/17 Range/Units 20:47 19:00 16:36 WBC (4.5-11.0) 10^3/ul RBC (3.5-6.1) 10^6/uL Hgb (12.0-16.0) g/dL Hct (36.0-48.0) % MCV (80.0-105.0) fl MCH (25.0-35.0) pg MCHC (31.0-37.0) g/dl RDW (11.5-14.5) % Plt Count (120.0-450.0) 10^3/uL Gran % (50.0-68.0) % Lymph % (Auto) (22.0-35.0) % Sterling % (Auto) (1.0-6.0) % Eos % (Auto) (1.5-5.0) % Baso % (Auto) (0.0-3.0) % Gran # (1.4-6.5) Lymph # (Auto) (1.2-3.4) Sterling # (Auto) (0.1-0.6) Eos # (Auto) (0.0-0.7) Baso # (Auto) (0.0-2.0) K/mm3 Neutrophils % (Manual) (50.0-70.0) % Lymphocytes % (Manual) (22.0-35.0) % Monocytes % (Manual) (1.0-6.0) % Platelet Evaluation (NORMAL) PT (9.4-12.5) SECONDS INR APTT (25.1-36.5) Seconds Sodium (132-148) mmol/L Potassium (3.6-5.0) mmol/L Chloride (98-107) mmol/L Carbon Dioxide (21-33) mmol/L Anion Gap (10-20) BUN (7-21) mg/dL Creatinine (0.7-1.2) mg/dl Est GFR ( Amer) Est GFR (Non-Af Amer) POC Glucose (mg/dL) 115 H 82 (65-110) mg/dL Random Glucose (70-110) mg/dL C-Peptide (0.80-3.85) ng/mL Calcium (8.4-10.5) mg/dL Phosphorus 2.6 (2.5-4.5) mg/dL Magnesium (1.7-2.2) mg/dL Total Bilirubin (0.2-1.3) mg/dL AST (14-36) U/L ALT (7-56) U/L Alkaline Phosphatase (38-126) U/L Total Protein (5.8-8.3) g/dL Albumin (3.0-4.8) g/dL Globulin gm/dL Albumin/Globulin Ratio (1.1-1.8) Crossmatch 12/29/17 12/27/17 12/26/17 Range/Units 11:25 00:15 03:00 WBC (4.5-11.0) 10^3/ul RBC (3.5-6.1) 10^6/uL Hgb (12.0-16.0) g/dL Hct (36.0-48.0) % MCV (80.0-105.0) fl MCH (25.0-35.0) pg MCHC (31.0-37.0) g/dl RDW (11.5-14.5) % Plt Count (120.0-450.0) 10^3/uL Gran % (50.0-68.0) % Lymph % (Auto) (22.0-35.0) % Sterling % (Auto) (1.0-6.0) % Eos % (Auto) (1.5-5.0) % Baso % (Auto) (0.0-3.0) % Gran # (1.4-6.5) Lymph # (Auto) (1.2-3.4) Sterling # (Auto) (0.1-0.6) Eos # (Auto) (0.0-0.7) Baso # (Auto) (0.0-2.0) K/mm3 Neutrophils % (Manual) (50.0-70.0) % Lymphocytes % (Manual) (22.0-35.0) % Monocytes % (Manual) (1.0-6.0) % Platelet Evaluation (NORMAL) PT (9.4-12.5) SECONDS INR APTT (25.1-36.5) Seconds Sodium (132-148) mmol/L Potassium (3.6-5.0) mmol/L Chloride (98-107) mmol/L Carbon Dioxide (21-33) mmol/L Anion Gap (10-20) BUN (7-21) mg/dL Creatinine (0.7-1.2) mg/dl Est GFR ( Amer) Est GFR (Non-Af Amer) POC Glucose (mg/dL) 120 H (65-110) mg/dL Random Glucose (70-110) mg/dL C-Peptide 0.20 L (0.80-3.85) ng/mL Calcium (8.4-10.5) mg/dL Phosphorus (2.5-4.5) mg/dL Magnesium (1.7-2.2) mg/dL Total Bilirubin (0.2-1.3) mg/dL AST (14-36) U/L ALT (7-56) U/L Alkaline Phosphatase (38-126) U/L Total Protein (5.8-8.3) g/dL Albumin (3.0-4.8) g/dL Globulin gm/dL Albumin/Globulin Ratio (1.1-1.8) Crossmatch See Detail Laboratory Results - last 24 hr 12/26/17 12/27/17 12/29/17 03:00 00:15 11:25 WBC RBC Hgb Hct MCV MCH MCHC RDW Plt Count Gran % Lymph % (Auto) Sterling % (Auto) Eos % (Auto) Baso % (Auto) Gran # Lymph # (Auto) Sterling # (Auto) Eos # (Auto) Baso # (Auto) Neutrophils % (Manual) Lymphocytes % (Manual) Monocytes % (Manual) Platelet Evaluation PT INR APTT Sodium Potassium Chloride Carbon Dioxide Anion Gap BUN Creatinine Est GFR ( Amer) Est GFR (Non-Af Amer) POC Glucose (mg/dL) 120 H Random Glucose C-Peptide 0.20 L Calcium Phosphorus Magnesium Total Bilirubin AST ALT Alkaline Phosphatase Total Protein Albumin Globulin Albumin/Globulin Ratio Crossmatch See Detail 12/29/17 12/29/17 12/29/17 16:36 19:00 20:47 WBC RBC Hgb Hct MCV MCH MCHC RDW Plt Count Gran % Lymph % (Auto) Sterling % (Auto) Eos % (Auto) Baso % (Auto) Gran # Lymph # (Auto) Sterling # (Auto) Eos # (Auto) Baso # (Auto) Neutrophils % (Manual) Lymphocytes % (Manual) Monocytes % (Manual) Platelet Evaluation PT INR APTT Sodium Potassium Chloride Carbon Dioxide Anion Gap BUN Creatinine Est GFR ( Amer) Est GFR (Non-Af Amer) POC Glucose (mg/dL) 82 115 H Random Glucose C-Peptide Calcium Phosphorus 2.6 Magnesium Total Bilirubin AST ALT Alkaline Phosphatase Total Protein Albumin Globulin Albumin/Globulin Ratio Crossmatch 12/30/17 12/30/17 12/30/17 00:07 03:53 06:00 WBC RBC Hgb Hct MCV MCH MCHC RDW Plt Count Gran % Lymph % (Auto) Sterling % (Auto) Eos % (Auto) Baso % (Auto) Gran # Lymph # (Auto) Sterling # (Auto) Eos # (Auto) Baso # (Auto) Neutrophils % (Manual) Lymphocytes % (Manual) Monocytes % (Manual) Platelet Evaluation PT 14.4 H INR 1.25 APTT 39.4 H Sodium Potassium Chloride Carbon Dioxide Anion Gap BUN Creatinine Est GFR ( Amer) Est GFR (Non-Af Amer) POC Glucose (mg/dL) 99 105 Random Glucose C-Peptide Calcium Phosphorus Magnesium Total Bilirubin AST ALT Alkaline Phosphatase Total Protein Albumin Globulin Albumin/Globulin Ratio Crossmatch 12/30/17 12/30/17 12/30/17 07:47 08:00 08:00 WBC 10.1 RBC 3.85 Hgb 10.7 L Hct 31.7 L MCV 82.3 MCH 27.8 MCHC 33.8 RDW 15.8 H Plt Count 35 L* Gran % 90.1 H Lymph % (Auto) 7.8 L Sterling % (Auto) 2.1 Eos % (Auto) 0.0 L Baso % (Auto) 0.0 Gran # 9.14 H Lymph # (Auto) 0.8 L Sterling # (Auto) 0.2 Eos # (Auto) 0.0 Baso # (Auto) 0.00 Neutrophils % (Manual) 87 H Lymphocytes % (Manual) 11 L Monocytes % (Manual) 2 Platelet Evaluation Low PT INR APTT Sodium 145 Potassium 4.4 Chloride 112 H Carbon Dioxide 29 Anion Gap 8 L BUN 14 Creatinine 0.5 L Est GFR ( Amer) > 60 Est GFR (Non-Af Amer) > 60 POC Glucose (mg/dL) 82 Random Glucose 88 C-Peptide Calcium 7.4 L Phosphorus 2.0 L Magnesium 1.6 L Total Bilirubin 0.9 AST 718 H D ALT 707 H Alkaline Phosphatase 731 H D Total Protein 4.6 L Albumin 2.0 L Globulin 2.6 Albumin/Globulin Ratio 0.8 L Crossmatch Fingerstick Blood Sugar Results: 82 Review of Systems - Review of Systems Systems not reviewed;Unavailable: Other (baseline MS) Critical Care Progress Note - Nutrition Nutrition: Nutrition Category Date Time Status Pureed [Dysphagia/Modified Consistency Diet] [DIET] Diets 12/29/17 Lunch Ordered Assessment/Plan - Assessment and Plan (Free Text) Assessment: Assessment: 42F w/ a PMH of developmental delay presenting w/ AMS, hypotesnion, bradycardia , Acute liver failure. Neuro: -AMS is improving at this time -Most likely 2/2 Shock or Hepatic Encephalopathy -Will recheck ammonia today -CT Head on admission negative, repeat CT head negative -Maintaining Normothermia without bear hugger now -seizure, aspiration and high fall risk precautions -EEG pending -on keppra 500 Q12 -Neurology on consult, Dr. Rios Cardio: -Patient is maintaining MAP>65; Hypotensive on admission - possibly due to septic shock given +BCx below -Borderline bradycardia; Heart rate improving off of dopamine drip; Etiology of bradycardia unknown; Hypothermia vs Malnutrition/Anorexia -EKG on admission showed afib, currently in sinus rhythm; Less concern for Afib at this time (suspect artifact) -troponin unremarkable -echo shows EF 53%, RVSP 57 and moderate MR. Otherwise unremarkable -Cardiology Following Lungs: -Hypoxemia: O2 Sat >95% on 4L NC -Maintain O2 Sat >90% -CTA BL -CT chest shows LLB atelectasis/infiltrate and acute left rib 7-9 fracture concerning for trauma/fall -CXR shows no active disease -ABG pending Renal: -Maintain euvolemia -C/w D5 1/2 NS @ 100mls/hr -Hypophosphatemia this AM; Still unresolved -Will replete and recheck in PM today -Avoid nephrotoxic agents, hypochloremia -Replace electrolytes as needed -BUN/Cr WNL -Corrected calcium 8.0 -urine drug screen and acetominphen level are negative GI: -LFTs worsened overnight -Smooth muscle Ab ordered -Copper/ Ceruloplasmin ordered -ANCA ordered -Alpha1 Antitrypsin ordered -Mitochondrial Ab ordered -No hepatic thrombosis on duplex -Albumin level stable however still decreased; most likely 2/2 malnutrition- Prealbumin level pending -Patient is cachectic with BMI of 10, concern for chronic malnutrition -CT abd/chest shows severe edema in mesenteric fat, esophagitis and pelvis ascites. The swelling is consistent with severe malnutrition with low albumin -hepatitis panel is negative -CA-125 wnl -GI prophylaxis with protonix -Can consider reinserting NG tube vs peg for nutrition if patient does not show capacity for PO intake -GI on consult, Dr. Rizo Heme: -H/H Stable; S/p 2U pRBC -Thrombocytopenia - most likely 2/2 shock liver; vs HIT -Holding heparin at this time -Continue monitor for s/s of bleeding -Microcytic Anemia : -TVUS pending Endo: -Euglycemic/ Hyperglycemic now -currently receiving D5 1/2 NS @ 125 ml/hr -c-peptide wnl -Will get A1C level -TSH WNL -Was started on stress response steroid initially; began tapering yesterday; Hydrocortisone 25QD today; will DC for tomorrow ID: -Questionable septic shock due to bactremia vs contaminated samples; source of infection is still unclear -WBC wnl -Blood Cx 1/2 - negative @ 3 days -Blood Cx 1/2 - GNR -Repeat Cx 2/2 neagative @ 24H -Urine Cx negative -DC'd vanc, zosyn yesterday; Received 3 days -Started Merem Q8 - Day 2 -HIV Panel negative -ID on consult, Dr. Miles GI/DVT Ppx: Protonix IVP, SCDs Dispostion: Continued ICU management at this time for workup of shock, bradycardia, possible bacteremia, and hepatic failure. Will attempt to place PICC and begin parenteral feeds; in mean time will continue to feed w/ assist. Patient was seen, examined, and discussed w/ attending physician Dr. Sage Welch DO PGY1 - Internal Medicine Physical Therapist Center Manager - Date & Time Date: 12/30/17 Time: 11:30 <Silver Cazares - Last Filed: 12/30/17 16:57> CCU Objective - Vital Signs / Intake & Output Vital Signs (Last 4 hours): Vital Signs Pulse Resp BP Pulse Ox 12/30/17 14:44 109 H 31 H 12/30/17 14:42 119 H 12/30/17 14:40 103 H 12/30/17 14:39 111 H 19 12/30/17 14:38 127 H 17 12/30/17 14:37 114 H 35 H 12/30/17 14:36 114 H 16 12/30/17 14:35 127 H 19 12/30/17 14:33 127 H 14 12/30/17 14:32 121 H 18 12/30/17 14:30 118 H 19 135/107 H 85 L 12/30/17 14:23 126 H 50 H 12/30/17 14:22 102 H 23 12/30/17 14:21 73 21 12/30/17 14:20 74 17 12/30/17 14:19 77 33 H 12/30/17 14:18 116/93 H 12/30/17 14:17 74 12/30/17 14:16 74 19 12/30/17 14:15 79 28 H 12/30/17 14:14 76 20 12/30/17 14:13 77 12/30/17 14:12 70 15 12/30/17 14:11 71 39 H 12/30/17 14:10 74 26 H 12/30/17 14:09 73 16 12/30/17 14:08 74 26 H 12/30/17 14:07 77 28 H 12/30/17 14:06 83 23 12/30/17 14:05 87 16 12/30/17 14:04 106 H 29 H 12/30/17 14:03 115 H 12/30/17 14:02 78 35 H 12/30/17 14:01 83 21 12/30/17 14:00 131/101 H 12/30/17 13:59 105 H 15 12/30/17 13:58 82 19 12/30/17 13:57 83 29 H 12/30/17 13:56 89 17 12/30/17 13:55 89 14 12/30/17 13:54 93 H 22 12/30/17 13:53 116 H 12/30/17 13:52 93 H 12/30/17 13:51 100 H 17 12/30/17 13:48 71 16 12/30/17 13:47 77 18 12/30/17 13:46 75 24 12/30/17 13:45 77 23 12/30/17 13:44 84 20 Intake and Output (Last 8hrs): Intake & Output 12/30/17 12/30/17 12/30/17 06:59 14:59 22:59 Intake Total 1320 250 Output Total 400 Balance 920 250 Intake: IV 1200 250 Right Internal Jugular 1200 Oral 120 Output: Urine 400 Urethral (Jimenez) 400 Other: # Bowel Movements 2 - Medications Active Medications: Active Medications Generic Name Dose Route Start Last Admin Trade Name Freq PRN Reason Stop Dose Admin Norepinephrine Bitartrate 8 mg 508 mls @ 15.24 mls/hr 12/25/17 20:06 23:46 / Sodium Chloride IV 0 mcg/min .Q24H PRN 0 mls/hr TITRATE PER MD ORDER Titration Protocol 4 MCG/MIN Levetiracetam 500 mg in 100 mls @ 460 mls/hr 12/27/17 07:57 12/30/17 09:06 Keppra 500mg Ivpb IV 460 mls/hr Q12 NASH Administration Dopamine HCl/Dextrose 400 mg in 250 mls @ 5.188 mls/hr 12/27/17 08:40 10:38 Dopamine 400mg/250ml D5w IV 5 mcg/kg/min .Q24H PRN 5.188 mls/hr TITRATE PER MD ORDER Administration Protocol 5 MCG/KG/MIN Potassium Chloride 40 meq/ 1,020 mls @ 100 mls/hr 12/27/17 21:15 12/30/17 00: 45 Dextrose/Sodium Chloride IV 100 mls/hr .[id number] NASH Administration Pantoprazole Sodium 40 mg 12/26/17 10:00 12/30/17 09:06 Protonix Inj IVP 40 mg DAILY NASH Administration - Patient Studies Lab Studies: Microbiology Studies 12/28/17 17:00 Blood Culture - Preliminary Blood NO GROWTH AFTER 24 HOURS 12/28/17 16:30 Blood Culture - Preliminary Blood NO GROWTH AFTER 24 HOURS Lab Studies 12/30/17 12/30/17 12/30/17 Range/Units 16:43 16:15 11:26 WBC (4.5-11.0) 10^3/ul RBC (3.5-6.1) 10^6/uL Hgb (12.0-16.0) g/dL Hct (36.0-48.0) % MCV (80.0-105.0) fl MCH (25.0-35.0) pg MCHC (31.0-37.0) g/dl RDW (11.5-14.5) % Plt Count (120.0-450.0) 10^3/uL Gran % (50.0-68.0) % Lymph % (Auto) (22.0-35.0) % Sterling % (Auto) (1.0-6.0) % Eos % (Auto) (1.5-5.0) % Baso % (Auto) (0.0-3.0) % Gran # (1.4-6.5) Lymph # (Auto) (1.2-3.4) Sterling # (Auto) (0.1-0.6) Eos # (Auto) (0.0-0.7) Baso # (Auto) (0.0-2.0) K/mm3 Neutrophils % (Manual) (50.0-70.0) % Lymphocytes % (Manual) (22.0-35.0) % Monocytes % (Manual) (1.0-6.0) % Platelet Evaluation (NORMAL) PT (9.4-12.5) SECONDS INR APTT (25.1-36.5) Seconds Sodium (132-148) mmol/L Potassium (3.6-5.0) mmol/L Chloride (98-107) mmol/L Carbon Dioxide (21-33) mmol/L Anion Gap (10-20) BUN (7-21) mg/dL Creatinine (0.7-1.2) mg/dl Est GFR ( Amer) Est GFR (Non-Af Amer) POC Glucose (mg/dL) 154 H 103 (65-110) mg/dL Random Glucose (70-110) mg/dL Calcium (8.4-10.5) mg/dL Phosphorus (2.5-4.5) mg/dL Magnesium (1.7-2.2) mg/dL Total Bilirubin (0.2-1.3) mg/dL AST (14-36) U/L ALT (7-56) U/L Alkaline Phosphatase (38-126) U/L Ammonia 22 (9-33) umol/L Total Protein (5.8-8.3) g/dL Albumin (3.0-4.8) g/dL Globulin gm/dL Albumin/Globulin Ratio (1.1-1.8) Crossmatch 12/30/17 12/30/17 12/30/17 Range/Units 08:00 08:00 07:47 WBC 10.1 (4.5-11.0) 10^3/ul RBC 3.85 (3.5-6.1) 10^6/uL Hgb 10.7 L (12.0-16.0) g/dL Hct 31.7 L (36.0-48.0) % MCV 82.3 (80.0-105.0) fl MCH 27.8 (25.0-35.0) pg MCHC 33.8 (31.0-37.0) g/dl RDW 15.8 H (11.5-14.5) % Plt Count 35 L* (120.0-450.0) 10^3/uL Gran % 90.1 H (50.0-68.0) % Lymph % (Auto) 7.8 L (22.0-35.0) % Sterling % (Auto) 2.1 (1.0-6.0) % Eos % (Auto) 0.0 L (1.5-5.0) % Baso % (Auto) 0.0 (0.0-3.0) % Gran # 9.14 H (1.4-6.5) Lymph # (Auto) 0.8 L (1.2-3.4) Sterling # (Auto) 0.2 (0.1-0.6) Eos # (Auto) 0.0 (0.0-0.7) Baso # (Auto) 0.00 (0.0-2.0) K/mm3 Neutrophils % (Manual) 87 H (50.0-70.0) % Lymphocytes % (Manual) 11 L (22.0-35.0) % Monocytes % (Manual) 2 (1.0-6.0) % Platelet Evaluation Low (NORMAL) PT (9.4-12.5) SECONDS INR APTT (25.1-36.5) Seconds Sodium 145 (132-148) mmol/L Potassium 4.4 (3.6-5.0) mmol/L Chloride 112 H (98-107) mmol/L Carbon Dioxide 29 (21-33) mmol/L Anion Gap 8 L (10-20) BUN 14 (7-21) mg/dL Creatinine 0.5 L (0.7-1.2) mg/dl Est GFR ( Amer) > 60 Est GFR (Non-Af Amer) > 60 POC Glucose (mg/dL) 82 (65-110) mg/dL Random Glucose 88 (70-110) mg/dL Calcium 7.4 L (8.4-10.5) mg/dL Phosphorus 2.0 L (2.5-4.5) mg/dL Magnesium 1.6 L (1.7-2.2) mg/dL Total Bilirubin 0.9 (0.2-1.3) mg/dL AST 718 H D (14-36) U/L ALT 707 H (7-56) U/L Alkaline Phosphatase 731 H D (38-126) U/L Ammonia (9-33) umol/L Total Protein 4.6 L (5.8-8.3) g/dL Albumin 2.0 L (3.0-4.8) g/dL Globulin 2.6 gm/dL Albumin/Globulin Ratio 0.8 L (1.1-1.8) Crossmatch 12/30/17 12/30/17 12/30/17 Range/Units 06:00 03:53 00:07 WBC (4.5-11.0) 10^3/ul RBC (3.5-6.1) 10^6/uL Hgb (12.0-16.0) g/dL Hct (36.0-48.0) % MCV (80.0-105.0) fl MCH (25.0-35.0) pg MCHC (31.0-37.0) g/dl RDW (11.5-14.5) % Plt Count (120.0-450.0) 10^3/uL Gran % (50.0-68.0) % Lymph % (Auto) (22.0-35.0) % Sterling % (Auto) (1.0-6.0) % Eos % (Auto) (1.5-5.0) % Baso % (Auto) (0.0-3.0) % Gran # (1.4-6.5) Lymph # (Auto) (1.2-3.4) Sterling # (Auto) (0.1-0.6) Eos # (Auto) (0.0-0.7) Baso # (Auto) (0.0-2.0) K/mm3 Neutrophils % (Manual) (50.0-70.0) % Lymphocytes % (Manual) (22.0-35.0) % Monocytes % (Manual) (1.0-6.0) % Platelet Evaluation (NORMAL) PT 14.4 H (9.4-12.5) SECONDS INR 1.25 APTT 39.4 H (25.1-36.5) Seconds Sodium (132-148) mmol/L Potassium (3.6-5.0) mmol/L Chloride (98-107) mmol/L Carbon Dioxide (21-33) mmol/L Anion Gap (10-20) BUN (7-21) mg/dL Creatinine (0.7-1.2) mg/dl Est GFR ( Amer) Est GFR (Non-Af Amer) POC Glucose (mg/dL) 105 99 (65-110) mg/dL Random Glucose (70-110) mg/dL Calcium (8.4-10.5) mg/dL Phosphorus (2.5-4.5) mg/dL Magnesium (1.7-2.2) mg/dL Total Bilirubin (0.2-1.3) mg/dL AST (14-36) U/L ALT (7-56) U/L Alkaline Phosphatase (38-126) U/L Ammonia (9-33) umol/L Total Protein (5.8-8.3) g/dL Albumin (3.0-4.8) g/dL Globulin gm/dL Albumin/Globulin Ratio (1.1-1.8) Crossmatch 12/29/17 12/29/17 12/26/17 Range/Units 20:47 19:00 03:00 WBC (4.5-11.0) 10^3/ul RBC (3.5-6.1) 10^6/uL Hgb (12.0-16.0) g/dL Hct (36.0-48.0) % MCV (80.0-105.0) fl MCH (25.0-35.0) pg MCHC (31.0-37.0) g/dl RDW (11.5-14.5) % Plt Count (120.0-450.0) 10^3/uL Gran % (50.0-68.0) % Lymph % (Auto) (22.0-35.0) % Sterling % (Auto) (1.0-6.0) % Eos % (Auto) (1.5-5.0) % Baso % (Auto) (0.0-3.0) % Gran # (1.4-6.5) Lymph # (Auto) (1.2-3.4) Sterling # (Auto) (0.1-0.6) Eos # (Auto) (0.0-0.7) Baso # (Auto) (0.0-2.0) K/mm3 Neutrophils % (Manual) (50.0-70.0) % Lymphocytes % (Manual) (22.0-35.0) % Monocytes % (Manual) (1.0-6.0) % Platelet Evaluation (NORMAL) PT (9.4-12.5) SECONDS INR APTT (25.1-36.5) Seconds Sodium (132-148) mmol/L Potassium (3.6-5.0) mmol/L Chloride (98-107) mmol/L Carbon Dioxide (21-33) mmol/L Anion Gap (10-20) BUN (7-21) mg/dL Creatinine (0.7-1.2) mg/dl Est GFR ( Amer) Est GFR (Non-Af Amer) POC Glucose (mg/dL) 115 H (65-110) mg/dL Random Glucose (70-110) mg/dL Calcium (8.4-10.5) mg/dL Phosphorus 2.6 (2.5-4.5) mg/dL Magnesium (1.7-2.2) mg/dL Total Bilirubin (0.2-1.3) mg/dL AST (14-36) U/L ALT (7-56) U/L Alkaline Phosphatase (38-126) U/L Ammonia (9-33) umol/L Total Protein (5.8-8.3) g/dL Albumin (3.0-4.8) g/dL Globulin gm/dL Albumin/Globulin Ratio (1.1-1.8) Crossmatch See Detail Laboratory Results - last 24 hr 12/26/17 12/29/17 12/29/17 03:00 19:00 20:47 WBC RBC Hgb Hct MCV MCH MCHC RDW Plt Count Gran % Lymph % (Auto) Sterling % (Auto) Eos % (Auto) Baso % (Auto) Gran # Lymph # (Auto) Sterling # (Auto) Eos # (Auto) Baso # (Auto) Neutrophils % (Manual) Lymphocytes % (Manual) Monocytes % (Manual) Platelet Evaluation PT INR APTT Sodium Potassium Chloride Carbon Dioxide Anion Gap BUN Creatinine Est GFR ( Amer) Est GFR (Non-Af Amer) POC Glucose (mg/dL) 115 H Random Glucose Calcium Phosphorus 2.6 Magnesium Total Bilirubin AST ALT Alkaline Phosphatase Ammonia Total Protein Albumin Globulin Albumin/Globulin Ratio Crossmatch See Detail 12/30/17 12/30/17 12/30/17 00:07 03:53 06:00 WBC RBC Hgb Hct MCV MCH MCHC RDW Plt Count Gran % Lymph % (Auto) Sterling % (Auto) Eos % (Auto) Baso % (Auto) Gran # Lymph # (Auto) Sterling # (Auto) Eos # (Auto) Baso # (Auto) Neutrophils % (Manual) Lymphocytes % (Manual) Monocytes % (Manual) Platelet Evaluation PT 14.4 H INR 1.25 APTT 39.4 H Sodium Potassium Chloride Carbon Dioxide Anion Gap BUN Creatinine Est GFR ( Amer) Est GFR (Non-Af Amer) POC Glucose (mg/dL) 99 105 Random Glucose Calcium Phosphorus Magnesium Total Bilirubin AST ALT Alkaline Phosphatase Ammonia Total Protein Albumin Globulin Albumin/Globulin Ratio Crossmatch 12/30/17 12/30/17 12/30/17 07:47 08:00 08:00 WBC 10.1 RBC 3.85 Hgb 10.7 L Hct 31.7 L MCV 82.3 MCH 27.8 MCHC 33.8 RDW 15.8 H Plt Count 35 L* Gran % 90.1 H Lymph % (Auto) 7.8 L Sterling % (Auto) 2.1 Eos % (Auto) 0.0 L Baso % (Auto) 0.0 Gran # 9.14 H Lymph # (Auto) 0.8 L Sterling # (Auto) 0.2 Eos # (Auto) 0.0 Baso # (Auto) 0.00 Neutrophils % (Manual) 87 H Lymphocytes % (Manual) 11 L Monocytes % (Manual) 2 Platelet Evaluation Low PT INR APTT Sodium 145 Potassium 4.4 Chloride 112 H Carbon Dioxide 29 Anion Gap 8 L BUN 14 Creatinine 0.5 L Est GFR ( Amer) > 60 Est GFR (Non-Af Amer) > 60 POC Glucose (mg/dL) 82 Random Glucose 88 Calcium 7.4 L Phosphorus 2.0 L Magnesium 1.6 L Total Bilirubin 0.9 AST 718 H D ALT 707 H Alkaline Phosphatase 731 H D Ammonia Total Protein 4.6 L Albumin 2.0 L Globulin 2.6 Albumin/Globulin Ratio 0.8 L Crossmatch 12/30/17 12/30/17 12/30/17 11:26 16:15 16:43 WBC RBC Hgb Hct MCV MCH MCHC RDW Plt Count Gran % Lymph % (Auto) Sterling % (Auto) Eos % (Auto) Baso % (Auto) Gran # Lymph # (Auto) Sterling # (Auto) Eos # (Auto) Baso # (Auto) Neutrophils % (Manual) Lymphocytes % (Manual) Monocytes % (Manual) Platelet Evaluation PT INR APTT Sodium Potassium Chloride Carbon Dioxide Anion Gap BUN Creatinine Est GFR ( Amer) Est GFR (Non-Af Amer) POC Glucose (mg/dL) 103 154 H Random Glucose Calcium Phosphorus Magnesium Total Bilirubin AST ALT Alkaline Phosphatase Ammonia 22 Total Protein Albumin Globulin Albumin/Globulin Ratio Crossmatch Critical Care Progress Note - Nutrition Nutrition: Nutrition Category Date Time Status Pureed [Dysphagia/Modified Consistency Diet] [DIET] Diets 12/29/17 Lunch Ordered Attending/Attestation - Attestation I have personally seen and examined this patient.: Yes I have fully participated in the care of the patient.: Yes I have reviewed all pertinent clinical information: Yes Notes (Text): 12/30/17 16:[address] Cazares note
--- NOTE | 2017-12-30 13:12 | CP.PCM.PN ---
Subjective - Date & Time of Evaluation Date of Evaluation: 12/30/17 Time of Evaluation: 09:30 - Subjective Subjective: Donato Basilio DO PGY-1, [employer] Medicine Progress Note for Dr. Berrios Pt seen and examined at bedside. Responsive to verbal stimuli this am, improving mentation clinically. No acute events reported overnight. Unable to obtain 12-point ROS due to pt's current mental status. Objective - Vital Signs/Intake and Output Vital Signs (last 24 hours): Temp Pulse Resp BP Pulse Ox 97.7 F 47 L 21 121/71 89 L 12/30/17 08:00 12/30/17 10:38 12/30/17 08:00 12/30/17 10:38 12/30/17 08:01 Intake and Output: 12/30/17 12/30/17 06:59 18:59 Intake Total 1320 250 Output Total 400 Balance 920 250 - Medications Medications: Current Medications Hydrocortisone Sodium Succinate (Solu-Cortef) 25 mg IVP DAILY [facility] Last Admin: 12/30/17 09:06 Dose: 25 mg Norepinephrine Bitartrate 8 mg (/ Sodium Chloride) 508 mls @ 15.24 mls/hr IV .Q24H PRN; Protocol; 4 MCG/MIN PRN Reason: TITRATE PER MD ORDER Last Titration: 12/26/17 23:46 Dose: 0 mcg/min, 0 mls/hr Levetiracetam (Keppra 500mg Ivpb) 500 mg in 100 mls @ 460 mls/hr IV Q12 [facility] Last Admin: 12/30/17 09:06 Dose: 460 mls/hr Dopamine HCl/Dextrose (Dopamine 400mg/250ml D5w) 400 mg in 250 mls @ 5.188 mls/ hr IV .Q24H PRN; Protocol; 5 MCG/KG/MIN PRN Reason: TITRATE PER MD ORDER Last Admin: 12/30/17 10:38 Dose: 5 mcg/kg/min, 5.188 mls/hr Potassium Chloride 40 meq/ (Dextrose/Sodium Chloride) 1,020 mls @ 100 mls/hr IV .[id number] [facility] Last Admin: 12/30/17 00:45 Dose: 100 mls/hr Meropenem (Merrem Iv 1 Gm Premix) 50 mls @ 100 mls/hr IVPB Q8 [facility] PRN Reason: Protocol Stop: 01/06/18 19:08 Last Admin: 12/30/17 06:31 Dose: 100 mls/hr Potassium Phosphate 15 mmole/ (Sodium Chloride) 255 mls @ 42.5 mls/hr IVPB ONCE ONE Stop: 12/30/17 14:30 Last Admin: 12/30/17 10:15 Dose: 42.5 mls/hr Pantoprazole Sodium (Protonix Inj) 40 mg IVP DAILY [facility] Last Admin: 12/30/17 09:06 Dose: 40 mg - Labs Labs: 12/30/17 08:00 12/30/17 08:00 PT 14.4 SECONDS (9.4-12.5) H 12/30/17 06:00 INR 1.25 12/30/17 06:00 APTT 39.4 Seconds (25.1-36.5) H 12/30/17 06:00 - Constitutional Appears: No Acute Distress, Chronically Ill - Head Exam Head Exam: ATRAUMATIC, NORMAL INSPECTION - Eye Exam Eye Exam: EOMI, Normal appearance, PERRL - ENT Exam ENT Exam: Mucous Membranes Moist - Neck Exam Neck Exam: Full ROM, Normal Inspection - Respiratory Exam Respiratory Exam: Clear to Ausculation Bilateral, NORMAL BREATHING PATTERN - Cardiovascular Exam Cardiovascular Exam: Bradycardia, +S1, +S2 - GI/Abdominal Exam GI & Abdominal Exam: Soft, Normal Bowel Sounds - Extremities Exam Additional comments: atrophic bilateral LEs - Neurological Exam Additional comments: somnolent but arousable, awake and alert but confused, garbled speech, following some commands, minimal spontaneous movements - Psychiatric Exam Psychiatric exam: Flat Affect - Skin Skin Exam: Dry, Intact, Warm Assessment and Plan - Assessment and Plan (Free Text) Assessment: 42F with PMHx of developmental delay reported to have absence seizure and B/L LE weakness prior to admission; was found to have altered mental status, significant hypotension, bradycardia, hypothermia, liver failure, and paroxysmal atrial fibrillation; admitted to ICU for further workup and management. Plan: AMS -Differential includes Post-ictal state vs. septic encephalopathy vs. hepatic encephalopathy vs. ACS vs. intoxication, difficult to quantify due to patient's mental status -Head CT 12/26: no acute intracranial abnormality, mild anterior scalp and periorbital edema -CT Chest/abd/pelvis 12/25: anasarca, edema of mesenteric fat and ascites, L- sided rib fxs with atelectasis or PNA in L lower lobe; f/u repeat Abd/pelvis CT today -CXR 12/28: interval development of L perihilar airspace disease which may represent pulmonary edema or PNA, small pleural effusions -F/u EEG -Prolactin elevated 29.2, Ammonia mildly elevated 37 -4 serial troponins neg -U/a without signs of UTI -UDS and Acetaminophen levels neg -HIV neg -Blood cx 1/2 pos for gram-neg rods on 12/25; repeat blood cxs 2/2 neg x 24 hrs -Urine cx neg, MRSA screen neg -C/w Merrem 1 g q 8 h -C/w Keppra 500 mg IV bid -ID, Neuro, Cardio and GI consulted, recs appreciated -NGT removed, on pureed diet, consider Peg/G-tube but need to obtain consent from POA -Palliative consulted, recs appreciated Acute liver failure - improving since admission -CT Chest/abd/pelvis findings as described above -Abd U/s 12/28: atrophied liver, diffuse increased echogenicity in liver may reflect hepatic steatosis however parenchymal infectious/inflammatory etiologies cannot be excluded; b/l renal atrophy -AST 718, ALT 707, alk phos 731 -Hepatitis and HIV work-up neg -Acetaminophen levels neg -GI consulted, recs appreciated Hypotension - improving Off pressors, BP 111/60 this am Bradycardia -EKG + tele monitoring showing sinus bradycardia in 40-50s beats/min range -Off dopamine drip -Cont to monitor in ICU -Cardio following, recs appreciated Fx L Ribs 7-9 CT chest/abd/pelvis findings as listed above Ribs XR: fxs in L 7th and 8th ribs Continue to monitor Microcytic normochromic anemia H/H today 10.7/31.7 No need for transfusion at this time Iron 55, TIBC 174, normal % sat, low transferrin, normal ferritin S/p iron sucrose x 1 in ICU Continue to monitor Pt seen, examined with, and plan discussed with Dr. Berrios, attending. Donato Basilio DO PGY-1, [employer] Pager #[phone]
--- NOTE | 2017-12-30 13:29 | PN ---
Copied To: Bk Newton MD Attending MD: Bk Newton MD DATE: 12/30/2017 SUBJECTIVE: The patient is taking a pureed diet. She is in mild sinus bradycardia. PHYSICAL EXAMINATION: VITAL SIGNS: Blood pressure 121/71, heart rate is 47, temperature 97.7, respirations 21. HEENT: Pale conjunctivae. CHEST: Diminished breath sounds over the bases. HEART: S1, S2 regular. EXTREMITIES: Significant muscle wasting. LABORATORY DATA: Today's hemoglobin and hematocrit 10.7 and 31.7, white count 10.1, platelet count 35,000. Today's INR is 1.25, PTT is 39.4. SMA-7: Sodium 145, potassium 4.4, chloride 112, CO2 29, glucose 88, BUN 14, creatinine 0.5. DIAGNOSTIC DATA: An abdominal ultrasound performed day before yesterday, patent portal vein with hepatopetal flow. ASSESSMENT: 1. Sinus bradycardia. 2. Malnutrition. 3. Thrombocytopenia. 4. Status post hypoglycemia. RECOMMENDATIONS: Continue current low-dose dopamine. Continue intravenous Keppra, IV meropenem at 1 g every 8 hours, Solu-Cortef 25 mg intravenously daily, intravenous potassium chloride replacement. Bk Newton MD
--- NOTE | 2017-12-30 13:59 | CT ---
Date of service: 12/30/2017 PROCEDURE: CT Abdomen and Pelvis with contrast HISTORY: gram - bacteremia, assess for source COMPARISON: 12/25/2017 CT TECHNIQUE: Contrast dose: 100 cc of Omni 350 Radiation dose: Total exam DLP = 206 mGy-cm. This CT exam was performed using one or more of the following dose reduction techniques: Automated exposure control, adjustment of the mA and/or kV according to patient size, and/or use of iterative reconstruction technique. FINDINGS: LOWER THORAX: Moderate size pleural effusions with bibasilar consolidation. Dilated esophagus LIVER: Unremarkable. No gross lesion or ductal dilatation. GALLBLADDER AND BILE DUCTS: The gallbladder is mildly distended. There is enhancement of the gallbladder wall. PANCREAS: Unremarkable. No gross lesion or ductal dilatation. SPLEEN: Unremarkable. ADRENALS: Unremarkable. No mass. KIDNEYS AND URETERS: Unremarkable. No hydronephrosis. No solid mass. VASCULATURE: Unremarkable. No aortic aneurysm. BOWEL: The stomach is distended. The large and small bowel are unremarkable. APPENDIX: Normal appendix. PERITONEUM: There is severe ascites and mesenteric edema consistent with anasarca. LYMPH NODES: Unremarkable. No enlarged lymph nodes. BLADDER: Unremarkable. REPRODUCTIVE: Unremarkable. BONES: No acute fracture. OTHER FINDINGS: None. IMPRESSION: Moderate size pleural effusions with bibasilar consolidation. Ascites, mesenteric edema and anasarca. No evidence of obstruction.
[2017-12-30] MEDS ORDERED: Sodium Chloride 3% for Inhalation 4 ML VIAL.NEB IH SCH (14:00)
--- NOTE | 2017-12-30 15:22 | US ---
Date of service: 12/29/2017 HISTORY: ?Bleeding/Possible mass eval COMPARISON: Abdomen pelvis CT examination 12/30/2017. TECHNIQUE: Transabdominal and transvaginal pelvic ultrasound was performed with longitudinal and transverse images submitted for interpretation. FINDINGS: Moderate pelvic ascites identified. UTERUS: Measures 5.3 x 2.5 x 4.2 cm. Normal in size and appearance. No fibroid or other mass lesion seen. ENDOMETRIUM: Measures 3.1 mm in diameter. Unremarkable. CERVIX: No cervical abnormality identified. RIGHT OVARY: The right ovary is not identified in part due to overlying/obscuring bowel. LEFT OVARY: Measures 2.6 x 1.7 x 2.0 cm. No solid mass. Normal flow. FREE FLUID: No significant free fluid noted. OTHER FINDINGS: None. IMPRESSION: Moderate pelvic ascites identified. No definite suspicious cyst or solid mass throughout the exam. Bowel obscures the right adnexa compartment however. Left ovary appears unremarkable ; right ovary not identified.
--- NOTE | 2017-12-30 16:03 | PN ---
Copied To: Giancarlo Rizo MD Attending MD: Giancarlo Rizo MD DATE: 12/30/2017 SUBJECTIVE: The patient is lying in bed. She is awake, alert. She is verbalizing. Swallowing study yesterday revealed moderate oropharyngeal dysphagia. A pureed diet with thin liquids was recommended. PHYSICAL EXAMINATION: VITAL SIGNS: Reveal temperature of 97.7, blood pressure 121/71, heart rate of 47. HEENT: Reveals bitemporal wasting. Conjunctivae pale. Sclerae white. NECK: Supple. LUNGS: Reveal distant breath sounds. HEART: Reveals regular rate and rhythm. ABDOMEN: Soft, nontender. EXTREMITIES: Show muscle wasting of the extremities. LABORATORY DATA: Reveal white blood cell count 10.1, hemoglobin 10.7, platelet count 35,000. Chemistries reveal AST of 718, ALT 707, alkaline phosphatase of 731. These have increased since yesterday. IMPRESSION: 1. Elevated liver enzymes, initially secondary to passive congestion of the liver, now with rise in liver enzymes. This may be related to meropenem, which was started 2 days ago. There are no other hepatotoxic medications that the patient is receiving. 2. Mental retardation. 3. Severe protein calorie malnutrition. 4. Ascites with mesenteric edema. RECOMMENDATIONS: 1. We will start the patient on pureed diet with thin liquids. 2. Close observation for aspiration. 3. We will discontinue meropenem and ask Infectious Disease to switch to another broad-spectrum antibiotic. Currently, the patient is afebrile with a normal white count. Giancarlo Rizo MD
--- NOTE | 2017-12-30 18:27 | RAD ---
Date of service: 12/30/2017 HISTORY: Line confirmation COMPARISON: 12/28/2017 FINDINGS: LUNGS: Extensive left-sided pulmonary opacity on prior examination has decreased mildly in extent. Abnormal opacity at right base likely due to dependent pleural fluid. PLEURA: Small bilateral pleural effusion. No pneumothorax. There is a collection of gas at the right lung base of uncertain etiology. This measures roughly 3 cm in diameter. Cannot rule out small loculated pneumothorax or pneumatoceles. This was not evident on prior examination. CARDIOVASCULAR: New right IJ central venous catheter. Status post removal of nasogastric tube. OSSEOUS STRUCTURES: No significant abnormalities. VISUALIZED UPPER ABDOMEN: Normal. OTHER FINDINGS: None. IMPRESSION: Mildly decreased opacity of diffuse left-sided infiltrate. Small bilateral pleural effusion. Collection of gas at right lung base of uncertain significance. See above. New right IJ multi lumen central venous catheter. Status post removal of nasogastric tube. .
[2017-12-30 20:58] LABS: IMMUNOGLOBULIN G 974.3 mg/dL (700.0-1600.0); IMMUNOGLOBULIN M 47.5 mg/dL (40.0-230.0)
[2017-12-30] MEDS: Piperacillin/Tazobact 3.375 gm 100 ML IVPB SCH (21:02)
[2017-12-31] MEDS: Piperacillin/Tazobact 3.375 gm 100 ML IVPB SCH ×4 (00:54→18:49)
[2017-12-31 04:43] LABS: GRAN # 10.82 (1.4-6.5); GRAN % 93.1 % (50.0-68.0); HEMOGLOBIN 11.6 g/dL (12.0-16.0); LYMPH # 0.7 (1.2-3.4); LYMPH % 5.6 % (22.0-35.0); MEAN CELL VOLUME 85.2 fl (80.0-105.0); MEAN CORPUSCULAR HEMOGLOBIN 27.6 pg (25.0-35.0); MEAN CORPUSCULAR HGB CONC 32.4 g/dl (31.0-37.0); MONO # 0.2 (0.1-0.6); MONO % 1.3 % (1.0-6.0); RED CELL DISTRIBUTION WIDTH 15.8 % (11.5-14.5); WHITE BLOOD COUNT 11.6 10^3/ul (4.5-11.0)
[2017-12-31 04:47] LABS: PLATELET COUNT 48 10^3/uL (120.0-450.0)
[2017-12-31 05:10] LABS: INR 1.17; PROTHROMBIN TIME 13.5 SECONDS (9.4-12.5)
[2017-12-31 05:15] LABS: ALB/GLOB RATIO 0.8 (1.1-1.8); ALBUMIN 2.3 g/dL (3.0-4.8); ALT/SGPT 763 U/L (7-56); AST/SGOT 465 U/L (14-36); BLOOD UREA NITROGEN 11 mg/dL (7-21); CALCIUM 7.8 mg/dL (8.4-10.5); GFR NON-AFRICAN AMERICAN > 60
[2017-12-31] MEDS: levETIRAcetam 500mg IVPB 500 MG/100 ML BAG IV SCH ×2 (09:19→22:20)
[2017-12-31] MEDS ORDERED: Potassium Phosphate 15 MMOLE in Sodium Chloride 0.9% 250 ML IVPB ONE (09:35)
[2017-12-31] MEDS: Potassium Chloride 40 MEQ in Dextrose 5%/0.45% NS 1,000 ML IV SCH ×3 (11:20→22:26)
--- NOTE | 2017-12-31 11:31 | PN ---
Copied To: Abdiaziz Sousa MD Attending MD: Abdiaziz Sousa MD DATE: 12/31/2017 SUBJECTIVE: The patient is in bed, in no acute distress. PHYSICAL EXAMINATION VITAL SIGNS: Temperature of 97, blood pressure is 140/100, respiratory rate of 18, heart rate of 100. HEENT: Unremarkable. NECK: Supple. LUNGS: Decreased breath sounds. HEART: Normal S1 and S2. ABDOMEN: Soft, nontender. No rebound. No guarding. LABORATORY EXAMINATION: Reveals white count of 11,600 and platelets of 48. Chemistry reveals a BUN of 11, creatinine of 0.5. Alk phos is 866, AST is 465, ____ 763. The patient did have an elevated bilirubin, which now is normalized, it was up to 2.7 bilirubin on 12/27/2017 reviewing the trend of bilirubin and the immunology is reviewed and pending. Serology is also reviewed and pending. Microbiology is noted a Gram-negative nichole in the blood, still has not been identified. MEDICATIONS: Review of medications reveals the patient to be on Zosyn. ASSESSMENT AND PLAN: A 42-year-old female who was in the ICU 129, bed 6, with BMI of only 11 with end-stage cachectic, chronically ill, mentally disabled, developmentally delayed with seizures, now with sepsis with a Gram-negative nichole bacteremia with a negative urine culture, biliary source with LFT elevations specifically alkaline phosphatase is high with increase in bilirubin and currently now on Zosyn, concerned about the meropenem causing increase in LFTs. Dr. Rizo's note from yesterday is reviewed and he discontinued meropenem. I started Zosyn, pending further workup including MRCP and HIDA scan and we will make further recommendations. The case was discussed with the patient's mother this morning at the bedside at length. The patient is a full code. Abdiaziz Sousa MD
--- NOTE | 2017-12-31 11:47 | PN ---
Copied To: Giancarlo Rizo MD Attending MD: Giancarlo Rizo MD DATE: 12/31/2017 SUBJECTIVE: The patient is lying in bed in ICU. She is awake, alert. She is conversant. PHYSICAL EXAMINATION: VITAL SIGNS: Reveal blood pressure 136/93, heart rate 120. She is afebrile. HEENT: Reveal sclerae to be white. Conjunctivae pink. NECK: Supple. CHEST: Reveal lungs to be clear with decreased breath sounds at the bases. HEART: Reveals a regular rate and rhythm. ABDOMEN: Soft, distended with ascites. EXTREMITIES: Show muscle wasting of the extremities. There is no pedal edema. LABORATORY DATA: Reveal white blood cell count 11.6, hemoglobin 11.6, platelet count of 48,000. Chemistries reveal AST down to 465, ALT 763, alkaline phosphatase of 866, total bilirubin is normal. IMPRESSION: A 42-year-old female with mental retardation admitted with altered mental status, seizures with ascites, cryptogenic cirrhosis, elevated liver enzymes secondary to passive congestion with a recent bump in her liver enzymes most likely secondary to meropenem. CT scan of the abdomen and pelvis do not show any evidence of biliary dilatation. I do not believe that the patient has biliary sepsis. Her bilirubin is normal. Recent blood cultures were negative. She is not having any abdominal pain. RECOMMENDATIONS: 1. Continue pureed diet with close observation for aspiration. 2. Follow liver enzymes. 3. Await antimitochondrial antibody. Gaincarlo Rizo MD
--- NOTE | 2017-12-31 14:32 | CP.CCUPN ---
<Tenzin Welch - Last Filed: 12/31/17 14:33> CCU Subjective - Physician Review Subjective (Free Text): Tenzin Welch DO PGY1 - Internal Medicine Contract Project Manager - ICU Progress Note Seen and examined this morning at bedside in ICU. No changes in mental status form yesterday Patient appears to be at baseline ROS unobtainable due to mental status 12/31/17 14:28 Critical Care Time Spent (in minutes): 60 CCU Objective - Vital Signs / Intake & Output Vital Signs (Last 4 hours): Vital Signs Pulse Resp BP Pulse Ox 12/31/17 13:16 131 H 166/89 H 12/31/17 11:01 120 H 136/93 H 79 L 12/31/17 11:00 107 H 33 H 80 L 12/31/17 10:57 100 H 36 H 12/31/17 10:56 101 H 33 H 12/31/17 10:55 88 12/31/17 10:51 99 H 13 12/31/17 10:50 106 H 18 12/31/17 10:49 103 H 22 12/31/17 10:48 89 12/31/17 10:47 86 29 H 12/31/17 10:46 86 17 12/31/17 10:45 89 23 12/31/17 10:44 80 41 H 12/31/17 10:43 91 H 12/31/17 10:31 125 H 15 154/70 H 81 L Intake and Output (Last 8hrs): Intake & Output 12/30/17 12/31/17 12/31/17 22:59 06:59 14:59 Intake Total 1555 Output Total 1000 Balance 555 Intake: IV 1555 Right Internal Jugular 1555 Oral 0 Output: Urine 1000 Urethral (Jimenez) 1000 Other: # Bowel Movements 3 - Physical Exam Head: Positive for: Atraumatic, Normocephalic Pupils: Positive for: PERRL Extroacular Muscles: Positive for: EOMI Conjunctiva: Positive for: Normal Mouth: Positive for: Moist Mucous Membranes, Other (POOR DENTITION) Neck: Positive for: Normal Range of Motion Respiratory/Chest: Positive for: Clear to Auscultation, Good Air Exchange, Tachypneic, Other (contracted to left side ). Negative for: Respiratory Distress, Accessory Muscle Use, Wheezes, Decreased Breath Sounds, Rales, Retracting, Rhonchi, Tender to Palpation Cardiovascular: Positive for: Regular Rate and Rhythm, Normal S1, S2. Negative for: Murmurs Abdomen: Positive for: Other (Abdomen is scaphoid;). Negative for: Tenderness, Distention, Normal Bowel Sounds, Peritoneal Signs, Rebound, Guarding, McBurney' s Point Tender, Rovsing's Sign Present, Hernias, Feeding Tubes, Ostomy Tubes, Mass/Organomegaly, Scars Back: Positive for: Normal Inspection Upper Extremity: Positive for: Normal Inspection. Negative for: Cyanosis, Edema Lower Extremity: Positive for: Normal Inspection, NORMAL PULSES ( pulses strong and equal, bilateral and present). Negative for: Edema Neurological: Positive for: GCS=15, CN II-XII Intact, Speech Normal Skin: Positive for: Warm, Dry, Normal Color. Negative for: Rashes Psychiatric: Positive for: Alert, Lethargic - Medications Active Medications: Active Medications Generic Name Dose Route Start Last Admin Trade Name Freq PRN Reason Stop Dose Admin Norepinephrine Bitartrate 8 mg 508 mls @ 15.24 mls/hr 12/25/17 20:06 23:46 / Sodium Chloride IV 0 mcg/min .Q24H PRN 0 mls/hr TITRATE PER MD ORDER Titration Protocol 4 MCG/MIN Levetiracetam 500 mg in 100 mls @ 460 mls/hr 12/27/17 07:57 12/31/17 09:19 Keppra 500mg Ivpb IV 460 mls/hr Q12 NASH Administration Dopamine HCl/Dextrose 400 mg in 250 mls @ 5.188 mls/hr 12/27/17 08:40 13:32 Dopamine 400mg/250ml D5w IV 0 mcg/kg/min .Q24H PRN 0 mls/hr TITRATE PER MD ORDER Titration Protocol 5 MCG/KG/MIN Potassium Chloride 40 meq/ 1,020 mls @ 100 mls/hr 12/27/17 21:15 12/31/17 11: 20 Dextrose/Sodium Chloride IV 100 mls/hr .[id number] NASH Administration Piperacillin Sod/Tazobactam Sod 100 mls @ 200 mls/hr 12/30/17 19:55 12/31/17 12:19 Zosyn 3.375 In Ns 100ml IVPB 01/08/18 19:56 200 mls/hr Q6 NASH Administration Protocol Pantoprazole Sodium 40 mg 12/26/17 10:00 12/31/17 09:20 Protonix Inj IVP 40 mg DAILY NASH Administration Potassium Phos/Sodium Phos 1 pkt 12/31/17 14:00 Neutra-Phos PO TID NASH - Patient Studies Lab Studies: Microbiology Studies 12/28/17 17:00 Blood Culture - Preliminary Blood NO GROWTH AFTER 48 HOURS 12/28/17 16:30 Blood Culture - Preliminary Blood NO GROWTH AFTER 48 HOURS Lab Studies 12/31/17 12/31/17 12/31/17 Range/Units 04:30 04:30 04:30 WBC 11.6 H (4.5-11.0) 10^3/ul RBC 4.20 (3.5-6.1) 10^6/uL Hgb 11.6 L (12.0-16.0) g/dL Hct 35.8 L (36.0-48.0) % MCV 85.2 (80.0-105.0) fl MCH 27.6 (25.0-35.0) pg MCHC 32.4 (31.0-37.0) g/dl RDW 15.8 H (11.5-14.5) % Plt Count 48 L* (120.0-450.0) 10^3/uL Gran % 93.1 H (50.0-68.0) % Lymph % (Auto) 5.6 L (22.0-35.0) % [place] % (Auto) 1.3 (1.0-6.0) % Eos % (Auto) 0.0 L (1.5-5.0) % Baso % (Auto) 0.0 (0.0-3.0) % Gran # 10.82 H (1.4-6.5) Lymph # (Auto) 0.7 L (1.2-3.4) [place] # (Auto) 0.2 (0.1-0.6) Eos # (Auto) 0.0 (0.0-0.7) Baso # (Auto) 0.00 (0.0-2.0) K/mm3 PT 13.5 H (9.4-12.5) SECONDS INR 1.17 APTT 36.0 (25.1-36.5) Seconds Sodium 147 (132-148) mmol/L Potassium 5.0 (3.6-5.0) mmol/L Chloride 112 H (98-107) mmol/L Carbon Dioxide 29 (21-33) mmol/L Anion Gap 11 (10-20) BUN 11 (7-21) mg/dL Creatinine 0.5 L (0.7-1.2) mg/dl Est GFR ( Amer) > 60 Est GFR (Non-Af Amer) > 60 POC Glucose (mg/dL) (65-110) mg/dL Random Glucose 110 (70-110) mg/dL Calcium 7.8 L (8.4-10.5) mg/dL Phosphorus 2.0 L (2.5-4.5) mg/dL Magnesium 1.9 (1.7-2.2) mg/dL Total Bilirubin 0.5 (0.2-1.3) mg/dL GGT (8-78) U/L AST 465 H D (14-36) U/L ALT 763 H (7-56) U/L Alkaline Phosphatase 866 H (38-126) U/L Ammonia (9-33) umol/L Total Protein 5.1 L (5.8-8.3) g/dL Albumin 2.3 L (3.0-4.8) g/dL Globulin 2.8 gm/dL Albumin/Globulin Ratio 0.8 L (1.1-1.8) Copper IgG (700.0-1600.0) mg/dL IgM (40.0-230.0) mg/dL Anti-Mitochondrial Ab (Negative) Smooth Muscle Ab Titer Anti-Smooth Muscle Ab (Negative) 12/31/17 12/30/17 12/30/17 Range/Units 02:56 16:43 16:15 WBC (4.5-11.0) 10^3/ul RBC (3.5-6.1) 10^6/uL Hgb (12.0-16.0) g/dL Hct (36.0-48.0) % MCV (80.0-105.0) fl MCH (25.0-35.0) pg MCHC (31.0-37.0) g/dl RDW (11.5-14.5) % Plt Count (120.0-450.0) 10^3/uL Gran % (50.0-68.0) % Lymph % (Auto) (22.0-35.0) % [place] % (Auto) (1.0-6.0) % Eos % (Auto) (1.5-5.0) % Baso % (Auto) (0.0-3.0) % Gran # (1.4-6.5) Lymph # (Auto) (1.2-3.4) [place] # (Auto) (0.1-0.6) Eos # (Auto) (0.0-0.7) Baso # (Auto) (0.0-2.0) K/mm3 PT (9.4-12.5) SECONDS INR APTT (25.1-36.5) Seconds Sodium (132-148) mmol/L Potassium (3.6-5.0) mmol/L Chloride (98-107) mmol/L Carbon Dioxide (21-33) mmol/L Anion Gap (10-20) BUN (7-21) mg/dL Creatinine (0.7-1.2) mg/dl Est GFR ( Amer) Est GFR (Non-Af Amer) POC Glucose (mg/dL) 156 H 154 H (65-110) mg/dL Random Glucose (70-110) mg/dL Calcium (8.4-10.5) mg/dL Phosphorus (2.5-4.5) mg/dL Magnesium (1.7-2.2) mg/dL Total Bilirubin (0.2-1.3) mg/dL GGT (8-78) U/L AST (14-36) U/L ALT (7-56) U/L Alkaline Phosphatase (38-126) U/L Ammonia (9-33) umol/L Total Protein (5.8-8.3) g/dL Albumin (3.0-4.8) g/dL Globulin gm/dL Albumin/Globulin Ratio (1.1-1.8) Copper TNP IgG (700.0-1600.0) mg/dL IgM (40.0-230.0) mg/dL Anti-Mitochondrial Ab (Negative) Smooth Muscle Ab Titer TEST NOT PERFORMED Anti-Smooth Muscle Ab Negative (Negative) 08/12/30/17 12/30/17 Range/Units 16:15 16:15 16:15 WBC (4.5-11.0) 10^3/ul RBC (3.5-6.1) 10^6/uL Hgb (12.0-16.0) g/dL Hct (36.0-48.0) % MCV (80.0-105.0) fl MCH (25.0-35.0) pg MCHC (31.0-37.0) g/dl RDW (11.5-14.5) % Plt Count (120.0-450.0) 10^3/uL Gran % (50.0-68.0) % Lymph % (Auto) (22.0-35.0) % [place] % (Auto) (1.0-6.0) % Eos % (Auto) (1.5-5.0) % Baso % (Auto) (0.0-3.0) % Gran # (1.4-6.5) Lymph # (Auto) (1.2-3.4) [place] # (Auto) (0.1-0.6) Eos # (Auto) (0.0-0.7) Baso # (Auto) (0.0-2.0) K/mm3 PT (9.4-12.5) SECONDS INR APTT (25.1-36.5) Seconds Sodium (132-148) mmol/L Potassium (3.6-5.0) mmol/L Chloride (98-107) mmol/L Carbon Dioxide (21-33) mmol/L Anion Gap (10-20) BUN (7-21) mg/dL Creatinine (0.7-1.2) mg/dl Est GFR ( Amer) Est GFR (Non-Af Amer) POC Glucose (mg/dL) (65-110) mg/dL Random Glucose (70-110) mg/dL Calcium (8.4-10.5) mg/dL Phosphorus (2.5-4.5) mg/dL Magnesium (1.7-2.2) mg/dL Total Bilirubin (0.2-1.3) mg/dL GGT (8-78) U/L AST (14-36) U/L ALT (7-56) U/L Alkaline Phosphatase (38-126) U/L Ammonia 22 (9-33) umol/L Total Protein (5.8-8.3) g/dL Albumin (3.0-4.8) g/dL Globulin gm/dL Albumin/Globulin Ratio (1.1-1.8) Copper IgG 974.3 (700.0-1600.0) mg/dL IgM 47.5 (40.0-230.0) mg/dL Anti-Mitochondrial Ab Negative (Negative) Smooth Muscle Ab Titer Anti-Smooth Muscle Ab (Negative) 12/30/17 12/30/17 Range/Units 11:26 08:00 WBC (4.5-11.0) 10^3/ul RBC (3.5-6.1) 10^6/uL Hgb (12.0-16.0) g/dL Hct (36.0-48.0) % MCV (80.0-105.0) fl MCH (25.0-35.0) pg MCHC (31.0-37.0) g/dl RDW (11.5-14.5) % Plt Count (120.0-450.0) 10^3/uL Gran % (50.0-68.0) % Lymph % (Auto) (22.0-35.0) % [place] % (Auto) (1.0-6.0) % Eos % (Auto) (1.5-5.0) % Baso % (Auto) (0.0-3.0) % Gran # (1.4-6.5) Lymph # (Auto) (1.2-3.4) [place] # (Auto) (0.1-0.6) Eos # (Auto) (0.0-0.7) Baso # (Auto) (0.0-2.0) K/mm3 PT (9.4-12.5) SECONDS INR APTT (25.1-36.5) Seconds Sodium (132-148) mmol/L Potassium (3.6-5.0) mmol/L Chloride (98-107) mmol/L Carbon Dioxide (21-33) mmol/L Anion Gap (10-20) BUN (7-21) mg/dL Creatinine (0.7-1.2) mg/dl Est GFR ( Amer) Est GFR (Non-Af Amer) POC Glucose (mg/dL) 103 (65-110) mg/dL Random Glucose (70-110) mg/dL Calcium (8.4-10.5) mg/dL Phosphorus (2.5-4.5) mg/dL Magnesium (1.7-2.2) mg/dL Total Bilirubin (0.2-1.3) mg/dL GGT 99 H (8-78) U/L AST (14-36) U/L ALT (7-56) U/L Alkaline Phosphatase (38-126) U/L Ammonia (9-33) umol/L Total Protein (5.8-8.3) g/dL Albumin (3.0-4.8) g/dL Globulin gm/dL Albumin/Globulin Ratio (1.1-1.8) Copper IgG (700.0-1600.0) mg/dL IgM (40.0-230.0) mg/dL Anti-Mitochondrial Ab (Negative) Smooth Muscle Ab Titer Anti-Smooth Muscle Ab (Negative) Laboratory Results - last 24 hr 12/30/17 12/30/17 12/30/17 08:00 11:26 16:15 WBC RBC Hgb Hct MCV MCH MCHC RDW Plt Count Gran % Lymph % (Auto) [place] % (Auto) Eos % (Auto) Baso % (Auto) Gran # Lymph # (Auto) [place] # (Auto) Eos # (Auto) Baso # (Auto) PT INR APTT Sodium Potassium Chloride Carbon Dioxide Anion Gap BUN Creatinine Est GFR ( Amer) Est GFR (Non-Af Amer) POC Glucose (mg/dL) 103 Random Glucose Calcium Phosphorus Magnesium Total Bilirubin GGT 99 H AST ALT Alkaline Phosphatase Ammonia Total Protein Albumin Globulin Albumin/Globulin Ratio Copper IgG IgM Anti-Mitochondrial Ab Negative Smooth Muscle Ab Titer Anti-Smooth Muscle Ab 12/30/17 12/30/17 12/30/17 16:15 16:15 16:15 WBC RBC Hgb Hct MCV MCH MCHC RDW Plt Count Gran % Lymph % (Auto) [place] % (Auto) Eos % (Auto) Baso % (Auto) Gran # Lymph # (Auto) [place] # (Auto) Eos # (Auto) Baso # (Auto) PT INR APTT Sodium Potassium Chloride Carbon Dioxide Anion Gap BUN Creatinine Est GFR ( Amer) Est GFR (Non-Af Amer) POC Glucose (mg/dL) Random Glucose Calcium Phosphorus Magnesium Total Bilirubin GGT AST ALT Alkaline Phosphatase Ammonia 22 Total Protein Albumin Globulin Albumin/Globulin Ratio Copper TNP IgG 974.3 IgM 47.5 Anti-Mitochondrial Ab Smooth Muscle Ab Titer TEST NOT PERFORMED Anti-Smooth Muscle Ab Negative 12/30/17 12/31/17 12/31/17 16:43 02:56 04:30 WBC 11.6 H RBC 4.20 Hgb 11.6 L Hct 35.8 L MCV 85.2 MCH 27.6 MCHC 32.4 RDW 15.8 H Plt Count 48 L* Gran % 93.1 H Lymph % (Auto) 5.6 L [place] % (Auto) 1.3 Eos % (Auto) 0.0 L Baso % (Auto) 0.0 Gran # 10.82 H Lymph # (Auto) 0.7 L [place] # (Auto) 0.2 Eos # (Auto) 0.0 Baso # (Auto) 0.00 PT INR APTT Sodium Potassium Chloride Carbon Dioxide Anion Gap BUN Creatinine Est GFR ( Amer) Est GFR (Non-Af Amer) POC Glucose (mg/dL) 154 H 156 H Random Glucose Calcium Phosphorus Magnesium Total Bilirubin GGT AST ALT Alkaline Phosphatase Ammonia Total Protein Albumin Globulin Albumin/Globulin Ratio Copper IgG IgM Anti-Mitochondrial Ab Smooth Muscle Ab Titer Anti-Smooth Muscle Ab 12/31/17 12/31/17 04:30 04:30 WBC RBC Hgb Hct MCV MCH MCHC RDW Plt Count Gran % Lymph % (Auto) [place] % (Auto) Eos % (Auto) Baso % (Auto) Gran # Lymph # (Auto) [place] # (Auto) Eos # (Auto) Baso # (Auto) PT 13.5 H INR 1.17 APTT 36.0 Sodium 147 Potassium 5.0 Chloride 112 H Carbon Dioxide 29 Anion Gap 11 BUN 11 Creatinine 0.5 L Est GFR ( Amer) > 60 Est GFR (Non-Af Amer) > 60 POC Glucose (mg/dL) Random Glucose 110 Calcium 7.8 L Phosphorus 2.0 L Magnesium 1.9 Total Bilirubin 0.5 GGT AST 465 H D ALT 763 H Alkaline Phosphatase 866 H Ammonia Total Protein 5.1 L Albumin 2.3 L Globulin 2.8 Albumin/Globulin Ratio 0.8 L Copper IgG IgM Anti-Mitochondrial Ab Smooth Muscle Ab Titer Anti-Smooth Muscle Ab Fingerstick Blood Sugar Results: 86 Review of Systems - Review of Systems Systems not reviewed;Unavailable: Altered Mental Status (Baseline mental status) Critical Care Progress Note - Nutrition Nutrition: Nutrition Category Date Time Status Pureed [Dysphagia/Modified Consistency Diet] [DIET] Diets 12/29/17 Lunch Ordered Assessment/Plan - Assessment and Plan (Free Text) Assessment: 42F w/ a PMH of developmental delay presenting w/ AMS, hypotesnion, bradycardia , Acute liver failure. Neuro: -AMS improved; unchanged from day before -Most likely 2/2 Shock or Hepatic Encephalopathy -Ammonia normal -CT Head on admission negative, repeat CT head negative -Maintaining Normothermia without bear hugger now -seizure, aspiration and high fall risk precautions -EEG wnl -on keppra 500 Q12 -Neurology on consult, Dr. Rios Cardio: -Patient is maintaining MAP>65; Hypotensive on admission - possibly due to septic shock given +BCx below -Heart rate improved today -EKG on admission showed afib, currently in sinus rhythm; Less concern for Afib at this time (suspect artifact) -troponin unremarkable -echo shows EF 53%, RVSP 57 and moderate MR. Otherwise unremarkable -Cardiology Following Lungs: -Hypoxemia: O2 Sat >95% on 4L NC -Maintain O2 Sat >90% -CTA BL -CT chest shows LLB atelectasis/infiltrate and acute left rib 7-9 fracture concerning for trauma/fall -CXR shows no active disease Renal: -Maintain euvolemia -C/w D5 1/2 NS @ 100mls/hr -Hypophos -Will replete and recheck in PM today; -Monitor K+ as phos is being repleted w/ KPhos -Avoid nephrotoxic agents, hypochloremia -Replace electrolytes as needed -BUN/Cr WNL -urine drug screen and acetominphen level are negative GI: -AST/ALT improving; Alk phos worsening -Acute elevation may have been 2/2 Meropenem -Smooth muscle Ab negative -Copper/ Ceruloplasmin pending -ANCA pending -Alpha1 Antitrypsin pending -Mitochondrial Ab pending -No hepatic thrombosis on duplex -Albumin level stable however still decreased; most likely 2/2 malnutrition- Prealbumin level pending -Patient is cachectic with BMI of 10, concern for chronic malnutrition -CT abd/chest shows severe edema in mesenteric fat, esophagitis and pelvis ascites. The swelling is consistent with severe malnutrition with low albumin -Non tappable ascities on bedside US this AM -hepatitis panel is negative -CA-125 wnl -GI prophylaxis with protonix -On PO Feeds; -GI on consult, Dr. Rizo Heme: -H/H Stable; S/p 2U pRBC -Thrombocytopenia - most likely 2/2 shock liver; vs HIT -Thrombocytopenia improving -Holding heparin at this time -Continue monitor for s/s of bleeding -Microcytic Anemia : -TVUS pending Endo: -Euglycemic/ Hyperglycemic now -currently receiving D5 1/2 NS @ 125 ml/hr -c-peptide wnl -Will get A1C level -TSH WNL ID: -Questionable septic shock due to bactremia vs contaminated samples; source of infection is still unclear -WBC wnl -Blood Cx 1/2 - negative @ 3 days -Blood Cx 1/2 - GNR - THIS CULTURE MAY BE A NONVIABLE CULTURE PER MICRO LAB -Repeat Cx 2/2 neagative @ 24H -Urine Cx negative -Merem was DC'd as possible cause of transaminitis -HIV Panel negative -ID on consult, Dr. Miles GI/DVT Ppx: Protonix IVP, SCDs -Midline inserted / confirmed yesterdya -Central line pulled today Patient examined and discussed w/ attending Dr. Augustin Welch DO PGY1 Internal Medicine Contract Project Manager - Date & Time Date: 12/31/17 Time: 14:42 <Quinton Ruffin - Last Filed: 12/31/17 15:15> CCU Subjective - Physician Review Critical Care Time Spent (in minutes): 0 CCU Objective - Vital Signs / Intake & Output Vital Signs (Last 4 hours): Vital Signs Pulse BP 12/31/17 13:16 131 H 166/89 H - Medications Active Medications: Active Medications Generic Name Dose Route Start Last Admin Trade Name Freq PRN Reason Stop Dose Admin Norepinephrine Bitartrate 8 mg 508 mls @ 15.24 mls/hr 12/25/17 20:06 23:46 / Sodium Chloride IV 0 mcg/min .Q24H PRN 0 mls/hr TITRATE PER MD ORDER Titration Protocol 4 MCG/MIN Levetiracetam 500 mg in 100 mls @ 460 mls/hr 12/27/17 07:57 12/31/17 09:19 Keppra 500mg Ivpb IV 460 mls/hr Q12 NASH Administration Dopamine HCl/Dextrose 400 mg in 250 mls @ 5.188 mls/hr 12/27/17 08:40 13:32 Dopamine 400mg/250ml D5w IV 0 mcg/kg/min .Q24H PRN 0 mls/hr TITRATE PER MD ORDER Titration Protocol 5 MCG/KG/MIN Potassium Chloride 40 meq/ 1,020 mls @ 100 mls/hr 12/27/17 21:15 12/31/17 11: 20 Dextrose/Sodium Chloride IV 100 mls/hr .[id number] NASH Administration Piperacillin Sod/Tazobactam Sod 100 mls @ 200 mls/hr 12/30/17 19:55 12/31/17 12:19 Zosyn 3.375 In Ns 100ml IVPB 01/08/18 19:56 200 mls/hr Q6 NASH Administration Protocol Pantoprazole Sodium 40 mg 12/26/17 10:00 12/31/17 09:20 Protonix Inj IVP 40 mg DAILY NASH Administration Potassium Phos/Sodium Phos 1 pkt 12/31/17 14:00 Neutra-Phos PO TID NASH - Patient Studies Lab Studies: Microbiology Studies 12/28/17 17:00 Blood Culture - Preliminary Blood NO GROWTH AFTER 48 HOURS 12/28/17 16:30 Blood Culture - Preliminary Blood NO GROWTH AFTER 48 HOURS Lab Studies 12/31/17 12/31/17 12/31/17 Range/Units 14:40 04:30 04:30 WBC (4.5-11.0) 10^3/ul RBC (3.5-6.1) 10^6/uL Hgb (12.0-16.0) g/dL Hct (36.0-48.0) % MCV (80.0-105.0) fl MCH (25.0-35.0) pg MCHC (31.0-37.0) g/dl RDW (11.5-14.5) % Plt Count (120.0-450.0) 10^3/uL Gran % (50.0-68.0) % Lymph % (Auto) (22.0-35.0) % [place] % (Auto) (1.0-6.0) % Eos % (Auto) (1.5-5.0) % Baso % (Auto) (0.0-3.0) % Gran # (1.4-6.5) Lymph # (Auto) (1.2-3.4) [place] # (Auto) (0.1-0.6) Eos # (Auto) (0.0-0.7) Baso # (Auto) (0.0-2.0) K/mm3 PT 13.5 H (9.4-12.5) SECONDS INR 1.17 APTT 36.0 (25.1-36.5) Seconds Sodium 147 (132-148) mmol/L Potassium 4.4 5.0 (3.6-5.0) mmol/L Chloride 112 H (98-107) mmol/L Carbon Dioxide 29 (21-33) mmol/L Anion Gap 11 (10-20) BUN 11 (7-21) mg/dL Creatinine 0.5 L (0.7-1.2) mg/dl Est GFR ( Amer) > 60 Est GFR (Non-Af Amer) > 60 POC Glucose (mg/dL) (65-110) mg/dL Random Glucose 110 (70-110) mg/dL Calcium 7.8 L (8.4-10.5) mg/dL Phosphorus 2.0 L (2.5-4.5) mg/dL Magnesium 1.9 (1.7-2.2) mg/dL Total Bilirubin 0.5 (0.2-1.3) mg/dL GGT (8-78) U/L AST 465 H D (14-36) U/L ALT 763 H (7-56) U/L Alkaline Phosphatase 866 H (38-126) U/L Ammonia (9-33) umol/L Total Protein 5.1 L (5.8-8.3) g/dL Albumin 2.3 L (3.0-4.8) g/dL Globulin 2.8 gm/dL Albumin/Globulin Ratio 0.8 L (1.1-1.8) Copper IgG (700.0-1600.0) mg/dL IgM (40.0-230.0) mg/dL Anti-Mitochondrial Ab (Negative) Smooth Muscle Ab Titer Anti-Smooth Muscle Ab (Negative) 12/31/17 12/31/17 12/30/17 Range/Units 04:30 02:56 16:43 WBC 11.6 H (4.5-11.0) 10^3/ul RBC 4.20 (3.5-6.1) 10^6/uL Hgb 11.6 L (12.0-16.0) g/dL Hct 35.8 L (36.0-48.0) % MCV 85.2 (80.0-105.0) fl MCH 27.6 (25.0-35.0) pg MCHC 32.4 (31.0-37.0) g/dl RDW 15.8 H (11.5-14.5) % Plt Count 48 L* (120.0-450.0) 10^3/uL Gran % 93.1 H (50.0-68.0) % Lymph % (Auto) 5.6 L (22.0-35.0) % [place] % (Auto) 1.3 (1.0-6.0) % Eos % (Auto) 0.0 L (1.5-5.0) % Baso % (Auto) 0.0 (0.0-3.0) % Gran # 10.82 H (1.4-6.5) Lymph # (Auto) 0.7 L (1.2-3.4) [place] # (Auto) 0.2 (0.1-0.6) Eos # (Auto) 0.0 (0.0-0.7) Baso # (Auto) 0.00 (0.0-2.0) K/mm3 PT (9.4-12.5) SECONDS INR APTT (25.1-36.5) Seconds Sodium (132-148) mmol/L Potassium (3.6-5.0) mmol/L Chloride (98-107) mmol/L Carbon Dioxide (21-33) mmol/L Anion Gap (10-20) BUN (7-21) mg/dL Creatinine (0.7-1.2) mg/dl Est GFR ( Amer) Est GFR (Non-Af Amer) POC Glucose (mg/dL) 156 H 154 H (65-110) mg/dL Random Glucose (70-110) mg/dL Calcium (8.4-10.5) mg/dL Phosphorus (2.5-4.5) mg/dL Magnesium (1.7-2.2) mg/dL Total Bilirubin (0.2-1.3) mg/dL GGT (8-78) U/L AST (14-36) U/L ALT (7-56) U/L Alkaline Phosphatase (38-126) U/L Ammonia (9-33) umol/L Total Protein (5.8-8.3) g/dL Albumin (3.0-4.8) g/dL Globulin gm/dL Albumin/Globulin Ratio (1.1-1.8) Copper IgG (700.0-1600.0) mg/dL IgM (40.0-230.0) mg/dL Anti-Mitochondrial Ab (Negative) Smooth Muscle Ab Titer Anti-Smooth Muscle Ab (Negative) 12/30/17 12/30/17 12/30/17 Range/Units 16:15 16:15 16:15 WBC (4.5-11.0) 10^3/ul RBC (3.5-6.1) 10^6/uL Hgb (12.0-16.0) g/dL Hct (36.0-48.0) % MCV (80.0-105.0) fl MCH (25.0-35.0) pg MCHC (31.0-37.0) g/dl RDW (11.5-14.5) % Plt Count (120.0-450.0) 10^3/uL Gran % (50.0-68.0) % Lymph % (Auto) (22.0-35.0) % [place] % (Auto) (1.0-6.0) % Eos % (Auto) (1.5-5.0) % Baso % (Auto) (0.0-3.0) % Gran # (1.4-6.5) Lymph # (Auto) (1.2-3.4) [place] # (Auto) (0.1-0.6) Eos # (Auto) (0.0-0.7) Baso # (Auto) (0.0-2.0) K/mm3 PT (9.4-12.5) SECONDS INR APTT (25.1-36.5) Seconds Sodium (132-148) mmol/L Potassium (3.6-5.0) mmol/L Chloride (98-107) mmol/L Carbon Dioxide (21-33) mmol/L Anion Gap (10-20) BUN (7-21) mg/dL Creatinine (0.7-1.2) mg/dl Est GFR ( Amer) Est GFR (Non-Af Amer) POC Glucose (mg/dL) (65-110) mg/dL Random Glucose (70-110) mg/dL Calcium (8.4-10.5) mg/dL Phosphorus (2.5-4.5) mg/dL Magnesium (1.7-2.2) mg/dL Total Bilirubin (0.2-1.3) mg/dL GGT (8-78) U/L AST (14-36) U/L ALT (7-56) U/L Alkaline Phosphatase (38-126) U/L Ammonia 22 (9-33) umol/L Total Protein (5.8-8.3) g/dL Albumin (3.0-4.8) g/dL Globulin gm/dL Albumin/Globulin Ratio (1.1-1.8) Copper TNP IgG 974.3 (700.0-1600.0) mg/dL IgM 47.5 (40.0-230.0) mg/dL Anti-Mitochondrial Ab (Negative) Smooth Muscle Ab Titer TEST NOT PERFORMED Anti-Smooth Muscle Ab Negative (Negative) 12/30/17 12/30/17 12/30/17 Range/Units 16:15 11:26 08:00 WBC (4.5-11.0) 10^3/ul RBC (3.5-6.1) 10^6/uL Hgb (12.0-16.0) g/dL Hct (36.0-48.0) % MCV (80.0-105.0) fl MCH (25.0-35.0) pg MCHC (31.0-37.0) g/dl RDW (11.5-14.5) % Plt Count (120.0-450.0) 10^3/uL Gran % (50.0-68.0) % Lymph % (Auto) (22.0-35.0) % [place] % (Auto) (1.0-6.0) % Eos % (Auto) (1.5-5.0) % Baso % (Auto) (0.0-3.0) % Gran # (1.4-6.5) Lymph # (Auto) (1.2-3.4) [place] # (Auto) (0.1-0.6) Eos # (Auto) (0.0-0.7) Baso # (Auto) (0.0-2.0) K/mm3 PT (9.4-12.5) SECONDS INR APTT (25.1-36.5) Seconds Sodium (132-148) mmol/L Potassium (3.6-5.0) mmol/L Chloride (98-107) mmol/L Carbon Dioxide (21-33) mmol/L Anion Gap (10-20) BUN (7-21) mg/dL Creatinine (0.7-1.2) mg/dl Est GFR ( Amer) Est GFR (Non-Af Amer) POC Glucose (mg/dL) 103 (65-110) mg/dL Random Glucose (70-110) mg/dL Calcium (8.4-10.5) mg/dL Phosphorus (2.5-4.5) mg/dL Magnesium (1.7-2.2) mg/dL Total Bilirubin (0.2-1.3) mg/dL GGT 99 H (8-78) U/L AST (14-36) U/L ALT (7-56) U/L Alkaline Phosphatase (38-126) U/L Ammonia (9-33) umol/L Total Protein (5.8-8.3) g/dL Albumin (3.0-4.8) g/dL Globulin gm/dL Albumin/Globulin Ratio (1.1-1.8) Copper IgG (700.0-1600.0) mg/dL IgM (40.0-230.0) mg/dL Anti-Mitochondrial Ab Negative (Negative) Smooth Muscle Ab Titer Anti-Smooth Muscle Ab (Negative) Laboratory Results - last 24 hr 12/30/17 12/30/17 12/30/17 08:00 11:26 16:15 WBC RBC Hgb Hct MCV MCH MCHC RDW Plt Count Gran % Lymph % (Auto) [place] % (Auto) Eos % (Auto) Baso % (Auto) Gran # Lymph # (Auto) [place] # (Auto) Eos # (Auto) Baso # (Auto) PT INR APTT Sodium Potassium Chloride Carbon Dioxide Anion Gap BUN Creatinine Est GFR ( Amer) Est GFR (Non-Af Amer) POC Glucose (mg/dL) 103 Random Glucose Calcium Phosphorus Magnesium Total Bilirubin GGT 99 H AST ALT Alkaline Phosphatase Ammonia Total Protein Albumin Globulin Albumin/Globulin Ratio Copper IgG IgM Anti-Mitochondrial Ab Negative Smooth Muscle Ab Titer Anti-Smooth Muscle Ab 12/30/17 12/30/17 12/30/17 16:15 16:15 16:15 WBC RBC Hgb Hct MCV MCH MCHC RDW Plt Count Gran % Lymph % (Auto) [place] % (Auto) Eos % (Auto) Baso % (Auto) Gran # Lymph # (Auto) [place] # (Auto) Eos # (Auto) Baso # (Auto) PT INR APTT Sodium Potassium Chloride Carbon Dioxide Anion Gap BUN Creatinine Est GFR ( Amer) Est GFR (Non-Af Amer) POC Glucose (mg/dL) Random Glucose Calcium Phosphorus Magnesium Total Bilirubin GGT AST ALT Alkaline Phosphatase Ammonia 22 Total Protein Albumin Globulin Albumin/Globulin Ratio Copper TNP IgG 974.3 IgM 47.5 Anti-Mitochondrial Ab Smooth Muscle Ab Titer TEST NOT PERFORMED Anti-Smooth Muscle Ab Negative 12/30/17 12/31/17 12/31/17 16:43 02:56 04:30 WBC 11.6 H RBC 4.20 Hgb 11.6 L Hct 35.8 L MCV 85.2 MCH 27.6 MCHC 32.4 RDW 15.8 H Plt Count 48 L* Gran % 93.1 H Lymph % (Auto) 5.6 L [place] % (Auto) 1.3 Eos % (Auto) 0.0 L Baso % (Auto) 0.0 Gran # 10.82 H Lymph # (Auto) 0.7 L [place] # (Auto) 0.2 Eos # (Auto) 0.0 Baso # (Auto) 0.00 PT INR APTT Sodium Potassium Chloride Carbon Dioxide Anion Gap BUN Creatinine Est GFR ( Amer) Est GFR (Non-Af Amer) POC Glucose (mg/dL) 154 H 156 H Random Glucose Calcium Phosphorus Magnesium Total Bilirubin GGT AST ALT Alkaline Phosphatase Ammonia Total Protein Albumin Globulin Albumin/Globulin Ratio Copper IgG IgM Anti-Mitochondrial Ab Smooth Muscle Ab Titer Anti-Smooth Muscle Ab 12/31/17 12/31/17 12/31/17 04:30 04:30 14:40 WBC RBC Hgb Hct MCV MCH MCHC RDW Plt Count Gran % Lymph % (Auto) [place] % (Auto) Eos % (Auto) Baso % (Auto) Gran # Lymph # (Auto) [place] # (Auto) Eos # (Auto) Baso # (Auto) PT 13.5 H INR 1.17 APTT 36.0 Sodium 147 Potassium 5.0 4.4 Chloride 112 H Carbon Dioxide 29 Anion Gap 11 BUN 11 Creatinine 0.5 L Est GFR ( Amer) > 60 Est GFR (Non-Af Amer) > 60 POC Glucose (mg/dL) Random Glucose 110 Calcium 7.8 L Phosphorus 2.0 L Magnesium 1.9 Total Bilirubin 0.5 GGT AST 465 H D ALT 763 H Alkaline Phosphatase 866 H Ammonia Total Protein 5.1 L Albumin 2.3 L Globulin 2.8 Albumin/Globulin Ratio 0.8 L Copper IgG IgM Anti-Mitochondrial Ab Smooth Muscle Ab Titer Anti-Smooth Muscle Ab Critical Care Progress Note - Nutrition Nutrition: Nutrition Category Date Time Status Pureed [Dysphagia/Modified Consistency Diet] [DIET] Diets 12/29/17 Lunch Ordered Addendum Addendum: 12/31/17 15:15 ICU Attending Addendum: Patient seen and examined. Case reviewed on round with housestaff. Agree with resident note above with the following additions/exceptions: ICU Attending Addendum: 42 with mental retardation admitted with a seizure like episode, hypothermia and hypoglycemia, bradycardia likely secondary to shock. She is no longer in shock. Etio possibly from GNR in blood. Awaiting bug identification. ID advising abx. I performed a bedside US looking at her ascities however I did not see a large enough pocket that would be safe to tap especially considering her low plat. If there is concern for SBP still, would defer paracentesis to IR. Her HB is holding, likely anemic as baseline from Iron Def; cont iron IV; HB goal > 7 Plat are low, may be hepatic cause or med induced, cont to monitor, goal > 20; Improved from 35 to 48 today. Nutrition is a major concern. Cont feeding as per nutrition and guard for refeeding syndrome, replace phos. 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 She has been hemodynamically stable, not requiring pressors and no longer hypoglycemic. Ok with transfer out of ICU. Will pull out central line now that she has a mid line. Rest of care as noted above. Quinton Ruffin MD Tube Closing Machine Operator Critical care time : 35 mins
[2017-12-31] MEDS: Potassium & Sodium Phosphate PO SCH ×2 (14:35→18:50)
--- NOTE | 2017-12-31 15:04 | CP.PCM.PN ---
Subjective - Date & Time of Evaluation Date of Evaluation: 12/31/17 Time of Evaluation: 09:45 - Subjective Subjective: Donato Basilio DO PGY-1, Signs Cleaner Medicine Progress Note for Dr. Oneal Pt seen and examined at bedside. Improving mentation, responding to commands. 12 -point ROS unobtainable due to pt's current mental status. No acute events reported overnight. Objective - Vital Signs/Intake and Output Vital Signs (last 24 hours): Temp Pulse Resp BP Pulse Ox 97.8 F 131 H 33 H 166/89 H 79 L 12/31/17 00:00 12/31/17 13:16 12/31/17 11:00 12/31/17 13:16 12/31/17 11:01 - Medications Medications: Current Medications Norepinephrine Bitartrate 8 mg (/ Sodium Chloride) 508 mls @ 15.24 mls/hr IV .Q24H PRN; Protocol; 4 MCG/MIN PRN Reason: TITRATE PER MD ORDER Last Titration: 12/26/17 23:46 Dose: 0 mcg/min, 0 mls/hr Levetiracetam (Keppra 500mg Ivpb) 500 mg in 100 mls @ 460 mls/hr IV Q12 [facility] Last Admin: 12/31/17 09:19 Dose: 460 mls/hr Dopamine HCl/Dextrose (Dopamine 400mg/250ml D5w) 400 mg in 250 mls @ 5.188 mls/ hr IV .Q24H PRN; Protocol; 5 MCG/KG/MIN PRN Reason: TITRATE PER MD ORDER Last Titration: 12/30/17 13:32 Dose: 0 mcg/kg/min, 0 mls/hr Potassium Chloride 40 meq/ (Dextrose/Sodium Chloride) 1,020 mls @ 100 mls/hr IV .[id number] [facility] Last Admin: 12/31/17 11:20 Dose: 100 mls/hr Piperacillin Sod/Tazobactam Sod (Zosyn 3.375 In Ns 100ml) 100 mls @ 200 mls/hr IVPB Q6 [facility] PRN Reason: Protocol Stop: 01/08/18 19:56 Last Admin: 12/31/17 12:19 Dose: 200 mls/hr Pantoprazole Sodium (Protonix Inj) 40 mg IVP DAILY [facility] Last Admin: 12/31/17 09:20 Dose: 40 mg Potassium Phos/Sodium Phos (Neutra-Phos) 1 pkt PO TID [facility] - Labs Labs: 12/31/17 04:30 12/31/17 14:40 PT 13.5 SECONDS (9.4-12.5) H 12/31/17 04:30 INR 1.17 12/31/17 04:30 APTT 36.0 Seconds (25.1-36.5) 12/31/17 04:30 - Constitutional Appears: Non-toxic, No Acute Distress - Head Exam Head Exam: ATRAUMATIC, NORMAL INSPECTION - Eye Exam Eye Exam: EOMI, Normal appearance, PERRL - ENT Exam ENT Exam: Mucous Membranes Moist, Normal Oropharynx - Respiratory Exam Respiratory Exam: Decreased Breath Sounds, NORMAL BREATHING PATTERN - Cardiovascular Exam Cardiovascular Exam: REGULAR RHYTHM, +S1, +S2 - GI/Abdominal Exam GI & Abdominal Exam: Soft, Normal Bowel Sounds. absent: Tenderness - Extremities Exam Extremities Exam: Full ROM, Normal Capillary Refill, Normal Inspection - Neurological Exam Neurological Exam: Alert, Awake - Skin Skin Exam: Dry, Intact, Warm Assessment and Plan - Assessment and Plan (Free Text) Assessment: 42F with PMHx of developmental delay reported to have absence seizure and B/L LE weakness prior to admission; was found to have altered mental status, significant hypotension, bradycardia, hypothermia, liver failure, and paroxysmal atrial fibrillation; admitted to ICU for further workup and management. Plan: AMS -Differential includes Post-ictal state vs. septic encephalopathy vs. hepatic encephalopathy vs. ACS vs. intoxication, difficult to quantify due to patient's mental status; likely 2/2 severe sepsis -Head CT 12/26: no acute intracranial abnormality, mild anterior scalp and periorbital edema -CT Chest/abd/pelvis 12/25: anasarca, edema of mesenteric fat and ascites, L- sided rib fxs with atelectasis or PNA in L lower lobe; f/u repeat Abd/pelvis CT today -CXR 12/28: interval development of L perihilar airspace disease which may represent pulmonary edema or PNA, small pleural effusions -Repeat CXR 12/30: mildly decreased opacity of diffuse L-sided infiltrate, small b/l pleural effusion -F/u EEG -Prolactin elevated 29.2, Ammonia mildly elevated 37 -4 serial troponins neg -U/a without signs of UTI -UDS and Acetaminophen levels neg -HIV neg -Blood cx 1/2 pos for gram-neg rods on 12/25; repeat blood cxs 2/2 neg x 48 hrs -Urine cx neg, MRSA screen neg -Merrem d/c'd as per GI for elevated LFTs, c/w Zosyn 3.375 g IVPB q 6 h day#1 -C/w Keppra 500 mg IV bid -ID, Neuro, Cardio and GI consulted, recs appreciated -NGT removed, on pureed diet, consider Peg/G-tube but need to obtain consent from POA; TPN as per ICU if pt's mother is unable to consent to procedure -Palliative consulted, recs appreciated Acute liver failure - improving since admission -CT Chest/abd/pelvis findings as described above -Abd U/s 12/28: atrophied liver, diffuse increased echogenicity in liver may reflect hepatic steatosis however parenchymal infectious/inflammatory etiologies cannot be excluded; b/l renal atrophy -LFts trending down today -Hepatitis and HIV work-up neg -Acetaminophen levels neg -GI consulted, recs appreciated -Pending anti-mitochondrial Ab Hypotension - resolved Off pressors, BP 141/109 this am, continue to monitor vitals Central line removed by ICU Bradycardia - resolved -HR 90s-100s this am -Off dopamine drip -Cont to monitor in ICU -Cardio following, recs appreciated Fx L Ribs 7-9 CT chest/abd/pelvis findings as listed above Ribs XR: fxs in L 7th and 8th ribs Continue to monitor Microcytic normochromic anemia H/H today 11.6/35.8 No need for transfusion at this time; s/p 2 units PRBCs and FFP since admission Iron 55, TIBC 174, normal % sat, low transferrin, normal ferritin Continue to monitor GI/DVT ppx: Protonix; Heparin held due to low platelets Pt seen, examined with, and plan discussed with Dr. Oneal, attending. Donato Basilio DO PGY-1, Signs Cleaner Pager #[phone]
--- NOTE | 2017-12-31 15:15 | PN ---
Copied To: Bk Newton MD Attending MD: Bk Newton MD DATE: 12/31/2017 SUBJECTIVE: The patient is off dopamine. No reports of bradycardia. She is lethargic, has very poor oral intake. PHYSICAL EXAMINATION: VITAL SIGNS: Blood pressure 136/93, heart rate 120, temperature 97.8. HEENT: Significant temporal muscle wasting. CHEST: Diminished breath sounds bilaterally. HEART: S1 and S2 regular. EXTREMITIES: Significant muscle wasting. LABORATORY DATA: Hemoglobin and hematocrit 11.6 and 35.8, white count 11.6, platelet count 48,000. SMA-7 today's is within normal limits except for chloride 112 and BUN of 0.5. AST and ALT are 465 and 763 respectively. Alkaline phosphatase is 866. Today's chest x-ray revealed mild cardiomegaly with diffuse left lung infiltrate. Abdomen and pelvis CT scan with IV contrast only revealed moderate-sized pleural effusion with bibasilar consolidation, ascites, mesenteric edema and anasarca. No evidence of obstruction. ASSESSMENT: 1. Improved sinus bradycardia and improved hypertension. 2. Malnutrition. 3. Thrombocytopenia. 4. Consider bilateral pneumonia. 5. Gram-negative bacteremia. RECOMMENDATIONS: Continue current Neutra-Phos one packet t.i.d., Zosyn 3.375 intravenously every 6 hours and intravenous potassium chloride replacement. No further cardiac workup is indicated at this time. Bk Newton MD
[2017-12-31] MEDS ORDERED: Levalbuterol 1.25 MG/3 ML Inhal Soln UD IH STA (18:28)
--- NOTE | 2017-12-31 18:49 | RAD ---
Date of service: 12/31/2017 HISTORY: wheezing, tachycardia COMPARISON: Chest radiograph dated 12/30/2017 FINDINGS: LUNGS: Pulmonary vascular congestion. PLEURA: Increase in size of bilateral layering pleural effusions. No appreciable pneumothorax. CARDIOVASCULAR: Cardiomediastinal silhouette difficult to evaluate secondary to adjacent, obscuring lung pathology. OSSEOUS STRUCTURES: Unchanged. VISUALIZED UPPER ABDOMEN: Normal. OTHER FINDINGS: Removal of right internal jugular access central venous catheter. IMPRESSION: Increase in size of bilateral layering pleural effusions. Removal of right internal jugular access central venous catheter.
[2017-12-31] MEDS ORDERED: Albumin Human 25% (12.5 gm/50 ml) IV ONE ×2 (21:51)
--- NOTE | 2018-01-01 00:18 | CP.PCM.PCO ---
Additional Comments - Additional Comments Additional Comments: CT chest ordered as patient is tachypnic RR in in mid 30's, anasarca noticed, patient is arousable, but not communicative. Patient was on lasix for anasarca and effusion, albumin 12.5 g added once. Chest exam increased RR, b/l wheezing and rales, reduced in both basis CVS regular borderline tachycardia PA soft, distended Ext edematous CT reviewed by me b/l effusion, anasarca noticed but also has multilobar infiltrated b/l lower lobes consolidation, rul consolidation. Assessment CT and lung exam findings DD of aspiration, ards, multilobar infiltrate, multilobar collapse with effusion Plan NPO Swallow eval Add doxycycline Hold transfer to tele, stay in ICU, d/w nursing See orders for detail.
[2018-01-01] MEDS: Piperacillin/Tazobact 3.375 gm 100 ML IVPB SCH ×3 (00:43→17:09)
[2018-01-01] MEDS ORDERED: Etomidate 20 mg/10ml Inj IV ONE (03:34)
--- NOTE | 2018-01-01 04:44 | PCM.PROC ---
Procedures Attestation:: I certify that I have explained the specified Operation(s) or Procedure(s), risks, benefits and reasonable alternatives to the Patient and/or other person responsible. The opportunity was given to ask questions and all questions answered - Intubation Time Out Performed: Yes Sedative: Etomidate Laryngoscope: Matthieu (4) ET Tube Size: 7.0 ET Tube Uncuffed: No ET Tube Secured at Depth: 21 ET Tube Secured Locarion: Lips ET Tube Placement Confirmation: Visualized Passing Through Cords, Breath Sounds Equal Bilaterally, No Breath Sounds Over Epigastrum, Confirmation w/Capnometry Patient Tolerated Procedure: Well Additional comments: Patient is non communicative, tachypnic on NC and NRB in mid 40's, CT chest reviewed earlier multilobar consolidation, at time of intubation, regurgitation of gi contents noticed which was suctioned out both during and post intubation. Clinically patient was aspirating gi contents with multilobar infiltrate, and resp failure. D/w nursing patients mother is NOK, and doesn't have phone to reach her.
[2018-01-01] MEDS: Norepinephrine 8 MG in Sodium Chloride 0.9% 500 ML IV PRN (06:27)
[2018-01-01] MEDS: Potassium Chloride 40 MEQ in Dextrose 5%/0.45% NS 1,000 ML IV SCH (06:28)
[2018-01-01 06:45] LABS: GRAN # 3.14 (1.4-6.5); GRAN % 89.9 % (50.0-68.0); HEMOGLOBIN 11.8 g/dL (12.0-16.0); LYMPH # 0.3 (1.2-3.4); LYMPH % 9.5 % (22.0-35.0); MEAN CELL VOLUME 84.1 fl (80.0-105.0); MEAN CORPUSCULAR HEMOGLOBIN 27.6 pg (25.0-35.0); MEAN CORPUSCULAR HGB CONC 32.8 g/dl (31.0-37.0); MONO % 0.6 % (1.0-6.0); RBC 4.28 10^6/uL (3.5-6.1); RED CELL DISTRIBUTION WIDTH 15.6 % (11.5-14.5); WHITE BLOOD COUNT 3.5 10^3/ul (4.5-11.0)
[2018-01-01 06:49] LABS: PLATELET COUNT 49 10^3/uL (120.0-450.0)
[2018-01-01 06:50] LABS: PLATELET ESTIMATE LOW (NORMAL)
[2018-01-01 07:02] LABS: INR 1.22; PARTIAL THROMBOPLASTIN TIME 33.8 Seconds (25.1-36.5); PROTHROMBIN TIME 14.1 SECONDS (9.4-12.5)
[2018-01-01 07:19] LABS: ALB/GLOB RATIO 0.9 (1.1-1.8); ALBUMIN 2.2 g/dL (3.0-4.8); ALT/SGPT 480 U/L (7-56); AST/SGOT 152 U/L (14-36); BLOOD UREA NITROGEN 13 mg/dL (7-21); CALCIUM 7.8 mg/dL (8.4-10.5); GFR NON-AFRICAN AMERICAN > 60
[2018-01-01 07:40] LABS: ARTERIAL BLOOD GAS HCO3 31.1 mmol/L (21-28); ARTERIAL BLOOD GAS O2 SAT 64.8 % (95-98); ARTERIAL BLOOD GAS PCO2 49 mm/Hg (35-45); ARTERIAL BLOOD GAS PH 7.41 (7.35-7.45); ARTERIAL BLOOD GAS TCO2 32.6 mmol.L (22-28)
--- NOTE | 2018-01-01 08:12 | RAD ---
Date of service: 01/01/2018 HISTORY: post intubation COMPARISON: Portable chest 12/22/2017. FINDINGS: LUNGS: Endotracheal tube is now in position with its tip terminating 2 cm above the rm. Nasogastric tube is been placed as well, coiled at the left upper quadrant abdomen. Midline left PICC unchanged in position. Heterogeneous infiltrates seen at mid right lung with left base silhouetted suggesting additional airspace disease. Limited left pleural effusion, borderline on the right. No pneumothorax bilaterally. PLEURA: As above. CARDIOVASCULAR: Cardiac silhouette appears prominent, possibly for magnification. No pulmonary vascular congestion. OSSEOUS STRUCTURES: No significant abnormalities. VISUALIZED UPPER ABDOMEN: Normal. OTHER FINDINGS: None. IMPRESSION: Interval intubation and nasogastric tube placement as discussed above. Improved aeration bilaterally with some residual infiltrate at the mid right lung zone remaining and likely airspace disease the left base. Small pleural effusion is noted with borderline right pleural effusion question.
--- NOTE | 2018-01-01 08:46 | CT ---
Date of service: 12/31/2017 PROCEDURE: CT Chest without contrast HISTORY: b/l effusions COMPARISON: None available. TECHNIQUE: Contiguous axial images were obtained through the chest without intravenous contrast enhancement. Sagittal and coronal reconstructions were performed. Radiation dose (DLP): 123 mGy-cm. This CT exam was performed using one or more of the following dose reduction techniques: Automated exposure control, adjustment of the mA and/or kV according to patient size, and/or use of iterative reconstruction technique. FINDINGS: LUNGS: There is bilateral upper and lower lobe consolidation with air bronchograms consistent with pneumonia. Moderate size bilateral pleural effusions are seen. MEDIASTINUM: Unremarkable thoracic aorta. No aneurysm. Normal sized heart. Main pulmonary artery unremarkable. No vascular congestion. No lymphadenopathy. PLEURA: No pleural fluid. No pneumothorax. BONES: No fracture. No destructive lesion. UPPER ABDOMEN: Ascites and anasarca OTHER FINDINGS: None. IMPRESSION: There is bilateral upper and lower lobe consolidation with air bronchograms consistent with pneumonia. Moderate size bilateral pleural effusions are seen.
[2018-01-01] MEDS ORDERED: Potassium Phosphate 15 MMOLE in Sodium Chloride 0.9% 250 ML IVPB ONE (08:56)
[2018-01-01] MEDS ORDERED: Magnesium Sulfate 1 gm in D5W 1 GM/100 ML BAG IVPB ONE (08:59)
[2018-01-01] MEDS: levETIRAcetam 500mg IVPB 500 MG/100 ML BAG IV SCH ×2 (10:00→22:38)
[2018-01-01 10:41] LABS: CERULOPLASMIN 24 mg/dL (18-53)
[2018-01-01 11:22] LABS: ARTERIAL BLOOD GAS HCO3 25.9 mmol/L (21-28); ARTERIAL BLOOD GAS O2 CAPACITY 17.8 mL/dl (16-24); ARTERIAL BLOOD GAS O2 CONTENT 12.9 ML/dl (15-23); ARTERIAL BLOOD GAS O2 SAT 72.5 % (95-98); ARTERIAL BLOOD GAS PCO2 39 mm/Hg (35-45); ARTERIAL BLOOD GAS PH 7.43 (7.35-7.45); ARTERIAL BLOOD GAS TCO2 27.1 mmol.L (22-28)
--- NOTE | 2018-01-01 11:40 | PN ---
Copied To: Silver Cazares MD Attending MD: Silver Cazares MD DATE: 01/01/2018 SUBJECTIVE: The patient is seen and examined at bedside. Overnight she developed respiratory distress and hypoxemic respiratory failure, requiring intubation. The patient is on PRVC right now. The setting as follows; 300/25/10/60% on that setting, oxygen saturation 100%, respiratory rate 25. The patient is not overbreathing on vent. The patient is on fentanyl 40 mcg/hour. PHYSICAL EXAMINATION: VITAL SIGNS: Blood pressure 101/77, heart rate 89 and temperature 97.7 on warming blanket. ENT: Head and neck atraumatic. LUNGS: Few crackles bilaterally. HEART: Regular rate and rhythm. S1, S2 distant. ABDOMEN: Soft, nontender and nondistended. MUSCULOSKELETAL: No C/C/E. NEUROLOGIC: The patient is sedated. SKIN: Moist. PSYCHIATRIC: The patient is sedated. LABORATORY DATA: Sodium 145, potassium 4, chloride 111, carbon dioxide 28, BUN 13, creatinine 0.5, glucose 163, phosphorus 1.6, AST 152, ALT 480, total bilirubin 0.8. WBC 3.5, hemoglobin 11.8, platelet count 49. MEDICATIONS: D5 half-normal saline with potassium at 100 mL/hour, dopamine is off, Xopenex p.r.n., Keppra, Protonix, Zosyn. Chest x-ray showed bilateral infiltrates, right more than left. All foreign objects including endotracheal tube, nasogastric tube and PICC line are in correct position. ASSESSMENT AND PLAN: This is a 42-year-old lady who initially presented with HCAP complicated with gram-negative bacteremia. Fairly extensive search for alternative source of GNR bacteremia didnt bring any fruits She did progress to acute respiratory distress syndrome, hypoxemic respiratory failure, requiring intubation. At present time, the patient is on Zosyn. Speciation of gram-negative rods in blood is pending. Sputum culture will be sent as well. Procalcitonin will be ordered as well. Neurologic: The patient currently is sedated with fentanyl and benzodiazepines p.r.n. She appears to be comfortable. Pulmonary: The patient has what appears to be acute respiratory distress syndrome due to progression of healthcare-associated pneumonia and hypoxemic respiratory failure. The patient was intubated last night. Chest x-ray and CAT scan showed progression of bilateral infiltrates, right more than left. At present time, we will proceed with protective lung ventilation strategy, strict tidal volume 4-8 mL per predicted body weight and plateau pressure less than 30 cm of water. We will continue with higher PEEP/FiO2 ratio, conservative oxygen and fluid management (If BP remains stable). Head of bed elevated at >35 degrees. Oral hygiene. Once the patient stabilized, we will proceed with daily weaning trials and sedation vacations. A-line will be placed. At present time, we went down on FiO2 from 100% to 60%. Infectious Disease: The patient has progression of healthcare-associated pneumonia. The patient is on Zosyn. Speciation of gram-negative rods and blood is pending. Sputum culture will be sent as well. Continue Zosyn, preferably prolonged infusion. Infectious Disease service is following the patient as well. Gastrointestinal: We will put NG tube and start feeding the patient while she is hemodynamically stable. Gastrointestinal prophylaxis. Endocrinology: We will maintain blood glucose within 140-180 range according to NICE-SUGAR trial. Renal: Patient's creatinine slightly low which may signify critical illness. Nevertheless, she is making urine. We will maintain mean arterial pressure more than 65, avoid hyperchloremia and nephrotoxic medication but not at expense of treating underlying disease. Hematology: The patient has pancytopenia most likely related to severe sepsis/critical illness that the patient has. Nevertheless, her platelet count is somewhat improved and hemoglobin level is stable. Threshold for PRBC transfusion will be held between 7 and 9. We will hold heparin; however, continue with sequential compression devices to prevent deep venous thromboses. We will touch base with next of kin about advanced directives. Addendum: Attempts at A-line placement were unsuccessful. Blood gas is unclear whether venous or arterial-->will have to go up on fi02 again. Spoke with patient's mother-->continue full support ccm time 40 min Silver Cazares MD JERMAINE
--- NOTE | 2018-01-01 13:13 | PN ---
Copied To: Abdiaziz Sousa MD Attending MD: Abdiaziz Sousa MD DATE: 01/01/2018 SUBJECTIVE: The patient is in bed, in no acute distress, intubated on a ventilator. The patient is overall in poor condition and chronically ill, debilitated. OBJECTIVE: VITAL SIGNS: On exam, temperature is 97, blood pressure is 108/80, respiratory rate on a vent, heart rate of 78. HEENT: Unremarkable. NECK: Supple. LUNGS: Have decreased breath sounds. HEART: Normal S1, S2. ABDOMEN: Soft. DATA: Laboratory examination reveals a white count of 3.5, hemoglobin 11, platelets of 49. BUN of 13, creatinine of 0.5. LFTs are elevated, appeared to be improving. Urinalysis is noted. The patient's HIV and hepatitis profile is negative. The patient's repeat blood cultures are negative. Initial blood cultures are gram-negative nichole. ASSESSMENT AND PLAN: This is a 42-year-old female who is chronically ill, in debilitated state, cachectic with a body mass index of only 11, mentally disabled, delayed now with severe sepsis and respiratory failure, intubated on a ventilator with gram-negative nichole bacteremia, repeat culture is negative, GI is the source, biliary is the source. Dr. Rizo's progress note is reviewed. Currently now on Zosyn. An MRCP and HIDA scan were discontinued by Dr. Rizo as ordered by me with a negative urinalysis and negative urine culture with elevated bilirubin that was elevated right from the admission before meropenem and elevated LFTs and elevated alk phos out of proportion and the obvious gram-negative nichole in the blood, biliary source is obvious source for the patient's gram-negative bacteremia, gram-negative rods in the blood is never a contaminate and must not be dismissed as a contaminant. We will continue Zosyn. Dr. Gabriel Mason, has started the patient on doxycycline this morning, I will discontinue that in phase of LFT elevations. No real need for doxycycline coverage in patients whose nasal MRSA is not detected on 12/25/2017. We will continue the Zosyn. Overall prognosis is quite poor at this point. The patient's creatinine is 0.8. We will order a repeat procalcitonin. Unfortunately, the prognosis is poor and we will also order carter cultures. Abdiaziz Sousa MD
--- NOTE | 2018-01-01 13:21 | PN ---
Copied To: Giancarlo Rizo MD Attending MD: Giancarlo Rizo MD DATE: 01/01/2018 SUBJECTIVE: The patient required intubation last night due to respiratory failure. The patient became short of breath. There is a question as to whether the patient regurgitated and aspirated. She is currently not responding. PHYSICAL EXAMINATION: VITAL SIGNS: Reveal temperature of 97.2, blood pressure 108/80, heart rate of 85. HEENT: Reveal sclerae to be white. She has an endotracheal tube in her mouth. NECK: Supple. CHEST: Reveal decreased breath sounds bilaterally. HEART: Reveals a regular rate and rhythm. ABDOMEN: Softly distended with ascites. EXTREMITIES: Show muscle wasting and no pedal edema. LABORATORY DATA: Reveal white blood cell count 3.5, hemoglobin 11.8, platelet count 49,000. Electrolytes are normal. AST down to 152, ALT 480, alkaline phosphatase of 642. IMPRESSION: 1. Respiratory failure secondary to multilobar pneumonia and possible aspiration. 2. Mental retardation. 3. Elevated liver enzymes most likely secondary to shock liver and passive congestion. Her liver enzymes are trending downward towards normal. 4. Probable cirrhosis with ascites and thrombocytopenia. Etiology of the cirrhosis is unclear. Her hepatitis serology is negative. Her antimitochondrial antibody is negative. RECOMMENDATIONS: 1. Supportive care. Her long-term prognosis is extremely poor. 3. Palliative care nurse is unable to reach the patient's mother. This has been tried for several days. Giancarlo Rizo MD
--- NOTE | 2018-01-01 14:30 | CP.PCM.PN ---
<Donato aBsilio - Last Filed: 01/01/18 14:22> Subjective - Date & Time of Evaluation Date of Evaluation: 01/01/18 Time of Evaluation: 10:00 - Subjective Subjective: Donato Basilio DO PGY-1, [employer] Progress Note Pt seen and examined at bedside. Per overnight report, pt had worsening respiratory distress, anasarca demonstrated on CT chest, and pt was thus intubated by ICU team. Pt currently on levophed and fentanyl drips. Attempts made by palliative care and social work to reach out to pt's mother. Objective - Vital Signs/Intake and Output Vital Signs (last 24 hours): Temp Pulse Resp BP Pulse Ox 97.2 F L 85 53 H 97/76 L 97 01/01/18 08:00 01/01/18 08:00 01/01/18 01:16 01/01/18 12:55 01/01/18 08:00 Intake and Output: 01/01/18 01/01/18 06:59 18:59 Intake Total 1876 Output Total 1700 Balance 176 - Medications Medications: Current Medications Hydrocortisone Sodium Succinate (Solu-Cortef) 50 mg IVP Q8 [facility] Stop: 01/03/18 06:01 Norepinephrine Bitartrate 8 mg (/ Sodium Chloride) 508 mls @ 15.24 mls/hr IV .Q24H PRN; Protocol; 4 MCG/MIN PRN Reason: TITRATE PER MD ORDER Last Admin: 01/01/18 06:27 Dose: 2 mcg/min, 7.62 mls/hr Levetiracetam (Keppra 500mg Ivpb) 500 mg in 100 mls @ 460 mls/hr IV Q12 [facility] Last Admin: 01/01/18 10:00 Dose: 460 mls/hr Dopamine HCl/Dextrose (Dopamine 400mg/250ml D5w) 400 mg in 250 mls @ 5.188 mls/ hr IV .Q24H PRN; Protocol; 5 MCG/KG/MIN PRN Reason: TITRATE PER MD ORDER Last Titration: 12/30/17 13:32 Dose: 0 mcg/kg/min, 0 mls/hr Potassium Chloride 40 meq/ (Dextrose/Sodium Chloride) 1,020 mls @ 100 mls/hr IV .[id number] [facility] Last Admin: 01/01/18 06:28 Dose: 100 mls/hr Piperacillin Sod/Tazobactam Sod (Zosyn 3.375 In Ns 100ml) 100 mls @ 200 mls/hr IVPB Q6 [facility] PRN Reason: Protocol Stop: 01/08/18 19:56 Last Admin: 01/01/18 06:30 Dose: 200 mls/hr Fentanyl Citrate (Fentanyl Citrate/Sodium Chloride 1 Mg/100 Ml) 1,000 mcg in 100 mls @ 2 mls/hr IV .Q24H PRN; Protocol; 20 MCG/HR PRN Reason: TITRATE PER MD ORDER Potassium Phosphate 15 mmole/ (Sodium Chloride) 255 mls @ 42.5 mls/hr IVPB ONCE ONE Stop: 01/01/18 14:55 Last Admin: 01/01/18 10:21 Dose: 42.5 mls/hr Vasopressin 20 units/ Sodium (Chloride) 101 mls @ 9.09 mls/hr IV .Q11H7M NASH; 0.03 U/MIN PRN Reason: Protocol Last Admin: 01/01/18 12:55 Dose: 9.09 mls/hr Levalbuterol HCl (Xopenex) 1.25 mg IH [id number] PRN PRN Reason: Shortness of Breath Pantoprazole Sodium (Protonix Inj) 40 mg IVP DAILY [facility] Last Admin: 01/01/18 10:21 Dose: 40 mg Potassium Phos/Sodium Phos (Neutra-Phos) 1 pkt PO TID [facility] Last Admin: 12/31/17 18:50 Dose: 1 pkt - Labs Labs: 01/01/18 05:45 01/01/18 05:45 PT 14.1 SECONDS (9.4-12.5) H 01/01/18 05:45 INR 1.22 01/01/18 05:45 APTT 33.8 Seconds (25.1-36.5) 01/01/18 05:45 - Constitutional Appears: No Acute Distress, Chronically Ill - Head Exam Head Exam: ATRAUMATIC, NORMAL INSPECTION - Eye Exam Eye Exam: Normal appearance, PERRL - ENT Exam ENT Exam: Mucous Membranes Moist - Respiratory Exam Respiratory Exam: NORMAL BREATHING PATTERN Additional comments: Crackles and coarse breath sounds auscultated diffusely in all lung hilliard - Cardiovascular Exam Cardiovascular Exam: REGULAR RHYTHM, +S1, +S2 - GI/Abdominal Exam GI & Abdominal Exam: Soft, Normal Bowel Sounds. absent: Tenderness - Extremities Exam Extremities Exam: Normal Capillary Refill, Normal Inspection - Neurological Exam Additional comments: Pt intubated and sedated - Skin Skin Exam: Dry, Intact, Warm Assessment and Plan - Assessment and Plan (Free Text) Assessment: 42F with PMHx of developmental delay reported to have absence seizure and B/L LE weakness prior to admission; was found to have altered mental status, significant hypotension, bradycardia, hypothermia, liver failure, and paroxysmal atrial fibrillation; admitted to ICU for further workup and management. Pt had worsening respiratory distress overnight in ICU requiring intubation, prognosis poor. Plan: Respiratory distress -Developed episode overnight requiring intubation by ICU team -Pt on PRVC, setting 300/25/10/60%, O2 sat 100%, RR 25, continue to monitor -Fentanyl 40 mcg/hr -Likely acute respiratory distress due to progression of HCAP and hypoxemic respiratory failure -CXR/CT chest: progression of b/l infiltrates, R more than L AMS -Differential includes Post-ictal state vs. septic encephalopathy vs. hepatic encephalopathy vs. ACS vs. intoxication, difficult to quantify due to patient's mental status; likely 2/2 severe sepsis -Head CT 12/26: no acute intracranial abnormality, mild anterior scalp and periorbital edema -CT Chest/abd/pelvis: anasarca, edema of mesenteric fat and ascites, L-sided rib fxs with atelectasis or PNA in L lower lobe -CXR 12/28: interval development of L perihilar airspace disease which may represent pulmonary edema or PNA, small pleural effusions -Repeat CXR 12/30: mildly decreased opacity of diffuse L-sided infiltrate, small b/l pleural effusion -Repeat CXR/CT chest overnight as described above -F/u EEG -Prolactin elevated 29.2, Ammonia mildly elevated 37 -4 serial troponins neg -U/a without signs of UTI -UDS and Acetaminophen levels neg -HIV neg -Blood cx 1/2 pos for gram-neg rods on 12/25; repeat blood cxs 2/2 neg x 72 hrs -F/u carter cultures -Urine cx neg, MRSA screen neg -Merrem d/c'd as per GI for elevated LFTs, c/w Zosyn 3.375 g IVPB q 6 h day#2 -Doxycycline d/'d as per ID -C/w Keppra 500 mg IV bid -ID, Neuro, Cardio and GI consulted, recs appreciated -NGT replaced, NPO currently, consider Peg/G-tube but need to obtain consent from POA; TPN as per ICU if pt's mother is unable to consent to procedure -Palliative consulted, has reached out to pt's mother several times without response regarding goals of care, recs appreciated Acute liver failure - improving since admission -CT Chest/abd/pelvis findings as described above -Abd U/s 12/28: atrophied liver, diffuse increased echogenicity in liver may reflect hepatic steatosis however parenchymal infectious/inflammatory etiologies cannot be excluded; b/l renal atrophy -LFts trending down today -Hepatitis and HIV work-up neg -Acetaminophen levels neg -GI consulted, recs appreciated -Anti-mitochondrial Ab neg Hypotension Continue to monitor On levophed at 2 mcg/min Pt tachycardic overnight, continue to monitor -Cardio following, recs appreciated Fx L Ribs 7-9 CT chest/abd/pelvis findings as listed above Ribs XR: fxs in L 7th and 8th ribs Continue to monitor Microcytic normochromic anemia H/H today 11.8/36 No need for transfusion at this time; s/p 2 units PRBCs and FFP since admission Iron 55, TIBC 174, normal % sat, low transferrin, normal ferritin Continue to monitor GI/DVT ppx: Protonix; Heparin held due to low platelets, SCDs Pt seen, examined with, and plan discussed with Dr. Ortiz, attending. Donato Basilio DO PGY-1, [employer] Pager #[phone] <Dirk Ortiz - Last Filed: 01/01/18 16:03> Objective - Vital Signs/Intake and Output Vital Signs (last 24 hours): Temp Pulse Resp BP Pulse Ox 98.6 F 84 53 H 102/53 L 97 01/01/18 15:58 01/01/18 15:58 01/01/18 01:16 01/01/18 15:30 01/01/18 08:00 Intake and Output: 01/01/18 01/01/18 06:59 18:59 Intake Total 1876 Output Total 1700 Balance 176 - Medications Medications: Current Medications Hydrocortisone Sodium Succinate (Solu-Cortef) 50 mg IVP Q8 [facility] Stop: 01/03/18 06:01 Last Admin: 01/01/18 15:26 Dose: 50 mg Norepinephrine Bitartrate 8 mg (/ Sodium Chloride) 508 mls @ 15.24 mls/hr IV .Q24H PRN; Protocol; 4 MCG/MIN PRN Reason: TITRATE PER MD ORDER Last Admin: 01/01/18 06:27 Dose: 2 mcg/min, 7.62 mls/hr Levetiracetam (Keppra 500mg Ivpb) 500 mg in 100 mls @ 460 mls/hr IV Q12 [facility] Last Admin: 01/01/18 10:00 Dose: 460 mls/hr Dopamine HCl/Dextrose (Dopamine 400mg/250ml D5w) 400 mg in 250 mls @ 5.188 mls/ hr IV .Q24H PRN; Protocol; 5 MCG/KG/MIN PRN Reason: TITRATE PER MD ORDER Last Titration: 12/30/17 13:32 Dose: 0 mcg/kg/min, 0 mls/hr Potassium Chloride 40 meq/ (Dextrose/Sodium Chloride) 1,020 mls @ 100 mls/hr IV .[id number] [facility] Last Admin: 01/01/18 06:28 Dose: 100 mls/hr Piperacillin Sod/Tazobactam Sod (Zosyn 3.375 In Ns 100ml) 100 mls @ 200 mls/hr IVPB Q6 [facility] PRN Reason: Protocol Stop: 01/08/18 19:56 Last Admin: 01/01/18 06:30 Dose: 200 mls/hr Fentanyl Citrate (Fentanyl Citrate/Sodium Chloride 1 Mg/100 Ml) 1,000 mcg in 100 mls @ 2 mls/hr IV .Q24H PRN; Protocol; 20 MCG/HR PRN Reason: TITRATE PER MD ORDER Vasopressin 20 units/ Sodium (Chloride) 101 mls @ 9.09 mls/hr IV .Q11H7M NASH; 0.03 U/MIN PRN Reason: Protocol Last Admin: 01/01/18 12:55 Dose: 9.09 mls/hr Levalbuterol HCl (Xopenex) 1.25 mg IH [id number] PRN PRN Reason: Shortness of Breath Pantoprazole Sodium (Protonix Inj) 40 mg IVP DAILY [facility] Last Admin: 01/01/18 10:21 Dose: 40 mg Potassium Phos/Sodium Phos (Neutra-Phos) 1 pkt PO TID [facility] Last Admin: 12/31/17 18:50 Dose: 1 pkt - Labs Labs: 01/01/18 05:45 01/01/18 05:45 PT 14.1 SECONDS (9.4-12.5) H 01/01/18 05:45 INR 1.22 01/01/18 05:45 APTT 33.8 Seconds (25.1-36.5) 01/01/18 05:45 Attending/Attestation - Attestation I have personally seen and examined this patient.: Yes I have fully participated in the care of the patient.: Yes I have reviewed all pertinent clinical information, including history, physical exam and plan: Yes
--- NOTE | 2018-01-01 15:16 | PCM.ETH ---
Ethic Consultation - Ethical Consult Current (terminal) illness(es): severe sepsis, respiratory failure, malnutrition, hypotension, hypothermia Current resuscitation status: Full Code Living will status: None Advance directive status: None POLST status: None Bioethical issue being addressed: The patient has severe sepsis, respiratory failure,hypotensioin, elevated liver enzymes, ascites, thrombocytopnenia, severe malnutrition Intubated and on vasopressor support. Mother coming to hospital sporadically during evening hours. Mother will not provide phone number/address for emergent contact. Police have been sent to address listed in chart but unable to find mother at this location (apartment appeared to be vacant). Mother called and spoke with clinical marketing manager today,stated she would come to the hospital within the next two hours.Mother did not come with in specified time frame Concerns: 1. Unable to locate/contact patient's mother. Mother comes to hospital sporadically. 2. Is the mother capable of making health care decisions? 3. Should emergent guardianship be obtained? 4. Patient is critically ill with high morality risk, if unable to reach mother , when should consideration of quality of life /futility of care be determined Patients current health status: The patient with medical history of mental retardation brought to ED by EMS, mother in accompaniment. Mother stated that patient appeared to be having a seizure which is why she called EMS. The patient was found to be anorexic/ cachectic and severely malnourished. Also found to have fractures of left 7th and 8th ribs. Work up revealed severe sepsis, transamintis> possible shock liver , bilateral upper and lower lobe consolidation, pneumonia. Moderate bilateral pleural effusions. Intubated on vasopressor support Bioethics webmethods consultant recommendation(s): > Will continue to try to reach mother in order to update her of patient medical condition and for discussion regarding goals of care. >Will contact corporate probate paralegal for guidance regarding concerns about mother's absence as well as whether to seek emergency guardianship > If still unable to contact mother, will continue current supportive care for the next 3 days, if no improvement two physicians will re-evaluate and determine prognosis, quality of life and futility of care
--- NOTE | 2018-01-01 17:14 | CP.PCM.PN ---
Subjective - Date & Time of Evaluation Date of Evaluation: 01/01/18 Time of Evaluation: 14:00 - Subjective Subjective: intubated, sedated, hypotensive Objective - Vital Signs/Intake and Output Vital Signs (last 24 hours): Temp Pulse Resp BP Pulse Ox 98.6 F 84 53 H 102/53 L 97 01/01/18 15:58 01/01/18 15:58 01/01/18 01:16 01/01/18 15:30 01/01/18 08:00 Intake and Output: 01/01/18 01/01/18 06:59 18:59 Intake Total 1876 Output Total 1700 Balance 176 - Medications Medications: Current Medications Hydrocortisone Sodium Succinate (Solu-Cortef) 50 mg IVP Q8 [facility] Stop: 01/03/18 06:01 Last Admin: 01/01/18 15:26 Dose: 50 mg Norepinephrine Bitartrate 8 mg (/ Sodium Chloride) 508 mls @ 15.24 mls/hr IV .Q24H PRN; Protocol; 4 MCG/MIN PRN Reason: TITRATE PER MD ORDER Last Admin: 01/01/18 06:27 Dose: 2 mcg/min, 7.62 mls/hr Levetiracetam (Keppra 500mg Ivpb) 500 mg in 100 mls @ 460 mls/hr IV Q12 [facility] Last Admin: 01/01/18 10:00 Dose: 460 mls/hr Dopamine HCl/Dextrose (Dopamine 400mg/250ml D5w) 400 mg in 250 mls @ 5.188 mls/ hr IV .Q24H PRN; Protocol; 5 MCG/KG/MIN PRN Reason: TITRATE PER MD ORDER Last Titration: 12/30/17 13:32 Dose: 0 mcg/kg/min, 0 mls/hr Potassium Chloride 40 meq/ (Dextrose/Sodium Chloride) 1,020 mls @ 100 mls/hr IV .[id number] [facility] Last Admin: 01/01/18 06:28 Dose: 100 mls/hr Piperacillin Sod/Tazobactam Sod (Zosyn 3.375 In Ns 100ml) 100 mls @ 200 mls/hr IVPB Q6 [facility] PRN Reason: Protocol Stop: 01/08/18 19:56 Last Admin: 01/01/18 06:30 Dose: 200 mls/hr Fentanyl Citrate (Fentanyl Citrate/Sodium Chloride 1 Mg/100 Ml) 1,000 mcg in 100 mls @ 2 mls/hr IV .Q24H PRN; Protocol; 20 MCG/HR PRN Reason: TITRATE PER MD ORDER Vasopressin 20 units/ Sodium (Chloride) 101 mls @ 9.09 mls/hr IV .Q11H7M [facility]; 0.03 U/MIN PRN Reason: Protocol Last Admin: 01/01/18 12:55 Dose: 9.09 mls/hr Levalbuterol HCl (Xopenex) 1.25 mg IH [id number] PRN PRN Reason: Shortness of Breath Pantoprazole Sodium (Protonix Inj) 40 mg IVP DAILY [facility] Last Admin: 01/01/18 10:21 Dose: 40 mg Potassium Phos/Sodium Phos (Neutra-Phos) 1 pkt PO TID [facility] Last Admin: 12/31/17 18:50 Dose: 1 pkt - Labs Labs: 01/01/18 05:45 01/01/18 05:45 PT 14.1 SECONDS (9.4-12.5) H 01/01/18 05:45 INR 1.22 01/01/18 05:45 APTT 33.8 Seconds (25.1-36.5) 01/01/18 05:45 - Constitutional Appears: Cachectic, Chronically Ill - Eye Exam Eye Exam: Normal appearance - ENT Exam ENT Exam: Mucous Membranes Moist - Respiratory Exam Respiratory Exam: Decreased Breath Sounds, Rhonchi - Cardiovascular Exam Cardiovascular Exam: REGULAR RHYTHM, +S1, +S2 - GI/Abdominal Exam GI & Abdominal Exam: Soft, Hypoactive Bowel Sounds - Extremities Exam Additional comments: contracted - Neurological Exam Neurological Exam: Altered - Skin Skin Exam: Dry, Pallor Assessment and Plan - Assessment and Plan (Free Text) Assessment: 42 year old female with history of mental retardation who is admitted with severe sepsis, respiratory failure, bilateral pneumonia, pleural effusions, hypotension, transaminitis,severe malnutrition. Mother came to hospital later in the day. Multidisciplinary team met with mother to update her of patient's condition, prognosis and to establish goals of care. Dr Cazares updated mother of patients medical situation, high mortality risk. All of the mothers questions were answered. Palliative services also spent time with mother, reinforced medical situation and importance of establishing goals of care. Mother does not seem to grasp gravity of situation. Burdens of aggressive CPR explained, especially ramification of these procedures in patients with comorbidities such as her daughters. Mother unable to make decision at this time. Psychosocial support provided. Spiritual support declined. Mother provided [employer] with phone number and address where she is staying. Mother stated she intended to stay through the night but then left a short time later saying she would likely return in the morning. Time spent with mother in goals of care and advance care planning discussion, 50 minutes Plan: Goals of care and advance care planning Continue current supportive treatment measures
[2018-01-01] MEDS ORDERED: Norepinephrine 8 MG in Dextrose 5% In Water 500 ML IV PRN (18:19)
[2018-01-01] MEDS ORDERED: Dextrose 50% SYRINGE Inj (50 ml) IVP ONE (18:19)
[2018-01-01] MEDS ORDERED: NOREPINEPHRINE BIT/0.9 % NACL 4 MG/250 ML BAG IV PRN (18:51)
[2018-01-01] MEDS ORDERED: Norepinephrine 8 MG in Sodium Chloride 0.9% 500 ML IV PRN (20:12)
--- NOTE | 2018-01-01 21:52 | CP.CCUPN ---
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 Patient unable to protect airway, and subsequently intubated. At time of intubation, regurgitation of GI contents were noted both during post intubation. This AM patient intubated and sedated w/ fentanyl drip; still arousable however. Did not appear to be in distress. 01/01/18 21:11 CCU Objective - Vital Signs / Intake & Output Intake and Output (Last 8hrs): Intake & Output 01/01/18 01/01/18 01/01/18 06:59 14:59 22:59 Intake Total 1876 Output Total 1700 450 Balance 176 -450 Intake: IV 1876 Left Upper arm 1200 Right Internal Jugular 500 Output: Urine 1700 450 Urethral (Jimenez) 1700 450 - Physical Exam Head: Positive for: Atraumatic, Normocephalic Pupils: Positive for: PERRL Extroacular Muscles: Positive for: EOMI Conjunctiva: Positive for: Normal Mouth: Positive for: Moist Mucous Membranes, Other (POOR DENTITION) Neck: Positive for: Normal Range of Motion Respiratory/Chest: Positive for: Clear to Auscultation, Good Air Exchange, Tachypneic, Other (contracted to left side ). Negative for: Respiratory Distress, Accessory Muscle Use, Wheezes, Decreased Breath Sounds, Rales, Retracting, Rhonchi, Tender to Palpation Cardiovascular: Positive for: Regular Rate and Rhythm, Normal S1, S2. Negative for: Murmurs Abdomen: Positive for: Other (Abdomen is scaphoid;). Negative for: Tenderness, Distention, Normal Bowel Sounds, Peritoneal Signs, Rebound, Guarding, McBurney' s Point Tender, Rovsing's Sign Present, Hernias, Feeding Tubes, Ostomy Tubes, Mass/Organomegaly, Scars Back: Positive for: Normal Inspection Upper Extremity: Positive for: Normal Inspection. Negative for: Cyanosis, Edema Lower Extremity: Positive for: Normal Inspection, NORMAL PULSES ( pulses strong and equal, bilateral and present). Negative for: Edema Neurological: Positive for: GCS=15, CN II-XII Intact, Speech Normal Skin: Positive for: Warm, Dry, Normal Color. Negative for: Rashes Psychiatric: Positive for: Alert, Lethargic - Medications Active Medications: Active Medications Generic Name Dose Route Start Last Admin Trade Name Freq PRN Reason Stop Dose Admin Hydrocortisone Sodium Succinate 50 mg 01/01/18 14:00 01/01/18 15:26 Solu-Cortef IVP 01/03/18 06:01 50 mg Q8 NASH Administration Levetiracetam 500 mg in 100 mls @ 460 mls/hr 12/27/17 07:57 01/01/18 10:00 Keppra 500mg Ivpb IV 460 mls/hr Q12 NASH Administration Potassium Chloride 40 meq/ 1,020 mls @ 100 mls/hr 12/27/17 21:15 01/01/18 06: 28 Dextrose/Sodium Chloride IV 100 mls/hr .[id number] NASH Administration Piperacillin Sod/Tazobactam Sod 100 mls @ 200 mls/hr 12/30/17 19:55 01/01/18 17:09 Zosyn 3.375 In Ns 100ml IVPB 01/08/18 19:56 200 mls/hr Q6 NASH Administration Protocol Fentanyl Citrate 1,000 mcg in 100 mls @ 2 mls/hr 01/01/18 05:31 Fentanyl Citrate/Sodium Chloride 1 Mg/100 Ml IV .Q24H PRN TITRATE PER MD ORDER Protocol 20 MCG/HR Vasopressin 20 units/ Sodium 101 mls @ 9.09 mls/hr 01/01/18 11:30 01/01/18 12 :55 Chloride IV 9.09 mls/hr .[id number] NASH Administration Protocol 0.03 U/MIN Norepinephrine Bitartrate 8 mg 508 mls @ 15.24 mls/hr 01/01/18 20:12 / Sodium Chloride IV .Q24H PRN TITRATE PER MD ORDER Protocol 4 MCG/MIN Insulin Human Regular 0 units 01/01/18 22:00 Humulin R High SC ACHS NASH Protocol Levalbuterol HCl 1.25 mg 12/31/17 18:28 Xopenex IH [id number] PRN Shortness of Breath Pantoprazole Sodium 40 mg 12/26/17 10:00 01/01/18 10:21 Protonix Inj IVP 40 mg DAILY NASH Administration Potassium Phos/Sodium Phos 1 pkt 12/31/17 14:00 12/31/17 18:50 Neutra-Phos PO 1 pkt TID NASH Administration - Patient Studies Lab Studies: Microbiology Studies 12/28/17 17:00 Blood Culture - Preliminary Blood NO GROWTH AFTER 4 DAYS 12/28/17 16:30 Blood Culture - Preliminary Blood NO GROWTH AFTER 4 DAYS Lab Studies 01/01/18 01/01/18 01/01/18 Range/Units 11:30 11:15 07:45 WBC (4.5-11.0) 10^3/ul RBC (3.5-6.1) 10^6/uL Hgb (12.0-16.0) g/dL Hct (36.0-48.0) % MCV (80.0-105.0) fl MCH (25.0-35.0) pg MCHC (31.0-37.0) g/dl RDW (11.5-14.5) % Plt Count (120.0-450.0) 10^3/uL Gran % (50.0-68.0) % Lymph % (Auto) (22.0-35.0) % Towns % (Auto) (1.0-6.0) % Eos % (Auto) (1.5-5.0) % Baso % (Auto) (0.0-3.0) % Gran # (1.4-6.5) Lymph # (Auto) (1.2-3.4) Towns # (Auto) (0.1-0.6) Eos # (Auto) (0.0-0.7) Baso # (Auto) (0.0-2.0) K/mm3 Platelet Evaluation (NORMAL) PT (9.4-12.5) SECONDS INR APTT (25.1-36.5) Seconds pCO2 39 (35-45) mm/Hg pO2 32.0 L* (80-100) mm/Hg HCO3 25.9 (21-28) mmol/L ABG pH 7.43 (7.35-7.45) ABG Total CO2 27.1 (22-28) mmol.L ABG O2 Saturation 72.5 L (95-98) % ABG O2 Content 12.9 L (15-23) ML/dl ABG Base Excess 1.5 (-2.0-3.0) mmol/L ABG Hemoglobin 13.0 (11.7-17.4) g/dL ABG Carboxyhemoglobin 1.7 H (0.5-1.5) % POC ABG HHb (Measured) 26.8 H (0-5) % ABG Methemoglobin 1.0 (0.0-3.0) % ABG O2 Capacity 17.8 (16-24) mL/dl ABG Potassium (3.6-5.2) mmol/L Hgb O2 Saturation 70.6 L (95.0-98.0) % Glucose (65-105) mg/dl Lactate (0.7-2.1) mmol/L FiO2 60.0 % Sodium (132-148) mmol/L Potassium (3.6-5.0) mmol/L Chloride (98-107) mmol/L Carbon Dioxide (21-33) mmol/L Anion Gap (10-20) BUN (7-21) mg/dL Creatinine (0.7-1.2) mg/dl Est GFR ( Amer) Est GFR (Non-Af Amer) POC Glucose (mg/dL) 98 147 H (65-110) mg/dL Random Glucose (70-110) mg/dL Calcium (8.4-10.5) mg/dL Phosphorus (2.5-4.5) mg/dL Magnesium (1.7-2.2) mg/dL Total Bilirubin (0.2-1.3) mg/dL AST (14-36) U/L ALT (7-56) U/L Alkaline Phosphatase (38-126) U/L Total Protein (5.8-8.3) g/dL Albumin (3.0-4.8) g/dL Globulin gm/dL Albumin/Globulin Ratio (1.1-1.8) Gukkt-6-Khpmzgfrtyb (83-199) mg/dL Ceruloplasmin (18-53) mg/dL Arterial Blood Potassium (3.6-5.2) mmol/L Proteinase 3 (PR3) (<1.0) AI Myeloperoxidase Ab (<1.0) AI 01/01/18 01/01/18 01/01/18 Range/Units 07:20 05:45 05:45 WBC (4.5-11.0) 10^3/ul RBC (3.5-6.1) 10^6/uL Hgb (12.0-16.0) g/dL Hct (36.0-48.0) % MCV (80.0-105.0) fl MCH (25.0-35.0) pg MCHC (31.0-37.0) g/dl RDW (11.5-14.5) % Plt Count (120.0-450.0) 10^3/uL Gran % (50.0-68.0) % Lymph % (Auto) (22.0-35.0) % Towns % (Auto) (1.0-6.0) % Eos % (Auto) (1.5-5.0) % Baso % (Auto) (0.0-3.0) % Gran # (1.4-6.5) Lymph # (Auto) (1.2-3.4) Towns # (Auto) (0.1-0.6) Eos # (Auto) (0.0-0.7) Baso # (Auto) (0.0-2.0) K/mm3 Platelet Evaluation (NORMAL) PT 14.1 H (9.4-12.5) SECONDS INR 1.22 APTT 33.8 (25.1-36.5) Seconds pCO2 49 H (35-45) mm/Hg pO2 27.0 L* (80-100) mm/Hg HCO3 31.1 H (21-28) mmol/L ABG pH 7.41 (7.35-7.45) ABG Total CO2 32.6 H (22-28) mmol.L ABG O2 Saturation 64.8 L (95-98) % ABG O2 Content (15-23) ML/dl ABG Base Excess 5.3 H (-2.0-3.0) mmol/L ABG Hemoglobin (11.7-17.4) g/dL ABG Carboxyhemoglobin (0.5-1.5) % POC ABG HHb (Measured) (0-5) % ABG Methemoglobin (0.0-3.0) % ABG O2 Capacity (16-24) mL/dl ABG Potassium 4.9 (3.6-5.2) mmol/L Hgb O2 Saturation (95.0-98.0) % Glucose 161 H (65-105) mg/dl Lactate 2.5 H (0.7-2.1) mmol/L FiO2 100.0 % Sodium 144.0 145 (132-148) mmol/L Potassium 4.0 (3.6-5.0) mmol/L Chloride 111.0 H 111 H (98-107) mmol/L Carbon Dioxide 28 (21-33) mmol/L Anion Gap 10 (10-20) BUN 13 (7-21) mg/dL Creatinine 0.5 L (0.7-1.2) mg/dl Est GFR ( Amer) > 60 Est GFR (Non-Af Amer) > 60 POC Glucose (mg/dL) (65-110) mg/dL Random Glucose 163 H (70-110) mg/dL Calcium 7.8 L (8.4-10.5) mg/dL Phosphorus 1.6 L (2.5-4.5) mg/dL Magnesium 1.6 L (1.7-2.2) mg/dL Total Bilirubin 0.8 (0.2-1.3) mg/dL AST 152 H D (14-36) U/L ALT 480 H (7-56) U/L Alkaline Phosphatase 642 H D (38-126) U/L Total Protein 4.9 L (5.8-8.3) g/dL Albumin 2.2 L (3.0-4.8) g/dL Globulin 2.6 gm/dL Albumin/Globulin Ratio 0.9 L (1.1-1.8) Euckl-5-Eybktqacwsh (83-199) mg/dL Ceruloplasmin (18-53) mg/dL Arterial Blood Potassium 4.9 (3.6-5.2) mmol/L Proteinase 3 (PR3) (<1.0) AI Myeloperoxidase Ab (<1.0) AI 01/01/18 12/31/17 12/31/17 Range/Units 05:45 11:32 07:46 WBC 3.5 L D (4.5-11.0) 10^3/ul RBC 4.28 (3.5-6.1) 10^6/uL Hgb 11.8 L (12.0-16.0) g/dL Hct 36.0 (36.0-48.0) % MCV 84.1 (80.0-105.0) fl MCH 27.6 (25.0-35.0) pg MCHC 32.8 (31.0-37.0) g/dl RDW 15.6 H (11.5-14.5) % Plt Count 49 L* (120.0-450.0) 10^3/uL Gran % 89.9 H (50.0-68.0) % Lymph % (Auto) 9.5 L (22.0-35.0) % Towns % (Auto) 0.6 L (1.0-6.0) % Eos % (Auto) 0.0 L (1.5-5.0) % Baso % (Auto) 0.0 (0.0-3.0) % Gran # 3.14 (1.4-6.5) Lymph # (Auto) 0.3 L (1.2-3.4) Towns # (Auto) 0.0 L (0.1-0.6) Eos # (Auto) 0.0 (0.0-0.7) Baso # (Auto) 0.00 (0.0-2.0) K/mm3 Platelet Evaluation Low (NORMAL) PT (9.4-12.5) SECONDS INR APTT (25.1-36.5) Seconds pCO2 (35-45) mm/Hg pO2 (80-100) mm/Hg HCO3 (21-28) mmol/L ABG pH (7.35-7.45) ABG Total CO2 (22-28) mmol.L ABG O2 Saturation (95-98) % ABG O2 Content (15-23) ML/dl ABG Base Excess (-2.0-3.0) mmol/L ABG Hemoglobin (11.7-17.4) g/dL ABG Carboxyhemoglobin (0.5-1.5) % POC ABG HHb (Measured) (0-5) % ABG Methemoglobin (0.0-3.0) % ABG O2 Capacity (16-24) mL/dl ABG Potassium (3.6-5.2) mmol/L Hgb O2 Saturation (95.0-98.0) % Glucose (65-105) mg/dl Lactate (0.7-2.1) mmol/L FiO2 % Sodium (132-148) mmol/L Potassium (3.6-5.0) mmol/L Chloride (98-107) mmol/L Carbon Dioxide (21-33) mmol/L Anion Gap (10-20) BUN (7-21) mg/dL Creatinine (0.7-1.2) mg/dl Est GFR ( Amer) Est GFR (Non-Af Amer) POC Glucose (mg/dL) 105 86 (65-110) mg/dL Random Glucose (70-110) mg/dL Calcium (8.4-10.5) mg/dL Phosphorus (2.5-4.5) mg/dL Magnesium (1.7-2.2) mg/dL Total Bilirubin (0.2-1.3) mg/dL AST (14-36) U/L ALT (7-56) U/L Alkaline Phosphatase (38-126) U/L Total Protein (5.8-8.3) g/dL Albumin (3.0-4.8) g/dL Globulin gm/dL Albumin/Globulin Ratio (1.1-1.8) Wpizv-2-Jpzkrqaambf (83-199) mg/dL Ceruloplasmin (18-53) mg/dL Arterial Blood Potassium (3.6-5.2) mmol/L Proteinase 3 (PR3) (<1.0) AI Myeloperoxidase Ab (<1.0) AI 12/30/17 Range/Units 16:15 WBC (4.5-11.0) 10^3/ul RBC (3.5-6.1) 10^6/uL Hgb (12.0-16.0) g/dL Hct (36.0-48.0) % MCV (80.0-105.0) fl MCH (25.0-35.0) pg MCHC (31.0-37.0) g/dl RDW (11.5-14.5) % Plt Count (120.0-450.0) 10^3/uL Gran % (50.0-68.0) % Lymph % (Auto) (22.0-35.0) % Towns % (Auto) (1.0-6.0) % Eos % (Auto) (1.5-5.0) % Baso % (Auto) (0.0-3.0) % Gran # (1.4-6.5) Lymph # (Auto) (1.2-3.4) Towns # (Auto) (0.1-0.6) Eos # (Auto) (0.0-0.7) Baso # (Auto) (0.0-2.0) K/mm3 Platelet Evaluation (NORMAL) PT (9.4-12.5) SECONDS INR APTT (25.1-36.5) Seconds pCO2 (35-45) mm/Hg pO2 (80-100) mm/Hg HCO3 (21-28) mmol/L ABG pH (7.35-7.45) ABG Total CO2 (22-28) mmol.L ABG O2 Saturation (95-98) % ABG O2 Content (15-23) ML/dl ABG Base Excess (-2.0-3.0) mmol/L ABG Hemoglobin (11.7-17.4) g/dL ABG Carboxyhemoglobin (0.5-1.5) % POC ABG HHb (Measured) (0-5) % ABG Methemoglobin (0.0-3.0) % ABG O2 Capacity (16-24) mL/dl ABG Potassium (3.6-5.2) mmol/L Hgb O2 Saturation (95.0-98.0) % Glucose (65-105) mg/dl Lactate (0.7-2.1) mmol/L FiO2 % Sodium (132-148) mmol/L Potassium (3.6-5.0) mmol/L Chloride (98-107) mmol/L Carbon Dioxide (21-33) mmol/L Anion Gap (10-20) BUN (7-21) mg/dL Creatinine (0.7-1.2) mg/dl Est GFR ( Amer) Est GFR (Non-Af Amer) POC Glucose (mg/dL) (65-110) mg/dL Random Glucose (70-110) mg/dL Calcium (8.4-10.5) mg/dL Phosphorus (2.5-4.5) mg/dL Magnesium (1.7-2.2) mg/dL Total Bilirubin (0.2-1.3) mg/dL AST (14-36) U/L ALT (7-56) U/L Alkaline Phosphatase (38-126) U/L Total Protein (5.8-8.3) g/dL Albumin (3.0-4.8) g/dL Globulin gm/dL Albumin/Globulin Ratio (1.1-1.8) Qwinz-7-Hkivywoxxzd 127 (83-199) mg/dL Ceruloplasmin 24 (18-53) mg/dL Arterial Blood Potassium (3.6-5.2) mmol/L Proteinase 3 (PR3) <1.0 (<1.0) AI Myeloperoxidase Ab <1.0 (<1.0) AI Laboratory Results - last 24 hr 12/30/17 12/31/17 12/31/17 16:15 07:46 11:32 WBC RBC Hgb Hct MCV MCH MCHC RDW Plt Count Gran % Lymph % (Auto) Towns % (Auto) Eos % (Auto) Baso % (Auto) Gran # Lymph # (Auto) Towns # (Auto) Eos # (Auto) Baso # (Auto) Platelet Evaluation PT INR APTT pCO2 pO2 HCO3 ABG pH ABG Total CO2 ABG O2 Saturation ABG O2 Content ABG Base Excess ABG Hemoglobin ABG Carboxyhemoglobin POC ABG HHb (Measured) ABG Methemoglobin ABG O2 Capacity ABG Potassium Hgb O2 Saturation Glucose Lactate FiO2 Sodium Potassium Chloride Carbon Dioxide Anion Gap BUN Creatinine Est GFR ( Amer) Est GFR (Non-Af Amer) POC Glucose (mg/dL) 86 105 Random Glucose Calcium Phosphorus Magnesium Total Bilirubin AST ALT Alkaline Phosphatase Total Protein Albumin Globulin Albumin/Globulin Ratio Gford-2-Elwfxfexjyb 127 Ceruloplasmin 24 Arterial Blood Potassium Proteinase 3 (PR3) <1.0 Myeloperoxidase Ab <1.0 01/01/18 01/01/18 01/01/18 05:45 05:45 05:45 WBC 3.5 L D RBC 4.28 Hgb 11.8 L Hct 36.0 MCV 84.1 MCH 27.6 MCHC 32.8 RDW 15.6 H Plt Count 49 L* Gran % 89.9 H Lymph % (Auto) 9.5 L Towns % (Auto) 0.6 L Eos % (Auto) 0.0 L Baso % (Auto) 0.0 Gran # 3.14 Lymph # (Auto) 0.3 L Towns # (Auto) 0.0 L Eos # (Auto) 0.0 Baso # (Auto) 0.00 Platelet Evaluation Low PT 14.1 H INR 1.22 APTT 33.8 pCO2 pO2 HCO3 ABG pH ABG Total CO2 ABG O2 Saturation ABG O2 Content ABG Base Excess ABG Hemoglobin ABG Carboxyhemoglobin POC ABG HHb (Measured) ABG Methemoglobin ABG O2 Capacity ABG Potassium Hgb O2 Saturation Glucose Lactate FiO2 Sodium 145 Potassium 4.0 Chloride 111 H Carbon Dioxide 28 Anion Gap 10 BUN 13 Creatinine 0.5 L Est GFR ( Amer) > 60 Est GFR (Non-Af Amer) > 60 POC Glucose (mg/dL) Random Glucose 163 H Calcium 7.8 L Phosphorus 1.6 L Magnesium 1.6 L Total Bilirubin 0.8 AST 152 H D ALT 480 H Alkaline Phosphatase 642 H D Total Protein 4.9 L Albumin 2.2 L Globulin 2.6 Albumin/Globulin Ratio 0.9 L Jyghl-6-Rsualyjxujd Ceruloplasmin Arterial Blood Potassium Proteinase 3 (PR3) Myeloperoxidase Ab 01/01/18 01/01/18 01/01/18 07:20 07:45 11:15 WBC RBC Hgb Hct MCV MCH MCHC RDW Plt Count Gran % Lymph % (Auto) Towns % (Auto) Eos % (Auto) Baso % (Auto) Gran # Lymph # (Auto) Towns # (Auto) Eos # (Auto) Baso # (Auto) Platelet Evaluation PT INR APTT pCO2 49 H 39 pO2 27.0 L* 32.0 L* HCO3 31.1 H 25.9 ABG pH 7.41 7.43 ABG Total CO2 32.6 H 27.1 ABG O2 Saturation 64.8 L 72.5 L ABG O2 Content 12.9 L ABG Base Excess 5.3 H 1.5 ABG Hemoglobin 13.0 ABG Carboxyhemoglobin 1.7 H POC ABG HHb (Measured) 26.8 H ABG Methemoglobin 1.0 ABG O2 Capacity 17.8 ABG Potassium 4.9 Hgb O2 Saturation 70.6 L Glucose 161 H Lactate 2.5 H FiO2 100.0 60.0 Sodium 144.0 Potassium Chloride 111.0 H Carbon Dioxide Anion Gap BUN Creatinine Est GFR ( Amer) Est GFR (Non-Af Amer) POC Glucose (mg/dL) 147 H Random Glucose Calcium Phosphorus Magnesium Total Bilirubin AST ALT Alkaline Phosphatase Total Protein Albumin Globulin Albumin/Globulin Ratio Iyltr-2-Okvlhktmjyi Ceruloplasmin Arterial Blood Potassium 4.9 Proteinase 3 (PR3) Myeloperoxidase Ab 01/01/18 11:30 WBC RBC Hgb Hct MCV MCH MCHC RDW Plt Count Gran % Lymph % (Auto) Towns % (Auto) Eos % (Auto) Baso % (Auto) Gran # Lymph # (Auto) Towns # (Auto) Eos # (Auto) Baso # (Auto) Platelet Evaluation PT INR APTT pCO2 pO2 HCO3 ABG pH ABG Total CO2 ABG O2 Saturation ABG O2 Content ABG Base Excess ABG Hemoglobin ABG Carboxyhemoglobin POC ABG HHb (Measured) ABG Methemoglobin ABG O2 Capacity ABG Potassium Hgb O2 Saturation Glucose Lactate FiO2 Sodium Potassium Chloride Carbon Dioxide Anion Gap BUN Creatinine Est GFR ( Amer) Est GFR (Non-Af Amer) POC Glucose (mg/dL) 98 Random Glucose Calcium Phosphorus Magnesium Total Bilirubin AST ALT Alkaline Phosphatase Total Protein Albumin Globulin Albumin/Globulin Ratio Kdvcg-6-Swoummprfzm Ceruloplasmin Arterial Blood Potassium Proteinase 3 (PR3) Myeloperoxidase Ab Fingerstick Blood Sugar Results: 172 Review of Systems - Review of Systems Systems not reviewed;Unavailable: Altered Mental Status Review of Systems: As per [facility] Critical Care Progress Note - Ventilator Checklist Head of Bed 30 Degrees: Yes Daily Assessment of Readiness to Wean: Yes - Vent Settings TIDAL VOLUME:: 300 RESP RATE:: 25 FIO2:: 80 PEEP:: 10 PRESSURE SUPPORT:: 30 - Extremities/Vascular Does the Patient have a Central Venous Catheter?: No - Prophylaxis GI Prophylaxis GI: PPI - Prophylaxis DVT Prophylaxis DVT: Not Indicated (Thrombocytopenic) - Nutrition Nutrition: Nutrition Category Date Time Status Pureed [Dysphagia/Modified Consistency Diet] [DIET] Diets 12/29/17 Lunch Ordered Assessment/Plan - Assessment and Plan (Free Text) Assessment: 42F w/ a PMH of developmental delay presenting w/ AMS, hypotesnion, bradycardia , Acute liver failure. Her liver failure appears to be resolving however patient recently showed s/s of new onset PNA. She was intubated and started on pressors as she was not protecting her airway, and hemodynamically unstable. Neuro: -Sedated however OLIVE 0 -Fentanyl Drip @ 40mcg/hr -Base line AAO1 -Ammonia normal yesterday -CT Head on admission negative, repeat CT head negative -Maintaining Normothermia without bear hugger now -seizure, aspiration and high fall risk precautions -EEG wnl -on keppra 500 Q12 -Neurology on consulted Cardio: -Patient no longer able to support pressures on her own -On levophed at 4mcg/min -On vasopression at 0.03 unit/min -Maintain Map >65; Titrate as necessary -Monitor for peripheral limb ischemia -Restarted 50mg SoluCortef stress steroid QD Lungs: -Hypoxemic respiratory acidosis ML 2/2 CAP vs HCAP vs Aspiration pneumonia -Patient intubated overnight; Vent settings Peak 30/ PEEP 10/ RR 25/ FIo2 100/ TV 300 -CXR on 01/01 AM showed RML Consolidation -C/w Zosyn -CTAP on 01/01 showed the same -ADM CT chest shows LLB atelectasis/infiltrate and acute left rib 7-9 fracture concerning for trauma/fall -CXR shows no active disease Nephro: -Maintain euvolemia -C/w D5 1/2 NS @ 100mls/hr -HypoMg, HypoPhos - repleted this AM; Recheck in PM -Avoid nephrotoxic agents, hypochloremia -Replace electrolytes as needed -BUN/Cr WNL -urine drug screen and acetominphen level are negative GI: -AST/ALT improving; Alk phos Improving -Acute elevation may have been 2/2 Meropenem -Patient switched to Zosyn tooday Hepatic Workup: -Smooth muscle Ab negative -Copper/ Ceruloplasmin pending -ANCA pending -Alpha1 Antitrypsin pending -Mitochondrial Ab pending -No hepatic thrombosis on duplex -Albumin level stable however still decreased; most likely 2/2 malnutrition- Prealbumin level pending -Patient is cachectic with BMI of 10, concern for chronic malnutrition -CT abd/chest shows severe edema in mesenteric fat, esophagitis and pelvis ascites. The swelling is consistent with severe malnutrition with low albumin -hepatitis panel is negative -Non tappable ascities on bedside US yesterday -CA-125 wnl -GI prophylaxis with protonix -NPO -GI on consult, Dr. Rizo Heme: -H/H Stable and improving -S/p 2U pRBC on adm -Thrombocytopenia - most likely 2/2 shock liver; vs HIT -Thrombocytopenia improving -Holding heparin at this time -Continue monitor for s/s of bleeding -Microcytic Anemia -Patient had an acute drop in WBC this AM; 11-->3 ; continue following : -TVUS pending -Can resume feeds once HD stable Endo: -Euglycemic/ Hyperglycemic now -currently receiving D5 1/2 NS @ 125 ml/hr -c-peptide wnl -Will get A1C level -TSH WNL ID: -New onset HCAP PNA vs Aspiration PNA on 01/01 AM -On vent as above -C/w Zosyn -Will trend ProCal -Questionable septic shock due to bactremia vs contaminated samples; source of infection is still unclear -WBC wnl -Blood Cx 1/2 - negative @ 3 days -Blood Cx 1/2 - GNR -Repeat Cx 2/2 neagative @ 24H -Urine Cx negative -Merem was DC'd as possible cause of transaminitis -HIV Panel negative -ID on consult, Dr. Miles GI/DVT Ppx: Protonix IVP, SCDs do not fit -Midline inserted 01/01 -Can consider central line if necessary Disposition: Patient unstable due to new onset Asp PNA vs HCAP vs CAP in setting of severe malnutrition w/ hx of developmental disability. Patient was seen, examined, and discussed w/ attending physician Dr. Sage Welch DO PGY1 - Internal Medicine Customs Verifier - Pager [phone] - Date & Time Date: 01/01/18 Time: 22:44 <Silver Cazares - Last Filed: 01/02/18 08:06> CCU Objective - Vital Signs / Intake & Output Vital Signs (Last 4 hours): Vital Signs Temp Pulse BP Pulse Ox 01/02/18 06:00 60 01/02/18 05:50 99.0 F 70 01/02/18 05:49 99.0 F 71 01/02/18 05:48 99.0 F 70 01/02/18 05:47 99.0 F 70 01/02/18 05:46 99.0 F 67 01/02/18 05:45 99.0 F 67 01/02/18 05:44 99.0 F 67 01/02/18 05:43 99.0 F 67 01/02/18 05:42 99.0 F 68 01/02/18 05:41 99.0 F 68 01/02/18 05:40 99.0 F 69 01/02/18 05:39 99.0 F 68 01/02/18 05:38 99.0 F 71 01/02/18 05:37 99.0 F 70 01/02/18 05:36 99.0 F 72 01/02/18 05:35 99.0 F 73 01/02/18 05:34 99.0 F 74 01/02/18 05:33 110/83 01/02/18 05:32 99.0 F 74 01/02/18 05:31 99.0 F 75 01/02/18 05:30 99.0 F 76 01/02/18 05:29 99.0 F 74 01/02/18 05:28 99.0 F 75 01/02/18 05:27 99.1 F 80 01/02/18 05:26 99.1 F 79 01/02/18 05:25 99.1 F 103 H 01/02/18 05:24 99.1 F 104 H 01/02/18 05:23 99.1 F 126 H 01/02/18 05:22 99.1 F 123 H 01/02/18 05:19 99.3 F 92 L 01/02/18 05:18 99.5 F 93 L 01/02/18 05:16 99.5 F 81 L 01/02/18 05:15 90.7 F L 86 L 01/02/18 05:14 90.3 F L 84 L 01/02/18 05:13 87.8 F L 96 01/02/18 05:12 99.7 F H 100 01/02/18 05:11 99.7 F H 100 01/02/18 05:08 99.7 F H 100 01/02/18 05:00 99.7 F H 89 121/81 100 01/02/18 04:30 99.5 F 65 95/61 L 100 Intake and Output (Last 8hrs): Intake & Output 01/01/18 01/02/18 01/02/18 22:59 06:59 14:59 Intake Total 0 1150 Output Total 450 800 Balance -450 350 Weight 69 lb Intake: IV 0 1150 Right Hand 1150 Output: Urine 450 800 Urethral (Jimenez) 450 800 Other: # Bowel Movements 1 - Medications Active Medications: Active Medications Generic Name Dose Route Start Last Admin Trade Name Freq PRN Reason Stop Dose Admin Hydrocortisone Sodium Succinate 50 mg 01/01/18 14:00 01/02/18 06:01 Solu-Cortef IVP 01/03/18 06:01 50 mg Q8 NASH Administration Levetiracetam 500 mg in 100 mls @ 460 mls/hr 12/27/17 07:57 01/01/18 22:38 Keppra 500mg Ivpb IV 460 mls/hr Q12 NASH Administration Piperacillin Sod/Tazobactam Sod 100 mls @ 200 mls/hr 12/30/17 19:55 01/02/18 06:09 Zosyn 3.375 In Ns 100ml IVPB 01/08/18 19:56 200 mls/hr Q6 NASH Administration Protocol Fentanyl Citrate 1,000 mcg in 100 mls @ 2 mls/hr 01/01/18 05:31 01/01/18 22: 30 Fentanyl Citrate/Sodium Chloride 1 Mg/100 Ml IV 20 mcg/hr .Q24H PRN 2 mls/hr TITRATE PER MD ORDER Administration Protocol 20 MCG/HR Vasopressin 20 units/ Sodium 101 mls @ 9.09 mls/hr 01/01/18 11:30 01/01/18 22 :41 Chloride IV 9.09 mls/hr .[id number] NASH Administration Protocol 0.03 U/MIN Norepinephrine Bitartrate 8 mg 508 mls @ 15.24 mls/hr 01/01/18 20:12 / Sodium Chloride IV .Q24H PRN TITRATE PER MD ORDER Protocol 4 MCG/MIN Magnesium Sulfate/Dextrose 1 gm in 100 mls @ 100 mls/hr 01/02/18 07:58 Magnesium Sulfate 1 Gm/100 Ml D5w IVPB 01/02/18 08:57 ONCE ONE Potassium Phosphate 15 mmole/ 255 mls @ 42.5 mls/hr 01/02/18 08:15 Sodium Chloride IVPB 01/03/18 14:14 Q8H NASH Insulin Human Regular 0 units 01/01/18 22:00 01/01/18 22:34 Humulin R High SC Not Given ACHS NASH Protocol Levalbuterol HCl 1.25 mg 12/31/17 18:28 Xopenex IH [id number] PRN Shortness of Breath Pantoprazole Sodium 40 mg 12/26/17 10:00 01/01/18 10:21 Protonix Inj IVP 40 mg DAILY NASH Administration Potassium Phos/Sodium Phos 1 pkt 12/31/17 14:00 12/31/17 18:50 Neutra-Phos PO 1 pkt TID NAHS Administration - Patient Studies Lab Studies: Microbiology Studies 12/28/17 17:00 Blood Culture - Preliminary Blood NO GROWTH AFTER 4 DAYS 12/28/17 16:30 Blood Culture - Preliminary Blood NO GROWTH AFTER 4 DAYS Lab Studies 01/01/18 01/01/18 01/01/18 Range/Units 11:30 11:15 07:45 pCO2 39 (35-45) mm/Hg pO2 32.0 L* (80-100) mm/Hg HCO3 25.9 (21-28) mmol/L ABG pH 7.43 (7.35-7.45) ABG Total CO2 27.1 (22-28) mmol.L ABG O2 Saturation 72.5 L (95-98) % ABG O2 Content 12.9 L (15-23) ML/dl ABG Base Excess 1.5 (-2.0-3.0) mmol/L ABG Hemoglobin 13.0 (11.7-17.4) g/dL ABG Carboxyhemoglobin 1.7 H (0.5-1.5) % POC ABG HHb (Measured) 26.8 H (0-5) % ABG Methemoglobin 1.0 (0.0-3.0) % ABG O2 Capacity 17.8 (16-24) mL/dl Hgb O2 Saturation 70.6 L (95.0-98.0) % FiO2 60.0 % POC Glucose (mg/dL) 98 147 H (65-110) mg/dL [id number] (83-199) mg/dL Ceruloplasmin (18-53) mg/dL ANCA Screen (NEGATIVE) c-ANCA Titer Proteinase 3 (PR3) (<1.0) AI p-ANCA Titer Atypical p-ANCA Titer Myeloperoxidase Ab (<1.0) AI 08/2912/31/17 12/30/17 Range/Units 11:32 07:46 16:15 pCO2 (35-45) mm/Hg pO2 (80-100) mm/Hg HCO3 (21-28) mmol/L ABG pH (7.35-7.45) ABG Total CO2 (22-28) mmol.L ABG O2 Saturation (95-98) % ABG O2 Content (15-23) ML/dl ABG Base Excess (-2.0-3.0) mmol/L ABG Hemoglobin (11.7-17.4) g/dL ABG Carboxyhemoglobin (0.5-1.5) % POC ABG HHb (Measured) (0-5) % ABG Methemoglobin (0.0-3.0) % ABG O2 Capacity (16-24) mL/dl Hgb O2 Saturation (95.0-98.0) % FiO2 % POC Glucose (mg/dL) 105 86 (65-110) mg/dL Lcqps-0-Dwhkdxtmjmn 127 (83-199) mg/dL Ceruloplasmin 24 (18-53) mg/dL ANCA Screen Negative (NEGATIVE) c-ANCA Titer TNP Proteinase 3 (PR3) <1.0 (<1.0) AI p-ANCA Titer TNP Atypical p-ANCA Titer TNP Myeloperoxidase Ab <1.0 (<1.0) AI Laboratory Results - last 24 hr 12/30/17 12/31/17 12/31/17 16:15 07:46 11:32 pCO2 pO2 HCO3 ABG pH ABG Total CO2 ABG O2 Saturation ABG O2 Content ABG Base Excess ABG Hemoglobin ABG Carboxyhemoglobin POC ABG HHb (Measured) ABG Methemoglobin ABG O2 Capacity Hgb O2 Saturation FiO2 POC Glucose (mg/dL) 86 105 Hldyq-5-Bbnoyyplndb 127 Ceruloplasmin 24 ANCA Screen Negative c-ANCA Titer TNP Proteinase 3 (PR3) <1.0 p-ANCA Titer TNP Atypical p-ANCA Titer TNP Myeloperoxidase Ab <1.0 01/01/18 01/01/18 01/01/18 07:45 11:15 11:30 pCO2 39 pO2 32.0 L* HCO3 25.9 ABG pH 7.43 ABG Total CO2 27.1 ABG O2 Saturation 72.5 L ABG O2 Content 12.9 L ABG Base Excess 1.5 ABG Hemoglobin 13.0 ABG Carboxyhemoglobin 1.7 H POC ABG HHb (Measured) 26.8 H ABG Methemoglobin 1.0 ABG O2 Capacity 17.8 Hgb O2 Saturation 70.6 L FiO2 60.0 POC Glucose (mg/dL) 147 H 98 Tyapd-0-Rlwqyzvqjqg Ceruloplasmin ANCA Screen c-ANCA Titer Proteinase 3 (PR3) p-ANCA Titer Atypical p-ANCA Titer Myeloperoxidase Ab Critical Care Progress Note - Nutrition Nutrition: Nutrition Category Date Time Status Pureed [Dysphagia/Modified Consistency Diet] [DIET] Diets 12/29/17 Lunch Ordered Attending/Attestation - Attestation I have personally seen and examined this patient.: Yes I have fully participated in the care of the patient.: Yes I have reviewed all pertinent clinical information: Yes Notes (Text): 01/02/18 08:[address] Cazares note
[2018-01-01] MEDS: Fentanyl 1000mcg/100ml NS 1,000 MCG/100 ML BAG IV PRN (22:30)
[2018-01-01] MEDS: Insulin Reg-HIGH-Coverage SC SCH (22:34)
[2018-01-02] MEDS: Piperacillin/Tazobact 3.375 gm 100 ML IVPB SCH ×3 (00:14→12:00)
[2018-01-02 00:52] LABS: ANCA SCREEN NEGATIVE (NEGATIVE)
[2018-01-02] MEDS: Potassium Chloride 40 MEQ in Dextrose 5%/0.45% NS 1,000 ML IV SCH (05:59)
[2018-01-02] MEDS ORDERED: Magnesium Sulfate 1 gm in D5W 1 GM/100 ML BAG IVPB ONE (07:58)
[2018-01-02] MEDS ORDERED: Potassium Phosphate 3 mmol/ml Inj IV SCH (08:00)
[2018-01-02] MEDS ORDERED: Potassium Phosphate 15 MMOLE in Sodium Chloride 0.9% 250 ML IVPB SCH (08:15)
[2018-01-02 08:29] LABS: GRAN # 6.53 (1.4-6.5); GRAN % 92.6 % (50.0-68.0); HEMOGLOBIN 9.1 g/dL (12.0-16.0); LYMPH # 0.4 (1.2-3.4); MEAN CORPUSCULAR HGB CONC 34.6 g/dl (31.0-37.0); MONO # 0.1 (0.1-0.6); MONO % 1.4 % (1.0-6.0); RBC 3.25 10^6/uL (3.5-6.1); RED CELL DISTRIBUTION WIDTH 15.8 % (11.5-14.5); WHITE BLOOD COUNT 7.1 10^3/ul (4.5-11.0)
[2018-01-02 08:34] LABS: VENOUS BLOOD GAS BASE EXCESS -7.3 mmol/L (0.0-2.0); VENOUS BLOOD GAS PO2 44 mm/Hg (30-55); VENOUS BLOOD PH 7.32 (7.32-7.43)
[2018-01-02 08:42] LABS: MEAN CELL VOLUME 80.9 fl (80.0-105.0); PLATELET COUNT 43 10^3/uL (120.0-450.0)
[2018-01-02 08:51] LABS: ALB/GLOB RATIO 0.7 (1.1-1.8); ALBUMIN 1.7 g/dL (3.0-4.8); ALT/SGPT 306 U/L (7-56); AST/SGOT 93 U/L (14-36); BLOOD UREA NITROGEN 15 mg/dL (7-21); GFR NON-AFRICAN AMERICAN > 60
--- NOTE | 2018-01-02 08:55 | PN ---
Copied To: Silver Cazares MD Attending MD: Silver Cazares MD DATE: 01/02/2018 SUBJECTIVE: The patient is seen and examined at bedside. She appears to be more alert and awake. She is on fentanyl 40 mcg per hour. She is off of norepinephrine and she is off of vasopressin. Her blood pressure is 115/70, her oxygen saturation 100% on 60% FIO2. She is on PRVC 300/25/10/60. ph 7.32. Temperature 98.2. She does not require warming blanket anymore. Heart rate 67. Chest x-ray showed bilateral vascular congestion with more dense right lower lobe infiltrate, which appears to be fairly unchanged compared with yesterday. Labs reviewed. PE: VS see above HEENT: atraumatic Lungs: few rales b/l Heart, s1s2 nl Abdo: soft, nt, nd DEMI: muscle wasting, contractures Skin: moist psych: more laert and awake MEDICATIONS: Fentanyl drip, Lasix 20 mg IV once, hydrocortisone 50 mg IV every 8 (will be tapered), regular insulin sliding scale high protocol, Xopenex p.r.n., Keppra 500 mg IV every 12, magnesium, potassium and phosphate supplementation, Protonix 40 mg IV daily, vasopressin is off, Zosyn. Labs: wbc 7.1, Hb 9.1 (no overt bleeding), plat 43, inr 3.56 (peripheral smear-- >no schistocytes and no signs of hemolysis), likely relates to liver dysfunction +critical illness, will supplement albumin with hyperoncotic albumin solution ( patient has liver cirrhosis, ascites, synthetic dysfunction and albumin level is 1.7). Na 147, Cl 111, c02 26, BUM 15, creat 0.7, gluc 87. AST 113, ALT 349, TB 0.8, LA 1.8 ASSESSMENT AND PLAN: This is a 42-year-old lady with hypoxemic respiratory failure due to progression of healthcare-associated pneumonia requiring intubation, complicated by gram-negative bacteremia with subsequent blood culture cleared. The patient is on Zosyn and Infectious Disease Service is following her as well. 1. Neurologic: The patient requires only minimal sedation and appears to be back to her baseline in terms of her mental status. 2. Pulmonary: The patient appears to have severe healthcare-associated pneumonia/adult respiratory distress syndrome, even though she showed some strides toward improvement (FIO2 down from 80% to 60% with maintaining oxygen saturation at 100). We will continue with strict low tidal volume ventilation at 4-8 mL per predicted body weight and plateau pressure less than 30 cmH20. Head of bed elevated at >35 degrees. Conservative fluid and oxygen management. We will aggressively supplement electrolytes and diurese the patient. First dose of Lasix 20 mg IV was given. Oral hygiene. Mechanical deep venous thrombosis prophylaxis (the patient has thrombocytopenia) and gastrointestinal prophylaxis as a part of VAP bundle. Sputum culture is pending. Once FIO2 requirement remains at 50% or lower and PEEP gets to 5 cm of water, we will proceed with weaning trials. Daily sedation vacation. The patient is on Zosyn and ID Service is following her for now resolved gram-negative bacteremia and ongoing healthcare-associated pneumonia. 3. Infectious disease: The patient has severe sepsis due to severe healthcare-associated pneumonia requiring ventilatory support. The patient is on Zosyn. Bacterial speciation is still pending. Sputum culture is still pending. 4. Gastrointestinal: We will start careful enteral nutrition. We will aggressively supplement electrolytes. Head of bed elevated more than 35 degrees and gastrointestinal prophylaxis. Started to show signs of liver synthetic dysfunction-->will start hyperoncotic albumin, No overt bleeding, will watchfully observe coags. GI follow up appreciated 5. Renal: We will maintain mean arterial pressure more than 65, avoid hyperchloremia and nephrotoxic medication, but not at expense of treating underlying disease. We will aggressively supplement electrolytes and we will diurese the patient to optimize her respiratory status. 6. Endocrine. We will maintain blood glucose within 140-180 range according to night sugar trial. 7. CVS: The patient is hemodynamically stable at present time. Weaned off pressors completely. Conservative fluid management is in progress. 8. Hem: no schystocytes, no signs of hemolysis. Coags abnormalities. trombocytopenia are likely due to liver dysfunction and BM suppression due to severe sepsis ccm time 40 min ` Silver Cazares MD [facility]
[2018-01-02] MEDS: levETIRAcetam 500mg IVPB 500 MG/100 ML BAG IV SCH ×2 (09:06→23:08)
[2018-01-02] MEDS: Insulin Reg-HIGH-Coverage SC SCH ×2 (09:06→13:07)
[2018-01-02 09:13] LABS: PARTIAL THROMBOPLASTIN TIME 70.2 Seconds (25.1-36.5)
[2018-01-02 09:17] LABS: INR 3.56
[2018-01-02] MEDS ORDERED: Sodium Bicarbonate (8.4%) 50 Meq Syringe IVP ONE (09:17)
[2018-01-02] MEDS ORDERED: Dextrose 50% SYRINGE Inj (50 ml) IVP ONE ×4 (09:17→21:37)
[2018-01-02] MEDS ORDERED: Insulin Regular 1 UNITS/0.01 ML ML IV ONE (09:18)
[2018-01-02 09:32] LABS: D DIMER 1293 ng/mlDDU (0-243); FIBRINOGEN 161 mg/dl (200-400)
--- NOTE | 2018-01-02 09:36 | RAD ---
Date of service: 01/02/2018 HISTORY: Intubated COMPARISON: 01/01/2018 FINDINGS: LUNGS: Extensive bilateral alveolar infiltrates consistent with pneumonia or pulmonary edema PLEURA: No significant pleural effusion identified, no pneumothorax apparent. CARDIOVASCULAR: Normal. OSSEOUS STRUCTURES: No significant abnormalities. VISUALIZED UPPER ABDOMEN: Normal. OTHER FINDINGS: Endotracheal tube and nasogastric tube in satisfactory position IMPRESSION: Extensive bilateral alveolar infiltrates increased from prior study.
[2018-01-02 09:45] LABS: BAND 7 % (0-2); LYMPHOCYTE 9 % (22.0-35.0); METAMYELOCYTE 2 %; MONOCYTE 1 % (1.0-6.0); NEUTROPHIL 81 % (50.0-70.0)
[2018-01-02 09:46] LABS: ANISOCYTOSIS SLIGHT; POIKILOCYTOSIS SLIGHT
[2018-01-02] MEDS: Levalbuterol 1.25 MG/3 ML Inhal Soln UD IH PRN ×2 (09:46→14:32)
[2018-01-02 09:48] LABS: BURR CELLS SLIGHT; PLATELET ESTIMATE LOW (NORMAL)
--- NOTE | 2018-01-02 11:53 | CP.CCUPN ---
<Gertrudis Velarde - Last Filed: 01/02/18 11:57> CCU Subjective - Physician Review Events Since Last Encounter (Free Text): 01/02/18 11:49 Patient seen and examined at bedside. Patient had Levophed and Vasopressin turned off overnight, patient's BP stable off drips. Patient remains intubated on PRVC mode, on 60% FiO2, difficult to obtain ABG. Patient opening eyes spontaneously, does not follow commands. ROS difficult to obtain as patient is intubated. CCU Objective - Vital Signs / Intake & Output Vital Signs (Last 4 hours): Vital Signs BP 01/02/18 08:58 117/81 Intake and Output (Last 8hrs): Intake & Output 01/01/18 01/02/18 01/02/18 22:59 06:59 14:59 Intake Total 0 1150 Output Total 450 800 Balance -450 350 Weight 69 lb Intake: IV 0 1150 Right Hand 1150 Output: Urine 450 800 Urethral (Jimenez) 450 800 Other: # Bowel Movements 1 - Physical Exam Head: Positive for: Atraumatic, Normocephalic Pupils: Positive for: PERRL Extroacular Muscles: Positive for: EOMI Conjunctiva: Positive for: Normal Mouth: Positive for: Other (POOR DENTITION; intubated) Neck: Positive for: Other (unable to assess, intubated) Respiratory/Chest: Positive for: Rhonchi (bilaterally), Other (intubated on PRVC mode). Negative for: Accessory Muscle Use, Wheezes, Decreased Breath Sounds, Rales, Retracting, Tender to Palpation Cardiovascular: Positive for: Regular Rate and Rhythm, Normal S1, S2. Negative for: Murmurs Abdomen: Positive for: Normal Bowel Sounds, Other (Abdomen is scaphoid; soft). Negative for: Tenderness, Distention, Peritoneal Signs, Rebound, Guarding, McBurney's Point Tender, Rovsing's Sign Present, Hernias, Feeding Tubes, Ostomy Tubes, Mass/Organomegaly, Scars Back: Positive for: Normal Inspection Upper Extremity: Positive for: Normal Inspection. Negative for: Cyanosis, Edema Lower Extremity: Positive for: Normal Inspection, NORMAL PULSES ( pulses strong and equal, bilateral and present). Negative for: Edema Neurological: Positive for: Other (intubated) Skin: Positive for: Warm, Dry, Normal Color. Negative for: Rashes - Medications Active Medications: Active Medications Generic Name Dose Route Start Last Admin Trade Name Freq PRN Reason Stop Dose Admin Hydrocortisone Sodium Succinate 50 mg 01/02/18 08:15 01/02/18 09:08 Solu-Cortef IVP 01/03/18 08:16 50 mg Q12H NASH Administration Levetiracetam 500 mg in 100 mls @ 460 mls/hr 12/27/17 07:57 01/02/18 09:06 Keppra 500mg Ivpb IV 460 mls/hr Q12 NASH Administration Piperacillin Sod/Tazobactam Sod 100 mls @ 200 mls/hr 12/30/17 19:55 01/02/18 06:09 Zosyn 3.375 In Ns 100ml IVPB 01/08/18 19:56 200 mls/hr Q6 NASH Administration Protocol Fentanyl Citrate 1,000 mcg in 100 mls @ 2 mls/hr 01/01/18 05:31 01/01/18 22: 30 Fentanyl Citrate/Sodium Chloride 1 Mg/100 Ml IV 20 mcg/hr .Q24H PRN 2 mls/hr TITRATE PER MD ORDER Administration Protocol 20 MCG/HR Vasopressin 20 units/ Sodium 101 mls @ 9.09 mls/hr 01/01/18 11:30 01/01/18 22 :41 Chloride IV 9.09 mls/hr .[id number] NASH Administration Protocol 0.03 U/MIN Norepinephrine Bitartrate 8 mg 508 mls @ 15.24 mls/hr 01/01/18 20:12 / Sodium Chloride IV .Q24H PRN TITRATE PER MD ORDER Protocol 4 MCG/MIN Insulin Human Regular 0 units 01/01/18 22:00 01/02/18 09:06 Humulin R High SC 10 unit ACHS NASH Administration Protocol Levalbuterol HCl 1.25 mg 12/31/17 18:28 01/02/18 09:46 Xopenex IH 1.25 mg [id number] PRN Administration Shortness of Breath Pantoprazole Sodium 40 mg 12/26/17 10:00 01/02/18 09:07 Protonix Inj IVP 40 mg DAILY NASH Administration Potassium Phos/Sodium Phos 1 pkt 12/31/17 14:00 12/31/17 18:50 Neutra-Phos PO 1 pkt TID NASH Administration - Patient Studies Lab Studies: Microbiology Studies 12/28/17 17:00 Blood Culture - Preliminary Blood NO GROWTH AFTER 4 DAYS 12/28/17 16:30 Blood Culture - Preliminary Blood NO GROWTH AFTER 4 DAYS Lab Studies 01/02/18 01/02/18 01/02/18 Range/Units 11:29 08:30 08:17 WBC (4.5-11.0) 10^3/ul RBC (3.5-6.1) 10^6/uL Hgb (12.0-16.0) g/dL Hct (36.0-48.0) % MCV (80.0-105.0) fl MCH (25.0-35.0) pg MCHC (31.0-37.0) g/dl RDW (11.5-14.5) % Plt Count (120.0-450.0) 10^3/uL Gran % (50.0-68.0) % Lymph % (Auto) (22.0-35.0) % [place] % (Auto) (1.0-6.0) % Eos % (Auto) (1.5-5.0) % Baso % (Auto) (0.0-3.0) % Gran # (1.4-6.5) Lymph # (Auto) (1.2-3.4) [place] # (Auto) (0.1-0.6) Eos # (Auto) (0.0-0.7) Baso # (Auto) (0.0-2.0) K/mm3 Neutrophils % (Manual) (50.0-70.0) % Band Neutrophils % (0-2) % Lymphocytes % (Manual) (22.0-35.0) % Monocytes % (Manual) (1.0-6.0) % Metamyelocytes % % Platelet Evaluation (NORMAL) Poikilocytosis (manual Anisocytosis (manual) [place] Cells PT (9.4-12.5) SECONDS INR APTT (25.1-36.5) Seconds Fibrinogen 161 L (200-400) mg/dl D-Dimer, Quantitative 1293 H (0-243) ng/mlDDU pO2 (30-55) mm/Hg VBG pH (7.32-7.43) VBG pCO2 (40-60) VBG HCO3 (21-28) mmol/l VBG Total CO2 (22-28) mmol.L VBG O2 Sat (Calc) (40-65) % VBG Base Excess (0.0-2.0) mmol/L VBG Potassium (3.6-5.2) mmol/L Sodium (132-148) mmol/L Chloride (98-107) mmol/L Glucose (65-105) mg/dl Lactate (0.7-2.1) mmol/L FiO2 % Potassium (3.6-5.0) mmol/L Carbon Dioxide (21-33) mmol/L Anion Gap (10-20) BUN (7-21) mg/dL Creatinine (0.7-1.2) mg/dl Est GFR ( Amer) Est GFR (Non-Af Amer) POC Glucose (mg/dL) 111 H 306 H (65-110) mg/dL Random Glucose (70-110) mg/dL Calcium (8.4-10.5) mg/dL Phosphorus (2.5-4.5) mg/dL Magnesium (1.7-2.2) mg/dL Total Bilirubin (0.2-1.3) mg/dL AST (14-36) U/L ALT (7-56) U/L Alkaline Phosphatase (38-126) U/L Total Protein (5.8-8.3) g/dL Albumin (3.0-4.8) g/dL Globulin gm/dL Albumin/Globulin Ratio (1.1-1.8) Venous Blood Potassium (3.6-5.2) mmol/L ANCA Screen (NEGATIVE) c-ANCA Titer Proteinase 3 (PR3) (<1.0) AI p-ANCA Titer Atypical p-ANCA Titer Myeloperoxidase Ab (<1.0) AI 01/02/18 01/02/18 01/02/18 Range/Units 08:10 08:10 08:10 WBC (4.5-11.0) 10^3/ul RBC (3.5-6.1) 10^6/uL Hgb (12.0-16.0) g/dL Hct (36.0-48.0) % MCV (80.0-105.0) fl MCH (25.0-35.0) pg MCHC (31.0-37.0) g/dl RDW (11.5-14.5) % Plt Count (120.0-450.0) 10^3/uL Gran % (50.0-68.0) % Lymph % (Auto) (22.0-35.0) % [place] % (Auto) (1.0-6.0) % Eos % (Auto) (1.5-5.0) % Baso % (Auto) (0.0-3.0) % Gran # (1.4-6.5) Lymph # (Auto) (1.2-3.4) [place] # (Auto) (0.1-0.6) Eos # (Auto) (0.0-0.7) Baso # (Auto) (0.0-2.0) K/mm3 Neutrophils % (Manual) (50.0-70.0) % Band Neutrophils % (0-2) % Lymphocytes % (Manual) (22.0-35.0) % Monocytes % (Manual) (1.0-6.0) % Metamyelocytes % % Platelet Evaluation (NORMAL) Poikilocytosis (manual Anisocytosis (manual) Carlos Cells PT 42.0 H (9.4-12.5) SECONDS INR 3.56 H* APTT 70.2 H (25.1-36.5) Seconds Fibrinogen (200-400) mg/dl D-Dimer, Quantitative (0-243) ng/mlDDU pO2 44 (30-55) mm/Hg VBG pH 7.32 (7.32-7.43) VBG pCO2 35.0 L (40-60) VBG HCO3 18.0 L (21-28) mmol/l VBG Total CO2 19.1 L (22-28) mmol.L VBG O2 Sat (Calc) 81.5 H (40-65) % VBG Base Excess -7.3 L (0.0-2.0) mmol/L VBG Potassium 3.5 L (3.6-5.2) mmol/L Sodium 144.0 144 (132-148) mmol/L Chloride 122.0 H 111 H (98-107) mmol/L Glucose 148 H (65-105) mg/dl Lactate 1.8 (0.7-2.1) mmol/L FiO2 21.0 % Potassium 6.0 H* D (3.6-5.0) mmol/L Carbon Dioxide 28 (21-33) mmol/L Anion Gap 11 (10-20) BUN 15 (7-21) mg/dL Creatinine 0.7 (0.7-1.2) mg/dl Est GFR ( Amer) > 60 Est GFR (Non-Af Amer) > 60 POC Glucose (mg/dL) (65-110) mg/dL Random Glucose 206 H (70-110) mg/dL Calcium 7.0 L (8.4-10.5) mg/dL Phosphorus 2.6 (2.5-4.5) mg/dL Magnesium 1.8 (1.7-2.2) mg/dL Total Bilirubin 0.6 (0.2-1.3) mg/dL AST 93 H D (14-36) U/L ALT 306 H (7-56) U/L Alkaline Phosphatase 345 H D (38-126) U/L Total Protein 4.1 L (5.8-8.3) g/dL Albumin 1.7 L (3.0-4.8) g/dL Globulin 2.4 gm/dL Albumin/Globulin Ratio 0.7 L (1.1-1.8) Venous Blood Potassium 3.5 L (3.6-5.2) mmol/L ANCA Screen (NEGATIVE) c-ANCA Titer Proteinase 3 (PR3) (<1.0) AI p-ANCA Titer Atypical p-ANCA Titer Myeloperoxidase Ab (<1.0) AI 01/02/18 01/02/18 01/01/18 Range/Units 08:10 01:41 20:32 WBC 7.1 D (4.5-11.0) 10^3/ul RBC 3.25 L (3.5-6.1) 10^6/uL Hgb 9.1 L D (12.0-16.0) g/dL Hct 26.3 L (36.0-48.0) % MCV 80.9 D (80.0-105.0) fl MCH 28.0 (25.0-35.0) pg MCHC 34.6 (31.0-37.0) g/dl RDW 15.8 H (11.5-14.5) % Plt Count 43 L* (120.0-450.0) 10^3/uL Gran % 92.6 H (50.0-68.0) % Lymph % (Auto) 6.0 L (22.0-35.0) % [place] % (Auto) 1.4 (1.0-6.0) % Eos % (Auto) 0.0 L (1.5-5.0) % Baso % (Auto) 0.0 (0.0-3.0) % Gran # 6.53 H (1.4-6.5) Lymph # (Auto) 0.4 L (1.2-3.4) [place] # (Auto) 0.1 (0.1-0.6) Eos # (Auto) 0.0 (0.0-0.7) Baso # (Auto) 0.00 (0.0-2.0) K/mm3 Neutrophils % (Manual) 81 H (50.0-70.0) % Band Neutrophils % 7 H (0-2) % Lymphocytes % (Manual) 9 L (22.0-35.0) % Monocytes % (Manual) 1 (1.0-6.0) % Metamyelocytes % 2 % Platelet Evaluation Low (NORMAL) Poikilocytosis (manual Slight Anisocytosis (manual) Slight Carlos Cells Slight PT (9.4-12.5) SECONDS INR APTT (25.1-36.5) Seconds Fibrinogen (200-400) mg/dl D-Dimer, Quantitative (0-243) ng/mlDDU pO2 (30-55) mm/Hg VBG pH (7.32-7.43) VBG pCO2 (40-60) VBG HCO3 (21-28) mmol/l VBG Total CO2 (22-28) mmol.L VBG O2 Sat (Calc) (40-65) % VBG Base Excess (0.0-2.0) mmol/L VBG Potassium (3.6-5.2) mmol/L Sodium (132-148) mmol/L Chloride (98-107) mmol/L Glucose (65-105) mg/dl Lactate (0.7-2.1) mmol/L FiO2 % Potassium (3.6-5.0) mmol/L Carbon Dioxide (21-33) mmol/L Anion Gap (10-20) BUN (7-21) mg/dL Creatinine (0.7-1.2) mg/dl Est GFR ( Amer) Est GFR (Non-Af Amer) POC Glucose (mg/dL) 238 H 257 H (65-110) mg/dL Random Glucose (70-110) mg/dL Calcium (8.4-10.5) mg/dL Phosphorus (2.5-4.5) mg/dL Magnesium (1.7-2.2) mg/dL Total Bilirubin (0.2-1.3) mg/dL AST (14-36) U/L ALT (7-56) U/L Alkaline Phosphatase (38-126) U/L Total Protein (5.8-8.3) g/dL Albumin (3.0-4.8) g/dL Globulin gm/dL Albumin/Globulin Ratio (1.1-1.8) Venous Blood Potassium (3.6-5.2) mmol/L ANCA Screen (NEGATIVE) c-ANCA Titer Proteinase 3 (PR3) (<1.0) AI p-ANCA Titer Atypical p-ANCA Titer Myeloperoxidase Ab (<1.0) AI 01/01/18 01/01/18 12/31/17 Range/Units 19:22 18:10 11:32 WBC (4.5-11.0) 10^3/ul RBC (3.5-6.1) 10^6/uL Hgb (12.0-16.0) g/dL Hct (36.0-48.0) % MCV (80.0-105.0) fl MCH (25.0-35.0) pg MCHC (31.0-37.0) g/dl RDW (11.5-14.5) % Plt Count (120.0-450.0) 10^3/uL Gran % (50.0-68.0) % Lymph % (Auto) (22.0-35.0) % [place] % (Auto) (1.0-6.0) % Eos % (Auto) (1.5-5.0) % Baso % (Auto) (0.0-3.0) % Gran # (1.4-6.5) Lymph # (Auto) (1.2-3.4) [place] # (Auto) (0.1-0.6) Eos # (Auto) (0.0-0.7) Baso # (Auto) (0.0-2.0) K/mm3 Neutrophils % (Manual) (50.0-70.0) % Band Neutrophils % (0-2) % Lymphocytes % (Manual) (22.0-35.0) % Monocytes % (Manual) (1.0-6.0) % Metamyelocytes % % Platelet Evaluation (NORMAL) Poikilocytosis (manual Anisocytosis (manual) Carlos Cells PT (9.4-12.5) SECONDS INR APTT (25.1-36.5) Seconds Fibrinogen (200-400) mg/dl D-Dimer, Quantitative (0-243) ng/mlDDU pO2 (30-55) mm/Hg VBG pH (7.32-7.43) VBG pCO2 (40-60) VBG HCO3 (21-28) mmol/l VBG Total CO2 (22-28) mmol.L VBG O2 Sat (Calc) (40-65) % VBG Base Excess (0.0-2.0) mmol/L VBG Potassium (3.6-5.2) mmol/L Sodium (132-148) mmol/L Chloride (98-107) mmol/L Glucose (65-105) mg/dl Lactate (0.7-2.1) mmol/L FiO2 % Potassium (3.6-5.0) mmol/L Carbon Dioxide (21-33) mmol/L Anion Gap (10-20) BUN (7-21) mg/dL Creatinine (0.7-1.2) mg/dl Est GFR ( Amer) Est GFR (Non-Af Amer) POC Glucose (mg/dL) 356 H 41 L 105 (65-110) mg/dL Random Glucose (70-110) mg/dL Calcium (8.4-10.5) mg/dL Phosphorus (2.5-4.5) mg/dL Magnesium (1.7-2.2) mg/dL Total Bilirubin (0.2-1.3) mg/dL AST (14-36) U/L ALT (7-56) U/L Alkaline Phosphatase (38-126) U/L Total Protein (5.8-8.3) g/dL Albumin (3.0-4.8) g/dL Globulin gm/dL Albumin/Globulin Ratio (1.1-1.8) Venous Blood Potassium (3.6-5.2) mmol/L ANCA Screen (NEGATIVE) c-ANCA Titer Proteinase 3 (PR3) (<1.0) AI p-ANCA Titer Atypical p-ANCA Titer Myeloperoxidase Ab (<1.0) AI 12/31/17 12/30/17 Range/Units 07:46 16:15 WBC (4.5-11.0) 10^3/ul RBC (3.5-6.1) 10^6/uL Hgb (12.0-16.0) g/dL Hct (36.0-48.0) % MCV (80.0-105.0) fl MCH (25.0-35.0) pg MCHC (31.0-37.0) g/dl RDW (11.5-14.5) % Plt Count (120.0-450.0) 10^3/uL Gran % (50.0-68.0) % Lymph % (Auto) (22.0-35.0) % [place] % (Auto) (1.0-6.0) % Eos % (Auto) (1.5-5.0) % Baso % (Auto) (0.0-3.0) % Gran # (1.4-6.5) Lymph # (Auto) (1.2-3.4) [place] # (Auto) (0.1-0.6) Eos # (Auto) (0.0-0.7) Baso # (Auto) (0.0-2.0) K/mm3 Neutrophils % (Manual) (50.0-70.0) % Band Neutrophils % (0-2) % Lymphocytes % (Manual) (22.0-35.0) % Monocytes % (Manual) (1.0-6.0) % Metamyelocytes % % Platelet Evaluation (NORMAL) Poikilocytosis (manual Anisocytosis (manual) [place] Cells PT (9.4-12.5) SECONDS INR APTT (25.1-36.5) Seconds Fibrinogen (200-400) mg/dl D-Dimer, Quantitative (0-243) ng/mlDDU pO2 (30-55) mm/Hg VBG pH (7.32-7.43) VBG pCO2 (40-60) VBG HCO3 (21-28) mmol/l VBG Total CO2 (22-28) mmol.L VBG O2 Sat (Calc) (40-65) % VBG Base Excess (0.0-2.0) mmol/L VBG Potassium (3.6-5.2) mmol/L Sodium (132-148) mmol/L Chloride (98-107) mmol/L Glucose (65-105) mg/dl Lactate (0.7-2.1) mmol/L FiO2 % Potassium (3.6-5.0) mmol/L Carbon Dioxide (21-33) mmol/L Anion Gap (10-20) BUN (7-21) mg/dL Creatinine (0.7-1.2) mg/dl Est GFR ( Amer) Est GFR (Non-Af Amer) POC Glucose (mg/dL) 86 (65-110) mg/dL Random Glucose (70-110) mg/dL Calcium (8.4-10.5) mg/dL Phosphorus (2.5-4.5) mg/dL Magnesium (1.7-2.2) mg/dL Total Bilirubin (0.2-1.3) mg/dL AST (14-36) U/L ALT (7-56) U/L Alkaline Phosphatase (38-126) U/L Total Protein (5.8-8.3) g/dL Albumin (3.0-4.8) g/dL Globulin gm/dL Albumin/Globulin Ratio (1.1-1.8) Venous Blood Potassium (3.6-5.2) mmol/L ANCA Screen Negative (NEGATIVE) c-ANCA Titer TNP Proteinase 3 (PR3) <1.0 (<1.0) AI p-ANCA Titer TNP Atypical p-ANCA Titer TNP Myeloperoxidase Ab <1.0 (<1.0) AI Laboratory Results - last 24 hr 12/30/17 12/31/17 12/31/17 16:15 07:46 11:32 WBC RBC Hgb Hct MCV MCH MCHC RDW Plt Count Gran % Lymph % (Auto) [place] % (Auto) Eos % (Auto) Baso % (Auto) Gran # Lymph # (Auto) [place] # (Auto) Eos # (Auto) Baso # (Auto) Neutrophils % (Manual) Band Neutrophils % Lymphocytes % (Manual) Monocytes % (Manual) Metamyelocytes % Platelet Evaluation Poikilocytosis (manual Anisocytosis (manual) [place] Cells PT INR APTT Fibrinogen D-Dimer, Quantitative pO2 VBG pH VBG pCO2 VBG HCO3 VBG Total CO2 VBG O2 Sat (Calc) VBG Base Excess VBG Potassium Sodium Chloride Glucose Lactate FiO2 Potassium Carbon Dioxide Anion Gap BUN Creatinine Est GFR ( Amer) Est GFR (Non-Af Amer) POC Glucose (mg/dL) 86 105 Random Glucose Calcium Phosphorus Magnesium Total Bilirubin AST ALT Alkaline Phosphatase Total Protein Albumin Globulin Albumin/Globulin Ratio Venous Blood Potassium ANCA Screen Negative c-ANCA Titer TNP Proteinase 3 (PR3) <1.0 p-ANCA Titer TNP Atypical p-ANCA Titer TNP Myeloperoxidase Ab <1.0 01/01/18 01/01/18 01/01/18 18:10 19:22 20:32 WBC RBC Hgb Hct MCV MCH MCHC RDW Plt Count Gran % Lymph % (Auto) [place] % (Auto) Eos % (Auto) Baso % (Auto) Gran # Lymph # (Auto) [place] # (Auto) Eos # (Auto) Baso # (Auto) Neutrophils % (Manual) Band Neutrophils % Lymphocytes % (Manual) Monocytes % (Manual) Metamyelocytes % Platelet Evaluation Poikilocytosis (manual Anisocytosis (manual) Carlos Cells PT INR APTT Fibrinogen D-Dimer, Quantitative pO2 VBG pH VBG pCO2 VBG HCO3 VBG Total CO2 VBG O2 Sat (Calc) VBG Base Excess VBG Potassium Sodium Chloride Glucose Lactate FiO2 Potassium Carbon Dioxide Anion Gap BUN Creatinine Est GFR ( Amer) Est GFR (Non-Af Amer) POC Glucose (mg/dL) 41 L 356 H 257 H Random Glucose Calcium Phosphorus Magnesium Total Bilirubin AST ALT Alkaline Phosphatase Total Protein Albumin Globulin Albumin/Globulin Ratio Venous Blood Potassium ANCA Screen c-ANCA Titer Proteinase 3 (PR3) p-ANCA Titer Atypical p-ANCA Titer Myeloperoxidase Ab 01/02/18 01/02/18 01/02/18 01:41 08:10 08:10 WBC 7.1 D RBC 3.25 L Hgb 9.1 L D Hct 26.3 L MCV 80.9 D MCH 28.0 MCHC 34.6 RDW 15.8 H Plt Count 43 L* Gran % 92.6 H Lymph % (Auto) 6.0 L [place] % (Auto) 1.4 Eos % (Auto) 0.0 L Baso % (Auto) 0.0 Gran # 6.53 H Lymph # (Auto) 0.4 L [place] # (Auto) 0.1 Eos # (Auto) 0.0 Baso # (Auto) 0.00 Neutrophils % (Manual) 81 H Band Neutrophils % 7 H Lymphocytes % (Manual) 9 L Monocytes % (Manual) 1 Metamyelocytes % 2 Platelet Evaluation Low Poikilocytosis (manual Slight Anisocytosis (manual) Slight [place] Cells Slight PT INR APTT Fibrinogen D-Dimer, Quantitative pO2 VBG pH VBG pCO2 VBG HCO3 VBG Total CO2 VBG O2 Sat (Calc) VBG Base Excess VBG Potassium Sodium 144 Chloride 111 H Glucose Lactate FiO2 Potassium 6.0 H* D Carbon Dioxide 28 Anion Gap 11 BUN 15 Creatinine 0.7 Est GFR ( Amer) > 60 Est GFR (Non-Af Amer) > 60 POC Glucose (mg/dL) 238 H Random Glucose 206 H Calcium 7.0 L Phosphorus 2.6 Magnesium 1.8 Total Bilirubin 0.6 AST 93 H D ALT 306 H Alkaline Phosphatase 345 H D Total Protein 4.1 L Albumin 1.7 L Globulin 2.4 Albumin/Globulin Ratio 0.7 L Venous Blood Potassium ANCA Screen c-ANCA Titer Proteinase 3 (PR3) p-ANCA Titer Atypical p-ANCA Titer Myeloperoxidase Ab 01/02/18 01/02/18 01/02/18 08:10 08:10 08:17 WBC RBC Hgb Hct MCV MCH MCHC RDW Plt Count Gran % Lymph % (Auto) [place] % (Auto) Eos % (Auto) Baso % (Auto) Gran # Lymph # (Auto) [place] # (Auto) Eos # (Auto) Baso # (Auto) Neutrophils % (Manual) Band Neutrophils % Lymphocytes % (Manual) Monocytes % (Manual) Metamyelocytes % Platelet Evaluation Poikilocytosis (manual Anisocytosis (manual) Carlos Cells PT 42.0 H INR 3.56 H* APTT 70.2 H Fibrinogen D-Dimer, Quantitative pO2 44 VBG pH 7.32 VBG pCO2 35.0 L VBG HCO3 18.0 L VBG Total CO2 19.1 L VBG O2 Sat (Calc) 81.5 H VBG Base Excess -7.3 L VBG Potassium 3.5 L Sodium 144.0 Chloride 122.0 H Glucose 148 H Lactate 1.8 FiO2 21.0 Potassium Carbon Dioxide Anion Gap BUN Creatinine Est GFR ( Amer) Est GFR (Non-Af Amer) POC Glucose (mg/dL) 306 H Random Glucose Calcium Phosphorus Magnesium Total Bilirubin AST ALT Alkaline Phosphatase Total Protein Albumin Globulin Albumin/Globulin Ratio Venous Blood Potassium 3.5 L ANCA Screen c-ANCA Titer Proteinase 3 (PR3) p-ANCA Titer Atypical p-ANCA Titer Myeloperoxidase Ab 01/02/18 01/02/18 08:30 11:29 WBC RBC Hgb Hct MCV MCH MCHC RDW Plt Count Gran % Lymph % (Auto) [place] % (Auto) Eos % (Auto) Baso % (Auto) Gran # Lymph # (Auto) [place] # (Auto) Eos # (Auto) Baso # (Auto) Neutrophils % (Manual) Band Neutrophils % Lymphocytes % (Manual) Monocytes % (Manual) Metamyelocytes % Platelet Evaluation Poikilocytosis (manual Anisocytosis (manual) [place] Cells PT INR APTT Fibrinogen 161 L D-Dimer, Quantitative 1293 H pO2 VBG pH VBG pCO2 VBG HCO3 VBG Total CO2 VBG O2 Sat (Calc) VBG Base Excess VBG Potassium Sodium Chloride Glucose Lactate FiO2 Potassium Carbon Dioxide Anion Gap BUN Creatinine Est GFR ( Amer) Est GFR (Non-Af Amer) POC Glucose (mg/dL) 111 H Random Glucose Calcium Phosphorus Magnesium Total Bilirubin AST ALT Alkaline Phosphatase Total Protein Albumin Globulin Albumin/Globulin Ratio Venous Blood Potassium ANCA Screen c-ANCA Titer Proteinase 3 (PR3) p-ANCA Titer Atypical p-ANCA Titer Myeloperoxidase Ab Fingerstick Blood Sugar Results: 306 Assessment/Plan - Assessment and Plan (Free Text) Assessment: 42F with PMH developmental delay, presented to [facility] for seizure/AMS, initially admitted to ICU for HCAP, found to have gram negative bacteremia, progressed to ARDS, hypoxemic respiratory failure. Patient remains intubated. Patient not requiring pressors currently. Today, patient's hgb dropped, elevated PT/PTT, low fibrinogen, concerning for DIC. Peripheral blood sent for smear review, awaiting call back from pathology: Neuro: intubated, patient mildly lethargic off fentanyl drip. Patient opens eyes spontaneously, moving all extremities. -Ammonia level normal -CT Head negative -seizure, aspiration and high fall risk precautions -EEG wnl -on keppra 500 IV Q12 -Neurology on board -monitor Cardio: -off pressors, BP 117/81 -Maintain Map >65 -On stress dose steroids. -monitor Lungs: -Hypoxemic respiratory acidosis 2/2 ARDS (worsening HCAP vs Aspiration pneumonia ) -Remains intubated, on PRVC mode, TV 300, RR 25, PEEP 10, 60% FiO2. -CXR today shows worsening b/l infiltrates, R>L -C/w Zosyn (Blood cultures show gram neg nichole) -Continue with HOB elevation> 35 degrees, aspiration precautions. -Continue with protected lung ventilation strategies with TV of 3-6 ml/kg of IBW , plateau pressure less than 35, bronchodilators, keep oxygenation above 90%, pulm toileting Nephro: -Replace lytes, maintain euvolemia. Continue to monitor. -Avoid nephrotoxic agents, hypochloremia -Cr 0.7 -monitor GI: -AST/ALT improving; Alk phos Improving -started NGT feeds -monitor Hepatic Workup: -Smooth muscle Ab negative -ANCA screen negative -Alpha1 Antitrypsin pending -Anti Mitochondrial Ab negative -No hepatic thrombosis on duplex -Patient is cachectic with BMI of 10, concern for chronic malnutrition -CT abd/chest shows severe edema in mesenteric fat, esophagitis and pelvis ascites. The swelling is consistent with severe malnutrition with low albumin -hepatitis panel is negative -CA-125 wnl -GI prophylaxis with protonix -GI on consult, Dr. Rizo Heme: -Hgb 9.1 today (dropped from 11.8 yesterday), elevated PT/PTT, decreased fibronogen. decreased platelets. f/u peripheral smear. Concern for DIC. -not actively bleeding - GI//catheters -pancytopenia from sepsis, DIC? -closely monitor : -TVUS unremarkable for ovaries -CA 125 normal Endo: Maintain euglycemia. -c-peptide wnl -TSH WNL ID: -HCAP PNA vs Aspiration PNA -Gram neg bacteremia -On Zosyn -WBC wnl -Repeat Blood Cx 06/06 12/28 NTD -Blood Cx 05/06 12/25 shows GNR -Urine Cx negative -HIV Panel negative -ID on consult, Dr. Miles GI/DVT Ppx: Protonix IVP, SCDs do not fit Patient was seen, examined, and discussed w/ attending physician Dr. Cazares. Zaina Velarde, PGY2 <Silver Cazares - Last Filed: 01/02/18 14:47> CCU Objective - Vital Signs / Intake & Output Vital Signs (Last 4 hours): Vital Signs Temp Pulse BP Pulse Ox 01/02/18 13:29 130/101 H 01/02/18 12:00 83 01/02/18 11:44 96.1 F L 67 01/02/18 11:00 96.4 F L 79 100 Intake and Output (Last 8hrs): Intake & Output 01/01/18 01/02/18 01/02/18 22:59 06:59 14:59 Intake Total 0 1150 Output Total 450 800 Balance -450 350 Weight 69 lb Intake: IV 0 1150 Right Hand 1150 Output: Urine 450 800 Urethral (Jimenez) 450 800 Other: # Bowel Movements 1 - Medications Active Medications: Active Medications Generic Name Dose Route Start Last Admin Trade Name Freq PRN Reason Stop Dose Admin Albumin Human 12.5 gm 01/02/18 16:00 Albumin Human 25% (12.5 Gm/50 Ml) IV Q4 NASH Hydrocortisone Sodium Succinate 50 mg 01/02/18 08:15 01/02/18 09:08 Solu-Cortef IVP 01/03/18 08:16 50 mg Q12H ANSH Administration Levetiracetam 500 mg in 100 mls @ 460 mls/hr 12/27/17 07:57 01/02/18 09:06 Keppra 500mg Ivpb IV 460 mls/hr Q12 NASH Administration Piperacillin Sod/Tazobactam Sod 100 mls @ 200 mls/hr 12/30/17 19:55 01/02/18 12:00 Zosyn 3.375 In Ns 100ml IVPB 01/08/18 19:56 200 mls/hr Q6 NASH Administration Protocol Fentanyl Citrate 1,000 mcg in 100 mls @ 2 mls/hr 01/01/18 05:31 01/01/18 22: 30 Fentanyl Citrate/Sodium Chloride 1 Mg/100 Ml IV 20 mcg/hr .Q24H PRN 2 mls/hr TITRATE PER MD ORDER Administration Protocol 20 MCG/HR Vasopressin 20 units/ Sodium 101 mls @ 9.09 mls/hr 01/01/18 11:30 01/02/18 13 :10 Chloride IV Not Given .[id number] [facility] Protocol 0.03 U/MIN Norepinephrine Bitartrate 8 mg 508 mls @ 15.24 mls/hr 01/01/18 20:12 / Sodium Chloride IV .Q24H PRN TITRATE PER MD ORDER Protocol 4 MCG/MIN Insulin Human Regular 0 units 01/01/18 22:00 01/02/18 13:07 Humulin R High SC Not Given ACHS [facility] Protocol Levalbuterol HCl 1.25 mg 12/31/17 18:28 01/02/18 14:32 Xopenex IH 1.25 mg [id number] PRN Administration Shortness of Breath Pantoprazole Sodium 40 mg 12/26/17 10:00 01/02/18 09:07 Protonix Inj IVP 40 mg DAILY NASH Administration Potassium Phos/Sodium Phos 1 pkt 12/31/17 14:00 12/31/17 18:50 Neutra-Phos PO 1 pkt TID NASH Administration - Patient Studies Lab Studies: Microbiology Studies 12/28/17 17:00 Blood Culture - Preliminary Blood NO GROWTH AFTER 4 DAYS 12/28/17 16:30 Blood Culture - Preliminary Blood NO GROWTH AFTER 4 DAYS Lab Studies 01/02/18 01/02/18 01/02/18 Range/Units 13:28 12:30 12:30 WBC (4.5-11.0) 10^3/ul RBC (3.5-6.1) 10^6/uL Hgb (12.0-16.0) g/dL Hct (36.0-48.0) % MCV (80.0-105.0) fl MCH (25.0-35.0) pg MCHC (31.0-37.0) g/dl RDW (11.5-14.5) % Plt Count (120.0-450.0) 10^3/uL Gran % (50.0-68.0) % Lymph % (Auto) (22.0-35.0) % [place] % (Auto) (1.0-6.0) % Eos % (Auto) (1.5-5.0) % Baso % (Auto) (0.0-3.0) % Gran # (1.4-6.5) Lymph # (Auto) (1.2-3.4) [place] # (Auto) (0.1-0.6) Eos # (Auto) (0.0-0.7) Baso # (Auto) (0.0-2.0) K/mm3 Neutrophils % (Manual) (50.0-70.0) % Band Neutrophils % (0-2) % Lymphocytes % (Manual) (22.0-35.0) % Monocytes % (Manual) (1.0-6.0) % Metamyelocytes % % Platelet Evaluation (NORMAL) Poikilocytosis (manual Anisocytosis (manual) [place] Cells PT (9.4-12.5) SECONDS INR APTT (25.1-36.5) Seconds Fibrinogen (200-400) mg/dl Fibrin Degrad Products >40 ug/ml (< 10 ug/mL) D-Dimer, Quantitative (0-243) ng/mlDDU pO2 (30-55) mm/Hg VBG pH (7.32-7.43) VBG pCO2 (40-60) VBG HCO3 (21-28) mmol/l VBG Total CO2 (22-28) mmol.L VBG O2 Sat (Calc) (40-65) % VBG Base Excess (0.0-2.0) mmol/L VBG Potassium (3.6-5.2) mmol/L Sodium 147 (132-148) mmol/L Chloride 111 H (98-107) mmol/L Glucose (65-105) mg/dl Lactate (0.7-2.1) mmol/L FiO2 % Potassium 4.4 (3.6-5.0) mmol/L Carbon Dioxide 26 (21-33) mmol/L Anion Gap 14 (10-20) BUN 15 (7-21) mg/dL Creatinine 0.7 (0.7-1.2) mg/dl Est GFR ( Amer) > 60 Est GFR (Non-Af Amer) > 60 POC Glucose (mg/dL) (65-110) mg/dL Random Glucose 87 (70-110) mg/dL Calcium 7.7 L (8.4-10.5) mg/dL Phosphorus (2.5-4.5) mg/dL Magnesium (1.7-2.2) mg/dL Total Bilirubin 0.8 (0.2-1.3) mg/dL AST 113 H D (14-36) U/L ALT 349 H (7-56) U/L Alkaline Phosphatase 427 H D (38-126) U/L Total Protein 4.8 L (5.8-8.3) g/dL Albumin 2.3 L (3.0-4.8) g/dL Globulin 2.6 gm/dL Albumin/Globulin Ratio 0.9 L (1.1-1.8) Venous Blood Potassium (3.6-5.2) mmol/L Urine Color Yellow (YELLOW) Urine Appearance Clear (CLEAR) Urine pH 6.0 (4.7-8.0) Ur Specific [place] 1.010 (1.005-1.035) Urine Protein Trace H (<30 mg/dL) mg/dL Urine Glucose (UA) Negative (NEGATIVE) mg/dL Urine Ketones Negative (NEGATIVE) mg/dL Urine Blood Moderate H (NEGATIVE) Urine Nitrate Negative (NEGATIVE) Urine Bilirubin Negative (NEGATIVE) Urine Urobilinogen 0.2 (<1 E.U./dL) E.U./dL Ur Leukocyte Esterase Negative (NEGATIVE) [place]/uL Urine RBC 1 - 3 (0-2) /hpf Urine WBC 0 - 2 (0-6) /hpf Ur Epithelial Cells 0 - 2 (0-5) /hpf Urine Bacteria Small (NEG) Coarse Granular Casts Trace H (0-2) /hpf Urine Other U[place]ast ANCA Screen (NEGATIVE) c-ANCA Titer Proteinase 3 (PR3) (<1.0) AI p-ANCA Titer Atypical p-ANCA Titer Myeloperoxidase Ab (<1.0) AI 01/02/18 01/02/18 01/02/18 Range/Units 11:29 08:30 08:17 WBC (4.5-11.0) 10^3/ul RBC (3.5-6.1) 10^6/uL Hgb (12.0-16.0) g/dL Hct (36.0-48.0) % MCV (80.0-105.0) fl MCH (25.0-35.0) pg MCHC (31.0-37.0) g/dl RDW (11.5-14.5) % Plt Count (120.0-450.0) 10^3/uL Gran % (50.0-68.0) % Lymph % (Auto) (22.0-35.0) % [place] % (Auto) (1.0-6.0) % Eos % (Auto) (1.5-5.0) % Baso % (Auto) (0.0-3.0) % Gran # (1.4-6.5) Lymph # (Auto) (1.2-3.4) [place] # (Auto) (0.1-0.6) Eos # (Auto) (0.0-0.7) Baso # (Auto) (0.0-2.0) K/mm3 Neutrophils % (Manual) (50.0-70.0) % Band Neutrophils % (0-2) % Lymphocytes % (Manual) (22.0-35.0) % Monocytes % (Manual) (1.0-6.0) % Metamyelocytes % % Platelet Evaluation (NORMAL) Poikilocytosis (manual Anisocytosis (manual) [place] Cells PT (9.4-12.5) SECONDS INR APTT (25.1-36.5) Seconds Fibrinogen 161 L (200-400) mg/dl Fibrin Degrad Products (< 10 ug/mL) D-Dimer, Quantitative 1293 H (0-243) ng/mlDDU pO2 (30-55) mm/Hg VBG pH (7.32-7.43) VBG pCO2 (40-60) VBG HCO3 (21-28) mmol/l VBG Total CO2 (22-28) mmol.L VBG O2 Sat (Calc) (40-65) % VBG Base Excess (0.0-2.0) mmol/L VBG Potassium (3.6-5.2) mmol/L Sodium (132-148) mmol/L Chloride (98-107) mmol/L Glucose (65-105) mg/dl Lactate (0.7-2.1) mmol/L FiO2 % Potassium (3.6-5.0) mmol/L Carbon Dioxide (21-33) mmol/L Anion Gap (10-20) BUN (7-21) mg/dL Creatinine (0.7-1.2) mg/dl Est GFR ( Amer) Est GFR (Non-Af Amer) POC Glucose (mg/dL) 111 H 306 H (65-110) mg/dL Random Glucose (70-110) mg/dL Calcium (8.4-10.5) mg/dL Phosphorus (2.5-4.5) mg/dL Magnesium (1.7-2.2) mg/dL Total Bilirubin (0.2-1.3) mg/dL AST (14-36) U/L ALT (7-56) U/L Alkaline Phosphatase (38-126) U/L Total Protein (5.8-8.3) g/dL Albumin (3.0-4.8) g/dL Globulin gm/dL Albumin/Globulin Ratio (1.1-1.8) Venous Blood Potassium (3.6-5.2) mmol/L Urine Color (YELLOW) Urine Appearance (CLEAR) Urine pH (4.7-8.0) Ur Specific [place] (1.005-1.035) Urine Protein (<30 mg/dL) mg/dL Urine Glucose (UA) (NEGATIVE) mg/dL Urine Ketones (NEGATIVE) mg/dL Urine Blood (NEGATIVE) Urine Nitrate (NEGATIVE) Urine Bilirubin (NEGATIVE) Urine Urobilinogen (<1 E.U./dL) E.U./dL Ur Leukocyte Esterase (NEGATIVE) [place]/uL Urine RBC (0-2) /hpf Urine WBC (0-6) /hpf Ur Epithelial Cells (0-5) /hpf Urine Bacteria (NEG) Coarse Granular Casts (0-2) /hpf Urine Other ANCA Screen (NEGATIVE) c-ANCA Titer Proteinase 3 (PR3) (<1.0) AI p-ANCA Titer Atypical p-ANCA Titer Myeloperoxidase Ab (<1.0) AI 01/02/18 01/02/18 01/02/18 Range/Units 08:10 08:10 08:10 WBC (4.5-11.0) 10^3/ul RBC (3.5-6.1) 10^6/uL Hgb (12.0-16.0) g/dL Hct (36.0-48.0) % MCV (80.0-105.0) fl MCH (25.0-35.0) pg MCHC (31.0-37.0) g/dl RDW (11.5-14.5) % Plt Count (120.0-450.0) 10^3/uL Gran % (50.0-68.0) % Lymph % (Auto) (22.0-35.0) % [place] % (Auto) (1.0-6.0) % Eos % (Auto) (1.5-5.0) % Baso % (Auto) (0.0-3.0) % Gran # (1.4-6.5) Lymph # (Auto) (1.2-3.4) [place] # (Auto) (0.1-0.6) Eos # (Auto) (0.0-0.7) Baso # (Auto) (0.0-2.0) K/mm3 Neutrophils % (Manual) (50.0-70.0) % Band Neutrophils % (0-2) % Lymphocytes % (Manual) (22.0-35.0) % Monocytes % (Manual) (1.0-6.0) % Metamyelocytes % % Platelet Evaluation (NORMAL) Poikilocytosis (manual Anisocytosis (manual) Carlos Cells PT 42.0 H (9.4-12.5) SECONDS INR 3.56 H* APTT 70.2 H (25.1-36.5) Seconds Fibrinogen (200-400) mg/dl Fibrin Degrad Products (< 10 ug/mL) D-Dimer, Quantitative (0-243) ng/mlDDU pO2 44 (30-55) mm/Hg VBG pH 7.32 (7.32-7.43) VBG pCO2 35.0 L (40-60) VBG HCO3 18.0 L (21-28) mmol/l VBG Total CO2 19.1 L (22-28) mmol.L VBG O2 Sat (Calc) 81.5 H (40-65) % VBG Base Excess -7.3 L (0.0-2.0) mmol/L VBG Potassium 3.5 L (3.6-5.2) mmol/L Sodium 144.0 144 (132-148) mmol/L Chloride 122.0 H 111 H (98-107) mmol/L Glucose 148 H (65-105) mg/dl Lactate 1.8 (0.7-2.1) mmol/L FiO2 21.0 % Potassium 6.0 H* D (3.6-5.0) mmol/L Carbon Dioxide 28 (21-33) mmol/L Anion Gap 11 (10-20) BUN 15 (7-21) mg/dL Creatinine 0.7 (0.7-1.2) mg/dl Est GFR ( Amer) > 60 Est GFR (Non-Af Amer) > 60 POC Glucose (mg/dL) (65-110) mg/dL Random Glucose 206 H (70-110) mg/dL Calcium 7.0 L (8.4-10.5) mg/dL Phosphorus 2.6 (2.5-4.5) mg/dL Magnesium 1.8 (1.7-2.2) mg/dL Total Bilirubin 0.6 (0.2-1.3) mg/dL AST 93 H D (14-36) U/L ALT 306 H (7-56) U/L Alkaline Phosphatase 345 H D (38-126) U/L Total Protein 4.1 L (5.8-8.3) g/dL Albumin 1.7 L (3.0-4.8) g/dL Globulin 2.4 gm/dL Albumin/Globulin Ratio 0.7 L (1.1-1.8) Venous Blood Potassium 3.5 L (3.6-5.2) mmol/L Urine Color (YELLOW) Urine Appearance (CLEAR) Urine pH (4.7-8.0) Ur Specific [place] (1.005-1.035) Urine Protein (<30 mg/dL) mg/dL Urine Glucose (UA) (NEGATIVE) mg/dL Urine Ketones (NEGATIVE) mg/dL Urine Blood (NEGATIVE) Urine Nitrate (NEGATIVE) Urine Bilirubin (NEGATIVE) Urine Urobilinogen (<1 E.U./dL) E.U./dL Ur Leukocyte Esterase (NEGATIVE) [place]/uL Urine RBC (0-2) /hpf Urine WBC (0-6) /hpf Ur Epithelial Cells (0-5) /hpf Urine Bacteria (NEG) Coarse Granular Casts (0-2) /hpf Urine Other ANCA Screen (NEGATIVE) c-ANCA Titer Proteinase 3 (PR3) (<1.0) AI p-ANCA Titer Atypical p-ANCA Titer Myeloperoxidase Ab (<1.0) AI 01/02/18 01/02/18 01/01/18 Range/Units 08:10 01:41 20:32 WBC 7.1 D (4.5-11.0) 10^3/ul RBC 3.25 L (3.5-6.1) 10^6/uL Hgb 9.1 L D (12.0-16.0) g/dL Hct 26.3 L (36.0-48.0) % MCV 80.9 D (80.0-105.0) fl MCH 28.0 (25.0-35.0) pg MCHC 34.6 (31.0-37.0) g/dl RDW 15.8 H (11.5-14.5) % Plt Count 43 L* (120.0-450.0) 10^3/uL Gran % 92.6 H (50.0-68.0) % Lymph % (Auto) 6.0 L (22.0-35.0) % [place] % (Auto) 1.4 (1.0-6.0) % Eos % (Auto) 0.0 L (1.5-5.0) % Baso % (Auto) 0.0 (0.0-3.0) % Gran # 6.53 H (1.4-6.5) Lymph # (Auto) 0.4 L (1.2-3.4) [place] # (Auto) 0.1 (0.1-0.6) Eos # (Auto) 0.0 (0.0-0.7) Baso # (Auto) 0.00 (0.0-2.0) K/mm3 Neutrophils % (Manual) 81 H (50.0-70.0) % Band Neutrophils % 7 H (0-2) % Lymphocytes % (Manual) 9 L (22.0-35.0) % Monocytes % (Manual) 1 (1.0-6.0) % Metamyelocytes % 2 % Platelet Evaluation Low (NORMAL) Poikilocytosis (manual Slight Anisocytosis (manual) Slight [place] Cells Slight PT (9.4-12.5) SECONDS INR APTT (25.1-36.5) Seconds Fibrinogen (200-400) mg/dl Fibrin Degrad Products (< 10 ug/mL) D-Dimer, Quantitative (0-243) ng/mlDDU pO2 (30-55) mm/Hg VBG pH (7.32-7.43) VBG pCO2 (40-60) VBG HCO3 (21-28) mmol/l VBG Total CO2 (22-28) mmol.L VBG O2 Sat (Calc) (40-65) % VBG Base Excess (0.0-2.0) mmol/L VBG Potassium (3.6-5.2) mmol/L Sodium (132-148) mmol/L Chloride (98-107) mmol/L Glucose (65-105) mg/dl Lactate (0.7-2.1) mmol/L FiO2 % Potassium (3.6-5.0) mmol/L Carbon Dioxide (21-33) mmol/L Anion Gap (10-20) BUN (7-21) mg/dL Creatinine (0.7-1.2) mg/dl Est GFR ( Amer) Est GFR (Non-Af Amer) POC Glucose (mg/dL) 238 H 257 H (65-110) mg/dL Random Glucose (70-110) mg/dL Calcium (8.4-10.5) mg/dL Phosphorus (2.5-4.5) mg/dL Magnesium (1.7-2.2) mg/dL Total Bilirubin (0.2-1.3) mg/dL AST (14-36) U/L ALT (7-56) U/L Alkaline Phosphatase (38-126) U/L Total Protein (5.8-8.3) g/dL Albumin (3.0-4.8) g/dL Globulin gm/dL Albumin/Globulin Ratio (1.1-1.8) Venous Blood Potassium (3.6-5.2) mmol/L Urine Color (YELLOW) Urine Appearance (CLEAR) Urine pH (4.7-8.0) Ur Specific [place] (1.005-1.035) Urine Protein (<30 mg/dL) mg/dL Urine Glucose (UA) (NEGATIVE) mg/dL Urine Ketones (NEGATIVE) mg/dL Urine Blood (NEGATIVE) Urine Nitrate (NEGATIVE) Urine Bilirubin (NEGATIVE) Urine Urobilinogen (<1 E.U./dL) E.U./dL Ur Leukocyte Esterase (NEGATIVE) [place]/uL Urine RBC (0-2) /hpf Urine WBC (0-6) /hpf Ur Epithelial Cells (0-5) /hpf Urine Bacteria (NEG) Coarse Granular Casts (0-2) /hpf Urine Other ANCA Screen (NEGATIVE) c-ANCA Titer Proteinase 3 (PR3) (<1.0) AI p-ANCA Titer Atypical p-ANCA Titer Myeloperoxidase Ab (<1.0) AI 01/01/18 01/01/18 12/30/17 Range/Units 19:22 18:10 16:15 WBC (4.5-11.0) 10^3/ul RBC (3.5-6.1) 10^6/uL Hgb (12.0-16.0) g/dL Hct (36.0-48.0) % MCV (80.0-105.0) fl MCH (25.0-35.0) pg MCHC (31.0-37.0) g/dl RDW (11.5-14.5) % Plt Count (120.0-450.0) 10^3/uL Gran % (50.0-68.0) % Lymph % (Auto) (22.0-35.0) % [place] % (Auto) (1.0-6.0) % Eos % (Auto) (1.5-5.0) % Baso % (Auto) (0.0-3.0) % Gran # (1.4-6.5) Lymph # (Auto) (1.2-3.4) [place] # (Auto) (0.1-0.6) Eos # (Auto) (0.0-0.7) Baso # (Auto) (0.0-2.0) K/mm3 Neutrophils % (Manual) (50.0-70.0) % Band Neutrophils % (0-2) % Lymphocytes % (Manual) (22.0-35.0) % Monocytes % (Manual) (1.0-6.0) % Metamyelocytes % % Platelet Evaluation (NORMAL) Poikilocytosis (manual Anisocytosis (manual) [place] Cells PT (9.4-12.5) SECONDS INR APTT (25.1-36.5) Seconds Fibrinogen (200-400) mg/dl Fibrin Degrad Products (< 10 ug/mL) D-Dimer, Quantitative (0-243) ng/mlDDU pO2 (30-55) mm/Hg VBG pH (7.32-7.43) VBG pCO2 (40-60) VBG HCO3 (21-28) mmol/l VBG Total CO2 (22-28) mmol.L VBG O2 Sat (Calc) (40-65) % VBG Base Excess (0.0-2.0) mmol/L VBG Potassium (3.6-5.2) mmol/L Sodium (132-148) mmol/L Chloride (98-107) mmol/L Glucose (65-105) mg/dl Lactate (0.7-2.1) mmol/L FiO2 % Potassium (3.6-5.0) mmol/L Carbon Dioxide (21-33) mmol/L Anion Gap (10-20) BUN (7-21) mg/dL Creatinine (0.7-1.2) mg/dl Est GFR ( Amer) Est GFR (Non-Af Amer) POC Glucose (mg/dL) 356 H 41 L (65-110) mg/dL Random Glucose (70-110) mg/dL Calcium (8.4-10.5) mg/dL Phosphorus (2.5-4.5) mg/dL Magnesium (1.7-2.2) mg/dL Total Bilirubin (0.2-1.3) mg/dL AST (14-36) U/L ALT (7-56) U/L Alkaline Phosphatase (38-126) U/L Total Protein (5.8-8.3) g/dL Albumin (3.0-4.8) g/dL Globulin gm/dL Albumin/Globulin Ratio (1.1-1.8) Venous Blood Potassium (3.6-5.2) mmol/L Urine Color (YELLOW) Urine Appearance (CLEAR) Urine pH (4.7-8.0) Ur Specific [place] (1.005-1.035) Urine Protein (<30 mg/dL) mg/dL Urine Glucose (UA) (NEGATIVE) mg/dL Urine Ketones (NEGATIVE) mg/dL Urine Blood (NEGATIVE) Urine Nitrate (NEGATIVE) Urine Bilirubin (NEGATIVE) Urine Urobilinogen (<1 E.U./dL) E.U./dL Ur Leukocyte Esterase (NEGATIVE) [place]/uL Urine RBC (0-2) /hpf Urine WBC (0-6) /hpf Ur Epithelial Cells (0-5) /hpf Urine Bacteria (NEG) Coarse Granular Casts (0-2) /hpf Urine Other ANCA Screen Negative (NEGATIVE) c-ANCA Titer TNP Proteinase 3 (PR3) <1.0 (<1.0) AI p-ANCA Titer TNP Atypical p-ANCA Titer TNP Myeloperoxidase Ab <1.0 (<1.0) AI Laboratory Results - last 24 hr 12/30/17 01/01/18 01/01/18 16:15 18:10 19:22 WBC RBC Hgb Hct MCV MCH MCHC RDW Plt Count Gran % Lymph % (Auto) [place] % (Auto) Eos % (Auto) Baso % (Auto) Gran # Lymph # (Auto) [place] # (Auto) Eos # (Auto) Baso # (Auto) Neutrophils % (Manual) Band Neutrophils % Lymphocytes % (Manual) Monocytes % (Manual) Metamyelocytes % Platelet Evaluation Poikilocytosis (manual Anisocytosis (manual) [place] Cells PT INR APTT Fibrinogen Fibrin Degrad Products D-Dimer, Quantitative pO2 VBG pH VBG pCO2 VBG HCO3 VBG Total CO2 VBG O2 Sat (Calc) VBG Base Excess VBG Potassium Sodium Chloride Glucose Lactate FiO2 Potassium Carbon Dioxide Anion Gap BUN Creatinine Est GFR ( Amer) Est GFR (Non-Af Amer) POC Glucose (mg/dL) 41 L 356 H Random Glucose Calcium Phosphorus Magnesium Total Bilirubin AST ALT Alkaline Phosphatase Total Protein Albumin Globulin Albumin/Globulin Ratio Venous Blood Potassium Urine Color Urine Appearance Urine pH Ur Specific [place] Urine Protein Urine Glucose (UA) Urine Ketones Urine Blood Urine Nitrate Urine Bilirubin Urine Urobilinogen Ur Leukocyte Esterase Urine RBC Urine WBC Ur Epithelial Cells Urine Bacteria Coarse Granular Casts Urine Other ANCA Screen Negative c-ANCA Titer TNP Proteinase 3 (PR3) <1.0 p-ANCA Titer TNP Atypical p-ANCA Titer TNP Myeloperoxidase Ab <1.0 01/01/18 01/02/18 01/02/18 20:32 01:41 08:10 WBC 7.1 D RBC 3.25 L Hgb 9.1 L D Hct 26.3 L MCV 80.9 D MCH 28.0 MCHC 34.6 RDW 15.8 H Plt Count 43 L* Gran % 92.6 H Lymph % (Auto) 6.0 L [place] % (Auto) 1.4 Eos % (Auto) 0.0 L Baso % (Auto) 0.0 Gran # 6.53 H Lymph # (Auto) 0.4 L [place] # (Auto) 0.1 Eos # (Auto) 0.0 Baso # (Auto) 0.00 Neutrophils % (Manual) 81 H Band Neutrophils % 7 H Lymphocytes % (Manual) 9 L Monocytes % (Manual) 1 Metamyelocytes % 2 Platelet Evaluation Low Poikilocytosis (manual Slight Anisocytosis (manual) Slight [place] Cells Slight PT INR APTT Fibrinogen Fibrin Degrad Products D-Dimer, Quantitative pO2 VBG pH VBG pCO2 VBG HCO3 VBG Total CO2 VBG O2 Sat (Calc) VBG Base Excess VBG Potassium Sodium Chloride Glucose Lactate FiO2 Potassium Carbon Dioxide Anion Gap BUN Creatinine Est GFR ( Amer) Est GFR (Non-Af Amer) POC Glucose (mg/dL) 257 H 238 H Random Glucose Calcium Phosphorus Magnesium Total Bilirubin AST ALT Alkaline Phosphatase Total Protein Albumin Globulin Albumin/Globulin Ratio Venous Blood Potassium Urine Color Urine Appearance Urine pH Ur Specific [place] Urine Protein Urine Glucose (UA) Urine Ketones Urine Blood Urine Nitrate Urine Bilirubin Urine Urobilinogen Ur Leukocyte Esterase Urine RBC Urine WBC Ur Epithelial Cells Urine Bacteria Coarse Granular Casts Urine Other ANCA Screen c-ANCA Titer Proteinase 3 (PR3) p-ANCA Titer Atypical p-ANCA Titer Myeloperoxidase Ab 01/02/18 01/02/18 01/02/18 08:10 08:10 08:10 WBC RBC Hgb Hct MCV MCH MCHC RDW Plt Count Gran % Lymph % (Auto) [place] % (Auto) Eos % (Auto) Baso % (Auto) Gran # Lymph # (Auto) [place] # (Auto) Eos # (Auto) Baso # (Auto) Neutrophils % (Manual) Band Neutrophils % Lymphocytes % (Manual) Monocytes % (Manual) Metamyelocytes % Platelet Evaluation Poikilocytosis (manual Anisocytosis (manual) [place] Cells PT 42.0 H INR 3.56 H* APTT 70.2 H Fibrinogen Fibrin Degrad Products D-Dimer, Quantitative pO2 44 VBG pH 7.32 VBG pCO2 35.0 L VBG HCO3 18.0 L VBG Total CO2 19.1 L VBG O2 Sat (Calc) 81.5 H VBG Base Excess -7.3 L VBG Potassium 3.5 L Sodium 144 144.0 Chloride 111 H 122.0 H Glucose 148 H Lactate 1.8 FiO2 21.0 Potassium 6.0 H* D Carbon Dioxide 28 Anion Gap 11 BUN 15 Creatinine 0.7 Est GFR ( Amer) > 60 Est GFR (Non-Af Amer) > 60 POC Glucose (mg/dL) Random Glucose 206 H Calcium 7.0 L Phosphorus 2.6 Magnesium 1.8 Total Bilirubin 0.6 AST 93 H D ALT 306 H Alkaline Phosphatase 345 H D Total Protein 4.1 L Albumin 1.7 L Globulin 2.4 Albumin/Globulin Ratio 0.7 L Venous Blood Potassium 3.5 L Urine Color Urine Appearance Urine pH Ur Specific [place] Urine Protein Urine Glucose (UA) Urine Ketones Urine Blood Urine Nitrate Urine Bilirubin Urine Urobilinogen Ur Leukocyte Esterase Urine RBC Urine WBC Ur Epithelial Cells Urine Bacteria Coarse Granular Casts Urine Other ANCA Screen c-ANCA Titer Proteinase 3 (PR3) p-ANCA Titer Atypical p-ANCA Titer Myeloperoxidase Ab 01/02/18 01/02/18 01/02/18 08:17 08:30 11:29 WBC RBC Hgb Hct MCV MCH MCHC RDW Plt Count Gran % Lymph % (Auto) [place] % (Auto) Eos % (Auto) Baso % (Auto) Gran # Lymph # (Auto) [place] # (Auto) Eos # (Auto) Baso # (Auto) Neutrophils % (Manual) Band Neutrophils % Lymphocytes % (Manual) Monocytes % (Manual) Metamyelocytes % Platelet Evaluation Poikilocytosis (manual Anisocytosis (manual) Carlos Cells PT INR APTT Fibrinogen 161 L Fibrin Degrad Products D-Dimer, Quantitative 1293 H pO2 VBG pH VBG pCO2 VBG HCO3 VBG Total CO2 VBG O2 Sat (Calc) VBG Base Excess VBG Potassium Sodium Chloride Glucose Lactate FiO2 Potassium Carbon Dioxide Anion Gap BUN Creatinine Est GFR ( Amer) Est GFR (Non-Af Amer) POC Glucose (mg/dL) 306 H 111 H Random Glucose Calcium Phosphorus Magnesium Total Bilirubin AST ALT Alkaline Phosphatase Total Protein Albumin Globulin Albumin/Globulin Ratio Venous Blood Potassium Urine Color Urine Appearance Urine pH Ur Specific [place] Urine Protein Urine Glucose (UA) Urine Ketones Urine Blood Urine Nitrate Urine Bilirubin Urine Urobilinogen Ur Leukocyte Esterase Urine RBC Urine WBC Ur Epithelial Cells Urine Bacteria Coarse Granular Casts Urine Other ANCA Screen c-ANCA Titer Proteinase 3 (PR3) p-ANCA Titer Atypical p-ANCA Titer Myeloperoxidase Ab 01/02/18 01/02/18 01/02/18 12:30 12:30 13:28 WBC RBC Hgb Hct MCV MCH MCHC RDW Plt Count Gran % Lymph % (Auto) [place] % (Auto) Eos % (Auto) Baso % (Auto) Gran # Lymph # (Auto) [place] # (Auto) Eos # (Auto) Baso # (Auto) Neutrophils % (Manual) Band Neutrophils % Lymphocytes % (Manual) Monocytes % (Manual) Metamyelocytes % Platelet Evaluation Poikilocytosis (manual Anisocytosis (manual) [place] Cells PT INR APTT Fibrinogen Fibrin Degrad Products >40 ug/ml D-Dimer, Quantitative pO2 VBG pH VBG pCO2 VBG HCO3 VBG Total CO2 VBG O2 Sat (Calc) VBG Base Excess VBG Potassium Sodium 147 Chloride 111 H Glucose Lactate FiO2 Potassium 4.4 Carbon Dioxide 26 Anion Gap 14 BUN 15 Creatinine 0.7 Est GFR ( Amer) > 60 Est GFR (Non-Af Amer) > 60 POC Glucose (mg/dL) Random Glucose 87 Calcium 7.7 L Phosphorus Magnesium Total Bilirubin 0.8 AST 113 H D ALT 349 H Alkaline Phosphatase 427 H D Total Protein 4.8 L Albumin 2.3 L Globulin 2.6 Albumin/Globulin Ratio 0.9 L Venous Blood Potassium Urine Color Yellow Urine Appearance Clear Urine pH 6.0 Ur Specific [place] 1.010 Urine Protein Trace H Urine Glucose (UA) Negative Urine Ketones Negative Urine Blood Moderate H Urine Nitrate Negative Urine Bilirubin Negative Urine Urobilinogen 0.2 Ur Leukocyte Esterase Negative Urine RBC 1 - 3 Urine WBC 0 - 2 Ur Epithelial Cells 0 - 2 Urine Bacteria Small Coarse Granular Casts Trace H Urine Other [place]ye[place] ANCA Screen c-ANCA Titer Proteinase 3 (PR3) p-ANCA Titer Atypical p-ANCA Titer Myeloperoxidase Ab Attending/Attestation - Attestation I have personally seen and examined this patient.: Yes I have fully participated in the care of the patient.: Yes I have reviewed all pertinent clinical information: Yes Notes (Text): 01/02/18 14:[address] Cazares note
[2018-01-02 12:46] LABS: ALB/GLOB RATIO 0.9 (1.1-1.8); ALBUMIN 2.3 g/dL (3.0-4.8); ALT/SGPT 349 U/L (7-56); AST/SGOT 113 U/L (14-36); BLOOD UREA NITROGEN 15 mg/dL (7-21); CALCIUM 7.7 mg/dL (8.4-10.5); GFR NON-AFRICAN AMERICAN > 60
[2018-01-02 13:34] LABS: URINE BILIRUBIN NEGATIVE (NEGATIVE); URINE BLOOD MODERATE (NEGATIVE); URINE GLUCOSE (UA) NEGATIVE (NEGATIVE); URINE LEUKOCYTE ESTERASE NEGATIVE Leu/uL (NEGATIVE); URINE PROTEIN TRACE mg/dL (<30 mg/dL); URINE UROBILINOGEN 0.2 E.U./dL (<1 E.U./dL)
[2018-01-02 13:40] LABS: URINE APPEARANCE CLEAR (CLEAR); URINE COLOR YELLOW (YELLOW)
[2018-01-02 13:44] LABS: URINE BACTERIA SMALL (NEG); URINE COARSE GRANULAR CAST TRACE /hpf (0-2); URINE EPITHELIAL CELLS 0 - 2 /hpf (0-5); URINE WBC 0 - 2 /hpf (0-6)
[2018-01-02] MEDS: Albumin Human 25% (12.5 gm/50 ml) IV SCH ×2 (16:02→22:59)
--- NOTE | 2018-01-02 16:45 | CP.PCM.PN ---
<Donato Basilio - Last Filed: 01/02/18 16:42> Subjective - Date & Time of Evaluation Date of Evaluation: 01/02/18 Time of Evaluation: 10:00 - Subjective Subjective: Donato Basilio DO PGY-1, [employer] Medicine Progress Note Pt seen and examined at bedside. Currently intubated, midly arousable. No acute events reported overnight. Unable to obtain 12-point ROS due to pt's current clinical and mental status. Objective - Vital Signs/Intake and Output Vital Signs (last 24 hours): Temp Pulse Resp BP Pulse Ox 96.8 F L 77 25 H 122/71 100 01/02/18 16:00 01/02/18 16:00 01/02/18 13:45 01/02/18 16:00 01/02/18 16:00 Intake and Output: 01/02/18 01/02/18 06:59 18:59 Intake Total 1150 460 Output Total 800 1000 Balance 350 -540 - Medications Medications: Current Medications Albumin Human (Albumin Human 25% (12.5 Gm/50 Ml)) 12.5 gm IV Q4 NASH Last Admin: 01/02/18 16:02 Dose: 12.5 gm Hydrocortisone Sodium Succinate (Solu-Cortef) 50 mg IVP Q12H [facility]H Stop: 01/03/18 08:16 Last Admin: 01/02/18 09:08 Dose: 50 mg Levetiracetam (Keppra 500mg Ivpb) 500 mg in 100 mls @ 460 mls/hr IV Q12 NASH Last Admin: 01/02/18 09:06 Dose: 460 mls/hr Piperacillin Sod/Tazobactam Sod (Zosyn 3.375 In Ns 100ml) 100 mls @ 200 mls/hr IVPB Q6 NASH PRN Reason: Protocol Stop: 01/08/18 19:56 Last Admin: 01/02/18 12:00 Dose: 200 mls/hr Fentanyl Citrate (Fentanyl Citrate/Sodium Chloride 1 Mg/100 Ml) 1,000 mcg in 100 mls @ 2 mls/hr IV .Q24H PRN; Protocol; 20 MCG/HR PRN Reason: TITRATE PER MD ORDER Last Admin: 01/01/18 22:30 Dose: 20 mcg/hr, 2 mls/hr Vasopressin 20 units/ Sodium (Chloride) 101 mls @ 9.09 mls/hr IV .Q11H7M NASH; 0.03 U/MIN PRN Reason: Protocol Last Admin: 01/02/18 13:10 Dose: Not Given Norepinephrine Bitartrate 8 mg (/ Sodium Chloride) 508 mls @ 15.24 mls/hr IV .Q24H PRN; Protocol; 4 MCG/MIN PRN Reason: TITRATE PER MD ORDER Vancomycin HCl (Vancomycin 1gm) 1 gm in 250 mls @ 167 mls/hr IVPB Q12H [facility]H PRN Reason: Protocol Stop: 01/11/18 16:31 Insulin Human Regular (Humulin R Low) 0 units SC ACHS NASH PRN Reason: Protocol Levalbuterol HCl (Xopenex) 1.25 mg IH [id number] PRN PRN Reason: Shortness of Breath Last Admin: 01/02/18 14:32 Dose: 1.25 mg Pantoprazole Sodium (Protonix Inj) 40 mg IVP DAILY [facility] Last Admin: 01/02/18 09:07 Dose: 40 mg Potassium Phos/Sodium Phos (Neutra-Phos) 1 pkt PO TID [facility] Last Admin: 12/31/17 18:50 Dose: 1 pkt - Labs Labs: 01/02/18 08:10 01/02/18 12:30 PT 42.0 SECONDS (9.4-12.5) H 01/02/18 08:10 INR 3.56 H* 01/02/18 08:10 APTT 70.2 Seconds (25.1-36.5) H 01/02/18 08:10 - Constitutional Appears: No Acute Distress, Cachectic, Chronically Ill - Eye Exam Eye Exam: Normal appearance, PERRL - ENT Exam ENT Exam: Mucous Membranes Moist, Normal Oropharynx - Respiratory Exam Respiratory Exam: NORMAL BREATHING PATTERN Additional comments: Decreased breath sounds b/l - Cardiovascular Exam Cardiovascular Exam: REGULAR RHYTHM, +S1, +S2 - GI/Abdominal Exam GI & Abdominal Exam: Soft, Normal Bowel Sounds. absent: Tenderness - Extremities Exam Extremities Exam: Normal Capillary Refill - Neurological Exam Additional comments: Pt intubated - Skin Skin Exam: Dry, Warm Assessment and Plan - Assessment and Plan (Free Text) Assessment: 42F with PMHx of developmental delay reported to have absence seizure and B/L LE weakness prior to admission; was found to have altered mental status, significant hypotension, bradycardia, hypothermia, liver failure, and paroxysmal atrial fibrillation; admitted to ICU for further workup and management. Pt had worsening respiratory distress on 01/01/18 in ICU requiring intubation, prognosis poor. Plan: Respiratory distress -Developed episode on 01/01/18 requiring intubation by ICU team -Pt on PRVC, setting 300/25/10/60%, O2 sat 100%, RR 25, continue to monitor -On Vasopressin -Likely acute respiratory distress due to progression of HCAP and hypoxemic respiratory failure -CXR/CT chest: progression of b/l infiltrates, R more than L AMS -Differential includes Post-ictal state vs. septic encephalopathy vs. hepatic encephalopathy vs. ACS vs. intoxication, difficult to quantify due to patient's mental status; likely 2/2 severe sepsis -Head CT 12/26: no acute intracranial abnormality, mild anterior scalp and periorbital edema -CT Chest/abd/pelvis: anasarca, edema of mesenteric fat and ascites, L-sided rib fxs with atelectasis or PNA in L lower lobe -CXR 12/28: interval development of L perihilar airspace disease which may represent pulmonary edema or PNA, small pleural effusions -Repeat CXR 12/30: mildly decreased opacity of diffuse L-sided infiltrate, small b/l pleural effusion -Repeat CXR/CT chest as described above -F/u EEG -Prolactin elevated 29.2, Ammonia mildly elevated 37 -4 serial troponins neg -U/a without signs of UTI -UDS and Acetaminophen levels neg -HIV neg -Blood cx 1/2 pos for gram-neg rods on 12/25; repeat blood cxs 2/2 neg x 96 hrs -F/u carter cultures -Urine cx neg, MRSA screen neg -Merrem d/c'd as per GI for elevated LFTs, c/w Zosyn 3.375 g IVPB q 6 h day#3 -Doxycycline d/'d as per ID -C/w Keppra 500 mg IV bid -ID, Neuro, Cardio and GI consulted, recs appreciated -NGT replaced, plan to start TPN as per ICU team, f/u recs re nutrition -Palliative consulted, see note re goals of care Acute liver failure - improving since admission -CT Chest/abd/pelvis findings as described above -Abd U/s 12/28: atrophied liver, diffuse increased echogenicity in liver may reflect hepatic steatosis however parenchymal infectious/inflammatory etiologies cannot be excluded; b/l renal atrophy -LFts trending down today -Hepatitis and HIV work-up neg -Acetaminophen levels neg -GI consulted, recs appreciated -Anti-mitochondrial Ab neg, smooth muscle Ab neg Hypotension Continue to monitor, improving On vasopressin Pt tachycardic overnight, continue to monitor -Cardio following, recs appreciated Fx L Ribs 7-9 CT chest/abd/pelvis findings as listed above Ribs XR: fxs in L 7th and 8th ribs Continue to monitor Microcytic normochromic anemia H/H decreased today No need for transfusion at this time; s/p 2 units PRBCs and FFP since admission Iron 55, TIBC 174, normal % sat, low transferrin, normal ferritin Continue to monitor Concern for r/o DIC as per ICU, f/u fibrinogen and D-dimer GI/DVT ppx: Protonix; Heparin held due to low platelets, SCDs Pt seen, examined with, and plan discussed with Dr. Ortiz, attending. Donato Basilio DO PGY-1, [employer] Pager #[phone] <Dirk Ortiz - Last Filed: 01/03/18 19:05> Objective - Vital Signs/Intake and Output Vital Signs (last 24 hours): Temp Pulse Resp BP Pulse Ox 98.4 F 129 H 24 117/75 93 L 01/03/18 08:00 01/03/18 08:00 01/03/18 07:23 01/03/18 08:00 01/03/18 08:00 Intake and Output: 01/03/18 01/04/18 18:59 06:59 Intake Total 100 Balance 100 - Medications Medications: Current Medications Albumin Human (Albumin Human 25% (12.5 Gm/50 Ml)) 12.5 gm IV Q4 NASH Last Admin: 01/03/18 16:50 Dose: 12.5 gm Bacitracin (Bacitracin) 1 gm TOP TID [facility] Last Admin: 01/03/18 15:01 Dose: 1 gm Dextrose (Dextrose 50% Inj) 25 ml IVP ONCE PRN PRN Reason: Hypoglycemia Last Admin: 01/03/18 18:24 Dose: 25 ml Levetiracetam (Keppra 500mg Ivpb) 500 mg in 100 mls @ 460 mls/hr IV Q12 [facility] Last Admin: 01/03/18 09:29 Dose: 460 mls/hr Piperacillin Sod/Tazobactam Sod (Zosyn 3.375 In Ns 100ml) 100 mls @ 200 mls/hr IVPB Q6 [facility] PRN Reason: Protocol Stop: 01/08/18 19:56 Last Admin: 01/03/18 17:50 Dose: 200 mls/hr Norepinephrine Bitartrate 8 mg (/ Sodium Chloride) 508 mls @ 15.24 mls/hr IV .Q24H PRN; Protocol; 4 MCG/MIN PRN Reason: TITRATE PER MD ORDER Vancomycin HCl (Vancomycin 1gm) 1 gm in 250 mls @ 167 mls/hr IVPB Q12H [facility] PRN Reason: Protocol Stop: 01/11/18 16:31 Last Admin: 01/03/18 16:49 Dose: 167 mls/hr Dextrose (Dextrose 5% In Water 1000 Ml) 1,000 mls @ 100 mls/hr IV .Q10H [facility] Last Admin: 01/03/18 16:51 Dose: 100 mls/hr Fentanyl Citrate (Fentanyl Citrate/Sodium Chloride 1 Mg/100 Ml) 1,000 mcg in 100 mls @ 2 mls/hr IV .Q24H PRN; Protocol; 20 MCG/HR PRN Reason: TITRATE PER MD ORDER Last Admin: 01/03/18 18:06 Dose: 20 mcg/hr, 2 mls/hr Insulin Human Regular (Humulin R Low) 0 units SC ACHS [facility] PRN Reason: Protocol Last Admin: 01/03/18 16:36 Dose: Not Given Levalbuterol HCl (Xopenex) 1.25 mg IH [id number] PRN PRN Reason: Shortness of Breath Last Admin: 01/03/18 13:16 Dose: 1.25 mg Pantoprazole Sodium (Protonix Inj) 40 mg IVP DAILY [facility] Last Admin: 01/03/18 09:38 Dose: 40 mg Potassium Phos/Sodium Phos (Neutra-Phos) 1 pkt PO TID [facility] Last Admin: 12/31/17 18:50 Dose: 1 pkt - Labs Labs: 01/03/18 05:00 01/03/18 05:00 PT 20.4 SECONDS (9.4-12.5) H 01/03/18 05:00 INR 1.75 01/03/18 05:00 APTT 43.6 Seconds (25.1-36.5) H 01/03/18 05:00 Attending/Attestation - Attestation I have personally seen and examined this patient.: Yes I have fully participated in the care of the patient.: Yes I have reviewed all pertinent clinical information, including history, physical exam and plan: Yes
[2018-01-02 17:55] LABS: ARTERIAL BLOOD GAS HCO3 27.4 mmol/L (21-28); ARTERIAL BLOOD GAS HEMOGLOBIN 9.7 g/dL (11.7-17.4); ARTERIAL BLOOD GAS O2 CAPACITY 13.3 mL/dl (16-24); ARTERIAL BLOOD GAS O2 CONTENT 12.9 ML/dl (15-23); ARTERIAL BLOOD GAS O2 SAT 96.9 % (95-98); ARTERIAL BLOOD GAS PCO2 36 mm/Hg (35-45); ARTERIAL BLOOD GAS PH 7.49 (7.35-7.45); ARTERIAL BLOOD GAS TCO2 28.5 mmol.L (22-28)
--- NOTE | 2018-01-02 20:04 | PN ---
Copied To: Abdiaziz Sousa MD Attending MD: Abdiaziz Sousa MD DATE: 01/02/2018 SUBJECTIVE: The patient is in bed, in no acute distress, remains intubated on a ventilator and overall in poor condition. PHYSICAL EXAMINATION: VITAL SIGNS: Temperature is 96, blood pressure is 130/100, respiratory rate on a vent, heart rate of 67. HEENT: Unremarkable. NECK: Supple. LUNGS: Have decreased breath sounds. HEART: Normal S1 and S2. ABDOMINAL: Soft. LABORATORY EXAMINATION: Reveals a white count of 7, hemoglobin of 9, platelets of 43. Coagulation is noted. Chemistries reveals a BUN of 15, creatinine of 0.7, AST and ALT are elevated. Alkaline phosphatase is elevated now with 427. Microbiology reveals the Gram-negative nichole. It has still not been identified microbiology. They have not been able to culture it any further than that. The patient had a chest x-ray, extensive bilateral alveolar infiltrates consistent with a pneumonia. The patient also had a procalcitonin of 24, which is elevated at 0.99. Repeat procalcitonin is pending. The patient is currently on Zosyn. Dr. Cazares's note is reviewed. The patient had Levophed and vasopressin turned off tonight and intubated. Ethics consultation with Thais Gregg from yesterday is reviewed. She states she is unable to locate her contact, the patient's mother who comes to the hospital sporadically and progress note from Thais Gregg is appreciated. ASSESSMENT AND PLAN: A 42-year-old female who is chronically ill, in debilitated state, cachectic with a body mass index of only 11, mentally developmentally delayed, now with severe sepsis and respiratory failure, intubated on a ventilator with healthcare-associated pneumonia was initially had a gram-negative bacteremia, most likely biliary source and at this point on Zosyn and we will add vancomycin. Overall prognosis is quite poor for this patient. Abdiaziz Sousa MD
[2018-01-02] MEDS ORDERED: Dextrose 50% SYRINGE Inj (50 ml) ONE (21:26)
[2018-01-02] MEDS ORDERED: Dextrose 50% SYRINGE Inj (50 ml) IV PRN (21:37)
[2018-01-02] MEDS: Bacitracin Ointment 30 GM TUBE TOP SCH (23:01)
[2018-01-02] MEDS: Insulin Reg-LOW-Coverage SC SCH (23:03)
[2018-01-03] MEDS: Dextrose 50% SYRINGE Inj (50 ml) IVP PRN ×2 (01:42→18:24)
[2018-01-03] MEDS: Piperacillin/Tazobact 3.375 gm 100 ML IVPB SCH ×4 (01:57→17:50)
[2018-01-03] MEDS: Levalbuterol 1.25 MG/3 ML Inhal Soln UD IH PRN ×3 (02:00→13:16)
[2018-01-03] MEDS: Albumin Human 25% (12.5 gm/50 ml) IV SCH ×6 (02:07→20:30)
[2018-01-03] MEDS: Vancomycin 1gm in NS 250ml 1 GM/250 ML BAG IVPB SCH ×2 (04:29→16:49)
[2018-01-03 05:54] LABS: GRAN # 14.78 (1.4-6.5); GRAN % 97.3 % (50.0-68.0); HEMOGLOBIN 7.5 g/dL (12.0-16.0); LYMPH # 0.4 (1.2-3.4); LYMPH % 2.4 % (22.0-35.0); MEAN CORPUSCULAR HEMOGLOBIN 27.9 pg (25.0-35.0); MEAN CORPUSCULAR HGB CONC 34.4 g/dl (31.0-37.0); MONO % 0.3 % (1.0-6.0); RBC 2.69 10^6/uL (3.5-6.1); RED CELL DISTRIBUTION WIDTH 16.5 % (11.5-14.5); WHITE BLOOD COUNT 15.2 10^3/ul (4.5-11.0)
[2018-01-03 06:03] LABS: PLATELET COUNT 45 10^3/uL (120.0-450.0)
[2018-01-03 06:11] LABS: INR 1.75; PARTIAL THROMBOPLASTIN TIME 43.6 Seconds (25.1-36.5); PROTHROMBIN TIME 20.4 SECONDS (9.4-12.5)
[2018-01-03 06:20] LABS: ALB/GLOB RATIO 1.1 (1.1-1.8); ALBUMIN 2.6 g/dL (3.0-4.8); ALT/SGPT 239 U/L (7-56); AST/SGOT 88 U/L (14-36); BLOOD UREA NITROGEN 20 mg/dL (7-21); GFR NON-AFRICAN AMERICAN > 60
--- NOTE | 2018-01-03 07:38 | PN ---
Copied To: Abdiaziz Sousa MD Attending MD: Abdiaziz Sousa MD DATE: 01/03/2018 SUBJECTIVE: The patient is in bed, ICU, bed #6. Remains intubated on a ventilator. Continues to deteriorate. PHYSICAL EXAMINATION: VITAL SIGNS: Temperature of 99, blood pressure is 108/60, respiratory rate of 20. HEENT: Examination of HEENT was unremarkable. ET tube is in place. NECK: Supple. LUNGS: Have decreased breath sounds. HEART: Normal S1 and S2. ABDOMEN: Soft, nontender. LABORATORY DATA: Laboratory examination reveals the white count is up to 15,000, hemoglobin of 7. Coagulation is noted. Chemistries reveals a BUN of 20, creatinine of 0.9. Procalcitonin is noted to be elevated at 35. Urinalysis is noted. LFTs are elevated. Alk phos of 384 with AST of 88, which is much improved and bilirubin also has gone from 2.7 to 1. Alk phos also is decreased from 427 to 384. Serology is noted. Microbiology reveals the blood cultures are negative, the repeat ones. The initial one had a gram-negative nichole. Dr. Kilpatrick's progress note is reviewed. ASSESSMENT AND PLAN: A 42-year-old female, who is chronically ill, debilitated, end stage with body mass index of only 11, mentally challenged and developmentally delayed now with severe sepsis, respiratory failure, intubated on a ventilator with healthcare-associated pneumonia, elevated procalcitonin, probable gram-positive versus gram-negative. Initially had a gram-negative nichole bacteremia with gastrointestinal as the source with negative urinalysis and negative urine culture and on vancomycin and Zosyn. Overall, the patient's prognosis is quite poor. Abdiaziz Sousa MD
[2018-01-03] MEDS: Insulin Reg-LOW-Coverage SC SCH ×3 (08:08→16:36)
[2018-01-03] MEDS ORDERED: Potassium Phosphate 15 MMOLE in Sodium Chloride 0.9% 250 ML IVPB ONE (09:00)
--- NOTE | 2018-01-03 09:12 | RAD ---
HISTORY: Tube COMPARISON: Chest x-ray performed 01/02/18 TECHNIQUE: Chest, one view. FINDINGS: Endotracheal tube terminates approximately 3.7 cm above the rm. Nasogastric tube extends expected location of the stomach. LUNGS: Bilateral extensive alveolar infiltrates consistent with edema or pneumonia. Correlate clinically. Please note that chest x-ray has limited sensitivity for the detection of pulmonary masses. PLEURA: No significant pleural effusion identified. No definite pneumothorax . CARDIOVASCULAR: Borderline cardiomegaly. OSSEOUS STRUCTURES: Lateral left 8th and right lateral 9th rib fracture deformities, age indeterminate. Correlate clinically. VISUALIZED UPPER ABDOMEN: Unremarkable. OTHER FINDINGS: None. IMPRESSION: Endotracheal tube. Nasogastric tube. Persistent grossly stable alveolar infiltrates. m Lateral left 8th and right lateral 9th rib fracture deformities, age indeterminate. Correlate clinically.
[2018-01-03] MEDS: Bacitracin Ointment 30 GM TUBE TOP SCH ×3 (09:29→15:01)
[2018-01-03] MEDS: levETIRAcetam 500mg IVPB 500 MG/100 ML BAG IV SCH ×2 (09:29→21:18)
--- NOTE | 2018-01-03 12:23 | PN ---
Copied To: Bk Newton MD Attending MD: Bk Newton MD DATE: 01/03/2018 SUBJECTIVE: The patient developed acute respiratory distress, required intubation and mechanical ventilation. Nasogastric tube feeding was started. PHYSICAL EXAMINATION: VITAL SIGNS: Blood pressure 117/75, heart rate 129, temperature 98.1, respirations 24. HEENT: Pale conjunctivae. CHEST: Bilateral rhonchi. HEART: S1 and S2 regular. EXTREMITIES: Significant muscle wasting. LABORATORY DATA: Today's hemoglobin and hematocrit 7.5 and 21.8, white count 15.2, platelet count 45,000. SMA-7: Sodium 149, potassium 2.8, chloride 111, CO2 of 26, glucose 98, BUN 20, creatinine 0.9, alkaline phosphatase 384. Today's INR is 1.75, PTT 43.6. Chest x-ray revealed bilateral middle lung zone alveolar infiltrate. Recent chest CT scan revealed bilateral upper and lower lobe consolidation with air bronchogram consistent with pneumonia, moderate-size bilateral pleural effusion. ASSESSMENT: 1. Respiratory failure. 2. Bilateral pneumonia. 3. Anemia. 4. Thrombocytopenia and coagulopathy. 5. Elevated liver enzymes. 6. Gram-positive bacteremia. RECOMMENDATIONS: Continue current Keppra, Neutra-Phos, intravenous potassium chloride replacement as well as potassium phosphate replacement. Continue IV vancomycin 1 g every 12 hours and IV Zosyn 3.375 g intravenously every 6 hours. Bk Newton MD
--- NOTE | 2018-01-03 13:59 | CP.CCUPN ---
<Gertrudis Velarde - Last Filed: 01/03/18 18:00> CCU Subjective - Physician Review Events Since Last Encounter (Free Text): 01/03/18 13:53 Patient seen and examined at bedside. Patient had hypoglycemic episode overnight , BS 23, given 25cc of D50. Nursing staff also reported that patient had diarrheal episodes overnight, rectocele was placed. No fevers, melena, hematochezia, oozing from catheter sites. Patient remains intubated. 12 point ROS unobtainable as patient is intubated. CCU Objective - Vital Signs / Intake & Output Intake and Output (Last 8hrs): Intake & Output 01/02/18 01/03/18 01/03/18 22:59 06:59 14:59 Intake Total 520 1100 Output Total 2200 525 Balance -1680 575 Intake: IV 375 700 D50 25 Left Upper arm 700 albumin 50 calcium gluc 100 keppra 100 mag 100 Tube Feeding 145 400 Output: Urine 2200 525 Urethral (Jimenez) 2200 525 Other: # Bowel Movements 0 0 - Physical Exam Head: Positive for: Atraumatic, Normocephalic Pupils: Positive for: PERRL Extroacular Muscles: Positive for: EOMI Conjunctiva: Positive for: Normal Mouth: Positive for: Other (POOR DENTITION; intubated) Neck: Positive for: Other (unable to assess, intubated) Respiratory/Chest: Positive for: Rhonchi (bilaterally), Other (intubated on PRVC mode). Negative for: Accessory Muscle Use, Wheezes, Decreased Breath Sounds, Rales, Retracting, Tender to Palpation Cardiovascular: Positive for: Regular Rate and Rhythm, Normal S1, S2. Negative for: Murmurs Abdomen: Positive for: Normal Bowel Sounds, Other (Abdomen is scaphoid; soft). Negative for: Tenderness, Distention, Peritoneal Signs, Rebound, Guarding, McBurney's Point Tender, Rovsing's Sign Present, Hernias, Feeding Tubes, Ostomy Tubes, Mass/Organomegaly, Scars Back: Positive for: Normal Inspection Upper Extremity: Positive for: Normal Inspection. Negative for: Cyanosis, Edema Lower Extremity: Positive for: Normal Inspection, NORMAL PULSES ( pulses strong and equal, bilateral and present). Negative for: Edema Neurological: Positive for: Other (intubated) Skin: Positive for: Warm, Dry, Normal Color. Negative for: Rashes Psychiatric: Positive for: Alert - Medications Active Medications: Active Medications Generic Name Dose Route Start Last Admin Trade Name Freq PRN Reason Stop Dose Admin Albumin Human 12.5 gm 01/02/18 16:00 01/03/18 12:15 Albumin Human 25% (12.5 Gm/50 Ml) IV 12.5 gm Q4 NASH Administration Bacitracin 1 gm 01/02/18 18:00 01/03/18 09:29 Bacitracin TOP 1 gm TID NASH Administration Dextrose 25 ml 01/03/18 00:48 01/03/18 01:42 Dextrose 50% Inj IVP 25 ml ONCE PRN Administration Hypoglycemia Levetiracetam 500 mg in 100 mls @ 460 mls/hr 12/27/17 07:57 01/03/18 09:29 Keppra 500mg Ivpb IV 460 mls/hr Q12 NASH Administration Piperacillin Sod/Tazobactam Sod 100 mls @ 200 mls/hr 12/30/17 19:55 01/03/18 12:15 Zosyn 3.375 In Ns 100ml IVPB 01/08/18 19:56 200 mls/hr Q6 NASH Administration Protocol Fentanyl Citrate 1,000 mcg in 100 mls @ 2 mls/hr 01/01/18 05:31 01/01/18 22: 30 Fentanyl Citrate/Sodium Chloride 1 Mg/100 Ml IV 20 mcg/hr .Q24H PRN 2 mls/hr TITRATE PER MD ORDER Administration Protocol 20 MCG/HR Vasopressin 20 units/ Sodium 101 mls @ 9.09 mls/hr 01/01/18 11:30 01/02/18 13 :10 Chloride IV Not Given .[id number] NASH Protocol 0.03 U/MIN Norepinephrine Bitartrate 8 mg 508 mls @ 15.24 mls/hr 01/01/18 20:12 / Sodium Chloride IV .Q24H PRN TITRATE PER MD ORDER Protocol 4 MCG/MIN Vancomycin HCl 1 gm in 250 mls @ 167 mls/hr 01/02/18 16:30 01/03/18 04:29 Vancomycin 1gm IVPB 01/11/18 16:31 167 mls/hr Q12H NASH Administration Protocol Dextrose 1,000 mls @ 100 mls/hr 01/03/18 07:15 01/03/18 07:59 Dextrose 5% In Water 1000 Ml IV 100 mls/hr .Q10H NASH Administration Potassium Phosphate 15 mmole/ 255 mls @ 42.5 mls/hr 01/03/18 09:00 01/03/18 09:34 Sodium Chloride IVPB 01/03/18 14:59 42.5 mls/hr ONCE ONE Administration Potassium Chloride 20 meq in 100 mls @ 50 mls/hr 01/03/18 11:15 Potassium Chloride 20 Meq/100 Ml IVPB 01/03/18 17:14 Q2H NASH Insulin Human Regular 0 units 01/02/18 16:30 01/03/18 08:08 Humulin R Low SC Not Given ACHS NASH Protocol Levalbuterol HCl 1.25 mg 12/31/17 18:28 01/03/18 13:16 Xopenex IH 1.25 mg [id number] PRN Administration Shortness of Breath Pantoprazole Sodium 40 mg 12/26/17 10:00 01/03/18 09:38 Protonix Inj IVP 40 mg DAILY NASH Administration Potassium Phos/Sodium Phos 1 pkt 12/31/17 14:00 12/31/17 18:50 Neutra-Phos PO 1 pkt TID NASH Administration - Patient Studies Lab Studies: Microbiology Studies 01/02/18 07:00 Blood Culture - Preliminary Blood NO GROWTH AFTER 24 HOURS 01/02/18 06:45 Blood Culture - Preliminary Blood NO GROWTH AFTER 24 HOURS 12/28/17 17:00 Blood Culture - Final Blood NO GROWTH AFTER 5 DAYS Gram Stain - Final TEST NOT PERFORMED 12/28/17 16:30 Blood Culture - Final Blood NO GROWTH AFTER 5 DAYS Gram Stain - Final TEST NOT PERFORMED Lab Studies 01/03/18 01/03/18 01/03/18 Range/Units 11:51 10:03 07:45 WBC (4.5-11.0) 10^3/ul RBC (3.5-6.1) 10^6/uL Hgb (12.0-16.0) g/dL Hct (36.0-48.0) % MCV (80.0-105.0) fl MCH (25.0-35.0) pg MCHC (31.0-37.0) g/dl RDW (11.5-14.5) % Plt Count (120.0-450.0) 10^3/uL Gran % (50.0-68.0) % Lymph % (Auto) (22.0-35.0) % Gilchrist % (Auto) (1.0-6.0) % Eos % (Auto) (1.5-5.0) % Baso % (Auto) (0.0-3.0) % Gran # (1.4-6.5) Lymph # (Auto) (1.2-3.4) Gilchrist # (Auto) (0.1-0.6) Eos # (Auto) (0.0-0.7) Baso # (Auto) (0.0-2.0) K/mm3 PT (9.4-12.5) SECONDS INR APTT (25.1-36.5) Seconds pCO2 (35-45) mm/Hg pO2 (80-100) mm/Hg HCO3 (21-28) mmol/L ABG pH (7.35-7.45) ABG Total CO2 (22-28) mmol.L ABG O2 Saturation (95-98) % ABG O2 Content (15-23) ML/dl ABG Base Excess (-2.0-3.0) mmol/L ABG Hemoglobin (11.7-17.4) g/dL ABG Carboxyhemoglobin (0.5-1.5) % POC ABG HHb (Measured) (0-5) % ABG Methemoglobin (0.0-3.0) % ABG O2 Capacity (16-24) mL/dl Hgb O2 Saturation (95.0-98.0) % FiO2 % Sodium (132-148) mmol/L Potassium (3.6-5.0) mmol/L Chloride (98-107) mmol/L Carbon Dioxide (21-33) mmol/L Anion Gap (10-20) BUN (7-21) mg/dL Creatinine (0.7-1.2) mg/dl Est GFR ( Amer) Est GFR (Non-Af Amer) POC Glucose (mg/dL) 68 79 65 (65-110) mg/dL Random Glucose (70-110) mg/dL Calcium (8.4-10.5) mg/dL Phosphorus (2.5-4.5) mg/dL Magnesium (1.7-2.2) mg/dL Total Bilirubin (0.2-1.3) mg/dL AST (14-36) U/L ALT (7-56) U/L Alkaline Phosphatase (38-126) U/L Total Protein (5.8-8.3) g/dL Albumin (3.0-4.8) g/dL Globulin gm/dL Albumin/Globulin Ratio (1.1-1.8) Procalcitonin (0.19-0.49) NG/ML 01/03/18 01/03/18 01/03/18 Range/Units 06:53 05:00 05:00 WBC (4.5-11.0) 10^3/ul RBC (3.5-6.1) 10^6/uL Hgb (12.0-16.0) g/dL Hct (36.0-48.0) % MCV (80.0-105.0) fl MCH (25.0-35.0) pg MCHC (31.0-37.0) g/dl RDW (11.5-14.5) % Plt Count (120.0-450.0) 10^3/uL Gran % (50.0-68.0) % Lymph % (Auto) (22.0-35.0) % Gilchrist % (Auto) (1.0-6.0) % Eos % (Auto) (1.5-5.0) % Baso % (Auto) (0.0-3.0) % Gran # (1.4-6.5) Lymph # (Auto) (1.2-3.4) Gilchrist # (Auto) (0.1-0.6) Eos # (Auto) (0.0-0.7) Baso # (Auto) (0.0-2.0) K/mm3 PT 20.4 H (9.4-12.5) SECONDS INR 1.75 APTT 43.6 H (25.1-36.5) Seconds pCO2 (35-45) mm/Hg pO2 (80-100) mm/Hg HCO3 (21-28) mmol/L ABG pH (7.35-7.45) ABG Total CO2 (22-28) mmol.L ABG O2 Saturation (95-98) % ABG O2 Content (15-23) ML/dl ABG Base Excess (-2.0-3.0) mmol/L ABG Hemoglobin (11.7-17.4) g/dL ABG Carboxyhemoglobin (0.5-1.5) % POC ABG HHb (Measured) (0-5) % ABG Methemoglobin (0.0-3.0) % ABG O2 Capacity (16-24) mL/dl Hgb O2 Saturation (95.0-98.0) % FiO2 % Sodium 149 H (132-148) mmol/L Potassium 2.8 L* D (3.6-5.0) mmol/L Chloride 111 H (98-107) mmol/L Carbon Dioxide 26 (21-33) mmol/L Anion Gap 16 (10-20) BUN 20 (7-21) mg/dL Creatinine 0.9 (0.7-1.2) mg/dl Est GFR ( Amer) > 60 Est GFR (Non-Af Amer) > 60 POC Glucose (mg/dL) 90 (65-110) mg/dL Random Glucose 98 (70-110) mg/dL Calcium 8.0 L (8.4-10.5) mg/dL Phosphorus 2.2 L (2.5-4.5) mg/dL Magnesium 2.2 (1.7-2.2) mg/dL Total Bilirubin 1.0 (0.2-1.3) mg/dL AST 88 H D (14-36) U/L ALT 239 H (7-56) U/L Alkaline Phosphatase 384 H (38-126) U/L Total Protein 5.0 L (5.8-8.3) g/dL Albumin 2.6 L (3.0-4.8) g/dL Globulin 2.3 gm/dL Albumin/Globulin Ratio 1.1 (1.1-1.8) Procalcitonin (0.19-0.49) NG/ML 01/03/18 01/03/18 01/03/18 Range/Units 05:00 04:37 02:15 WBC 15.2 H D (4.5-11.0) 10^3/ul RBC 2.69 L (3.5-6.1) 10^6/uL Hgb 7.5 L (12.0-16.0) g/dL Hct 21.8 L (36.0-48.0) % MCV 81.0 (80.0-105.0) fl MCH 27.9 (25.0-35.0) pg MCHC 34.4 (31.0-37.0) g/dl RDW 16.5 H (11.5-14.5) % Plt Count 45 L* (120.0-450.0) 10^3/uL Gran % 97.3 H (50.0-68.0) % Lymph % (Auto) 2.4 L (22.0-35.0) % Gilchrist % (Auto) 0.3 L (1.0-6.0) % Eos % (Auto) 0.0 L (1.5-5.0) % Baso % (Auto) 0.0 (0.0-3.0) % Gran # 14.78 H (1.4-6.5) Lymph # (Auto) 0.4 L (1.2-3.4) Gilchrist # (Auto) 0.0 L (0.1-0.6) Eos # (Auto) 0.0 (0.0-0.7) Baso # (Auto) 0.00 (0.0-2.0) K/mm3 PT (9.4-12.5) SECONDS INR APTT (25.1-36.5) Seconds pCO2 (35-45) mm/Hg pO2 (80-100) mm/Hg HCO3 (21-28) mmol/L ABG pH (7.35-7.45) ABG Total CO2 (22-28) mmol.L ABG O2 Saturation (95-98) % ABG O2 Content (15-23) ML/dl ABG Base Excess (-2.0-3.0) mmol/L ABG Hemoglobin (11.7-17.4) g/dL ABG Carboxyhemoglobin (0.5-1.5) % POC ABG HHb (Measured) (0-5) % ABG Methemoglobin (0.0-3.0) % ABG O2 Capacity (16-24) mL/dl Hgb O2 Saturation (95.0-98.0) % FiO2 % Sodium (132-148) mmol/L Potassium (3.6-5.0) mmol/L Chloride (98-107) mmol/L Carbon Dioxide (21-33) mmol/L Anion Gap (10-20) BUN (7-21) mg/dL Creatinine (0.7-1.2) mg/dl Est GFR ( Amer) Est GFR (Non-Af Amer) POC Glucose (mg/dL) 121 H 228 H (65-110) mg/dL Random Glucose (70-110) mg/dL Calcium (8.4-10.5) mg/dL Phosphorus (2.5-4.5) mg/dL Magnesium (1.7-2.2) mg/dL Total Bilirubin (0.2-1.3) mg/dL AST (14-36) U/L ALT (7-56) U/L Alkaline Phosphatase (38-126) U/L Total Protein (5.8-8.3) g/dL Albumin (3.0-4.8) g/dL Globulin gm/dL Albumin/Globulin Ratio (1.1-1.8) Procalcitonin (0.19-0.49) NG/ML 01/03/18 01/03/18 01/02/18 Range/Units 01:36 00:13 22:00 WBC (4.5-11.0) 10^3/ul RBC (3.5-6.1) 10^6/uL Hgb (12.0-16.0) g/dL Hct (36.0-48.0) % MCV (80.0-105.0) fl MCH (25.0-35.0) pg MCHC (31.0-37.0) g/dl RDW (11.5-14.5) % Plt Count (120.0-450.0) 10^3/uL Gran % (50.0-68.0) % Lymph % (Auto) (22.0-35.0) % Gilchrist % (Auto) (1.0-6.0) % Eos % (Auto) (1.5-5.0) % Baso % (Auto) (0.0-3.0) % Gran # (1.4-6.5) Lymph # (Auto) (1.2-3.4) Gilchrist # (Auto) (0.1-0.6) Eos # (Auto) (0.0-0.7) Baso # (Auto) (0.0-2.0) K/mm3 PT (9.4-12.5) SECONDS INR APTT (25.1-36.5) Seconds pCO2 (35-45) mm/Hg pO2 (80-100) mm/Hg HCO3 (21-28) mmol/L ABG pH (7.35-7.45) ABG Total CO2 (22-28) mmol.L ABG O2 Saturation (95-98) % ABG O2 Content (15-23) ML/dl ABG Base Excess (-2.0-3.0) mmol/L ABG Hemoglobin (11.7-17.4) g/dL ABG Carboxyhemoglobin (0.5-1.5) % POC ABG HHb (Measured) (0-5) % ABG Methemoglobin (0.0-3.0) % ABG O2 Capacity (16-24) mL/dl Hgb O2 Saturation (95.0-98.0) % FiO2 % Sodium (132-148) mmol/L Potassium (3.6-5.0) mmol/L Chloride (98-107) mmol/L Carbon Dioxide (21-33) mmol/L Anion Gap (10-20) BUN (7-21) mg/dL Creatinine (0.7-1.2) mg/dl Est GFR ( Amer) Est GFR (Non-Af Amer) POC Glucose (mg/dL) 48 L 65 155 H (65-110) mg/dL Random Glucose (70-110) mg/dL Calcium (8.4-10.5) mg/dL Phosphorus (2.5-4.5) mg/dL Magnesium (1.7-2.2) mg/dL Total Bilirubin (0.2-1.3) mg/dL AST (14-36) U/L ALT (7-56) U/L Alkaline Phosphatase (38-126) U/L Total Protein (5.8-8.3) g/dL Albumin (3.0-4.8) g/dL Globulin gm/dL Albumin/Globulin Ratio (1.1-1.8) Procalcitonin (0.19-0.49) NG/ML 01/02/18 01/02/18 01/02/18 Range/Units 21:22 17:49 17:04 WBC (4.5-11.0) 10^3/ul RBC (3.5-6.1) 10^6/uL Hgb (12.0-16.0) g/dL Hct (36.0-48.0) % MCV (80.0-105.0) fl MCH (25.0-35.0) pg MCHC (31.0-37.0) g/dl RDW (11.5-14.5) % Plt Count (120.0-450.0) 10^3/uL Gran % (50.0-68.0) % Lymph % (Auto) (22.0-35.0) % Gilchrist % (Auto) (1.0-6.0) % Eos % (Auto) (1.5-5.0) % Baso % (Auto) (0.0-3.0) % Gran # (1.4-6.5) Lymph # (Auto) (1.2-3.4) Gilchrist # (Auto) (0.1-0.6) Eos # (Auto) (0.0-0.7) Baso # (Auto) (0.0-2.0) K/mm3 PT (9.4-12.5) SECONDS INR APTT (25.1-36.5) Seconds pCO2 36 (35-45) mm/Hg pO2 66.0 L (80-100) mm/Hg HCO3 27.4 (21-28) mmol/L ABG pH 7.49 H (7.35-7.45) ABG Total CO2 28.5 H (22-28) mmol.L ABG O2 Saturation 96.9 (95-98) % ABG O2 Content 12.9 L (15-23) ML/dl ABG Base Excess 3.9 H (-2.0-3.0) mmol/L ABG Hemoglobin 9.7 L (11.7-17.4) g/dL ABG Carboxyhemoglobin 1.6 H (0.5-1.5) % POC ABG HHb (Measured) 3.0 (0-5) % ABG Methemoglobin 1.1 (0.0-3.0) % ABG O2 Capacity 13.3 L (16-24) mL/dl Hgb O2 Saturation 94.3 L (95.0-98.0) % FiO2 40.0 % Sodium (132-148) mmol/L Potassium (3.6-5.0) mmol/L Chloride (98-107) mmol/L Carbon Dioxide (21-33) mmol/L Anion Gap (10-20) BUN (7-21) mg/dL Creatinine (0.7-1.2) mg/dl Est GFR ( Amer) Est GFR (Non-Af Amer) POC Glucose (mg/dL) 28 L* 124 H (65-110) mg/dL Random Glucose (70-110) mg/dL Calcium (8.4-10.5) mg/dL Phosphorus (2.5-4.5) mg/dL Magnesium (1.7-2.2) mg/dL Total Bilirubin (0.2-1.3) mg/dL AST (14-36) U/L ALT (7-56) U/L Alkaline Phosphatase (38-126) U/L Total Protein (5.8-8.3) g/dL Albumin (3.0-4.8) g/dL Globulin gm/dL Albumin/Globulin Ratio (1.1-1.8) Procalcitonin (0.19-0.49) NG/ML 01/02/18 01/02/18 Range/Units 16:09 08:10 WBC (4.5-11.0) 10^3/ul RBC (3.5-6.1) 10^6/uL Hgb (12.0-16.0) g/dL Hct (36.0-48.0) % MCV (80.0-105.0) fl MCH (25.0-35.0) pg MCHC (31.0-37.0) g/dl RDW (11.5-14.5) % Plt Count (120.0-450.0) 10^3/uL Gran % (50.0-68.0) % Lymph % (Auto) (22.0-35.0) % Gilchrist % (Auto) (1.0-6.0) % Eos % (Auto) (1.5-5.0) % Baso % (Auto) (0.0-3.0) % Gran # (1.4-6.5) Lymph # (Auto) (1.2-3.4) Gilchrist # (Auto) (0.1-0.6) Eos # (Auto) (0.0-0.7) Baso # (Auto) (0.0-2.0) K/mm3 PT (9.4-12.5) SECONDS INR APTT (25.1-36.5) Seconds pCO2 (35-45) mm/Hg pO2 (80-100) mm/Hg HCO3 (21-28) mmol/L ABG pH (7.35-7.45) ABG Total CO2 (22-28) mmol.L ABG O2 Saturation (95-98) % ABG O2 Content (15-23) ML/dl ABG Base Excess (-2.0-3.0) mmol/L ABG Hemoglobin (11.7-17.4) g/dL ABG Carboxyhemoglobin (0.5-1.5) % POC ABG HHb (Measured) (0-5) % ABG Methemoglobin (0.0-3.0) % ABG O2 Capacity (16-24) mL/dl Hgb O2 Saturation (95.0-98.0) % FiO2 % Sodium (132-148) mmol/L Potassium (3.6-5.0) mmol/L Chloride (98-107) mmol/L Carbon Dioxide (21-33) mmol/L Anion Gap (10-20) BUN (7-21) mg/dL Creatinine (0.7-1.2) mg/dl Est GFR ( Amer) Est GFR (Non-Af Amer) POC Glucose (mg/dL) 41 L (65-110) mg/dL Random Glucose (70-110) mg/dL Calcium (8.4-10.5) mg/dL Phosphorus (2.5-4.5) mg/dL Magnesium (1.7-2.2) mg/dL Total Bilirubin (0.2-1.3) mg/dL AST (14-36) U/L ALT (7-56) U/L Alkaline Phosphatase (38-126) U/L Total Protein (5.8-8.3) g/dL Albumin (3.0-4.8) g/dL Globulin gm/dL Albumin/Globulin Ratio (1.1-1.8) Procalcitonin 35.62 H (0.19-0.49) NG/ML Laboratory Results - last 24 hr 01/02/18 01/02/18 01/02/18 08:10 16:09 17:04 WBC RBC Hgb Hct MCV MCH MCHC RDW Plt Count Gran % Lymph % (Auto) Gilchrist % (Auto) Eos % (Auto) Baso % (Auto) Gran # Lymph # (Auto) Gilchrist # (Auto) Eos # (Auto) Baso # (Auto) PT INR APTT pCO2 pO2 HCO3 ABG pH ABG Total CO2 ABG O2 Saturation ABG O2 Content ABG Base Excess ABG Hemoglobin ABG Carboxyhemoglobin POC ABG HHb (Measured) ABG Methemoglobin ABG O2 Capacity Hgb O2 Saturation FiO2 Sodium Potassium Chloride Carbon Dioxide Anion Gap BUN Creatinine Est GFR ( Amer) Est GFR (Non-Af Amer) POC Glucose (mg/dL) 41 L 124 H Random Glucose Calcium Phosphorus Magnesium Total Bilirubin AST ALT Alkaline Phosphatase Total Protein Albumin Globulin Albumin/Globulin Ratio Procalcitonin 35.62 H 01/02/18 01/02/18 01/02/18 17:49 21:22 22:00 WBC RBC Hgb Hct MCV MCH MCHC RDW Plt Count Gran % Lymph % (Auto) Gilchrist % (Auto) Eos % (Auto) Baso % (Auto) Gran # Lymph # (Auto) Gilchrist # (Auto) Eos # (Auto) Baso # (Auto) PT INR APTT pCO2 36 pO2 66.0 L HCO3 27.4 ABG pH 7.49 H ABG Total CO2 28.5 H ABG O2 Saturation 96.9 ABG O2 Content 12.9 L ABG Base Excess 3.9 H ABG Hemoglobin 9.7 L ABG Carboxyhemoglobin 1.6 H POC ABG HHb (Measured) 3.0 ABG Methemoglobin 1.1 ABG O2 Capacity 13.3 L Hgb O2 Saturation 94.3 L FiO2 40.0 Sodium Potassium Chloride Carbon Dioxide Anion Gap BUN Creatinine Est GFR ( Amer) Est GFR (Non-Af Amer) POC Glucose (mg/dL) 28 L* 155 H Random Glucose Calcium Phosphorus Magnesium Total Bilirubin AST ALT Alkaline Phosphatase Total Protein Albumin Globulin Albumin/Globulin Ratio Procalcitonin 01/03/18 01/03/18 01/03/18 00:13 01:36 02:15 WBC RBC Hgb Hct MCV MCH MCHC RDW Plt Count Gran % Lymph % (Auto) Gilchrist % (Auto) Eos % (Auto) Baso % (Auto) Gran # Lymph # (Auto) Gilchrist # (Auto) Eos # (Auto) Baso # (Auto) PT INR APTT pCO2 pO2 HCO3 ABG pH ABG Total CO2 ABG O2 Saturation ABG O2 Content ABG Base Excess ABG Hemoglobin ABG Carboxyhemoglobin POC ABG HHb (Measured) ABG Methemoglobin ABG O2 Capacity Hgb O2 Saturation FiO2 Sodium Potassium Chloride Carbon Dioxide Anion Gap BUN Creatinine Est GFR ( Amer) Est GFR (Non-Af Amer) POC Glucose (mg/dL) 65 48 L 228 H Random Glucose Calcium Phosphorus Magnesium Total Bilirubin AST ALT Alkaline Phosphatase Total Protein Albumin Globulin Albumin/Globulin Ratio Procalcitonin 01/03/18 01/03/18 01/03/18 04:37 05:00 05:00 WBC 15.2 H D RBC 2.69 L Hgb 7.5 L Hct 21.8 L MCV 81.0 MCH 27.9 MCHC 34.4 RDW 16.5 H Plt Count 45 L* Gran % 97.3 H Lymph % (Auto) 2.4 L Gilchrist % (Auto) 0.3 L Eos % (Auto) 0.0 L Baso % (Auto) 0.0 Gran # 14.78 H Lymph # (Auto) 0.4 L Gilchrist # (Auto) 0.0 L Eos # (Auto) 0.0 Baso # (Auto) 0.00 PT INR APTT pCO2 pO2 HCO3 ABG pH ABG Total CO2 ABG O2 Saturation ABG O2 Content ABG Base Excess ABG Hemoglobin ABG Carboxyhemoglobin POC ABG HHb (Measured) ABG Methemoglobin ABG O2 Capacity Hgb O2 Saturation FiO2 Sodium 149 H Potassium 2.8 L* D Chloride 111 H Carbon Dioxide 26 Anion Gap 16 BUN 20 Creatinine 0.9 Est GFR ( Amer) > 60 Est GFR (Non-Af Amer) > 60 POC Glucose (mg/dL) 121 H Random Glucose 98 Calcium 8.0 L Phosphorus 2.2 L Magnesium 2.2 Total Bilirubin 1.0 AST 88 H D ALT 239 H Alkaline Phosphatase 384 H Total Protein 5.0 L Albumin 2.6 L Globulin 2.3 Albumin/Globulin Ratio 1.1 Procalcitonin 01/03/18 01/03/18 01/03/18 05:00 06:53 07:45 WBC RBC Hgb Hct MCV MCH MCHC RDW Plt Count Gran % Lymph % (Auto) Gilchrist % (Auto) Eos % (Auto) Baso % (Auto) Gran # Lymph # (Auto) Gilchrist # (Auto) Eos # (Auto) Baso # (Auto) PT 20.4 H INR 1.75 APTT 43.6 H pCO2 pO2 HCO3 ABG pH ABG Total CO2 ABG O2 Saturation ABG O2 Content ABG Base Excess ABG Hemoglobin ABG Carboxyhemoglobin POC ABG HHb (Measured) ABG Methemoglobin ABG O2 Capacity Hgb O2 Saturation FiO2 Sodium Potassium Chloride Carbon Dioxide Anion Gap BUN Creatinine Est GFR ( Amer) Est GFR (Non-Af Amer) POC Glucose (mg/dL) 90 65 Random Glucose Calcium Phosphorus Magnesium Total Bilirubin AST ALT Alkaline Phosphatase Total Protein Albumin Globulin Albumin/Globulin Ratio Procalcitonin 01/03/18 01/03/18 10:03 11:51 WBC RBC Hgb Hct MCV MCH MCHC RDW Plt Count Gran % Lymph % (Auto) Gilchrist % (Auto) Eos % (Auto) Baso % (Auto) Gran # Lymph # (Auto) Gilchrist # (Auto) Eos # (Auto) Baso # (Auto) PT INR APTT pCO2 pO2 HCO3 ABG pH ABG Total CO2 ABG O2 Saturation ABG O2 Content ABG Base Excess ABG Hemoglobin ABG Carboxyhemoglobin POC ABG HHb (Measured) ABG Methemoglobin ABG O2 Capacity Hgb O2 Saturation FiO2 Sodium Potassium Chloride Carbon Dioxide Anion Gap BUN Creatinine Est GFR ( Amer) Est GFR (Non-Af Amer) POC Glucose (mg/dL) 79 68 Random Glucose Calcium Phosphorus Magnesium Total Bilirubin AST ALT Alkaline Phosphatase Total Protein Albumin Globulin Albumin/Globulin Ratio Procalcitonin Fingerstick Blood Sugar Results: 65 Review of Systems - Review of Systems All systems: reviewed and no additional remarkable complaints except Review of Systems: as per subjective portion of exam Assessment/Plan - Assessment and Plan (Free Text) Assessment: 42F with PMH developmental delay, presented to [facility] for seizure/AMS, initially admitted to ICU for HCAP, found to have gram negative bacteremia, progressed to ARDS, hypoxemic respiratory failure. Patient remains intubated. Patient not requiring pressors currently. Yesterday, there was concern for DIC, however peripheral smear did not reveal any schistocytes. Patient having hypoglycemia overnight, started on D5W at 50cc/hr: Neuro: intubated, patient awake, alert, pulling tube. started on fentanyl drip. Patient opens eyes spontaneously, moving all extremities. -Ammonia level normal -CT Head negative -seizure, aspiration and high fall risk precautions -EEG wnl -on keppra 500 IV Q12 -Neurology on board -monitor Cardio: -off pressors, maintaining MAP>65 -monitor Lungs: -Hypoxemic respiratory acidosis 2/2 ARDS (worsening HCAP vs Aspiration pneumonia ), PaO2 to FiO2 ratio<200 -Remains intubated, on PRVC mode, TV 300, RR 16, PEEP 10, 40% FiO2. -CXR today improved from yesterday. -C/w Vanco and Zosyn -Continue with HOB elevation> 35 degrees, aspiration precautions. -Continue with protected lung ventilation strategies with TV of 3-6 ml/kg of IBW , plateau pressure less than 35, bronchodilators, keep oxygenation above 90%, pulm toileting Nephro: -Replace lytes, maintain euvolemia. Continue to monitor. -Avoid nephrotoxic agents -Cr 0.9 -monitor GI: -AST/ALT improving; Alk phos Improving -c/w NGT feeds -monitor Hepatic Workup: -Smooth muscle Ab negative -ANCA screen negative -Alpha1 Antitrypsin pending -Anti Mitochondrial Ab negative -No hepatic thrombosis on duplex -Patient is cachectic with BMI of 10, concern for chronic malnutrition -CT abd/chest shows severe edema in mesenteric fat, esophagitis and pelvis ascites. The swelling is consistent with severe malnutrition with low albumin -hepatitis panel is negative -CA-125 wnl -GI prophylaxis with protonix -GI on consult, Dr. Rizo Heme: -Hgb 7.5 today - likely sepsis related -elevated PT/PTT, decreased fibronogen. decreased platelets noted yesterday. peripheral smear negative for schistocytes, as per discussion with Dr Lentz. -plts low 45 -closely monitor : -TVUS unremarkable for ovaries -CA 125 normal Endo: Maintain euglycemia. -c-peptide wnl -TSH WNL ID: -HCAP PNA vs Aspiration PNA -Gram neg bacteremia -On Vanco and Zosyn -afebrile, leukocytosis 15.2 this AM (from 7.1 yesterday). sent for c diff in setting of diarrhea overnight. -Repeat Blood Cx 06/06 12/28 NTD -Blood Cx 05/06 12/25 shows GNR -Urine Cx negative -HIV Panel negative -ID on consult, Dr. Miles GI/DVT Ppx: Protonix IVP, SCDs do not fit Patient was seen, examined, and discussed w/ attending physician Dr. Quinton Ruffin. Zaina Velarde, PGY2 <Quinton Ruffin - Last Filed: 01/03/18 18:26> CCU Objective - Vital Signs / Intake & Output Intake and Output (Last 8hrs): Intake & Output 01/03/18 01/03/18 01/03/18 06:59 14:59 22:59 Intake Total 1100 100 Output Total 525 Balance 575 100 Intake: IV 700 100 Left Upper arm 700 Tube Feeding 400 Output: Urine 525 Urethral (Jimenez) 525 Other: # Bowel Movements 0 - Medications Active Medications: Active Medications Generic Name Dose Route Start Last Admin Trade Name Freq PRN Reason Stop Dose Admin Albumin Human 12.5 gm 01/02/18 16:00 01/03/18 16:50 Albumin Human 25% (12.5 Gm/50 Ml) IV 12.5 gm Q4 NASH Administration Bacitracin 1 gm 01/02/18 18:00 01/03/18 15:01 Bacitracin TOP 1 gm TID NASH Administration Dextrose 25 ml 01/03/18 00:48 01/03/18 18:24 Dextrose 50% Inj IVP 25 ml ONCE PRN Administration Hypoglycemia Levetiracetam 500 mg in 100 mls @ 460 mls/hr 12/27/17 07:57 01/03/18 09:29 Keppra 500mg Ivpb IV 460 mls/hr Q12 NASH Administration Piperacillin Sod/Tazobactam Sod 100 mls @ 200 mls/hr 12/30/17 19:55 01/03/18 17:50 Zosyn 3.375 In Ns 100ml IVPB 01/08/18 19:56 200 mls/hr Q6 NASH Administration Protocol Norepinephrine Bitartrate 8 mg 508 mls @ 15.24 mls/hr 01/01/18 20:12 / Sodium Chloride IV .Q24H PRN TITRATE PER MD ORDER Protocol 4 MCG/MIN Vancomycin HCl 1 gm in 250 mls @ 167 mls/hr 01/02/18 16:30 01/03/18 16:49 Vancomycin 1gm IVPB 01/11/18 16:31 167 mls/hr Q12H NASH Administration Protocol Dextrose 1,000 mls @ 100 mls/hr 01/03/18 07:15 01/03/18 16:51 Dextrose 5% In Water 1000 Ml IV 100 mls/hr .Q10H NASH Administration Fentanyl Citrate 1,000 mcg in 100 mls @ 2 mls/hr 01/03/18 17:03 01/03/18 18: 06 Fentanyl Citrate/Sodium Chloride 1 Mg/100 Ml IV 20 mcg/hr .Q24H PRN 2 mls/hr TITRATE PER MD ORDER Administration Protocol 20 MCG/HR Insulin Human Regular 0 units 01/02/18 16:30 01/03/18 16:36 Humulin R Low SC Not Given ACHS NASH Protocol Levalbuterol HCl 1.25 mg 12/31/17 18:28 01/03/18 13:16 Xopenex IH 1.25 mg [id number] PRN Administration Shortness of Breath Pantoprazole Sodium 40 mg 12/26/17 10:00 01/03/18 09:38 Protonix Inj IVP 40 mg DAILY NASH Administration Potassium Phos/Sodium Phos 1 pkt 12/31/17 14:00 12/31/17 18:50 Neutra-Phos PO 1 pkt TID NASH Administration - Patient Studies Lab Studies: Microbiology Studies 01/03/18 09:00 Gram Stain - Final Trachasp 01/02/18 07:00 Blood Culture - Preliminary Blood NO GROWTH AFTER 24 HOURS 01/02/18 06:45 Blood Culture - Preliminary Blood NO GROWTH AFTER 24 HOURS 12/28/17 17:00 Blood Culture - Final Blood NO GROWTH AFTER 5 DAYS Gram Stain - Final TEST NOT PERFORMED 12/28/17 16:30 Blood Culture - Final Blood NO GROWTH AFTER 5 DAYS Gram Stain - Final TEST NOT PERFORMED Lab Studies 01/03/18 01/03/18 01/03/18 Range/Units 15:48 13:59 11:51 WBC (4.5-11.0) 10^3/ul RBC (3.5-6.1) 10^6/uL Hgb (12.0-16.0) g/dL Hct (36.0-48.0) % MCV (80.0-105.0) fl MCH (25.0-35.0) pg MCHC (31.0-37.0) g/dl RDW (11.5-14.5) % Plt Count (120.0-450.0) 10^3/uL Gran % (50.0-68.0) % Lymph % (Auto) (22.0-35.0) % Gilchrist % (Auto) (1.0-6.0) % Eos % (Auto) (1.5-5.0) % Baso % (Auto) (0.0-3.0) % Gran # (1.4-6.5) Lymph # (Auto) (1.2-3.4) Gilchrist # (Auto) (0.1-0.6) Eos # (Auto) (0.0-0.7) Baso # (Auto) (0.0-2.0) K/mm3 PT (9.4-12.5) SECONDS INR APTT (25.1-36.5) Seconds Sodium (132-148) mmol/L Potassium (3.6-5.0) mmol/L Chloride (98-107) mmol/L Carbon Dioxide (21-33) mmol/L Anion Gap (10-20) BUN (7-21) mg/dL Creatinine (0.7-1.2) mg/dl Est GFR ( Amer) Est GFR (Non-Af Amer) POC Glucose (mg/dL) 65 74 68 (65-110) mg/dL Random Glucose (70-110) mg/dL Calcium (8.4-10.5) mg/dL Phosphorus (2.5-4.5) mg/dL Magnesium (1.7-2.2) mg/dL Total Bilirubin (0.2-1.3) mg/dL AST (14-36) U/L ALT (7-56) U/L Alkaline Phosphatase (38-126) U/L Total Protein (5.8-8.3) g/dL Albumin (3.0-4.8) g/dL Globulin gm/dL Albumin/Globulin Ratio (1.1-1.8) Procalcitonin (0.19-0.49) NG/ML 01/03/18 01/03/18 01/03/18 Range/Units 10:03 07:45 06:53 WBC (4.5-11.0) 10^3/ul RBC (3.5-6.1) 10^6/uL Hgb (12.0-16.0) g/dL Hct (36.0-48.0) % MCV (80.0-105.0) fl MCH (25.0-35.0) pg MCHC (31.0-37.0) g/dl RDW (11.5-14.5) % Plt Count (120.0-450.0) 10^3/uL Gran % (50.0-68.0) % Lymph % (Auto) (22.0-35.0) % Gilchrist % (Auto) (1.0-6.0) % Eos % (Auto) (1.5-5.0) % Baso % (Auto) (0.0-3.0) % Gran # (1.4-6.5) Lymph # (Auto) (1.2-3.4) Gilchrist # (Auto) (0.1-0.6) Eos # (Auto) (0.0-0.7) Baso # (Auto) (0.0-2.0) K/mm3 PT (9.4-12.5) SECONDS INR APTT (25.1-36.5) Seconds Sodium (132-148) mmol/L Potassium (3.6-5.0) mmol/L Chloride (98-107) mmol/L Carbon Dioxide (21-33) mmol/L Anion Gap (10-20) BUN (7-21) mg/dL Creatinine (0.7-1.2) mg/dl Est GFR ( Amer) Est GFR (Non-Af Amer) POC Glucose (mg/dL) 79 65 90 (65-110) mg/dL Random Glucose (70-110) mg/dL Calcium (8.4-10.5) mg/dL Phosphorus (2.5-4.5) mg/dL Magnesium (1.7-2.2) mg/dL Total Bilirubin (0.2-1.3) mg/dL AST (14-36) U/L ALT (7-56) U/L Alkaline Phosphatase (38-126) U/L Total Protein (5.8-8.3) g/dL Albumin (3.0-4.8) g/dL Globulin gm/dL Albumin/Globulin Ratio (1.1-1.8) Procalcitonin (0.19-0.49) NG/ML 01/03/18 01/03/18 01/03/18 Range/Units 05:00 05:00 05:00 WBC 15.2 H D (4.5-11.0) 10^3/ul RBC 2.69 L (3.5-6.1) 10^6/uL Hgb 7.5 L (12.0-16.0) g/dL Hct 21.8 L (36.0-48.0) % MCV 81.0 (80.0-105.0) fl MCH 27.9 (25.0-35.0) pg MCHC 34.4 (31.0-37.0) g/dl RDW 16.5 H (11.5-14.5) % Plt Count 45 L* (120.0-450.0) 10^3/uL Gran % 97.3 H (50.0-68.0) % Lymph % (Auto) 2.4 L (22.0-35.0) % Gilchrist % (Auto) 0.3 L (1.0-6.0) % Eos % (Auto) 0.0 L (1.5-5.0) % Baso % (Auto) 0.0 (0.0-3.0) % Gran # 14.78 H (1.4-6.5) Lymph # (Auto) 0.4 L (1.2-3.4) Gilchrist # (Auto) 0.0 L (0.1-0.6) Eos # (Auto) 0.0 (0.0-0.7) Baso # (Auto) 0.00 (0.0-2.0) K/mm3 PT 20.4 H (9.4-12.5) SECONDS INR 1.75 APTT 43.6 H (25.1-36.5) Seconds Sodium 149 H (132-148) mmol/L Potassium 2.8 L* D (3.6-5.0) mmol/L Chloride 111 H (98-107) mmol/L Carbon Dioxide 26 (21-33) mmol/L Anion Gap 16 (10-20) BUN 20 (7-21) mg/dL Creatinine 0.9 (0.7-1.2) mg/dl Est GFR ( Amer) > 60 Est GFR (Non-Af Amer) > 60 POC Glucose (mg/dL) (65-110) mg/dL Random Glucose 98 (70-110) mg/dL Calcium 8.0 L (8.4-10.5) mg/dL Phosphorus 2.2 L (2.5-4.5) mg/dL Magnesium 2.2 (1.7-2.2) mg/dL Total Bilirubin 1.0 (0.2-1.3) mg/dL AST 88 H D (14-36) U/L ALT 239 H (7-56) U/L Alkaline Phosphatase 384 H (38-126) U/L Total Protein 5.0 L (5.8-8.3) g/dL Albumin 2.6 L (3.0-4.8) g/dL Globulin 2.3 gm/dL Albumin/Globulin Ratio 1.1 (1.1-1.8) Procalcitonin (0.19-0.49) NG/ML 01/03/18 01/03/18 01/03/18 Range/Units 04:37 02:15 01:36 WBC (4.5-11.0) 10^3/ul RBC (3.5-6.1) 10^6/uL Hgb (12.0-16.0) g/dL Hct (36.0-48.0) % MCV (80.0-105.0) fl MCH (25.0-35.0) pg MCHC (31.0-37.0) g/dl RDW (11.5-14.5) % Plt Count (120.0-450.0) 10^3/uL Gran % (50.0-68.0) % Lymph % (Auto) (22.0-35.0) % Gilchrist % (Auto) (1.0-6.0) % Eos % (Auto) (1.5-5.0) % Baso % (Auto) (0.0-3.0) % Gran # (1.4-6.5) Lymph # (Auto) (1.2-3.4) Gilchrist # (Auto) (0.1-0.6) Eos # (Auto) (0.0-0.7) Baso # (Auto) (0.0-2.0) K/mm3 PT (9.4-12.5) SECONDS INR APTT (25.1-36.5) Seconds Sodium (132-148) mmol/L Potassium (3.6-5.0) mmol/L Chloride (98-107) mmol/L Carbon Dioxide (21-33) mmol/L Anion Gap (10-20) BUN (7-21) mg/dL Creatinine (0.7-1.2) mg/dl Est GFR ( Amer) Est GFR (Non-Af Amer) POC Glucose (mg/dL) 121 H 228 H 48 L (65-110) mg/dL Random Glucose (70-110) mg/dL Calcium (8.4-10.5) mg/dL Phosphorus (2.5-4.5) mg/dL Magnesium (1.7-2.2) mg/dL Total Bilirubin (0.2-1.3) mg/dL AST (14-36) U/L ALT (7-56) U/L Alkaline Phosphatase (38-126) U/L Total Protein (5.8-8.3) g/dL Albumin (3.0-4.8) g/dL Globulin gm/dL Albumin/Globulin Ratio (1.1-1.8) Procalcitonin (0.19-0.49) NG/ML 01/03/18 01/02/18 01/02/18 Range/Units 00:13 22:00 21:22 WBC (4.5-11.0) 10^3/ul RBC (3.5-6.1) 10^6/uL Hgb (12.0-16.0) g/dL Hct (36.0-48.0) % MCV (80.0-105.0) fl MCH (25.0-35.0) pg MCHC (31.0-37.0) g/dl RDW (11.5-14.5) % Plt Count (120.0-450.0) 10^3/uL Gran % (50.0-68.0) % Lymph % (Auto) (22.0-35.0) % Gilchrist % (Auto) (1.0-6.0) % Eos % (Auto) (1.5-5.0) % Baso % (Auto) (0.0-3.0) % Gran # (1.4-6.5) Lymph # (Auto) (1.2-3.4) Gilchrist # (Auto) (0.1-0.6) Eos # (Auto) (0.0-0.7) Baso # (Auto) (0.0-2.0) K/mm3 PT (9.4-12.5) SECONDS INR APTT (25.1-36.5) Seconds Sodium (132-148) mmol/L Potassium (3.6-5.0) mmol/L Chloride (98-107) mmol/L Carbon Dioxide (21-33) mmol/L Anion Gap (10-20) BUN (7-21) mg/dL Creatinine (0.7-1.2) mg/dl Est GFR ( Amer) Est GFR (Non-Af Amer) POC Glucose (mg/dL) 65 155 H 28 L* (65-110) mg/dL Random Glucose (70-110) mg/dL Calcium (8.4-10.5) mg/dL Phosphorus (2.5-4.5) mg/dL Magnesium (1.7-2.2) mg/dL Total Bilirubin (0.2-1.3) mg/dL AST (14-36) U/L ALT (7-56) U/L Alkaline Phosphatase (38-126) U/L Total Protein (5.8-8.3) g/dL Albumin (3.0-4.8) g/dL Globulin gm/dL Albumin/Globulin Ratio (1.1-1.8) Procalcitonin (0.19-0.49) NG/ML 01/02/18 01/02/18 Range/Units 17:04 08:10 WBC (4.5-11.0) 10^3/ul RBC (3.5-6.1) 10^6/uL Hgb (12.0-16.0) g/dL Hct (36.0-48.0) % MCV (80.0-105.0) fl MCH (25.0-35.0) pg MCHC (31.0-37.0) g/dl RDW (11.5-14.5) % Plt Count (120.0-450.0) 10^3/uL Gran % (50.0-68.0) % Lymph % (Auto) (22.0-35.0) % Gilchrist % (Auto) (1.0-6.0) % Eos % (Auto) (1.5-5.0) % Baso % (Auto) (0.0-3.0) % Gran # (1.4-6.5) Lymph # (Auto) (1.2-3.4) Gilchrist # (Auto) (0.1-0.6) Eos # (Auto) (0.0-0.7) Baso # (Auto) (0.0-2.0) K/mm3 PT (9.4-12.5) SECONDS INR APTT (25.1-36.5) Seconds Sodium (132-148) mmol/L Potassium (3.6-5.0) mmol/L Chloride (98-107) mmol/L Carbon Dioxide (21-33) mmol/L Anion Gap (10-20) BUN (7-21) mg/dL Creatinine (0.7-1.2) mg/dl Est GFR ( Amer) Est GFR (Non-Af Amer) POC Glucose (mg/dL) 124 H (65-110) mg/dL Random Glucose (70-110) mg/dL Calcium (8.4-10.5) mg/dL Phosphorus (2.5-4.5) mg/dL Magnesium (1.7-2.2) mg/dL Total Bilirubin (0.2-1.3) mg/dL AST (14-36) U/L ALT (7-56) U/L Alkaline Phosphatase (38-126) U/L Total Protein (5.8-8.3) g/dL Albumin (3.0-4.8) g/dL Globulin gm/dL Albumin/Globulin Ratio (1.1-1.8) Procalcitonin 35.62 H (0.19-0.49) NG/ML Laboratory Results - last 24 hr 01/02/18 01/02/18 01/02/18 08:10 17:04 21:22 WBC RBC Hgb Hct MCV MCH MCHC RDW Plt Count Gran % Lymph % (Auto) Gilchrist % (Auto) Eos % (Auto) Baso % (Auto) Gran # Lymph # (Auto) Gilchrist # (Auto) Eos # (Auto) Baso # (Auto) PT INR APTT Sodium Potassium Chloride Carbon Dioxide Anion Gap BUN Creatinine Est GFR ( Amer) Est GFR (Non-Af Amer) POC Glucose (mg/dL) 124 H 28 L* Random Glucose Calcium Phosphorus Magnesium Total Bilirubin AST ALT Alkaline Phosphatase Total Protein Albumin Globulin Albumin/Globulin Ratio Procalcitonin 35.62 H 01/02/18 01/03/18 01/03/18 22:00 00:13 01:36 WBC RBC Hgb Hct MCV MCH MCHC RDW Plt Count Gran % Lymph % (Auto) Gilchrist % (Auto) Eos % (Auto) Baso % (Auto) Gran # Lymph # (Auto) Gilchrist # (Auto) Eos # (Auto) Baso # (Auto) PT INR APTT Sodium Potassium Chloride Carbon Dioxide Anion Gap BUN Creatinine Est GFR ( Amer) Est GFR (Non-Af Amer) POC Glucose (mg/dL) 155 H 65 48 L Random Glucose Calcium Phosphorus Magnesium Total Bilirubin AST ALT Alkaline Phosphatase Total Protein Albumin Globulin Albumin/Globulin Ratio Procalcitonin 01/03/18 01/03/18 01/03/18 02:15 04:37 05:00 WBC 15.2 H D RBC 2.69 L Hgb 7.5 L Hct 21.8 L MCV 81.0 MCH 27.9 MCHC 34.4 RDW 16.5 H Plt Count 45 L* Gran % 97.3 H Lymph % (Auto) 2.4 L Gilchrist % (Auto) 0.3 L Eos % (Auto) 0.0 L Baso % (Auto) 0.0 Gran # 14.78 H Lymph # (Auto) 0.4 L Gilchrist # (Auto) 0.0 L Eos # (Auto) 0.0 Baso # (Auto) 0.00 PT INR APTT Sodium Potassium Chloride Carbon Dioxide Anion Gap BUN Creatinine Est GFR ( Amer) Est GFR (Non-Af Amer) POC Glucose (mg/dL) 228 H 121 H Random Glucose Calcium Phosphorus Magnesium Total Bilirubin AST ALT Alkaline Phosphatase Total Protein Albumin Globulin Albumin/Globulin Ratio Procalcitonin 01/03/18 01/03/18 01/03/18 05:00 05:00 06:53 WBC RBC Hgb Hct MCV MCH MCHC RDW Plt Count Gran % Lymph % (Auto) Gilchrist % (Auto) Eos % (Auto) Baso % (Auto) Gran # Lymph # (Auto) Gilchrist # (Auto) Eos # (Auto) Baso # (Auto) PT 20.4 H INR 1.75 APTT 43.6 H Sodium 149 H Potassium 2.8 L* D Chloride 111 H Carbon Dioxide 26 Anion Gap 16 BUN 20 Creatinine 0.9 Est GFR ( Amer) > 60 Est GFR (Non-Af Amer) > 60 POC Glucose (mg/dL) 90 Random Glucose 98 Calcium 8.0 L Phosphorus 2.2 L Magnesium 2.2 Total Bilirubin 1.0 AST 88 H D ALT 239 H Alkaline Phosphatase 384 H Total Protein 5.0 L Albumin 2.6 L Globulin 2.3 Albumin/Globulin Ratio 1.1 Procalcitonin 01/03/18 01/03/18 01/03/18 07:45 10:03 11:51 WBC RBC Hgb Hct MCV MCH MCHC RDW Plt Count Gran % Lymph % (Auto) Gilchrist % (Auto) Eos % (Auto) Baso % (Auto) Gran # Lymph # (Auto) Gilchrist # (Auto) Eos # (Auto) Baso # (Auto) PT INR APTT Sodium Potassium Chloride Carbon Dioxide Anion Gap BUN Creatinine Est GFR ( Amer) Est GFR (Non-Af Amer) POC Glucose (mg/dL) 65 79 68 Random Glucose Calcium Phosphorus Magnesium Total Bilirubin AST ALT Alkaline Phosphatase Total Protein Albumin Globulin Albumin/Globulin Ratio Procalcitonin 01/03/18 01/03/18 13:59 15:48 WBC RBC Hgb Hct MCV MCH MCHC RDW Plt Count Gran % Lymph % (Auto) Gilchrist % (Auto) Eos % (Auto) Baso % (Auto) Gran # Lymph # (Auto) Gilchrist # (Auto) Eos # (Auto) Baso # (Auto) PT INR APTT Sodium Potassium Chloride Carbon Dioxide Anion Gap BUN Creatinine Est GFR ( Amer) Est GFR (Non-Af Amer) POC Glucose (mg/dL) 74 65 Random Glucose Calcium Phosphorus Magnesium Total Bilirubin AST ALT Alkaline Phosphatase Total Protein Albumin Globulin Albumin/Globulin Ratio Procalcitonin Addendum Addendum: 01/03/18 18:26 ICU Attending Addendum: Patient seen and examined. Case reviewed on round with housestaff. Agree with resident note above with the following additions/exceptions: 42 with mental retardation admitted with a seizure like episode, hypothermia and hypoglycemia, bradycardia likely secondary to shock no resolved however recently developed acute resp failure now being tx for ARDS. Intubated 01/01 From an ARDS perspective, she is improving. CXR is better today. pA02 is 82% on PEEP of 10, will come down to PEEP 8 on 40%fio02 cont PRVC, low VT ventilation (6cc/kg ideal BW) will accept permissive hypercapnia hold diuresis for today replace lytes, low K check q 4hours ok with albumin hypoglycemic overnight will place on d5 drop at 50cc/hr still on zosyn and vanc having diarrhea check cdiff possible infectious vs refeeding slow feeds for now f/u ethics Rest of care as noted above. Quinton Ruffin MD Theology Teacher Critical Care Time: 30mins
[2018-01-03] MEDS ORDERED: Fentanyl 1000mcg/100ml NS 1,000 MCG/100 ML BAG IV PRN (17:03)
--- NOTE | 2018-01-03 17:10 | CP.PCM.PN ---
<Russ Reid Jose - Last Filed: 01/03/18 17:06> Subjective - Date & Time of Evaluation Date of Evaluation: 01/03/18 Time of Evaluation: 17:07 - Subjective Subjective: Medicine progress note: Jeanette PGY - 2 IM Resident Patient seen and examined at bedside. Per nursing, patient has been a little agitated and has been tugging at the tube. Patient is more alert than she was yesterday, history still limited 2/2 patient's developmental delay. Objective - Vital Signs/Intake and Output Vital Signs (last 24 hours): Temp Pulse Resp BP Pulse Ox 98.4 F 129 H 24 117/75 93 L 01/03/18 08:00 01/03/18 08:00 01/03/18 07:23 01/03/18 08:00 01/03/18 08:00 Intake and Output: 01/03/18 01/03/18 06:59 18:59 Intake Total 1160 Output Total 1725 Balance -565 - Medications Medications: Current Medications Albumin Human (Albumin Human 25% (12.5 Gm/50 Ml)) 12.5 gm IV Q4 NASH Last Admin: 01/03/18 16:50 Dose: 12.5 gm Bacitracin (Bacitracin) 1 gm TOP TID NASH Last Admin: 01/03/18 15:01 Dose: 1 gm Dextrose (Dextrose 50% Inj) 25 ml IVP ONCE PRN PRN Reason: Hypoglycemia Last Admin: 01/03/18 01:42 Dose: 25 ml Levetiracetam (Keppra 500mg Ivpb) 500 mg in 100 mls @ 460 mls/hr IV Q12 NAS[facility] Last Admin: 01/03/18 09:29 Dose: 460 mls/hr Piperacillin Sod/Tazobactam Sod (Zosyn 3.375 In Ns 100ml) 100 mls @ 200 mls/hr IVPB Q6 [facility] PRN Reason: Protocol Stop: 01/08/18 19:56 Last Admin: 01/03/18 12:15 Dose: 200 mls/hr Vasopressin 20 units/ Sodium (Chloride) 101 mls @ 9.09 mls/hr IV .Q11H7M NASH; 0.03 U/MIN PRN Reason: Protocol Last Admin: 01/02/18 13:10 Dose: Not Given Norepinephrine Bitartrate 8 mg (/ Sodium Chloride) 508 mls @ 15.24 mls/hr IV .Q24H PRN; Protocol; 4 MCG/MIN PRN Reason: TITRATE PER MD ORDER Vancomycin HCl (Vancomycin 1gm) 1 gm in 250 mls @ 167 mls/hr IVPB Q12H NASH PRN Reason: Protocol Stop: 01/11/18 16:31 Last Admin: 01/03/18 16:49 Dose: 167 mls/hr Dextrose (Dextrose 5% In Water 1000 Ml) 1,000 mls @ 100 mls/hr IV .Q10H [facility] Last Admin: 01/03/18 16:51 Dose: 100 mls/hr Potassium Chloride (Potassium Chloride 20 Meq/100 Ml) 20 meq in 100 mls @ 50 mls/hr IVPB Q2H [facility] Stop: 01/03/18 17:14 Last Admin: 01/03/18 16:50 Dose: 50 mls/hr Fentanyl Citrate (Fentanyl Citrate/Sodium Chloride 1 Mg/100 Ml) 1,000 mcg in 100 mls @ 2 mls/hr IV .Q24H PRN; Protocol; 20 MCG/HR PRN Reason: TITRATE PER MD ORDER Insulin Human Regular (Humulin R Low) 0 units SC ACHS NASH PRN Reason: Protocol Last Admin: 01/03/18 16:36 Dose: Not Given Levalbuterol HCl (Xopenex) 1.25 mg IH [id number] PRN PRN Reason: Shortness of Breath Last Admin: 01/03/18 13:16 Dose: 1.25 mg Pantoprazole Sodium (Protonix Inj) 40 mg IVP DAILY [facility] Last Admin: 01/03/18 09:38 Dose: 40 mg Potassium Phos/Sodium Phos (Neutra-Phos) 1 pkt PO TID [facility] Last Admin: 12/31/17 18:50 Dose: 1 pkt - Labs Labs: 01/03/18 05:00 01/03/18 05:00 PT 20.4 SECONDS (9.4-12.5) H 01/03/18 05:00 INR 1.75 01/03/18 05:00 APTT 43.6 Seconds (25.1-36.5) H 01/03/18 05:00 - Constitutional Appears: Cachectic, Chronically Ill - Head Exam Head Exam: ATRAUMATIC, NORMAL INSPECTION, NORMOCEPHALIC - Eye Exam Eye Exam: EOMI, Normal appearance, PERRL Pupil Exam: NORMAL ACCOMODATION, PERRL - ENT Exam ENT Exam: Mucous Membranes Moist Additional comments: very poor dentition with missing teeth and loose teeth - Neck Exam Neck Exam: Full ROM, Normal Inspection. absent: Lymphadenopathy - Respiratory Exam Respiratory Exam: Clear to Ausculation Bilateral, NORMAL BREATHING PATTERN - Cardiovascular Exam Cardiovascular Exam: REGULAR RHYTHM, +S1, +S2. absent: Murmur - GI/Abdominal Exam GI & Abdominal Exam: Soft, Normal Bowel Sounds. absent: Tenderness - Extremities Exam Extremities Exam: Full ROM, Normal Capillary Refill. absent: Joint Swelling, Pedal Edema Additional comments: Patient has splotchy skin bilaterally, indicative of anasarca. Unable to assess patient's ability for full ROM given mental status. - Back Exam Back Exam: NORMAL INSPECTION - Neurological Exam Neurological Exam: Alert, Awake, CN II-XII Intact, Normal Gait, Oriented x3 - Psychiatric Exam Psychiatric exam: Normal Affect, Normal Mood - Skin Skin Exam: Dry, Intact, Normal Color, Warm Assessment and Plan - Assessment and Plan (Free Text) Assessment: 42 year old female admitted for altered mental status with possible septic shock in the setting of multi-organ failure including liver failure, lactic acidosis, and complicated by possible DIC. Patient might have had initial HCAP Aspiration Pna causing the initial septic shock. 2 new things to note: Patient became acutely hypokalemic this morning; several KCl's were given in addition to K Phos. In addition, patient's anemia worsened in conjunction with .4 elevation in baseline CR. This is concerning for GI bleed. Plan: Acute Hypoxemic Respiratory Failure, likely 2/2 ARDS - Developed episode on 01/01/18 requiring intubation by ICU team - Pt on PRVC, setting 300/16/10/40; O2 sat 90%, RR 25, continue to monitor. Peak Pressure of 26 - Will re-start patient's fentanyl drip - Continue with lung-protective ventilation strategy AMS, likely 2/2 Post Ictal State VS Septic Shock - Continue to treat sepsis to treat AMS. Patient relatively back at baseline Seizure - resolved - On Keppra Septic Shock - Resolved - Patient is off of pressors - Continue with Zosyn and Vanc Acute Anemia - FOBT sent Thrombocytopenia, likely 2/2 DIC - Fibrin degradation products, d-dimer, and fibrinogen results indicate DIC - Treating Septic shock will treat DIC - Patient has been off of Heparin for many days now Acute liver failure - improving since admission - CT Chest/abd/pelvis findings as described above - Abd U/s 12/28: atrophied liver, diffuse increased echogenicity in liver may reflect hepatic steatosis however parenchymal infectious/inflammatory etiologies cannot be excluded; b/l renal atrophy - LFts trending down today - Hepatitis and HIV work-up neg - Acetaminophen levels neg - GI consulted, recs appreciated: at this point, no new recommednations from GI - Anti-mitochondrial Ab neg, smooth muscle Ab neg Fx L Ribs 7-9 CT chest/abd/pelvis findings as listed above Ribs XR: fxs in L 7th and 8th ribs Continue to monitor GI/DVT ppx: Protonix; Heparin held due to low platelets, SCDs <Jovi Granger - Last Filed: 01/03/18 20:29> Objective - Vital Signs/Intake and Output Vital Signs (last 24 hours): Temp Pulse Resp BP Pulse Ox 95 F L 70 24 117/75 93 L 01/03/18 16:00 01/03/18 10:00 01/03/18 07:23 01/03/18 08:00 01/03/18 08:00 Intake and Output: 01/03/18 01/04/18 18:59 06:59 Intake Total 100 Balance 100 - Medications Medications: Current Medications Albumin Human (Albumin Human 25% (12.5 Gm/50 Ml)) 12.5 gm IV Q4 [facility] Last Admin: 01/03/18 16:50 Dose: 12.5 gm Bacitracin (Bacitracin) 1 gm TOP TID NASH Last Admin: 01/03/18 15:01 Dose: 1 gm Dextrose (Dextrose 50% Inj) 25 ml IVP ONCE PRN PRN Reason: Hypoglycemia Last Admin: 01/03/18 18:24 Dose: 25 ml Levetiracetam (Keppra 500mg Ivpb) 500 mg in 100 mls @ 460 mls/hr IV Q12 NASH Last Admin: 01/03/18 09:29 Dose: 460 mls/hr Piperacillin Sod/Tazobactam Sod (Zosyn 3.375 In Ns 100ml) 100 mls @ 200 mls/hr IVPB Q6 NASH PRN Reason: Protocol Stop: 01/08/18 19:56 Last Admin: 01/03/18 17:50 Dose: 200 mls/hr Norepinephrine Bitartrate 8 mg (/ Sodium Chloride) 508 mls @ 15.24 mls/hr IV .Q24H PRN; Protocol; 4 MCG/MIN PRN Reason: TITRATE PER MD ORDER Vancomycin HCl (Vancomycin 1gm) 1 gm in 250 mls @ 167 mls/hr IVPB Q12H [facility]H PRN Reason: Protocol Stop: 01/11/18 16:31 Last Admin: 01/03/18 16:49 Dose: 167 mls/hr Dextrose (Dextrose 5% In Water 1000 Ml) 1,000 mls @ 100 mls/hr IV .Q10H NASH Last Admin: 01/03/18 16:51 Dose: 100 mls/hr Fentanyl Citrate (Fentanyl Citrate/Sodium Chloride 1 Mg/100 Ml) 1,000 mcg in 100 mls @ 2 mls/hr IV .Q24H PRN; Protocol; 20 MCG/HR PRN Reason: TITRATE PER MD ORDER Last Admin: 01/03/18 18:06 Dose: 20 mcg/hr, 2 mls/hr Insulin Human Regular (Humulin R Low) 0 units SC ACHS NASH PRN Reason: Protocol Last Admin: 01/03/18 16:36 Dose: Not Given Levalbuterol HCl (Xopenex) 1.25 mg IH [id number] PRN PRN Reason: Shortness of Breath Last Admin: 01/03/18 13:16 Dose: 1.25 mg Pantoprazole Sodium (Protonix Inj) 40 mg IVP DAILY [facility] Last Admin: 01/03/18 09:38 Dose: 40 mg Potassium Phos/Sodium Phos (Neutra-Phos) 1 pkt PO TID [facility] Last Admin: 12/31/17 18:50 Dose: 1 pkt - Labs Labs: 01/03/18 05:00 01/03/18 05:00 PT 20.4 SECONDS (9.4-12.5) H 01/03/18 05:00 INR 1.75 01/03/18 05:00 APTT 43.6 Seconds (25.1-36.5) H 01/03/18 05:00 Attending/Attestation - Attestation I have personally seen and examined this patient.: Yes I have fully participated in the care of the patient.: Yes I have reviewed all pertinent clinical information, including history, physical exam and plan: Yes Notes (Text): 01/03/18 20:27 Patient seen and examined at bedside. Overnight issues reviewed. Labs, vitals and orders reviewed. Multi-speciality follow up ongoing. Agree with the plan of care as discussed and outlined by the resident for treatment of ARDS and severe sepsis..
[2018-01-03] MEDS: Fentanyl 1000mcg/100ml NS 1,000 MCG/100 ML BAG IV PRN (17:50)
[2018-01-03] MEDS ORDERED: Dextrose 50% SYRINGE Inj (50 ml) ONE (18:23)
[2018-01-04 00:54] LABS: BLOOD UREA NITROGEN 25 mg/dL (7-21); CALCIUM 7.6 mg/dL (8.4-10.5); GFR NON-AFRICAN AMERICAN > 60
[2018-01-04] MEDS: Albumin Human 25% (12.5 gm/50 ml) IV SCH ×6 (01:00→21:16)
[2018-01-04] MEDS ORDERED: Dextrose 50% SYRINGE Inj (50 ml) ONE (04:31)
[2018-01-04] MEDS: Dextrose 50% SYRINGE Inj (50 ml) IVP PRN (04:31)
[2018-01-04] MEDS: Vancomycin 1gm in NS 250ml 1 GM/250 ML BAG IVPB SCH ×3 (05:07→19:01)
[2018-01-04] MEDS: Piperacillin/Tazobact 3.375 gm 100 ML IVPB SCH ×4 (05:09→20:28)
--- NOTE | 2018-01-04 08:19 | CP.CCUPN ---
<Tenzin Welch - Last Filed: 01/04/18 18:49> CCU Subjective - Physician Review Subjective (Free Text): Tenzin Welch DO PGY1 - Internal Medicine [employer] Manager - ICU Progress Note Seen and examined this AM at bedside; No issues reported overnight. Throughout day today patient became HD unstable briefly requiring pressor support. Central line was subsequently inserted in order to gain better access. Complicated w/ heavy bleeding. Bleeding was subsequently controlled w/ use of hemostatic powder/ avitene. 01/04/18 18:48 Critical Care Time Spent (in minutes): 60 CCU Objective - Vital Signs / Intake & Output Vital Signs (Last 4 hours): Vital Signs Temp Pulse BP Pulse Ox 01/04/18 08:00 95.7 F L 68 117/80 96 01/04/18 07:30 95.4 F L 74 105/68 95 01/04/18 07:24 95.2 F L 72 93/62 L 76 L 01/04/18 07:10 95.2 F L 70 104/72 83 L 01/04/18 07:00 95.2 F L 68 106/79 83 L 01/04/18 06:30 95.2 F L 70 107/72 83 L 01/04/18 06:00 95.2 F L 70 116/80 90 L 01/04/18 05:54 95.2 F L 67 01/04/18 05:53 95.2 F L 74 01/04/18 05:52 95.2 F L 71 01/04/18 05:51 95.2 F L 80 01/04/18 05:50 95.2 F L 81 01/04/18 05:49 95.2 F L 74 01/04/18 05:46 95.2 F L 72 01/04/18 05:45 95.2 F L 75 01/04/18 05:44 95.2 F L 75 01/04/18 05:43 95.2 F L 76 01/04/18 05:42 95.2 F L 76 01/04/18 05:40 95.2 F L 73 01/04/18 05:39 95.2 F L 77 01/04/18 05:38 95.2 F L 77 01/04/18 05:37 95.2 F L 78 01/04/18 05:36 95.2 F L 79 01/04/18 05:35 95.2 F L 74 01/04/18 05:34 95.2 F L 76 01/04/18 05:33 95.2 F L 74 01/04/18 05:32 95.0 F L 77 01/04/18 05:31 95.0 F L 82 01/04/18 05:30 117/42 L 01/04/18 05:29 95.0 F L 77 01/04/18 05:28 95.0 F L 79 01/04/18 05:27 94.8 F L 78 01/04/18 05:26 95.2 F L 77 01/04/18 05:25 90.9 F L 78 01/04/18 05:24 91.0 F L 78 01/04/18 05:23 90.9 F L 77 01/04/18 05:22 90.0 F L 80 01/04/18 05:21 94.6 F L 80 01/04/18 05:20 95.9 F L 78 01/04/18 05:19 96.1 F L 78 01/04/18 05:18 96.1 F L 79 01/04/18 05:17 96.1 F L 79 01/04/18 05:16 96.1 F L 76 Intake and Output (Last 8hrs): Intake & Output 01/03/18 01/04/18 01/04/18 22:59 06:59 14:59 Intake Total 2830 1720 Output Total 150 100 Balance 2680 1620 Intake: IV 2750 1720 D50 1200 1000 Left Upper arm 1200 Right Hand 420 albumin 150 300 keppra 100 Oral 0 Tube Feeding 80 Output: Urine 150 100 Urethral (Jimenez) 150 100 Other: # Bowel Movements 1 - Physical Exam Physical Exam Limitations: Positive for: Other (Sedatd on fentanyl drip; Arousable to sternal rub and voice ) Head: Positive for: Atraumatic, Normocephalic Pupils: Positive for: PERRL Extroacular Muscles: Positive for: EOMI Conjunctiva: Positive for: Normal Mouth: Positive for: Other (POOR DENTITION; intubated) Neck: Positive for: Other (Central line access in place. Dressing dirty. No longer oozing. ) Respiratory/Chest: Positive for: Rhonchi (bilaterally), Other (intubated on PRVC mode). Negative for: Accessory Muscle Use, Wheezes, Decreased Breath Sounds, Rales, Retracting, Tender to Palpation Cardiovascular: Positive for: Regular Rate and Rhythm, Normal S1, S2. Negative for: Murmurs Abdomen: Positive for: Normal Bowel Sounds, Other (Soft; ). Negative for: Tenderness, Distention, Peritoneal Signs, Rebound, Guarding, McBurney's Point Tender, Rovsing's Sign Present, Hernias, Feeding Tubes, Ostomy Tubes, Mass/ Organomegaly, Scars Back: Positive for: Normal Inspection Upper Extremity: Positive for: Normal Inspection. Negative for: Cyanosis, Edema Lower Extremity: Positive for: Normal Inspection, NORMAL PULSES (Pulses diminished BL). Negative for: Edema Neurological: Positive for: Other (Sedated on fentanyl drip; Moves extremities spontaneously; R eye dilated sluggish, L eye constricted reactive. Pupils are unequal ) Skin: Positive for: Warm, Dry, Normal Color. Negative for: Rashes Psychiatric: Positive for: Alert, Lethargic - Medications Active Medications: Active Medications Generic Name Dose Route Start Last Admin Trade Name Freq PRN Reason Stop Dose Admin Albumin Human 12.5 gm 01/02/18 16:00 01/04/18 05:11 Albumin Human 25% (12.5 Gm/50 Ml) IV 12.5 gm Q4 NASH Administration Bacitracin 1 gm 01/02/18 18:00 01/03/18 15:01 Bacitracin TOP 1 gm TID NASH Administration Dextrose 25 ml 01/03/18 00:48 01/03/18 18:24 Dextrose 50% Inj IVP 25 ml ONCE PRN Administration Hypoglycemia Levetiracetam 500 mg in 100 mls @ 460 mls/hr 12/27/17 07:57 01/03/18 21:18 Keppra 500mg Ivpb IV 460 mls/hr Q12 NASH Administration Piperacillin Sod/Tazobactam Sod 100 mls @ 200 mls/hr 12/30/17 19:55 01/04/18 05:09 Zosyn 3.375 In Ns 100ml IVPB 01/08/18 19:56 200 mls/hr Q6 NASH Administration Protocol Norepinephrine Bitartrate 8 mg 508 mls @ 15.24 mls/hr 01/01/18 20:12 / Sodium Chloride IV .Q24H PRN TITRATE PER MD ORDER Protocol 4 MCG/MIN Vancomycin HCl 1 gm in 250 mls @ 167 mls/hr 01/02/18 16:30 01/04/18 05:07 Vancomycin 1gm IVPB 01/11/18 16:31 167 mls/hr Q12H NASH Administration Protocol Dextrose 1,000 mls @ 100 mls/hr 01/03/18 07:15 01/04/18 05:01 Dextrose 5% In Water 1000 Ml IV 100 mls/hr .Q10H NASH Administration Fentanyl Citrate 1,000 mcg in 100 mls @ 2 mls/hr 01/03/18 17:03 01/03/18 18: 06 Fentanyl Citrate/Sodium Chloride 1 Mg/100 Ml IV 20 mcg/hr .Q24H PRN 2 mls/hr TITRATE PER MD ORDER Administration Protocol 20 MCG/HR Insulin Human Regular 0 units 01/02/18 16:30 01/03/18 16:36 Humulin R Low SC Not Given ACHS NASH Protocol Levalbuterol HCl 1.25 mg 12/31/17 18:28 01/03/18 13:16 Xopenex IH 1.25 mg [id number] PRN Administration Shortness of Breath Pantoprazole Sodium 40 mg 12/26/17 10:00 01/03/18 09:38 Protonix Inj IVP 40 mg DAILY NASH Administration Potassium Phos/Sodium Phos 1 pkt 12/31/17 14:00 12/31/17 18:50 Neutra-Phos PO 1 pkt TID NASH Administration - Patient Studies Lab Studies: Microbiology Studies 01/02/18 07:00 Blood Culture - Preliminary Blood NO GROWTH AFTER 48 HOURS 01/02/18 06:45 Blood Culture - Preliminary Blood NO GROWTH AFTER 48 HOURS 01/03/18 09:00 Gram Stain - Final Trachasp Lab Studies 01/04/18 01/04/18 01/04/18 Range/Units 05:58 05:07 04:28 Sodium (132-148) mmol/L Potassium (3.6-5.0) mmol/L Chloride (98-107) mmol/L Carbon Dioxide (21-33) mmol/L Anion Gap (10-20) BUN (7-21) mg/dL Creatinine (0.7-1.2) mg/dl Est GFR ( Amer) Est GFR (Non-Af Amer) POC Glucose (mg/dL) 208 H 184 H 60 L (65-110) mg/dL Random Glucose (70-110) mg/dL Calcium (8.4-10.5) mg/dL 01/04/18 01/04/18 01/03/18 Range/Units 00:30 00:09 21:45 Sodium 144 (132-148) mmol/L Potassium 5.1 H (3.6-5.0) mmol/L Chloride 110 H (98-107) mmol/L Carbon Dioxide 20 L (21-33) mmol/L Anion Gap 19 (10-20) BUN 25 H (7-21) mg/dL Creatinine 1.0 (0.7-1.2) mg/dl Est GFR ( Amer) > 60 Est GFR (Non-Af Amer) > 60 POC Glucose (mg/dL) 111 H 112 H (65-110) mg/dL Random Glucose 96 (70-110) mg/dL Calcium 7.6 L (8.4-10.5) mg/dL 01/03/18 01/03/18 01/03/18 Range/Units 20:01 18:20 15:48 Sodium (132-148) mmol/L Potassium (3.6-5.0) mmol/L Chloride (98-107) mmol/L Carbon Dioxide (21-33) mmol/L Anion Gap (10-20) BUN (7-21) mg/dL Creatinine (0.7-1.2) mg/dl Est GFR ( Amer) Est GFR (Non-Af Amer) POC Glucose (mg/dL) 165 H 37 L* 65 (65-110) mg/dL Random Glucose (70-110) mg/dL Calcium (8.4-10.5) mg/dL 01/03/18 01/03/18 01/03/18 Range/Units 13:59 11:51 10:03 Sodium (132-148) mmol/L Potassium (3.6-5.0) mmol/L Chloride (98-107) mmol/L Carbon Dioxide (21-33) mmol/L Anion Gap (10-20) BUN (7-21) mg/dL Creatinine (0.7-1.2) mg/dl Est GFR ( Amer) Est GFR (Non-Af Amer) POC Glucose (mg/dL) 74 68 79 (65-110) mg/dL Random Glucose (70-110) mg/dL Calcium (8.4-10.5) mg/dL Laboratory Results - last 24 hr 01/03/18 01/03/18 01/03/18 10:03 11:51 13:59 Sodium Potassium Chloride Carbon Dioxide Anion Gap BUN Creatinine Est GFR ( Amer) Est GFR (Non-Af Amer) POC Glucose (mg/dL) 79 68 74 Random Glucose Calcium 01/03/18 01/03/18 01/03/18 15:48 18:20 20:01 Sodium Potassium Chloride Carbon Dioxide Anion Gap BUN Creatinine Est GFR ( Amer) Est GFR (Non-Af Amer) POC Glucose (mg/dL) 65 37 L* 165 H Random Glucose Calcium 01/03/18 01/04/18 01/04/18 21:45 00:09 00:30 Sodium 144 Potassium 5.1 H Chloride 110 H Carbon Dioxide 20 L Anion Gap 19 BUN 25 H Creatinine 1.0 Est GFR ( Amer) > 60 Est GFR (Non-Af Amer) > 60 POC Glucose (mg/dL) 112 H 111 H Random Glucose 96 Calcium 7.6 L 01/04/18 01/04/18 01/04/18 04:28 05:07 05:58 Sodium Potassium Chloride Carbon Dioxide Anion Gap BUN Creatinine Est GFR ( Amer) Est GFR (Non-Af Amer) POC Glucose (mg/dL) 60 L 184 H 208 H Random Glucose Calcium Fingerstick Blood Sugar Results: 184 Review of Systems - Review of Systems Systems not reviewed;Unavailable: Other (Sedated/ Mental Baseline) Critical Care Progress Note - Ventilator Checklist Head of Bed 30 Degrees: Yes Daily Sedation Vacation: Yes Daily Assessment of Readiness to Wean: Yes Daily Spontaneous Breathing Trial: Yes <Quinton Ruffin - Last Filed: 01/04/18 19:38> CCU Subjective - Physician Review Critical Care Time Spent (in minutes): 0 CCU Objective - Vital Signs / Intake & Output Vital Signs (Last 4 hours): Vital Signs Temp Pulse Resp BP 01/04/18 17:11 96.7 F L 55 L 38 H 70/35 L 01/04/18 17:01 74/30 L Intake and Output (Last 8hrs): Intake & Output 01/04/18 01/04/18 01/04/18 06:59 14:59 22:59 Intake Total 1720 70 375 Output Total 100 Balance 1620 70 375 Intake: IV 1720 70 D50 1000 Right Hand 420 albumin 300 Blood Product 0 325 Red Blood Cells Cpd As1 0 325 Lr Unit [id number] Other 50 Red Blood Cells Cpd As1 50 Lr Unit [id number] Output: Urine 100 Urethral (Jimenez) 100 - Medications Active Medications: Active Medications Generic Name Dose Route Start Last Admin Trade Name Freq PRN Reason Stop Dose Admin Albumin Human 12.5 gm 01/02/18 16:00 01/04/18 18:56 Albumin Human 25% (12.5 Gm/50 Ml) IV 12.5 gm Q4 NASH Administration Bacitracin 1 gm 01/02/18 18:00 01/04/18 18:56 Bacitracin TOP 1 gm TID NASH Administration Dextrose 25 ml 01/03/18 00:48 01/04/18 04:31 Dextrose 50% Inj IVP 25 ml ONCE PRN Administration Hypoglycemia Levetiracetam 500 mg in 100 mls @ 460 mls/hr 12/27/17 07:57 01/04/18 09:52 Keppra 500mg Ivpb IV 460 mls/hr Q12 NASH Administration Piperacillin Sod/Tazobactam Sod 100 mls @ 200 mls/hr 12/30/17 19:55 01/04/18 13:58 Zosyn 3.375 In Ns 100ml IVPB 01/08/18 19:56 200 mls/hr Q6 NASH Administration Protocol Norepinephrine Bitartrate 8 mg 508 mls @ 15.24 mls/hr 01/01/18 20:12 / Sodium Chloride IV .Q24H PRN TITRATE PER MD ORDER Protocol 4 MCG/MIN Vancomycin HCl 1 gm in 250 mls @ 167 mls/hr 01/02/18 16:30 01/04/18 19:01 Vancomycin 1gm IVPB 01/11/18 16:31 167 mls/hr Q12H NASH Administration Protocol Dextrose 1,000 mls @ 100 mls/hr 01/03/18 07:15 01/04/18 19:05 Dextrose 5% In Water 1000 Ml IV 100 mls/hr .Q10H NASH Administration Fentanyl Citrate 1,000 mcg in 100 mls @ 2 mls/hr 01/03/18 17:03 01/04/18 07: 45 Fentanyl Citrate/Sodium Chloride 1 Mg/100 Ml IV 0 mcg/hr .Q24H PRN 0 mls/hr TITRATE PER MD ORDER Titration Protocol 20 MCG/HR Vasopressin 20 units/ Dextrose 101 mls @ 9.09 mls/hr 01/04/18 16:15 01/04/18 17:01 IV 9.09 mls/hr .[id number] NASH Administration Protocol 0.03 U/MIN NOREPINEPHRINE BIT/0.9 % NACL 4 mg in 250 mls @ 15 mls/hr 01/04/18 15:47 06/22 16:56 Levophed 4 Mg/ 250 Ml Ns Premixed IV 20 mcg/min .[id number] PRN 75 mls/hr TITRATE PER MD ORDER Administration Protocol 4 MCG/MIN Midazolam 100 mg/100ml in NS 100 mg in 100 mls @ 1 mls/hr 01/04/18 17:17 06/22 18:57 Midazolam 100 Mg/100ml In Ns IV 1 mg/hr .Q24H PRN 1 mls/hr Agitation Administration Protocol 1 MG/HR Insulin Human Regular 0 units 01/02/18 16:30 01/04/18 16:54 Humulin R Low SC Not Given ACHS NASH Protocol Levalbuterol HCl 1.25 mg 12/31/17 18:28 01/03/18 13:16 Xopenex IH 1.25 mg [id number] PRN Administration Shortness of Breath Pantoprazole Sodium 40 mg 12/26/17 10:00 01/04/18 09:52 Protonix Inj IVP 40 mg DAILY NASH Administration Potassium Phos/Sodium Phos 1 pkt 12/31/17 14:00 12/31/17 18:50 Neutra-Phos PO 1 pkt TID NASH Administration - Patient Studies Lab Studies: Microbiology Studies 01/03/18 09:00 Gram Stain - Final Trachasp Sputum Culture - Preliminary NORMAL ORAL MAYURI 01/02/18 07:00 Blood Culture - Preliminary Blood NO GROWTH AFTER 48 HOURS 01/02/18 06:45 Blood Culture - Preliminary Blood NO GROWTH AFTER 48 HOURS Lab Studies 01/04/18 01/04/18 01/04/18 Range/Units 18:59 18:59 18:59 WBC 10.4 D (4.5-11.0) 10^3/ul RBC 2.58 L (3.5-6.1) 10^6/uL Hgb 7.4 L (12.0-16.0) g/dL Hct 21.4 L (36.0-48.0) % MCV 82.9 (80.0-105.0) fl MCH 28.7 (25.0-35.0) pg MCHC 34.6 (31.0-37.0) g/dl RDW 16.6 H (11.5-14.5) % Plt Count 28 L* (120.0-450.0) 10^3/uL Gran % (50.0-68.0) % Lymph % (Auto) (22.0-35.0) % Hunt % (Auto) (1.0-6.0) % Eos % (Auto) (1.5-5.0) % Baso % (Auto) (0.0-3.0) % Gran # (1.4-6.5) Lymph # (Auto) (1.2-3.4) Hunt # (Auto) (0.1-0.6) Eos # (Auto) (0.0-0.7) Baso # (Auto) (0.0-2.0) K/mm3 PT (9.4-12.5) SECONDS INR APTT (25.1-36.5) Seconds pCO2 (35-45) mm/Hg pO2 (80-100) mm/Hg HCO3 (21-28) mmol/L ABG pH (7.35-7.45) ABG Total CO2 (22-28) mmol.L ABG O2 Saturation (95-98) % ABG O2 Content (15-23) ML/dl ABG Base Excess (-2.0-3.0) mmol/L ABG Hemoglobin (11.7-17.4) g/dL ABG Carboxyhemoglobin (0.5-1.5) % POC ABG HHb (Measured) (0-5) % ABG Methemoglobin (0.0-3.0) % ABG O2 Capacity (16-24) mL/dl ABG Potassium (3.6-5.2) mmol/L Hgb O2 Saturation (95.0-98.0) % Glucose (65-105) mg/dl Lactate (0.7-2.1) mmol/L Mechanical Rate FiO2 % Tidal Volume PEEP Sodium 140 (132-148) mmol/L Potassium 4.0 (3.6-5.0) mmol/L Chloride 105 (98-107) mmol/L Carbon Dioxide 16 L (21-33) mmol/L Anion Gap 23 H (10-20) BUN 27 H (7-21) mg/dL Creatinine 1.3 H (0.7-1.2) mg/dl Est GFR ( Amer) 54 Est GFR (Non-Af Amer) 44 POC Glucose (mg/dL) (65-110) mg/dL Random Glucose 118 H (70-110) mg/dL Lactic Acid 5.5 H* (0.7-2.1) mmol/L Calcium 6.6 L* (8.4-10.5) mg/dL Phosphorus (2.5-4.5) mg/dL Magnesium (1.7-2.2) mg/dL Total Bilirubin 4.0 H (0.2-1.3) mg/dL AST 182 H D (14-36) U/L ALT 196 H (7-56) U/L Alkaline Phosphatase 269 H (38-126) U/L Total Protein 4.2 L (5.8-8.3) g/dL Albumin 2.3 L (3.0-4.8) g/dL Globulin 1.9 gm/dL Albumin/Globulin Ratio 1.2 (1.1-1.8) Lipase (23-300) U/L Arterial Blood Potassium (3.6-5.2) mmol/L Blood Type Antibody Screen Crossmatch BBK History Checked 01/04/18 01/04/18 01/04/18 Range/Units 17:52 16:17 13:49 WBC (4.5-11.0) 10^3/ul RBC (3.5-6.1) 10^6/uL Hgb (12.0-16.0) g/dL Hct (36.0-48.0) % MCV (80.0-105.0) fl MCH (25.0-35.0) pg MCHC (31.0-37.0) g/dl RDW (11.5-14.5) % Plt Count (120.0-450.0) 10^3/uL Gran % (50.0-68.0) % Lymph % (Auto) (22.0-35.0) % Hunt % (Auto) (1.0-6.0) % Eos % (Auto) (1.5-5.0) % Baso % (Auto) (0.0-3.0) % Gran # (1.4-6.5) Lymph # (Auto) (1.2-3.4) Hunt # (Auto) (0.1-0.6) Eos # (Auto) (0.0-0.7) Baso # (Auto) (0.0-2.0) K/mm3 PT (9.4-12.5) SECONDS INR APTT (25.1-36.5) Seconds pCO2 44 (35-45) mm/Hg pO2 49.0 L (80-100) mm/Hg HCO3 10.6 L (21-28) mmol/L ABG pH 6.99 L* (7.35-7.45) ABG Total CO2 12.0 L (22-28) mmol.L ABG O2 Saturation 77.7 L (95-98) % ABG O2 Content (15-23) ML/dl ABG Base Excess -20.5 L (-2.0-3.0) mmol/L ABG Hemoglobin (11.7-17.4) g/dL ABG Carboxyhemoglobin (0.5-1.5) % POC ABG HHb (Measured) (0-5) % ABG Methemoglobin (0.0-3.0) % ABG O2 Capacity (16-24) mL/dl ABG Potassium 4.6 (3.6-5.2) mmol/L Hgb O2 Saturation (95.0-98.0) % Glucose 104 (65-105) mg/dl Lactate 6.7 H* (0.7-2.1) mmol/L Mechanical Rate 16 FiO2 100.0 % Tidal Volume 300 PEEP 10 Sodium 136.0 (132-148) mmol/L Potassium (3.6-5.0) mmol/L Chloride 109.0 H (98-107) mmol/L Carbon Dioxide (21-33) mmol/L Anion Gap (10-20) BUN (7-21) mg/dL Creatinine (0.7-1.2) mg/dl Est GFR ( Amer) Est GFR (Non-Af Amer) POC Glucose (mg/dL) 128 H 159 H (65-110) mg/dL Random Glucose (70-110) mg/dL Lactic Acid (0.7-2.1) mmol/L Calcium (8.4-10.5) mg/dL Phosphorus (2.5-4.5) mg/dL Magnesium (1.7-2.2) mg/dL Total Bilirubin (0.2-1.3) mg/dL AST (14-36) U/L ALT (7-56) U/L Alkaline Phosphatase (38-126) U/L Total Protein (5.8-8.3) g/dL Albumin (3.0-4.8) g/dL Globulin gm/dL Albumin/Globulin Ratio (1.1-1.8) Lipase (23-300) U/L Arterial Blood Potassium 4.6 (3.6-5.2) mmol/L Blood Type Antibody Screen Crossmatch BBK History Checked 01/04/18 01/04/18 01/04/18 Range/Units 11:49 11:00 11:00 WBC (4.5-11.0) 10^3/ul RBC (3.5-6.1) 10^6/uL Hgb (12.0-16.0) g/dL Hct (36.0-48.0) % MCV (80.0-105.0) fl MCH (25.0-35.0) pg MCHC (31.0-37.0) g/dl RDW (11.5-14.5) % Plt Count (120.0-450.0) 10^3/uL Gran % (50.0-68.0) % Lymph % (Auto) (22.0-35.0) % Hunt % (Auto) (1.0-6.0) % Eos % (Auto) (1.5-5.0) % Baso % (Auto) (0.0-3.0) % Gran # (1.4-6.5) Lymph # (Auto) (1.2-3.4) Hunt # (Auto) (0.1-0.6) Eos # (Auto) (0.0-0.7) Baso # (Auto) (0.0-2.0) K/mm3 PT (9.4-12.5) SECONDS INR APTT (25.1-36.5) Seconds pCO2 30 L (35-45) mm/Hg pO2 63.0 L (80-100) mm/Hg HCO3 19.0 L (21-28) mmol/L ABG pH 7.41 (7.35-7.45) ABG Total CO2 19.9 L (22-28) mmol.L ABG O2 Saturation 96.7 (95-98) % ABG O2 Content 7.2 L (15-23) ML/dl ABG Base Excess -5.2 L (-2.0-3.0) mmol/L ABG Hemoglobin 5.4 L (11.7-17.4) g/dL ABG Carboxyhemoglobin 2.0 H (0.5-1.5) % POC ABG HHb (Measured) 3.2 (0-5) % ABG Methemoglobin 1.0 (0.0-3.0) % ABG O2 Capacity 7.4 L (16-24) mL/dl ABG Potassium (3.6-5.2) mmol/L Hgb O2 Saturation 93.8 L (95.0-98.0) % Glucose (65-105) mg/dl Lactate (0.7-2.1) mmol/L Mechanical Rate FiO2 60.0 % Tidal Volume PEEP Sodium (132-148) mmol/L Potassium (3.6-5.0) mmol/L Chloride (98-107) mmol/L Carbon Dioxide (21-33) mmol/L Anion Gap (10-20) BUN (7-21) mg/dL Creatinine (0.7-1.2) mg/dl Est GFR ( Amer) Est GFR (Non-Af Amer) POC Glucose (mg/dL) 162 H (65-110) mg/dL Random Glucose (70-110) mg/dL Lactic Acid (0.7-2.1) mmol/L Calcium (8.4-10.5) mg/dL Phosphorus (2.5-4.5) mg/dL Magnesium (1.7-2.2) mg/dL Total Bilirubin (0.2-1.3) mg/dL AST (14-36) U/L ALT (7-56) U/L Alkaline Phosphatase (38-126) U/L Total Protein (5.8-8.3) g/dL Albumin (3.0-4.8) g/dL Globulin gm/dL Albumin/Globulin Ratio (1.1-1.8) Lipase (23-300) U/L Arterial Blood Potassium (3.6-5.2) mmol/L Blood Type A NEGATIVE Antibody Screen Negative Crossmatch See Detail BBK History Checked Patient has bt 01/04/18 01/04/18 01/04/18 Range/Units 10:01 09:00 09:00 WBC (4.5-11.0) 10^3/ul RBC (3.5-6.1) 10^6/uL Hgb (12.0-16.0) g/dL Hct (36.0-48.0) % MCV (80.0-105.0) fl MCH (25.0-35.0) pg MCHC (31.0-37.0) g/dl RDW (11.5-14.5) % Plt Count (120.0-450.0) 10^3/uL Gran % (50.0-68.0) % Lymph % (Auto) (22.0-35.0) % Hunt % (Auto) (1.0-6.0) % Eos % (Auto) (1.5-5.0) % Baso % (Auto) (0.0-3.0) % Gran # (1.4-6.5) Lymph # (Auto) (1.2-3.4) Hunt # (Auto) (0.1-0.6) Eos # (Auto) (0.0-0.7) Baso # (Auto) (0.0-2.0) K/mm3 PT 23.8 H (9.4-12.5) SECONDS INR 2.04 APTT 47.0 H (25.1-36.5) Seconds pCO2 (35-45) mm/Hg pO2 (80-100) mm/Hg HCO3 (21-28) mmol/L ABG pH (7.35-7.45) ABG Total CO2 (22-28) mmol.L ABG O2 Saturation (95-98) % ABG O2 Content (15-23) ML/dl ABG Base Excess (-2.0-3.0) mmol/L ABG Hemoglobin (11.7-17.4) g/dL ABG Carboxyhemoglobin (0.5-1.5) % POC ABG HHb (Measured) (0-5) % ABG Methemoglobin (0.0-3.0) % ABG O2 Capacity (16-24) mL/dl ABG Potassium (3.6-5.2) mmol/L Hgb O2 Saturation (95.0-98.0) % Glucose (65-105) mg/dl Lactate (0.7-2.1) mmol/L Mechanical Rate FiO2 % Tidal Volume PEEP Sodium (132-148) mmol/L Potassium (3.6-5.0) mmol/L Chloride (98-107) mmol/L Carbon Dioxide (21-33) mmol/L Anion Gap (10-20) BUN (7-21) mg/dL Creatinine (0.7-1.2) mg/dl Est GFR ( Amer) Est GFR (Non-Af Amer) POC Glucose (mg/dL) 158 H (65-110) mg/dL Random Glucose (70-110) mg/dL Lactic Acid (0.7-2.1) mmol/L Calcium (8.4-10.5) mg/dL Phosphorus (2.5-4.5) mg/dL Magnesium (1.7-2.2) mg/dL Total Bilirubin (0.2-1.3) mg/dL AST (14-36) U/L ALT (7-56) U/L Alkaline Phosphatase (38-126) U/L Total Protein (5.8-8.3) g/dL Albumin (3.0-4.8) g/dL Globulin gm/dL Albumin/Globulin Ratio (1.1-1.8) Lipase 194 (23-300) U/L Arterial Blood Potassium (3.6-5.2) mmol/L Blood Type Antibody Screen Crossmatch BBK History Checked 01/04/18 01/04/18 01/04/18 Range/Units 09:00 09:00 07:55 WBC 14.8 H (4.5-11.0) 10^3/ul RBC 2.27 L (3.5-6.1) 10^6/uL Hgb 6.4 L* (12.0-16.0) g/dL Hct 18.3 L* (36.0-48.0) % MCV 80.6 (80.0-105.0) fl MCH 28.2 (25.0-35.0) pg MCHC 35.0 (31.0-37.0) g/dl RDW 17.4 H (11.5-14.5) % Plt Count 35 L* (120.0-450.0) 10^3/uL Gran % 93.0 H (50.0-68.0) % Lymph % (Auto) 6.6 L (22.0-35.0) % Hunt % (Auto) 0.4 L (1.0-6.0) % Eos % (Auto) 0.0 L (1.5-5.0) % Baso % (Auto) 0.0 (0.0-3.0) % Gran # 13.72 H (1.4-6.5) Lymph # (Auto) 1.0 L (1.2-3.4) Hunt # (Auto) 0.1 (0.1-0.6) Eos # (Auto) 0.0 (0.0-0.7) Baso # (Auto) 0.00 (0.0-2.0) K/mm3 PT (9.4-12.5) SECONDS INR APTT (25.1-36.5) Seconds pCO2 (35-45) mm/Hg pO2 (80-100) mm/Hg HCO3 (21-28) mmol/L ABG pH (7.35-7.45) ABG Total CO2 (22-28) mmol.L ABG O2 Saturation (95-98) % ABG O2 Content (15-23) ML/dl ABG Base Excess (-2.0-3.0) mmol/L ABG Hemoglobin (11.7-17.4) g/dL ABG Carboxyhemoglobin (0.5-1.5) % POC ABG HHb (Measured) (0-5) % ABG Methemoglobin (0.0-3.0) % ABG O2 Capacity (16-24) mL/dl ABG Potassium (3.6-5.2) mmol/L Hgb O2 Saturation (95.0-98.0) % Glucose (65-105) mg/dl Lactate (0.7-2.1) mmol/L Mechanical Rate FiO2 % Tidal Volume PEEP Sodium 142 (132-148) mmol/L Potassium 4.8 (3.6-5.0) mmol/L Chloride 106 (98-107) mmol/L Carbon Dioxide 19 L (21-33) mmol/L Anion Gap 21 H (10-20) BUN 26 H (7-21) mg/dL Creatinine 1.2 (0.7-1.2) mg/dl Est GFR ( Amer) 59 Est GFR (Non-Af Amer) 49 POC Glucose (mg/dL) 182 H (65-110) mg/dL Random Glucose 132 H (70-110) mg/dL Lactic Acid (0.7-2.1) mmol/L Calcium 7.1 L (8.4-10.5) mg/dL Phosphorus 3.3 (2.5-4.5) mg/dL Magnesium 1.8 (1.7-2.2) mg/dL Total Bilirubin 3.0 H (0.2-1.3) mg/dL AST 98 H (14-36) U/L ALT 180 H (7-56) U/L Alkaline Phosphatase 287 H D (38-126) U/L Total Protein 4.6 L (5.8-8.3) g/dL Albumin 2.6 L (3.0-4.8) g/dL Globulin 2.0 gm/dL Albumin/Globulin Ratio 1.3 (1.1-1.8) Lipase (23-300) U/L Arterial Blood Potassium (3.6-5.2) mmol/L Blood Type Antibody Screen Crossmatch BBK History Checked 01/04/18 01/04/18 01/04/18 Range/Units 05:58 05:07 04:28 WBC (4.5-11.0) 10^3/ul RBC (3.5-6.1) 10^6/uL Hgb (12.0-16.0) g/dL Hct (36.0-48.0) % MCV (80.0-105.0) fl MCH (25.0-35.0) pg MCHC (31.0-37.0) g/dl RDW (11.5-14.5) % Plt Count (120.0-450.0) 10^3/uL Gran % (50.0-68.0) % Lymph % (Auto) (22.0-35.0) % Hunt % (Auto) (1.0-6.0) % Eos % (Auto) (1.5-5.0) % Baso % (Auto) (0.0-3.0) % Gran # (1.4-6.5) Lymph # (Auto) (1.2-3.4) Hunt # (Auto) (0.1-0.6) Eos # (Auto) (0.0-0.7) Baso # (Auto) (0.0-2.0) K/mm3 PT (9.4-12.5) SECONDS INR APTT (25.1-36.5) Seconds pCO2 (35-45) mm/Hg pO2 (80-100) mm/Hg HCO3 (21-28) mmol/L ABG pH (7.35-7.45) ABG Total CO2 (22-28) mmol.L ABG O2 Saturation (95-98) % ABG O2 Content (15-23) ML/dl ABG Base Excess (-2.0-3.0) mmol/L ABG Hemoglobin (11.7-17.4) g/dL ABG Carboxyhemoglobin (0.5-1.5) % POC ABG HHb (Measured) (0-5) % ABG Methemoglobin (0.0-3.0) % ABG O2 Capacity (16-24) mL/dl ABG Potassium (3.6-5.2) mmol/L Hgb O2 Saturation (95.0-98.0) % Glucose (65-105) mg/dl Lactate (0.7-2.1) mmol/L Mechanical Rate FiO2 % Tidal Volume PEEP Sodium (132-148) mmol/L Potassium (3.6-5.0) mmol/L Chloride (98-107) mmol/L Carbon Dioxide (21-33) mmol/L Anion Gap (10-20) BUN (7-21) mg/dL Creatinine (0.7-1.2) mg/dl Est GFR ( Amer) Est GFR (Non-Af Amer) POC Glucose (mg/dL) 208 H 184 H 60 L (65-110) mg/dL Random Glucose (70-110) mg/dL Lactic Acid (0.7-2.1) mmol/L Calcium (8.4-10.5) mg/dL Phosphorus (2.5-4.5) mg/dL Magnesium (1.7-2.2) mg/dL Total Bilirubin (0.2-1.3) mg/dL AST (14-36) U/L ALT (7-56) U/L Alkaline Phosphatase (38-126) U/L Total Protein (5.8-8.3) g/dL Albumin (3.0-4.8) g/dL Globulin gm/dL Albumin/Globulin Ratio (1.1-1.8) Lipase (23-300) U/L Arterial Blood Potassium (3.6-5.2) mmol/L Blood Type Antibody Screen Crossmatch BBK History Checked 01/04/18 01/04/18 01/03/18 Range/Units 00:30 00:09 21:45 WBC (4.5-11.0) 10^3/ul RBC (3.5-6.1) 10^6/uL Hgb (12.0-16.0) g/dL Hct (36.0-48.0) % MCV (80.0-105.0) fl MCH (25.0-35.0) pg MCHC (31.0-37.0) g/dl RDW (11.5-14.5) % Plt Count (120.0-450.0) 10^3/uL Gran % (50.0-68.0) % Lymph % (Auto) (22.0-35.0) % Hunt % (Auto) (1.0-6.0) % Eos % (Auto) (1.5-5.0) % Baso % (Auto) (0.0-3.0) % Gran # (1.4-6.5) Lymph # (Auto) (1.2-3.4) Hunt # (Auto) (0.1-0.6) Eos # (Auto) (0.0-0.7) Baso # (Auto) (0.0-2.0) K/mm3 PT (9.4-12.5) SECONDS INR APTT (25.1-36.5) Seconds pCO2 (35-45) mm/Hg pO2 (80-100) mm/Hg HCO3 (21-28) mmol/L ABG pH (7.35-7.45) ABG Total CO2 (22-28) mmol.L ABG O2 Saturation (95-98) % ABG O2 Content (15-23) ML/dl ABG Base Excess (-2.0-3.0) mmol/L ABG Hemoglobin (11.7-17.4) g/dL ABG Carboxyhemoglobin (0.5-1.5) % POC ABG HHb (Measured) (0-5) % ABG Methemoglobin (0.0-3.0) % ABG O2 Capacity (16-24) mL/dl ABG Potassium (3.6-5.2) mmol/L Hgb O2 Saturation (95.0-98.0) % Glucose (65-105) mg/dl Lactate (0.7-2.1) mmol/L Mechanical Rate FiO2 % Tidal Volume PEEP Sodium 144 (132-148) mmol/L Potassium 5.1 H (3.6-5.0) mmol/L Chloride 110 H (98-107) mmol/L Carbon Dioxide 20 L (21-33) mmol/L Anion Gap 19 (10-20) BUN 25 H (7-21) mg/dL Creatinine 1.0 (0.7-1.2) mg/dl Est GFR ( Amer) > 60 Est GFR (Non-Af Amer) > 60 POC Glucose (mg/dL) 111 H 112 H (65-110) mg/dL Random Glucose 96 (70-110) mg/dL Lactic Acid (0.7-2.1) mmol/L Calcium 7.6 L (8.4-10.5) mg/dL Phosphorus (2.5-4.5) mg/dL Magnesium (1.7-2.2) mg/dL Total Bilirubin (0.2-1.3) mg/dL AST (14-36) U/L ALT (7-56) U/L Alkaline Phosphatase (38-126) U/L Total Protein (5.8-8.3) g/dL Albumin (3.0-4.8) g/dL Globulin gm/dL Albumin/Globulin Ratio (1.1-1.8) Lipase (23-300) U/L Arterial Blood Potassium (3.6-5.2) mmol/L Blood Type Antibody Screen Crossmatch BBK History Checked 01/03/18 12/26/17 Range/Units 20:01 03:00 WBC (4.5-11.0) 10^3/ul RBC (3.5-6.1) 10^6/uL Hgb (12.0-16.0) g/dL Hct (36.0-48.0) % MCV (80.0-105.0) fl MCH (25.0-35.0) pg MCHC (31.0-37.0) g/dl RDW (11.5-14.5) % Plt Count (120.0-450.0) 10^3/uL Gran % (50.0-68.0) % Lymph % (Auto) (22.0-35.0) % Hunt % (Auto) (1.0-6.0) % Eos % (Auto) (1.5-5.0) % Baso % (Auto) (0.0-3.0) % Gran # (1.4-6.5) Lymph # (Auto) (1.2-3.4) Hunt # (Auto) (0.1-0.6) Eos # (Auto) (0.0-0.7) Baso # (Auto) (0.0-2.0) K/mm3 PT (9.4-12.5) SECONDS INR APTT (25.1-36.5) Seconds pCO2 (35-45) mm/Hg pO2 (80-100) mm/Hg HCO3 (21-28) mmol/L ABG pH (7.35-7.45) ABG Total CO2 (22-28) mmol.L ABG O2 Saturation (95-98) % ABG O2 Content (15-23) ML/dl ABG Base Excess (-2.0-3.0) mmol/L ABG Hemoglobin (11.7-17.4) g/dL ABG Carboxyhemoglobin (0.5-1.5) % POC ABG HHb (Measured) (0-5) % ABG Methemoglobin (0.0-3.0) % ABG O2 Capacity (16-24) mL/dl ABG Potassium (3.6-5.2) mmol/L Hgb O2 Saturation (95.0-98.0) % Glucose (65-105) mg/dl Lactate (0.7-2.1) mmol/L Mechanical Rate FiO2 % Tidal Volume PEEP Sodium (132-148) mmol/L Potassium (3.6-5.0) mmol/L Chloride (98-107) mmol/L Carbon Dioxide (21-33) mmol/L Anion Gap (10-20) BUN (7-21) mg/dL Creatinine (0.7-1.2) mg/dl Est GFR ( Amer) Est GFR (Non-Af Amer) POC Glucose (mg/dL) 165 H (65-110) mg/dL Random Glucose (70-110) mg/dL Lactic Acid (0.7-2.1) mmol/L Calcium (8.4-10.5) mg/dL Phosphorus (2.5-4.5) mg/dL Magnesium (1.7-2.2) mg/dL Total Bilirubin (0.2-1.3) mg/dL AST (14-36) U/L ALT (7-56) U/L Alkaline Phosphatase (38-126) U/L Total Protein (5.8-8.3) g/dL Albumin (3.0-4.8) g/dL Globulin gm/dL Albumin/Globulin Ratio (1.1-1.8) Lipase (23-300) U/L Arterial Blood Potassium (3.6-5.2) mmol/L Blood Type Antibody Screen Crossmatch See Detail BBK History Checked Laboratory Results - last 24 hr 12/26/17 01/03/18 01/03/18 03:00 20:01 21:45 WBC RBC Hgb Hct MCV MCH MCHC RDW Plt Count Gran % Lymph % (Auto) Hunt % (Auto) Eos % (Auto) Baso % (Auto) Gran # Lymph # (Auto) Hunt # (Auto) Eos # (Auto) Baso # (Auto) PT INR APTT pCO2 pO2 HCO3 ABG pH ABG Total CO2 ABG O2 Saturation ABG O2 Content ABG Base Excess ABG Hemoglobin ABG Carboxyhemoglobin POC ABG HHb (Measured) ABG Methemoglobin ABG O2 Capacity ABG Potassium Hgb O2 Saturation Glucose Lactate Mechanical Rate FiO2 Tidal Volume PEEP Sodium Potassium Chloride Carbon Dioxide Anion Gap BUN Creatinine Est GFR ( Amer) Est GFR (Non-Af Amer) POC Glucose (mg/dL) 165 H 112 H Random Glucose Lactic Acid Calcium Phosphorus Magnesium Total Bilirubin AST ALT Alkaline Phosphatase Total Protein Albumin Globulin Albumin/Globulin Ratio Lipase Arterial Blood Potassium Blood Type Antibody Screen Crossmatch See Detail BBK History Checked 01/04/18 01/04/18 01/04/18 00:09 00:30 04:28 WBC RBC Hgb Hct MCV MCH MCHC RDW Plt Count Gran % Lymph % (Auto) Hunt % (Auto) Eos % (Auto) Baso % (Auto) Gran # Lymph # (Auto) Hunt # (Auto) Eos # (Auto) Baso # (Auto) PT INR APTT pCO2 pO2 HCO3 ABG pH ABG Total CO2 ABG O2 Saturation ABG O2 Content ABG Base Excess ABG Hemoglobin ABG Carboxyhemoglobin POC ABG HHb (Measured) ABG Methemoglobin ABG O2 Capacity ABG Potassium Hgb O2 Saturation Glucose Lactate Mechanical Rate FiO2 Tidal Volume PEEP Sodium 144 Potassium 5.1 H Chloride 110 H Carbon Dioxide 20 L Anion Gap 19 BUN 25 H Creatinine 1.0 Est GFR ( Amer) > 60 Est GFR (Non-Af Amer) > 60 POC Glucose (mg/dL) 111 H 60 L Random Glucose 96 Lactic Acid Calcium 7.6 L Phosphorus Magnesium Total Bilirubin AST ALT Alkaline Phosphatase Total Protein Albumin Globulin Albumin/Globulin Ratio Lipase Arterial Blood Potassium Blood Type Antibody Screen Crossmatch BBK History Checked 01/04/18 01/04/18 01/04/18 05:07 05:58 07:55 WBC RBC Hgb Hct MCV MCH MCHC RDW Plt Count Gran % Lymph % (Auto) Hunt % (Auto) Eos % (Auto) Baso % (Auto) Gran # Lymph # (Auto) Hunt # (Auto) Eos # (Auto) Baso # (Auto) PT INR APTT pCO2 pO2 HCO3 ABG pH ABG Total CO2 ABG O2 Saturation ABG O2 Content ABG Base Excess ABG Hemoglobin ABG Carboxyhemoglobin POC ABG HHb (Measured) ABG Methemoglobin ABG O2 Capacity ABG Potassium Hgb O2 Saturation Glucose Lactate Mechanical Rate FiO2 Tidal Volume PEEP Sodium Potassium Chloride Carbon Dioxide Anion Gap BUN Creatinine Est GFR ( Amer) Est GFR (Non-Af Amer) POC Glucose (mg/dL) 184 H 208 H 182 H Random Glucose Lactic Acid Calcium Phosphorus Magnesium Total Bilirubin AST ALT Alkaline Phosphatase Total Protein Albumin Globulin Albumin/Globulin Ratio Lipase Arterial Blood Potassium Blood Type Antibody Screen Crossmatch BBK History Checked 01/04/18 01/04/18 01/04/18 09:00 09:00 09:00 WBC 14.8 H RBC 2.27 L Hgb 6.4 L* Hct 18.3 L* MCV 80.6 MCH 28.2 MCHC 35.0 RDW 17.4 H Plt Count 35 L* Gran % 93.0 H Lymph % (Auto) 6.6 L Hunt % (Auto) 0.4 L Eos % (Auto) 0.0 L Baso % (Auto) 0.0 Gran # 13.72 H Lymph # (Auto) 1.0 L Hunt # (Auto) 0.1 Eos # (Auto) 0.0 Baso # (Auto) 0.00 PT 23.8 H INR 2.04 APTT 47.0 H pCO2 pO2 HCO3 ABG pH ABG Total CO2 ABG O2 Saturation ABG O2 Content ABG Base Excess ABG Hemoglobin ABG Carboxyhemoglobin POC ABG HHb (Measured) ABG Methemoglobin ABG O2 Capacity ABG Potassium Hgb O2 Saturation Glucose Lactate Mechanical Rate FiO2 Tidal Volume PEEP Sodium 142 Potassium 4.8 Chloride 106 Carbon Dioxide 19 L Anion Gap 21 H BUN 26 H Creatinine 1.2 Est GFR ( Amer) 59 Est GFR (Non-Af Amer) 49 POC Glucose (mg/dL) Random Glucose 132 H Lactic Acid Calcium 7.1 L Phosphorus 3.3 Magnesium 1.8 Total Bilirubin 3.0 H AST 98 H ALT 180 H Alkaline Phosphatase 287 H D Total Protein 4.6 L Albumin 2.6 L Globulin 2.0 Albumin/Globulin Ratio 1.3 Lipase Arterial Blood Potassium Blood Type Antibody Screen Crossmatch BBK History Checked 01/04/18 01/04/18 01/04/18 09:00 10:01 11:00 WBC RBC Hgb Hct MCV MCH MCHC RDW Plt Count Gran % Lymph % (Auto) Hunt % (Auto) Eos % (Auto) Baso % (Auto) Gran # Lymph # (Auto) Hunt # (Auto) Eos # (Auto) Baso # (Auto) PT INR APTT pCO2 30 L pO2 63.0 L HCO3 19.0 L ABG pH 7.41 ABG Total CO2 19.9 L ABG O2 Saturation 96.7 ABG O2 Content 7.2 L ABG Base Excess -5.2 L ABG Hemoglobin 5.4 L ABG Carboxyhemoglobin 2.0 H POC ABG HHb (Measured) 3.2 ABG Methemoglobin 1.0 ABG O2 Capacity 7.4 L ABG Potassium Hgb O2 Saturation 93.8 L Glucose Lactate Mechanical Rate FiO2 60.0 Tidal Volume PEEP Sodium Potassium Chloride Carbon Dioxide Anion Gap BUN Creatinine Est GFR ( Amer) Est GFR (Non-Af Amer) POC Glucose (mg/dL) 158 H Random Glucose Lactic Acid Calcium Phosphorus Magnesium Total Bilirubin AST ALT Alkaline Phosphatase Total Protein Albumin Globulin Albumin/Globulin Ratio Lipase 194 Arterial Blood Potassium Blood Type Antibody Screen Crossmatch BBK History Checked 01/04/18 01/04/18 01/04/18 11:00 11:49 13:49 WBC RBC Hgb Hct MCV MCH MCHC RDW Plt Count Gran % Lymph % (Auto) Hunt % (Auto) Eos % (Auto) Baso % (Auto) Gran # Lymph # (Auto) Hunt # (Auto) Eos # (Auto) Baso # (Auto) PT INR APTT pCO2 pO2 HCO3 ABG pH ABG Total CO2 ABG O2 Saturation ABG O2 Content ABG Base Excess ABG Hemoglobin ABG Carboxyhemoglobin POC ABG HHb (Measured) ABG Methemoglobin ABG O2 Capacity ABG Potassium Hgb O2 Saturation Glucose Lactate Mechanical Rate FiO2 Tidal Volume PEEP Sodium Potassium Chloride Carbon Dioxide Anion Gap BUN Creatinine Est GFR ( Amer) Est GFR (Non-Af Amer) POC Glucose (mg/dL) 162 H 159 H Random Glucose Lactic Acid Calcium Phosphorus Magnesium Total Bilirubin AST ALT Alkaline Phosphatase Total Protein Albumin Globulin Albumin/Globulin Ratio Lipase Arterial Blood Potassium Blood Type A NEGATIVE Antibody Screen Negative Crossmatch See Detail BBK History Checked Patient has bt 01/04/18 01/04/18 01/04/18 16:17 17:52 18:59 WBC RBC Hgb Hct MCV MCH MCHC RDW Plt Count Gran % Lymph % (Auto) Hunt % (Auto) Eos % (Auto) Baso % (Auto) Gran # Lymph # (Auto) Hunt # (Auto) Eos # (Auto) Baso # (Auto) PT INR APTT pCO2 44 pO2 49.0 L HCO3 10.6 L ABG pH 6.99 L* ABG Total CO2 12.0 L ABG O2 Saturation 77.7 L ABG O2 Content ABG Base Excess -20.5 L ABG Hemoglobin ABG Carboxyhemoglobin POC ABG HHb (Measured) ABG Methemoglobin ABG O2 Capacity ABG Potassium 4.6 Hgb O2 Saturation Glucose 104 Lactate 6.7 H* Mechanical Rate 16 FiO2 100.0 Tidal Volume 300 PEEP 10 Sodium 136.0 Potassium Chloride 109.0 H Carbon Dioxide Anion Gap BUN Creatinine Est GFR ( Amer) Est GFR (Non-Af Amer) POC Glucose (mg/dL) 128 H Random Glucose Lactic Acid 5.5 H* Calcium Phosphorus Magnesium Total Bilirubin AST ALT Alkaline Phosphatase Total Protein Albumin Globulin Albumin/Globulin Ratio Lipase Arterial Blood Potassium 4.6 Blood Type Antibody Screen Crossmatch BBK History Checked 01/04/18 01/04/18 18:59 18:59 WBC 10.4 D RBC 2.58 L Hgb 7.4 L Hct 21.4 L MCV 82.9 MCH 28.7 MCHC 34.6 RDW 16.6 H Plt Count 28 L* Gran % Lymph % (Auto) Hunt % (Auto) Eos % (Auto) Baso % (Auto) Gran # Lymph # (Auto) Hunt # (Auto) Eos # (Auto) Baso # (Auto) PT INR APTT pCO2 pO2 HCO3 ABG pH ABG Total CO2 ABG O2 Saturation ABG O2 Content ABG Base Excess ABG Hemoglobin ABG Carboxyhemoglobin POC ABG HHb (Measured) ABG Methemoglobin ABG O2 Capacity ABG Potassium Hgb O2 Saturation Glucose Lactate Mechanical Rate FiO2 Tidal Volume PEEP Sodium 140 Potassium 4.0 Chloride 105 Carbon Dioxide 16 L Anion Gap 23 H BUN 27 H Creatinine 1.3 H Est GFR ( Amer) 54 Est GFR (Non-Af Amer) 44 POC Glucose (mg/dL) Random Glucose 118 H Lactic Acid Calcium 6.6 L* Phosphorus Magnesium Total Bilirubin 4.0 H AST 182 H D ALT 196 H Alkaline Phosphatase 269 H Total Protein 4.2 L Albumin 2.3 L Globulin 1.9 Albumin/Globulin Ratio 1.2 Lipase Arterial Blood Potassium Blood Type Antibody Screen Crossmatch BBK History Checked Addendum Addendum: 01/04/18 19:37 ICU Attending Addendum: Patient seen and examined. Case reviewed on round with housestaff. Agree with resident note above with the following additions/exceptions: 42 with mental retardation admitted with a seizure like episode, hypothermia and hypoglycemia, bradycardia likely secondary to shock. Shock resolved and she was much improved until 12/31 when she went into resp distress/ARDS requiring intubation. Pulm: Etiology of her ARDS is unclear. Infectious is likely suspect however cultures neg thus far. Will check pancr enzymes. Empirically covered for HCAP with vanc/ zosyn. Will cont ARDS NET ventilation with low VT. Fi02 now at 60% with PEEP 5 Hem: She also became more thrombocypenic and anemia today. No signs of blood loss. Iron studies show Iron 55 and Ferritin 182 which are not suggestive of iron def anemia. Hemolysis panel and DIC w/u neg thus far. Reviewing her platlets and bilirubin - both were normal on admission. Plat dropped and Bili went up on 12/27-12/28. They both improved however got worse again as of 01/02-01/03. When tracking her meds, the only medication changes that have the same patter is vancomycin. Both time vanc was started 12/27 and 01/02 her plat dropped and bili went up. When it was stopped previously, her numbers improved. 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 It is a known side effect although it is rare based on limited case reports. At this point, will d/w ID in regards to stopped vanc and if MRSA coverage still required switch to an alt abx. Still not clear if HB drop is related but Will repeat CBC after transfusion (1unit PRBC). ID: [id number] empiric coverage, cultures neg thus far. Will discuss de-escalating abx. Concern for WBC jump so would prefer to cont abx while also awaiting C Diff Neuro - sedation vacation from fentanyl; pupil were unequal as right > left. Will check head ct. -cont keppra GI: ok to feed, monitor stool output, guard for refeeding syndrome LFTs cont to trend down cont albumin SCD for DVT ppx PPI for GI ppx - will change to pepcid given low plat Summary: -Transfuse 1 unit and f/u CBC -d/w ID regarding stopping vanc (possible vancomycin-induced immune thrombocytopenia) -f.u head ct -repeat bili, chem, lfts, -f/u C Diff -change protonix to Pepcid Rest of care as noted above. Quinton Ruffin MD Mileage Clerk Critical care time : 39 mins
[2018-01-04] MEDS: Insulin Reg-LOW-Coverage SC SCH ×4 (08:30→22:00)
[2018-01-04 09:28] LABS: INR 2.04; PROTHROMBIN TIME 23.8 SECONDS (9.4-12.5)
[2018-01-04 09:30] LABS: GRAN # 13.72 (1.4-6.5); LYMPH % 6.6 % (22.0-35.0); MEAN CELL VOLUME 80.6 fl (80.0-105.0); MEAN CORPUSCULAR HEMOGLOBIN 28.2 pg (25.0-35.0); MONO # 0.1 (0.1-0.6); MONO % 0.4 % (1.0-6.0); RBC 2.27 10^6/uL (3.5-6.1); RED CELL DISTRIBUTION WIDTH 17.4 % (11.5-14.5); WHITE BLOOD COUNT 14.8 10^3/ul (4.5-11.0)
[2018-01-04 09:31] LABS: HEMOGLOBIN 6.4 g/dL (12.0-16.0)
[2018-01-04 09:32] LABS: PLATELET COUNT 35 10^3/uL (120.0-450.0)
[2018-01-04] MEDS: levETIRAcetam 500mg IVPB 500 MG/100 ML BAG IV SCH ×2 (09:52→22:01)
[2018-01-04] MEDS: Bacitracin Ointment 30 GM TUBE TOP SCH ×3 (09:53→18:56)
[2018-01-04 09:56] LABS: ALB/GLOB RATIO 1.3 (1.1-1.8); ALBUMIN 2.6 g/dL (3.0-4.8); CALCIUM 7.1 mg/dL (8.4-10.5)
[2018-01-04 11:42] LABS: ARTERIAL BLOOD GAS HEMOGLOBIN 5.4 g/dL (11.7-17.4); ARTERIAL BLOOD GAS O2 CAPACITY 7.4 mL/dl (16-24); ARTERIAL BLOOD GAS O2 CONTENT 7.2 ML/dl (15-23); ARTERIAL BLOOD GAS O2 SAT 96.7 % (95-98); ARTERIAL BLOOD GAS PCO2 30 mm/Hg (35-45); ARTERIAL BLOOD GAS PH 7.41 (7.35-7.45); ARTERIAL BLOOD GAS TCO2 19.9 mmol.L (22-28)
--- NOTE | 2018-01-04 11:48 | PN ---
Copied To: Abdiaziz Sousa MD Attending MD: Abidaziz Sousa MD DATE: 01/04/2018 SUBJECTIVE: The patient is in bed, intubated, on a ventilator. He appears overall in poor condition. PHYSICAL EXAMINATION: VITAL SIGNS: On exam, temperature is 95, blood pressure is 117/80, respiratory rate of 18 on the vent, heart rate of 80. HEENT: Examination of HEENT reveals ET to be in place. NECK: Supple. LUNGS: Have decreased breath sounds. HEART: Normal S1, S2. ABDOMEN: Soft. LABORATORY DATA: Laboratory examination reveals a white count of 15,000, hemoglobin of 7. Platelets of 45,000. Chemistries reveals a BUN of 25, creatinine of 1. Urinalysis is noted. Toxicology is noted and microbiology reveals the cultures are negative. ASSESSMENT AND PLAN: A 42-year-old female, chronically ill, debilitated, cachectic, wasting syndrome with a body mass index of only 11 who is mentally challenged and developmentally delayed, admitted initially with severe sepsis with gram-negative nichole bacteremia, most likely GI origin and biliary source with elevation of bilirubin, alkaline phosphatase out of proportion, AST and ALT and now has respiratory failure, intubated on a ventilator with elevated procalcitonin, intubated and with healthcare-associated pneumonia, on vancomycin and Zosyn with repeat cultures negative, day #3 of antibiotics. Overall, prognosis is quite poor for this patient who remains intubated on a ventilator. Case discussed with Dr. Welch earlier today. Abdiaziz Sousa MD
--- NOTE | 2018-01-04 12:28 | RAD ---
HISTORY: intubated COMPARISON: Chest x-ray performed 01/03/18 TECHNIQUE: Chest, one view. FINDINGS: Examination limited by patient obliquity. Endotracheal tube terminates approximately 8 mm above the rm.Nasogastric tube. Question presence of left upper quadrant drainage catheter. Numerous external wires and leads are evident. LUNGS: Moderate interstitial prominence may reflect infection or edema. PLEURA: No significant pleural effusion identified. No definite pneumothorax . CARDIOVASCULAR: Mild cardiomegaly. OSSEOUS STRUCTURES: Low left lateral 8th and right lateral 9th rib fracture deformities re-identified. VISUALIZED UPPER ABDOMEN: Unremarkable. OTHER FINDINGS: None. IMPRESSION: Examination limited by patient obliquity. Endotracheal tube terminates approximately 8 mm above the rm. Suggest repeat chest x-ray with patient in improved alignment in order to more accurately assess location of the endotracheal tube. Nasogastric tube. Question presence of left upper quadrant drainage catheter. Numerous external wires and leads are evident. Moderate interstitial prominence may reflect infection or edema.
[2018-01-04] MEDS ORDERED: NOREPINEPHRINE BIT/0.9 % NACL 4 MG/250 ML BAG IV PRN (15:47)
[2018-01-04] MEDS ORDERED: Naloxone 0.4 mg/ml Inj (Adult) ONE ×2 (16:01→16:16)
[2018-01-04] MEDS ORDERED: Vasopressin 20 Units/ml Inj SC ONE (16:03)
[2018-01-04 16:20] LABS: ARTERIAL BLOOD GAS HCO3 10.6 mmol/L (21-28); ARTERIAL BLOOD GAS O2 SAT 77.7 % (95-98); ARTERIAL BLOOD GAS PCO2 44 mm/Hg (35-45)
[2018-01-04 16:21] LABS: ARTERIAL BLOOD GAS PH 6.99 (7.35-7.45)
[2018-01-04] MEDS ORDERED: Sodium Bicarbonate (8.4%) 50 Meq Syringe IVP ONE (16:25)
[2018-01-04] MEDS: Vasopressin 20 UNITS in Dextrose 5% In Water 100 ML IV SCH (17:01)
--- NOTE | 2018-01-04 18:16 | PN ---
Copied To: Bk Newton MD Attending MD: Bk Newton MD DATE: 01/04/2018 FOLLOWUP SUBJECTIVE: Patient is continuing the ventilator. No reporting of severe tachycardia. PHYSICAL EXAMINATION: VITAL SIGNS: Blood pressure 117/80, heart rate 68, and temperature 95.7. GENERAL: Patient is hypothermic and is on warming blanket. HEENT: Pale conjunctivae. CHEST: Diffused bilateral coarse crepitations. HEART: S1 and S2, regular and distant. EXTREMITIES: No edema. LABORATORY DATA: Hemoglobin and hematocrit 6.4 and 18.3, white count 14.8, and platelet count 35,000. Today's SMA-7: Sodium 142, potassium 4.8, chloride 106, CO2 of 19. Glucose 132. BUN 26, creatinine 1.2. Chest x-ray revealed bilateral diffuse alveolar infiltrate. ASSESSMENT: 1. Gram-negative sepsis. 2. Bilateral pneumonia. 3. History of sinus bradycardia on admission. 4. Hypotension. RECOMMENDATIONS: Continue IV vancomycin and IV Zosyn. Continue IV Keppra. Continue albumin infusion at 12.5 g intravenously every 4 hours. Her prognosis is in my opinion. Bk Newton MD
--- NOTE | 2018-01-04 18:29 | CP.PCM.PN ---
<Donato Basilio - Last Filed: 01/04/18 18:26> Subjective - Date & Time of Evaluation Date of Evaluation: 01/04/18 Time of Evaluation: 07:45 - Subjective Subjective: Donato Basilio DO PGY-1, [employer] Medicine Progress Note Pt seen and examined at bedside this am. Mildly arousable, intubated, pt weaned off Fentanyl yesterday as per RN at bedside. No acute events reported overnight. Unable to obtain 12-point ROS due to pt's current mental status. Objective - Vital Signs/Intake and Output Vital Signs (last 24 hours): Temp Pulse Resp BP Pulse Ox 96.7 F L 55 L 38 H 70/35 L 96 01/04/18 17:11 01/04/18 17:11 01/04/18 17:11 01/04/18 17:11 01/04/18 08:00 Intake and Output: 01/04/18 01/04/18 06:59 18:59 Intake Total 1720 445 Output Total 100 Balance 1620 445 - Medications Medications: Current Medications Albumin Human (Albumin Human 25% (12.5 Gm/50 Ml)) 12.5 gm IV Q4 [facility] Last Admin: 01/04/18 14:08 Dose: 12.5 gm Bacitracin (Bacitracin) 1 gm TOP TID [facility] Last Admin: 01/04/18 14:08 Dose: 1 gm Dextrose (Dextrose 50% Inj) 25 ml IVP ONCE PRN PRN Reason: Hypoglycemia Last Admin: 01/04/18 04:31 Dose: 25 ml Levetiracetam (Keppra 500mg Ivpb) 500 mg in 100 mls @ 460 mls/hr IV Q12 [facility] Last Admin: 01/04/18 09:52 Dose: 460 mls/hr Piperacillin Sod/Tazobactam Sod (Zosyn 3.375 In Ns 100ml) 100 mls @ 200 mls/hr IVPB Q6 [facility] PRN Reason: Protocol Stop: 01/08/18 19:56 Last Admin: 01/04/18 13:58 Dose: 200 mls/hr Norepinephrine Bitartrate 8 mg (/ Sodium Chloride) 508 mls @ 15.24 mls/hr IV .Q24H PRN; Protocol; 4 MCG/MIN PRN Reason: TITRATE PER MD ORDER Vancomycin HCl (Vancomycin 1gm) 1 gm in 250 mls @ 167 mls/hr IVPB Q12H [facility] PRN Reason: Protocol Stop: 01/11/18 16:31 Last Admin: 01/04/18 05:07 Dose: 167 mls/hr Dextrose (Dextrose 5% In Water 1000 Ml) 1,000 mls @ 100 mls/hr IV .Q10H [facility] Last Admin: 01/04/18 05:01 Dose: 100 mls/hr Fentanyl Citrate (Fentanyl Citrate/Sodium Chloride 1 Mg/100 Ml) 1,000 mcg in 100 mls @ 2 mls/hr IV .Q24H PRN; Protocol; 20 MCG/HR PRN Reason: TITRATE PER MD ORDER Last Titration: 01/04/18 07:45 Dose: 0 mcg/hr, 0 mls/hr Vasopressin 20 units/ Dextrose 101 mls @ 9.09 mls/hr IV .Q11H7M [facility]; 0.03 U/MIN PRN Reason: Protocol Last Admin: 01/04/18 17:01 Dose: 9.09 mls/hr NOREPINEPHRINE BIT/0.9 % NACL (Levophed 4 Mg/ 250 Ml Ns Premixed) 4 mg in 250 mls @ 15 mls/hr IV .[id number] PRN; Protocol; 4 MCG/MIN PRN Reason: TITRATE PER MD ORDER Last Admin: 01/04/18 16:56 Dose: 20 mcg/min, 75 mls/hr Midazolam 100 mg/100ml in NS (Midazolam 100 Mg/100ml In Ns) 100 mg in 100 mls @ 1 mls/hr IV .Q24H PRN; Protocol; 1 MG/HR PRN Reason: Agitation Insulin Human Regular (Humulin R Low) 0 units SC ACHS [facility] PRN Reason: Protocol Last Admin: 01/04/18 16:54 Dose: Not Given Levalbuterol HCl (Xopenex) 1.25 mg IH [id number] PRN PRN Reason: Shortness of Breath Last Admin: 01/03/18 13:16 Dose: 1.25 mg Pantoprazole Sodium (Protonix Inj) 40 mg IVP DAILY [facility] Last Admin: 01/04/18 09:52 Dose: 40 mg Potassium Phos/Sodium Phos (Neutra-Phos) 1 pkt PO TID [facility] Last Admin: 12/31/17 18:50 Dose: 1 pkt - Labs Labs: 01/04/18 09:00 01/04/18 09:00 PT 23.8 SECONDS (9.4-12.5) H 01/04/18 09:00 INR 2.04 01/04/18 09:00 APTT 47.0 Seconds (25.1-36.5) H 01/04/18 09:00 - Constitutional Appears: Non-toxic, No Acute Distress - Head Exam Head Exam: ATRAUMATIC, NORMAL INSPECTION - Eye Exam Additional comments: R pupil in fixed dilation - ENT Exam ENT Exam: Mucous Membranes Moist, Normal Oropharynx Additional comments: Pt currently intubated - Respiratory Exam Respiratory Exam: NORMAL BREATHING PATTERN Additional comments: Decreased breath sounds b/l - Cardiovascular Exam Cardiovascular Exam: REGULAR RHYTHM, +S1, +S2 - GI/Abdominal Exam GI & Abdominal Exam: Soft, Normal Bowel Sounds. absent: Distended, Guarding, Tenderness - Extremities Exam Extremities Exam: Full ROM, Normal Capillary Refill, Normal Inspection - Neurological Exam Additional comments: Pt intubated - Skin Skin Exam: Dry, Intact, Warm Assessment and Plan - Assessment and Plan (Free Text) Assessment: 42 year old female PMhx developmental delay, admitted for altered mental status with possible septic shock in the setting of multi-organ failure including liver failure, lactic acidosis, and complicated by possible DIC. Patient likely may have had initial HCAP Aspiration PNA that incited the initial septic shock. Currently in ICU intubated, prognosis poor. Pt full code status. Plan: Acute Hypoxemic Respiratory Failure, likely 2/2 ARDS - Developed episode on 01/01/18 requiring intubation by ICU team - Pt on PRVC, ETT 7, level 25, vT300, Fio2 40, Rate 16, Peep 10 in am, continue to monitor. - On fentanyl drip - Continue with lung-protective ventilation strategy AMS, likely 2/2 Post Ictal State VS Septic Shock - Continue to treat sepsis to treat AMS. Patient relatively back at baseline - F/u CT brain Seizure - resolved - On Keppra Septic Shock - Resolved - Patient is off of pressors - Continue with Zosyn and Vanc Acute Anemia - FOBT sent - Hgb 6.4 this am, s/p 3 units PRBCs, will continue to trend Thrombocytopenia, likely 2/2 DIC - Fibrin degradation products, d-dimer, and fibrinogen results indicate DIC - Treating Septic shock will treat DIC - Patient has been off of Heparin for many days now - S/p transfusion 2 units FFP, pending platelets, per ICU team Acute liver failure - improving since admission - CT Chest/abd/pelvis findings as described above - Abd U/s 12/28: atrophied liver, diffuse increased echogenicity in liver may reflect hepatic steatosis however parenchymal infectious/inflammatory etiologies cannot be excluded; b/l renal atrophy - LFts trending down today - Hepatitis and HIV work-up neg - Acetaminophen levels neg - GI consulted, recs appreciated: at this point, no new recommednations from GI - Anti-mitochondrial Ab neg, smooth muscle Ab neg Fx L Ribs 7-9 CT chest/abd/pelvis findings as listed above Ribs XR: fxs in L 7th and 8th ribs Continue to monitor GI/DVT ppx: Protonix; Heparin held due to low platelets, SCDs Pt seen, examined with, and plan discussed with Dr. Granger, attending. <Jovi Granger - Last Filed: 01/04/18 21:44> Objective - Vital Signs/Intake and Output Vital Signs (last 24 hours): Temp Pulse Resp BP Pulse Ox 96.7 F L 71 38 H 70/35 L 96 01/04/18 17:11 01/04/18 18:00 01/04/18 17:11 01/04/18 17:11 01/04/18 08:00 Intake and Output: 01/04/18 01/05/18 18:59 06:59 Intake Total 3340 Output Total 90 Balance 3250 - Medications Medications: Current Medications Albumin Human (Albumin Human 25% (12.5 Gm/50 Ml)) 12.5 gm IV Q4 [facility] Last Admin: 01/04/18 21:16 Dose: 12.5 gm Bacitracin (Bacitracin) 1 gm TOP TID [facility] Last Admin: 01/04/18 18:56 Dose: 1 gm Dextrose (Dextrose 50% Inj) 25 ml IVP ONCE PRN PRN Reason: Hypoglycemia Last Admin: 01/04/18 04:31 Dose: 25 ml Levetiracetam (Keppra 500mg Ivpb) 500 mg in 100 mls @ 460 mls/hr IV Q12 [facility] Last Admin: 01/04/18 09:52 Dose: 460 mls/hr Piperacillin Sod/Tazobactam Sod (Zosyn 3.375 In Ns 100ml) 100 mls @ 200 mls/hr IVPB Q6 [facility] PRN Reason: Protocol Stop: 01/08/18 19:56 Last Admin: 01/04/18 20:28 Dose: 200 mls/hr Norepinephrine Bitartrate 8 mg (/ Sodium Chloride) 508 mls @ 15.24 mls/hr IV .Q24H PRN; Protocol; 4 MCG/MIN PRN Reason: TITRATE PER MD ORDER Vancomycin HCl (Vancomycin 1gm) 1 gm in 250 mls @ 167 mls/hr IVPB Q12H [facility] PRN Reason: Protocol Stop: 01/11/18 16:31 Last Admin: 01/04/18 19:01 Dose: 167 mls/hr Dextrose (Dextrose 5% In Water 1000 Ml) 1,000 mls @ 100 mls/hr IV .Q10H [facility] Last Admin: 01/04/18 19:05 Dose: 100 mls/hr Fentanyl Citrate (Fentanyl Citrate/Sodium Chloride 1 Mg/100 Ml) 1,000 mcg in 100 mls @ 2 mls/hr IV .Q24H PRN; Protocol; 20 MCG/HR PRN Reason: TITRATE PER MD ORDER Last Titration: 01/04/18 07:45 Dose: 0 mcg/hr, 0 mls/hr Vasopressin 20 units/ Dextrose 101 mls @ 9.09 mls/hr IV .Q11H7M [facility]; 0.03 U/MIN PRN Reason: Protocol Last Admin: 01/04/18 17:01 Dose: 9.09 mls/hr NOREPINEPHRINE BIT/0.9 % NACL (Levophed 4 Mg/ 250 Ml Ns Premixed) 4 mg in 250 mls @ 15 mls/hr IV .[id number] PRN; Protocol; 4 MCG/MIN PRN Reason: TITRATE PER MD ORDER Last Admin: 01/04/18 16:56 Dose: 20 mcg/min, 75 mls/hr Midazolam 100 mg/100ml in NS (Midazolam 100 Mg/100ml In Ns) 100 mg in 100 mls @ 1 mls/hr IV .Q24H PRN; Protocol; 1 MG/HR PRN Reason: Agitation Last Admin: 01/04/18 18:57 Dose: 1 mg/hr, 1 mls/hr Insulin Human Regular (Humulin R Low) 0 units SC ACHS [facility] PRN Reason: Protocol Last Admin: 01/04/18 16:54 Dose: Not Given Levalbuterol HCl (Xopenex) 1.25 mg IH [id number] PRN PRN Reason: Shortness of Breath Last Admin: 01/03/18 13:16 Dose: 1.25 mg Pantoprazole Sodium (Protonix Inj) 40 mg IVP DAILY [facility] Last Admin: 01/04/18 09:52 Dose: 40 mg Potassium Phos/Sodium Phos (Neutra-Phos) 1 pkt PO TID [facility] Last Admin: 12/31/17 18:50 Dose: 1 pkt - Labs Labs: 01/04/18 18:59 01/04/18 18:59 PT 26.8 SECONDS (9.4-12.5) H 01/04/18 21:28 INR 2.31 01/04/18 21:28 APTT 47.0 Seconds (25.1-36.5) H 01/04/18 09:00 Attending/Attestation - Attestation I have personally seen and examined this patient.: Yes I have fully participated in the care of the patient.: Yes I have reviewed all pertinent clinical information, including history, physical exam and plan: Yes Notes (Text): 01/04/18 21:41 Patient seen and examined at bedside. Overnight issues reviewed. vitals, labs and notes reviewed. Multi-speciality follow up ongoing for severe sepsis and associated complications, S/P 1 unit PRBC and FFP transfusion.CT head today for abnormal neuro exam today. Vancomycin to be held in vie of progressive thrombocytopenia. Prognosis remains guarded. Agree with the plan of care as discussed and outlined by the resident.
[2018-01-04] MEDS: Midazolam 100 mg/100ml in NS 100 MG/100 ML SOL IV PRN (18:57)
[2018-01-04 19:05] LABS: HEMOGLOBIN 7.4 g/dL (12.0-16.0); MEAN CELL VOLUME 82.9 fl (80.0-105.0); MEAN CORPUSCULAR HEMOGLOBIN 28.7 pg (25.0-35.0); MEAN CORPUSCULAR HGB CONC 34.6 g/dl (31.0-37.0); RBC 2.58 10^6/uL (3.5-6.1); RED CELL DISTRIBUTION WIDTH 16.6 % (11.5-14.5); WHITE BLOOD COUNT 10.4 10^3/ul (4.5-11.0)
[2018-01-04 19:25] LABS: PLATELET COUNT 28 10^3/uL (120.0-450.0)
[2018-01-04 19:29] LABS: ALB/GLOB RATIO 1.2 (1.1-1.8); ALBUMIN 2.3 g/dL (3.0-4.8); CALCIUM 6.6 mg/dL (8.4-10.5)
[2018-01-04 20:54] LABS: VENOUS BLOOD GAS PO2 258 mm/Hg (30-55)
[2018-01-04 21:37] LABS: INR 2.31; PROTHROMBIN TIME 26.8 SECONDS (9.4-12.5)
[2018-01-05] MEDS: Albumin Human 25% (12.5 gm/50 ml) IV SCH ×7 (00:25→23:59)
[2018-01-05] MEDS: Piperacillin/Tazobact 3.375 gm 100 ML IVPB SCH ×2 (00:26→05:04)
[2018-01-05 00:31] LABS: VENOUS BLOOD GAS BASE EXCESS -4.4 mmol/L (0.0-2.0); VENOUS BLOOD GAS PO2 415 mm/Hg (30-55); VENOUS BLOOD PH 7.43 (7.32-7.43)
[2018-01-05] MEDS: Vancomycin 1gm in NS 250ml 1 GM/250 ML BAG IVPB SCH (03:30)
[2018-01-05 06:31] LABS: ARTERIAL BLOOD GAS HCO3 17.9 mmol/L (21-28); ARTERIAL BLOOD GAS HEMOGLOBIN 5.4 g/dL (11.7-17.4); ARTERIAL BLOOD GAS O2 CAPACITY 8.3 mL/dl (16-24); ARTERIAL BLOOD GAS O2 CONTENT 8.3 ML/dl (15-23); ARTERIAL BLOOD GAS O2 SAT 100.5 % (95-98); ARTERIAL BLOOD GAS PCO2 27 mm/Hg (35-45); ARTERIAL BLOOD GAS PH 7.43 (7.35-7.45); ARTERIAL BLOOD GAS TCO2 18.7 mmol.L (22-28)
[2018-01-05 06:31] LABS: GRAN % 87.5 % (50.0-68.0); LYMPH % 11.3 % (22.0-35.0); MEAN CELL VOLUME 81.1 fl (80.0-105.0); MEAN CORPUSCULAR HEMOGLOBIN 28.5 pg (25.0-35.0); MEAN CORPUSCULAR HGB CONC 35.1 g/dl (31.0-37.0); MONO # 0.1 (0.1-0.6); MONO % 1.2 % (1.0-6.0); RBC 2.28 10^6/uL (3.5-6.1); RED CELL DISTRIBUTION WIDTH 16.8 % (11.5-14.5); WHITE BLOOD COUNT 8.5 10^3/ul (4.5-11.0)
[2018-01-05 06:43] LABS: INR 2.06; PARTIAL THROMBOPLASTIN TIME 53.5 Seconds (25.1-36.5); PROTHROMBIN TIME 24.1 SECONDS (9.4-12.5)
[2018-01-05 07:01] LABS: HEMOGLOBIN 6.5 g/dL (12.0-16.0)
[2018-01-05 07:02] LABS: PLATELET COUNT 22 10^3/uL (120.0-450.0)
[2018-01-05 07:45] LABS: ALB/GLOB RATIO 1.3 (1.1-1.8); ALBUMIN 2.5 g/dL (3.0-4.8); CALCIUM 6.8 mg/dL (8.4-10.5)
--- NOTE | 2018-01-05 08:09 | CP.PCM.PCO ---
Addendum Addendum: 01/05/18 08:00 Event note and CODE STATUS UPDATE: Yesterday 01/04, patient suddenly became hypotensive and hypoxic to 70% despite 100%fio02 Etiology unclear She was given more fentanyl but doubt it would cause this significant of a decline narcan was given with no change I started her on levophed max dose and vasopressin fixed 0.03 which brought her bp up she remained hypoxic I increased her PEEP to 15 and increased sedation with ativan followed by versed drip to be ordered She finally responded to oxygentation and we brought down her PEEP to 10 ABG shows pH of 6.99 so she was also given 2 amp bicarb Labs redrawn Mother was notified last night. This morning I spent 20 minutes talking to her mother - Abdoulaye. I updated her again on Samina's condition I explained to her that although she is responding to treatment today, she may still go in to cardiac arrest at any point I made it clear that she is very fragile and it is very possible that she may not survive this admission I went further and described the process of CPR and gave her my impression that if it came down to CPR, it may do more harm than good given her small stature, malnurished body and already poor quality of life. I also explained some benefits of CPR and exaplained positive outcomes as well. Abdoulaye agreed that CPR is not something she would want on her daughter, if he heart stops then she would want her to pass away in peace. She conveyed to me understanding of DNR and paperwork was filled out CODE STATUS: DNR Ok to intubate/re-intubate Quinton Ruffin MD
[2018-01-05] MEDS: Insulin Reg-LOW-Coverage SC SCH ×4 (08:17→22:00)
--- NOTE | 2018-01-05 08:45 | CP.CCUPN ---
<YuriTenzin - Last Filed: 01/05/18 11:29> CCU Subjective - Physician Review Subjective (Free Text): Tenzin Welch DO PGY1 - Internal Medicine Certified Orthoptist - ICU Progress Note Seen and examined this AM at bedside; No issues reported overnight; has been stable since evening yesterday holding pressures stable w/o need of pressors. ROS unobtainable 01/05/18 11:29 CCU Objective - Vital Signs / Intake & Output Vital Signs (Last 4 hours): Vital Signs Temp Pulse BP Pulse Ox 01/05/18 05:00 96.3 F L 47 L 159/94 H 99 Intake and Output (Last 8hrs): Intake & Output 01/04/18 01/05/18 01/05/18 22:59 06:59 14:59 Intake Total 3270 1600 Output Total 90 50 Balance 3180 1550 Intake: IV 2775 1600 D50 1200 1000 Left Upper arm 1325 350 albumin 150 150 keppra 100 100 Oral 0 0 Tube Feeding 120 Blood Product 325 Red Blood Cells Cpd As1 325 Lr Unit [id number] Other 50 Red Blood Cells Cpd As1 50 Lr Unit [id number] Output: Urine 90 50 Urethral (Jimenez) 90 50 Stool 0 Other: # Bowel Movements 1 2 - Physical Exam Head: Positive for: Atraumatic, Normocephalic Pupils: Positive for: PERRL Extroacular Muscles: Positive for: EOMI Conjunctiva: Positive for: Normal Mouth: Positive for: Other (POOR DENTITION; intubated) Neck: Positive for: Other (Central line access in place. Pressure dressing in place. ) Respiratory/Chest: Positive for: Rhonchi (bilaterally), Other (intubated on PRVC mode). Negative for: Accessory Muscle Use, Wheezes, Decreased Breath Sounds, Rales, Retracting, Tender to Palpation Cardiovascular: Positive for: Regular Rate and Rhythm, Normal S1, S2. Negative for: Murmurs Abdomen: Positive for: Normal Bowel Sounds, Other (Soft; ). Negative for: Tenderness, Distention, Peritoneal Signs, Rebound, Guarding, McBurney's Point Tender, Rovsing's Sign Present, Hernias, Feeding Tubes, Ostomy Tubes, Mass/ Organomegaly, Scars Back: Positive for: Normal Inspection Upper Extremity: Positive for: Normal Inspection. Negative for: Cyanosis, Edema Lower Extremity: Positive for: Normal Inspection, NORMAL PULSES (Pulses diminished BL). Negative for: Edema Neurological: Positive for: Other (Sedated on fentanyl drip; Moves extremities spontaneously; R eye dilated sluggish, L eye constricted reactive. Pupils are unequal ) Skin: Positive for: Warm, Dry, Normal Color. Negative for: Rashes Psychiatric: Positive for: Alert, Lethargic - Medications Active Medications: Active Medications Generic Name Dose Route Start Last Admin Trade Name Freq PRN Reason Stop Dose Admin Albumin Human 12.5 gm 01/02/18 16:00 01/05/18 08:27 Albumin Human 25% (12.5 Gm/50 Ml) IV 12.5 gm Q4 NASH Administration Bacitracin 1 gm 01/02/18 18:00 01/04/18 18:56 Bacitracin TOP 1 gm TID NASH Administration Dextrose 25 ml 01/03/18 00:48 01/04/18 04:31 Dextrose 50% Inj IVP 25 ml ONCE PRN Administration Hypoglycemia Levetiracetam 500 mg in 100 mls @ 460 mls/hr 12/27/17 07:57 01/04/18 22:01 Keppra 500mg Ivpb IV 460 mls/hr Q12 NASH Administration Norepinephrine Bitartrate 8 mg 508 mls @ 15.24 mls/hr 01/01/18 20:12 / Sodium Chloride IV .Q24H PRN TITRATE PER MD ORDER Protocol 4 MCG/MIN Dextrose 1,000 mls @ 100 mls/hr 01/03/18 07:15 01/05/18 05:21 Dextrose 5% In Water 1000 Ml IV 100 mls/hr .Q10H NASH Administration Fentanyl Citrate 1,000 mcg in 100 mls @ 2 mls/hr 01/03/18 17:03 01/04/18 07: 45 Fentanyl Citrate/Sodium Chloride 1 Mg/100 Ml IV 0 mcg/hr .Q24H PRN 0 mls/hr TITRATE PER MD ORDER Titration Protocol 20 MCG/HR Vasopressin 20 units/ Dextrose 101 mls @ 9.09 mls/hr 01/04/18 16:15 01/04/18 17:01 IV 9.09 mls/hr .[id number] NASH Administration Protocol 0.03 U/MIN NOREPINEPHRINE BIT/0.9 % NACL 4 mg in 250 mls @ 15 mls/hr 01/04/18 15:47 06/22 16:56 Levophed 4 Mg/ 250 Ml Ns Premixed IV 20 mcg/min .[id number] PRN 75 mls/hr TITRATE PER MD ORDER Administration Protocol 4 MCG/MIN Midazolam 100 mg/100ml in NS 100 mg in 100 mls @ 1 mls/hr 01/04/18 17:17 06/22 18:57 Midazolam 100 Mg/100ml In Ns IV 1 mg/hr .Q24H PRN 1 mls/hr Agitation Administration Protocol 1 MG/HR Cefepime HCl 1 gm in 100 mls @ 100 mls/hr 01/05/18 10:00 Maxipime 1gm IVPB 01/14/18 10:01 Q12 NASH Protocol Insulin Human Regular 0 units 01/02/18 16:30 01/05/18 08:17 Humulin R Low SC Not Given ACHS NASH Protocol Levalbuterol HCl 1.25 mg 12/31/17 18:28 01/03/18 13:16 Xopenex IH 1.25 mg [id number] PRN Administration Shortness of Breath Pantoprazole Sodium 40 mg 12/26/17 10:00 01/04/18 09:52 Protonix Inj IVP 40 mg DAILY NASH Administration Potassium Phos/Sodium Phos 1 pkt 12/31/17 14:00 12/31/17 18:50 Neutra-Phos PO 1 pkt TID NASH Administration - Patient Studies Lab Studies: Microbiology Studies 01/02/18 07:00 Blood Culture - Preliminary Blood NO GROWTH AFTER 3 DAYS 01/02/18 06:45 Blood Culture - Preliminary Blood NO GROWTH AFTER 3 DAYS 01/03/18 09:00 Gram Stain - Final Trachasp Sputum Culture - Preliminary NORMAL ORAL MAYURI Lab Studies 01/05/18 01/05/18 01/05/18 Range/Units 06:10 05:30 05:30 WBC (4.5-11.0) 10^3/ul RBC (3.5-6.1) 10^6/uL Hgb (12.0-16.0) g/dL Hct (36.0-48.0) % MCV (80.0-105.0) fl MCH (25.0-35.0) pg MCHC (31.0-37.0) g/dl RDW (11.5-14.5) % Plt Count (120.0-450.0) 10^3/uL Gran % (50.0-68.0) % Lymph % (Auto) (22.0-35.0) % [place] % (Auto) (1.0-6.0) % Eos % (Auto) (1.5-5.0) % Baso % (Auto) (0.0-3.0) % Gran # (1.4-6.5) Lymph # (Auto) (1.2-3.4) [place] # (Auto) (0.1-0.6) Eos # (Auto) (0.0-0.7) Baso # (Auto) (0.0-2.0) K/mm3 PT 24.1 H (9.4-12.5) SECONDS INR 2.06 APTT 53.5 H (25.1-36.5) Seconds pCO2 27 L (35-45) mm/Hg pO2 306.0 H (80-100) mm/Hg HCO3 17.9 L (21-28) mmol/L ABG pH 7.43 (7.35-7.45) ABG Total CO2 18.7 L (22-28) mmol.L ABG O2 Saturation 100.5 H (95-98) % ABG O2 Content 8.3 L (15-23) ML/dl ABG Base Excess -6.0 L (-2.0-3.0) mmol/L ABG Hemoglobin 5.4 L (11.7-17.4) g/dL ABG Carboxyhemoglobin 1.4 (0.5-1.5) % POC ABG HHb (Measured) -0.5 L (0-5) % ABG Methemoglobin 1.3 (0.0-3.0) % ABG O2 Capacity 8.3 L (16-24) mL/dl ABG Potassium (3.6-5.2) mmol/L VBG pH (7.32-7.43) VBG pCO2 (40-60) VBG HCO3 (21-28) mmol/l VBG Total CO2 (22-28) mmol.L VBG O2 Sat (Calc) (40-65) % VBG Base Excess (0.0-2.0) mmol/L VBG Potassium (3.6-5.2) mmol/L Hgb O2 Saturation 97.8 (95.0-98.0) % Glucose (65-105) mg/dl Lactate (0.7-2.1) mmol/L Mechanical Rate FiO2 100.0 % Tidal Volume PEEP Sodium 138 (132-148) mmol/L Potassium 3.9 (3.6-5.0) mmol/L Chloride 103 (98-107) mmol/L Carbon Dioxide 18 L (21-33) mmol/L Anion Gap 21 H (10-20) BUN 31 H (7-21) mg/dL Creatinine 1.3 H (0.7-1.2) mg/dl Est GFR ( Amer) 54 Est GFR (Non-Af Amer) 44 POC Glucose (mg/dL) (65-110) mg/dL Random Glucose 112 H (70-110) mg/dL Lactic Acid (0.7-2.1) mmol/L Calcium 6.8 L* (8.4-10.5) mg/dL Phosphorus 3.3 (2.5-4.5) mg/dL Magnesium 1.6 L (1.7-2.2) mg/dL Total Bilirubin 4.1 H (0.2-1.3) mg/dL AST 259 H D (14-36) U/L ALT 244 H (7-56) U/L Alkaline Phosphatase 288 H (38-126) U/L Total Protein 4.5 L (5.8-8.3) g/dL Albumin 2.5 L (3.0-4.8) g/dL Globulin 2.0 gm/dL Albumin/Globulin Ratio 1.3 (1.1-1.8) Lipase (23-300) U/L Arterial Blood Potassium (3.6-5.2) mmol/L Venous Blood Potassium (3.6-5.2) mmol/L Blood Type Antibody Screen Crossmatch BBK History Checked 01/05/18 01/05/18 01/05/18 Range/Units 05:30 05:25 02:21 WBC 8.5 (4.5-11.0) 10^3/ul RBC 2.28 L (3.5-6.1) 10^6/uL Hgb 6.5 L* (12.0-16.0) g/dL Hct 18.5 L* (36.0-48.0) % MCV 81.1 (80.0-105.0) fl MCH 28.5 (25.0-35.0) pg MCHC 35.1 (31.0-37.0) g/dl RDW 16.8 H (11.5-14.5) % Plt Count 22 L* (120.0-450.0) 10^3/uL Gran % 87.5 H (50.0-68.0) % Lymph % (Auto) 11.3 L (22.0-35.0) % [place] % (Auto) 1.2 (1.0-6.0) % Eos % (Auto) 0.0 L (1.5-5.0) % Baso % (Auto) 0.0 (0.0-3.0) % Gran # 7.40 H (1.4-6.5) Lymph # (Auto) 1.0 L (1.2-3.4) [place] # (Auto) 0.1 (0.1-0.6) Eos # (Auto) 0.0 (0.0-0.7) Baso # (Auto) 0.00 (0.0-2.0) K/mm3 PT (9.4-12.5) SECONDS INR APTT (25.1-36.5) Seconds pCO2 (35-45) mm/Hg pO2 (80-100) mm/Hg HCO3 (21-28) mmol/L ABG pH (7.35-7.45) ABG Total CO2 (22-28) mmol.L ABG O2 Saturation (95-98) % ABG O2 Content (15-23) ML/dl ABG Base Excess (-2.0-3.0) mmol/L ABG Hemoglobin (11.7-17.4) g/dL ABG Carboxyhemoglobin (0.5-1.5) % POC ABG HHb (Measured) (0-5) % ABG Methemoglobin (0.0-3.0) % ABG O2 Capacity (16-24) mL/dl ABG Potassium (3.6-5.2) mmol/L VBG pH (7.32-7.43) VBG pCO2 (40-60) VBG HCO3 (21-28) mmol/l VBG Total CO2 (22-28) mmol.L VBG O2 Sat (Calc) (40-65) % VBG Base Excess (0.0-2.0) mmol/L VBG Potassium (3.6-5.2) mmol/L Hgb O2 Saturation (95.0-98.0) % Glucose (65-105) mg/dl Lactate (0.7-2.1) mmol/L Mechanical Rate FiO2 % Tidal Volume PEEP Sodium (132-148) mmol/L Potassium (3.6-5.0) mmol/L Chloride (98-107) mmol/L Carbon Dioxide (21-33) mmol/L Anion Gap (10-20) BUN (7-21) mg/dL Creatinine (0.7-1.2) mg/dl Est GFR ( Amer) Est GFR (Non-Af Amer) POC Glucose (mg/dL) 115 H 102 (65-110) mg/dL Random Glucose (70-110) mg/dL Lactic Acid (0.7-2.1) mmol/L Calcium (8.4-10.5) mg/dL Phosphorus (2.5-4.5) mg/dL Magnesium (1.7-2.2) mg/dL Total Bilirubin (0.2-1.3) mg/dL AST (14-36) U/L ALT (7-56) U/L Alkaline Phosphatase (38-126) U/L Total Protein (5.8-8.3) g/dL Albumin (3.0-4.8) g/dL Globulin gm/dL Albumin/Globulin Ratio (1.1-1.8) Lipase (23-300) U/L Arterial Blood Potassium (3.6-5.2) mmol/L Venous Blood Potassium (3.6-5.2) mmol/L Blood Type Antibody Screen Crossmatch BBK History Checked 01/05/18 01/05/18 01/04/18 Range/Units 00:50 00:05 22:05 WBC (4.5-11.0) 10^3/ul RBC (3.5-6.1) 10^6/uL Hgb (12.0-16.0) g/dL Hct (36.0-48.0) % MCV (80.0-105.0) fl MCH (25.0-35.0) pg MCHC (31.0-37.0) g/dl RDW (11.5-14.5) % Plt Count (120.0-450.0) 10^3/uL Gran % (50.0-68.0) % Lymph % (Auto) (22.0-35.0) % [place] % (Auto) (1.0-6.0) % Eos % (Auto) (1.5-5.0) % Baso % (Auto) (0.0-3.0) % Gran # (1.4-6.5) Lymph # (Auto) (1.2-3.4) [place] # (Auto) (0.1-0.6) Eos # (Auto) (0.0-0.7) Baso # (Auto) (0.0-2.0) K/mm3 PT (9.4-12.5) SECONDS INR APTT (25.1-36.5) Seconds pCO2 (35-45) mm/Hg pO2 415 H (80-100) mm/Hg HCO3 (21-28) mmol/L ABG pH (7.35-7.45) ABG Total CO2 (22-28) mmol.L ABG O2 Saturation (95-98) % ABG O2 Content (15-23) ML/dl ABG Base Excess (-2.0-3.0) mmol/L ABG Hemoglobin (11.7-17.4) g/dL ABG Carboxyhemoglobin (0.5-1.5) % POC ABG HHb (Measured) (0-5) % ABG Methemoglobin (0.0-3.0) % ABG O2 Capacity (16-24) mL/dl ABG Potassium (3.6-5.2) mmol/L VBG pH 7.43 (7.32-7.43) VBG pCO2 28.0 L (40-60) VBG HCO3 18.6 L (21-28) mmol/l VBG Total CO2 19.5 L (22-28) mmol.L VBG O2 Sat (Calc) 100.6 H (40-65) % VBG Base Excess -4.4 L (0.0-2.0) mmol/L VBG Potassium 3.9 (3.6-5.2) mmol/L Hgb O2 Saturation (95.0-98.0) % Glucose 100 (65-105) mg/dl Lactate 3.6 H (0.7-2.1) mmol/L Mechanical Rate FiO2 21.0 % Tidal Volume PEEP Sodium 136.0 (132-148) mmol/L Potassium (3.6-5.0) mmol/L Chloride 107.0 (98-107) mmol/L Carbon Dioxide (21-33) mmol/L Anion Gap (10-20) BUN (7-21) mg/dL Creatinine (0.7-1.2) mg/dl Est GFR ( Amer) Est GFR (Non-Af Amer) POC Glucose (mg/dL) 92 80 (65-110) mg/dL Random Glucose (70-110) mg/dL Lactic Acid (0.7-2.1) mmol/L Calcium (8.4-10.5) mg/dL Phosphorus (2.5-4.5) mg/dL Magnesium (1.7-2.2) mg/dL Total Bilirubin (0.2-1.3) mg/dL AST (14-36) U/L ALT (7-56) U/L Alkaline Phosphatase (38-126) U/L Total Protein (5.8-8.3) g/dL Albumin (3.0-4.8) g/dL Globulin gm/dL Albumin/Globulin Ratio (1.1-1.8) Lipase (23-300) U/L Arterial Blood Potassium (3.6-5.2) mmol/L Venous Blood Potassium 3.9 (3.6-5.2) mmol/L Blood Type Antibody Screen Crossmatch BBK History Checked 01/04/18 01/04/18 01/04/18 Range/Units 21:28 20:49 18:59 WBC (4.5-11.0) 10^3/ul RBC (3.5-6.1) 10^6/uL Hgb (12.0-16.0) g/dL Hct (36.0-48.0) % MCV (80.0-105.0) fl MCH (25.0-35.0) pg MCHC (31.0-37.0) g/dl RDW (11.5-14.5) % Plt Count (120.0-450.0) 10^3/uL Gran % (50.0-68.0) % Lymph % (Auto) (22.0-35.0) % [place] % (Auto) (1.0-6.0) % Eos % (Auto) (1.5-5.0) % Baso % (Auto) (0.0-3.0) % Gran # (1.4-6.5) Lymph # (Auto) (1.2-3.4) [place] # (Auto) (0.1-0.6) Eos # (Auto) (0.0-0.7) Baso # (Auto) (0.0-2.0) K/mm3 PT 26.8 H (9.4-12.5) SECONDS INR 2.31 APTT (25.1-36.5) Seconds pCO2 (35-45) mm/Hg pO2 258 H (80-100) mm/Hg HCO3 (21-28) mmol/L ABG pH (7.35-7.45) ABG Total CO2 (22-28) mmol.L ABG O2 Saturation (95-98) % ABG O2 Content (15-23) ML/dl ABG Base Excess (-2.0-3.0) mmol/L ABG Hemoglobin (11.7-17.4) g/dL ABG Carboxyhemoglobin (0.5-1.5) % POC ABG HHb (Measured) (0-5) % ABG Methemoglobin (0.0-3.0) % ABG O2 Capacity (16-24) mL/dl ABG Potassium (3.6-5.2) mmol/L VBG pH 7.40 (7.32-7.43) VBG pCO2 30.0 L (40-60) VBG HCO3 18.6 L (21-28) mmol/l VBG Total CO2 19.5 L (22-28) mmol.L VBG O2 Sat (Calc) 100.1 H (40-65) % VBG Base Excess -5.0 L (0.0-2.0) mmol/L VBG Potassium 4.3 (3.6-5.2) mmol/L Hgb O2 Saturation (95.0-98.0) % Glucose 80 (65-105) mg/dl Lactate 4.6 H* (0.7-2.1) mmol/L Mechanical Rate FiO2 21.0 % Tidal Volume PEEP Sodium 137.0 140 (132-148) mmol/L Potassium 4.0 (3.6-5.0) mmol/L Chloride 108.0 H 105 (98-107) mmol/L Carbon Dioxide 16 L (21-33) mmol/L Anion Gap 23 H (10-20) BUN 27 H (7-21) mg/dL Creatinine 1.3 H (0.7-1.2) mg/dl Est GFR ( Amer) 54 Est GFR (Non-Af Amer) 44 POC Glucose (mg/dL) (65-110) mg/dL Random Glucose 118 H (70-110) mg/dL Lactic Acid (0.7-2.1) mmol/L Calcium 6.6 L* (8.4-10.5) mg/dL Phosphorus (2.5-4.5) mg/dL Magnesium (1.7-2.2) mg/dL Total Bilirubin 4.0 H (0.2-1.3) mg/dL AST 182 H D (14-36) U/L ALT 196 H (7-56) U/L Alkaline Phosphatase 269 H (38-126) U/L Total Protein 4.2 L (5.8-8.3) g/dL Albumin 2.3 L (3.0-4.8) g/dL Globulin 1.9 gm/dL Albumin/Globulin Ratio 1.2 (1.1-1.8) Lipase (23-300) U/L Arterial Blood Potassium (3.6-5.2) mmol/L Venous Blood Potassium 4.3 (3.6-5.2) mmol/L Blood Type Antibody Screen Crossmatch BBK History Checked 01/04/18 01/04/18 01/04/18 Range/Units 18:59 18:59 17:52 WBC 10.4 D (4.5-11.0) 10^3/ul RBC 2.58 L (3.5-6.1) 10^6/uL Hgb 7.4 L (12.0-16.0) g/dL Hct 21.4 L (36.0-48.0) % MCV 82.9 (80.0-105.0) fl MCH 28.7 (25.0-35.0) pg MCHC 34.6 (31.0-37.0) g/dl RDW 16.6 H (11.5-14.5) % Plt Count 28 L* (120.0-450.0) 10^3/uL Gran % (50.0-68.0) % Lymph % (Auto) (22.0-35.0) % [place] % (Auto) (1.0-6.0) % Eos % (Auto) (1.5-5.0) % Baso % (Auto) (0.0-3.0) % Gran # (1.4-6.5) Lymph # (Auto) (1.2-3.4) [place] # (Auto) (0.1-0.6) Eos # (Auto) (0.0-0.7) Baso # (Auto) (0.0-2.0) K/mm3 PT (9.4-12.5) SECONDS INR APTT (25.1-36.5) Seconds pCO2 (35-45) mm/Hg pO2 (80-100) mm/Hg HCO3 (21-28) mmol/L ABG pH (7.35-7.45) ABG Total CO2 (22-28) mmol.L ABG O2 Saturation (95-98) % ABG O2 Content (15-23) ML/dl ABG Base Excess (-2.0-3.0) mmol/L ABG Hemoglobin (11.7-17.4) g/dL ABG Carboxyhemoglobin (0.5-1.5) % POC ABG HHb (Measured) (0-5) % ABG Methemoglobin (0.0-3.0) % ABG O2 Capacity (16-24) mL/dl ABG Potassium (3.6-5.2) mmol/L VBG pH (7.32-7.43) VBG pCO2 (40-60) VBG HCO3 (21-28) mmol/l VBG Total CO2 (22-28) mmol.L VBG O2 Sat (Calc) (40-65) % VBG Base Excess (0.0-2.0) mmol/L VBG Potassium (3.6-5.2) mmol/L Hgb O2 Saturation (95.0-98.0) % Glucose (65-105) mg/dl Lactate (0.7-2.1) mmol/L Mechanical Rate FiO2 % Tidal Volume PEEP Sodium (132-148) mmol/L Potassium (3.6-5.0) mmol/L Chloride (98-107) mmol/L Carbon Dioxide (21-33) mmol/L Anion Gap (10-20) BUN (7-21) mg/dL Creatinine (0.7-1.2) mg/dl Est GFR ( Amer) Est GFR (Non-Af Amer) POC Glucose (mg/dL) 128 H (65-110) mg/dL Random Glucose (70-110) mg/dL Lactic Acid 5.5 H* (0.7-2.1) mmol/L Calcium (8.4-10.5) mg/dL Phosphorus (2.5-4.5) mg/dL Magnesium (1.7-2.2) mg/dL Total Bilirubin (0.2-1.3) mg/dL AST (14-36) U/L ALT (7-56) U/L Alkaline Phosphatase (38-126) U/L Total Protein (5.8-8.3) g/dL Albumin (3.0-4.8) g/dL Globulin gm/dL Albumin/Globulin Ratio (1.1-1.8) Lipase (23-300) U/L Arterial Blood Potassium (3.6-5.2) mmol/L Venous Blood Potassium (3.6-5.2) mmol/L Blood Type Antibody Screen Crossmatch BBK History Checked 01/04/18 01/04/18 01/04/18 Range/Units 16:17 13:49 11:49 WBC (4.5-11.0) 10^3/ul RBC (3.5-6.1) 10^6/uL Hgb (12.0-16.0) g/dL Hct (36.0-48.0) % MCV (80.0-105.0) fl MCH (25.0-35.0) pg MCHC (31.0-37.0) g/dl RDW (11.5-14.5) % Plt Count (120.0-450.0) 10^3/uL Gran % (50.0-68.0) % Lymph % (Auto) (22.0-35.0) % [place] % (Auto) (1.0-6.0) % Eos % (Auto) (1.5-5.0) % Baso % (Auto) (0.0-3.0) % Gran # (1.4-6.5) Lymph # (Auto) (1.2-3.4) [place] # (Auto) (0.1-0.6) Eos # (Auto) (0.0-0.7) Baso # (Auto) (0.0-2.0) K/mm3 PT (9.4-12.5) SECONDS INR APTT (25.1-36.5) Seconds pCO2 44 (35-45) mm/Hg pO2 49.0 L (80-100) mm/Hg HCO3 10.6 L (21-28) mmol/L ABG pH 6.99 L* (7.35-7.45) ABG Total CO2 12.0 L (22-28) mmol.L ABG O2 Saturation 77.7 L (95-98) % ABG O2 Content (15-23) ML/dl ABG Base Excess -20.5 L (-2.0-3.0) mmol/L ABG Hemoglobin (11.7-17.4) g/dL ABG Carboxyhemoglobin (0.5-1.5) % POC ABG HHb (Measured) (0-5) % ABG Methemoglobin (0.0-3.0) % ABG O2 Capacity (16-24) mL/dl ABG Potassium 4.6 (3.6-5.2) mmol/L VBG pH (7.32-7.43) VBG pCO2 (40-60) VBG HCO3 (21-28) mmol/l VBG Total CO2 (22-28) mmol.L VBG O2 Sat (Calc) (40-65) % VBG Base Excess (0.0-2.0) mmol/L VBG Potassium (3.6-5.2) mmol/L Hgb O2 Saturation (95.0-98.0) % Glucose 104 (65-105) mg/dl Lactate 6.7 H* (0.7-2.1) mmol/L Mechanical Rate 16 FiO2 100.0 % Tidal Volume 300 PEEP 10 Sodium 136.0 (132-148) mmol/L Potassium (3.6-5.0) mmol/L Chloride 109.0 H (98-107) mmol/L Carbon Dioxide (21-33) mmol/L Anion Gap (10-20) BUN (7-21) mg/dL Creatinine (0.7-1.2) mg/dl Est GFR ( Amer) Est GFR (Non-Af Amer) POC Glucose (mg/dL) 159 H 162 H (65-110) mg/dL Random Glucose (70-110) mg/dL Lactic Acid (0.7-2.1) mmol/L Calcium (8.4-10.5) mg/dL Phosphorus (2.5-4.5) mg/dL Magnesium (1.7-2.2) mg/dL Total Bilirubin (0.2-1.3) mg/dL AST (14-36) U/L ALT (7-56) U/L Alkaline Phosphatase (38-126) U/L Total Protein (5.8-8.3) g/dL Albumin (3.0-4.8) g/dL Globulin gm/dL Albumin/Globulin Ratio (1.1-1.8) Lipase (23-300) U/L Arterial Blood Potassium 4.6 (3.6-5.2) mmol/L Venous Blood Potassium (3.6-5.2) mmol/L Blood Type Antibody Screen Crossmatch BBK History Checked 01/04/18 01/04/18 01/04/18 Range/Units 11:00 11:00 10:01 WBC (4.5-11.0) 10^3/ul RBC (3.5-6.1) 10^6/uL Hgb (12.0-16.0) g/dL Hct (36.0-48.0) % MCV (80.0-105.0) fl MCH (25.0-35.0) pg MCHC (31.0-37.0) g/dl RDW (11.5-14.5) % Plt Count (120.0-450.0) 10^3/uL Gran % (50.0-68.0) % Lymph % (Auto) (22.0-35.0) % [place] % (Auto) (1.0-6.0) % Eos % (Auto) (1.5-5.0) % Baso % (Auto) (0.0-3.0) % Gran # (1.4-6.5) Lymph # (Auto) (1.2-3.4) [place] # (Auto) (0.1-0.6) Eos # (Auto) (0.0-0.7) Baso # (Auto) (0.0-2.0) K/mm3 PT (9.4-12.5) SECONDS INR APTT (25.1-36.5) Seconds pCO2 30 L (35-45) mm/Hg pO2 63.0 L (80-100) mm/Hg HCO3 19.0 L (21-28) mmol/L ABG pH 7.41 (7.35-7.45) ABG Total CO2 19.9 L (22-28) mmol.L ABG O2 Saturation 96.7 (95-98) % ABG O2 Content 7.2 L (15-23) ML/dl ABG Base Excess -5.2 L (-2.0-3.0) mmol/L ABG Hemoglobin 5.4 L (11.7-17.4) g/dL ABG Carboxyhemoglobin 2.0 H (0.5-1.5) % POC ABG HHb (Measured) 3.2 (0-5) % ABG Methemoglobin 1.0 (0.0-3.0) % ABG O2 Capacity 7.4 L (16-24) mL/dl ABG Potassium (3.6-5.2) mmol/L VBG pH (7.32-7.43) VBG pCO2 (40-60) VBG HCO3 (21-28) mmol/l VBG Total CO2 (22-28) mmol.L VBG O2 Sat (Calc) (40-65) % VBG Base Excess (0.0-2.0) mmol/L VBG Potassium (3.6-5.2) mmol/L Hgb O2 Saturation 93.8 L (95.0-98.0) % Glucose (65-105) mg/dl Lactate (0.7-2.1) mmol/L Mechanical Rate FiO2 60.0 % Tidal Volume PEEP Sodium (132-148) mmol/L Potassium (3.6-5.0) mmol/L Chloride (98-107) mmol/L Carbon Dioxide (21-33) mmol/L Anion Gap (10-20) BUN (7-21) mg/dL Creatinine (0.7-1.2) mg/dl Est GFR ( Amer) Est GFR (Non-Af Amer) POC Glucose (mg/dL) 158 H (65-110) mg/dL Random Glucose (70-110) mg/dL Lactic Acid (0.7-2.1) mmol/L Calcium (8.4-10.5) mg/dL Phosphorus (2.5-4.5) mg/dL Magnesium (1.7-2.2) mg/dL Total Bilirubin (0.2-1.3) mg/dL AST (14-36) U/L ALT (7-56) U/L Alkaline Phosphatase (38-126) U/L Total Protein (5.8-8.3) g/dL Albumin (3.0-4.8) g/dL Globulin gm/dL Albumin/Globulin Ratio (1.1-1.8) Lipase (23-300) U/L Arterial Blood Potassium (3.6-5.2) mmol/L Venous Blood Potassium (3.6-5.2) mmol/L Blood Type A NEGATIVE Antibody Screen Negative Crossmatch See Detail BBK History Checked Patient has bt 01/04/18 01/04/18 01/04/18 Range/Units 09:00 09:00 09:00 WBC (4.5-11.0) 10^3/ul RBC (3.5-6.1) 10^6/uL Hgb (12.0-16.0) g/dL Hct (36.0-48.0) % MCV (80.0-105.0) fl MCH (25.0-35.0) pg MCHC (31.0-37.0) g/dl RDW (11.5-14.5) % Plt Count (120.0-450.0) 10^3/uL Gran % (50.0-68.0) % Lymph % (Auto) (22.0-35.0) % [place] % (Auto) (1.0-6.0) % Eos % (Auto) (1.5-5.0) % Baso % (Auto) (0.0-3.0) % Gran # (1.4-6.5) Lymph # (Auto) (1.2-3.4) [place] # (Auto) (0.1-0.6) Eos # (Auto) (0.0-0.7) Baso # (Auto) (0.0-2.0) K/mm3 PT 23.8 H (9.4-12.5) SECONDS INR 2.04 APTT 47.0 H (25.1-36.5) Seconds pCO2 (35-45) mm/Hg pO2 (80-100) mm/Hg HCO3 (21-28) mmol/L ABG pH (7.35-7.45) ABG Total CO2 (22-28) mmol.L ABG O2 Saturation (95-98) % ABG O2 Content (15-23) ML/dl ABG Base Excess (-2.0-3.0) mmol/L ABG Hemoglobin (11.7-17.4) g/dL ABG Carboxyhemoglobin (0.5-1.5) % POC ABG HHb (Measured) (0-5) % ABG Methemoglobin (0.0-3.0) % ABG O2 Capacity (16-24) mL/dl ABG Potassium (3.6-5.2) mmol/L VBG pH (7.32-7.43) VBG pCO2 (40-60) VBG HCO3 (21-28) mmol/l VBG Total CO2 (22-28) mmol.L VBG O2 Sat (Calc) (40-65) % VBG Base Excess (0.0-2.0) mmol/L VBG Potassium (3.6-5.2) mmol/L Hgb O2 Saturation (95.0-98.0) % Glucose (65-105) mg/dl Lactate (0.7-2.1) mmol/L Mechanical Rate FiO2 % Tidal Volume PEEP Sodium 142 (132-148) mmol/L Potassium 4.8 (3.6-5.0) mmol/L Chloride 106 (98-107) mmol/L Carbon Dioxide 19 L (21-33) mmol/L Anion Gap 21 H (10-20) BUN 26 H (7-21) mg/dL Creatinine 1.2 (0.7-1.2) mg/dl Est GFR ( Amer) 59 Est GFR (Non-Af Amer) 49 POC Glucose (mg/dL) (65-110) mg/dL Random Glucose 132 H (70-110) mg/dL Lactic Acid (0.7-2.1) mmol/L Calcium 7.1 L (8.4-10.5) mg/dL Phosphorus 3.3 (2.5-4.5) mg/dL Magnesium 1.8 (1.7-2.2) mg/dL Total Bilirubin 3.0 H (0.2-1.3) mg/dL AST 98 H (14-36) U/L ALT 180 H (7-56) U/L Alkaline Phosphatase 287 H D (38-126) U/L Total Protein 4.6 L (5.8-8.3) g/dL Albumin 2.6 L (3.0-4.8) g/dL Globulin 2.0 gm/dL Albumin/Globulin Ratio 1.3 (1.1-1.8) Lipase 194 (23-300) U/L Arterial Blood Potassium (3.6-5.2) mmol/L Venous Blood Potassium (3.6-5.2) mmol/L Blood Type Antibody Screen Crossmatch BBK History Checked 01/04/18 01/04/18 12/26/17 Range/Units 09:00 07:55 03:00 WBC 14.8 H (4.5-11.0) 10^3/ul RBC 2.27 L (3.5-6.1) 10^6/uL Hgb 6.4 L* (12.0-16.0) g/dL Hct 18.3 L* (36.0-48.0) % MCV 80.6 (80.0-105.0) fl MCH 28.2 (25.0-35.0) pg MCHC 35.0 (31.0-37.0) g/dl RDW 17.4 H (11.5-14.5) % Plt Count 35 L* (120.0-450.0) 10^3/uL Gran % 93.0 H (50.0-68.0) % Lymph % (Auto) 6.6 L (22.0-35.0) % [place] % (Auto) 0.4 L (1.0-6.0) % Eos % (Auto) 0.0 L (1.5-5.0) % Baso % (Auto) 0.0 (0.0-3.0) % Gran # 13.72 H (1.4-6.5) Lymph # (Auto) 1.0 L (1.2-3.4) [place] # (Auto) 0.1 (0.1-0.6) Eos # (Auto) 0.0 (0.0-0.7) Baso # (Auto) 0.00 (0.0-2.0) K/mm3 PT (9.4-12.5) SECONDS INR APTT (25.1-36.5) Seconds pCO2 (35-45) mm/Hg pO2 (80-100) mm/Hg HCO3 (21-28) mmol/L ABG pH (7.35-7.45) ABG Total CO2 (22-28) mmol.L ABG O2 Saturation (95-98) % ABG O2 Content (15-23) ML/dl ABG Base Excess (-2.0-3.0) mmol/L ABG Hemoglobin (11.7-17.4) g/dL ABG Carboxyhemoglobin (0.5-1.5) % POC ABG HHb (Measured) (0-5) % ABG Methemoglobin (0.0-3.0) % ABG O2 Capacity (16-24) mL/dl ABG Potassium (3.6-5.2) mmol/L VBG pH (7.32-7.43) VBG pCO2 (40-60) VBG HCO3 (21-28) mmol/l VBG Total CO2 (22-28) mmol.L VBG O2 Sat (Calc) (40-65) % VBG Base Excess (0.0-2.0) mmol/L VBG Potassium (3.6-5.2) mmol/L Hgb O2 Saturation (95.0-98.0) % Glucose (65-105) mg/dl Lactate (0.7-2.1) mmol/L Mechanical Rate FiO2 % Tidal Volume PEEP Sodium (132-148) mmol/L Potassium (3.6-5.0) mmol/L Chloride (98-107) mmol/L Carbon Dioxide (21-33) mmol/L Anion Gap (10-20) BUN (7-21) mg/dL Creatinine (0.7-1.2) mg/dl Est GFR ( Amer) Est GFR (Non-Af Amer) POC Glucose (mg/dL) 182 H (65-110) mg/dL Random Glucose (70-110) mg/dL Lactic Acid (0.7-2.1) mmol/L Calcium (8.4-10.5) mg/dL Phosphorus (2.5-4.5) mg/dL Magnesium (1.7-2.2) mg/dL Total Bilirubin (0.2-1.3) mg/dL AST (14-36) U/L ALT (7-56) U/L Alkaline Phosphatase (38-126) U/L Total Protein (5.8-8.3) g/dL Albumin (3.0-4.8) g/dL Globulin gm/dL Albumin/Globulin Ratio (1.1-1.8) Lipase (23-300) U/L Arterial Blood Potassium (3.6-5.2) mmol/L Venous Blood Potassium (3.6-5.2) mmol/L Blood Type Antibody Screen Crossmatch See Detail BBK History Checked Laboratory Results - last 24 hr 12/26/17 01/04/18 01/04/18 03:00 07:55 09:00 WBC 14.8 H RBC 2.27 L Hgb 6.4 L* Hct 18.3 L* MCV 80.6 MCH 28.2 MCHC 35.0 RDW 17.4 H Plt Count 35 L* Gran % 93.0 H Lymph % (Auto) 6.6 L [place] % (Auto) 0.4 L Eos % (Auto) 0.0 L Baso % (Auto) 0.0 Gran # 13.72 H Lymph # (Auto) 1.0 L [place] # (Auto) 0.1 Eos # (Auto) 0.0 Baso # (Auto) 0.00 PT INR APTT pCO2 pO2 HCO3 ABG pH ABG Total CO2 ABG O2 Saturation ABG O2 Content ABG Base Excess ABG Hemoglobin ABG Carboxyhemoglobin POC ABG HHb (Measured) ABG Methemoglobin ABG O2 Capacity ABG Potassium VBG pH VBG pCO2 VBG HCO3 VBG Total CO2 VBG O2 Sat (Calc) VBG Base Excess VBG Potassium Hgb O2 Saturation Glucose Lactate Mechanical Rate FiO2 Tidal Volume PEEP Sodium Potassium Chloride Carbon Dioxide Anion Gap BUN Creatinine Est GFR ( Amer) Est GFR (Non-Af Amer) POC Glucose (mg/dL) 182 H Random Glucose Lactic Acid Calcium Phosphorus Magnesium Total Bilirubin AST ALT Alkaline Phosphatase Total Protein Albumin Globulin Albumin/Globulin Ratio Lipase Arterial Blood Potassium Venous Blood Potassium Blood Type Antibody Screen Crossmatch See Detail BBK History Checked 01/04/18 01/04/18 01/04/18 09:00 09:00 09:00 WBC RBC Hgb Hct MCV MCH MCHC RDW Plt Count Gran % Lymph % (Auto) [place] % (Auto) Eos % (Auto) Baso % (Auto) Gran # Lymph # (Auto) [place] # (Auto) Eos # (Auto) Baso # (Auto) PT 23.8 H INR 2.04 APTT 47.0 H pCO2 pO2 HCO3 ABG pH ABG Total CO2 ABG O2 Saturation ABG O2 Content ABG Base Excess ABG Hemoglobin ABG Carboxyhemoglobin POC ABG HHb (Measured) ABG Methemoglobin ABG O2 Capacity ABG Potassium VBG pH VBG pCO2 VBG HCO3 VBG Total CO2 VBG O2 Sat (Calc) VBG Base Excess VBG Potassium Hgb O2 Saturation Glucose Lactate Mechanical Rate FiO2 Tidal Volume PEEP Sodium 142 Potassium 4.8 Chloride 106 Carbon Dioxide 19 L Anion Gap 21 H BUN 26 H Creatinine 1.2 Est GFR ( Amer) 59 Est GFR (Non-Af Amer) 49 POC Glucose (mg/dL) Random Glucose 132 H Lactic Acid Calcium 7.1 L Phosphorus 3.3 Magnesium 1.8 Total Bilirubin 3.0 H AST 98 H ALT 180 H Alkaline Phosphatase 287 H D Total Protein 4.6 L Albumin 2.6 L Globulin 2.0 Albumin/Globulin Ratio 1.3 Lipase 194 Arterial Blood Potassium Venous Blood Potassium Blood Type Antibody Screen Crossmatch BBK History Checked 01/04/18 01/04/18 01/04/18 10:01 11:00 11:00 WBC RBC Hgb Hct MCV MCH MCHC RDW Plt Count Gran % Lymph % (Auto) [place] % (Auto) Eos % (Auto) Baso % (Auto) Gran # Lymph # (Auto) [place] # (Auto) Eos # (Auto) Baso # (Auto) PT INR APTT pCO2 30 L pO2 63.0 L HCO3 19.0 L ABG pH 7.41 ABG Total CO2 19.9 L ABG O2 Saturation 96.7 ABG O2 Content 7.2 L ABG Base Excess -5.2 L ABG Hemoglobin 5.4 L ABG Carboxyhemoglobin 2.0 H POC ABG HHb (Measured) 3.2 ABG Methemoglobin 1.0 ABG O2 Capacity 7.4 L ABG Potassium VBG pH VBG pCO2 VBG HCO3 VBG Total CO2 VBG O2 Sat (Calc) VBG Base Excess VBG Potassium Hgb O2 Saturation 93.8 L Glucose Lactate Mechanical Rate FiO2 60.0 Tidal Volume PEEP Sodium Potassium Chloride Carbon Dioxide Anion Gap BUN Creatinine Est GFR ( Amer) Est GFR (Non-Af Amer) POC Glucose (mg/dL) 158 H Random Glucose Lactic Acid Calcium Phosphorus Magnesium Total Bilirubin AST ALT Alkaline Phosphatase Total Protein Albumin Globulin Albumin/Globulin Ratio Lipase Arterial Blood Potassium Venous Blood Potassium Blood Type A NEGATIVE Antibody Screen Negative Crossmatch See Detail BBK History Checked Patient has bt 01/04/18 01/04/18 01/04/18 11:49 13:49 16:17 WBC RBC Hgb Hct MCV MCH MCHC RDW Plt Count Gran % Lymph % (Auto) [place] % (Auto) Eos % (Auto) Baso % (Auto) Gran # Lymph # (Auto) [place] # (Auto) Eos # (Auto) Baso # (Auto) PT INR APTT pCO2 44 pO2 49.0 L HCO3 10.6 L ABG pH 6.99 L* ABG Total CO2 12.0 L ABG O2 Saturation 77.7 L ABG O2 Content ABG Base Excess -20.5 L ABG Hemoglobin ABG Carboxyhemoglobin POC ABG HHb (Measured) ABG Methemoglobin ABG O2 Capacity ABG Potassium 4.6 VBG pH VBG pCO2 VBG HCO3 VBG Total CO2 VBG O2 Sat (Calc) VBG Base Excess VBG Potassium Hgb O2 Saturation Glucose 104 Lactate 6.7 H* Mechanical Rate 16 FiO2 100.0 Tidal Volume 300 PEEP 10 Sodium 136.0 Potassium Chloride 109.0 H Carbon Dioxide Anion Gap BUN Creatinine Est GFR ( Amer) Est GFR (Non-Af Amer) POC Glucose (mg/dL) 162 H 159 H Random Glucose Lactic Acid Calcium Phosphorus Magnesium Total Bilirubin AST ALT Alkaline Phosphatase Total Protein Albumin Globulin Albumin/Globulin Ratio Lipase Arterial Blood Potassium 4.6 Venous Blood Potassium Blood Type Antibody Screen Crossmatch BBK History Checked 01/04/18 01/04/18 01/04/18 17:52 18:59 18:59 WBC 10.4 D RBC 2.58 L Hgb 7.4 L Hct 21.4 L MCV 82.9 MCH 28.7 MCHC 34.6 RDW 16.6 H Plt Count 28 L* Gran % Lymph % (Auto) [place] % (Auto) Eos % (Auto) Baso % (Auto) Gran # Lymph # (Auto) [place] # (Auto) Eos # (Auto) Baso # (Auto) PT INR APTT pCO2 pO2 HCO3 ABG pH ABG Total CO2 ABG O2 Saturation ABG O2 Content ABG Base Excess ABG Hemoglobin ABG Carboxyhemoglobin POC ABG HHb (Measured) ABG Methemoglobin ABG O2 Capacity ABG Potassium VBG pH VBG pCO2 VBG HCO3 VBG Total CO2 VBG O2 Sat (Calc) VBG Base Excess VBG Potassium Hgb O2 Saturation Glucose Lactate Mechanical Rate FiO2 Tidal Volume PEEP Sodium Potassium Chloride Carbon Dioxide Anion Gap BUN Creatinine Est GFR ( Amer) Est GFR (Non-Af Amer) POC Glucose (mg/dL) 128 H Random Glucose Lactic Acid 5.5 H* Calcium Phosphorus Magnesium Total Bilirubin AST ALT Alkaline Phosphatase Total Protein Albumin Globulin Albumin/Globulin Ratio Lipase Arterial Blood Potassium Venous Blood Potassium Blood Type Antibody Screen Crossmatch BBK History Checked 01/04/18 01/04/18 01/04/18 18:59 20:49 21:28 WBC RBC Hgb Hct MCV MCH MCHC RDW Plt Count Gran % Lymph % (Auto) [place] % (Auto) Eos % (Auto) Baso % (Auto) Gran # Lymph # (Auto) [place] # (Auto) Eos # (Auto) Baso # (Auto) PT 26.8 H INR 2.31 APTT pCO2 pO2 258 H HCO3 ABG pH ABG Total CO2 ABG O2 Saturation ABG O2 Content ABG Base Excess ABG Hemoglobin ABG Carboxyhemoglobin POC ABG HHb (Measured) ABG Methemoglobin ABG O2 Capacity ABG Potassium VBG pH 7.40 VBG pCO2 30.0 L VBG HCO3 18.6 L VBG Total CO2 19.5 L VBG O2 Sat (Calc) 100.1 H VBG Base Excess -5.0 L VBG Potassium 4.3 Hgb O2 Saturation Glucose 80 Lactate 4.6 H* Mechanical Rate FiO2 21.0 Tidal Volume PEEP Sodium 140 137.0 Potassium 4.0 Chloride 105 108.0 H Carbon Dioxide 16 L Anion Gap 23 H BUN 27 H Creatinine 1.3 H Est GFR ( Amer) 54 Est GFR (Non-Af Amer) 44 POC Glucose (mg/dL) Random Glucose 118 H Lactic Acid Calcium 6.6 L* Phosphorus Magnesium Total Bilirubin 4.0 H AST 182 H D ALT 196 H Alkaline Phosphatase 269 H Total Protein 4.2 L Albumin 2.3 L Globulin 1.9 Albumin/Globulin Ratio 1.2 Lipase Arterial Blood Potassium Venous Blood Potassium 4.3 Blood Type Antibody Screen Crossmatch BBK History Checked 01/04/18 01/05/18 01/05/18 22:05 00:05 00:50 WBC RBC Hgb Hct MCV MCH MCHC RDW Plt Count Gran % Lymph % (Auto) [place] % (Auto) Eos % (Auto) Baso % (Auto) Gran # Lymph # (Auto) [place] # (Auto) Eos # (Auto) Baso # (Auto) PT INR APTT pCO2 pO2 415 H HCO3 ABG pH ABG Total CO2 ABG O2 Saturation ABG O2 Content ABG Base Excess ABG Hemoglobin ABG Carboxyhemoglobin POC ABG HHb (Measured) ABG Methemoglobin ABG O2 Capacity ABG Potassium VBG pH 7.43 VBG pCO2 28.0 L VBG HCO3 18.6 L VBG Total CO2 19.5 L VBG O2 Sat (Calc) 100.6 H VBG Base Excess -4.4 L VBG Potassium 3.9 Hgb O2 Saturation Glucose 100 Lactate 3.6 H Mechanical Rate FiO2 21.0 Tidal Volume PEEP Sodium 136.0 Potassium Chloride 107.0 Carbon Dioxide Anion Gap BUN Creatinine Est GFR ( Amer) Est GFR (Non-Af Amer) POC Glucose (mg/dL) 80 92 Random Glucose Lactic Acid Calcium Phosphorus Magnesium Total Bilirubin AST ALT Alkaline Phosphatase Total Protein Albumin Globulin Albumin/Globulin Ratio Lipase Arterial Blood Potassium Venous Blood Potassium 3.9 Blood Type Antibody Screen Crossmatch BBK History Checked 01/05/18 01/05/18 01/05/18 02:21 05:25 05:30 WBC 8.5 RBC 2.28 L Hgb 6.5 L* Hct 18.5 L* MCV 81.1 MCH 28.5 MCHC 35.1 RDW 16.8 H Plt Count 22 L* Gran % 87.5 H Lymph % (Auto) 11.3 L [place] % (Auto) 1.2 Eos % (Auto) 0.0 L Baso % (Auto) 0.0 Gran # 7.40 H Lymph # (Auto) 1.0 L [place] # (Auto) 0.1 Eos # (Auto) 0.0 Baso # (Auto) 0.00 PT INR APTT pCO2 pO2 HCO3 ABG pH ABG Total CO2 ABG O2 Saturation ABG O2 Content ABG Base Excess ABG Hemoglobin ABG Carboxyhemoglobin POC ABG HHb (Measured) ABG Methemoglobin ABG O2 Capacity ABG Potassium VBG pH VBG pCO2 VBG HCO3 VBG Total CO2 VBG O2 Sat (Calc) VBG Base Excess VBG Potassium Hgb O2 Saturation Glucose Lactate Mechanical Rate FiO2 Tidal Volume PEEP Sodium Potassium Chloride Carbon Dioxide Anion Gap BUN Creatinine Est GFR ( Amer) Est GFR (Non-Af Amer) POC Glucose (mg/dL) 102 115 H Random Glucose Lactic Acid Calcium Phosphorus Magnesium Total Bilirubin AST ALT Alkaline Phosphatase Total Protein Albumin Globulin Albumin/Globulin Ratio Lipase Arterial Blood Potassium Venous Blood Potassium Blood Type Antibody Screen Crossmatch BBK History Checked 01/05/18 01/05/18 01/05/18 05:30 05:30 06:10 WBC RBC Hgb Hct MCV MCH MCHC RDW Plt Count Gran % Lymph % (Auto) [place] % (Auto) Eos % (Auto) Baso % (Auto) Gran # Lymph # (Auto) [place] # (Auto) Eos # (Auto) Baso # (Auto) PT 24.1 H INR 2.06 APTT 53.5 H pCO2 27 L pO2 306.0 H HCO3 17.9 L ABG pH 7.43 ABG Total CO2 18.7 L ABG O2 Saturation 100.5 H ABG O2 Content 8.3 L ABG Base Excess -6.0 L ABG Hemoglobin 5.4 L ABG Carboxyhemoglobin 1.4 POC ABG HHb (Measured) -0.5 L ABG Methemoglobin 1.3 ABG O2 Capacity 8.3 L ABG Potassium VBG pH VBG pCO2 VBG HCO3 VBG Total CO2 VBG O2 Sat (Calc) VBG Base Excess VBG Potassium Hgb O2 Saturation 97.8 Glucose Lactate Mechanical Rate FiO2 100.0 Tidal Volume PEEP Sodium 138 Potassium 3.9 Chloride 103 Carbon Dioxide 18 L Anion Gap 21 H BUN 31 H Creatinine 1.3 H Est GFR ( Amer) 54 Est GFR (Non-Af Amer) 44 POC Glucose (mg/dL) Random Glucose 112 H Lactic Acid Calcium 6.8 L* Phosphorus 3.3 Magnesium 1.6 L Total Bilirubin 4.1 H AST 259 H D ALT 244 H Alkaline Phosphatase 288 H Total Protein 4.5 L Albumin 2.5 L Globulin 2.0 Albumin/Globulin Ratio 1.3 Lipase Arterial Blood Potassium Venous Blood Potassium Blood Type Antibody Screen Crossmatch BBK History Checked Fingerstick Blood Sugar Results: 132 Review of Systems - Review of Systems Systems not reviewed;Unavailable: Intubated Assessment/Plan - Assessment and Plan (Free Text) Assessment: 42F with PMH developmental delay, presented to [facility] [place], initially admitted to ICU for HCAP, found to have gram negative bacteremia, progressed to ARDS, hypoxemic respiratory failure. Throughout day yesterday patient was less stable required insertion of central line and use of pressors. This AM patient is maintaining pressures on her own, afebrile. Required 2U pRBC yesterday; 1U Platelet ordered yesterday however not administered due to screen/crossmatch issues. Still anemic and thrombocytopenic today. Neuro: -GCS 7-8 -Intubated -Off of sedation -Ammonia level normal -CT Head on adm negative -Repeat CT Head read pending -seizure, aspiration and high fall risk precautions -EEG wnl -on keppra 500 IV Q12 -Neurology on board -monitor Cardio: -Off of pressors however patient was HD unstable yesterday and required Levophed + Vasopressin -Aim for MAP >65 -A-Line in place Lungs: -Hypoxemic respiratory acidosis 2/2 ARDS due to pneumonia -Remains intubated, on PRVC mode -BG: pH 7.43// PCO2 27// PO2 306// HCO3 17.9// SO2 97.8 this AM; -Will decrease the FiO2 accordingly utilizing ardsnet guidelines -CXR today improved from yesterday. -C/w Vanco and Zosyn -Continue with HOB elevation> 35 degrees, aspiration precautions. -Continue with protected lung ventilation strategies with TV of 3-6 ml/kg of IBW , plateau pressure less than 35, bronchodilators, keep oxygenation above 90%, pulm toileting Nephro: -Replace lytes, maintain euvolemia. Continue to monitor. -Avoid nephrotoxic agents -Cr 0.9 -monitor GI: -AST/ALT improving; Alk phos Improving -Will resume OGT feeds today -monitor Hepatic Workup: -LFTs worsening again; Tbili elevated; -Will get DBili and do bedside U/S -Pending hemolysis workup - LDH and Haptoglobin -Smooth muscle Ab negative -ANCA screen negative -Alpha1 Antitrypsin pending -Anti Mitochondrial Ab negative -No hepatic thrombosis on duplex -Patient is cachectic with BMI of 10, concern for chronic malnutrition -CT abd/chest shows severe edema in mesenteric fat, esophagitis and pelvis ascites. The swelling is consistent with severe malnutrition with low albumin -hepatitis panel is negative -CA-125 wnl -GI prophylaxis with protonix -GI on consult, Dr. Rizo Heme: -Anemia: -s/p 2u prbc 01/04 -h/h 6.5 today -Thrombocytopenia: -Possibly vancomycin induced vs hemolytic/destructive. Will DC vanc and switch to cefepime at this time -PLT 22 this AM -Still pending 1U PLT transfusion -Bleeding from central line controlled -Peripheral smear negative for schistocytes, as per discussion with Dr Lentz. -closely monitor : -TVUS unremarkable for ovaries -CA 125 normal Endo: Maintain euglycemia. -c-peptide wnl -TSH WNL ID: -HCAP PNA vs Aspiration PNA -Gram neg bacteremia -On cefepime -CDiff NEGATIVE -Repeat Blood Cx 06/06 12/28 NTD -Blood Cx 05/06 12/25 shows GNR -Urine Cx negative -HIV Panel negative -ID Following GI/DVT Ppx: Pepcid IVP, SCDs do not fit Patient was seen, examined, and discussed w/ attending physician Dr. Quinton Welch DO PGY1 - Internal Medicine Certified Orthoptist - Pager [phone] - Date & Time Date: 01/05/18 Time: 12:36 <Quinton Ruffin - Last Filed: 01/05/18 16:37> CCU Objective - Vital Signs / Intake & Output Intake and Output (Last 8hrs): Intake & Output 01/05/18 01/05/18 01/05/18 06:59 14:59 22:59 Intake Total 1600 Output Total 50 Balance 1550 Intake: IV 1600 D50 1000 Left Upper arm 350 albumin 150 keppra 100 Oral 0 Output: Urine 50 Urethral (Jimenez) 50 Stool 0 Other: # Bowel Movements 2 - Medications Active Medications: Active Medications Generic Name Dose Route Start Last Admin Trade Name Freq PRN Reason Stop Dose Admin Albumin Human 12.5 gm 01/02/18 16:00 01/05/18 15:55 Albumin Human 25% (12.5 Gm/50 Ml) IV Not Given Q4 NASH Bacitracin 1 gm 01/02/18 18:00 01/05/18 14:17 Bacitracin TOP 1 gm TID NASH Administration Dextrose 25 ml 01/03/18 00:48 01/04/18 04:31 Dextrose 50% Inj IVP 25 ml ONCE PRN Administration Hypoglycemia Famotidine 20 mg 01/05/18 10:45 01/05/18 12:17 Pepcid IVP 20 mg DAILY NASH Administration Levetiracetam 500 mg in 100 mls @ 460 mls/hr 12/27/17 07:57 01/05/18 09:42 Keppra 500mg Ivpb IV 460 mls/hr Q12 NASH Administration Dextrose 1,000 mls @ 100 mls/hr 01/03/18 07:15 01/05/18 05:21 Dextrose 5% In Water 1000 Ml IV 100 mls/hr .Q10H NASH Administration Fentanyl Citrate 1,000 mcg in 100 mls @ 2 mls/hr 01/03/18 17:03 01/04/18 07: 45 Fentanyl Citrate/Sodium Chloride 1 Mg/100 Ml IV 0 mcg/hr .Q24H PRN 0 mls/hr TITRATE PER MD ORDER Titration Protocol 20 MCG/HR Vasopressin 20 units/ Dextrose 101 mls @ 9.09 mls/hr 01/04/18 16:15 01/05/18 09:16 IV Not Given .[id number] NASH Protocol 0.03 U/MIN NOREPINEPHRINE BIT/0.9 % NACL 4 mg in 250 mls @ 15 mls/hr 01/04/18 15:47 06/22 16:56 Levophed 4 Mg/ 250 Ml Ns Premixed IV 20 mcg/min .[id number] PRN 75 mls/hr TITRATE PER MD ORDER Administration Protocol 4 MCG/MIN Midazolam 100 mg/100ml in NS 100 mg in 100 mls @ 1 mls/hr 01/04/18 17:17 06/22 18:57 Midazolam 100 Mg/100ml In Ns IV 1 mg/hr .Q24H PRN 1 mls/hr Agitation Administration Protocol 1 MG/HR Cefepime HCl 1 gm in 100 mls @ 100 mls/hr 01/05/18 10:00 01/05/18 09:43 Maxipime 1gm IVPB 01/14/18 10:01 100 mls/hr Q12 NASH Administration Protocol Insulin Human Regular 0 units 01/02/18 16:30 01/05/18 15:53 Humulin R Low SC Not Given ACHS NASH Protocol Levalbuterol HCl 1.25 mg 12/31/17 18:28 01/03/18 13:16 Xopenex IH 1.25 mg [id number] PRN Administration Shortness of Breath Potassium Phos/Sodium Phos 1 pkt 12/31/17 14:00 12/31/17 18:50 Neutra-Phos PO 1 pkt TID NASH Administration - Patient Studies Lab Studies: Microbiology Studies 01/04/18 15:00 C. difficile Antigen & Toxin A,B (M - Final Stool 01/03/18 09:00 Gram Stain - Final Trachasp Sputum Culture - Final NORMAL ORAL MAYURI 01/02/18 07:00 Blood Culture - Preliminary Blood NO GROWTH AFTER 3 DAYS 01/02/18 06:45 Blood Culture - Preliminary Blood NO GROWTH AFTER 3 DAYS Lab Studies 01/05/18 01/05/18 01/05/18 Range/Units 15:43 13:48 11:40 WBC (4.5-11.0) 10^3/ul RBC (3.5-6.1) 10^6/uL Hgb (12.0-16.0) g/dL Hct (36.0-48.0) % MCV (80.0-105.0) fl MCH (25.0-35.0) pg MCHC (31.0-37.0) g/dl RDW (11.5-14.5) % Plt Count (120.0-450.0) 10^3/uL Gran % (50.0-68.0) % Lymph % (Auto) (22.0-35.0) % [place] % (Auto) (1.0-6.0) % Eos % (Auto) (1.5-5.0) % Baso % (Auto) (0.0-3.0) % Gran # (1.4-6.5) Lymph # (Auto) (1.2-3.4) [place] # (Auto) (0.1-0.6) Eos # (Auto) (0.0-0.7) Baso # (Auto) (0.0-2.0) K/mm3 Platelet Evaluation (NORMAL) Retic Count (0.5-1.5) % Haptoglobin (30.0-200.0) mg/dL PT (9.4-12.5) SECONDS INR APTT (25.1-36.5) Seconds pCO2 (35-45) mm/Hg pO2 (30-55) mm/Hg HCO3 (21-28) mmol/L ABG pH (7.35-7.45) ABG Total CO2 (22-28) mmol.L ABG O2 Saturation (95-98) % ABG O2 Content (15-23) ML/dl ABG Base Excess (-2.0-3.0) mmol/L ABG Hemoglobin (11.7-17.4) g/dL ABG Carboxyhemoglobin (0.5-1.5) % POC ABG HHb (Measured) (0-5) % ABG Methemoglobin (0.0-3.0) % ABG O2 Capacity (16-24) mL/dl VBG pH (7.32-7.43) VBG pCO2 (40-60) VBG HCO3 (21-28) mmol/l VBG Total CO2 (22-28) mmol.L VBG O2 Sat (Calc) (40-65) % VBG Base Excess (0.0-2.0) mmol/L VBG Potassium (3.6-5.2) mmol/L Hgb O2 Saturation (95.0-98.0) % Glucose (65-105) mg/dl Lactate (0.7-2.1) mmol/L FiO2 % Sodium (132-148) mmol/L Potassium (3.6-5.0) mmol/L Chloride (98-107) mmol/L Carbon Dioxide (21-33) mmol/L Anion Gap (10-20) BUN (7-21) mg/dL Creatinine (0.7-1.2) mg/dl Est GFR ( Amer) Est GFR (Non-Af Amer) POC Glucose (mg/dL) 101 106 87 (65-110) mg/dL Random Glucose (70-110) mg/dL Lactic Acid (0.7-2.1) mmol/L Calcium (8.4-10.5) mg/dL Phosphorus (2.5-4.5) mg/dL Magnesium (1.7-2.2) mg/dL Total Bilirubin (0.2-1.3) mg/dL Direct Bilirubin (0.0-0.4) mg/dL AST (14-36) U/L ALT (7-56) U/L Alkaline Phosphatase (38-126) U/L Lactate Dehydrogenase (333-699) U/L Total Protein (5.8-8.3) g/dL Albumin (3.0-4.8) g/dL Globulin gm/dL Albumin/Globulin Ratio (1.1-1.8) Venous Blood Potassium (3.6-5.2) mmol/L Crossmatch 01/05/18 01/05/18 01/05/18 Range/Units 10:24 08:07 06:10 WBC (4.5-11.0) 10^3/ul RBC (3.5-6.1) 10^6/uL Hgb (12.0-16.0) g/dL Hct (36.0-48.0) % MCV (80.0-105.0) fl MCH (25.0-35.0) pg MCHC (31.0-37.0) g/dl RDW (11.5-14.5) % Plt Count (120.0-450.0) 10^3/uL Gran % (50.0-68.0) % Lymph % (Auto) (22.0-35.0) % [place] % (Auto) (1.0-6.0) % Eos % (Auto) (1.5-5.0) % Baso % (Auto) (0.0-3.0) % Gran # (1.4-6.5) Lymph # (Auto) (1.2-3.4) [place] # (Auto) (0.1-0.6) Eos # (Auto) (0.0-0.7) Baso # (Auto) (0.0-2.0) K/mm3 Platelet Evaluation (NORMAL) Retic Count (0.5-1.5) % Haptoglobin (30.0-200.0) mg/dL PT (9.4-12.5) SECONDS INR APTT (25.1-36.5) Seconds pCO2 27 L (35-45) mm/Hg pO2 306.0 H (30-55) mm/Hg HCO3 17.9 L (21-28) mmol/L ABG pH 7.43 (7.35-7.45) ABG Total CO2 18.7 L (22-28) mmol.L ABG O2 Saturation 100.5 H (95-98) % ABG O2 Content 8.3 L (15-23) ML/dl ABG Base Excess -6.0 L (-2.0-3.0) mmol/L ABG Hemoglobin 5.4 L (11.7-17.4) g/dL ABG Carboxyhemoglobin 1.4 (0.5-1.5) % POC ABG HHb (Measured) -0.5 L (0-5) % ABG Methemoglobin 1.3 (0.0-3.0) % ABG O2 Capacity 8.3 L (16-24) mL/dl VBG pH (7.32-7.43) VBG pCO2 (40-60) VBG HCO3 (21-28) mmol/l VBG Total CO2 (22-28) mmol.L VBG O2 Sat (Calc) (40-65) % VBG Base Excess (0.0-2.0) mmol/L VBG Potassium (3.6-5.2) mmol/L Hgb O2 Saturation 97.8 (95.0-98.0) % Glucose (65-105) mg/dl Lactate (0.7-2.1) mmol/L FiO2 100.0 % Sodium (132-148) mmol/L Potassium (3.6-5.0) mmol/L Chloride (98-107) mmol/L Carbon Dioxide (21-33) mmol/L Anion Gap (10-20) BUN (7-21) mg/dL Creatinine (0.7-1.2) mg/dl Est GFR ( Amer) Est GFR (Non-Af Amer) POC Glucose (mg/dL) 117 H 132 H (65-110) mg/dL Random Glucose (70-110) mg/dL Lactic Acid (0.7-2.1) mmol/L Calcium (8.4-10.5) mg/dL Phosphorus (2.5-4.5) mg/dL Magnesium (1.7-2.2) mg/dL Total Bilirubin (0.2-1.3) mg/dL Direct Bilirubin (0.0-0.4) mg/dL AST (14-36) U/L ALT (7-56) U/L Alkaline Phosphatase (38-126) U/L Lactate Dehydrogenase (333-699) U/L Total Protein (5.8-8.3) g/dL Albumin (3.0-4.8) g/dL Globulin gm/dL Albumin/Globulin Ratio (1.1-1.8) Venous Blood Potassium (3.6-5.2) mmol/L Crossmatch 01/05/18 01/05/18 01/05/18 Range/Units 06:00 06:00 06:00 WBC (4.5-11.0) 10^3/ul RBC (3.5-6.1) 10^6/uL Hgb (12.0-16.0) g/dL Hct (36.0-48.0) % MCV (80.0-105.0) fl MCH (25.0-35.0) pg MCHC (31.0-37.0) g/dl RDW (11.5-14.5) % Plt Count (120.0-450.0) 10^3/uL Gran % (50.0-68.0) % Lymph % (Auto) (22.0-35.0) % [place] % (Auto) (1.0-6.0) % Eos % (Auto) (1.5-5.0) % Baso % (Auto) (0.0-3.0) % Gran # (1.4-6.5) Lymph # (Auto) (1.2-3.4) [place] # (Auto) (0.1-0.6) Eos # (Auto) (0.0-0.7) Baso # (Auto) (0.0-2.0) K/mm3 Platelet Evaluation (NORMAL) Retic Count 0.58 (0.5-1.5) % Haptoglobin 69.4 (30.0-200.0) mg/dL PT (9.4-12.5) SECONDS INR APTT (25.1-36.5) Seconds pCO2 (35-45) mm/Hg pO2 (30-55) mm/Hg HCO3 (21-28) mmol/L ABG pH (7.35-7.45) ABG Total CO2 (22-28) mmol.L ABG O2 Saturation (95-98) % ABG O2 Content (15-23) ML/dl ABG Base Excess (-2.0-3.0) mmol/L ABG Hemoglobin (11.7-17.4) g/dL ABG Carboxyhemoglobin (0.5-1.5) % POC ABG HHb (Measured) (0-5) % ABG Methemoglobin (0.0-3.0) % ABG O2 Capacity (16-24) mL/dl VBG pH (7.32-7.43) VBG pCO2 (40-60) VBG HCO3 (21-28) mmol/l VBG Total CO2 (22-28) mmol.L VBG O2 Sat (Calc) (40-65) % VBG Base Excess (0.0-2.0) mmol/L VBG Potassium (3.6-5.2) mmol/L Hgb O2 Saturation (95.0-98.0) % Glucose (65-105) mg/dl Lactate (0.7-2.1) mmol/L FiO2 % Sodium (132-148) mmol/L Potassium (3.6-5.0) mmol/L Chloride (98-107) mmol/L Carbon Dioxide (21-33) mmol/L Anion Gap (10-20) BUN (7-21) mg/dL Creatinine (0.7-1.2) mg/dl Est GFR ( Amer) Est GFR (Non-Af Amer) POC Glucose (mg/dL) (65-110) mg/dL Random Glucose (70-110) mg/dL Lactic Acid (0.7-2.1) mmol/L Calcium (8.4-10.5) mg/dL Phosphorus (2.5-4.5) mg/dL Magnesium (1.7-2.2) mg/dL Total Bilirubin (0.2-1.3) mg/dL Direct Bilirubin (0.0-0.4) mg/dL AST (14-36) U/L ALT (7-56) U/L Alkaline Phosphatase (38-126) U/L Lactate Dehydrogenase 2725 H (333-699) U/L Total Protein (5.8-8.3) g/dL Albumin (3.0-4.8) g/dL Globulin gm/dL Albumin/Globulin Ratio (1.1-1.8) Venous Blood Potassium (3.6-5.2) mmol/L Crossmatch 01/05/18 01/05/18 01/05/18 Range/Units 05:30 05:30 05:30 WBC (4.5-11.0) 10^3/ul RBC (3.5-6.1) 10^6/uL Hgb (12.0-16.0) g/dL Hct (36.0-48.0) % MCV (80.0-105.0) fl MCH (25.0-35.0) pg MCHC (31.0-37.0) g/dl RDW (11.5-14.5) % Plt Count (120.0-450.0) 10^3/uL Gran % (50.0-68.0) % Lymph % (Auto) (22.0-35.0) % [place] % (Auto) (1.0-6.0) % Eos % (Auto) (1.5-5.0) % Baso % (Auto) (0.0-3.0) % Gran # (1.4-6.5) Lymph # (Auto) (1.2-3.4) [place] # (Auto) (0.1-0.6) Eos # (Auto) (0.0-0.7) Baso # (Auto) (0.0-2.0) K/mm3 Platelet Evaluation (NORMAL) Retic Count (0.5-1.5) % Haptoglobin (30.0-200.0) mg/dL PT 24.1 H (9.4-12.5) SECONDS INR 2.06 APTT 53.5 H (25.1-36.5) Seconds pCO2 (35-45) mm/Hg pO2 (30-55) mm/Hg HCO3 (21-28) mmol/L ABG pH (7.35-7.45) ABG Total CO2 (22-28) mmol.L ABG O2 Saturation (95-98) % ABG O2 Content (15-23) ML/dl ABG Base Excess (-2.0-3.0) mmol/L ABG Hemoglobin (11.7-17.4) g/dL ABG Carboxyhemoglobin (0.5-1.5) % POC ABG HHb (Measured) (0-5) % ABG Methemoglobin (0.0-3.0) % ABG O2 Capacity (16-24) mL/dl VBG pH (7.32-7.43) VBG pCO2 (40-60) VBG HCO3 (21-28) mmol/l VBG Total CO2 (22-28) mmol.L VBG O2 Sat (Calc) (40-65) % VBG Base Excess (0.0-2.0) mmol/L VBG Potassium (3.6-5.2) mmol/L Hgb O2 Saturation (95.0-98.0) % Glucose (65-105) mg/dl Lactate (0.7-2.1) mmol/L FiO2 % Sodium 138 (132-148) mmol/L Potassium 3.9 (3.6-5.0) mmol/L Chloride 103 (98-107) mmol/L Carbon Dioxide 18 L (21-33) mmol/L Anion Gap 21 H (10-20) BUN 31 H (7-21) mg/dL Creatinine 1.3 H (0.7-1.2) mg/dl Est GFR ( Amer) 54 Est GFR (Non-Af Amer) 44 POC Glucose (mg/dL) (65-110) mg/dL Random Glucose 112 H (70-110) mg/dL Lactic Acid (0.7-2.1) mmol/L Calcium 6.8 L* (8.4-10.5) mg/dL Phosphorus 3.3 (2.5-4.5) mg/dL Magnesium 1.6 L (1.7-2.2) mg/dL Total Bilirubin 4.1 H (0.2-1.3) mg/dL Direct Bilirubin 3.0 H (0.0-0.4) mg/dL AST 259 H D (14-36) U/L ALT 244 H (7-56) U/L Alkaline Phosphatase 288 H (38-126) U/L Lactate Dehydrogenase (333-699) U/L Total Protein 4.5 L (5.8-8.3) g/dL Albumin 2.5 L (3.0-4.8) g/dL Globulin 2.0 gm/dL Albumin/Globulin Ratio 1.3 (1.1-1.8) Venous Blood Potassium (3.6-5.2) mmol/L Crossmatch 01/05/18 01/05/18 01/05/18 Range/Units 05:30 05:25 02:21 WBC 8.5 (4.5-11.0) 10^3/ul RBC 2.28 L (3.5-6.1) 10^6/uL Hgb 6.5 L* (12.0-16.0) g/dL Hct 18.5 L* (36.0-48.0) % MCV 81.1 (80.0-105.0) fl MCH 28.5 (25.0-35.0) pg MCHC 35.1 (31.0-37.0) g/dl RDW 16.8 H (11.5-14.5) % Plt Count 22 L* (120.0-450.0) 10^3/uL Gran % 87.5 H (50.0-68.0) % Lymph % (Auto) 11.3 L (22.0-35.0) % [place] % (Auto) 1.2 (1.0-6.0) % Eos % (Auto) 0.0 L (1.5-5.0) % Baso % (Auto) 0.0 (0.0-3.0) % Gran # 7.40 H (1.4-6.5) Lymph # (Auto) 1.0 L (1.2-3.4) [place] # (Auto) 0.1 (0.1-0.6) Eos # (Auto) 0.0 (0.0-0.7) Baso # (Auto) 0.00 (0.0-2.0) K/mm3 Platelet Evaluation Low (NORMAL) Retic Count (0.5-1.5) % Haptoglobin (30.0-200.0) mg/dL PT (9.4-12.5) SECONDS INR APTT (25.1-36.5) Seconds pCO2 (35-45) mm/Hg pO2 (30-55) mm/Hg HCO3 (21-28) mmol/L ABG pH (7.35-7.45) ABG Total CO2 (22-28) mmol.L ABG O2 Saturation (95-98) % ABG O2 Content (15-23) ML/dl ABG Base Excess (-2.0-3.0) mmol/L ABG Hemoglobin (11.7-17.4) g/dL ABG Carboxyhemoglobin (0.5-1.5) % POC ABG HHb (Measured) (0-5) % ABG Methemoglobin (0.0-3.0) % ABG O2 Capacity (16-24) mL/dl VBG pH (7.32-7.43) VBG pCO2 (40-60) VBG HCO3 (21-28) mmol/l VBG Total CO2 (22-28) mmol.L VBG O2 Sat (Calc) (40-65) % VBG Base Excess (0.0-2.0) mmol/L VBG Potassium (3.6-5.2) mmol/L Hgb O2 Saturation (95.0-98.0) % Glucose (65-105) mg/dl Lactate (0.7-2.1) mmol/L FiO2 % Sodium (132-148) mmol/L Potassium (3.6-5.0) mmol/L Chloride (98-107) mmol/L Carbon Dioxide (21-33) mmol/L Anion Gap (10-20) BUN (7-21) mg/dL Creatinine (0.7-1.2) mg/dl Est GFR ( Amer) Est GFR (Non-Af Amer) POC Glucose (mg/dL) 115 H 102 (65-110) mg/dL Random Glucose (70-110) mg/dL Lactic Acid (0.7-2.1) mmol/L Calcium (8.4-10.5) mg/dL Phosphorus (2.5-4.5) mg/dL Magnesium (1.7-2.2) mg/dL Total Bilirubin (0.2-1.3) mg/dL Direct Bilirubin (0.0-0.4) mg/dL AST (14-36) U/L ALT (7-56) U/L Alkaline Phosphatase (38-126) U/L Lactate Dehydrogenase (333-699) U/L Total Protein (5.8-8.3) g/dL Albumin (3.0-4.8) g/dL Globulin gm/dL Albumin/Globulin Ratio (1.1-1.8) Venous Blood Potassium (3.6-5.2) mmol/L Crossmatch 01/05/18 01/05/18 01/04/18 Range/Units 00:50 00:05 22:05 WBC (4.5-11.0) 10^3/ul RBC (3.5-6.1) 10^6/uL Hgb (12.0-16.0) g/dL Hct (36.0-48.0) % MCV (80.0-105.0) fl MCH (25.0-35.0) pg MCHC (31.0-37.0) g/dl RDW (11.5-14.5) % Plt Count (120.0-450.0) 10^3/uL Gran % (50.0-68.0) % Lymph % (Auto) (22.0-35.0) % [place] % (Auto) (1.0-6.0) % Eos % (Auto) (1.5-5.0) % Baso % (Auto) (0.0-3.0) % Gran # (1.4-6.5) Lymph # (Auto) (1.2-3.4) [place] # (Auto) (0.1-0.6) Eos # (Auto) (0.0-0.7) Baso # (Auto) (0.0-2.0) K/mm3 Platelet Evaluation (NORMAL) Retic Count (0.5-1.5) % Haptoglobin (30.0-200.0) mg/dL PT (9.4-12.5) SECONDS INR APTT (25.1-36.5) Seconds pCO2 (35-45) mm/Hg pO2 415 H (30-55) mm/Hg HCO3 (21-28) mmol/L ABG pH (7.35-7.45) ABG Total CO2 (22-28) mmol.L ABG O2 Saturation (95-98) % ABG O2 Content (15-23) ML/dl ABG Base Excess (-2.0-3.0) mmol/L ABG Hemoglobin (11.7-17.4) g/dL ABG Carboxyhemoglobin (0.5-1.5) % POC ABG HHb (Measured) (0-5) % ABG Methemoglobin (0.0-3.0) % ABG O2 Capacity (16-24) mL/dl VBG pH 7.43 (7.32-7.43) VBG pCO2 28.0 L (40-60) VBG HCO3 18.6 L (21-28) mmol/l VBG Total CO2 19.5 L (22-28) mmol.L VBG O2 Sat (Calc) 100.6 H (40-65) % VBG Base Excess -4.4 L (0.0-2.0) mmol/L VBG Potassium 3.9 (3.6-5.2) mmol/L Hgb O2 Saturation (95.0-98.0) % Glucose 100 (65-105) mg/dl Lactate 3.6 H (0.7-2.1) mmol/L FiO2 21.0 % Sodium 136.0 (132-148) mmol/L Potassium (3.6-5.0) mmol/L Chloride 107.0 (98-107) mmol/L Carbon Dioxide (21-33) mmol/L Anion Gap (10-20) BUN (7-21) mg/dL Creatinine (0.7-1.2) mg/dl Est GFR ( Amer) Est GFR (Non-Af Amer) POC Glucose (mg/dL) 92 80 (65-110) mg/dL Random Glucose (70-110) mg/dL Lactic Acid (0.7-2.1) mmol/L Calcium (8.4-10.5) mg/dL Phosphorus (2.5-4.5) mg/dL Magnesium (1.7-2.2) mg/dL Total Bilirubin (0.2-1.3) mg/dL Direct Bilirubin (0.0-0.4) mg/dL AST (14-36) U/L ALT (7-56) U/L Alkaline Phosphatase (38-126) U/L Lactate Dehydrogenase (333-699) U/L Total Protein (5.8-8.3) g/dL Albumin (3.0-4.8) g/dL Globulin gm/dL Albumin/Globulin Ratio (1.1-1.8) Venous Blood Potassium 3.9 (3.6-5.2) mmol/L Crossmatch 01/04/18 01/04/18 01/04/18 Range/Units 21:28 20:49 18:59 WBC (4.5-11.0) 10^3/ul RBC (3.5-6.1) 10^6/uL Hgb (12.0-16.0) g/dL Hct (36.0-48.0) % MCV (80.0-105.0) fl MCH (25.0-35.0) pg MCHC (31.0-37.0) g/dl RDW (11.5-14.5) % Plt Count (120.0-450.0) 10^3/uL Gran % (50.0-68.0) % Lymph % (Auto) (22.0-35.0) % [place] % (Auto) (1.0-6.0) % Eos % (Auto) (1.5-5.0) % Baso % (Auto) (0.0-3.0) % Gran # (1.4-6.5) Lymph # (Auto) (1.2-3.4) [place] # (Auto) (0.1-0.6) Eos # (Auto) (0.0-0.7) Baso # (Auto) (0.0-2.0) K/mm3 Platelet Evaluation (NORMAL) Retic Count (0.5-1.5) % Haptoglobin (30.0-200.0) mg/dL PT 26.8 H (9.4-12.5) SECONDS INR 2.31 APTT (25.1-36.5) Seconds pCO2 (35-45) mm/Hg pO2 258 H (30-55) mm/Hg HCO3 (21-28) mmol/L ABG pH (7.35-7.45) ABG Total CO2 (22-28) mmol.L ABG O2 Saturation (95-98) % ABG O2 Content (15-23) ML/dl ABG Base Excess (-2.0-3.0) mmol/L ABG Hemoglobin (11.7-17.4) g/dL ABG Carboxyhemoglobin (0.5-1.5) % POC ABG HHb (Measured) (0-5) % ABG Methemoglobin (0.0-3.0) % ABG O2 Capacity (16-24) mL/dl VBG pH 7.40 (7.32-7.43) VBG pCO2 30.0 L (40-60) VBG HCO3 18.6 L (21-28) mmol/l VBG Total CO2 19.5 L (22-28) mmol.L VBG O2 Sat (Calc) 100.1 H (40-65) % VBG Base Excess -5.0 L (0.0-2.0) mmol/L VBG Potassium 4.3 (3.6-5.2) mmol/L Hgb O2 Saturation (95.0-98.0) % Glucose 80 (65-105) mg/dl Lactate 4.6 H* (0.7-2.1) mmol/L FiO2 21.0 % Sodium 137.0 140 (132-148) mmol/L Potassium 4.0 (3.6-5.0) mmol/L Chloride 108.0 H 105 (98-107) mmol/L Carbon Dioxide 16 L (21-33) mmol/L Anion Gap 23 H (10-20) BUN 27 H (7-21) mg/dL Creatinine 1.3 H (0.7-1.2) mg/dl Est GFR ( Amer) 54 Est GFR (Non-Af Amer) 44 POC Glucose (mg/dL) (65-110) mg/dL Random Glucose 118 H (70-110) mg/dL Lactic Acid (0.7-2.1) mmol/L Calcium 6.6 L* (8.4-10.5) mg/dL Phosphorus (2.5-4.5) mg/dL Magnesium (1.7-2.2) mg/dL Total Bilirubin 4.0 H (0.2-1.3) mg/dL Direct Bilirubin (0.0-0.4) mg/dL AST 182 H D (14-36) U/L ALT 196 H (7-56) U/L Alkaline Phosphatase 269 H (38-126) U/L Lactate Dehydrogenase (333-699) U/L Total Protein 4.2 L (5.8-8.3) g/dL Albumin 2.3 L (3.0-4.8) g/dL Globulin 1.9 gm/dL Albumin/Globulin Ratio 1.2 (1.1-1.8) Venous Blood Potassium 4.3 (3.6-5.2) mmol/L Crossmatch 01/04/18 01/04/18 01/04/18 Range/Units 18:59 18:59 17:52 WBC 10.4 D (4.5-11.0) 10^3/ul RBC 2.58 L (3.5-6.1) 10^6/uL Hgb 7.4 L (12.0-16.0) g/dL Hct 21.4 L (36.0-48.0) % MCV 82.9 (80.0-105.0) fl MCH 28.7 (25.0-35.0) pg MCHC 34.6 (31.0-37.0) g/dl RDW 16.6 H (11.5-14.5) % Plt Count 28 L* (120.0-450.0) 10^3/uL Gran % (50.0-68.0) % Lymph % (Auto) (22.0-35.0) % [place] % (Auto) (1.0-6.0) % Eos % (Auto) (1.5-5.0) % Baso % (Auto) (0.0-3.0) % Gran # (1.4-6.5) Lymph # (Auto) (1.2-3.4) [place] # (Auto) (0.1-0.6) Eos # (Auto) (0.0-0.7) Baso # (Auto) (0.0-2.0) K/mm3 Platelet Evaluation (NORMAL) Retic Count (0.5-1.5) % Haptoglobin (30.0-200.0) mg/dL PT (9.4-12.5) SECONDS INR APTT (25.1-36.5) Seconds pCO2 (35-45) mm/Hg pO2 (30-55) mm/Hg HCO3 (21-28) mmol/L ABG pH (7.35-7.45) ABG Total CO2 (22-28) mmol.L ABG O2 Saturation (95-98) % ABG O2 Content (15-23) ML/dl ABG Base Excess (-2.0-3.0) mmol/L ABG Hemoglobin (11.7-17.4) g/dL ABG Carboxyhemoglobin (0.5-1.5) % POC ABG HHb (Measured) (0-5) % ABG Methemoglobin (0.0-3.0) % ABG O2 Capacity (16-24) mL/dl VBG pH (7.32-7.43) VBG pCO2 (40-60) VBG HCO3 (21-28) mmol/l VBG Total CO2 (22-28) mmol.L VBG O2 Sat (Calc) (40-65) % VBG Base Excess (0.0-2.0) mmol/L VBG Potassium (3.6-5.2) mmol/L Hgb O2 Saturation (95.0-98.0) % Glucose (65-105) mg/dl Lactate (0.7-2.1) mmol/L FiO2 % Sodium (132-148) mmol/L Potassium (3.6-5.0) mmol/L Chloride (98-107) mmol/L Carbon Dioxide (21-33) mmol/L Anion Gap (10-20) BUN (7-21) mg/dL Creatinine (0.7-1.2) mg/dl Est GFR ( Amer) Est GFR (Non-Af Amer) POC Glucose (mg/dL) 128 H (65-110) mg/dL Random Glucose (70-110) mg/dL Lactic Acid 5.5 H* (0.7-2.1) mmol/L Calcium (8.4-10.5) mg/dL Phosphorus (2.5-4.5) mg/dL Magnesium (1.7-2.2) mg/dL Total Bilirubin (0.2-1.3) mg/dL Direct Bilirubin (0.0-0.4) mg/dL AST (14-36) U/L ALT (7-56) U/L Alkaline Phosphatase (38-126) U/L Lactate Dehydrogenase (333-699) U/L Total Protein (5.8-8.3) g/dL Albumin (3.0-4.8) g/dL Globulin gm/dL Albumin/Globulin Ratio (1.1-1.8) Venous Blood Potassium (3.6-5.2) mmol/L Crossmatch 01/04/18 01/04/18 01/04/18 Range/Units 13:49 11:49 11:00 WBC (4.5-11.0) 10^3/ul RBC (3.5-6.1) 10^6/uL Hgb (12.0-16.0) g/dL Hct (36.0-48.0) % MCV (80.0-105.0) fl MCH (25.0-35.0) pg MCHC (31.0-37.0) g/dl RDW (11.5-14.5) % Plt Count (120.0-450.0) 10^3/uL Gran % (50.0-68.0) % Lymph % (Auto) (22.0-35.0) % [place] % (Auto) (1.0-6.0) % Eos % (Auto) (1.5-5.0) % Baso % (Auto) (0.0-3.0) % Gran # (1.4-6.5) Lymph # (Auto) (1.2-3.4) [place] # (Auto) (0.1-0.6) Eos # (Auto) (0.0-0.7) Baso # (Auto) (0.0-2.0) K/mm3 Platelet Evaluation (NORMAL) Retic Count (0.5-1.5) % Haptoglobin (30.0-200.0) mg/dL PT (9.4-12.5) SECONDS INR APTT (25.1-36.5) Seconds pCO2 (35-45) mm/Hg pO2 (30-55) mm/Hg HCO3 (21-28) mmol/L ABG pH (7.35-7.45) ABG Total CO2 (22-28) mmol.L ABG O2 Saturation (95-98) % ABG O2 Content (15-23) ML/dl ABG Base Excess (-2.0-3.0) mmol/L ABG Hemoglobin (11.7-17.4) g/dL ABG Carboxyhemoglobin (0.5-1.5) % POC ABG HHb (Measured) (0-5) % ABG Methemoglobin (0.0-3.0) % ABG O2 Capacity (16-24) mL/dl VBG pH (7.32-7.43) VBG pCO2 (40-60) VBG HCO3 (21-28) mmol/l VBG Total CO2 (22-28) mmol.L VBG O2 Sat (Calc) (40-65) % VBG Base Excess (0.0-2.0) mmol/L VBG Potassium (3.6-5.2) mmol/L Hgb O2 Saturation (95.0-98.0) % Glucose (65-105) mg/dl Lactate (0.7-2.1) mmol/L FiO2 % Sodium (132-148) mmol/L Potassium (3.6-5.0) mmol/L Chloride (98-107) mmol/L Carbon Dioxide (21-33) mmol/L Anion Gap (10-20) BUN (7-21) mg/dL Creatinine (0.7-1.2) mg/dl Est GFR ( Amer) Est GFR (Non-Af Amer) POC Glucose (mg/dL) 159 H 162 H (65-110) mg/dL Random Glucose (70-110) mg/dL Lactic Acid (0.7-2.1) mmol/L Calcium (8.4-10.5) mg/dL Phosphorus (2.5-4.5) mg/dL Magnesium (1.7-2.2) mg/dL Total Bilirubin (0.2-1.3) mg/dL Direct Bilirubin (0.0-0.4) mg/dL AST (14-36) U/L ALT (7-56) U/L Alkaline Phosphatase (38-126) U/L Lactate Dehydrogenase (333-699) U/L Total Protein (5.8-8.3) g/dL Albumin (3.0-4.8) g/dL Globulin gm/dL Albumin/Globulin Ratio (1.1-1.8) Venous Blood Potassium (3.6-5.2) mmol/L Crossmatch See Detail Laboratory Results - last 24 hr 01/04/18 01/04/18 01/04/18 11:00 11:49 13:49 WBC RBC Hgb Hct MCV MCH MCHC RDW Plt Count Gran % Lymph % (Auto) [place] % (Auto) Eos % (Auto) Baso % (Auto) Gran # Lymph # (Auto) [place] # (Auto) Eos # (Auto) Baso # (Auto) Platelet Evaluation Retic Count Haptoglobin PT INR APTT pCO2 pO2 HCO3 ABG pH ABG Total CO2 ABG O2 Saturation ABG O2 Content ABG Base Excess ABG Hemoglobin ABG Carboxyhemoglobin POC ABG HHb (Measured) ABG Methemoglobin ABG O2 Capacity VBG pH VBG pCO2 VBG HCO3 VBG Total CO2 VBG O2 Sat (Calc) VBG Base Excess VBG Potassium Hgb O2 Saturation Glucose Lactate FiO2 Sodium Potassium Chloride Carbon Dioxide Anion Gap BUN Creatinine Est GFR ( Amer) Est GFR (Non-Af Amer) POC Glucose (mg/dL) 162 H 159 H Random Glucose Lactic Acid Calcium Phosphorus Magnesium Total Bilirubin Direct Bilirubin AST ALT Alkaline Phosphatase Lactate Dehydrogenase Total Protein Albumin Globulin Albumin/Globulin Ratio Venous Blood Potassium Crossmatch See Detail 01/04/18 01/04/18 01/04/18 17:52 18:59 18:59 WBC 10.4 D RBC 2.58 L Hgb 7.4 L Hct 21.4 L MCV 82.9 MCH 28.7 MCHC 34.6 RDW 16.6 H Plt Count 28 L* Gran % Lymph % (Auto) [place] % (Auto) Eos % (Auto) Baso % (Auto) Gran # Lymph # (Auto) [place] # (Auto) Eos # (Auto) Baso # (Auto) Platelet Evaluation Retic Count Haptoglobin PT INR APTT pCO2 pO2 HCO3 ABG pH ABG Total CO2 ABG O2 Saturation ABG O2 Content ABG Base Excess ABG Hemoglobin ABG Carboxyhemoglobin POC ABG HHb (Measured) ABG Methemoglobin ABG O2 Capacity VBG pH VBG pCO2 VBG HCO3 VBG Total CO2 VBG O2 Sat (Calc) VBG Base Excess VBG Potassium Hgb O2 Saturation Glucose Lactate FiO2 Sodium Potassium Chloride Carbon Dioxide Anion Gap BUN Creatinine Est GFR ( Amer) Est GFR (Non-Af Amer) POC Glucose (mg/dL) 128 H Random Glucose Lactic Acid 5.5 H* Calcium Phosphorus Magnesium Total Bilirubin Direct Bilirubin AST ALT Alkaline Phosphatase Lactate Dehydrogenase Total Protein Albumin Globulin Albumin/Globulin Ratio Venous Blood Potassium Crossmatch 01/04/18 01/04/18 01/04/18 18:59 20:49 21:28 WBC RBC Hgb Hct MCV MCH MCHC RDW Plt Count Gran % Lymph % (Auto) [place] % (Auto) Eos % (Auto) Baso % (Auto) Gran # Lymph # (Auto) [place] # (Auto) Eos # (Auto) Baso # (Auto) Platelet Evaluation Retic Count Haptoglobin PT 26.8 H INR 2.31 APTT pCO2 pO2 258 H HCO3 ABG pH ABG Total CO2 ABG O2 Saturation ABG O2 Content ABG Base Excess ABG Hemoglobin ABG Carboxyhemoglobin POC ABG HHb (Measured) ABG Methemoglobin ABG O2 Capacity VBG pH 7.40 VBG pCO2 30.0 L VBG HCO3 18.6 L VBG Total CO2 19.5 L VBG O2 Sat (Calc) 100.1 H VBG Base Excess -5.0 L VBG Potassium 4.3 Hgb O2 Saturation Glucose 80 Lactate 4.6 H* FiO2 21.0 Sodium 140 137.0 Potassium 4.0 Chloride 105 108.0 H Carbon Dioxide 16 L Anion Gap 23 H BUN 27 H Creatinine 1.3 H Est GFR ( Amer) 54 Est GFR (Non-Af Amer) 44 POC Glucose (mg/dL) Random Glucose 118 H Lactic Acid Calcium 6.6 L* Phosphorus Magnesium Total Bilirubin 4.0 H Direct Bilirubin AST 182 H D ALT 196 H Alkaline Phosphatase 269 H Lactate Dehydrogenase Total Protein 4.2 L Albumin 2.3 L Globulin 1.9 Albumin/Globulin Ratio 1.2 Venous Blood Potassium 4.3 Crossmatch 01/04/18 01/05/18 01/05/18 22:05 00:05 00:50 WBC RBC Hgb Hct MCV MCH MCHC RDW Plt Count Gran % Lymph % (Auto) [place] % (Auto) Eos % (Auto) Baso % (Auto) Gran # Lymph # (Auto) [place] # (Auto) Eos # (Auto) Baso # (Auto) Platelet Evaluation Retic Count Haptoglobin PT INR APTT pCO2 pO2 415 H HCO3 ABG pH ABG Total CO2 ABG O2 Saturation ABG O2 Content ABG Base Excess ABG Hemoglobin ABG Carboxyhemoglobin POC ABG HHb (Measured) ABG Methemoglobin ABG O2 Capacity VBG pH 7.43 VBG pCO2 28.0 L VBG HCO3 18.6 L VBG Total CO2 19.5 L VBG O2 Sat (Calc) 100.6 H VBG Base Excess -4.4 L VBG Potassium 3.9 Hgb O2 Saturation Glucose 100 Lactate 3.6 H FiO2 21.0 Sodium 136.0 Potassium Chloride 107.0 Carbon Dioxide Anion Gap BUN Creatinine Est GFR ( Amer) Est GFR (Non-Af Amer) POC Glucose (mg/dL) 80 92 Random Glucose Lactic Acid Calcium Phosphorus Magnesium Total Bilirubin Direct Bilirubin AST ALT Alkaline Phosphatase Lactate Dehydrogenase Total Protein Albumin Globulin Albumin/Globulin Ratio Venous Blood Potassium 3.9 Crossmatch 01/05/18 01/05/18 01/05/18 02:21 05:25 05:30 WBC 8.5 RBC 2.28 L Hgb 6.5 L* Hct 18.5 L* MCV 81.1 MCH 28.5 MCHC 35.1 RDW 16.8 H Plt Count 22 L* Gran % 87.5 H Lymph % (Auto) 11.3 L [place] % (Auto) 1.2 Eos % (Auto) 0.0 L Baso % (Auto) 0.0 Gran # 7.40 H Lymph # (Auto) 1.0 L [place] # (Auto) 0.1 Eos # (Auto) 0.0 Baso # (Auto) 0.00 Platelet Evaluation Low Retic Count Haptoglobin PT INR APTT pCO2 pO2 HCO3 ABG pH ABG Total CO2 ABG O2 Saturation ABG O2 Content ABG Base Excess ABG Hemoglobin ABG Carboxyhemoglobin POC ABG HHb (Measured) ABG Methemoglobin ABG O2 Capacity VBG pH VBG pCO2 VBG HCO3 VBG Total CO2 VBG O2 Sat (Calc) VBG Base Excess VBG Potassium Hgb O2 Saturation Glucose Lactate FiO2 Sodium Potassium Chloride Carbon Dioxide Anion Gap BUN Creatinine Est GFR ( Amer) Est GFR (Non-Af Amer) POC Glucose (mg/dL) 102 115 H Random Glucose Lactic Acid Calcium Phosphorus Magnesium Total Bilirubin Direct Bilirubin AST ALT Alkaline Phosphatase Lactate Dehydrogenase Total Protein Albumin Globulin Albumin/Globulin Ratio Venous Blood Potassium Crossmatch 01/05/18 01/05/18 01/05/18 05:30 05:30 05:30 WBC RBC Hgb Hct MCV MCH MCHC RDW Plt Count Gran % Lymph % (Auto) [place] % (Auto) Eos % (Auto) Baso % (Auto) Gran # Lymph # (Auto) [place] # (Auto) Eos # (Auto) Baso # (Auto) Platelet Evaluation Retic Count Haptoglobin PT 24.1 H INR 2.06 APTT 53.5 H pCO2 pO2 HCO3 ABG pH ABG Total CO2 ABG O2 Saturation ABG O2 Content ABG Base Excess ABG Hemoglobin ABG Carboxyhemoglobin POC ABG HHb (Measured) ABG Methemoglobin ABG O2 Capacity VBG pH VBG pCO2 VBG HCO3 VBG Total CO2 VBG O2 Sat (Calc) VBG Base Excess VBG Potassium Hgb O2 Saturation Glucose Lactate FiO2 Sodium 138 Potassium 3.9 Chloride 103 Carbon Dioxide 18 L Anion Gap 21 H BUN 31 H Creatinine 1.3 H Est GFR ( Amer) 54 Est GFR (Non-Af Amer) 44 POC Glucose (mg/dL) Random Glucose 112 H Lactic Acid Calcium 6.8 L* Phosphorus 3.3 Magnesium 1.6 L Total Bilirubin 4.1 H Direct Bilirubin 3.0 H AST 259 H D ALT 244 H Alkaline Phosphatase 288 H Lactate Dehydrogenase Total Protein 4.5 L Albumin 2.5 L Globulin 2.0 Albumin/Globulin Ratio 1.3 Venous Blood Potassium Crossmatch 01/05/18 01/05/18 01/05/18 06:00 06:00 06:00 WBC RBC Hgb Hct MCV MCH MCHC RDW Plt Count Gran % Lymph % (Auto) [place] % (Auto) Eos % (Auto) Baso % (Auto) Gran # Lymph # (Auto) [place] # (Auto) Eos # (Auto) Baso # (Auto) Platelet Evaluation Retic Count 0.58 Haptoglobin 69.4 PT INR APTT pCO2 pO2 HCO3 ABG pH ABG Total CO2 ABG O2 Saturation ABG O2 Content ABG Base Excess ABG Hemoglobin ABG Carboxyhemoglobin POC ABG HHb (Measured) ABG Methemoglobin ABG O2 Capacity VBG pH VBG pCO2 VBG HCO3 VBG Total CO2 VBG O2 Sat (Calc) VBG Base Excess VBG Potassium Hgb O2 Saturation Glucose Lactate FiO2 Sodium Potassium Chloride Carbon Dioxide Anion Gap BUN Creatinine Est GFR ( Amer) Est GFR (Non-Af Amer) POC Glucose (mg/dL) Random Glucose Lactic Acid Calcium Phosphorus Magnesium Total Bilirubin Direct Bilirubin AST ALT Alkaline Phosphatase Lactate Dehydrogenase 2725 H Total Protein Albumin Globulin Albumin/Globulin Ratio Venous Blood Potassium Crossmatch 01/05/18 01/05/18 01/05/18 06:10 08:07 10:24 WBC RBC Hgb Hct MCV MCH MCHC RDW Plt Count Gran % Lymph % (Auto) [place] % (Auto) Eos % (Auto) Baso % (Auto) Gran # Lymph # (Auto) [place] # (Auto) Eos # (Auto) Baso # (Auto) Platelet Evaluation Retic Count Haptoglobin PT INR APTT pCO2 27 L pO2 306.0 H HCO3 17.9 L ABG pH 7.43 ABG Total CO2 18.7 L ABG O2 Saturation 100.5 H ABG O2 Content 8.3 L ABG Base Excess -6.0 L ABG Hemoglobin 5.4 L ABG Carboxyhemoglobin 1.4 POC ABG HHb (Measured) -0.5 L ABG Methemoglobin 1.3 ABG O2 Capacity 8.3 L VBG pH VBG pCO2 VBG HCO3 VBG Total CO2 VBG O2 Sat (Calc) VBG Base Excess VBG Potassium Hgb O2 Saturation 97.8 Glucose Lactate FiO2 100.0 Sodium Potassium Chloride Carbon Dioxide Anion Gap BUN Creatinine Est GFR ( Amer) Est GFR (Non-Af Amer) POC Glucose (mg/dL) 132 H 117 H Random Glucose Lactic Acid Calcium Phosphorus Magnesium Total Bilirubin Direct Bilirubin AST ALT Alkaline Phosphatase Lactate Dehydrogenase Total Protein Albumin Globulin Albumin/Globulin Ratio Venous Blood Potassium Crossmatch 01/05/18 01/05/18 01/05/18 11:40 13:48 15:43 WBC RBC Hgb Hct MCV MCH MCHC RDW Plt Count Gran % Lymph % (Auto) [place] % (Auto) Eos % (Auto) Baso % (Auto) Gran # Lymph # (Auto) [place] # (Auto) Eos # (Auto) Baso # (Auto) Platelet Evaluation Retic Count Haptoglobin PT INR APTT pCO2 pO2 HCO3 ABG pH ABG Total CO2 ABG O2 Saturation ABG O2 Content ABG Base Excess ABG Hemoglobin ABG Carboxyhemoglobin POC ABG HHb (Measured) ABG Methemoglobin ABG O2 Capacity VBG pH VBG pCO2 VBG HCO3 VBG Total CO2 VBG O2 Sat (Calc) VBG Base Excess VBG Potassium Hgb O2 Saturation Glucose Lactate FiO2 Sodium Potassium Chloride Carbon Dioxide Anion Gap BUN Creatinine Est GFR ( Amer) Est GFR (Non-Af Amer) POC Glucose (mg/dL) 87 106 101 Random Glucose Lactic Acid Calcium Phosphorus Magnesium Total Bilirubin Direct Bilirubin AST ALT Alkaline Phosphatase Lactate Dehydrogenase Total Protein Albumin Globulin Albumin/Globulin Ratio Venous Blood Potassium Crossmatch Addendum Addendum: 01/05/18 16:36 ICU Attending Addendum: Patient seen and examined. Case reviewed on round with housestaff. Agree with resident note above with the following additions/exceptions: 42 with mental retardation admitted with a seizure like episode, hypothermia and hypoglycemia, bradycardia likely secondary to shock. Shock resolved and she was much improved until 12/31 when she went into resp distress/ARDS requiring intubation. Spoke to mother earlier this AM - Code status now DNR (see phys communication note) Pulm: Etiology of her ARDS is unclear. Infectious is likely suspect however cultures neg thus far. She is much improved on her oxygenation, lower fio2 to 60% and drop PEEP to 8; follow ARDS NET guidelines for PEEP/FiO2 adjustment Hem: HB and plat low No signs of blood loss. Iron studies show Iron 55 and Ferritin 182 which are not suggestive of iron def anemia. Reviewing her platlets and bilirubin - both were normal on admission. Plat dropped and Bili went up on 12/27-12/28. They both improved however got worse again as of 01/02-01/03. When tracking her meds, the only medication changes that have the same patter is vancomycin. Both time vanc was started 12/27 and 01/02 her plat dropped and bili went up. When it was stopped previously, her numbers improved. 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 It is a known side effect although it is rare based on limited case reports. -d/w ID who will d/c vanc HB 6.5 today will need 1 unit PRBC and transufe if plat drop below 20k ID: [id number] empiric coverage, cultures neg thus far. Will discuss de-escalating abx. WBC less which is encouraging Lac elevated likely from sepsis repeat lac Neuro - f/u CT Head today - too unstable yest to go for radiology cont keppra for secondary seziure ppx sedation with versed GI: ok to feed, monitor stool output, guard for refeeding syndrome LFTs bumped lp likely from shock yesteray cont albumin SCD for DVT ppx Pepcid for GI ppx Summary: -Transfuse 1 unit PRBC and f/u CBC -Transfuse plat if < 20k -FFP for elevated INR -f.u head ct -repeat bili, chem, lfts, INR -f/u C Diff -begin feeding - Guard TLC - placed yesterday but due to bleeding/low plat so I was unable to suture it in place, I did not pull it back because my fear was that it would bleed again, with her HB and PLat dropping she cannot afford any more blood loss ; hold off on using TLC until we pul it back DNR Rest of care as noted above. Quinton Ruffin MD [employer] Operator Critical care time : 39 mins
--- NOTE | 2018-01-05 09:13 | PN ---
Copied To: Abdiaziz Sousa MD Attending MD: Abdiaziz Sousa MD DATE: 01/05/2018 SUBJECTIVE: The patient is in bed, in no acute distress, nontoxic. No fevers and chills. PHYSICAL EXAMINATION: VITAL SIGNS: On exam, temperature is 96, blood pressure is 159/90, respiratory rate of 18. HEENT: Examination of HEENT is unremarkable. NECK: Supple. LUNGS: Have decreased breath sounds. HEART: Normal S1, S2. ABDOMEN: Soft, nontender. LABORATORY DATA: Laboratory examination reveals a white count of 8.5, hemoglobin of 6 and platelets of 22,000. Chemistries reveals a BUN of 31, creatinine of 1.3. Urinalysis is noted. Serology is negative. Chest x-ray is pending. Dr. Ruffin's communication report is reviewed and appreciated. ASSESSMENT AND PLAN: A 42-year-old female, who is chronically ill, debilitated, wasting syndrome with a body mass index of only 11, is mentally challenged and developmentally delayed. Initially admitted with severe sepsis with gram-negative nichole bacteremia, most likely biliary source with an elevation of bilirubin, elevation of alkaline phosphatase out of proportion to AST and ALT with a negative urinalysis and negative urine culture, eventually is intubated on the ventilator, elevated procalcitonin, now the patient was hypotensive with respiratory failure, intubated on a ventilator with healthcare-associated pneumonia. On vancomycin and Zosyn, day #4. The patient's platelets have decreased. In fact, the platelets were low before the vancomycin. The patient had platelets of 89 on 12/26/2017. The vancomycin was started on 01/02/2018. Dr. Ruffin has approached me regarding his concern about vancomycin-induced thrombocytopenia. We discussed the issue with him, vancomycin generally does not cause thrombocytopenia and the thrombocytopenia was present before the vancomycin was initiated. Beta-lactam Zosyn may cause thrombocytopenia. We will discontinue the Zosyn and use cefepime. Overall prognosis is quite poor for this patient. The patient's tracheal aspirate is negative and nasal methicillin-resistant Staphylococcus aureus is also negative. However, that was on 12/25/2017. Overall prognosis quite poor. We will also discontinue the vancomycin because of increasing creatinine and the patient did have hypotension. We will use Maxipime. The patient is a DNR at this point. Overall prognosis is poor. Abdiaziz Sousa MD [facility] # [id number]
[2018-01-05] MEDS: Vasopressin 20 UNITS in Dextrose 5% In Water 100 ML IV SCH (09:16)
[2018-01-05] MEDS ORDERED: Magnesium Sulfate 1 gm in D5W 1 GM/100 ML BAG IVPB ONE (09:17)
[2018-01-05] MEDS: levETIRAcetam 500mg IVPB 500 MG/100 ML BAG IV SCH ×2 (09:42→21:56)
[2018-01-05] MEDS: Bacitracin Ointment 30 GM TUBE TOP SCH ×3 (09:42→18:56)
[2018-01-05] MEDS: Cefepime 1gm in NS 100ml 1 GM/100 ML BAG IVPB SCH ×2 (09:43→21:56)
[2018-01-05 10:03] LABS: PLATELET ESTIMATE LOW (NORMAL)
--- NOTE | 2018-01-05 11:44 | CP.PCM.PN ---
<Donato Basilio - Last Filed: 01/05/18 11:53> Subjective - Date & Time of Evaluation Date of Evaluation: 01/05/18 Time of Evaluation: 08:30 - Subjective Subjective: Donato Basilio DO PGY-1, Materials Research Engineer Medicine Progress Note Pt seen and examined at bedside. Mother of pt at bedside, had discussion with Dr. Wan present about severity of clinical status, poor prognosis, and goals and details of care. Mother of pt stated that all was explained to her by the ICU team as well and she had no concerns or questions at this time. Pt was made DNR status overnight by ICU team after conversation with pt's mother. Pt on versed drip this am, had episode of hypotension and bradycardia overnight and clinical status worsened, central venous catheter placed for better access, pt had bleeding episode with placement that was controlled. Unable to obtain 12- point ROS due to pt's current mental status. Objective - Vital Signs/Intake and Output Vital Signs (last 24 hours): Temp Pulse Resp BP Pulse Ox 96.8 F L 50 L 35 H 160/100 H 100 01/05/18 09:30 01/05/18 09:30 01/05/18 08:15 01/05/18 09:30 01/05/18 09:30 Intake and Output: 01/05/18 01/05/18 06:59 18:59 Intake Total 1600 Output Total 50 Balance 1550 - Medications Medications: Current Medications Albumin Human (Albumin Human 25% (12.5 Gm/50 Ml)) 12.5 gm IV Q4 NASH Last Admin: 01/05/18 08:27 Dose: 12.5 gm Bacitracin (Bacitracin) 1 gm TOP TID NASH Last Admin: 01/05/18 09:42 Dose: 1 gm Dextrose (Dextrose 50% Inj) 25 ml IVP ONCE PRN PRN Reason: Hypoglycemia Last Admin: 01/04/18 04:31 Dose: 25 ml Famotidine (Pepcid) 20 mg IVP DAILY [facility] Levetiracetam (Keppra 500mg Ivpb) 500 mg in 100 mls @ 460 mls/hr IV Q12 NASH Last Admin: 01/05/18 09:42 Dose: 460 mls/hr Norepinephrine Bitartrate 8 mg (/ Sodium Chloride) 508 mls @ 15.24 mls/hr IV .Q24H PRN; Protocol; 4 MCG/MIN PRN Reason: TITRATE PER MD ORDER Dextrose (Dextrose 5% In Water 1000 Ml) 1,000 mls @ 100 mls/hr IV .Q10H NASH Last Admin: 01/05/18 05:21 Dose: 100 mls/hr Fentanyl Citrate (Fentanyl Citrate/Sodium Chloride 1 Mg/100 Ml) 1,000 mcg in 100 mls @ 2 mls/hr IV .Q24H PRN; Protocol; 20 MCG/HR PRN Reason: TITRATE PER MD ORDER Last Titration: 01/04/18 07:45 Dose: 0 mcg/hr, 0 mls/hr Vasopressin 20 units/ Dextrose 101 mls @ 9.09 mls/hr IV .Q11H7M NASH; 0.03 U/MIN PRN Reason: Protocol Last Admin: 01/05/18 09:16 Dose: Not Given NOREPINEPHRINE BIT/0.9 % NACL (Levophed 4 Mg/ 250 Ml Ns Premixed) 4 mg in 250 mls @ 15 mls/hr IV .[id number] PRN; Protocol; 4 MCG/MIN PRN Reason: TITRATE PER MD ORDER Last Admin: 01/04/18 16:56 Dose: 20 mcg/min, 75 mls/hr Midazolam 100 mg/100ml in NS (Midazolam 100 Mg/100ml In Ns) 100 mg in 100 mls @ 1 mls/hr IV .Q24H PRN; Protocol; 1 MG/HR PRN Reason: Agitation Last Admin: 01/04/18 18:57 Dose: 1 mg/hr, 1 mls/hr Cefepime HCl (Maxipime 1gm) 1 gm in 100 mls @ 100 mls/hr IVPB Q12 NASH PRN Reason: Protocol Stop: 01/14/18 10:01 Last Admin: 01/05/18 09:43 Dose: 100 mls/hr Insulin Human Regular (Humulin R Low) 0 units SC ACHS NASH PRN Reason: Protocol Last Admin: 01/05/18 08:17 Dose: Not Given Levalbuterol HCl (Xopenex) 1.25 mg IH [id number] PRN PRN Reason: Shortness of Breath Last Admin: 01/03/18 13:16 Dose: 1.25 mg Potassium Phos/Sodium Phos (Neutra-Phos) 1 pkt PO TID [facility] Last Admin: 12/31/17 18:50 Dose: 1 pkt - Labs Labs: 01/05/18 05:30 01/05/18 05:30 PT 24.1 SECONDS (9.4-12.5) H 01/05/18 05:30 INR 2.06 01/05/18 05:30 APTT 53.5 Seconds (25.1-36.5) H 01/05/18 05:30 - Constitutional Appears: No Acute Distress, Other (Pt intubated currently) - Eye Exam Additional comments: Fixed pupil on R eye unchanged, L eye sluggish reflex - Respiratory Exam Respiratory Exam: Decreased Breath Sounds, NORMAL BREATHING PATTERN - Cardiovascular Exam Cardiovascular Exam: +S1, +S2 Additional comments: Bradycardic - GI/Abdominal Exam GI & Abdominal Exam: Soft, Normal Bowel Sounds. absent: Distended, Tenderness, Rebound - Extremities Exam Extremities Exam: Normal Capillary Refill. absent: Pedal Edema - Neurological Exam Additional comments: Pt intubated - Skin Skin Exam: Dry, Intact, Warm Assessment and Plan - Assessment and Plan (Free Text) Assessment: 42 year old female PMhx developmental delay, admitted for altered mental status with possible septic shock in the setting of multi-organ failure including liver failure, lactic acidosis, and complicated by possible DIC. Patient likely may have had initial HCAP Aspiration PNA that incited the initial septic shock. Currently in ICU intubated, prognosis poor. Pt currently DNR status. Plan: Acute Hypoxemic Respiratory Failure, likely 2/2 ARDS - Developed episode on 01/01/18 requiring intubation by ICU team - Pt on PRVC, FiO2 60, continue to monitor. - On versed drip - Continue with lung-protective ventilation strategy AMS, likely 2/2 Post Ictal State VS Septic Shock - Continue to treat sepsis to treat AMS. Patient relatively back at baseline - F/u CT brain Seizure - resolved - On Keppra Septic Shock - Patient is off of pressors - Vanco held for progressive thrombocytopenia as per ICU - Lactate 3.6 on recent ABG - F/u CXR results - ID consulted, recs appreciated Acute Anemia - Hgb 6.5 this am, will be transfused PRBC as per ICU, continue to trend H/H Thrombocytopenia, likely 2/2 DIC - Fibrin degradation products, d-dimer, and fibrinogen results indicate DIC - Treating Septic shock will treat DIC - Patient has been off of Heparin for many days now - S/p transfusion 2 units FFP, pending platelets, per ICU team - Heme/onc consulted, recs appreciated Acute liver failure - improving since admission - CT Chest/abd/pelvis findings as described above - Abd U/s 12/28: atrophied liver, diffuse increased echogenicity in liver may reflect hepatic steatosis however parenchymal infectious/inflammatory etiologies cannot be excluded; b/l renal atrophy - LFts trending down today - Hepatitis and HIV work-up neg - Acetaminophen levels neg - GI consulted, recs appreciated: at this point, no new recommendations from GI - Anti-mitochondrial Ab neg, smooth muscle Ab neg Fx L Ribs 7-9 CT chest/abd/pelvis findings as listed above Ribs XR: fxs in L 7th and 8th ribs Continue to monitor GI/DVT ppx: Pepcid (changed from protonix due to low platelets); Heparin held due to low platelets, SCDs Pt seen, examined with, and plan discussed with Dr. Wan, attending. <Bhavik Wan - Last Filed: 01/06/18 16:20> Objective - Vital Signs/Intake and Output Vital Signs (last 24 hours): Temp Pulse Resp BP Pulse Ox 97.5 F L 65 33 H 127/90 96 01/06/18 14:40 01/06/18 14:40 01/06/18 14:00 01/06/18 13:00 01/06/18 14:40 Intake and Output: 01/06/18 01/06/18 06:59 18:59 Intake Total 2093 40 Output Total 0 Balance 2093 40 - Medications Medications: Current Medications Albumin Human (Albumin Human 25% (25 Gm/100 Ml)) 12.5 gm IV Q4 [facility] Last Admin: 01/06/18 13:02 Dose: 12.5 gm Bacitracin (Bacitracin) 1 gm TOP TID [facility] Last Admin: 01/06/18 13:02 Dose: 1 applic Famotidine (Pepcid) 20 mg IVP DAILY [facility] Last Admin: 01/06/18 09:32 Dose: 20 mg Levetiracetam (Keppra 500mg Ivpb) 500 mg in 100 mls @ 460 mls/hr IV Q12 [facility] Last Admin: 01/06/18 09:45 Dose: 460 mls/hr Midazolam 100 mg/100ml in NS (Midazolam 100 Mg/100ml In Ns) 100 mg in 100 mls @ 1 mls/hr IV .Q24H PRN; Protocol; 1 MG/HR PRN Reason: Agitation Last Titration: 01/06/18 11:44 Dose: 2 mg/hr, 2 mls/hr Cefepime HCl (Maxipime 1gm) 1 gm in 100 mls @ 100 mls/hr IVPB Q12 NASH PRN Reason: Protocol Stop: 01/14/18 10:01 Last Admin: 01/06/18 09:32 Dose: 100 mls/hr Insulin Human Regular (Humulin R Low) 0 units SC ACHS NASH PRN Reason: Protocol Last Admin: 01/06/18 11:47 Dose: Not Given Levalbuterol HCl (Xopenex) 1.25 mg IH [id number] PRN PRN Reason: Shortness of Breath Last Admin: 01/03/18 13:16 Dose: 1.25 mg - Labs Labs: 01/06/18 04:35 01/06/18 04:35 PT 18.2 SECONDS (9.4-12.5) H 01/06/18 04:35 INR 1.57 01/06/18 04:35 APTT 33.6 Seconds (25.1-36.5) 01/06/18 04:35 Attending/Attestation - Attestation I have personally seen and examined this patient.: Yes I have fully participated in the care of the patient.: Yes I have reviewed all pertinent clinical information, including history, physical exam and plan: Yes Notes (Text): Medical record note made by the resident after discussion with my direction and input after the patient was personally seen and examined by me. I have reviewed the chart and agree that the record accurately reflects by personal performance of the history, physical exam, data review, and medical decision-making, in the course for the patient. I have also personally directed the plan of care. 42 yrs old female with mental retardation was admitted with a seizure like episode, hypothermia and hypoglycemia, bradycardia likely secondary to shock. Shock resolved and she was much improved until 12/31 when she went into resp distress/ARDS requiring intubation.Patient was also hypotensive and was requiring pressor.The etiology of her ARDS is likely Infectious on IV antibiotics as per ID. She is much improved on her oxygenation fio2 requiremnt has come down to 60% .Hypotension has resolved. Hemohlobin and platelet are low, No signs of blood loss.Iron studies show Iron 55 and Ferritin 182 which are not suggestive of iron def anemia. We will order peripheral blood smear and hemolytic work up.We will also get hematology evaluation. LFT are slowly improving. Patient mother has decided to change code status to DNR today. Prognosis is guarded.
--- NOTE | 2018-01-05 12:43 | RAD ---
Date of service: 01/04/2018 HISTORY: s/p TLC insertion COMPARISON: Comparison is made with 01/04/2018 at 6:27 FINDINGS: LUNGS: No significant interval change in the lungs noted since the previous exam. Diffuse hazy opacity at lungs noted again suggestive of pulmonary edema. The ET tube is seen at appropriate position with the tip is approximately 2.5 centimeter above the rm. PLEURA: Blunting of both costophrenic angles suspicious for small pleural effusions CARDIOVASCULAR: The cardiac silhouette is normal in size. OSSEOUS STRUCTURES: No significant abnormalities. VISUALIZED UPPER ABDOMEN: Normal. OTHER FINDINGS: There oval insertion of right jugular central line noted since the previous exam with the distal tip is noted at low position likely in the right atrium. IMPRESSION: Low position of the right jugular central line with the distal tip likely at the right atrium. Otherwise no significant interval change.
--- NOTE | 2018-01-05 13:24 | CT ---
Date of service: 01/05/2018 PROCEDURE: CT HEAD WITHOUT CONTRAST. HISTORY: Unequal Pupil COMPARISON: Comparison is made with 12/26/2017 TECHNIQUE: Axial computed tomography images were obtained through the head/brain without intravenous contrast. Radiation dose: Total exam DLP = 994.1 mGy-cm. This CT exam was performed using one or more of the following dose reduction techniques: Automated exposure control, adjustment of the mA and/or kV according to patient size, and/or use of iterative reconstruction technique. FINDINGS: HEMORRHAGE: No intracranial hemorrhage. BRAIN: There are foci of hypodensity noted in the bilateral occipital lobes larger on the left may represent prior infarction or encephalomalacia or less likely brain lesions. Mild atrophy is noted. [id number] chronic microvascular white matter ischemic disease is again noted. VENTRICLES: Unremarkable. No hydrocephalus. CALVARIUM: Unremarkable. PARANASAL SINUSES: No evidence of significant mucosal thickening or air-fluid level. MASTOID AIR CELLS: Partial opacification of the mastoid air cells is noted. OTHER FINDINGS: There is displacement of the left globe lens noted. There is haziness noted posterior to both globes. The right globe lens is not visualized. Mild bilateral exophthalmos noted slightly more prominent on the right. IMPRESSION: No evidence of acute intracranial hemorrhage. Nonspecific foci of hypodensity noted at the bilateral occipital cortex bilaterally slightly larger on the left may represent old infarcts. Other etiology such as brain lesion is not totally excluded. Diffuse haziness noted in the retrobulbar space bilaterally. 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 Further assessment of the orbits and eyes is recommended.
--- NOTE | 2018-01-05 14:57 | PN ---
Copied To: Bk Newton MD Attending MD: Bk Newton MD. DATE: 01/05/2018 SUBJECTIVE: Patient is sedated, on a ventilator, no reported hypotension. Patient developed junctional rhythm at the rate of 50. The patient's mother signed on [id number] request. No reported hypotension. PHYSICAL EXAMINATION: VITAL SIGNS: Most recent blood pressure is 160/100, heart rate 50, temperature 96.8, respirations 35. HEENT: Pale conjunctivae. CHEST: Diffuse bilateral rhonchi. HEART: S1, S2, regular. EXTREMITIES: Significant muscle wasting. LABORATORY DATA: Hemoglobin and hematocrit is 6.5 and 18.5, white count 8.5, platelet count 22,000. Today's SMA-7: Sodium 138, potassium 3.9, chloride 103, CO2 18, glucose 112, BUN 31, creatinine 1.3. AST and ALT are 259 and 244 respectively, alkaline phosphatase is 288. Today's chest x-ray revealed diffuse bilateral alveolar infiltrate. ASSESSMENT: 1. Bilateral pneumonia. 2. Respiratory failure. 3. Junctional bradycardia. 4. Gram-negative sepsis. RECOMMENDATIONS: Continue current supportive measures. intravenous antibiotics which include IV Maxipime at 1 g every 12 hours. The prognosis is grave and the case was discussed with the patient's mother at the bedside. No specific intervention is needed for the patient's junctional bradycardia. Bk Newton MD
[2018-01-05] MEDS ORDERED: Midazolam 2 MG/2 ML VIAL IVP PRN (18:32)
[2018-01-05 19:05] LABS: INR 1.68; PROTHROMBIN TIME 19.4 SECONDS (9.4-12.5)
[2018-01-06] MEDS: Albumin Human 25% (12.5 gm/50 ml) IV SCH ×2 (03:11→10:00)
[2018-01-06 05:10] LABS: GRAN # 2.54 (1.4-6.5); GRAN % 79.7 % (50.0-68.0); HEMOGLOBIN 7.6 g/dL (12.0-16.0); LYMPH # 0.6 (1.2-3.4); LYMPH % 19.4 % (22.0-35.0); MEAN CORPUSCULAR HEMOGLOBIN 29.5 pg (25.0-35.0); MEAN CORPUSCULAR HGB CONC 36.4 g/dl (31.0-37.0); MEAN PLATELET VOLUME 9.5 fl (7.0-11.0); MONO % 0.9 % (1.0-6.0); RBC 2.58 10^6/uL (3.5-6.1); RED CELL DISTRIBUTION WIDTH 16.8 % (11.5-14.5); WHITE BLOOD COUNT 3.2 10^3/ul (4.5-11.0)
[2018-01-06 05:13] LABS: ALB/GLOB RATIO 1.4 (1.1-1.8); ALBUMIN 3.4 g/dL (3.0-4.8); CALCIUM 7.5 mg/dL (8.4-10.5)
[2018-01-06 06:23] LABS: ARTERIAL BLOOD GAS HCO3 16.6 mmol/L (21-28); ARTERIAL BLOOD GAS HEMOGLOBIN 7.5 g/dL (11.7-17.4); ARTERIAL BLOOD GAS O2 CAPACITY 10.4 mL/dl (16-24); ARTERIAL BLOOD GAS O2 CONTENT 10.2 ML/dl (15-23); ARTERIAL BLOOD GAS O2 SAT 98.2 % (95-98); ARTERIAL BLOOD GAS PCO2 30 mm/Hg (35-45); ARTERIAL BLOOD GAS PH 7.35 (7.35-7.45); ARTERIAL BLOOD GAS TCO2 17.5 mmol.L (22-28)
[2018-01-06 07:00] LABS: INR 1.57; PARTIAL THROMBOPLASTIN TIME 33.6 Seconds (25.1-36.5); PROTHROMBIN TIME 18.2 SECONDS (9.4-12.5)
[2018-01-06] MEDS: Insulin Reg-LOW-Coverage SC SCH ×4 (08:13→23:00)
--- NOTE | 2018-01-06 08:40 | CP.CCUPN ---
<Tenzin Welch - Last Filed: 01/06/18 11:59> CCU Subjective - Physician Review Subjective (Free Text): Tenzin Welch DO PGY1 - Internal Medicine Academic Program Specialist - ICU Progress Note Patient seen this morning at bedside No issues reported overnight In bed intubated and sedated 01/06/18 08:36 CCU Objective - Vital Signs / Intake & Output Vital Signs (Last 4 hours): Vital Signs Temp Pulse Resp BP Pulse Ox 01/06/18 06:00 97.0 F L 70 38 H 138/92 H 93 L 01/06/18 05:00 86 34 H 129/80 90 L Intake and Output (Last 8hrs): Intake & Output 01/05/18 01/06/18 01/06/18 22:59 06:59 14:59 Intake Total 2080 1812 Output Total 50 0 Balance 2029 1811 Intake: IV 1698 1472 D50 800 900 Left Forearm 698 albumin 100 cefepime 100 keppra 100 100 plt ph 304 versed 18 Oral 0 Tube Feeding 100 240 Blood Product 282 Apheresis Rbc Cp2d As3 Lr 282 2nd Unit [id number] Albumin 100 Output: Urine 50 0 Urethral (Ann) 50 0 Other: # Bowel Movements 2 - Physical Exam Head: Positive for: Atraumatic, Normocephalic Pupils: Positive for: PERRL Extroacular Muscles: Positive for: EOMI Conjunctiva: Positive for: Normal Mouth: Positive for: Other (POOR DENTITION; intubated) Neck: Positive for: Other (Central line access in place. Pressure dressing in place. ) Respiratory/Chest: Positive for: Rhonchi (bilaterally), Other (intubated on PRVC mode). Negative for: Accessory Muscle Use, Wheezes, Decreased Breath Sounds, Rales, Retracting, Tender to Palpation Cardiovascular: Positive for: Regular Rate and Rhythm, Normal S1, S2. Negative for: Murmurs Abdomen: Positive for: Normal Bowel Sounds, Other (Soft; ). Negative for: Tenderness, Distention, Peritoneal Signs, Rebound, Guarding, McBurney's Point Tender, Rovsing's Sign Present, Hernias, Feeding Tubes, Ostomy Tubes, Mass/ Organomegaly, Scars Back: Positive for: Normal Inspection Upper Extremity: Positive for: Normal Inspection. Negative for: Cyanosis, Edema Lower Extremity: Positive for: Normal Inspection, NORMAL PULSES (Pulses diminished BL). Negative for: Edema Neurological: Positive for: Other (Sedated on Versed drip; R eye dilated sluggish, L eye constricted reactive. Pupils are unequal. ) Skin: Positive for: Warm, Dry, Normal Color. Negative for: Rashes Other physical findings (Free Text): Gross anasarca - Medications Active Medications: Active Medications Generic Name Dose Route Start Last Admin Trade Name Freq PRN Reason Stop Dose Admin Albumin Human 12.5 gm 01/02/18 16:00 01/06/18 03:11 Albumin Human 25% (12.5 Gm/50 Ml) IV 12.5 gm Q4 NASH Administration Bacitracin 1 gm 01/02/18 18:00 01/05/18 18:56 Bacitracin TOP 1 gm TID NASH Administration Famotidine 20 mg 01/05/18 10:45 01/05/18 12:17 Pepcid IVP 20 mg DAILY NASH Administration Levetiracetam 500 mg in 100 mls @ 460 mls/hr 12/27/17 07:57 01/05/18 21:56 Keppra 500mg Ivpb IV 460 mls/hr Q12 NASH Administration Dextrose 1,000 mls @ 100 mls/hr 01/03/18 07:15 01/06/18 00:54 Dextrose 5% In Water 1000 Ml IV 100 mls/hr .Q10H NASH Administration Midazolam 100 mg/100ml in NS 100 mg in 100 mls @ 1 mls/hr 01/04/18 17:17 08/20 02:00 Midazolam 100 Mg/100ml In Ns IV 2 mg/hr .Q24H PRN 2 mls/hr Agitation Titration Protocol 1 MG/HR Cefepime HCl 1 gm in 100 mls @ 100 mls/hr 01/05/18 10:00 01/05/18 21:56 Maxipime 1gm IVPB 01/14/18 10:01 100 mls/hr Q12 NASH Administration Protocol Potassium Chloride 20 meq in 100 mls @ 50 mls/hr 01/06/18 05:30 01/06/18 07: 53 Potassium Chloride 20 Meq/100 Ml IVPB 01/06/18 13:29 50 mls/hr Q2H NASH Administration Insulin Human Regular 0 units 01/02/18 16:30 01/06/18 08:13 Humulin R Low SC Not Given ACHS NASH Protocol Levalbuterol HCl 1.25 mg 12/31/17 18:28 01/03/18 13:16 Xopenex IH 1.25 mg [id number] PRN Administration Shortness of Breath - Patient Studies Lab Studies: Microbiology Studies 01/02/18 07:00 Blood Culture - Preliminary Blood NO GROWTH AFTER 4 DAYS 01/02/18 06:45 Blood Culture - Preliminary Blood NO GROWTH AFTER 4 DAYS 01/04/18 15:00 C. difficile Antigen & Toxin A,B (M - Final Stool 01/03/18 09:00 Gram Stain - Final Trachasp Sputum Culture - Final NORMAL ORAL MAYURI Lab Studies 01/06/18 01/06/18 01/06/18 Range/Units 06:00 04:35 04:35 WBC (4.5-11.0) 10^3/ul RBC (3.5-6.1) 10^6/uL Hgb (12.0-16.0) g/dL Hct (36.0-48.0) % MCV (80.0-105.0) fl MCH (25.0-35.0) pg MCHC (31.0-37.0) g/dl RDW (11.5-14.5) % Plt Count (120.0-450.0) 10^3/uL MPV (7.0-11.0) fl Gran % (50.0-68.0) % Lymph % (Auto) (22.0-35.0) % Fleming % (Auto) (1.0-6.0) % Eos % (Auto) (1.5-5.0) % Baso % (Auto) (0.0-3.0) % Gran # (1.4-6.5) Lymph # (Auto) (1.2-3.4) Fleming # (Auto) (0.1-0.6) Eos # (Auto) (0.0-0.7) Baso # (Auto) (0.0-2.0) K/mm3 Platelet Evaluation (NORMAL) Retic Count (0.5-1.5) % Haptoglobin (30.0-200.0) mg/dL PT 18.2 H (9.4-12.5) SECONDS INR 1.57 APTT 33.6 (25.1-36.5) Seconds Fibrinogen 187 L (200-400) mg/dl pCO2 30 L (35-45) mm/Hg pO2 72.0 L (80-100) mm/Hg HCO3 16.6 L (21-28) mmol/L ABG pH 7.35 (7.35-7.45) ABG Total CO2 17.5 L (22-28) mmol.L ABG O2 Saturation 98.2 H (95-98) % ABG O2 Content 10.2 L (15-23) ML/dl ABG Base Excess -8.2 L (-2.0-3.0) mmol/L ABG Hemoglobin 7.5 L (11.7-17.4) g/dL ABG Carboxyhemoglobin 2.1 H (0.5-1.5) % POC ABG HHb (Measured) 1.8 (0-5) % ABG Methemoglobin 0.6 (0.0-3.0) % ABG O2 Capacity 10.4 L (16-24) mL/dl Hgb O2 Saturation 95.5 (95.0-98.0) % FiO2 60.0 % Sodium (132-148) mmol/L Potassium (3.6-5.0) mmol/L Chloride (98-107) mmol/L Carbon Dioxide (21-33) mmol/L Anion Gap (10-20) BUN (7-21) mg/dL Creatinine (0.7-1.2) mg/dl Est GFR ( Amer) Est GFR (Non-Af Amer) POC Glucose (mg/dL) (65-110) mg/dL Random Glucose (70-110) mg/dL Calcium (8.4-10.5) mg/dL Phosphorus (2.5-4.5) mg/dL Magnesium (1.7-2.2) mg/dL Total Bilirubin (0.2-1.3) mg/dL Direct Bilirubin (0.0-0.4) mg/dL AST (14-36) U/L ALT (7-56) U/L Alkaline Phosphatase (38-126) U/L Lactate Dehydrogenase (333-699) U/L Total Protein (5.8-8.3) g/dL Albumin (3.0-4.8) g/dL Globulin gm/dL Albumin/Globulin Ratio (1.1-1.8) Stool Occult Blood (NEGATIVE) Blood Type Antibody Screen Crossmatch BBK History Checked 01/06/18 01/06/18 01/05/18 Range/Units 04:35 04:35 21:51 WBC 3.2 L D (4.5-11.0) 10^3/ul RBC 2.58 L (3.5-6.1) 10^6/uL Hgb 7.6 L (12.0-16.0) g/dL Hct 20.9 L* (36.0-48.0) % MCV 81.0 (80.0-105.0) fl MCH 29.5 (25.0-35.0) pg MCHC 36.4 (31.0-37.0) g/dl RDW 16.8 H (11.5-14.5) % Plt Count 94 L (120.0-450.0) 10^3/uL MPV 9.5 (7.0-11.0) fl Gran % 79.7 H (50.0-68.0) % Lymph % (Auto) 19.4 L (22.0-35.0) % Fleming % (Auto) 0.9 L (1.0-6.0) % Eos % (Auto) 0.0 L (1.5-5.0) % Baso % (Auto) 0.0 (0.0-3.0) % Gran # 2.54 (1.4-6.5) Lymph # (Auto) 0.6 L (1.2-3.4) Fleming # (Auto) 0.0 L (0.1-0.6) Eos # (Auto) 0.0 (0.0-0.7) Baso # (Auto) 0.00 (0.0-2.0) K/mm3 Platelet Evaluation (NORMAL) Retic Count (0.5-1.5) % Haptoglobin (30.0-200.0) mg/dL PT (9.4-12.5) SECONDS INR APTT (25.1-36.5) Seconds Fibrinogen (200-400) mg/dl pCO2 (35-45) mm/Hg pO2 (80-100) mm/Hg HCO3 (21-28) mmol/L ABG pH (7.35-7.45) ABG Total CO2 (22-28) mmol.L ABG O2 Saturation (95-98) % ABG O2 Content (15-23) ML/dl ABG Base Excess (-2.0-3.0) mmol/L ABG Hemoglobin (11.7-17.4) g/dL ABG Carboxyhemoglobin (0.5-1.5) % POC ABG HHb (Measured) (0-5) % ABG Methemoglobin (0.0-3.0) % ABG O2 Capacity (16-24) mL/dl Hgb O2 Saturation (95.0-98.0) % FiO2 % Sodium 135 (132-148) mmol/L Potassium 2.8 L* D (3.6-5.0) mmol/L Chloride 98 (98-107) mmol/L Carbon Dioxide 18 L (21-33) mmol/L Anion Gap 22 H (10-20) BUN 40 H (7-21) mg/dL Creatinine 1.6 H (0.7-1.2) mg/dl Est GFR ( Amer) 42 Est GFR (Non-Af Amer) 35 POC Glucose (mg/dL) 78 (65-110) mg/dL Random Glucose 118 H (70-110) mg/dL Calcium 7.5 L (8.4-10.5) mg/dL Phosphorus 3.6 (2.5-4.5) mg/dL Magnesium 1.9 (1.7-2.2) mg/dL Total Bilirubin 4.1 H (0.2-1.3) mg/dL Direct Bilirubin (0.0-0.4) mg/dL AST 169 H D (14-36) U/L ALT 222 H (7-56) U/L Alkaline Phosphatase 355 H D (38-126) U/L Lactate Dehydrogenase (333-699) U/L Total Protein 5.8 (5.8-8.3) g/dL Albumin 3.4 (3.0-4.8) g/dL Globulin 2.4 gm/dL Albumin/Globulin Ratio 1.4 (1.1-1.8) Stool Occult Blood (NEGATIVE) Blood Type Antibody Screen Crossmatch BBK History Checked 01/05/18 01/05/18 01/05/18 Range/Units 20:10 18:53 18:50 WBC (4.5-11.0) 10^3/ul RBC (3.5-6.1) 10^6/uL Hgb (12.0-16.0) g/dL Hct (36.0-48.0) % MCV (80.0-105.0) fl MCH (25.0-35.0) pg MCHC (31.0-37.0) g/dl RDW (11.5-14.5) % Plt Count (120.0-450.0) 10^3/uL MPV (7.0-11.0) fl Gran % (50.0-68.0) % Lymph % (Auto) (22.0-35.0) % Fleming % (Auto) (1.0-6.0) % Eos % (Auto) (1.5-5.0) % Baso % (Auto) (0.0-3.0) % Gran # (1.4-6.5) Lymph # (Auto) (1.2-3.4) Fleming # (Auto) (0.1-0.6) Eos # (Auto) (0.0-0.7) Baso # (Auto) (0.0-2.0) K/mm3 Platelet Evaluation (NORMAL) Retic Count (0.5-1.5) % Haptoglobin (30.0-200.0) mg/dL PT 19.4 H (9.4-12.5) SECONDS INR 1.68 APTT (25.1-36.5) Seconds Fibrinogen (200-400) mg/dl pCO2 (35-45) mm/Hg pO2 (80-100) mm/Hg HCO3 (21-28) mmol/L ABG pH (7.35-7.45) ABG Total CO2 (22-28) mmol.L ABG O2 Saturation (95-98) % ABG O2 Content (15-23) ML/dl ABG Base Excess (-2.0-3.0) mmol/L ABG Hemoglobin (11.7-17.4) g/dL ABG Carboxyhemoglobin (0.5-1.5) % POC ABG HHb (Measured) (0-5) % ABG Methemoglobin (0.0-3.0) % ABG O2 Capacity (16-24) mL/dl Hgb O2 Saturation (95.0-98.0) % FiO2 % Sodium (132-148) mmol/L Potassium (3.6-5.0) mmol/L Chloride (98-107) mmol/L Carbon Dioxide (21-33) mmol/L Anion Gap (10-20) BUN (7-21) mg/dL Creatinine (0.7-1.2) mg/dl Est GFR ( Amer) Est GFR (Non-Af Amer) POC Glucose (mg/dL) 83 (65-110) mg/dL Random Glucose (70-110) mg/dL Calcium (8.4-10.5) mg/dL Phosphorus (2.5-4.5) mg/dL Magnesium (1.7-2.2) mg/dL Total Bilirubin (0.2-1.3) mg/dL Direct Bilirubin (0.0-0.4) mg/dL AST (14-36) U/L ALT (7-56) U/L Alkaline Phosphatase (38-126) U/L Lactate Dehydrogenase (333-699) U/L Total Protein (5.8-8.3) g/dL Albumin (3.0-4.8) g/dL Globulin gm/dL Albumin/Globulin Ratio (1.1-1.8) Stool Occult Blood Negative (NEGATIVE) Blood Type Antibody Screen Crossmatch BBK History Checked 01/05/18 01/05/18 01/05/18 Range/Units 18:29 15:43 13:48 WBC (4.5-11.0) 10^3/ul RBC (3.5-6.1) 10^6/uL Hgb (12.0-16.0) g/dL Hct (36.0-48.0) % MCV (80.0-105.0) fl MCH (25.0-35.0) pg MCHC (31.0-37.0) g/dl RDW (11.5-14.5) % Plt Count (120.0-450.0) 10^3/uL MPV (7.0-11.0) fl Gran % (50.0-68.0) % Lymph % (Auto) (22.0-35.0) % Fleming % (Auto) (1.0-6.0) % Eos % (Auto) (1.5-5.0) % Baso % (Auto) (0.0-3.0) % Gran # (1.4-6.5) Lymph # (Auto) (1.2-3.4) Fleming # (Auto) (0.1-0.6) Eos # (Auto) (0.0-0.7) Baso # (Auto) (0.0-2.0) K/mm3 Platelet Evaluation (NORMAL) Retic Count (0.5-1.5) % Haptoglobin (30.0-200.0) mg/dL PT (9.4-12.5) SECONDS INR APTT (25.1-36.5) Seconds Fibrinogen (200-400) mg/dl pCO2 (35-45) mm/Hg pO2 (80-100) mm/Hg HCO3 (21-28) mmol/L ABG pH (7.35-7.45) ABG Total CO2 (22-28) mmol.L ABG O2 Saturation (95-98) % ABG O2 Content (15-23) ML/dl ABG Base Excess (-2.0-3.0) mmol/L ABG Hemoglobin (11.7-17.4) g/dL ABG Carboxyhemoglobin (0.5-1.5) % POC ABG HHb (Measured) (0-5) % ABG Methemoglobin (0.0-3.0) % ABG O2 Capacity (16-24) mL/dl Hgb O2 Saturation (95.0-98.0) % FiO2 % Sodium (132-148) mmol/L Potassium (3.6-5.0) mmol/L Chloride (98-107) mmol/L Carbon Dioxide (21-33) mmol/L Anion Gap (10-20) BUN (7-21) mg/dL Creatinine (0.7-1.2) mg/dl Est GFR ( Amer) Est GFR (Non-Af Amer) POC Glucose (mg/dL) 98 101 106 (65-110) mg/dL Random Glucose (70-110) mg/dL Calcium (8.4-10.5) mg/dL Phosphorus (2.5-4.5) mg/dL Magnesium (1.7-2.2) mg/dL Total Bilirubin (0.2-1.3) mg/dL Direct Bilirubin (0.0-0.4) mg/dL AST (14-36) U/L ALT (7-56) U/L Alkaline Phosphatase (38-126) U/L Lactate Dehydrogenase (333-699) U/L Total Protein (5.8-8.3) g/dL Albumin (3.0-4.8) g/dL Globulin gm/dL Albumin/Globulin Ratio (1.1-1.8) Stool Occult Blood (NEGATIVE) Blood Type Antibody Screen Crossmatch BBK History Checked 01/05/18 01/05/18 01/05/18 Range/Units 11:40 10:24 08:07 WBC (4.5-11.0) 10^3/ul RBC (3.5-6.1) 10^6/uL Hgb (12.0-16.0) g/dL Hct (36.0-48.0) % MCV (80.0-105.0) fl MCH (25.0-35.0) pg MCHC (31.0-37.0) g/dl RDW (11.5-14.5) % Plt Count (120.0-450.0) 10^3/uL MPV (7.0-11.0) fl Gran % (50.0-68.0) % Lymph % (Auto) (22.0-35.0) % Fleming % (Auto) (1.0-6.0) % Eos % (Auto) (1.5-5.0) % Baso % (Auto) (0.0-3.0) % Gran # (1.4-6.5) Lymph # (Auto) (1.2-3.4) Fleming # (Auto) (0.1-0.6) Eos # (Auto) (0.0-0.7) Baso # (Auto) (0.0-2.0) K/mm3 Platelet Evaluation (NORMAL) Retic Count (0.5-1.5) % Haptoglobin (30.0-200.0) mg/dL PT (9.4-12.5) SECONDS INR APTT (25.1-36.5) Seconds Fibrinogen (200-400) mg/dl pCO2 (35-45) mm/Hg pO2 (80-100) mm/Hg HCO3 (21-28) mmol/L ABG pH (7.35-7.45) ABG Total CO2 (22-28) mmol.L ABG O2 Saturation (95-98) % ABG O2 Content (15-23) ML/dl ABG Base Excess (-2.0-3.0) mmol/L ABG Hemoglobin (11.7-17.4) g/dL ABG Carboxyhemoglobin (0.5-1.5) % POC ABG HHb (Measured) (0-5) % ABG Methemoglobin (0.0-3.0) % ABG O2 Capacity (16-24) mL/dl Hgb O2 Saturation (95.0-98.0) % FiO2 % Sodium (132-148) mmol/L Potassium (3.6-5.0) mmol/L Chloride (98-107) mmol/L Carbon Dioxide (21-33) mmol/L Anion Gap (10-20) BUN (7-21) mg/dL Creatinine (0.7-1.2) mg/dl Est GFR ( Amer) Est GFR (Non-Af Amer) POC Glucose (mg/dL) 87 117 H 132 H (65-110) mg/dL Random Glucose (70-110) mg/dL Calcium (8.4-10.5) mg/dL Phosphorus (2.5-4.5) mg/dL Magnesium (1.7-2.2) mg/dL Total Bilirubin (0.2-1.3) mg/dL Direct Bilirubin (0.0-0.4) mg/dL AST (14-36) U/L ALT (7-56) U/L Alkaline Phosphatase (38-126) U/L Lactate Dehydrogenase (333-699) U/L Total Protein (5.8-8.3) g/dL Albumin (3.0-4.8) g/dL Globulin gm/dL Albumin/Globulin Ratio (1.1-1.8) Stool Occult Blood (NEGATIVE) Blood Type Antibody Screen Crossmatch BBK History Checked 01/05/18 01/05/18 01/05/18 Range/Units 06:00 06:00 06:00 WBC (4.5-11.0) 10^3/ul RBC (3.5-6.1) 10^6/uL Hgb (12.0-16.0) g/dL Hct (36.0-48.0) % MCV (80.0-105.0) fl MCH (25.0-35.0) pg MCHC (31.0-37.0) g/dl RDW (11.5-14.5) % Plt Count (120.0-450.0) 10^3/uL MPV (7.0-11.0) fl Gran % (50.0-68.0) % Lymph % (Auto) (22.0-35.0) % Fleming % (Auto) (1.0-6.0) % Eos % (Auto) (1.5-5.0) % Baso % (Auto) (0.0-3.0) % Gran # (1.4-6.5) Lymph # (Auto) (1.2-3.4) Fleming # (Auto) (0.1-0.6) Eos # (Auto) (0.0-0.7) Baso # (Auto) (0.0-2.0) K/mm3 Platelet Evaluation (NORMAL) Retic Count 0.58 (0.5-1.5) % Haptoglobin 69.4 (30.0-200.0) mg/dL PT (9.4-12.5) SECONDS INR APTT (25.1-36.5) Seconds Fibrinogen (200-400) mg/dl pCO2 (35-45) mm/Hg pO2 (80-100) mm/Hg HCO3 (21-28) mmol/L ABG pH (7.35-7.45) ABG Total CO2 (22-28) mmol.L ABG O2 Saturation (95-98) % ABG O2 Content (15-23) ML/dl ABG Base Excess (-2.0-3.0) mmol/L ABG Hemoglobin (11.7-17.4) g/dL ABG Carboxyhemoglobin (0.5-1.5) % POC ABG HHb (Measured) (0-5) % ABG Methemoglobin (0.0-3.0) % ABG O2 Capacity (16-24) mL/dl Hgb O2 Saturation (95.0-98.0) % FiO2 % Sodium (132-148) mmol/L Potassium (3.6-5.0) mmol/L Chloride (98-107) mmol/L Carbon Dioxide (21-33) mmol/L Anion Gap (10-20) BUN (7-21) mg/dL Creatinine (0.7-1.2) mg/dl Est GFR ( Amer) Est GFR (Non-Af Amer) POC Glucose (mg/dL) (65-110) mg/dL Random Glucose (70-110) mg/dL Calcium (8.4-10.5) mg/dL Phosphorus (2.5-4.5) mg/dL Magnesium (1.7-2.2) mg/dL Total Bilirubin (0.2-1.3) mg/dL Direct Bilirubin (0.0-0.4) mg/dL AST (14-36) U/L ALT (7-56) U/L Alkaline Phosphatase (38-126) U/L Lactate Dehydrogenase 2725 H (333-699) U/L Total Protein (5.8-8.3) g/dL Albumin (3.0-4.8) g/dL Globulin gm/dL Albumin/Globulin Ratio (1.1-1.8) Stool Occult Blood (NEGATIVE) Blood Type Antibody Screen Crossmatch BBK History Checked 01/05/18 01/05/18 01/04/18 Range/Units 05:30 05:30 11:00 WBC (4.5-11.0) 10^3/ul RBC (3.5-6.1) 10^6/uL Hgb (12.0-16.0) g/dL Hct (36.0-48.0) % MCV (80.0-105.0) fl MCH (25.0-35.0) pg MCHC (31.0-37.0) g/dl RDW (11.5-14.5) % Plt Count (120.0-450.0) 10^3/uL MPV (7.0-11.0) fl Gran % (50.0-68.0) % Lymph % (Auto) (22.0-35.0) % Fleming % (Auto) (1.0-6.0) % Eos % (Auto) (1.5-5.0) % Baso % (Auto) (0.0-3.0) % Gran # (1.4-6.5) Lymph # (Auto) (1.2-3.4) Fleming # (Auto) (0.1-0.6) Eos # (Auto) (0.0-0.7) Baso # (Auto) (0.0-2.0) K/mm3 Platelet Evaluation Low (NORMAL) Retic Count (0.5-1.5) % Haptoglobin (30.0-200.0) mg/dL PT (9.4-12.5) SECONDS INR APTT (25.1-36.5) Seconds Fibrinogen (200-400) mg/dl pCO2 (35-45) mm/Hg pO2 (80-100) mm/Hg HCO3 (21-28) mmol/L ABG pH (7.35-7.45) ABG Total CO2 (22-28) mmol.L ABG O2 Saturation (95-98) % ABG O2 Content (15-23) ML/dl ABG Base Excess (-2.0-3.0) mmol/L ABG Hemoglobin (11.7-17.4) g/dL ABG Carboxyhemoglobin (0.5-1.5) % POC ABG HHb (Measured) (0-5) % ABG Methemoglobin (0.0-3.0) % ABG O2 Capacity (16-24) mL/dl Hgb O2 Saturation (95.0-98.0) % FiO2 % Sodium (132-148) mmol/L Potassium (3.6-5.0) mmol/L Chloride (98-107) mmol/L Carbon Dioxide (21-33) mmol/L Anion Gap (10-20) BUN (7-21) mg/dL Creatinine (0.7-1.2) mg/dl Est GFR ( Amer) Est GFR (Non-Af Amer) POC Glucose (mg/dL) (65-110) mg/dL Random Glucose (70-110) mg/dL Calcium (8.4-10.5) mg/dL Phosphorus (2.5-4.5) mg/dL Magnesium (1.7-2.2) mg/dL Total Bilirubin (0.2-1.3) mg/dL Direct Bilirubin 3.0 H (0.0-0.4) mg/dL AST (14-36) U/L ALT (7-56) U/L Alkaline Phosphatase (38-126) U/L Lactate Dehydrogenase (333-699) U/L Total Protein (5.8-8.3) g/dL Albumin (3.0-4.8) g/dL Globulin gm/dL Albumin/Globulin Ratio (1.1-1.8) Stool Occult Blood (NEGATIVE) Blood Type A NEGATIVE Antibody Screen Negative Crossmatch See Detail BBK History Checked Patient has bt Laboratory Results - last 24 hr 01/04/18 01/05/18 01/05/18 11:00 05:30 05:30 WBC RBC Hgb Hct MCV MCH MCHC RDW Plt Count MPV Gran % Lymph % (Auto) Fleming % (Auto) Eos % (Auto) Baso % (Auto) Gran # Lymph # (Auto) Fleming # (Auto) Eos # (Auto) Baso # (Auto) Platelet Evaluation Low Retic Count Haptoglobin PT INR APTT Fibrinogen pCO2 pO2 HCO3 ABG pH ABG Total CO2 ABG O2 Saturation ABG O2 Content ABG Base Excess ABG Hemoglobin ABG Carboxyhemoglobin POC ABG HHb (Measured) ABG Methemoglobin ABG O2 Capacity Hgb O2 Saturation FiO2 Sodium Potassium Chloride Carbon Dioxide Anion Gap BUN Creatinine Est GFR ( Amer) Est GFR (Non-Af Amer) POC Glucose (mg/dL) Random Glucose Calcium Phosphorus Magnesium Total Bilirubin Direct Bilirubin 3.0 H AST ALT Alkaline Phosphatase Lactate Dehydrogenase Total Protein Albumin Globulin Albumin/Globulin Ratio Stool Occult Blood Blood Type A NEGATIVE Antibody Screen Negative Crossmatch See Detail BBK History Checked Patient has bt 01/05/18 01/05/18 01/05/18 06:00 06:00 06:00 WBC RBC Hgb Hct MCV MCH MCHC RDW Plt Count MPV Gran % Lymph % (Auto) Fleming % (Auto) Eos % (Auto) Baso % (Auto) Gran # Lymph # (Auto) Fleming # (Auto) Eos # (Auto) Baso # (Auto) Platelet Evaluation Retic Count 0.58 Haptoglobin 69.4 PT INR APTT Fibrinogen pCO2 pO2 HCO3 ABG pH ABG Total CO2 ABG O2 Saturation ABG O2 Content ABG Base Excess ABG Hemoglobin ABG Carboxyhemoglobin POC ABG HHb (Measured) ABG Methemoglobin ABG O2 Capacity Hgb O2 Saturation FiO2 Sodium Potassium Chloride Carbon Dioxide Anion Gap BUN Creatinine Est GFR ( Amer) Est GFR (Non-Af Amer) POC Glucose (mg/dL) Random Glucose Calcium Phosphorus Magnesium Total Bilirubin Direct Bilirubin AST ALT Alkaline Phosphatase Lactate Dehydrogenase 2725 H Total Protein Albumin Globulin Albumin/Globulin Ratio Stool Occult Blood Blood Type Antibody Screen Crossmatch BBK History Checked 01/05/18 01/05/18 01/05/18 08:07 10:24 11:40 WBC RBC Hgb Hct MCV MCH MCHC RDW Plt Count MPV Gran % Lymph % (Auto) Fleming % (Auto) Eos % (Auto) Baso % (Auto) Gran # Lymph # (Auto) Fleming # (Auto) Eos # (Auto) Baso # (Auto) Platelet Evaluation Retic Count Haptoglobin PT INR APTT Fibrinogen pCO2 pO2 HCO3 ABG pH ABG Total CO2 ABG O2 Saturation ABG O2 Content ABG Base Excess ABG Hemoglobin ABG Carboxyhemoglobin POC ABG HHb (Measured) ABG Methemoglobin ABG O2 Capacity Hgb O2 Saturation FiO2 Sodium Potassium Chloride Carbon Dioxide Anion Gap BUN Creatinine Est GFR ( Amer) Est GFR (Non-Af Amer) POC Glucose (mg/dL) 132 H 117 H 87 Random Glucose Calcium Phosphorus Magnesium Total Bilirubin Direct Bilirubin AST ALT Alkaline Phosphatase Lactate Dehydrogenase Total Protein Albumin Globulin Albumin/Globulin Ratio Stool Occult Blood Blood Type Antibody Screen Crossmatch BBK History Checked 01/05/18 01/05/18 01/05/18 13:48 15:43 18:29 WBC RBC Hgb Hct MCV MCH MCHC RDW Plt Count MPV Gran % Lymph % (Auto) Fleming % (Auto) Eos % (Auto) Baso % (Auto) Gran # Lymph # (Auto) Fleming # (Auto) Eos # (Auto) Baso # (Auto) Platelet Evaluation Retic Count Haptoglobin PT INR APTT Fibrinogen pCO2 pO2 HCO3 ABG pH ABG Total CO2 ABG O2 Saturation ABG O2 Content ABG Base Excess ABG Hemoglobin ABG Carboxyhemoglobin POC ABG HHb (Measured) ABG Methemoglobin ABG O2 Capacity Hgb O2 Saturation FiO2 Sodium Potassium Chloride Carbon Dioxide Anion Gap BUN Creatinine Est GFR ( Amer) Est GFR (Non-Af Amer) POC Glucose (mg/dL) 106 101 98 Random Glucose Calcium Phosphorus Magnesium Total Bilirubin Direct Bilirubin AST ALT Alkaline Phosphatase Lactate Dehydrogenase Total Protein Albumin Globulin Albumin/Globulin Ratio Stool Occult Blood Blood Type Antibody Screen Crossmatch BBK History Checked 01/05/18 01/05/18 01/05/18 18:50 18:53 20:10 WBC RBC Hgb Hct MCV MCH MCHC RDW Plt Count MPV Gran % Lymph % (Auto) Fleming % (Auto) Eos % (Auto) Baso % (Auto) Gran # Lymph # (Auto) Fleming # (Auto) Eos # (Auto) Baso # (Auto) Platelet Evaluation Retic Count Haptoglobin PT 19.4 H INR 1.68 APTT Fibrinogen pCO2 pO2 HCO3 ABG pH ABG Total CO2 ABG O2 Saturation ABG O2 Content ABG Base Excess ABG Hemoglobin ABG Carboxyhemoglobin POC ABG HHb (Measured) ABG Methemoglobin ABG O2 Capacity Hgb O2 Saturation FiO2 Sodium Potassium Chloride Carbon Dioxide Anion Gap BUN Creatinine Est GFR ( Amer) Est GFR (Non-Af Amer) POC Glucose (mg/dL) 83 Random Glucose Calcium Phosphorus Magnesium Total Bilirubin Direct Bilirubin AST ALT Alkaline Phosphatase Lactate Dehydrogenase Total Protein Albumin Globulin Albumin/Globulin Ratio Stool Occult Blood Negative Blood Type Antibody Screen Crossmatch BBK History Checked 01/05/18 01/06/18 01/06/18 21:51 04:35 04:35 WBC 3.2 L D RBC 2.58 L Hgb 7.6 L Hct 20.9 L* MCV 81.0 MCH 29.5 MCHC 36.4 RDW 16.8 H Plt Count 94 L MPV 9.5 Gran % 79.7 H Lymph % (Auto) 19.4 L Fleming % (Auto) 0.9 L Eos % (Auto) 0.0 L Baso % (Auto) 0.0 Gran # 2.54 Lymph # (Auto) 0.6 L Fleming # (Auto) 0.0 L Eos # (Auto) 0.0 Baso # (Auto) 0.00 Platelet Evaluation Retic Count Haptoglobin PT INR APTT Fibrinogen pCO2 pO2 HCO3 ABG pH ABG Total CO2 ABG O2 Saturation ABG O2 Content ABG Base Excess ABG Hemoglobin ABG Carboxyhemoglobin POC ABG HHb (Measured) ABG Methemoglobin ABG O2 Capacity Hgb O2 Saturation FiO2 Sodium 135 Potassium 2.8 L* D Chloride 98 Carbon Dioxide 18 L Anion Gap 22 H BUN 40 H Creatinine 1.6 H Est GFR ( Amer) 42 Est GFR (Non-Af Amer) 35 POC Glucose (mg/dL) 78 Random Glucose 118 H Calcium 7.5 L Phosphorus 3.6 Magnesium 1.9 Total Bilirubin 4.1 H Direct Bilirubin AST 169 H D ALT 222 H Alkaline Phosphatase 355 H D Lactate Dehydrogenase Total Protein 5.8 Albumin 3.4 Globulin 2.4 Albumin/Globulin Ratio 1.4 Stool Occult Blood Blood Type Antibody Screen Crossmatch BBK History Checked 01/06/18 01/06/18 01/06/18 04:35 04:35 06:00 WBC RBC Hgb Hct MCV MCH MCHC RDW Plt Count MPV Gran % Lymph % (Auto) Fleming % (Auto) Eos % (Auto) Baso % (Auto) Gran # Lymph # (Auto) Fleming # (Auto) Eos # (Auto) Baso # (Auto) Platelet Evaluation Retic Count Haptoglobin PT 18.2 H INR 1.57 APTT 33.6 Fibrinogen 187 L pCO2 30 L pO2 72.0 L HCO3 16.6 L ABG pH 7.35 ABG Total CO2 17.5 L ABG O2 Saturation 98.2 H ABG O2 Content 10.2 L ABG Base Excess -8.2 L ABG Hemoglobin 7.5 L ABG Carboxyhemoglobin 2.1 H POC ABG HHb (Measured) 1.8 ABG Methemoglobin 0.6 ABG O2 Capacity 10.4 L Hgb O2 Saturation 95.5 FiO2 60.0 Sodium Potassium Chloride Carbon Dioxide Anion Gap BUN Creatinine Est GFR ( Amer) Est GFR (Non-Af Amer) POC Glucose (mg/dL) Random Glucose Calcium Phosphorus Magnesium Total Bilirubin Direct Bilirubin AST ALT Alkaline Phosphatase Lactate Dehydrogenase Total Protein Albumin Globulin Albumin/Globulin Ratio Stool Occult Blood Blood Type Antibody Screen Crossmatch BBK History Checked Fingerstick Blood Sugar Results: 81 Review of Systems - Review of Systems Systems not reviewed;Unavailable: Other (Sedated/ Mental Baseline) Assessment/Plan - Assessment and Plan (Free Text) Assessment: 42F with PMH developmental delay, presented to [facility] for [place]/AMS, initially admitted to ICU for HCAP, found to have gram negative bacteremia, progressed to ARDS, hypoxemic respiratory failure. She was stable throughout the day yesterday; did not require support of pressors ; still maintaining pressures on her own, and afebrile at this time. She was transfused 1U pRBC, 1U PLT, 1U FFP. Neuro: -GCS 3 at this time; Heavily sedated -Intubated -On versed drip -Ammonia level normal -CT Head on adm negative -Repeat CT Head read pending -seizure, aspiration and high fall risk precautions -EEG wnl -on keppra 500 IV Q12 -Neurology on board -monitor Cardio: -Off of pressors; HD stable -Hypertensive overnight -Aim for MAP >65 -A-Line in place -Junctional Bradycardia as per cardiology; no specific intervention necessary at this time -IVC vegetation vs thrombus seen on bedside US -Abdominal duplex reordered; UE/LE BL Duplex US ordered. Lungs: -Hypoxemic respiratory acidosis 2/2 ARDS due to pneumonia -Remains intubated, on PRVC mode -BG: pH 7.35// PCO2 30// PO2 72// HCO3 16.6// SO2 98.2 this AM; -PO2 elevated yesterday; FiO2 was decreased; improvements noted above. -CXR 01/06 still showing infiltrations however improving in relation to films from day prior -C/w Cefepime -Continue with HOB elevation> 35 degrees, aspiration precautions. -Continue with protected lung ventilation strategies with TV of 3-6 ml/kg of IBW , plateau pressure less than 35, bronchodilators, keep oxygenation above 90%, pulm toileting -Daily sedation vacation + spontaneous breathing trials Nephro: -LEN -BUN/Cr 40/1.6 <<< 31/1.3 -Light pink urine in nan tubing -Possible oliguria -Stopped D5 Water; -Started Lasix 40 IVP Once -Hypokalemic this Am - 2.8; Will give 80meq -Replace lytes, maintain euvolemia. Continue to monitor. -Avoid nephrotoxic agents -monitor -Nephrology consulted GI: -AST/ALT improving -Alk phos elevated stable -TBili elevated stable -Will resume OGT feeds today -monitor Hepatic Workup: -LFTs worsening again; Tbili elevated; -Will get DBili and do bedside U/S -Pending hemolysis workup - LDH and Haptoglobin -Smooth muscle Ab negative -ANCA screen negative -Alpha1 Antitrypsin negative -Anti Mitochondrial Ab negative -No hepatic thrombosis on duplex US -Patient is cachectic with BMI of 10, concern for chronic malnutrition -CT abd/chest shows severe edema in mesenteric fat, esophagitis and pelvis ascites. The swelling is consistent with severe malnutrition with low albumin; Cholelithiasis w/o cholecystitis appreciated -hepatitis panel is negative -CA-125 wnl -GI prophylaxis as below -GI on consult, Dr. Rizo Heme: -Anemia: -s/p 2u prbc 01/04; 1u prbc 01/05 -h/h 7.6<<<6.5 today -Thrombocytopenia: -Possibly vancomycin induced vs hemolytic/destructive. Will DC vanc and switch to cefepime at this time -PLT 94<<<22 this AM -S/p 1U PLT transfusion 01/05 -INR 1.57<<<2.06; -S/p 2U FFP transfusion 01/05 -Bleeding from central line controlled -Peripheral smear negative for schistocytes, as per discussion with Dr Lentz. -closely monitor : -TVUS unremarkable for ovaries -CA 125 normal Endo: Maintain euglycemia. -c-peptide wnl -TSH WNL ID: -[id number] PNA vs Aspiration PNA -Gram neg bacteremia -On cefepime -CDiff NEGATIVE -Repeat Blood Cx 06/06 12/28 NTD -Blood Cx 05/06 12/25 showed GNR; culture was nonviable -Urine Cx negative -HIV Panel negative -ID Following GI/DVT Ppx: Pepcid IVP, SCDs do not fit Patient was seen, examined, and discussed w/ attending physician Dr. Sage Welch DO PGY1 - Internal Medicine Academic Program Specialist - Pager [phone] - Date & Time Date: 01/06/18 Time: 09:59 <Silver Cazares - Last Filed: 01/06/18 16:53> CCU Objective - Vital Signs / Intake & Output Vital Signs (Last 4 hours): Vital Signs Temp Pulse Resp BP Pulse Ox 01/06/18 14:40 97.5 F L 65 96 01/06/18 14:00 97.3 F L 61 33 H 98 01/06/18 13:00 62 33 H 127/90 100 Intake and Output (Last 8hrs): Intake & Output 01/06/18 01/06/18 01/06/18 06:59 14:59 22:59 Intake Total 1812 40 Output Total 0 Balance 1812 40 Intake: IV 1472 40 D50 900 cefepime 100 keppra 100 plt ph 304 versed 18 Tube Feeding 240 Albumin 100 Output: Urine 0 Urethral (Ann) 0 Other: # Bowel Movements 2 - Medications Active Medications: Active Medications Generic Name Dose Route Start Last Admin Trade Name Freq PRN Reason Stop Dose Admin Albumin Human 12.5 gm 01/06/18 11:41 01/06/18 13:02 Albumin Human 25% (25 Gm/100 Ml) IV 12.5 gm Q4 NASH Administration Bacitracin 1 gm 01/02/18 18:00 01/06/18 13:02 Bacitracin TOP 1 applic TID NASH Administration Famotidine 20 mg 01/05/18 10:45 01/06/18 09:32 Pepcid IVP 20 mg DAILY NASH Administration Levetiracetam 500 mg in 100 mls @ 460 mls/hr 12/27/17 07:57 01/06/18 09:45 Keppra 500mg Ivpb IV 460 mls/hr Q12 NASH Administration Midazolam 100 mg/100ml in NS 100 mg in 100 mls @ 1 mls/hr 01/04/18 17:17 08/20 11:44 Midazolam 100 Mg/100ml In Ns IV 2 mg/hr .Q24H PRN 2 mls/hr Agitation Titration Protocol 1 MG/HR Cefepime HCl 1 gm in 100 mls @ 100 mls/hr 01/05/18 10:00 01/06/18 09:32 Maxipime 1gm IVPB 01/14/18 10:01 100 mls/hr Q12 NASH Administration Protocol Insulin Human Regular 0 units 01/02/18 16:30 01/06/18 11:47 Humulin R Low SC Not Given ACHS NASH Protocol Levalbuterol HCl 1.25 mg 12/31/17 18:28 01/03/18 13:16 Xopenex IH 1.25 mg [id number] PRN Administration Shortness of Breath - Patient Studies Lab Studies: Microbiology Studies 01/02/18 07:00 Blood Culture - Preliminary Blood NO GROWTH AFTER 4 DAYS 01/02/18 06:45 Blood Culture - Preliminary Blood NO GROWTH AFTER 4 DAYS Lab Studies 01/06/18 01/06/18 01/06/18 Range/Units 14:07 10:25 07:48 WBC (4.5-11.0) 10^3/ul RBC (3.5-6.1) 10^6/uL Hgb (12.0-16.0) g/dL Hct (36.0-48.0) % MCV (80.0-105.0) fl MCH (25.0-35.0) pg MCHC (31.0-37.0) g/dl RDW (11.5-14.5) % Plt Count (120.0-450.0) 10^3/uL MPV (7.0-11.0) fl Gran % (50.0-68.0) % Lymph % (Auto) (22.0-35.0) % Fleming % (Auto) (1.0-6.0) % Eos % (Auto) (1.5-5.0) % Baso % (Auto) (0.0-3.0) % Gran # (1.4-6.5) Lymph # (Auto) (1.2-3.4) Fleming # (Auto) (0.1-0.6) Eos # (Auto) (0.0-0.7) Baso # (Auto) (0.0-2.0) K/mm3 Differential Comment PT (9.4-12.5) SECONDS INR APTT (25.1-36.5) Seconds Fibrinogen (200-400) mg/dl pCO2 (35-45) mm/Hg pO2 (80-100) mm/Hg HCO3 (21-28) mmol/L ABG pH (7.35-7.45) ABG Total CO2 (22-28) mmol.L ABG O2 Saturation (95-98) % ABG O2 Content (15-23) ML/dl ABG Base Excess (-2.0-3.0) mmol/L ABG Hemoglobin (11.7-17.4) g/dL ABG Carboxyhemoglobin (0.5-1.5) % POC ABG HHb (Measured) (0-5) % ABG Methemoglobin (0.0-3.0) % ABG O2 Capacity (16-24) mL/dl Hgb O2 Saturation (95.0-98.0) % FiO2 % Sodium (132-148) mmol/L Potassium (3.6-5.0) mmol/L Chloride (98-107) mmol/L Carbon Dioxide (21-33) mmol/L Anion Gap (10-20) BUN (7-21) mg/dL Creatinine (0.7-1.2) mg/dl Est GFR ( Amer) Est GFR (Non-Af Amer) POC Glucose (mg/dL) 74 102 81 (65-110) mg/dL Random Glucose (70-110) mg/dL Calcium (8.4-10.5) mg/dL Phosphorus (2.5-4.5) mg/dL Magnesium (1.7-2.2) mg/dL Total Bilirubin (0.2-1.3) mg/dL AST (14-36) U/L ALT (7-56) U/L Alkaline Phosphatase (38-126) U/L Total Protein (5.8-8.3) g/dL Albumin (3.0-4.8) g/dL Globulin gm/dL Albumin/Globulin Ratio (1.1-1.8) Stool Occult Blood (NEGATIVE) Blood Type Antibody Screen Crossmatch BBK History Checked 01/06/18 01/06/18 01/06/18 Range/Units 06:00 05:35 04:35 WBC (4.5-11.0) 10^3/ul RBC (3.5-6.1) 10^6/uL Hgb (12.0-16.0) g/dL Hct (36.0-48.0) % MCV (80.0-105.0) fl MCH (25.0-35.0) pg MCHC (31.0-37.0) g/dl RDW (11.5-14.5) % Plt Count (120.0-450.0) 10^3/uL MPV (7.0-11.0) fl Gran % (50.0-68.0) % Lymph % (Auto) (22.0-35.0) % Fleming % (Auto) (1.0-6.0) % Eos % (Auto) (1.5-5.0) % Baso % (Auto) (0.0-3.0) % Gran # (1.4-6.5) Lymph # (Auto) (1.2-3.4) Fleming # (Auto) (0.1-0.6) Eos # (Auto) (0.0-0.7) Baso # (Auto) (0.0-2.0) K/mm3 Differential Comment PT 18.2 H (9.4-12.5) SECONDS INR 1.57 APTT 33.6 (25.1-36.5) Seconds Fibrinogen (200-400) mg/dl pCO2 30 L (35-45) mm/Hg pO2 72.0 L (80-100) mm/Hg HCO3 16.6 L (21-28) mmol/L ABG pH 7.35 (7.35-7.45) ABG Total CO2 17.5 L (22-28) mmol.L ABG O2 Saturation 98.2 H (95-98) % ABG O2 Content 10.2 L (15-23) ML/dl ABG Base Excess -8.2 L (-2.0-3.0) mmol/L ABG Hemoglobin 7.5 L (11.7-17.4) g/dL ABG Carboxyhemoglobin 2.1 H (0.5-1.5) % POC ABG HHb (Measured) 1.8 (0-5) % ABG Methemoglobin 0.6 (0.0-3.0) % ABG O2 Capacity 10.4 L (16-24) mL/dl Hgb O2 Saturation 95.5 (95.0-98.0) % FiO2 60.0 % Sodium (132-148) mmol/L Potassium (3.6-5.0) mmol/L Chloride (98-107) mmol/L Carbon Dioxide (21-33) mmol/L Anion Gap (10-20) BUN (7-21) mg/dL Creatinine (0.7-1.2) mg/dl Est GFR ( Amer) Est GFR (Non-Af Amer) POC Glucose (mg/dL) 137 H (65-110) mg/dL Random Glucose (70-110) mg/dL Calcium (8.4-10.5) mg/dL Phosphorus (2.5-4.5) mg/dL Magnesium (1.7-2.2) mg/dL Total Bilirubin (0.2-1.3) mg/dL AST (14-36) U/L ALT (7-56) U/L Alkaline Phosphatase (38-126) U/L Total Protein (5.8-8.3) g/dL Albumin (3.0-4.8) g/dL Globulin gm/dL Albumin/Globulin Ratio (1.1-1.8) Stool Occult Blood (NEGATIVE) Blood Type Antibody Screen Crossmatch BBK History Checked 01/06/18 01/06/18 01/06/18 Range/Units 04:35 04:35 04:35 WBC 3.2 L D (4.5-11.0) 10^3/ul RBC 2.58 L (3.5-6.1) 10^6/uL Hgb 7.6 L (12.0-16.0) g/dL Hct 20.9 L* (36.0-48.0) % MCV 81.0 (80.0-105.0) fl MCH 29.5 (25.0-35.0) pg MCHC 36.4 (31.0-37.0) g/dl RDW 16.8 H (11.5-14.5) % Plt Count 94 L (120.0-450.0) 10^3/uL MPV 9.5 (7.0-11.0) fl Gran % 79.7 H (50.0-68.0) % Lymph % (Auto) 19.4 L (22.0-35.0) % Fleming % (Auto) 0.9 L (1.0-6.0) % Eos % (Auto) 0.0 L (1.5-5.0) % Baso % (Auto) 0.0 (0.0-3.0) % Gran # 2.54 (1.4-6.5) Lymph # (Auto) 0.6 L (1.2-3.4) Fleming # (Auto) 0.0 L (0.1-0.6) Eos # (Auto) 0.0 (0.0-0.7) Baso # (Auto) 0.00 (0.0-2.0) K/mm3 Differential Comment PT (9.4-12.5) SECONDS INR APTT (25.1-36.5) Seconds Fibrinogen 187 L (200-400) mg/dl pCO2 (35-45) mm/Hg pO2 (80-100) mm/Hg HCO3 (21-28) mmol/L ABG pH (7.35-7.45) ABG Total CO2 (22-28) mmol.L ABG O2 Saturation (95-98) % ABG O2 Content (15-23) ML/dl ABG Base Excess (-2.0-3.0) mmol/L ABG Hemoglobin (11.7-17.4) g/dL ABG Carboxyhemoglobin (0.5-1.5) % POC ABG HHb (Measured) (0-5) % ABG Methemoglobin (0.0-3.0) % ABG O2 Capacity (16-24) mL/dl Hgb O2 Saturation (95.0-98.0) % FiO2 % Sodium 135 (132-148) mmol/L Potassium 2.8 L* D (3.6-5.0) mmol/L Chloride 98 (98-107) mmol/L Carbon Dioxide 18 L (21-33) mmol/L Anion Gap 22 H (10-20) BUN 40 H (7-21) mg/dL Creatinine 1.6 H (0.7-1.2) mg/dl Est GFR ( Amer) 42 Est GFR (Non-Af Amer) 35 POC Glucose (mg/dL) (65-110) mg/dL Random Glucose 118 H (70-110) mg/dL Calcium 7.5 L (8.4-10.5) mg/dL Phosphorus 3.6 (2.5-4.5) mg/dL Magnesium 1.9 (1.7-2.2) mg/dL Total Bilirubin 4.1 H (0.2-1.3) mg/dL AST 169 H D (14-36) U/L ALT 222 H (7-56) U/L Alkaline Phosphatase 355 H D (38-126) U/L Total Protein 5.8 (5.8-8.3) g/dL Albumin 3.4 (3.0-4.8) g/dL Globulin 2.4 gm/dL Albumin/Globulin Ratio 1.4 (1.1-1.8) Stool Occult Blood (NEGATIVE) Blood Type Antibody Screen Crossmatch BBK History Checked 01/06/18 01/06/18 01/05/18 Range/Units 04:02 01:56 23:43 WBC (4.5-11.0) 10^3/ul RBC (3.5-6.1) 10^6/uL Hgb (12.0-16.0) g/dL Hct (36.0-48.0) % MCV (80.0-105.0) fl MCH (25.0-35.0) pg MCHC (31.0-37.0) g/dl RDW (11.5-14.5) % Plt Count (120.0-450.0) 10^3/uL MPV (7.0-11.0) fl Gran % (50.0-68.0) % Lymph % (Auto) (22.0-35.0) % Fleming % (Auto) (1.0-6.0) % Eos % (Auto) (1.5-5.0) % Baso % (Auto) (0.0-3.0) % Gran # (1.4-6.5) Lymph # (Auto) (1.2-3.4) Fleming # (Auto) (0.1-0.6) Eos # (Auto) (0.0-0.7) Baso # (Auto) (0.0-2.0) K/mm3 Differential Comment PT (9.4-12.5) SECONDS INR APTT (25.1-36.5) Seconds Fibrinogen (200-400) mg/dl pCO2 (35-45) mm/Hg pO2 (80-100) mm/Hg HCO3 (21-28) mmol/L ABG pH (7.35-7.45) ABG Total CO2 (22-28) mmol.L ABG O2 Saturation (95-98) % ABG O2 Content (15-23) ML/dl ABG Base Excess (-2.0-3.0) mmol/L ABG Hemoglobin (11.7-17.4) g/dL ABG Carboxyhemoglobin (0.5-1.5) % POC ABG HHb (Measured) (0-5) % ABG Methemoglobin (0.0-3.0) % ABG O2 Capacity (16-24) mL/dl Hgb O2 Saturation (95.0-98.0) % FiO2 % Sodium (132-148) mmol/L Potassium (3.6-5.0) mmol/L Chloride (98-107) mmol/L Carbon Dioxide (21-33) mmol/L Anion Gap (10-20) BUN (7-21) mg/dL Creatinine (0.7-1.2) mg/dl Est GFR ( Amer) Est GFR (Non-Af Amer) POC Glucose (mg/dL) 123 H 139 H 99 (65-110) mg/dL Random Glucose (70-110) mg/dL Calcium (8.4-10.5) mg/dL Phosphorus (2.5-4.5) mg/dL Magnesium (1.7-2.2) mg/dL Total Bilirubin (0.2-1.3) mg/dL AST (14-36) U/L ALT (7-56) U/L Alkaline Phosphatase (38-126) U/L Total Protein (5.8-8.3) g/dL Albumin (3.0-4.8) g/dL Globulin gm/dL Albumin/Globulin Ratio (1.1-1.8) Stool Occult Blood (NEGATIVE) Blood Type Antibody Screen Crossmatch BBK History Checked 01/05/18 01/05/18 01/05/18 Range/Units 21:51 20:10 18:53 WBC (4.5-11.0) 10^3/ul RBC (3.5-6.1) 10^6/uL Hgb (12.0-16.0) g/dL Hct (36.0-48.0) % MCV (80.0-105.0) fl MCH (25.0-35.0) pg MCHC (31.0-37.0) g/dl RDW (11.5-14.5) % Plt Count (120.0-450.0) 10^3/uL MPV (7.0-11.0) fl Gran % (50.0-68.0) % Lymph % (Auto) (22.0-35.0) % Fleming % (Auto) (1.0-6.0) % Eos % (Auto) (1.5-5.0) % Baso % (Auto) (0.0-3.0) % Gran # (1.4-6.5) Lymph # (Auto) (1.2-3.4) Fleming # (Auto) (0.1-0.6) Eos # (Auto) (0.0-0.7) Baso # (Auto) (0.0-2.0) K/mm3 Differential Comment PT 19.4 H (9.4-12.5) SECONDS INR 1.68 APTT (25.1-36.5) Seconds Fibrinogen (200-400) mg/dl pCO2 (35-45) mm/Hg pO2 (80-100) mm/Hg HCO3 (21-28) mmol/L ABG pH (7.35-7.45) ABG Total CO2 (22-28) mmol.L ABG O2 Saturation (95-98) % ABG O2 Content (15-23) ML/dl ABG Base Excess (-2.0-3.0) mmol/L ABG Hemoglobin (11.7-17.4) g/dL ABG Carboxyhemoglobin (0.5-1.5) % POC ABG HHb (Measured) (0-5) % ABG Methemoglobin (0.0-3.0) % ABG O2 Capacity (16-24) mL/dl Hgb O2 Saturation (95.0-98.0) % FiO2 % Sodium (132-148) mmol/L Potassium (3.6-5.0) mmol/L Chloride (98-107) mmol/L Carbon Dioxide (21-33) mmol/L Anion Gap (10-20) BUN (7-21) mg/dL Creatinine (0.7-1.2) mg/dl Est GFR ( Amer) Est GFR (Non-Af Amer) POC Glucose (mg/dL) 78 83 (65-110) mg/dL Random Glucose (70-110) mg/dL Calcium (8.4-10.5) mg/dL Phosphorus (2.5-4.5) mg/dL Magnesium (1.7-2.2) mg/dL Total Bilirubin (0.2-1.3) mg/dL AST (14-36) U/L ALT (7-56) U/L Alkaline Phosphatase (38-126) U/L Total Protein (5.8-8.3) g/dL Albumin (3.0-4.8) g/dL Globulin gm/dL Albumin/Globulin Ratio (1.1-1.8) Stool Occult Blood (NEGATIVE) Blood Type Antibody Screen Crossmatch BBK History Checked 01/05/18 01/05/18 01/05/18 Range/Units 18:50 18:29 06:00 WBC (4.5-11.0) 10^3/ul RBC (3.5-6.1) 10^6/uL Hgb (12.0-16.0) g/dL Hct (36.0-48.0) % MCV (80.0-105.0) fl MCH (25.0-35.0) pg MCHC (31.0-37.0) g/dl RDW (11.5-14.5) % Plt Count (120.0-450.0) 10^3/uL MPV (7.0-11.0) fl Gran % (50.0-68.0) % Lymph % (Auto) (22.0-35.0) % Fleming % (Auto) (1.0-6.0) % Eos % (Auto) (1.5-5.0) % Baso % (Auto) (0.0-3.0) % Gran # (1.4-6.5) Lymph # (Auto) (1.2-3.4) Fleming # (Auto) (0.1-0.6) Eos # (Auto) (0.0-0.7) Baso # (Auto) (0.0-2.0) K/mm3 Differential Comment Cancelled PT (9.4-12.5) SECONDS INR APTT (25.1-36.5) Seconds Fibrinogen (200-400) mg/dl pCO2 (35-45) mm/Hg pO2 (80-100) mm/Hg HCO3 (21-28) mmol/L ABG pH (7.35-7.45) ABG Total CO2 (22-28) mmol.L ABG O2 Saturation (95-98) % ABG O2 Content (15-23) ML/dl ABG Base Excess (-2.0-3.0) mmol/L ABG Hemoglobin (11.7-17.4) g/dL ABG Carboxyhemoglobin (0.5-1.5) % POC ABG HHb (Measured) (0-5) % ABG Methemoglobin (0.0-3.0) % ABG O2 Capacity (16-24) mL/dl Hgb O2 Saturation (95.0-98.0) % FiO2 % Sodium (132-148) mmol/L Potassium (3.6-5.0) mmol/L Chloride (98-107) mmol/L Carbon Dioxide (21-33) mmol/L Anion Gap (10-20) BUN (7-21) mg/dL Creatinine (0.7-1.2) mg/dl Est GFR ( Amer) Est GFR (Non-Af Amer) POC Glucose (mg/dL) 98 (65-110) mg/dL Random Glucose (70-110) mg/dL Calcium (8.4-10.5) mg/dL Phosphorus (2.5-4.5) mg/dL Magnesium (1.7-2.2) mg/dL Total Bilirubin (0.2-1.3) mg/dL AST (14-36) U/L ALT (7-56) U/L Alkaline Phosphatase (38-126) U/L Total Protein (5.8-8.3) g/dL Albumin (3.0-4.8) g/dL Globulin gm/dL Albumin/Globulin Ratio (1.1-1.8) Stool Occult Blood Negative (NEGATIVE) Blood Type Antibody Screen Crossmatch BBK History Checked 01/04/18 Range/Units 11:00 WBC (4.5-11.0) 10^3/ul RBC (3.5-6.1) 10^6/uL Hgb (12.0-16.0) g/dL Hct (36.0-48.0) % MCV (80.0-105.0) fl MCH (25.0-35.0) pg MCHC (31.0-37.0) g/dl RDW (11.5-14.5) % Plt Count (120.0-450.0) 10^3/uL MPV (7.0-11.0) fl Gran % (50.0-68.0) % Lymph % (Auto) (22.0-35.0) % Fleming % (Auto) (1.0-6.0) % Eos % (Auto) (1.5-5.0) % Baso % (Auto) (0.0-3.0) % Gran # (1.4-6.5) Lymph # (Auto) (1.2-3.4) Fleming # (Auto) (0.1-0.6) Eos # (Auto) (0.0-0.7) Baso # (Auto) (0.0-2.0) K/mm3 Differential Comment PT (9.4-12.5) SECONDS INR APTT (25.1-36.5) Seconds Fibrinogen (200-400) mg/dl pCO2 (35-45) mm/Hg pO2 (80-100) mm/Hg HCO3 (21-28) mmol/L ABG pH (7.35-7.45) ABG Total CO2 (22-28) mmol.L ABG O2 Saturation (95-98) % ABG O2 Content (15-23) ML/dl ABG Base Excess (-2.0-3.0) mmol/L ABG Hemoglobin (11.7-17.4) g/dL ABG Carboxyhemoglobin (0.5-1.5) % POC ABG HHb (Measured) (0-5) % ABG Methemoglobin (0.0-3.0) % ABG O2 Capacity (16-24) mL/dl Hgb O2 Saturation (95.0-98.0) % FiO2 % Sodium (132-148) mmol/L Potassium (3.6-5.0) mmol/L Chloride (98-107) mmol/L Carbon Dioxide (21-33) mmol/L Anion Gap (10-20) BUN (7-21) mg/dL Creatinine (0.7-1.2) mg/dl Est GFR ( Amer) Est GFR (Non-Af Amer) POC Glucose (mg/dL) (65-110) mg/dL Random Glucose (70-110) mg/dL Calcium (8.4-10.5) mg/dL Phosphorus (2.5-4.5) mg/dL Magnesium (1.7-2.2) mg/dL Total Bilirubin (0.2-1.3) mg/dL AST (14-36) U/L ALT (7-56) U/L Alkaline Phosphatase (38-126) U/L Total Protein (5.8-8.3) g/dL Albumin (3.0-4.8) g/dL Globulin gm/dL Albumin/Globulin Ratio (1.1-1.8) Stool Occult Blood (NEGATIVE) Blood Type A NEGATIVE Antibody Screen Negative Crossmatch See Detail BBK History Checked Patient has bt Laboratory Results - last 24 hr 01/04/18 01/05/18 01/05/18 11:00 06:00 18:29 WBC RBC Hgb Hct MCV MCH MCHC RDW Plt Count MPV Gran % Lymph % (Auto) Fleming % (Auto) Eos % (Auto) Baso % (Auto) Gran # Lymph # (Auto) Fleming # (Auto) Eos # (Auto) Baso # (Auto) Differential Comment Cancelled PT INR APTT Fibrinogen pCO2 pO2 HCO3 ABG pH ABG Total CO2 ABG O2 Saturation ABG O2 Content ABG Base Excess ABG Hemoglobin ABG Carboxyhemoglobin POC ABG HHb (Measured) ABG Methemoglobin ABG O2 Capacity Hgb O2 Saturation FiO2 Sodium Potassium Chloride Carbon Dioxide Anion Gap BUN Creatinine Est GFR ( Amer) Est GFR (Non-Af Amer) POC Glucose (mg/dL) 98 Random Glucose Calcium Phosphorus Magnesium Total Bilirubin AST ALT Alkaline Phosphatase Total Protein Albumin Globulin Albumin/Globulin Ratio Stool Occult Blood Blood Type A NEGATIVE Antibody Screen Negative Crossmatch See Detail BBK History Checked Patient has bt 01/05/18 01/05/18 01/05/18 18:50 18:53 20:10 WBC RBC Hgb Hct MCV MCH MCHC RDW Plt Count MPV Gran % Lymph % (Auto) Fleming % (Auto) Eos % (Auto) Baso % (Auto) Gran # Lymph # (Auto) Fleming # (Auto) Eos # (Auto) Baso # (Auto) Differential Comment PT 19.4 H INR 1.68 APTT Fibrinogen pCO2 pO2 HCO3 ABG pH ABG Total CO2 ABG O2 Saturation ABG O2 Content ABG Base Excess ABG Hemoglobin ABG Carboxyhemoglobin POC ABG HHb (Measured) ABG Methemoglobin ABG O2 Capacity Hgb O2 Saturation FiO2 Sodium Potassium Chloride Carbon Dioxide Anion Gap BUN Creatinine Est GFR ( Amer) Est GFR (Non-Af Amer) POC Glucose (mg/dL) 83 Random Glucose Calcium Phosphorus Magnesium Total Bilirubin AST ALT Alkaline Phosphatase Total Protein Albumin Globulin Albumin/Globulin Ratio Stool Occult Blood Negative Blood Type Antibody Screen Crossmatch BBK History Checked 01/05/18 01/05/1801/06/18 21:51 23:43 01:56 WBC RBC Hgb Hct MCV MCH MCHC RDW Plt Count MPV Gran % Lymph % (Auto) Fleming % (Auto) Eos % (Auto) Baso % (Auto) Gran # Lymph # (Auto) Fleming # (Auto) Eos # (Auto) Baso # (Auto) Differential Comment PT INR APTT Fibrinogen pCO2 pO2 HCO3 ABG pH ABG Total CO2 ABG O2 Saturation ABG O2 Content ABG Base Excess ABG Hemoglobin ABG Carboxyhemoglobin POC ABG HHb (Measured) ABG Methemoglobin ABG O2 Capacity Hgb O2 Saturation FiO2 Sodium Potassium Chloride Carbon Dioxide Anion Gap BUN Creatinine Est GFR ( Amer) Est GFR (Non-Af Amer) POC Glucose (mg/dL) 78 99 139 H Random Glucose Calcium Phosphorus Magnesium Total Bilirubin AST ALT Alkaline Phosphatase Total Protein Albumin Globulin Albumin/Globulin Ratio Stool Occult Blood Blood Type Antibody Screen Crossmatch BBK History Checked 01/06/18 01/06/18 01/06/18 04:02 04:35 04:35 WBC 3.2 L D RBC 2.58 L Hgb 7.6 L Hct 20.9 L* MCV 81.0 MCH 29.5 MCHC 36.4 RDW 16.8 H Plt Count 94 L MPV 9.5 Gran % 79.7 H Lymph % (Auto) 19.4 L Fleming % (Auto) 0.9 L Eos % (Auto) 0.0 L Baso % (Auto) 0.0 Gran # 2.54 Lymph # (Auto) 0.6 L Fleming # (Auto) 0.0 L Eos # (Auto) 0.0 Baso # (Auto) 0.00 Differential Comment PT INR APTT Fibrinogen pCO2 pO2 HCO3 ABG pH ABG Total CO2 ABG O2 Saturation ABG O2 Content ABG Base Excess ABG Hemoglobin ABG Carboxyhemoglobin POC ABG HHb (Measured) ABG Methemoglobin ABG O2 Capacity Hgb O2 Saturation FiO2 Sodium 135 Potassium 2.8 L* D Chloride 98 Carbon Dioxide 18 L Anion Gap 22 H BUN 40 H Creatinine 1.6 H Est GFR ( Amer) 42 Est GFR (Non-Af Amer) 35 POC Glucose (mg/dL) 123 H Random Glucose 118 H Calcium 7.5 L Phosphorus 3.6 Magnesium 1.9 Total Bilirubin 4.1 H AST 169 H D ALT 222 H Alkaline Phosphatase 355 H D Total Protein 5.8 Albumin 3.4 Globulin 2.4 Albumin/Globulin Ratio 1.4 Stool Occult Blood Blood Type Antibody Screen Crossmatch BBK History Checked 01/06/18 01/06/18 01/06/18 04:35 04:35 05:35 WBC RBC Hgb Hct MCV MCH MCHC RDW Plt Count MPV Gran % Lymph % (Auto) Fleming % (Auto) Eos % (Auto) Baso % (Auto) Gran # Lymph # (Auto) Fleming # (Auto) Eos # (Auto) Baso # (Auto) Differential Comment PT 18.2 H INR 1.57 APTT 33.6 Fibrinogen 187 L pCO2 pO2 HCO3 ABG pH ABG Total CO2 ABG O2 Saturation ABG O2 Content ABG Base Excess ABG Hemoglobin ABG Carboxyhemoglobin POC ABG HHb (Measured) ABG Methemoglobin ABG O2 Capacity Hgb O2 Saturation FiO2 Sodium Potassium Chloride Carbon Dioxide Anion Gap BUN Creatinine Est GFR ( Amer) Est GFR (Non-Af Amer) POC Glucose (mg/dL) 137 H Random Glucose Calcium Phosphorus Magnesium Total Bilirubin AST ALT Alkaline Phosphatase Total Protein Albumin Globulin Albumin/Globulin Ratio Stool Occult Blood Blood Type Antibody Screen Crossmatch BBK History Checked 01/06/18 01/06/18 01/06/18 06:00 07:48 10:25 WBC RBC Hgb Hct MCV MCH MCHC RDW Plt Count MPV Gran % Lymph % (Auto) Fleming % (Auto) Eos % (Auto) Baso % (Auto) Gran # Lymph # (Auto) Fleming # (Auto) Eos # (Auto) Baso # (Auto) Differential Comment PT INR APTT Fibrinogen pCO2 30 L pO2 72.0 L HCO3 16.6 L ABG pH 7.35 ABG Total CO2 17.5 L ABG O2 Saturation 98.2 H ABG O2 Content 10.2 L ABG Base Excess -8.2 L ABG Hemoglobin 7.5 L ABG Carboxyhemoglobin 2.1 H POC ABG HHb (Measured) 1.8 ABG Methemoglobin 0.6 ABG O2 Capacity 10.4 L Hgb O2 Saturation 95.5 FiO2 60.0 Sodium Potassium Chloride Carbon Dioxide Anion Gap BUN Creatinine Est GFR ( Amer) Est GFR (Non-Af Amer) POC Glucose (mg/dL) 81 102 Random Glucose Calcium Phosphorus Magnesium Total Bilirubin AST ALT Alkaline Phosphatase Total Protein Albumin Globulin Albumin/Globulin Ratio Stool Occult Blood Blood Type Antibody Screen Crossmatch BBK History Checked 01/06/18 14:07 WBC RBC Hgb Hct MCV MCH MCHC RDW Plt Count MPV Gran % Lymph % (Auto) Fleming % (Auto) Eos % (Auto) Baso % (Auto) Gran # Lymph # (Auto) Fleming # (Auto) Eos # (Auto) Baso # (Auto) Differential Comment PT INR APTT Fibrinogen pCO2 pO2 HCO3 ABG pH ABG Total CO2 ABG O2 Saturation ABG O2 Content ABG Base Excess ABG Hemoglobin ABG Carboxyhemoglobin POC ABG HHb (Measured) ABG Methemoglobin ABG O2 Capacity Hgb O2 Saturation FiO2 Sodium Potassium Chloride Carbon Dioxide Anion Gap BUN Creatinine Est GFR ( Amer) Est GFR (Non-Af Amer) POC Glucose (mg/dL) 74 Random Glucose Calcium Phosphorus Magnesium Total Bilirubin AST ALT Alkaline Phosphatase Total Protein Albumin Globulin Albumin/Globulin Ratio Stool Occult Blood Blood Type Antibody Screen Crossmatch BBK History Checked Attending/Attestation - Attestation I have personally seen and examined this patient.: Yes I have fully participated in the care of the patient.: Yes I have reviewed all pertinent clinical information: Yes Notes (Text): 01/06/18 16:[address] Cazares note
[2018-01-06] MEDS: Cefepime 1gm in NS 100ml 1 GM/100 ML BAG IVPB SCH ×2 (09:32→23:04)
[2018-01-06] MEDS: Bacitracin Ointment 30 GM TUBE TOP SCH ×3 (09:36→17:14)
[2018-01-06] MEDS: levETIRAcetam 500mg IVPB 500 MG/100 ML BAG IV SCH ×2 (09:45→23:04)
--- NOTE | 2018-01-06 11:37 | PN ---
Copied To: Silver Cazares MD Attending MD: Silver Cazares MD DATE: 01/06/2018 SUBJECTIVE: The patient was seen and examined at bedside. She is on Versed 2 mg/hour, which was just stopped for sedation vacation. The patient tolerates enteral nutrition at 20 mL/hr very well. It will be increased to 35 mL/hr gradually. PHYSICAL EXAMINATION: VITAL SIGNS: The patient is on PRVC 300/16/10/60%. In that setting, oxygen saturation 95%, heart rate 67, blood pressure 123/87, temperature 97.7, blood pressure 148/95. The patient is off of pressors. ENT: Head and neck atraumatic. LUNGS: Clear to auscultation bilaterally. HEART: Regular rate and rhythm. S1, S2 normal. ABDOMEN: Soft, nontender and nondistended. MUSCULOSKELETAL: Contracture at baseline. SKIN: Moist. PSYCH: The patient is sedated. LABORATORY DATA: WBC 3.2; hemoglobin 7.6, up from 6.5; platelet count 94. Sodium 135; potassium 2.8 (aggressive supplementation of potassium is ongoing); chloride 98; BUN 40; creatinine 1.6, up from 1.3; AST 169; ALT 222; total bilirubin 4.1; albumin 3.4. ANCA screen is negative. Antismooth muscle antibody is negative. Antimitochondrial antibody is negative. Hepatitis profile is negative. HIV is negative. Ceruloplasmin is within normal limits. MEDICATIONS: Albumin 25% every 4 hours, D5 at 100 mL/hour, Pepcid, Keppra, cefepime, potassium supplementation, Versed. ASSESSMENT AND PLAN: This is a 42-year-old lady with history of severe sepsis secondary to healthcare-associated pneumonia complicated by multiorgan system failure including gram-negative bacteremia, now cleared. The patient is intubated with progressive liver and renal failure. 1. Neurology: The patient is sedated. However, Versed was stopped to reassess mental status as part of daily sedation vacation. If will not wake up within reasonable period of time, we will consider EEG and CT head to rule out nonconvulsive status and intracranial pathology. 2. Pulmonary: The patient's chest x-ray is substantially improved; however, still requires 60% of FiO2 and PEEP 10. We will continue with protective lung ventilation strategy, tidal volume 4-8 mL per predicted body weight and plateau pressure less than 30 cm of water. Head of bed elevated more than 35 degrees. Oral hygiene. Deep venous thrombosis, gastrointestinal prophylaxes as a part of VAP bundle. Sputum culture showed only yeast and oral jos. Daily sedation vacation and weaning trials once FiO2 down below 50% and PEEP closer to 5. Once potassium is supplemented, conservative fluid management with diuresis. Conservative oxygen management. The patient did not tolerate going down on FiO2 any further. Chest x-ray showed right lower lobe infiltrate and some infiltrate versus congestion in left upper lobe as well. 3. Infectious Disease: The patient has severe sepsis due to healthcare-associated pneumonia with now resolved gram-negative bacteremia complicated by multiorgan system failure with progressive renal and liver failure. The patient is on cefepime. Infectious Disease Service is following her as well. Procalcitonin level from 12/25/2017 is 29.2. Hepatitis profile and human immunodeficiency virus serology is negative. 4. Gastrointestinal: The patient tolerates trophic nutrition pretty well. We will start going up on enteral nutrition to avoid gastrointestinal translocation of bacteria. The patient is off of pressors. The patient does have liver failure with rising total bilirubin. Based on the imaging study, the patient has liver cirrhosis, fairly extensive search for potential etiology had been conducted. Ceruloplasmin, alpha 1-antitrypsin, hepatitis profile, antismooth muscle antibodies and antimitochondrial antibodies all are negative. ANCA screen is negative as well. GI service is on board. 5. Renal: The patient has progressive renal failure. We will do bladder ultrasound and flush Jimenez catheter to make sure there is no obstructive uropathy. It is likely however that renal failure is ATN, part of multiorgan system dysfunction secondary to severe sepsis as such- part of bigger picture. The patient is on albumin and blood pressure is maintained well above 65, but within normal limits. We will continue to avoid hyperchloremia. We will try to avoid nephrotoxic medication, but not at expense of treating underlying disease. We will try to maintain euvolemia and euglycemia. We will get Renal consult and defer decision about [employer] to them. 6. Endocrine: We will maintain blood glucose within 140 to 180 according to NICE-SUGAR trial. 7. Hematology: The patient acquires blood products to maintain hemoglobin and platelets as well as INR within acceptable/safe limits. Most likely, pancytopenia relates to bone marrow suppression by severe sepsis and liver dysfunction. 8. The patient's DNR status is noted. Prognosis is very concerning in this patient with severe sepsis and ensuing multiorgan system failure with underlying liver cirrhosis. We will continue to target euvolemia, euglycemia, normothermia and oxygen saturation more than 90%. ccm time 40 min Silver Cazares MD JERMAINE
--- NOTE | 2018-01-06 12:49 | RAD ---
Date of service: 01/05/2018 HISTORY: intubated COMPARISON: 01/04/2018 FINDINGS: LUNGS: Extensive bilateral ill-defined pulmonary opacity essentially unchanged from prior examination. Examination limited due to steep oblique positioning of patient. PLEURA: Left hemidiaphragm silhouetted at left costophrenic angle blunted suggestive of possible left pleural effusion. No evidence of right pleural effusion. No pneumothorax. CARDIOVASCULAR: Grossly normal heart size. ET tube approximately 2 cm above tracheal rm. Nasogastric tube and right IJ multi lumen central venous catheter are unchanged. OSSEOUS STRUCTURES: No significant abnormalities. VISUALIZED UPPER ABDOMEN: Normal. OTHER FINDINGS: None. IMPRESSION: Persistent diffuse bilateral pulmonary opacity. Pneumonia versus pulmonary edema. Lines and tubes unchanged. Possible small left pleural effusion.
--- NOTE | 2018-01-06 12:57 | CP.PCM.CON ---
History of Present Illness - History of Present Illness History of Present Illness: Nephrology Consultation Note: Assessment: critical Acute Kidney Injury (N17.9) likely multifactorial: possibly due to ATN (septic shock), medications lactic acidosis, hypokalemia, mild hyponatremia septic shock with pneumonia Anasarca with mod to sev pHTN pancytopenia and coagulopathy, hyperbilirubumienmia developmental delay, severely malnourished state, seizure Plan No acute need for renal replacement therapy at this time but may need soon, will need close follow up Hypertension control with meds as ordered. Maintain hemodynamics stable. Avoid hypotension. Patient not on ACEI/ARB due to recent LEN Monitor Input/Output, daily weights and renal function with basic metabolic panel appears fluid overloaded on exam, favor diuresing with a trial of lasix 40-80 mg consider to d/c IVF or lower rate and change to isotonic fluids IV thiamine supplementation heme eval. supplement lytes as needed Check urine analysis, spot protein/creatinine, albumin/creatinine ratio, urine for eosinophils. Dose meds/antibiotics for reduced GFR. Avoid fleets enema/magnesium based laxatives. Avoid nephrotoxins/NSAIDs/ iodinated contrast (unless needed emergently). Glycemic control Further work up/management as per primary team Thanks for allowing me to participate in care of your patient. Will follow patient with you. Please call if any Qs. d/w team Dr Lyle Terry Office: [phone] Chief Complaint; unable Reason for consult: Acute Kidney Injury HPI: Pt is a 42 F with hx of developmental delay, malnourished state presented initially with complaints of seizures and hospital course was complicated with septic shock with pneumonia, acute respi failure, coag abnormalities with anemia /low plat counts BP high now. was on pressors earlier. had underwent CT with contrast imaging on 12/30/17. had received antibiotics including vanco ROS: unable Physical Examination: General Appearance: ill appearing, intubated, malnourished Vitals reviewed and noted as below Head; Atraumatic, normocephalic ENT: intubated/sedated EYES: Pupils are equal, round Sclera is icteric. Neck; supple no lymphadenopathy, no thyromegaly or bruit Lungs: Increased respiratory rate/effort. Breath sounds bilateral equal and clear anteriorly Heart: Normal rate. s1s2 normal. No rub or gallop. Extremities: 2+ edema. No varicose veins Neurological: Patient is sedated Skin: Warm and dry. Normal turgor. No rash. Palpitation: Normal elasticity for age Abdomen: Abdomen is soft/distended. Bowel sounds +. There is no abdominal tenderness, no guarding/rigidity no organomegaly Psych: unable MSK: no joint tenderness or swelling. Digits and nails normal, no deformity : kidney or bladder not palpable. has ann Labs/imaging reviewed. Past medical history, past surgical history, family history, social history, allergy reviewed and noted as below Family hx: no hx of CKD. Rest non-contributory work up: CT anasarca, renal unremarkable ANCA/Hep B and C neg TSAT 32% Ferritin 182 mod to sev pHTN on echo Past Patient History - Past Social History Smoking Status: Never Smoked - CARDIAC Hx Pacemaker: No - PULMONARY Hx Respiratory Disorders: No - NEUROLOGICAL Hx Neurological Disorder: Yes Other/Comment: developmental delay - HEENT Hx HEENT Problems: No - RENAL Hx Chronic Kidney Disease: No - ENDOCRINE/METABOLIC Hx Endocrine Disorders: No - HEMATOLOGICAL/ONCOLOGICAL Hx Cancer: No - INTEGUMENTARY Hx Dermatological Problems: No - MUSCULOSKELETAL/RHEUMATOLOGICAL Hx Musculoskeletal Disorders: No - GASTROINTESTINAL Hx Gastrointestinal Disorders: No - GENITOURINARY/GYNECOLOGICAL Hx Genitourinary Disorders: No - PSYCHIATRIC Hx Psychophysiologic Disorder: Yes Hx Substance Use: No Other/Comment: Developmental delay - SURGICAL HISTORY Hx Mastectomy: No Meds Allergies/Adverse Reactions: Allergies Allergy/AdvReac Type Severity Reaction Status Date / Time No Known Allergies Allergy Verified 12/25/17 21:52 - Medications Medications: Current Medications Albumin Human (Albumin Human 25% (25 Gm/100 Ml)) 12.5 gm IV Q4 [facility] Bacitracin (Bacitracin) 1 gm TOP TID [facility] Last Admin: 01/06/18 09:36 Dose: 1 applic Famotidine (Pepcid) 20 mg IVP DAILY [facility] Last Admin: 01/06/18 09:32 Dose: 20 mg Levetiracetam (Keppra 500mg Ivpb) 500 mg in 100 mls @ 460 mls/hr IV Q12 [facility] Last Admin: 01/06/18 09:45 Dose: 460 mls/hr Midazolam 100 mg/100ml in NS (Midazolam 100 Mg/100ml In Ns) 100 mg in 100 mls @ 1 mls/hr IV .Q24H PRN; Protocol; 1 MG/HR PRN Reason: Agitation Last Titration: 01/06/18 11:44 Dose: 2 mg/hr, 2 mls/hr Cefepime HCl (Maxipime 1gm) 1 gm in 100 mls @ 100 mls/hr IVPB Q12 NASH PRN Reason: Protocol Stop: 01/14/18 10:01 Last Admin: 01/06/18 09:32 Dose: 100 mls/hr Potassium Chloride (Potassium Chloride 20 Meq/100 Ml) 20 meq in 100 mls @ 50 mls/hr IVPB Q2H NASH Stop: 01/06/18 13:29 Last Admin: 01/06/18 12:33 Dose: 50 mls/hr Insulin Human Regular (Humulin R Low) 0 units SC ACHS NASH PRN Reason: Protocol Last Admin: 01/06/18 11:47 Dose: Not Given Levalbuterol HCl (Xopenex) 1.25 mg IH [id number] PRN PRN Reason: Shortness of Breath Last Admin: 01/03/18 13:16 Dose: 1.25 mg Results - Vital Signs Recent Vital Signs: Last Vital Signs Temp 97.0 F L 01/06/18 06:00 Pulse 70 01/06/18 06:00 Resp 38 H 01/06/18 06:00 BP 119/87 01/06/18 12:34 Pulse Ox 93 L 01/06/18 06:00 - Labs Result Diagrams: 01/06/18 04:35 01/06/18 04:35 Labs: Laboratory Results - last 24 hr 01/04/18 01/05/18 01/05/18 11:00 10:24 11:40 WBC RBC Hgb Hct MCV MCH MCHC RDW Plt Count MPV Gran % Lymph % (Auto) [place] % (Auto) Eos % (Auto) Baso % (Auto) Gran # Lymph # (Auto) [place] # (Auto) Eos # (Auto) Baso # (Auto) PT INR APTT Fibrinogen pCO2 pO2 HCO3 ABG pH ABG Total CO2 ABG O2 Saturation ABG O2 Content ABG Base Excess ABG Hemoglobin ABG Carboxyhemoglobin POC ABG HHb (Measured) ABG Methemoglobin ABG O2 Capacity Hgb O2 Saturation FiO2 Sodium Potassium Chloride Carbon Dioxide Anion Gap BUN Creatinine Est GFR ( Amer) Est GFR (Non-Af Amer) POC Glucose (mg/dL) 117 H 87 Random Glucose Calcium Phosphorus Magnesium Total Bilirubin AST ALT Alkaline Phosphatase Total Protein Albumin Globulin Albumin/Globulin Ratio Stool Occult Blood Blood Type A NEGATIVE Antibody Screen Negative Crossmatch See Detail BBK History Checked Patient has bt 01/05/18 01/05/18 01/05/18 13:48 15:43 18:29 WBC RBC Hgb Hct MCV MCH MCHC RDW Plt Count MPV Gran % Lymph % (Auto) [place] % (Auto) Eos % (Auto) Baso % (Auto) Gran # Lymph # (Auto) [place] # (Auto) Eos # (Auto) Baso # (Auto) PT INR APTT Fibrinogen pCO2 pO2 HCO3 ABG pH ABG Total CO2 ABG O2 Saturation ABG O2 Content ABG Base Excess ABG Hemoglobin ABG Carboxyhemoglobin POC ABG HHb (Measured) ABG Methemoglobin ABG O2 Capacity Hgb O2 Saturation FiO2 Sodium Potassium Chloride Carbon Dioxide Anion Gap BUN Creatinine Est GFR ( Amer) Est GFR (Non-Af Amer) POC Glucose (mg/dL) 106 101 98 Random Glucose Calcium Phosphorus Magnesium Total Bilirubin AST ALT Alkaline Phosphatase Total Protein Albumin Globulin Albumin/Globulin Ratio Stool Occult Blood Blood Type Antibody Screen Crossmatch BBK History Checked 01/05/18 01/05/18 01/05/18 18:50 18:53 20:10 WBC RBC Hgb Hct MCV MCH MCHC RDW Plt Count MPV Gran % Lymph % (Auto) [place] % (Auto) Eos % (Auto) Baso % (Auto) Gran # Lymph # (Auto) [place] # (Auto) Eos # (Auto) Baso # (Auto) PT 19.4 H INR 1.68 APTT Fibrinogen pCO2 pO2 HCO3 ABG pH ABG Total CO2 ABG O2 Saturation ABG O2 Content ABG Base Excess ABG Hemoglobin ABG Carboxyhemoglobin POC ABG HHb (Measured) ABG Methemoglobin ABG O2 Capacity Hgb O2 Saturation FiO2 Sodium Potassium Chloride Carbon Dioxide Anion Gap BUN Creatinine Est GFR ( Amer) Est GFR (Non-Af Amer) POC Glucose (mg/dL) 83 Random Glucose Calcium Phosphorus Magnesium Total Bilirubin AST ALT Alkaline Phosphatase Total Protein Albumin Globulin Albumin/Globulin Ratio Stool Occult Blood Negative Blood Type Antibody Screen Crossmatch BBK History Checked 01/05/18 01/05/18 01/06/18 21:51 23:43 01:56 WBC RBC Hgb Hct MCV MCH MCHC RDW Plt Count MPV Gran % Lymph % (Auto) [place] % (Auto) Eos % (Auto) Baso % (Auto) Gran # Lymph # (Auto) [place] # (Auto) Eos # (Auto) Baso # (Auto) PT INR APTT Fibrinogen pCO2 pO2 HCO3 ABG pH ABG Total CO2 ABG O2 Saturation ABG O2 Content ABG Base Excess ABG Hemoglobin ABG Carboxyhemoglobin POC ABG HHb (Measured) ABG Methemoglobin ABG O2 Capacity Hgb O2 Saturation FiO2 Sodium Potassium Chloride Carbon Dioxide Anion Gap BUN Creatinine Est GFR ( Amer) Est GFR (Non-Af Amer) POC Glucose (mg/dL) 78 99 139 H Random Glucose Calcium Phosphorus Magnesium Total Bilirubin AST ALT Alkaline Phosphatase Total Protein Albumin Globulin Albumin/Globulin Ratio Stool Occult Blood Blood Type Antibody Screen Crossmatch BBK History Checked 01/06/18 01/06/18 01/06/18 04:02 04:35 04:35 WBC 3.2 L D RBC 2.58 L Hgb 7.6 L Hct 20.9 L* MCV 81.0 MCH 29.5 MCHC 36.4 RDW 16.8 H Plt Count 94 L MPV 9.5 Gran % 79.7 H Lymph % (Auto) 19.4 L [place] % (Auto) 0.9 L Eos % (Auto) 0.0 L Baso % (Auto) 0.0 Gran # 2.54 Lymph # (Auto) 0.6 L [place] # (Auto) 0.0 L Eos # (Auto) 0.0 Baso # (Auto) 0.00 PT INR APTT Fibrinogen pCO2 pO2 HCO3 ABG pH ABG Total CO2 ABG O2 Saturation ABG O2 Content ABG Base Excess ABG Hemoglobin ABG Carboxyhemoglobin POC ABG HHb (Measured) ABG Methemoglobin ABG O2 Capacity Hgb O2 Saturation FiO2 Sodium 135 Potassium 2.8 L* D Chloride 98 Carbon Dioxide 18 L Anion Gap 22 H BUN 40 H Creatinine 1.6 H Est GFR ( Amer) 42 Est GFR (Non-Af Amer) 35 POC Glucose (mg/dL) 123 H Random Glucose 118 H Calcium 7.5 L Phosphorus 3.6 Magnesium 1.9 Total Bilirubin 4.1 H AST 169 H D ALT 222 H Alkaline Phosphatase 355 H D Total Protein 5.8 Albumin 3.4 Globulin 2.4 Albumin/Globulin Ratio 1.4 Stool Occult Blood Blood Type Antibody Screen Crossmatch BBK History Checked 01/06/18 01/06/18 01/06/18 04:35 04:35 05:35 WBC RBC Hgb Hct MCV MCH MCHC RDW Plt Count MPV Gran % Lymph % (Auto) [place] % (Auto) Eos % (Auto) Baso % (Auto) Gran # Lymph # (Auto) [place] # (Auto) Eos # (Auto) Baso # (Auto) PT 18.2 H INR 1.57 APTT 33.6 Fibrinogen 187 L pCO2 pO2 HCO3 ABG pH ABG Total CO2 ABG O2 Saturation ABG O2 Content ABG Base Excess ABG Hemoglobin ABG Carboxyhemoglobin POC ABG HHb (Measured) ABG Methemoglobin ABG O2 Capacity Hgb O2 Saturation FiO2 Sodium Potassium Chloride Carbon Dioxide Anion Gap BUN Creatinine Est GFR ( Amer) Est GFR (Non-Af Amer) POC Glucose (mg/dL) 137 H Random Glucose Calcium Phosphorus Magnesium Total Bilirubin AST ALT Alkaline Phosphatase Total Protein Albumin Globulin Albumin/Globulin Ratio Stool Occult Blood Blood Type Antibody Screen Crossmatch BBK History Checked 01/06/18 01/06/18 01/06/18 06:00 07:48 10:25 WBC RBC Hgb Hct MCV MCH MCHC RDW Plt Count MPV Gran % Lymph % (Auto) [place] % (Auto) Eos % (Auto) Baso % (Auto) Gran # Lymph # (Auto) [place] # (Auto) Eos # (Auto) Baso # (Auto) PT INR APTT Fibrinogen pCO2 30 L pO2 72.0 L HCO3 16.6 L ABG pH 7.35 ABG Total CO2 17.5 L ABG O2 Saturation 98.2 H ABG O2 Content 10.2 L ABG Base Excess -8.2 L ABG Hemoglobin 7.5 L ABG Carboxyhemoglobin 2.1 H POC ABG HHb (Measured) 1.8 ABG Methemoglobin 0.6 ABG O2 Capacity 10.4 L Hgb O2 Saturation 95.5 FiO2 60.0 Sodium Potassium Chloride Carbon Dioxide Anion Gap BUN Creatinine Est GFR ( Amer) Est GFR (Non-Af Amer) POC Glucose (mg/dL) 81 102 Random Glucose Calcium Phosphorus Magnesium Total Bilirubin AST ALT Alkaline Phosphatase Total Protein Albumin Globulin Albumin/Globulin Ratio Stool Occult Blood Blood Type Antibody Screen Crossmatch BBK History Checked
[2018-01-06] MEDS: Albumin Human 25% (25 gm/100 ml) IV SCH ×3 (13:02→23:02)
--- NOTE | 2018-01-06 13:27 | RAD ---
Date of service: 01/06/2018 HISTORY: intubated COMPARISON: 01/05/2018 FINDINGS: LUNGS: Infiltrate lower right gabriele thorax and left upper lobe, grossly unchanged. Evaluation is limited due to oblique positioning on prior examination. PLEURA: Possible small right pleural effusion with blunting of right costophrenic angle. No left pleural effusion. No pneumothorax. CARDIOVASCULAR: Normal heart size. NG tube and ET tube are unchanged. Right IJ triple-lumen central venous catheter unchanged. OSSEOUS STRUCTURES: No significant abnormalities. VISUALIZED UPPER ABDOMEN: Normal. OTHER FINDINGS: None. IMPRESSION: No significant interval change.
--- NOTE | 2018-01-06 14:35 | CP.PCM.PN ---
<Donato Basilio - Last Filed: 01/06/18 14:31> Subjective - Date & Time of Evaluation Date of Evaluation: 01/06/18 Time of Evaluation: 09:15 - Subjective Subjective: Donato Basilio DO PGY-1, [facility] Progress Note Pt seen and examined at bedside this am. Intubated, off versed currently. Unable to obtain 12-point ROS due to pt's current mental status. No acute events reported overnight by staff electrical engineer. Pt s/p transfusion of 1 PRBC and 1 FFP yesterday. Objective - Vital Signs/Intake and Output Vital Signs (last 24 hours): Temp Pulse Resp BP Pulse Ox 97.9 F 62 33 H 127/90 100 01/06/18 11:00 01/06/18 13:00 01/06/18 13:00 01/06/18 13:00 01/06/18 13:00 Intake and Output: 01/06/18 01/06/18 06:59 18:59 Intake Total 2094 40 Output Total 0 Balance 2094 40 - Medications Medications: Current Medications Albumin Human (Albumin Human 25% (25 Gm/100 Ml)) 12.5 gm IV Q4 [facility] Last Admin: 01/06/18 13:02 Dose: 12.5 gm Bacitracin (Bacitracin) 1 gm TOP TID [facility] Last Admin: 01/06/18 13:02 Dose: 1 applic Famotidine (Pepcid) 20 mg IVP DAILY [facility] Last Admin: 01/06/18 09:32 Dose: 20 mg Levetiracetam (Keppra 500mg Ivpb) 500 mg in 100 mls @ 460 mls/hr IV Q12 [facility] Last Admin: 01/06/18 09:45 Dose: 460 mls/hr Midazolam 100 mg/100ml in NS (Midazolam 100 Mg/100ml In Ns) 100 mg in 100 mls @ 1 mls/hr IV .Q24H PRN; Protocol; 1 MG/HR PRN Reason: Agitation Last Titration: 01/06/18 11:44 Dose: 2 mg/hr, 2 mls/hr Cefepime HCl (Maxipime 1gm) 1 gm in 100 mls @ 100 mls/hr IVPB Q12 [facility] PRN Reason: Protocol Stop: 01/14/18 10:01 Last Admin: 01/06/18 09:32 Dose: 100 mls/hr Insulin Human Regular (Humulin R Low) 0 units SC ACHS [facility] PRN Reason: Protocol Last Admin: 01/06/18 11:47 Dose: Not Given Levalbuterol HCl (Xopenex) 1.25 mg IH [id number] PRN PRN Reason: Shortness of Breath Last Admin: 01/03/18 13:16 Dose: 1.25 mg - Labs Labs: 01/06/18 04:35 01/06/18 04:35 PT 18.2 SECONDS (9.4-12.5) H 01/06/18 04:35 INR 1.57 01/06/18 04:35 APTT 33.6 Seconds (25.1-36.5) 01/06/18 04:35 - Constitutional Appears: No Acute Distress, Chronically Ill - Head Exam Head Exam: ATRAUMATIC, NORMAL INSPECTION - Eye Exam Additional comments: R pupil in fixed dilation on R side, L pupil sluggish to reflex - ENT Exam ENT Exam: Mucous Membranes Moist - Respiratory Exam Respiratory Exam: Decreased Breath Sounds, NORMAL BREATHING PATTERN Additional comments: Pt intubated on ventilator - Cardiovascular Exam Cardiovascular Exam: REGULAR RHYTHM, +S1, +S2 - GI/Abdominal Exam GI & Abdominal Exam: Soft, Normal Bowel Sounds. absent: Distended, Tenderness - Extremities Exam Extremities Exam: Normal Capillary Refill. absent: Joint Swelling, Pedal Edema - Neurological Exam Additional comments: Pt intubated currently - Skin Skin Exam: Dry, Intact, Warm Assessment and Plan - Assessment and Plan (Free Text) Assessment: 42 year old female PMhx developmental delay, admitted for altered mental status with possible septic shock in the setting of multi-organ failure including liver failure, lactic acidosis, and complicated by possible DIC. Patient likely may have had initial HCAP Aspiration PNA that incited the initial septic shock. Currently in ICU intubated, prognosis poor. Pt currently DNR status. Plan: Acute Hypoxemic Respiratory Failure, likely 2/2 ARDS - Developed episode on 01/01/18 requiring intubation by ICU team - Pt on PRVC, FiO2 50, continue to monitor. - Off versed drip for sedation vacation to reassess mental status - Continue with lung-protective ventilation strategy AMS, likely 2/2 Post Ictal State VS Septic Shock - Continue to treat sepsis to treat AMS. Patient relatively back at baseline - F/u CT brain Seizure - resolved - On Keppra Septic Shock - Patient is off of pressors - Procalcitonin from 12/25/17: 29.2 - Vanco held for progressive thrombocytopenia as per ICU; c/w cefepime - Lactate 3.6 on recent ABG - Recent CXR this am: no significant interval change - ID consulted, recs appreciated Acute Anemia - Hgb 7.6 this am, s/p 1 unit PRBC and 1 unit FFP yesterday, continue to trend H /H Hypokalemia - 2.8 this am; s/p 20 mEqs KCl IVPB q 2 h x 4 doses, trend repeat level LEN - Cr trending up to 1.6 today - F/u bladder U/s - Nephrology consulted, recs appreciated Thrombocytopenia, likely 2/2 DIC - Improving today 94,000 - Fibrin degradation products, d-dimer, and fibrinogen results indicate DIC - Treating Septic shock will treat DIC - Patient has been off of Heparin for many days now - S/p transfusion 2 units FFP and platelets - Heme/onc consulted, recs appreciated Acute liver failure - improving since admission - CT Chest/abd/pelvis findings as described above - Abd U/s 12/28: atrophied liver, diffuse increased echogenicity in liver may reflect hepatic steatosis however parenchymal infectious/inflammatory etiologies cannot be excluded; b/l renal atrophy - LFts trending down today - Hepatitis and HIV work-up neg - Acetaminophen levels neg - GI consulted, recs appreciated: at this point, no new recommendations from GI - Anti-mitochondrial Ab neg, smooth muscle Ab neg Fx L Ribs 7-9 CT chest/abd/pelvis findings as listed above Ribs XR: fxs in L 7th and 8th ribs Continue to monitor GI/DVT ppx: Pepcid (changed from protonix due to low platelets); Heparin held due to low platelets, SCDs Pt seen, examined with, and plan discussed with Dr. Wan, attending. <Bhavik Wan - Last Filed: 01/06/18 16:26> Objective - Vital Signs/Intake and Output Vital Signs (last 24 hours): Temp Pulse Resp BP Pulse Ox 97.5 F L 65 33 H 127/90 96 01/06/18 14:40 01/06/18 14:40 01/06/18 14:00 01/06/18 13:00 01/06/18 14:40 Intake and Output: 01/06/18 01/06/18 06:59 18:59 Intake Total 2093 40 Output Total 0 Balance 2093 40 - Medications Medications: Current Medications Albumin Human (Albumin Human 25% (25 Gm/100 Ml)) 12.5 gm IV Q4 [facility] Last Admin: 01/06/18 13:02 Dose: 12.5 gm Bacitracin (Bacitracin) 1 gm TOP TID [facility] Last Admin: 01/06/18 13:02 Dose: 1 applic Famotidine (Pepcid) 20 mg IVP DAILY [facility] Last Admin: 01/06/18 09:32 Dose: 20 mg Levetiracetam (Keppra 500mg Ivpb) 500 mg in 100 mls @ 460 mls/hr IV Q12 [facility] Last Admin: 01/06/18 09:45 Dose: 460 mls/hr Midazolam 100 mg/100ml in NS (Midazolam 100 Mg/100ml In Ns) 100 mg in 100 mls @ 1 mls/hr IV .Q24H PRN; Protocol; 1 MG/HR PRN Reason: Agitation Last Titration: 01/06/18 11:44 Dose: 2 mg/hr, 2 mls/hr Cefepime HCl (Maxipime 1gm) 1 gm in 100 mls @ 100 mls/hr IVPB Q12 [facility] PRN Reason: Protocol Stop: 01/14/18 10:01 Last Admin: 01/06/18 09:32 Dose: 100 mls/hr Insulin Human Regular (Humulin R Low) 0 units SC ACHS [facility] PRN Reason: Protocol Last Admin: 01/06/18 11:47 Dose: Not Given Levalbuterol HCl (Xopenex) 1.25 mg IH [id number] PRN PRN Reason: Shortness of Breath Last Admin: 01/03/18 13:16 Dose: 1.25 mg - Labs Labs: 01/06/18 04:35 01/06/18 04:35 PT 18.2 SECONDS (9.4-12.5) H 01/06/18 04:35 INR 1.57 01/06/18 04:35 APTT 33.6 Seconds (25.1-36.5) 01/06/18 04:35 Attending/Attestation - Attestation I have personally seen and examined this patient.: Yes I have fully participated in the care of the patient.: Yes I have reviewed all pertinent clinical information, including history, physical exam and plan: Yes Notes (Text): 01/06/18 16:22 Medical record note made by the resident after discussion with my direction and input after the patient was personally seen and examined by me. I have reviewed the chart and agree that the record accurately reflects by personal performance of the history, physical exam, data review, and medical decision-making, in the course for the patient. I have also personally directed the plan of care. 42 yrs old female with mental retardation was admitted with a seizure like episode, hypothermia and hypoglycemia, bradycardia likely secondary to shock. Shock resolved and she was much improved until 12/31 when she went into resp distress/ARDS requiring intubation.Patient was also hypotensive and was requiring pressor. The etiology of her ARDS is likely Infectious , Possible HCAP on IV antibiotics as per ID. She is still hypoxic, FIO 2 requirement is still high 60% Hemohlobin is 7.6 after one unit of PRBC yesterday.There is no evidence of hemolysis . Thrombocytopenia is multifactorial due to sepsis, medication and poor bone marrow response. No signs of blood loss Acute renal failure, oligouric, likely due to hypotension, sepsis and medication.We will get Nephrology consult. LFT are slowly improving. Patient is DNR but not DNI. Prognosis is guarded.
--- NOTE | 2018-01-06 14:53 | CP.PCM.PN ---
Subjective - Date & Time of Evaluation Date of Evaluation: 01/06/18 Time of Evaluation: 09:50 - Subjective Subjective: Continues to be on the ventilator, no fevers overnight but is on a warming blanket, poorly responsive, no diarrhea. Objective - Vital Signs/Intake and Output Vital Signs (last 24 hours): Temp Pulse Resp BP Pulse Ox 97.0 F L 70 38 H 138/92 H 93 L 01/06/18 06:00 01/06/18 06:00 01/06/18 06:00 01/06/18 06:00 01/06/18 06:00 Intake and Output: 01/05/18 01/06/18 18:59 06:59 Intake Total 1798 332 Output Total 50 Balance 1748 332 - Medications Medications: Current Medications Albumin Human (Albumin Human 25% (12.5 Gm/50 Ml)) 12.5 gm IV Q4 [facility] Last Admin: 01/06/18 03:11 Dose: 12.5 gm Bacitracin (Bacitracin) 1 gm TOP TID [facility] Last Admin: 01/05/18 18:56 Dose: 1 gm Dextrose (Dextrose 50% Inj) 25 ml IVP ONCE PRN PRN Reason: Hypoglycemia Last Admin: 01/04/18 04:31 Dose: 25 ml Famotidine (Pepcid) 20 mg IVP DAILY [facility] Last Admin: 01/05/18 12:17 Dose: 20 mg Levetiracetam (Keppra 500mg Ivpb) 500 mg in 100 mls @ 460 mls/hr IV Q12 [facility] Last Admin: 01/05/18 21:56 Dose: 460 mls/hr Dextrose (Dextrose 5% In Water 1000 Ml) 1,000 mls @ 100 mls/hr IV .Q10H [facility] Last Admin: 01/06/18 00:54 Dose: 100 mls/hr Fentanyl Citrate (Fentanyl Citrate/Sodium Chloride 1 Mg/100 Ml) 1,000 mcg in 100 mls @ 2 mls/hr IV .Q24H PRN; Protocol; 20 MCG/HR PRN Reason: TITRATE PER MD ORDER Last Titration: 01/04/18 07:45 Dose: 0 mcg/hr, 0 mls/hr Vasopressin 20 units/ Dextrose 101 mls @ 9.09 mls/hr IV .Q11H7M [facility]; 0.03 U/MIN PRN Reason: Protocol Last Admin: 01/05/18 09:16 Dose: Not Given NOREPINEPHRINE BIT/0.9 % NACL (Levophed 4 Mg/ 250 Ml Ns Premixed) 4 mg in 250 mls @ 15 mls/hr IV .[id number] PRN; Protocol; 4 MCG/MIN PRN Reason: TITRATE PER MD ORDER Last Admin: 01/04/18 16:56 Dose: 20 mcg/min, 75 mls/hr Midazolam 100 mg/100ml in NS (Midazolam 100 Mg/100ml In Ns) 100 mg in 100 mls @ 1 mls/hr IV .Q24H PRN; Protocol; 1 MG/HR PRN Reason: Agitation Last Titration: 01/06/18 02:00 Dose: 2 mg/hr, 2 mls/hr Cefepime HCl (Maxipime 1gm) 1 gm in 100 mls @ 100 mls/hr IVPB Q12 [facility] PRN Reason: Protocol Stop: 01/14/18 10:01 Last Admin: 01/05/18 21:56 Dose: 100 mls/hr Potassium Chloride (Potassium Chloride 20 Meq/100 Ml) 20 meq in 100 mls @ 50 mls/hr IVPB Q2H [facility] Stop: 01/06/18 13:29 Last Admin: 01/06/18 06:02 Dose: 50 mls/hr Insulin Human Regular (Humulin R Low) 0 units SC ACHS [facility] PRN Reason: Protocol Last Admin: 01/05/18 22:00 Dose: Not Given Levalbuterol HCl (Xopenex) 1.25 mg IH [id number] PRN PRN Reason: Shortness of Breath Last Admin: 01/03/18 13:16 Dose: 1.25 mg Midazolam HCl (Versed Inj) 2 mg IVP Q4 PRN PRN Reason: Agitation Last Admin: 01/05/18 18:55 Dose: 2 mg Potassium Phos/Sodium Phos (Neutra-Phos) 1 pkt PO TID [facility] Last Admin: 12/31/17 18:50 Dose: 1 pkt - Labs Labs: 01/06/18 04:35 01/06/18 04:35 PT 19.4 SECONDS (9.4-12.5) H 01/05/18 18:53 INR 1.68 01/05/18 18:53 APTT 53.5 Seconds (25.1-36.5) H 01/05/18 05:30 - Constitutional Appears: Cachectic, Chronically Ill, Other (intubated) - Head Exam Head Exam: NORMAL INSPECTION - ENT Exam Additional comments: ET tube in place - Neck Exam Additional comments: right IJ central venous catheter in place - Respiratory Exam Respiratory Exam: Decreased Breath Sounds - Cardiovascular Exam Cardiovascular Exam: +S1, +S2 - GI/Abdominal Exam GI & Abdominal Exam: Soft. absent: Tenderness Assessment and Plan - Assessment and Plan (Free Text) Plan: Assessment severe sepsis with acute renal failure due to gram negative bacilli bacteremia, now with VDRF due to HCAP in this patient with malnutrition thrombocytopenia and anemia, multifactorial mental disability and developmental delay cachexia Plan switched to Cefepime from Zosyn (day 12 total antibiotics) due to concern for thrombocytopenia Vancomycin has been discontinued yesterday due to renal failure overall prognosis is poor and patient is now DNR will continue to monitor clinically
--- NOTE | 2018-01-06 16:13 | US ---
Date of service: 01/06/2018 PROCEDURE: Ultrasound of urinary bladder HISTORY: ensure correct ann placement COMPARISON: Not available TECHNIQUE: Transabdominal FINDINGS: There is moderate ascites. A Ann catheter is identified. It is not clearly demonstrated to be within a urinary bladder. There is no distended urinary bladder identified. It is possible that the Ann catheter balloon is within a collapsed urinary bladder though this cannot be determined with certainty from this examination. The uterus is unremarkable in appearance. IMPRESSION: Moderate ascites. Ann catheter identified. The catheter balloon may be within a collapsed urinary bladder but this cannot be determined with certainty from this examination.
[2018-01-06] MEDS ORDERED: Dextrose 50% SYRINGE Inj (50 ml) ONE (16:49)
[2018-01-06] MEDS: Midazolam 100 mg/100ml in NS 100 MG/100 ML SOL IV PRN (17:13)
--- NOTE | 2018-01-06 19:12 | US ---
HISTORY: Leg pain and swelling. Evaluate for DVT PHYSICIAN(S): Sloan Armendariz MD. TECHNIQUE: Duplex sonography and color-flow Doppler with graded compression were used to evaluate the deep venous systems of both lower extremities. The exam is somewhat limited by edema FINDINGS: The visualized deep venous systems of both lower extremities are sonographically normal and compressible. Normal wave forms and augmentation are seen. There is no sonographic evidence for deep venous thrombosis in the visualized segments of both lower extremities. IMPRESSION: No sonographic evidence for deep venous thrombosis in the visualized segments of both lower extremities.
--- NOTE | 2018-01-06 19:12 | US ---
HISTORY: Arm pain and swelling. Evaluate for deep venous thrombosis. PHYSICIAN(S): Sloan Armendariz MD. FINDINGS: The exam is limited by portable technique The visualized internal jugular veins are sonographically normal and compressible. No evidence of obstruction or thrombus this is seen. The visualized segments of the subclavian veins are patent with normal waveforms. No sonographic evidence of obstruction or thrombosis is seen. The visualized deep venous systems of both upper extremities proximally are sonographically normal and compressible. IMPRESSION: 1. No sonographic evidence for deep venous thrombosis in the visualized segments of both upper strategies.
--- NOTE | 2018-01-06 19:13 | US ---
PROCEDURE: Portal vein duplex ultrasound. CLINICAL HISTORY: Evaluate for IVC thrombus PHYSICIAN(S): Sloan Armendariz M.D. FINDINGS: The extrahepatic portal vein is patent with hepatopetal flow. No sonographic evidence for thrombus or obstruction is seen. The 3 hepatic veins are visualized centrally and patent. The hepatic artery is patent. Images of the intrahepatic IVC are normal without obvious thrombus. There is a small amount of ascites present. IMPRESSION: 1. Normal intrahepatic IVC and portal vein
--- NOTE | 2018-01-06 19:58 | CP.PCM.CON ---
History of Present Illness - History of Present Illness History of Present Illness: 42 year old female with a history of developmental delay, presenting s/p fall and seizure like activity, being treated for severe sepsis, gram negative bacteremia, VDRF secondary to pneumonia, with pancytopenia. The patient is currently vented and I am unable to obtain a history from her. Review of her medical records shows pancytopenia and coagulopathy. She is s/p PRBC, plt, FFP transfusion. Past medical, surgical, family, social history cannot be obtained from the patient. Allergies: Per documentation NKA Review of systems cannot be obtained. Past Patient History - Past Social History Smoking Status: Never Smoked - CARDIAC Hx Pacemaker: No - PULMONARY Hx Respiratory Disorders: No - NEUROLOGICAL Hx Neurological Disorder: Yes Other/Comment: developmental delay - HEENT Hx HEENT Problems: No - RENAL Hx Chronic Kidney Disease: No - ENDOCRINE/METABOLIC Hx Endocrine Disorders: No - HEMATOLOGICAL/ONCOLOGICAL Hx Cancer: No - INTEGUMENTARY Hx Dermatological Problems: No - MUSCULOSKELETAL/RHEUMATOLOGICAL Hx Musculoskeletal Disorders: No - GASTROINTESTINAL Hx Gastrointestinal Disorders: No - GENITOURINARY/GYNECOLOGICAL Hx Genitourinary Disorders: No - PSYCHIATRIC Hx Psychophysiologic Disorder: Yes Hx Substance Use: No Other/Comment: Developmental delay - SURGICAL HISTORY Hx Mastectomy: No Meds Allergies/Adverse Reactions: Allergies Allergy/AdvReac Type Severity Reaction Status Date / Time No Known Allergies Allergy Verified 12/25/17 21:52 - Medications Medications: Current Medications Albumin Human (Albumin Human 25% (25 Gm/100 Ml)) 12.5 gm IV Q4 [facility] Last Admin: 01/06/18 17:14 Dose: 12.5 gm Bacitracin (Bacitracin) 1 gm TOP TID [facility] Last Admin: 01/06/18 17:14 Dose: 1 applic Famotidine (Pepcid) 20 mg IVP DAILY [facility] Last Admin: 01/06/18 09:32 Dose: 20 mg Levetiracetam (Keppra 500mg Ivpb) 500 mg in 100 mls @ 460 mls/hr IV Q12 [facility] Last Admin: 01/06/18 09:45 Dose: 460 mls/hr Midazolam 100 mg/100ml in NS (Midazolam 100 Mg/100ml In Ns) 100 mg in 100 mls @ 1 mls/hr IV .Q24H PRN; Protocol; 1 MG/HR PRN Reason: Agitation Last Admin: 01/06/18 17:13 Dose: 2 mg/hr, 2 mls/hr Cefepime HCl (Maxipime 1gm) 1 gm in 100 mls @ 100 mls/hr IVPB Q12 [facility] PRN Reason: Protocol Stop: 01/14/18 10:01 Last Admin: 01/06/18 09:32 Dose: 100 mls/hr Insulin Human Regular (Humulin R Low) 0 units SC ACHS [facility] PRN Reason: Protocol Last Admin: 01/06/18 17:01 Dose: Not Given Levalbuterol HCl (Xopenex) 1.25 mg IH [id number] PRN PRN Reason: Shortness of Breath Last Admin: 01/03/18 13:16 Dose: 1.25 mg Physical Exam - Head Exam Head Exam: ATRAUMATIC - Eye Exam Eye Exam: Normal appearance - ENT Exam ENT Exam: Mucous Membranes Dry - Respiratory Exam Respiratory Exam: NORMAL BREATHING PATTERN - Cardiovascular Exam Cardiovascular Exam: +S1, +S2 - GI/Abdominal Exam GI & Abdominal Exam: Normal Bowel Sounds Results - Vital Signs Recent Vital Signs: Last Vital Signs Temp 96.8 F L 01/06/18 17:02 Pulse 65 01/06/18 17:32 Resp 34 H 01/06/18 17:02 BP 128/76 01/06/18 18:17 Pulse Ox 95 01/06/18 17:02 - Labs Result Diagrams: 01/06/18 04:35 01/06/18 04:35 Labs: Laboratory Results - last 24 hr 01/04/18 01/05/18 01/05/18 11:00 06:00 18:29 WBC RBC Hgb Hct MCV MCH MCHC RDW Plt Count MPV Gran % Lymph % (Auto) [place] % (Auto) Eos % (Auto) Baso % (Auto) Gran # Lymph # (Auto) [place] # (Auto) Eos # (Auto) Baso # (Auto) Differential Comment Cancelled PT INR APTT Fibrinogen pCO2 pO2 HCO3 ABG pH ABG Total CO2 ABG O2 Saturation ABG O2 Content ABG Base Excess ABG Hemoglobin ABG Carboxyhemoglobin POC ABG HHb (Measured) ABG Methemoglobin ABG O2 Capacity Hgb O2 Saturation FiO2 Sodium Potassium Chloride Carbon Dioxide Anion Gap BUN Creatinine Est GFR ( Amer) Est GFR (Non-Af Amer) POC Glucose (mg/dL) 98 Random Glucose Calcium Phosphorus Magnesium Total Bilirubin AST ALT Alkaline Phosphatase Total Protein Albumin Globulin Albumin/Globulin Ratio Blood Type A NEGATIVE Antibody Screen Negative Crossmatch See Detail BBK History Checked Patient has bt 01/05/18 01/05/18 01/05/18 20:10 21:51 23:43 WBC RBC Hgb Hct MCV MCH MCHC RDW Plt Count MPV Gran % Lymph % (Auto) [place] % (Auto) Eos % (Auto) Baso % (Auto) Gran # Lymph # (Auto) [place] # (Auto) Eos # (Auto) Baso # (Auto) Differential Comment PT INR APTT Fibrinogen pCO2 pO2 HCO3 ABG pH ABG Total CO2 ABG O2 Saturation ABG O2 Content ABG Base Excess ABG Hemoglobin ABG Carboxyhemoglobin POC ABG HHb (Measured) ABG Methemoglobin ABG O2 Capacity Hgb O2 Saturation FiO2 Sodium Potassium Chloride Carbon Dioxide Anion Gap BUN Creatinine Est GFR ( Amer) Est GFR (Non-Af Amer) POC Glucose (mg/dL) 83 78 99 Random Glucose Calcium Phosphorus Magnesium Total Bilirubin AST ALT Alkaline Phosphatase Total Protein Albumin Globulin Albumin/Globulin Ratio Blood Type Antibody Screen Crossmatch BBK History Checked 01/06/18 01/06/18 01/06/18 01:56 04:02 04:35 WBC 3.2 L D RBC 2.58 L Hgb 7.6 L Hct 20.9 L* MCV 81.0 MCH 29.5 MCHC 36.4 RDW 16.8 H Plt Count 94 L MPV 9.5 Gran % 79.7 H Lymph % (Auto) 19.4 L [place] % (Auto) 0.9 L Eos % (Auto) 0.0 L Baso % (Auto) 0.0 Gran # 2.54 Lymph # (Auto) 0.6 L [place] # (Auto) 0.0 L Eos # (Auto) 0.0 Baso # (Auto) 0.00 Differential Comment PT INR APTT Fibrinogen pCO2 pO2 HCO3 ABG pH ABG Total CO2 ABG O2 Saturation ABG O2 Content ABG Base Excess ABG Hemoglobin ABG Carboxyhemoglobin POC ABG HHb (Measured) ABG Methemoglobin ABG O2 Capacity Hgb O2 Saturation FiO2 Sodium Potassium Chloride Carbon Dioxide Anion Gap BUN Creatinine Est GFR ( Amer) Est GFR (Non-Af Amer) POC Glucose (mg/dL) 139 H 123 H Random Glucose Calcium Phosphorus Magnesium Total Bilirubin AST ALT Alkaline Phosphatase Total Protein Albumin Globulin Albumin/Globulin Ratio Blood Type Antibody Screen Crossmatch BBK History Checked 01/06/18 01/06/18 01/06/18 04:35 04:35 04:35 WBC RBC Hgb Hct MCV MCH MCHC RDW Plt Count MPV Gran % Lymph % (Auto) [place] % (Auto) Eos % (Auto) Baso % (Auto) Gran # Lymph # (Auto) [place] # (Auto) Eos # (Auto) Baso # (Auto) Differential Comment PT 18.2 H INR 1.57 APTT 33.6 Fibrinogen 187 L pCO2 pO2 HCO3 ABG pH ABG Total CO2 ABG O2 Saturation ABG O2 Content ABG Base Excess ABG Hemoglobin ABG Carboxyhemoglobin POC ABG HHb (Measured) ABG Methemoglobin ABG O2 Capacity Hgb O2 Saturation FiO2 Sodium 135 Potassium 2.8 L* D Chloride 98 Carbon Dioxide 18 L Anion Gap 22 H BUN 40 H Creatinine 1.6 H Est GFR ( Amer) 42 Est GFR (Non-Af Amer) 35 POC Glucose (mg/dL) Random Glucose 118 H Calcium 7.5 L Phosphorus 3.6 Magnesium 1.9 Total Bilirubin 4.1 H AST 169 H D ALT 222 H Alkaline Phosphatase 355 H D Total Protein 5.8 Albumin 3.4 Globulin 2.4 Albumin/Globulin Ratio 1.4 Blood Type Antibody Screen Crossmatch BBK History Checked 01/06/18 01/06/18 01/06/18 05:35 06:00 07:48 WBC RBC Hgb Hct MCV MCH MCHC RDW Plt Count MPV Gran % Lymph % (Auto) [place] % (Auto) Eos % (Auto) Baso % (Auto) Gran # Lymph # (Auto) [place] # (Auto) Eos # (Auto) Baso # (Auto) Differential Comment PT INR APTT Fibrinogen pCO2 30 L pO2 72.0 L HCO3 16.6 L ABG pH 7.35 ABG Total CO2 17.5 L ABG O2 Saturation 98.2 H ABG O2 Content 10.2 L ABG Base Excess -8.2 L ABG Hemoglobin 7.5 L ABG Carboxyhemoglobin 2.1 H POC ABG HHb (Measured) 1.8 ABG Methemoglobin 0.6 ABG O2 Capacity 10.4 L Hgb O2 Saturation 95.5 FiO2 60.0 Sodium Potassium Chloride Carbon Dioxide Anion Gap BUN Creatinine Est GFR ( Amer) Est GFR (Non-Af Amer) POC Glucose (mg/dL) 137 H 81 Random Glucose Calcium Phosphorus Magnesium Total Bilirubin AST ALT Alkaline Phosphatase Total Protein Albumin Globulin Albumin/Globulin Ratio Blood Type Antibody Screen Crossmatch BBK History Checked 01/06/18 01/06/18 01/06/18 10:25 14:07 16:46 WBC RBC Hgb Hct MCV MCH MCHC RDW Plt Count MPV Gran % Lymph % (Auto) [place] % (Auto) Eos % (Auto) Baso % (Auto) Gran # Lymph # (Auto) [place] # (Auto) Eos # (Auto) Baso # (Auto) Differential Comment PT INR APTT Fibrinogen pCO2 pO2 HCO3 ABG pH ABG Total CO2 ABG O2 Saturation ABG O2 Content ABG Base Excess ABG Hemoglobin ABG Carboxyhemoglobin POC ABG HHb (Measured) ABG Methemoglobin ABG O2 Capacity Hgb O2 Saturation FiO2 Sodium Potassium Chloride Carbon Dioxide Anion Gap BUN Creatinine Est GFR ( Amer) Est GFR (Non-Af Amer) POC Glucose (mg/dL) 102 74 55 L Random Glucose Calcium Phosphorus Magnesium Total Bilirubin AST ALT Alkaline Phosphatase Total Protein Albumin Globulin Albumin/Globulin Ratio Blood Type Antibody Screen Crossmatch BBK History Checked 01/06/18 18:15 WBC RBC Hgb Hct MCV MCH MCHC RDW Plt Count MPV Gran % Lymph % (Auto) [place] % (Auto) Eos % (Auto) Baso % (Auto) Gran # Lymph # (Auto) [place] # (Auto) Eos # (Auto) Baso # (Auto) Differential Comment PT INR APTT Fibrinogen pCO2 pO2 HCO3 ABG pH ABG Total CO2 ABG O2 Saturation ABG O2 Content ABG Base Excess ABG Hemoglobin ABG Carboxyhemoglobin POC ABG HHb (Measured) ABG Methemoglobin ABG O2 Capacity Hgb O2 Saturation FiO2 Sodium Potassium Chloride Carbon Dioxide Anion Gap BUN Creatinine Est GFR ( Amer) Est GFR (Non-Af Amer) POC Glucose (mg/dL) 149 H Random Glucose Calcium Phosphorus Magnesium Total Bilirubin AST ALT Alkaline Phosphatase Total Protein Albumin Globulin Albumin/Globulin Ratio Blood Type Antibody Screen Crossmatch BBK History Checked Assessment & Plan (1) DIC (disseminated intravascular coagulation) Assessment and Plan: secondary to infection; on antibiotics s/p FFP cryopercipitate if fibrinogen < 100 Status: Acute (2) Pancytopenia Assessment and Plan: mild leukopenia; no neutropenia anemia of chronic disease, DIC; will check retic, b12, folate, ferritin; s/p PRBC transfusion thrombocytopenia secondary to DIC and sepsis; s/p plt transfusion Status: Acute (3) Coagulopathy Assessment and Plan: secondary to DIC may have a nutritional component s/p FFP Thank you for this interesting consult. Status: Acute
[2018-01-07] MEDS ORDERED: Dextrose 50% SYRINGE Inj (50 ml) ONE (01:18)
[2018-01-07] MEDS ORDERED: Dextrose 50% SYRINGE Inj (50 ml) IVP ONE ×2 (01:20→18:56)
[2018-01-07] MEDS: Albumin Human 25% (25 gm/100 ml) IV SCH ×6 (02:10→19:48)
[2018-01-07 05:40] LABS: ARTERIAL BLOOD GAS HCO3 13.6 mmol/L (21-28); ARTERIAL BLOOD GAS HEMOGLOBIN 7.6 g/dL (11.7-17.4); ARTERIAL BLOOD GAS O2 CAPACITY 10.4 mL/dl (16-24); ARTERIAL BLOOD GAS O2 SAT 96.4 % (95-98); ARTERIAL BLOOD GAS PCO2 24 mm/Hg (35-45); ARTERIAL BLOOD GAS PH 7.36 (7.35-7.45); ARTERIAL BLOOD GAS TCO2 14.3 mmol.L (22-28)
[2018-01-07 07:09] LABS: EOS % 0.2 % (1.5-5.0); GRAN % 84.7 % (50.0-68.0); HEMOGLOBIN 7.7 g/dL (12.0-16.0); LYMPH # 0.6 (1.2-3.4); LYMPH % 14.4 % (22.0-35.0); MEAN CELL VOLUME 80.2 fl (80.0-105.0); MEAN CORPUSCULAR HEMOGLOBIN 28.7 pg (25.0-35.0); MEAN CORPUSCULAR HGB CONC 35.8 g/dl (31.0-37.0); MEAN PLATELET VOLUME 9.9 fl (7.0-11.0); MONO % 0.7 % (1.0-6.0); RBC 2.68 10^6/uL (3.5-6.1); RED CELL DISTRIBUTION WIDTH 17.6 % (11.5-14.5)
[2018-01-07 07:28] LABS: ALB/GLOB RATIO 2.2 (1.1-1.8); ALBUMIN 4.3 g/dL (3.0-4.8)
[2018-01-07] MEDS: metroNIDAZOLE IV 500 mg/100 ml 500 MG/100 ML BAG IVPB SCH ×3 (07:49→21:00)
[2018-01-07 07:50] LABS: PLATELET COUNT 46 10^3/uL (120.0-450.0)
[2018-01-07] MEDS: Insulin Reg-LOW-Coverage SC SCH ×4 (08:15→21:00)
[2018-01-07] MEDS: levETIRAcetam 500mg IVPB 500 MG/100 ML BAG IV SCH ×2 (09:20→21:00)
[2018-01-07] MEDS: Cefepime 1gm in NS 100ml 1 GM/100 ML BAG IVPB SCH ×2 (09:20→21:00)
[2018-01-07] MEDS: Bacitracin Ointment 30 GM TUBE TOP SCH ×3 (09:37→17:12)
--- NOTE | 2018-01-07 10:08 | RAD ---
Date of service: 01/07/2018 HISTORY: intubated COMPARISON: 01/06/2018 FINDINGS: LUNGS: Bilateral perihilar infiltrates, grossly unchanged accounting for differences in technique. PLEURA: No significant pleural effusion identified, no pneumothorax apparent. CARDIOVASCULAR: Normal heart size. ET tube, NG tube and right IJ triple-lumen central venous catheter are unchanged. OSSEOUS STRUCTURES: No significant abnormalities. VISUALIZED UPPER ABDOMEN: Normal. OTHER FINDINGS: None. IMPRESSION: Persistent bilateral perihilar infiltrates. Possible pneumonia versus aspiration. Doubt pulmonary edema. Lines and tubes unchanged.
[2018-01-07] MEDS ORDERED: Thiamine 100 mg/ml Inj IV SCH (10:30)
--- NOTE | 2018-01-07 10:30 | CP.CCUPN ---
<Tenzin Welch - Last Filed: 01/07/18 20:31> CCU Subjective - Physician Review Subjective (Free Text): Tenzin Welch DO PGY1 - Internal Medicine Psychiatry Physician - ICU Progress Note Seen this AM at bedside; No changes reported overnight Unresponsive on sedation vacation; and unresponsive >12H post shutting off the drip. 01/07/18 20:31 CCU Objective - Vital Signs / Intake & Output Vital Signs (Last 4 hours): Vital Signs Temp Pulse Pulse Ox 01/07/18 09:00 57 L 97 01/07/18 08:00 95.7 F L 58 L 97 01/07/18 07:22 66 01/07/18 07:13 71 01/07/18 07:12 71 01/07/18 07:00 64 94 L Intake and Output (Last 8hrs): Intake & Output 01/06/18 01/07/18 01/07/18 22:59 06:59 14:59 Intake Total 1187 826 Output Total 0 20 Balance 1187 806 Weight 39.417 kg Intake: IV 1187 426 Left Forearm 1166 albumin 150 cefepime 100 keppra 100 versed 62 Oral 0 Tube Feeding 350 TPN/PPN 0 Blood Product 0 Lipid 0 Albumin 0 Other 50 Output: Urine 0 20 Urethral (Jimenez) 0 20 Stool 0 Urine/Stool Mix 0 Emesis 0 Oral Regurgitation 0 Other 0 Other: # Voids Urethral (Jimenez) 0 # Bowel Movements 2 3 - Physical Exam Head: Positive for: Atraumatic, Normocephalic Pupils: Positive for: Non-Reactive (Minimally reactive L pupil; R pupil is dilated/fixed ) Conjunctiva: Positive for: Icteric Mouth: Positive for: Other (POOR DENTITION; intubated) Neck: Positive for: Other (Central line access in place. Pressure dressing in place. ) Respiratory/Chest: Positive for: Rhonchi (bilaterally), Other (intubated on PRVC mode). Negative for: Accessory Muscle Use, Wheezes, Decreased Breath Sounds, Rales, Retracting, Tender to Palpation Cardiovascular: Positive for: Regular Rate and Rhythm, Normal S1, S2. Negative for: Murmurs Abdomen: Positive for: Normal Bowel Sounds, Other (Soft; ). Negative for: Tenderness, Distention, Peritoneal Signs, Rebound, Guarding, McBurney's Point Tender, Rovsing's Sign Present, Hernias, Feeding Tubes, Ostomy Tubes, Mass/ Organomegaly, Scars Back: Positive for: Normal Inspection, Other (Severe anasarca around perineum w / some discharge/ weeping ) Upper Extremity: Positive for: Normal Inspection. Negative for: Cyanosis, Edema Lower Extremity: Positive for: Normal Inspection, NORMAL PULSES (Pulses diminished BL). Negative for: Edema Neurological: Positive for: Other (Sedated on Versed drip; R eye dilated sluggish, L eye constricted reactive. Pupils are unequal. ) Skin: Positive for: Warm, Dry, Normal Color. Negative for: Rashes Psychiatric: Positive for: Alert, Lethargic - Medications Active Medications: Active Medications Generic Name Dose Route Start Last Admin Trade Name Freq PRN Reason Stop Dose Admin Albumin Human 12.5 gm 01/06/18 11:41 01/07/18 08:15 Albumin Human 25% (25 Gm/100 Ml) IV 12.5 gm Q4 NASH Administration Bacitracin 1 gm 01/02/18 18:00 01/07/18 09:37 Bacitracin TOP 1 applic TID NASH Administration Famotidine 20 mg 01/05/18 10:45 01/07/18 09:20 Pepcid IVP 20 mg DAILY NASH Administration Levetiracetam 500 mg in 100 mls @ 460 mls/hr 12/27/17 07:57 01/07/18 09:20 Keppra 500mg Ivpb IV 460 mls/hr Q12 NASH Administration Midazolam 100 mg/100ml in NS 100 mg in 100 mls @ 1 mls/hr 01/04/18 17:17 09/19 02:30 Midazolam 100 Mg/100ml In Ns IV 8 mg/hr .Q24H PRN 8 mls/hr Agitation Titration Protocol 1 MG/HR Cefepime HCl 1 gm in 100 mls @ 100 mls/hr 01/05/18 10:00 01/07/18 09:20 Maxipime 1gm IVPB 01/14/18 10:01 100 mls/hr Q12 NASH Administration Protocol Metronidazole 500 mg in 100 mls @ 100 mls/hr 01/07/18 06:30 01/07/18 07:49 Flagyl IVPB 100 mls/hr Q8 NASH Administration Protocol Thiamine HCl 100 mg/ Sodium 51 mls @ 102 mls/hr 01/07/18 10:30 Chloride IV Q8 NASH Insulin Human Regular 0 units 01/02/18 16:30 01/07/18 08:15 Humulin R Low SC 1 unit [facility] Administration Protocol Levalbuterol HCl 1.25 mg 12/31/17 18:28 01/03/18 13:16 Xopenex IH 1.25 mg [id number] PRN Administration Shortness of Breath - Patient Studies Lab Studies: Microbiology Studies 01/02/18 07:00 Blood Culture - Final Blood NO GROWTH AFTER 5 DAYS Gram Stain - Final TEST NOT PERFORMED 01/02/18 06:45 Blood Culture - Final Blood NO GROWTH AFTER 5 DAYS Gram Stain - Final TEST NOT PERFORMED Lab Studies 01/07/18 01/07/18 01/07/18 Range/Units 07:54 06:40 06:40 WBC 4.0 L D (4.5-11.0) 10^3/ul RBC 2.68 L (3.5-6.1) 10^6/uL Hgb 7.7 L (12.0-16.0) g/dL Hct 21.5 L (36.0-48.0) % MCV 80.2 (80.0-105.0) fl MCH 28.7 (25.0-35.0) pg MCHC 35.8 (31.0-37.0) g/dl RDW 17.6 H (11.5-14.5) % Plt Count 46 L* (120.0-450.0) 10^3/uL MPV 9.9 (7.0-11.0) fl Gran % 84.7 H (50.0-68.0) % Lymph % (Auto) 14.4 L (22.0-35.0) % Estill % (Auto) 0.7 L (1.0-6.0) % Eos % (Auto) 0.2 L (1.5-5.0) % Baso % (Auto) 0.0 (0.0-3.0) % Gran # 3.40 (1.4-6.5) Lymph # (Auto) 0.6 L (1.2-3.4) Estill # (Auto) 0.0 L (0.1-0.6) Eos # (Auto) 0.0 (0.0-0.7) Baso # (Auto) 0.00 (0.0-2.0) K/mm3 Differential Comment pCO2 (35-45) mm/Hg pO2 (80-100) mm/Hg HCO3 (21-28) mmol/L ABG pH (7.35-7.45) ABG Total CO2 (22-28) mmol.L ABG O2 Saturation (95-98) % ABG O2 Content (15-23) ML/dl ABG Base Excess (-2.0-3.0) mmol/L ABG Hemoglobin (11.7-17.4) g/dL ABG Carboxyhemoglobin (0.5-1.5) % POC ABG HHb (Measured) (0-5) % ABG Methemoglobin (0.0-3.0) % ABG O2 Capacity (16-24) mL/dl Hgb O2 Saturation (95.0-98.0) % FiO2 % Sodium 139 (132-148) mmol/L Potassium 3.9 (3.6-5.0) mmol/L Chloride 102 (98-107) mmol/L Carbon Dioxide 17 L (21-33) mmol/L Anion Gap 24 H (10-20) BUN 49 H (7-21) mg/dL Creatinine 1.9 H (0.7-1.2) mg/dl Est GFR ( Amer) 35 Est GFR (Non-Af Amer) 29 POC Glucose (mg/dL) 95 (65-110) mg/dL Random Glucose 106 (70-110) mg/dL Calcium 8.0 L (8.4-10.5) mg/dL Phosphorus 3.4 (2.5-4.5) mg/dL Magnesium 1.8 (1.7-2.2) mg/dL Total Bilirubin 3.7 H (0.2-1.3) mg/dL AST 69 H D (14-36) U/L ALT 140 H (7-56) U/L Alkaline Phosphatase 243 H D (38-126) U/L Total Protein 6.2 (5.8-8.3) g/dL Albumin 4.3 (3.0-4.8) g/dL Globulin 2.0 gm/dL Albumin/Globulin Ratio 2.2 H (1.1-1.8) 01/07/18 01/07/18 01/07/18 Range/Units 06:23 05:20 04:11 WBC (4.5-11.0) 10^3/ul RBC (3.5-6.1) 10^6/uL Hgb (12.0-16.0) g/dL Hct (36.0-48.0) % MCV (80.0-105.0) fl MCH (25.0-35.0) pg MCHC (31.0-37.0) g/dl RDW (11.5-14.5) % Plt Count (120.0-450.0) 10^3/uL MPV (7.0-11.0) fl Gran % (50.0-68.0) % Lymph % (Auto) (22.0-35.0) % Estill % (Auto) (1.0-6.0) % Eos % (Auto) (1.5-5.0) % Baso % (Auto) (0.0-3.0) % Gran # (1.4-6.5) Lymph # (Auto) (1.2-3.4) Estill # (Auto) (0.1-0.6) Eos # (Auto) (0.0-0.7) Baso # (Auto) (0.0-2.0) K/mm3 Differential Comment pCO2 24 L (35-45) mm/Hg pO2 62.0 L (80-100) mm/Hg HCO3 13.6 L (21-28) mmol/L ABG pH 7.36 (7.35-7.45) ABG Total CO2 14.3 L (22-28) mmol.L ABG O2 Saturation 96.4 (95-98) % ABG O2 Content 10.0 L (15-23) ML/dl ABG Base Excess -10.7 L (-2.0-3.0) mmol/L ABG Hemoglobin 7.6 L (11.7-17.4) g/dL ABG Carboxyhemoglobin 2.1 H (0.5-1.5) % POC ABG HHb (Measured) 3.5 (0-5) % ABG Methemoglobin 1.4 (0.0-3.0) % ABG O2 Capacity 10.4 L (16-24) mL/dl Hgb O2 Saturation 93.0 L (95.0-98.0) % FiO2 60.0 % Sodium (132-148) mmol/L Potassium (3.6-5.0) mmol/L Chloride (98-107) mmol/L Carbon Dioxide (21-33) mmol/L Anion Gap (10-20) BUN (7-21) mg/dL Creatinine (0.7-1.2) mg/dl Est GFR ( Amer) Est GFR (Non-Af Amer) POC Glucose (mg/dL) 105 126 H (65-110) mg/dL Random Glucose (70-110) mg/dL Calcium (8.4-10.5) mg/dL Phosphorus (2.5-4.5) mg/dL Magnesium (1.7-2.2) mg/dL Total Bilirubin (0.2-1.3) mg/dL AST (14-36) U/L ALT (7-56) U/L Alkaline Phosphatase (38-126) U/L Total Protein (5.8-8.3) g/dL Albumin (3.0-4.8) g/dL Globulin gm/dL Albumin/Globulin Ratio (1.1-1.8) 01/07/18 01/07/18 01/06/18 Range/Units 02:24 01:03 21:47 WBC (4.5-11.0) 10^3/ul RBC (3.5-6.1) 10^6/uL Hgb (12.0-16.0) g/dL Hct (36.0-48.0) % MCV (80.0-105.0) fl MCH (25.0-35.0) pg MCHC (31.0-37.0) g/dl RDW (11.5-14.5) % Plt Count (120.0-450.0) 10^3/uL MPV (7.0-11.0) fl Gran % (50.0-68.0) % Lymph % (Auto) (22.0-35.0) % Estill % (Auto) (1.0-6.0) % Eos % (Auto) (1.5-5.0) % Baso % (Auto) (0.0-3.0) % Gran # (1.4-6.5) Lymph # (Auto) (1.2-3.4) Estill # (Auto) (0.1-0.6) Eos # (Auto) (0.0-0.7) Baso # (Auto) (0.0-2.0) K/mm3 Differential Comment pCO2 (35-45) mm/Hg pO2 (80-100) mm/Hg HCO3 (21-28) mmol/L ABG pH (7.35-7.45) ABG Total CO2 (22-28) mmol.L ABG O2 Saturation (95-98) % ABG O2 Content (15-23) ML/dl ABG Base Excess (-2.0-3.0) mmol/L ABG Hemoglobin (11.7-17.4) g/dL ABG Carboxyhemoglobin (0.5-1.5) % POC ABG HHb (Measured) (0-5) % ABG Methemoglobin (0.0-3.0) % ABG O2 Capacity (16-24) mL/dl Hgb O2 Saturation (95.0-98.0) % FiO2 % Sodium (132-148) mmol/L Potassium (3.6-5.0) mmol/L Chloride (98-107) mmol/L Carbon Dioxide (21-33) mmol/L Anion Gap (10-20) BUN (7-21) mg/dL Creatinine (0.7-1.2) mg/dl Est GFR ( Amer) Est GFR (Non-Af Amer) POC Glucose (mg/dL) 183 H 59 L 88 (65-110) mg/dL Random Glucose (70-110) mg/dL Calcium (8.4-10.5) mg/dL Phosphorus (2.5-4.5) mg/dL Magnesium (1.7-2.2) mg/dL Total Bilirubin (0.2-1.3) mg/dL AST (14-36) U/L ALT (7-56) U/L Alkaline Phosphatase (38-126) U/L Total Protein (5.8-8.3) g/dL Albumin (3.0-4.8) g/dL Globulin gm/dL Albumin/Globulin Ratio (1.1-1.8) 01/06/18 01/06/18 01/06/18 Range/Units 19:47 18:15 16:46 WBC (4.5-11.0) 10^3/ul RBC (3.5-6.1) 10^6/uL Hgb (12.0-16.0) g/dL Hct (36.0-48.0) % MCV (80.0-105.0) fl MCH (25.0-35.0) pg MCHC (31.0-37.0) g/dl RDW (11.5-14.5) % Plt Count (120.0-450.0) 10^3/uL MPV (7.0-11.0) fl Gran % (50.0-68.0) % Lymph % (Auto) (22.0-35.0) % Estill % (Auto) (1.0-6.0) % Eos % (Auto) (1.5-5.0) % Baso % (Auto) (0.0-3.0) % Gran # (1.4-6.5) Lymph # (Auto) (1.2-3.4) Estill # (Auto) (0.1-0.6) Eos # (Auto) (0.0-0.7) Baso # (Auto) (0.0-2.0) K/mm3 Differential Comment pCO2 (35-45) mm/Hg pO2 (80-100) mm/Hg HCO3 (21-28) mmol/L ABG pH (7.35-7.45) ABG Total CO2 (22-28) mmol.L ABG O2 Saturation (95-98) % ABG O2 Content (15-23) ML/dl ABG Base Excess (-2.0-3.0) mmol/L ABG Hemoglobin (11.7-17.4) g/dL ABG Carboxyhemoglobin (0.5-1.5) % POC ABG HHb (Measured) (0-5) % ABG Methemoglobin (0.0-3.0) % ABG O2 Capacity (16-24) mL/dl Hgb O2 Saturation (95.0-98.0) % FiO2 % Sodium (132-148) mmol/L Potassium (3.6-5.0) mmol/L Chloride (98-107) mmol/L Carbon Dioxide (21-33) mmol/L Anion Gap (10-20) BUN (7-21) mg/dL Creatinine (0.7-1.2) mg/dl Est GFR ( Amer) Est GFR (Non-Af Amer) POC Glucose (mg/dL) 100 149 H 55 L (65-110) mg/dL Random Glucose (70-110) mg/dL Calcium (8.4-10.5) mg/dL Phosphorus (2.5-4.5) mg/dL Magnesium (1.7-2.2) mg/dL Total Bilirubin (0.2-1.3) mg/dL AST (14-36) U/L ALT (7-56) U/L Alkaline Phosphatase (38-126) U/L Total Protein (5.8-8.3) g/dL Albumin (3.0-4.8) g/dL Globulin gm/dL Albumin/Globulin Ratio (1.1-1.8) 01/06/18 01/06/18 01/05/18 Range/Units 14:07 10:25 06:00 WBC (4.5-11.0) 10^3/ul RBC (3.5-6.1) 10^6/uL Hgb (12.0-16.0) g/dL Hct (36.0-48.0) % MCV (80.0-105.0) fl MCH (25.0-35.0) pg MCHC (31.0-37.0) g/dl RDW (11.5-14.5) % Plt Count (120.0-450.0) 10^3/uL MPV (7.0-11.0) fl Gran % (50.0-68.0) % Lymph % (Auto) (22.0-35.0) % Estill % (Auto) (1.0-6.0) % Eos % (Auto) (1.5-5.0) % Baso % (Auto) (0.0-3.0) % Gran # (1.4-6.5) Lymph # (Auto) (1.2-3.4) Estill # (Auto) (0.1-0.6) Eos # (Auto) (0.0-0.7) Baso # (Auto) (0.0-2.0) K/mm3 Differential Comment Cancelled pCO2 (35-45) mm/Hg pO2 (80-100) mm/Hg HCO3 (21-28) mmol/L ABG pH (7.35-7.45) ABG Total CO2 (22-28) mmol.L ABG O2 Saturation (95-98) % ABG O2 Content (15-23) ML/dl ABG Base Excess (-2.0-3.0) mmol/L ABG Hemoglobin (11.7-17.4) g/dL ABG Carboxyhemoglobin (0.5-1.5) % POC ABG HHb (Measured) (0-5) % ABG Methemoglobin (0.0-3.0) % ABG O2 Capacity (16-24) mL/dl Hgb O2 Saturation (95.0-98.0) % FiO2 % Sodium (132-148) mmol/L Potassium (3.6-5.0) mmol/L Chloride (98-107) mmol/L Carbon Dioxide (21-33) mmol/L Anion Gap (10-20) BUN (7-21) mg/dL Creatinine (0.7-1.2) mg/dl Est GFR ( Amer) Est GFR (Non-Af Amer) POC Glucose (mg/dL) 74 102 (65-110) mg/dL Random Glucose (70-110) mg/dL Calcium (8.4-10.5) mg/dL Phosphorus (2.5-4.5) mg/dL Magnesium (1.7-2.2) mg/dL Total Bilirubin (0.2-1.3) mg/dL AST (14-36) U/L ALT (7-56) U/L Alkaline Phosphatase (38-126) U/L Total Protein (5.8-8.3) g/dL Albumin (3.0-4.8) g/dL Globulin gm/dL Albumin/Globulin Ratio (1.1-1.8) Laboratory Results - last 24 hr 01/05/18 01/06/18 01/06/18 06:00 10:25 14:07 WBC RBC Hgb Hct MCV MCH MCHC RDW Plt Count MPV Gran % Lymph % (Auto) Estill % (Auto) Eos % (Auto) Baso % (Auto) Gran # Lymph # (Auto) Estill # (Auto) Eos # (Auto) Baso # (Auto) Differential Comment Cancelled pCO2 pO2 HCO3 ABG pH ABG Total CO2 ABG O2 Saturation ABG O2 Content ABG Base Excess ABG Hemoglobin ABG Carboxyhemoglobin POC ABG HHb (Measured) ABG Methemoglobin ABG O2 Capacity Hgb O2 Saturation FiO2 Sodium Potassium Chloride Carbon Dioxide Anion Gap BUN Creatinine Est GFR ( Amer) Est GFR (Non-Af Amer) POC Glucose (mg/dL) 102 74 Random Glucose Calcium Phosphorus Magnesium Total Bilirubin AST ALT Alkaline Phosphatase Total Protein Albumin Globulin Albumin/Globulin Ratio 01/06/18 01/06/18 01/06/18 16:46 18:15 19:47 WBC RBC Hgb Hct MCV MCH MCHC RDW Plt Count MPV Gran % Lymph % (Auto) Estill % (Auto) Eos % (Auto) Baso % (Auto) Gran # Lymph # (Auto) Estill # (Auto) Eos # (Auto) Baso # (Auto) Differential Comment pCO2 pO2 HCO3 ABG pH ABG Total CO2 ABG O2 Saturation ABG O2 Content ABG Base Excess ABG Hemoglobin ABG Carboxyhemoglobin POC ABG HHb (Measured) ABG Methemoglobin ABG O2 Capacity Hgb O2 Saturation FiO2 Sodium Potassium Chloride Carbon Dioxide Anion Gap BUN Creatinine Est GFR ( Amer) Est GFR (Non-Af Amer) POC Glucose (mg/dL) 55 L 149 H 100 Random Glucose Calcium Phosphorus Magnesium Total Bilirubin AST ALT Alkaline Phosphatase Total Protein Albumin Globulin Albumin/Globulin Ratio 01/06/18 01/07/18 01/07/18 21:47 01:03 02:24 WBC RBC Hgb Hct MCV MCH MCHC RDW Plt Count MPV Gran % Lymph % (Auto) Estill % (Auto) Eos % (Auto) Baso % (Auto) Gran # Lymph # (Auto) Estill # (Auto) Eos # (Auto) Baso # (Auto) Differential Comment pCO2 pO2 HCO3 ABG pH ABG Total CO2 ABG O2 Saturation ABG O2 Content ABG Base Excess ABG Hemoglobin ABG Carboxyhemoglobin POC ABG HHb (Measured) ABG Methemoglobin ABG O2 Capacity Hgb O2 Saturation FiO2 Sodium Potassium Chloride Carbon Dioxide Anion Gap BUN Creatinine Est GFR ( Amer) Est GFR (Non-Af Amer) POC Glucose (mg/dL) 88 59 L 183 H Random Glucose Calcium Phosphorus Magnesium Total Bilirubin AST ALT Alkaline Phosphatase Total Protein Albumin Globulin Albumin/Globulin Ratio 01/07/18 01/07/18 01/07/18 04:11 05:20 06:23 WBC RBC Hgb Hct MCV MCH MCHC RDW Plt Count MPV Gran % Lymph % (Auto) Estill % (Auto) Eos % (Auto) Baso % (Auto) Gran # Lymph # (Auto) Estill # (Auto) Eos # (Auto) Baso # (Auto) Differential Comment pCO2 24 L pO2 62.0 L HCO3 13.6 L ABG pH 7.36 ABG Total CO2 14.3 L ABG O2 Saturation 96.4 ABG O2 Content 10.0 L ABG Base Excess -10.7 L ABG Hemoglobin 7.6 L ABG Carboxyhemoglobin 2.1 H POC ABG HHb (Measured) 3.5 ABG Methemoglobin 1.4 ABG O2 Capacity 10.4 L Hgb O2 Saturation 93.0 L FiO2 60.0 Sodium Potassium Chloride Carbon Dioxide Anion Gap BUN Creatinine Est GFR ( Amer) Est GFR (Non-Af Amer) POC Glucose (mg/dL) 126 H 105 Random Glucose Calcium Phosphorus Magnesium Total Bilirubin AST ALT Alkaline Phosphatase Total Protein Albumin Globulin Albumin/Globulin Ratio 01/07/18 01/07/18 01/07/18 06:40 06:40 07:54 WBC 4.0 L D RBC 2.68 L Hgb 7.7 L Hct 21.5 L MCV 80.2 MCH 28.7 MCHC 35.8 RDW 17.6 H Plt Count 46 L* MPV 9.9 Gran % 84.7 H Lymph % (Auto) 14.4 L Estill % (Auto) 0.7 L Eos % (Auto) 0.2 L Baso % (Auto) 0.0 Gran # 3.40 Lymph # (Auto) 0.6 L Estill # (Auto) 0.0 L Eos # (Auto) 0.0 Baso # (Auto) 0.00 Differential Comment pCO2 pO2 HCO3 ABG pH ABG Total CO2 ABG O2 Saturation ABG O2 Content ABG Base Excess ABG Hemoglobin ABG Carboxyhemoglobin POC ABG HHb (Measured) ABG Methemoglobin ABG O2 Capacity Hgb O2 Saturation FiO2 Sodium 139 Potassium 3.9 Chloride 102 Carbon Dioxide 17 L Anion Gap 24 H BUN 49 H Creatinine 1.9 H Est GFR ( Amer) 35 Est GFR (Non-Af Amer) 29 POC Glucose (mg/dL) 95 Random Glucose 106 Calcium 8.0 L Phosphorus 3.4 Magnesium 1.8 Total Bilirubin 3.7 H AST 69 H D ALT 140 H Alkaline Phosphatase 243 H D Total Protein 6.2 Albumin 4.3 Globulin 2.0 Albumin/Globulin Ratio 2.2 H Fingerstick Blood Sugar Results: 95 Assessment/Plan - Assessment and Plan (Free Text) Assessment: 42F with PMH developmental delay, presented to [facility] [place] for seizure/AMS, initially admitted to ICU for HCAP, found to have gram negative bacteremia, progressed to ARDS, hypoxemic respiratory failure. Stable throughout day; maintained pressure support without use of pressors in AM and Afternoon. Was off of sedation all day today unresponsive with minimal brainstem reflexes intact. Neuro: -GCS 3 at this time; Off of sedation -Intubated -Versed Drip held -Will consider EEG tomorrow to assess brain activity -Ammonia level normal -CT Head on adm negative -Repeat CT Head read pending -seizure, aspiration and high fall risk precautions -EEG wnl -on keppra 500 IV Q12 -Neurology on board -monitor Cardio: -Off of pressors; HD stable -Maintain map >65 -A-Line in place -Junctional Bradycardia as per cardiology; no specific intervention necessary at this time -IVC vegetation vs thrombus seen on bedside US -Abdominal duplex reordered; UE/LE BL Duplex US ordered. Lungs: -Hypoxemic respiratory acidosis 2/2 ARDS due to pneumonia -Remains intubated, on PRVC mode -C/w Cefepime -Continue with HOB elevation> 35 degrees, aspiration precautions. -Continue with protected lung ventilation strategies with TV of 3-6 ml/kg of IBW , plateau pressure less than 35, bronchodilators, keep oxygenation above 90%, pulm toileting Nephro: -LEN WORSENING; -Cr 1.9 <1.6 <1.3 -Will consider HD tmmr as per nephro -Anuric today -Stopped D5 Water; - 80lasix IVP today -Replace lytes, maintain euvolemia. Continue to monitor. -Avoid nephrotoxic agents -monitor -Nephrology consulted GI: -AST/ALT improving -Alk phos elevated stable -TBili elevated stable -Will resume OGT feeds today -monitor Hepatic Workup: -LFTs worsening again; Tbili elevated; -Will get DBili and do bedside U/S -Pending hemolysis workup - LDH and Haptoglobin -Smooth muscle Ab negative -ANCA screen negative -Alpha1 Antitrypsin negative -Anti Mitochondrial Ab negative -No hepatic thrombosis on duplex US -Patient is cachectic with BMI of 10, concern for chronic malnutrition -CT abd/chest shows severe edema in mesenteric fat, esophagitis and pelvis ascites. The swelling is consistent with severe malnutrition with low albumin; Cholelithiasis w/o cholecystitis appreciated -hepatitis panel is negative -CA-125 wnl -GI prophylaxis as below -GI on consult, Dr. Rizo Heme: -Anemia: -s/p 2u prbc 01/04; 1u prbc 01/05 -h/h stable -Thrombocytopenia: -Possibly vancomycin induced vs hemolytic/destructive. Will DC vanc and switch to cefepime at this time -PLT 46<<<<94<<<22 this AM -S/p 1U PLT transfusion 01/05 -INR 1.57<<<2.06; -S/p 2U FFP transfusion 01/05 -Bleeding from central line controlled -Peripheral smear negative for schistocytes, as per discussion with Dr Lentz. -closely monitor : -TVUS unremarkable for ovaries -CA 125 normal Endo: Maintain euglycemia. -c-peptide wnl -TSH WNL ID: -[id number] PNA vs Aspiration PNA -Gram neg bacteremia -On cefepime -CDiff NEGATIVE -Repeat Blood Cx 06/06 12/28 NTD -Blood Cx 05/06 12/25 showed GNR; culture was nonviable -Urine Cx negative -HIV Panel negative -ID Following GI/DVT Ppx: Pepcid IVP, SCDs do not fit Patient was seen, examined, and discussed w/ attending physician Dr. Sage Welch DO PGY1 - Internal Medicine Psychiatry Physician - Pager [phone] - Date & Time Date: 01/07/18 Time: 14:00 <Silver Cazares - Last Filed: 01/08/18 11:45> CCU Objective - Vital Signs / Intake & Output Intake and Output (Last 8hrs): Intake & Output 01/07/18 01/08/18 01/08/18 22:59 06:59 14:59 Intake Total 971 Output Total 0 Balance 971 Intake: IV 531 Right Internal Jugular 150 albumin 150 cefepime 100 keppra 100 versed 16 Oral 0 Tube Feeding 390 TPN/PPN 0 Blood Product 0 Lipid 0 Albumin 0 Other 50 Output: Urine 0 Urethral (Jimenez) 0 Stool 0 Urine/Stool Mix 0 Emesis 0 Oral Regurgitation 0 Other 0 Other: # Voids Urethral (Jimenez) 0 # Bowel Movements 1 - Patient Studies Lab Studies: Lab Studies 01/07/18 01/07/18 01/07/18 Range/Units 19:56 18:55 16:01 POC Glucose (mg/dL) 188 H 41 L 78 (65-110) mg/dL Crossmatch 01/07/18 01/07/18 01/07/18 Range/Units 13:55 11:49 09:59 POC Glucose (mg/dL) 76 77 98 (65-110) mg/dL Crossmatch 01/04/18 Range/Units 11:00 POC Glucose (mg/dL) (65-110) mg/dL Crossmatch See Detail Laboratory Results - last 24 hr 01/04/18 01/07/18 01/07/18 11:00 09:59 11:49 POC Glucose (mg/dL) 98 77 Crossmatch See Detail 01/07/18 01/07/18 01/07/18 13:55 16:01 18:55 POC Glucose (mg/dL) 76 78 41 L Crossmatch 01/07/18 19:56 POC Glucose (mg/dL) 188 H Crossmatch Attending/Attestation - Attestation I have personally seen and examined this patient.: Yes I have reviewed all pertinent clinical information: Yes Notes (Text): 01/08/18 11:41 42 yo with severe sepsis due to severe pneumonia, c/w MODS, including rspiratory failure, LEN/anuria, encephalopathy, progression of liver failure. Deterioted despite aggressive supportive care, ncluding protective vent management, hemodynamic support and monitoring, abx. Was unable to reach next of kin to discuss HD catheter-->Dr. Terry is aware, if/once obtain consent for HD from next of kin, will get HD catheter in. ccm time 40 min
[2018-01-07] MEDS: Thiamine 100 MG in Sodium Chloride 0.9% 50 ML IV SCH ×3 (11:04→21:00)
--- NOTE | 2018-01-07 11:04 | CP.PCM.PN ---
Subjective - Date & Time of Evaluation Date of Evaluation: 01/07/18 Time of Evaluation: 09:30 - Subjective Subjective: Continues to be on the ventilator, no fevers but still on warming blanket, not responsive. No diarrhea. Objective - Vital Signs/Intake and Output Vital Signs (last 24 hours): Temp Pulse Resp BP Pulse Ox 97.6 F 65 34 H 119/97 H 99 01/07/18 04:00 01/07/18 06:00 01/07/18 05:00 01/07/18 05:00 01/07/18 05:00 Intake and Output: 01/06/18 01/07/18 18:59 06:59 Intake Total 1216 11 Output Total 0 Balance 1216 11 - Medications Medications: Current Medications Albumin Human (Albumin Human 25% (25 Gm/100 Ml)) 12.5 gm IV Q4 [facility] Last Admin: 01/07/18 05:00 Dose: 12.5 gm Bacitracin (Bacitracin) 1 gm TOP TID [facility] Last Admin: 01/06/18 17:14 Dose: 1 applic Famotidine (Pepcid) 20 mg IVP DAILY [facility] Last Admin: 01/06/18 09:32 Dose: 20 mg Levetiracetam (Keppra 500mg Ivpb) 500 mg in 100 mls @ 460 mls/hr IV Q12 [facility] Last Admin: 01/06/18 23:04 Dose: 460 mls/hr Midazolam 100 mg/100ml in NS (Midazolam 100 Mg/100ml In Ns) 100 mg in 100 mls @ 1 mls/hr IV .Q24H PRN; Protocol; 1 MG/HR PRN Reason: Agitation Last Titration: 01/06/18 22:30 Dose: 4 mg/hr, 4 mls/hr Cefepime HCl (Maxipime 1gm) 1 gm in 100 mls @ 100 mls/hr IVPB Q12 [facility] PRN Reason: Protocol Stop: 01/14/18 10:01 Last Admin: 01/06/18 23:04 Dose: 100 mls/hr Metronidazole (Flagyl) 500 mg in 100 mls @ 100 mls/hr IVPB Q8 [facility] PRN Reason: Protocol Insulin Human Regular (Humulin R Low) 0 units SC ACHS [facility] PRN Reason: Protocol Last Admin: 01/06/18 23:00 Dose: Not Given Levalbuterol HCl (Xopenex) 1.25 mg IH [id number] PRN PRN Reason: Shortness of Breath Last Admin: 01/03/18 13:16 Dose: 1.25 mg - Labs Labs: 01/06/18 04:35 01/06/18 04:35 PT 18.2 SECONDS (9.4-12.5) H 01/06/18 04:35 INR 1.57 01/06/18 04:35 APTT 33.6 Seconds (25.1-36.5) 01/06/18 04:35 - Constitutional Appears: Cachectic, Chronically Ill, Other (intubated, not responsive) - ENT Exam Additional comments: ET tube in place - Neck Exam Additional comments: right IJ TLC in place - Respiratory Exam Respiratory Exam: Decreased Breath Sounds - Cardiovascular Exam Cardiovascular Exam: +S1, +S2 - GI/Abdominal Exam GI & Abdominal Exam: Soft. absent: Tenderness Assessment and Plan - Assessment and Plan (Free Text) Plan: Assessment severe sepsis with acute renal failure due to gram negative bacilli bacteremia, now with VDRF due to HCAP in this patient with malnutrition thrombocytopenia and anemia, multifactorial mental disability and developmental delay cachexia Plan continue Cefepime; switched from Zosyn (day 13 total antibiotics) due to concern for thrombocytopenia ; added Flagyl since gram negative bacilli in the blood was found on the anaerobic bottle Vancomycin has been discontinued yesterday due to renal failure overall prognosis is poor and patient is now DNR will continue to monitor clinically
--- NOTE | 2018-01-07 12:55 | CP.PCM.PN ---
<Donato Basilio - Last Filed: 01/07/18 12:52> Subjective - Date & Time of Evaluation Date of Evaluation: 01/07/18 Time of Evaluation: 09:20 - Subjective Subjective: Donato Basilio DO PGY-1, Bridge Engineer Medicine Progress Note Pt seen and examined at bedside this am. On versed, currently intubated. Unable to obtain 12-point ROS due to pt's current mental status. No acute events reported overnight by staff design engineer. Objective - Vital Signs/Intake and Output Vital Signs (last 24 hours): Temp Pulse Resp BP Pulse Ox 96.0 F L 60 34 H 142/96 H 95 01/07/18 12:00 01/07/18 11:00 01/07/18 05:00 01/07/18 11:03 01/07/18 11:00 Intake and Output: 01/07/18 01/07/18 06:59 18:59 Intake Total 837 Output Total 20 Balance 817 - Medications Medications: Current Medications Albumin Human (Albumin Human 25% (25 Gm/100 Ml)) 12.5 gm IV Q4 [facility] Last Admin: 01/07/18 11:05 Dose: 12.5 gm Bacitracin (Bacitracin) 1 gm TOP TID [facility] Last Admin: 01/07/18 09:37 Dose: 1 applic Famotidine (Pepcid) 20 mg IVP DAILY [facility] Last Admin: 01/07/18 09:20 Dose: 20 mg Levetiracetam (Keppra 500mg Ivpb) 500 mg in 100 mls @ 460 mls/hr IV Q12 [facility] Last Admin: 01/07/18 09:20 Dose: 460 mls/hr Midazolam 100 mg/100ml in NS (Midazolam 100 Mg/100ml In Ns) 100 mg in 100 mls @ 1 mls/hr IV .Q24H PRN; Protocol; 1 MG/HR PRN Reason: Agitation Last Titration: 01/07/18 02:30 Dose: 8 mg/hr, 8 mls/hr Cefepime HCl (Maxipime 1gm) 1 gm in 100 mls @ 100 mls/hr IVPB Q12 [facility] PRN Reason: Protocol Stop: 01/14/18 10:01 Last Admin: 01/07/18 09:20 Dose: 100 mls/hr Metronidazole (Flagyl) 500 mg in 100 mls @ 100 mls/hr IVPB Q8 [facility] PRN Reason: Protocol Last Admin: 01/07/18 07:49 Dose: 100 mls/hr Thiamine HCl 100 mg/ Sodium (Chloride) 51 mls @ 102 mls/hr IV Q8 [facility] Last Admin: 01/07/18 11:04 Dose: 102 mls/hr Insulin Human Regular (Humulin R Low) 0 units SC ACHS [facility] PRN Reason: Protocol Last Admin: 01/07/18 08:15 Dose: 1 unit Levalbuterol HCl (Xopenex) 1.25 mg IH [id number] PRN PRN Reason: Shortness of Breath Last Admin: 01/03/18 13:16 Dose: 1.25 mg - Labs Labs: 01/07/18 06:40 01/07/18 06:40 PT 18.2 SECONDS (9.4-12.5) H 01/06/18 04:35 INR 1.57 01/06/18 04:35 APTT 33.6 Seconds (25.1-36.5) 01/06/18 04:35 - Constitutional Appears: No Acute Distress - Head Exam Head Exam: ATRAUMATIC, NORMAL INSPECTION - Eye Exam Additional comments: R pupil fixed in dilation, L pupil sluggish - ENT Exam ENT Exam: Mucous Membranes Moist - Respiratory Exam Respiratory Exam: Decreased Breath Sounds, NORMAL BREATHING PATTERN Additional comments: Pt intubated on ventilator - Cardiovascular Exam Cardiovascular Exam: Bradycardia, +S1, +S2 - GI/Abdominal Exam GI & Abdominal Exam: Soft, Normal Bowel Sounds. absent: Distended, Guarding, Tenderness, Rebound - Extremities Exam Extremities Exam: Normal Capillary Refill. absent: Joint Swelling, Pedal Edema - Neurological Exam Additional comments: Pt currently intubated - Skin Skin Exam: Dry, Intact, Warm Assessment and Plan - Assessment and Plan (Free Text) Assessment: 42 year old female PMhx developmental delay, admitted for altered mental status with possible septic shock in the setting of multi-organ failure including liver failure, lactic acidosis, and complicated by possible DIC. Patient likely may have had initial HCAP Aspiration PNA that incited the initial septic shock. Currently in ICU intubated, prognosis poor. Pt currently DNR status. Plan: Acute Hypoxemic Respiratory Failure, likely 2/2 ARDS - Developed episode on 8/30/18 requiring intubation by ICU team - Pt on PRVC, FiO2 60, continue to monitor - On versed drip - Continue with lung-protective ventilation strategy AMS, likely 2/2 Post Ictal State VS Septic Shock - Continue to treat sepsis to treat AMS. Patient relatively back at baseline Seizure - resolved - On Keppra Septic Shock - Patient is off of pressors - Procalcitonin from 12/25/17: 29.2 - Vanco held for progressive thrombocytopenia as per ICU; c/w cefepime; flagyl added today as per ID - Lactate 3.6 on recent ABG - Recent CXR this am: persistent b/l perihilar infiltrates, possible PNA vs. aspiration, doubt pulmonary edema - ID consulted, recs appreciated Acute Anemia - Hgb 7.7 this am, continue to trend H/H Hypokalemia - resolved - Cont to trend CMP, monitor and replete electrolytes as needed LEN - Cr trending up to 1.9 today - Bladder U/s neg for retention - Nephrology consulted, recs appreciated Thrombocytopenia, likely 2/2 DIC - Today 46,000 - Fibrin degradation products, d-dimer, and fibrinogen results indicate DIC - Treating Septic shock will treat DIC - Patient has been off of Heparin for many days now - S/p transfusion 2 units FFP and platelets - Heme/onc consulted, recs appreciated; per Dr. Barton, cryoprecipitate if fibrinogen < 100 Acute liver failure - improving since admission - CT Chest/abd/pelvis findings as described above - Abd U/s 12/28: atrophied liver, diffuse increased echogenicity in liver may reflect hepatic steatosis however parenchymal infectious/inflammatory etiologies cannot be excluded; b/l renal atrophy - LFts trending down today - Hepatitis and HIV work-up neg - Acetaminophen levels neg - GI consulted, recs appreciated: at this point, no new recommendations from GI - Anti-mitochondrial Ab neg, smooth muscle Ab neg Fx L Ribs 7-9 CT chest/abd/pelvis findings as listed above Ribs XR: fxs in L 7th and 8th ribs Continue to monitor GI/DVT ppx: Pepcid (changed from protonix due to low platelets); Heparin held due to low platelets, SCDs Pt seen, examined with, and plan discussed with Dr. Wan, attending. <Bhavik Wan - Last Filed: 01/07/18 17:21> Objective - Vital Signs/Intake and Output Vital Signs (last 24 hours): Temp Pulse Resp BP Pulse Ox 97.6 F 63 40 H 128/101 H 96 01/07/18 16:00 01/07/18 14:00 01/07/18 13:56 01/07/18 14:05 01/07/18 14:00 Intake and Output: 01/07/18 01/07/18 06:59 18:59 Intake Total 837 0 Output Total 20 Balance 817 0 - Medications Medications: Current Medications Albumin Human (Albumin Human 25% (25 Gm/100 Ml)) 12.5 gm IV Q4 [facility] Last Admin: 01/07/18 15:15 Dose: 12.5 gm Bacitracin (Bacitracin) 1 gm TOP TID [facility] Last Admin: 01/07/18 17:12 Dose: 1 applic Famotidine (Pepcid) 20 mg IVP DAILY [facility] Last Admin: 01/07/18 09:20 Dose: 20 mg Levetiracetam (Keppra 500mg Ivpb) 500 mg in 100 mls @ 460 mls/hr IV Q12 [facility] Last Admin: 01/07/18 09:20 Dose: 460 mls/hr Midazolam 100 mg/100ml in NS (Midazolam 100 Mg/100ml In Ns) 100 mg in 100 mls @ 1 mls/hr IV .Q24H PRN; Protocol; 1 MG/HR PRN Reason: Agitation Last Titration: 01/07/18 09:15 Dose: 0 mg/hr, 0 mls/hr Cefepime HCl (Maxipime 1gm) 1 gm in 100 mls @ 100 mls/hr IVPB Q12 [facility] PRN Reason: Protocol Stop: 01/14/18 10:01 Last Admin: 01/07/18 09:20 Dose: 100 mls/hr Metronidazole (Flagyl) 500 mg in 100 mls @ 100 mls/hr IVPB Q8 [facility] PRN Reason: Protocol Last Admin: 01/07/18 14:01 Dose: 100 mls/hr Thiamine HCl 100 mg/ Sodium (Chloride) 51 mls @ 102 mls/hr IV Q8 [facility] Last Admin: 01/07/18 13:58 Dose: 102 mls/hr Insulin Human Regular (Humulin R Low) 0 units SC ACHS [facility] PRN Reason: Protocol Last Admin: 01/07/18 17:11 Dose: Not Given Levalbuterol HCl (Xopenex) 1.25 mg IH [id number] PRN PRN Reason: Shortness of Breath Last Admin: 01/07/18 14:01 Dose: 1.25 mg - Labs Labs: 01/07/18 06:40 01/07/18 06:40 PT 18.2 SECONDS (9.4-12.5) H 01/06/18 04:35 INR 1.57 01/06/18 04:35 APTT 33.6 Seconds (25.1-36.5) 01/06/18 04:35 Attending/Attestation - Attestation I have personally seen and examined this patient.: Yes I have fully participated in the care of the patient.: Yes I have reviewed all pertinent clinical information, including history, physical exam and plan: Yes Notes (Text): 01/07/18 17:17 Patient was seen and examined with medical support specialist. 42 yrs old female with mental retardation was admitted with a seizure like episode, hypothermia and hypoglycemia, bradycardia likely secondary to shock. Shock resolved and she was much improved until 12/31 when she went into resp distress/ARDS requiring intubation.Patient was also hypotensive and was requiring pressor.The etiology of her ARDS is likely Infectious , Possible HCAP on IV antibiotics as per ID. She is still hypoxic, FIO 2 requirement is still high 60%Patient is in oligo uric renal failure.Creatinin has increased to 1.9.Case was discussed with Nephrology. Pancytopenia, Anemia is stable.Platelet count is dropped to 46.There is no evidence of bleeding.Hematology evaluation is appreciated. LFT are slowly improving. Patient is DNR Prognosis is guarded.
[2018-01-07] MEDS: Levalbuterol 1.25 MG/3 ML Inhal Soln UD IH PRN (14:01)
[2018-01-07 14:04] VITALS: O2SAT 96
--- NOTE | 2018-01-07 14:14 | PN ---
Copied To: Bk Newton MD Attending MD: Bk Newton MD DATE: 01/07/2018 SUBJECTIVE: Patient is currently off sedation. She is still on the vent, only has a gag response. So far she has very poor or no urine output. PHYSICAL EXAMINATION: VITAL SIGNS: Blood pressure 142/96, heart rate 60, temperature 95.7. HEENT: Pale conjunctivae. CHEST: Bilateral rhonchi. HEART: S1, S2 regular. EXTREMITIES: Significant muscle wasting. LABORATORY DATA: Today's hemoglobin and hematocrit 7.7 and 21.5, white count 4, platelet count 46,000. SMA-7: Sodium 139, potassium 3.9, chloride 102, CO2 17, glucose 106, BUN 49, creatinine 1.9. ASSESSMENT: 1. Gram-negative bacteremia. 2. Respiratory failure. 3. Anemia. 4. Worsening thrombocytopenia. 5. Bilateral pneumonia with the possibility of aspiration. RECOMMENDATIONS: Continue current supportive measures including albumin infusion, IV Flagyl, IV Keppra, IV thiamine, IV Maxipime and Xopenex inhaler. The overall prognosis is grave. Bk Newton MD
--- NOTE | 2018-01-07 14:58 | CP.PCM.PN ---
Subjective - Date & Time of Evaluation Date of Evaluation: 01/07/18 Time of Evaluation: 14:54 - Subjective Subjective: Nephrology Consultation Note: Assessment: critical Anuric Acute Kidney Injury (N17.9) likely multifactorial: possibly due to ATN ( septic shock), medications DIC lactic acidosis, hypokalemia, mild hyponatremia, fluid overload septic shock with pneumonia Anasarca with mod to sev pHTN pancytopenia and coagulopathy, hyperbilirubumienmia developmental delay, severely malnourished state, seizure Altered mental status Plan pt remains anuric, no response to lasix challenge. initiation of renal replacement therapy will be indicated however will need d/w family and palliative care about goals of care and family wishes in view of her current severe illness and high risk for adverse outcomes including despite all aggressive measures. d/w ICU team. if family decided to pursue with dialysis, please place dialysis catheter Maintain hemodynamics stable. Avoid hypotension. Patient not on ACEI/ARB due to recent LEN Monitor Input/Output, daily weights and renal function with basic metabolic panel IV thiamine supplementation ordered heme eval noted supplement lytes as needed Check urine analysis, spot protein/creatinine, albumin/creatinine ratio, urine for eosinophils. Dose meds/antibiotics for reduced GFR. Avoid fleets enema/magnesium based laxatives. Avoid nephrotoxins/NSAIDs/ iodinated contrast (unless needed emergently). Glycemic control Further work up/management as per primary team Thanks for allowing me to participate in care of your patient. Will follow patient with you. Please call if any Qs. d/w team Dr Lyle Terry Office: [phone] Chief Complaint; unable Reason for consult: Acute Kidney Injury HPI: Pt is a 42 F with hx of developmental delay, malnourished state presented initially with complaints of seizures and hospital course was complicated with septic shock with pneumonia, acute respi failure, coag abnormalities with anemia /low plat counts BP high now. was on pressors earlier. had underwent CT with contrast imaging on 12/30/17. had received antibiotics including vanco ROS: unable Physical Examination: General Appearance: ill appearing, intubated, malnourished Vitals reviewed and noted as below Head; Atraumatic, normocephalic ENT: intubated/sedated EYES: Pupils are equal, round Sclera is icteric. Neck; supple no lymphadenopathy, no thyromegaly or bruit Lungs: Increased respiratory rate/effort. Breath sounds bilateral equal and clear anteriorly Heart: Normal rate. s1s2 normal. No rub or gallop. Extremities: 2+ edema. No varicose veins Neurological: Patient is sedated Skin: Warm and dry. Normal turgor. No rash. Palpitation: Normal elasticity for age Abdomen: Abdomen is soft/distended. Bowel sounds +. There is no abdominal tenderness, no guarding/rigidity no organomegaly Psych: unable MSK: no joint tenderness or swelling. Digits and nails normal, no deformity : kidney or bladder not palpable. has ann Labs/imaging reviewed. Past medical history, past surgical history, family history, social history, allergy reviewed and noted as below Family hx: no hx of CKD. Rest non-contributory work up: CT anasarca, renal unremarkable ANCA/Hep B and C neg TSAT 32% Ferritin 182 mod to sev pHTN on echo Objective - Vital Signs/Intake and Output Vital Signs (last 24 hours): Temp Pulse Resp BP Pulse Ox 96.0 F L 63 40 H 128/101 H 96 01/07/18 12:00 01/07/18 14:00 01/07/18 13:56 01/07/18 14:05 01/07/18 14:00 Intake and Output: 01/07/18 01/07/18 06:59 18:59 Intake Total 837 0 Output Total 20 Balance 817 0 - Medications Medications: Current Medications Albumin Human (Albumin Human 25% (25 Gm/100 Ml)) 12.5 gm IV Q4 [facility] Last Admin: 01/07/18 11:05 Dose: 12.5 gm Bacitracin (Bacitracin) 1 gm TOP TID [facility] Last Admin: 01/07/18 13:59 Dose: 1 applic Famotidine (Pepcid) 20 mg IVP DAILY [facility] Last Admin: 01/07/18 09:20 Dose: 20 mg Levetiracetam (Keppra 500mg Ivpb) 500 mg in 100 mls @ 460 mls/hr IV Q12 [facility] Last Admin: 01/07/18 09:20 Dose: 460 mls/hr Midazolam 100 mg/100ml in NS (Midazolam 100 Mg/100ml In Ns) 100 mg in 100 mls @ 1 mls/hr IV .Q24H PRN; Protocol; 1 MG/HR PRN Reason: Agitation Last Titration: 01/07/18 09:15 Dose: 0 mg/hr, 0 mls/hr Cefepime HCl (Maxipime 1gm) 1 gm in 100 mls @ 100 mls/hr IVPB Q12 [facility] PRN Reason: Protocol Stop: 01/14/18 10:01 Last Admin: 01/07/18 09:20 Dose: 100 mls/hr Metronidazole (Flagyl) 500 mg in 100 mls @ 100 mls/hr IVPB Q8 [facility] PRN Reason: Protocol Last Admin: 01/07/18 14:01 Dose: 100 mls/hr Thiamine HCl 100 mg/ Sodium (Chloride) 51 mls @ 102 mls/hr IV Q8 [facility] Last Admin: 01/07/18 13:58 Dose: 102 mls/hr Insulin Human Regular (Humulin R Low) 0 units SC ACHS [facility] PRN Reason: Protocol Last Admin: 01/07/18 12:57 Dose: Not Given Levalbuterol HCl (Xopenex) 1.25 mg IH [id number] PRN PRN Reason: Shortness of Breath Last Admin: 01/07/18 14:01 Dose: 1.25 mg - Labs Labs: 01/07/18 06:40 01/07/18 06:40 PT 18.2 SECONDS (9.4-12.5) H 01/06/18 04:35 INR 1.57 01/06/18 04:35 APTT 33.6 Seconds (25.1-36.5) 01/06/18 04:35
[2018-01-07 16:21] VITALS: TEMP 97.6
[2018-01-07] MEDS ORDERED: DOPamine 400mg/250ml D5W 400 MG/250 ML BAG IV PRN (20:11)
[2018-01-07] MEDS ORDERED: DOPamine 400mg/250ml D5W 400 MG/250 ML BAG IV ONE (20:12)
--- NOTE | 2018-01-07 20:53 | CP.PCM.PN ---
Subjective - Date & Time of Evaluation Date of Evaluation: 01/07/18 Time of Evaluation: 20:49 - Subjective Subjective: Heart rate tended to stay in 20' 30's range. Blood pressure 43/22. Atropine 0.5 mg x 4 was given. Albumin that was due was given. A bolus of D5NS was given. Dopamine was started and was kept at more than maximum dose. Lost pulse ,blood pressure , monitor showed straight line. Patient was pronounced at 08:40 PM. Attempt to inform mother were unsuccessful. Spoke to Uncle Ata of the demise when he was on the floor (9:05PM) [facility] # [id number] Objective - Vital Signs/Intake and Output Vital Signs (last 24 hours): Temp Pulse Resp BP Pulse Ox 97.6 F 63 40 H 128/101 H 96 01/07/18 16:00 01/07/18 18:00 01/07/18 13:56 01/07/18 14:05 01/07/18 14:00 Intake and Output: 01/07/18 01/08/18 18:59 06:59 Intake Total 956 Output Total 0 Balance 956 - Medications Medications: Current Medications Albumin Human (Albumin Human 25% (25 Gm/100 Ml)) 12.5 gm IV Q4 [facility] Last Admin: 01/07/18 19:48 Dose: 12.5 gm Bacitracin (Bacitracin) 1 gm TOP TID [facility] Last Admin: 01/07/18 17:12 Dose: 1 applic Famotidine (Pepcid) 20 mg IVP DAILY [facility] Last Admin: 01/07/18 09:20 Dose: 20 mg Levetiracetam (Keppra 500mg Ivpb) 500 mg in 100 mls @ 460 mls/hr IV Q12 [facility] Last Admin: 01/07/18 09:20 Dose: 460 mls/hr Midazolam 100 mg/100ml in NS (Midazolam 100 Mg/100ml In Ns) 100 mg in 100 mls @ 1 mls/hr IV .Q24H PRN; Protocol; 1 MG/HR PRN Reason: Agitation Last Titration: 01/07/18 09:15 Dose: 0 mg/hr, 0 mls/hr Cefepime HCl (Maxipime 1gm) 1 gm in 100 mls @ 100 mls/hr IVPB Q12 [facility] PRN Reason: Protocol Stop: 01/14/18 10:01 Last Admin: 01/07/18 09:20 Dose: 100 mls/hr Metronidazole (Flagyl) 500 mg in 100 mls @ 100 mls/hr IVPB Q8 [facility] PRN Reason: Protocol Last Admin: 01/07/18 14:01 Dose: 100 mls/hr Thiamine HCl 100 mg/ Sodium (Chloride) 51 mls @ 102 mls/hr IV Q8 [facility] Last Admin: 01/07/18 13:58 Dose: 102 mls/hr Insulin Human Regular (Humulin R Low) 0 units SC ACHS [facility] PRN Reason: Protocol Last Admin: 01/07/18 17:11 Dose: Not Given Levalbuterol HCl (Xopenex) 1.25 mg IH [id number] PRN PRN Reason: Shortness of Breath Last Admin: 01/07/18 14:01 Dose: 1.25 mg - Labs Labs: 01/07/18 06:40 01/07/18 06:40 PT 18.2 SECONDS (9.4-12.5) H 01/06/18 04:35 INR 1.57 01/06/18 04:35 APTT 33.6 Seconds (25.1-36.5) 01/06/18 04:35
--- NOTE | 2018-01-07 21:07 | CP.PCM.PN ---
Subjective - Date & Time of Evaluation Date of Evaluation: 01/07/18 Time of Evaluation: 13:00 - Subjective Subjective: Vented Objective - Vital Signs/Intake and Output Vital Signs (last 24 hours): Temp Pulse Resp BP Pulse Ox 97.6 F 63 40 H 128/101 H 96 01/07/18 16:00 01/07/18 18:00 01/07/18 13:56 01/07/18 14:05 01/07/18 14:00 Intake and Output: 01/07/18 01/08/18 18:59 06:59 Intake Total 956 Output Total 0 Balance 956 - Medications Medications: Current Medications Albumin Human (Albumin Human 25% (25 Gm/100 Ml)) 12.5 gm IV Q4 [facility] Last Admin: 01/07/18 19:48 Dose: 12.5 gm Bacitracin (Bacitracin) 1 gm TOP TID [facility] Last Admin: 01/07/18 17:12 Dose: 1 applic Famotidine (Pepcid) 20 mg IVP DAILY [facility] Last Admin: 01/07/18 09:20 Dose: 20 mg Levetiracetam (Keppra 500mg Ivpb) 500 mg in 100 mls @ 460 mls/hr IV Q12 [facility] Last Admin: 01/07/18 09:20 Dose: 460 mls/hr Midazolam 100 mg/100ml in NS (Midazolam 100 Mg/100ml In Ns) 100 mg in 100 mls @ 1 mls/hr IV .Q24H PRN; Protocol; 1 MG/HR PRN Reason: Agitation Last Titration: 01/07/18 09:15 Dose: 0 mg/hr, 0 mls/hr Cefepime HCl (Maxipime 1gm) 1 gm in 100 mls @ 100 mls/hr IVPB Q12 [facility] PRN Reason: Protocol Stop: 01/14/18 10:01 Last Admin: 01/07/18 09:20 Dose: 100 mls/hr Metronidazole (Flagyl) 500 mg in 100 mls @ 100 mls/hr IVPB Q8 [facility] PRN Reason: Protocol Last Admin: 01/07/18 14:01 Dose: 100 mls/hr Thiamine HCl 100 mg/ Sodium (Chloride) 51 mls @ 102 mls/hr IV Q8 [facility] Last Admin: 01/07/18 13:58 Dose: 102 mls/hr Insulin Human Regular (Humulin R Low) 0 units SC ACHS [facility] PRN Reason: Protocol Last Admin: 01/07/18 17:11 Dose: Not Given Levalbuterol HCl (Xopenex) 1.25 mg IH [id number] PRN PRN Reason: Shortness of Breath Last Admin: 01/07/18 14:01 Dose: 1.25 mg - Labs Labs: 01/07/18 06:40 01/07/18 06:40 PT 18.2 SECONDS (9.4-12.5) H 01/06/18 04:35 INR 1.57 01/06/18 04:35 APTT 33.6 Seconds (25.1-36.5) 01/06/18 04:35 - Head Exam Head Exam: ATRAUMATIC - Eye Exam Eye Exam: Normal appearance - ENT Exam ENT Exam: Mucous Membranes Dry - Respiratory Exam Respiratory Exam: Decreased Breath Sounds - GI/Abdominal Exam GI & Abdominal Exam: Normal Bowel Sounds Assessment and Plan (1) DIC (disseminated intravascular coagulation) Assessment & Plan: secondary to infection; on antibiotics s/p FFP cryopercipitate if fibrinogen < 100 Status: Acute (2) Pancytopenia Assessment & Plan: mild leukopenia; no neutropenia anemia of chronic disease, DIC; will check retic, b12, folate, ferritin; s/p PRBC transfusion thrombocytopenia secondary to DIC and sepsis; s/p plt transfusion Status: Acute (3) Coagulopathy Assessment & Plan: secondary to DIC may have a nutritional component s/p FFP Status: Acute
[2018-01-07 23:08] VITALS: PULSE 22; RESP 16
[2018-01-08] MEDS: Albumin Human 25% (25 gm/100 ml) IV SCH
[2018-01-08 00:37] VITALS: BP 28/11
--- NOTE | 2018-01-08 15:19 | CP.PCM.PCO ---
Physician Communication Note - Physician Communication Note Physician Communication Note: Mother was contacted Addendum Addendum: 01/08/18 15:12 Mother (Abdoulaye Mccartney) contacted hospital today at 1513PM from number She was notified of daughter (Samina Mccartney) passing at this time. Mother hung up phone, and same number was reconnected. Neighbor picked up phone, and was told that the mother (Abdoulaye) will need to come to the hospital in order to determine plans for the . Neighbor stated that mother will require at least one day as she is not well. -Tenzin Welch DO PGY1 Internal Medicine Configurator Physician Communication Note
== END 2018-01-07 20:40 | DRG 584 ==
LOC: ED 15:56 → ERH 18:33 → CCU 20:44
PROVIDERS: ADMIT Internal Medicine; ATTEND Internal Medicine
PROC: 05HM33Z Insertion of Infusion Device into Right Internal Jugular Vein, Percutaneous Approach (ICD-10-PCS; 2017-12-26)
PROC: B543ZZA Ultrasonography of Right Jugular Veins, Guidance (ICD-10-PCS; 2017-12-26)
PROC: 30233K1 Transfusion of Nonautologous Frozen Plasma into Peripheral Vein, Percutaneous Approach (ICD-10-PCS; 2017-12-26)
PROC: 30233N1 Transfusion of Nonautologous Red Blood Cells into Peripheral Vein, Percutaneous Approach (ICD-10-PCS; 2017-12-26)
PROC: 05H633Z Insertion of Infusion Device into Left Subclavian Vein, Percutaneous Approach (ICD-10-PCS; 2017-12-30)
PROC: 3E0F7GC Introduction of Other Therapeutic Substance into Respiratory Tract, Via Natural or Artificial Opening (ICD-10-PCS; 2017-12-31)
PROC: 5A1955Z Respiratory Ventilation, Greater than 96 Consecutive Hours (ICD-10-PCS; principal; 2018-01-01)
PROC: 0BH17EZ Insertion of Endotracheal Airway into Trachea, Via Natural or Artificial Opening (ICD-10-PCS; 2018-01-01)
PROC: 30233R1 Transfusion of Nonautologous Platelets into Peripheral Vein, Percutaneous Approach (ICD-10-PCS; 2018-01-05)
DX: A41.50 Gram-negative sepsis, unspecified (principal); E43 Unspecified severe protein-calorie malnutrition; D65 Disseminated intravascular coagulation [defibrination syndrome]; K72.00 Acute and subacute hepatic failure without coma; J18.9 Pneumonia, unspecified organism; J96.01 Acute respiratory failure with hypoxia; N17.0 Acute kidney failure with tubular necrosis; R65.21 Severe sepsis with septic shock; R64 Cachexia; R56.9 Unspecified convulsions; R18.8 Other ascites; E87.6 Hypokalemia; D61.818 Other pancytopenia; E87.0 Hyperosmolality and hypernatremia; I08.1 Rheumatic disorders of both mitral and tricuspid valves; S22.42XA Multiple fractures of ribs, left side, initial encounter for closed fracture; J90 Pleural effusion, not elsewhere classified; K74.69 Other cirrhosis of liver; T82.838A Hemorrhage due to vascular prosthetic devices, implants and grafts, initial encounter; F79 Unspecified intellectual disabilities; E16.2 Hypoglycemia, unspecified; Z68.1 Body mass index [BMI] 19.9 or less, adult; D50.9 Iron deficiency anemia, unspecified; E83.42 Hypomagnesemia; R62.7 Adult failure to thrive; R00.1 Bradycardia, unspecified; I48.0 Paroxysmal atrial fibrillation; I27.20 Pulmonary hypertension, unspecified; E83.39 Other disorders of phosphorus metabolism; K20.9 Esophagitis, unspecified; R13.12 Dysphagia, oropharyngeal phase; I10 Essential (primary) hypertension; Y95 Nosocomial condition; F81.9 Developmental disorder of scholastic skills, unspecified; Z66 Do not resuscitate; D63.8 Anemia in other chronic diseases classified elsewhere; E03.9 Hypothyroidism, unspecified; K80.20 Calculus of gallbladder without cholecystitis without obstruction; W19.XXXA Unspecified fall, initial encounter; Z74.01 Bed confinement status; Y84.8 Other medical procedures as the cause of abnormal reaction of the patient, or of later complication, without mention of misadventure at the time of the procedure